=== PATIENT | female | born 1965 | race Caucasian/White ===

== ENCOUNTER → 2017-12-17 09:22 | Outpatient (REF) | payer OTHER, SELFPAY ==
[2017-12-17 13:24] LABS: COMMENT (LAB VIEW ONLY) 206.03 mg/dL; Microalb ug/mg Crea 2.7 ug/mg Cr
== END ==
LOC: NCHCN 09:22
PROVIDERS: PCP Family Medicine; Visit Provider Family Medicine
DX: E11.9 Type 2 diabetes mellitus without complications (principal)
CPT/HCPCS: 82043; 82570

== ENCOUNTER 2018-01-26 16:20 | Outpatient (CLI) | payer OTHER, SELFPAY ==
[2018-01-26 16:38] LABS: Abs Immature Grans 0.01 k/cumm (0.0-0.09); Absolute Basophil Count 0.05 k/cumm (0.0-0.2); Absolute Eosinophil Count 0.15 k/cumm (0.0-0.7); Absolute Lymphocyte Count 3.42 k/cumm (1.2-3.4); Absolute Monocyte Count 0.48 k/cumm (0.11-0.7); Absolute Neutrophil Count 3.47 k/cumm (1.2-6.7); Basophils % 0.7; HCT 37.1 % (36.0-46.0); HGB 12.2 g/dL (12.0-15.5); Immature Grans % 0.1; Lymphocytes % 45.1; Mean Corp. HGB Concentration 32.9 g/dL (32.0-36.0); Mean Corpuscular Hemoglobin 28.6 pg (27.0-33.0); Mean Corpuscular Volume 86.9 fL (80-95); Mean Platelet Volume 9.7 fL (8.0-11.0); Monocytes % 6.3; Neutrophils % 45.8; Platelet Count 298 x1000/uL (130-400); RBC 4.27 m/cumm (4.00-5.20); RBC Distribution Width 14.4 % (11.7-14.6); White Blood Cell Count 7.58 k/cumm (4.4-10.8)
[2018-01-26 17:02] LABS: ALT 35 U/L (12-78); AST 14 U/L (15-37); Albumin 3.6 g/dL (3.4-5.0); Alkaline Phosphatase 122 U/L (46-116); Anion Gap 7.1 mmol/L (3-11); BUN 17 mg/dL (7-18); Bilirubin, Total 0.2 mg/dL (0.2-1.0); CO2 28.9 mmol/L (21.0-32.0); CREATININE 0.85 mg/dL (0.55-1.02); Calcium 8.8 mg/dL (8.5-10.1); Chloride 102 mmol/L (98-107); Glucose 104 mg/dL (70-100); Potassium 3.7 mmol/L (3.5-5.1); Sodium 138 mmol/L (136-145); Total Protein 7.5 g/dL (6.4-8.2); Troponin I < 0.02 ng/mL (0.00-0.06)
== END 2018-01-26 16:40 ==
PROVIDERS: PCP Family Medicine; Visit Provider Family Medicine
DX: R07.9 Chest pain, unspecified (principal); R10.11 Right upper quadrant pain
CPT/HCPCS: 36415; 80053; 84484; 85025

== ENCOUNTER 2018-01-29 00:36 | Outpatient (CLI) | payer OTHER, SELFPAY ==
--- NOTE | 2018-01-29 07:22 | DI.US_ITS ---
SYMPTOM/DIAGNOSIS: RUQ ABD PAIN, R10.11 ABDOMEN ULTRASOUND: Routine examination was performed. The study is limited due to patient body habitus and overlying bowel. The aorta, IVC and pancreas were incompletely imaged. The liver is normal in size. There is diffuse increased echogenicity of the liver consistent with fatty infiltration. There is normal flow in the portal vein. There are several stones seen within the gallbladder. They appear mobile. No gallbladder wall thickening or pericholecystic fluid is seen. There is a negative sonographic Fong's sign. There do appear to be some stones in the gallbladder neck. The common duct is within normal limits at .5 cm. The spleen and kidneys are unremarkable. No free fluid is seen in the upper abdomen. IMPRESSION: 1. Cholelithiasis. No biliary ductal dilatation. 2. Hepatic steatosis.
== END 2018-01-29 00:56 ==
PROVIDERS: PCP Family Medicine; Visit Provider Family Medicine
DX: K80.20 Calculus of gallbladder without cholecystitis without obstruction (principal); K76.0 Fatty (change of) liver, not elsewhere classified
CPT/HCPCS: 76700

== ENCOUNTER 2018-04-17 00:16 | Outpatient (CLI) | payer OTHER, SELFPAY ==
--- NOTE | 2018-04-17 11:00 | DI.NM_ITS ---
SYMPTOMS/DIAGNOSIS: ABD PAIN RUQ, R10.11, GALLSTONES, K80.20, RECURRENT EPISODES OF RUQ C/W BILIARY COLIC HEPATOBILIARY SCAN: Hepatobiliary scan was performed with intravenous infusion of 4.7 millicuries of Technetium 99 labeled Mebrofenin. Following injection of radiopharmaceutical there was prompt homogeneous hepatic uptake and there is prompt uptake in the bile ducts, gallbladder and small intestine. CONCLUSION: Negative hepatobiliary scan. No evidence of acute cholecystitis.
== END 2018-04-17 00:36 ==
PROVIDERS: PCP Family Medicine; Visit Provider Family Medicine
DX: R10.11 Right upper quadrant pain (principal); K80.20 Calculus of gallbladder without cholecystitis without obstruction
CPT/HCPCS: 78227

== ENCOUNTER 2018-08-21 11:39 | Outpatient (REF) | payer OTHER, SELFPAY ==
[2018-08-21 19:13] LABS: Abs Immature Grans 0.06 k/cumm (0.0-0.09); HCT 40.9 % (36.0-46.0); HGB 13.2 g/dL (12.0-15.5); Mean Corp. HGB Concentration 32.3 g/dL (32.0-36.0); Mean Corpuscular Hemoglobin 28.6 pg (27.0-33.0); Mean Corpuscular Volume 88.7 fL (80-95); Mean Platelet Volume 10.2 fL (8.0-11.0); Platelet Count 336 x1000/uL (130-400); RBC 4.61 m/cumm (4.00-5.20); RBC Distribution Width 14.4 % (11.7-14.6); White Blood Cell Count 18.58 k/cumm (4.4-10.8)
[2018-08-21 19:29] LABS: NT-proBNP 105 pg/mL
[2018-08-21 19:37] LABS: Absolute Lymphocyte Count 5.57 k/cumm (1.2-3.4); Absolute Monocyte Count 1.67 k/cumm (0.11-0.7); Absolute Neutrophil Count 11.33 k/cumm (1.2-6.7); Atypical Lymphocytes % 1
[2018-08-21 19:39] LABS: Diff Comment Manual Differential; RBC Morphology Normal
== END 2018-08-21 11:59 ==
LOC: NCHCN 11:39
PROVIDERS: PCP Family Medicine; Visit Provider Family Medicine
DX: J20.9 Acute bronchitis, unspecified (principal); R06.02 Shortness of breath
CPT/HCPCS: 83880; 85025

== ENCOUNTER 2018-08-21 16:22 | Outpatient (CLI) | payer OTHER, SELFPAY ==
--- NOTE | 2018-08-21 11:40 | DI.RAD_ITS ---
SYMPTOMS/DIAGNOSIS: ACUTE BRONCHITIS WITH BRONCHOSPASM, J20.9, SHORTNESS OF BREATH, R06.02 PA AND LATERAL CHEST: The heart is normal in size. The lungs are clear. The mediastinal structures and pleura appear intact. CONCLUSION: Normal chest.
== END 2018-08-21 16:42 ==
PROVIDERS: PCP Family Medicine; Visit Provider Family Medicine
DX: J20.9 Acute bronchitis, unspecified (principal); R06.02 Shortness of breath
CPT/HCPCS: 71046

== ENCOUNTER 2018-08-26 00:20 | Outpatient (CLI) | payer OTHER, SELFPAY | END 2018-08-26 00:40 | PROVIDERS: PCP Family Medicine; Visit Provider Family Medicine | DX: R69 Illness, unspecified (principal) ==

== ENCOUNTER 2019-11-23 22:35 | Outpatient (REF) | payer OTHER, SELFPAY ==
[2019-11-23 18:53] LABS: Anion Gap 11.7 mmol/L (3-11); BUN 17 mg/dL (7-18); CO2 24.3 mmol/L (21.0-32.0); CREATININE 0.69 mg/dL (0.55-1.02); Calcium 9.4 mg/dL (8.5-10.1); Calculated LDL 103 mg/dL (<100); Chloride 102 mmol/L (98-107); Cholesterol 189 mg/dL (<200); Glucose 85 mg/dL (74-106); HDL Cholesterol 50 mg/dL (40-60); Sodium 138 mmol/L (136-145); Triglyceride 182 mg/dL (<150)
== END 2019-11-23 22:55 ==
LOC: NCHCN 22:35
PROVIDERS: PCP Family Medicine; Visit Provider Family Medicine
DX: E11.9 Type 2 diabetes mellitus without complications (principal); E78.5 Hyperlipidemia, unspecified
CPT/HCPCS: 80048; 80061

== ENCOUNTER 2019-12-15 02:06 | Outpatient (CLI) | payer OTHER, SELFPAY ==
--- NOTE | 2019-12-15 | DI.MAMMO_ITS ---
EXAM: MG MAMMO SCREENING MG MAMMO SCREENING was view CLINICAL HISTORY: SCREENING, PREVENTIVE CARE,Z00.00 TECHNIQUE: Mammograms were interpreted according to the usual protocol including computer analysis w [employer] CAD system, tomosynthesis and C-view imaging. COMPARISON: 2010 and 2014 FINDINGS: The breasts are composed of mainly fatty density , Breast Density category A. No suspicious masses or suspicious microcalcifications are seen. No skin thickening or abnormal axillary lymph nodes are seen. There has been no significant change from prior exams. IMPRESSION: BI-RADS Category 1, negative. Yearly screening mammography is recommended. Breast Density Category A, fatty density.
== END 2019-12-15 02:26 ==
PROVIDERS: PCP Family Medicine; Visit Provider Family Medicine
DX: Z12.31 Encounter for screening mammogram for malignant neoplasm of breast (principal); R92.2 Inconclusive mammogram
CPT/HCPCS: 77063; 77067

== ENCOUNTER 2020-01-02 10:40 | Emergency (ER) | payer OTHER, SELFPAY ==
[2020-01-02 10:42] VITALS: BP 133/84; PULSE 109; RESP 18; TEMP 36.6; O2SAT 97
[2020-01-02 10:44] VITALS: BP 153/96; PULSE 81; TEMP 36.6; O2SAT 97
--- NOTE | 2020-01-02 10:51 | ED.GENADUL_ITS ---
Discharge Plan Disposition Patient Disposition: HOME Condition: Improving Discharge Details Chief Complaint: Orthopedic Clinical Impression: Calcific tendinitis of left shoulder Primary Care Provider: Moise Lala ED Provider: Malvin Linda Home Meds and New Rx's Prescriptions: Continued acetaminophen [Tylenol] 325 MG tablet 600 mg PO TID RF: 0 bupropion HCl [Wellbutrin SR] 150 MG tablet extended release 12 hr 150 mg PO BID RF: 0 atorvastatin [Lipitor] 20 MG tablet 40 mg PO HS RF: 0 trazodone 50 MG tablet 50 mg PO HS RF: 0 omeprazole 10 MG capsule,delayed release(DR/EC) 20 mg PO BID RF: 0 cholecalciferol (vitamin D3) 5,000 UNIT capsule 5,000 unit PO DAILY RF: 0 vitamin V94-ebiro acid 1 EACH tablet 1 ea PO DAILY RF: 0 FLEXERIL 10 MG tablet 10 mg PO BID RF: 0 gabapentin 300 MG capsule 300 mg PO PRN RF: 0 tizanidine 2 MG tablet 2 mg PO PRN RF: 0 amlodipine 5 MG tablet 5 mg PO DAILY RF: 0 ferrous sulfate 325 MG tablet 325 mg PO BID RF: 0 nabumetone 500 MG tablet 500 mg PO BID RF: 0 albuterol sulfate [Proventil HFA] 90 mcg/actuation HFA aerosol inhaler 2 puff IH 6XD RF: 0 Trulicity 1.5 mg/0.5 mL pen injector 1.5 mg SC QWEEK RF: 0 nortriptyline 10 mg capsule 10 mg PO QHS RF: 0 ibuprofen 600 mg tablet 600 mg PO TID RF: 0 prochlorperazine maleate 10 mg tablet 10 mg PO BID PRNRF: 0 fluconazole [Diflucan] 150 mg tablet 150 mg PO ONCE RF: 0 ipratropium bromide 42 mcg (0.06 %) spray,non-aerosol 2 spray LORENA TID RF: 0 metformin 500 mg tablet 500 mg PO DAILY RF: 0 vitamin B complex [B Complex-Vitamin B12] Tablet 1 tab PO DAILY RF: 0 Discharge Instructions Instructions: Tendinitis (ED) Additional Instructions: Home to rest today. By ice to area to reduce discomfort. Please wear sling as needed for comfort 3 to 4 days time. Please follow-up with physical therapy. Tylenol and/or ibuprofen as needed for pain. Stand Alone Forms: Physical Therapy Referral Medical Decision Making 54-year-old female who caught herself from falling with outstretched overhead left arm 3 days ago. Since that time she has had dull, achy, anterior shoulder pain. She did not injure herself in any other way. No neck pain and no numbness or motor weakness. Most tender overlying bicipital insertion. X-ray reveals soft tissue calcification suspicious for calcific tendinitis. There is no other bony abnormalities appreciated. Patient consented for risks and benefits of a localized steroid injection with Kenalog. This was performed without difficulty. Will place her in a sling for comfort. I will refer her to physical therapy for follow-up. She understands plan of care and indications to seek a reevaluation. HPI General Mode of arrival: ambulatory . Date/Time Provider Initiated Documentation: 01/02/20 10:42 . Limitations to Documentation: no limitations . Information obtained by: patient . History of Present Illness 54 year old F presents to the emergency department with the chief complaint of Left shoulder pain 3 days, described as moderate, Quality is described as dull and constant, and is localized to the left and upper extremity. Patient reports no radiation. Patient started experiencing this hour(s) and it has been constant. No relieving factors improve symptom(s), No exacerbating factors reported . Patient notes denies fever/chills, headaches and shortness of breath. Patient did receive the following treatments prior to arrival, none Related Data Home Medications Medication Instructions Recorded Confirmed Flexeril 10 mg PO BID tab-cap 04/08/13 12/29/13 acetaminophen [Tylenol] 600 mg PO TID tab-cap 04/08/13 12/29/13 atorvastatin [Lipitor] 40 mg PO HS tab-cap 04/08/13 12/29/13 bupropion HCl [Wellbutrin SR] 150 mg PO BID tab-cap 04/08/13 12/29/13 cholecalciferol (vitamin D3) 5,000 unit PO DAILY 04/08/13 12/29/13 omeprazole 20 mg PO BID tab-cap 04/08/13 12/29/13 trazodone 50 mg PO HS 04/08/13 12/29/13 vitamin E72-hpdlb acid 1 ea PO DAILY 04/08/13 12/29/13 gabapentin 300 mg PO PRN 08/19/16 amlodipine 5 mg PO DAILY tab-cap 05/26/17 ferrous sulfate 325 mg PO BID 05/26/17 nabumetone 500 mg PO BID tab-cap 05/26/17 tizanidine 2 mg PO PRN 05/26/17 albuterol sulfate 90 mcg/actuation 2 puff IH 6XD 07/13/19 aerosol inhaler dulaglutide 1.5 mg/0.5 mL 1.5 mg SC QWEEK 07/13/19 subcutaneous pen injector fluconazole 150 mg tablet 150 mg PO ONCE 07/13/19 ibuprofen 600 mg tablet 600 mg PO TID 07/13/19 ipratropium bromide 42 mcg (0.06 2 spray LORENA TID 07/13/19 %) nasal spray metformin 500 mg tablet 500 mg PO DAILY 07/13/19 nortriptyline 10 mg capsule 10 mg PO QHS 07/13/19 prochlorperazine maleate 10 mg 10 mg PO BID PRN 07/13/19 tablet vitamin B complex 1 tab PO DAILY 07/13/19 Allergies Allergy/AdvReac Type Severity Reaction Status Date / Time latex Allergy Severe Skin Rash Unverified 01/02/20 10:50 Penicillins Allergy Severe Skin Rash Unverified 01/02/20 10:50 General Stated Complaint: Orthopedic RIGOBERTO: 3 Review of Systems Narrative: 6 systems reviewed and otherwise negative. No numbness or tingling, no weakness. [facility] Medical History Abnormal uterine bleeding Alopecia Anxiety associated with depression Chest pain (Inactive) Depression (Inactive) Fibromyalgia Gallstones (Acute) GERD (gastroesophageal reflux disease) History of juvenile rheumatoid arthritis (Inactive) HTN (hypertension) Hyperlipidemia LBBB (left bundle branch block) (Acute) Morbid obesity Obstructive sleep apnea Tobacco dependence Tobacco use (Inactive) Trochanteric bursitis, left hip (Acute) Type 2 diabetes mellitus (Acute) Surgical History (Updated 07/13/19 @ 15:07 by Radha Jamil RN) Dilation and curettage H/O: hysterectomy (Chronic) History of Surgical Procedure (Inactive) a. D/C x1. Family History Mother Rheumatoid arthritis Father Heart disease Neoplasm lung ca Social History Smoking/Tobacco Use Status: Current every day Tobacco Type: cigarettes Drug use: Never Substance use type: does not use Do you feel safe at home: Yes Do you feel safe in your relationship?: Yes Exam Narrative Exam Narrative: GEN: awake, alert, oriented 3. Pleasant, well groomed, interactive. HEAD: Normocephalic, atraumatic EYES: PERRL, EOMI NECK: Full ROM, no RODRICK, no menigismus CHEST/RESP: Nontender, clear to auscultation bilateral, no wheeze/rhonchi/rales CARDIOVASCULAR: RRR, no murmur, rub cee. 2+ Rad pulse bilateral EXT: Subjective pain with active range of motion left shoulder. Left shoulder anterior tenderness to palpation. Motor is intact, station intact throughout. Neuro: Grossly normal neurologic exam, conversant, interactive. Psych: Speech fluent, thoughts congruent, affect normal Course Vital Signs Vital signs: Vital Signs Temperature 36.6 C 01/02/20 10:42 Pulse 109 H 01/02/20 10:42 Respiratory Rate 18 01/02/20 10:42 Blood Pressure 133/84 01/02/20 10:42 Pulse Oximetry 97 01/02/20 10:42 Temperature 36.6 C 01/02/20 10:44 Temperature Source Temporal Artery Scan 01/02/20 10:44 Pulse 81 01/02/20 10:44 Respiratory Rate 18 01/02/20 10:42 Respiratory Effort Non-Labored 01/02/20 10:47 Blood Pressure 153/96 H 01/02/20 10:44 Blood Pressure Position Sitting 01/02/20 10:44 Pulse Oximetry 97 01/02/20 10:44 Oxygen Delivery Method Room Air 01/02/20 10:44 Oxygen Flow Rate 0 01/02/20 10:44 Pain Level 7 01/02/20 10:44 Procedures Other Description: After informed consent as to risks and benefits, left anterior bicipital tendon was injected with 2 cc of Marcaine and 1 cc of Kenalog without difficulty
--- NOTE | 2020-01-02 11:15 | DI.RAD_ITS ---
EXAM: XR SHOULDER LT COMPLETE 2+V CLINICAL HISTORY: anterior pain. TECHNIQUE: 2D digital imaging was performed. COMPARISON: No exams were available for comparison FINDINGS: There are degenerative changes of the AC joint and glenoid. There is some spurring at the tip of the acromion. No fracture or dislocation is seen. There are calcifications around the humeral head con sistent with calcific tendinosis. IMPRESSION: No acute abnormality. Degenerative changes and calcific tendinosis. DATA REPOSITORY: RADIATION DOSE DELIVERED:
--- NOTE | 2020-01-02 11:17 | DI.VRAD_ITS ---
PROCEDURE INFORMATION: Exam: XR Left Shoulder Exam date and time: 01/02/2020 11:08 AM Age: 54 years old Clinical indication: Pain; Shoulder; Left TECHNIQUE: Imaging protocol: XR Left shoulder. Views: 2 or more views. COMPARISON: No relevant prior studies available. FINDINGS: Bones/joints: Acromioclavicular degenerative spurring. All bones are intact and normally aligned. Soft tissues: Faint/amorphous type calcification along the lateral margins of the subacromial space suspicious for calcific tendinitis. No joint effusion or joint body. IMPRESSION: 1. Soft tissue calcification suspicious for calcific tendinitis. 2. Acromioclavicular osteoarthrosis. Dictated and Authenticated by: Guille Jimenez MD. Ordering:NAWAF Coombs MD
[2020-01-02] MEDS: Bupivacaine 0.5% Pres-Free 30 ML VIAL IJ (12:01)
[2020-01-02] MEDS: Triamcinolone 40 MG/ML VIAL IM (12:02)
[2020-01-02 12:07] VITALS: BP 152/82; PULSE 74; RESP 16; TEMP 36.6; O2SAT 98
== END 2020-01-02 12:11 | disposition home or self-care (01) ==
PROVIDERS: Emergency Provider Emergency Medicine; PCP Family Medicine
DX: M75.32 Calcific tendinitis of left shoulder (principal); X50.9XXA Other and unspecified overexertion or strenuous movements or postures, initial encounter; I10 Essential (primary) hypertension; E11.9 Type 2 diabetes mellitus without complications
CPT/HCPCS: 20610; 99283; 73030; 99281; L3650

== ENCOUNTER 2020-01-03 10:35 | Emergency (ER) | payer OTHER, SELFPAY ==
[2020-01-03 10:37] VITALS: BP 155/76; PULSE 82; RESP 16; TEMP 36.6; O2SAT 98
--- NOTE | 2020-01-03 11:16 | ED.GENADUL_ITS ---
Discharge Plan Disposition Patient Disposition: HOME Condition: Stable Discharge Details Chief Complaint: Orthopedic Clinical Impression: Left shoulder pain Primary Care Provider: Moise Lala ED Provider: Trupti Galarza Home Meds and New Rx's Prescriptions: Continued acetaminophen [Tylenol] 325 MG tablet 600 mg PO TID RF: 0 atorvastatin [Lipitor] 20 MG tablet 40 mg PO HS RF: 0 trazodone 50 MG tablet 50 mg PO HS RF: 0 omeprazole 10 MG capsule,delayed release(DR/EC) 20 mg PO BID RF: 0 cholecalciferol (vitamin D3) 5,000 UNIT capsule 5,000 unit PO DAILY RF: 0 vitamin X67-iuqey acid 1 EACH tablet 1 ea PO DAILY RF: 0 tizanidine 2 MG tablet 2 mg PO PRN RF: 0 amlodipine 5 MG tablet 5 mg PO DAILY RF: 0 ferrous sulfate 325 MG tablet 325 mg PO BID RF: 0 albuterol sulfate [Proventil HFA] 90 mcg/actuation HFA aerosol inhaler 2 puff IH 6XD RF: 0 Trulicity 1.5 mg/0.5 mL pen injector 1.5 mg SC QWEEK RF: 0 nortriptyline 10 mg capsule 10 mg PO QHS RF: 0 ibuprofen 600 mg tablet 600 mg PO TID RF: 0 prochlorperazine maleate 10 mg tablet 10 mg PO BID PRNRF: 0 metformin 500 mg tablet 500 mg PO DAILY RF: 0 vitamin B complex [B Complex-Vitamin B12] Tablet 1 tab PO DAILY RF: 0 Discharge Instructions Instructions: Shoulder Pain (ED) Additional Instructions: Follow up with primary care provider in 3-5 days. Return to ED sooner if any worsening or concerns. Increase oral fluids. Please take Tylenol or Ibuprofen with food every 4-6 hours as needed for pain and swelling. Take medications as directed for severe pain no driving. Stand Alone Forms: Work Release Referrals: Moise Lala [Primary Care Provider] - Discharge Data Discharge Date/Time-TO BE ENTERED AT DEPARTURE: 01/03/20 11:25 Medical Decision Making We will send patient home with 2 tablets of tramadol and a take-home bottle. Will give work note as requested. HPI General Mode of arrival: ambulatory . Date/Time Provider Initiated Documentation: 01/03/20 11:08 . Limitations to Documentation: no limitations . Information obtained by: patient . HPI Narrative: 54-year-old female presents to the ER for a work note request. Was seen here yesterday and had a steroid injection to her left shoulder. Patient reports increased pain. Does have a PCP appointment on Friday requests a work note until her appointment. Denies any other complaints. Related Data Home Medications Medication Instructions Recorded Confirmed acetaminophen [Tylenol] 600 mg PO TID tab-cap 04/08/13 01/03/20 atorvastatin [Lipitor] 40 mg PO HS tab-cap 04/08/13 01/03/20 cholecalciferol (vitamin D3) 5,000 unit PO DAILY 04/08/13 01/03/20 omeprazole 20 mg PO BID tab-cap 04/08/13 01/03/20 trazodone 50 mg PO HS 04/08/13 01/03/20 vitamin K41-mbjeb acid 1 ea PO DAILY 04/08/13 01/03/20 amlodipine 5 mg PO DAILY tab-cap 05/26/17 01/03/20 ferrous sulfate 325 mg PO BID 05/26/17 01/03/20 tizanidine 2 mg PO PRN 05/26/17 01/03/20 albuterol sulfate 90 mcg/actuation 2 puff IH 6XD 07/13/19 01/03/20 aerosol inhaler dulaglutide 1.5 mg/0.5 mL 1.5 mg SC QWEEK 07/13/19 01/03/20 subcutaneous pen injector ibuprofen 600 mg tablet 600 mg PO TID 07/13/19 01/03/20 metformin 500 mg tablet 500 mg PO DAILY 07/13/19 01/03/20 nortriptyline 10 mg capsule 10 mg PO QHS 07/13/19 01/03/20 prochlorperazine maleate 10 mg 10 mg PO BID PRN 07/13/19 01/03/20 tablet vitamin B complex 1 tab PO DAILY 07/13/19 01/03/20 Allergies Allergy/AdvReac Type Severity Reaction Status Date / Time latex Allergy Severe Skin Rash Unverified 01/03/20 10:44 Penicillins Allergy Severe Skin Rash Unverified 01/03/20 10:44 General Stated Complaint: Orthopedic RIGOBERTO: 4 Review of Systems All systems reviewed & are unremarkable except as noted in HPI and below Musculoskeletal Musculoskeletal: Reports arthralgias (Left shoulder) [facility] Medical History Abnormal uterine bleeding Alopecia Anxiety associated with depression Chest pain (Inactive) Depression (Inactive) Fibromyalgia Gallstones (Acute) GERD (gastroesophageal reflux disease) History of juvenile rheumatoid arthritis (Inactive) HTN (hypertension) Hyperlipidemia LBBB (left bundle branch block) (Acute) Morbid obesity Obstructive sleep apnea Tobacco dependence Tobacco use (Inactive) Trochanteric bursitis, left hip (Acute) Type 2 diabetes mellitus (Acute) Surgical History Dilation and curettage H/O: hysterectomy (Chronic) History of Surgical Procedure (Inactive) a. D/C x1. Family History Mother Rheumatoid arthritis Father Heart disease Neoplasm lung ca Social History Smoking/Tobacco Use Status: Current every day Tobacco Type: cigarettes Drug use: Never Substance use type: does not use Do you feel safe at home: Yes Do you feel safe in your relationship?: Yes Exam Narrative Exam Narrative: Constitutional: Alert and oriented x3. Appears stated age. Normal body habitus. Head: Normocephalic, no trauma. Musculoskeletal: Normal gait, reports left shoulder pain. There is a Band-Aid noted to the anterior aspect where there was a previous steroid injection. No significant swelling or erythema noted. Skin: No suspicious rashes or lesions. Capillary refill less than 2 sec. Neurologic: Cranial nerves II-XII intact. Alert and oriented x 3. Hematologic/Lymphatic: No ecchymosis, no lymphadenopathy. Course Vital Signs Vital signs: Vital Signs Temperature 36.6 C 01/03/20 10:37 Pulse 82 01/03/20 10:37 Respiratory Rate 16 01/03/20 10:37 Blood Pressure 155/76 H 01/03/20 10:37 Pulse Oximetry 98 01/03/20 10:37 Temperature 36.6 C 01/03/20 10:37 Temperature Source Skin 01/03/20 10:37 Pulse 82 01/03/20 10:37 Respiratory Rate 16 01/03/20 10:37 Respiratory Effort 01/03/20 10:42 Blood Pressure 155/76 H 01/03/20 10:37 Blood Pressure Position Sitting 01/03/20 10:37 Pulse Oximetry 98 01/03/20 10:37 Oxygen Delivery Method Room Air 01/03/20 10:37 Oxygen Flow Rate 0 01/03/20 10:37 Pain Level 8 01/03/20 10:42
== END 2020-01-03 11:25 | disposition home or self-care (01) ==
PROVIDERS: Emergency Provider Registered Nurse Emergency; PCP Family Medicine
DX: M25.512 Pain in left shoulder (principal); Z02.79 Encounter for issue of other medical certificate
CPT/HCPCS: 99283; 99282

== ENCOUNTER 2020-01-11 11:04 | Outpatient (CLI) | payer OTHER, SELFPAY ==
--- NOTE | 2020-01-11 10:45 | DI.RAD_ITS ---
EXAM: XR SHOULDER LT 1V CLINICAL HISTORY: f/u ER TECHNIQUE: COMPARISON: CR,XR XR SHOULDER LT COMPLETE 2+V from 01/02/2020 FINDINGS: Single view was obtained and shows the humeral head normally aligned with respect to the glenoid desiree a. IMPRESSION: RADIATION DOSE DELIVERED: Total DLP
== END 2020-01-11 11:24 ==
PROVIDERS: PCP Family Medicine; Referring Provider Family Medicine; Visit Provider Student in an Organized Health Care Education/Training Program
DX: M25.512 Pain in left shoulder (principal)
CPT/HCPCS: 73020

== ENCOUNTER 2020-01-21 04:12 | Outpatient (CLI) | payer OTHER, SELFPAY ==
--- NOTE | 2020-01-21 07:15 | DI.MRI_ITS ---
EXAM: MR UPPER JOINT LT WO CLINICAL HISTORY: Profound acute, traumatic weakness pain, SLAP LESION, S43.432A, S46.012A. TECHNIQUE: Multiplanar multisequence MRI was performed. COMPARISON: CR,XR XR SHOULDER LT COMPLETE 2+V from 01/02/2020 CR XR SHOULDER LT 1V from 01/11/2020 FINDINGS: BONES: There is no fracture or contusion pattern. JOINTS: Mild degenerative changes of the AC joint. The glenohumeral joint is normal. TENDONS: Supraspinatus: Tendinosis of the supraspinatus tendon. Infraspinatus: Tendinosis of the infraspinatus tendon. Subscapularis: Tendinosis of the subscapularis tendon. Teres Minor: Unremarkable. Biceps and Cromwell: Unremarkable. MUSCLES: Unremarkable. GLENOID LABRUM: Unremarkable on this noncontrast examination. MR arthrogram may be obtained for furth er evaluation. SOFT TISSUES: Unremarkable. LIGAMENTS: Unremarkable. OTHER: There is fluid seen in the subacromial subdeltoid bursa. IMPRESSION: 1. Tendinosis involving the rotator cuff tendons. 2. Subacromial subdeltoid bursitis. 3. Degenerative changes of the acromioclavicular joint. DATA REPOSITORY:
== END 2020-01-21 04:32 ==
PROVIDERS: PCP Family Medicine; Visit Provider Student in an Organized Health Care Education/Training Program
DX: M77.9 Enthesopathy, unspecified (principal); M75.52 Bursitis of left shoulder; M19.012 Primary osteoarthritis, left shoulder
CPT/HCPCS: 73221

== ENCOUNTER 2020-03-30 08:40 | Outpatient (CLI) | payer OTHER, SELFPAY ==
[2020-03-31 15:32] LABS: SARS-CoV-2 RNA Not Detected (NotDetected); SARS-CoV-2 RNA Source Nasal/Nares
== END 2020-03-30 09:00 ==
PROVIDERS: PCP Family Medicine; Visit Provider Surgery
DX: Z11.59 Encounter for screening for other viral diseases (principal); Z01.818 Encounter for other preprocedural examination
CPT/HCPCS: U0003

== ENCOUNTER 2020-04-03 10:06 | Day surgery (SDC) | payer OTHER, SELFPAY ==
--- NOTE | 2020-04-03 06:50 | COLE_ITS ---
Date of service: 04/03/20 Time of Service: 11:55 Colonoscopy Report Date of procedure: 04/03/20 Pre-op diagnosis general: Colon Cancer Screening Post-op diagnosis procedure note: other (polyps and mild diverticulosis) Procedure: Colonoscopy with polypectomy Surgeon: Sharona Duran Anesthesia proc note operative: other (General/ASA 2/Heavenly Wilson, JAMIE) Estimated blood loss (mL): 5 Pathology: other (Cecal polyps x2, sigmoid polyps x3, rectal polyp) Complications: None Disposition: same day Indications: The patient is here for Colonoscopy pre-op. She has no family history of colon cancer. She has not had any bowel habit changes. -Discussed colonoscopy bowel prep as well as the procedure. Discussed possible complications of the procedure to include bleeding, pain, perforation, missed small lesion/polyp, sore throat, aspiration and adverse reaction to the medications. Questions were answered to patient?s satisfaction. No guarantees were implied or given. Prep: Miralax/Dulcolax Procedure Start Time: 11:55 Procedure End Time: 12:24 Retraction Time: 21 minutes Findings: multiple small polyps mild diverticulosis Procedure Description: After informed consent was obtained the patient was taken to the procedure room and placed in a left decubitous position. Monitors were applied and a time out was done. The patients name, date of , procedure, allergies to medications and metal in their body was reviewed. The patient was then sedated. Once sedated and comfortable a rectal exam was done. External exam was normal. Internal exam revealed a normal sphincter tone and no palpable masses. The scope was then introduced and retro-flexed. No internal hemorrhoids were identified. The scope was then advanced to the cecum without difficulty. The ileocecal valve and appendiceal orifice were identified. The prep was good. The scope was then slowly retracted over 21 minutes back into the rectum. Polyps were removed with cold forceps in the cecum x2, sigmoid x3 and rectum. There was mild diverticulosis of the sigmoid colon. The scope was removed and the patient was woken up and taken back to Same day surgery in stable condition. The patient tolerated the procedure well and there were no immediate compl ications. Follow up: The patient should follow up in 3-5 years unless they develop changes in bowel habits or other new gastrointestinal complaints.
--- NOTE | 2020-04-03 06:51 | W.PM.DSUDISC ---
Discharge Plan Disposition Patient Disposition: HOME Condition: Good Discharge Details Reason For Visit: colonoscopy Attending Provider: Sharona Duran Primary Care Provider: Moise Lala Home Meds and New Rx's Prescriptions: Continued acetaminophen [Tylenol] 325 MG tablet 650 mg PO TID RF: 0 atorvastatin [Lipitor] 20 MG tablet 40 mg PO HS RF: 0 trazodone 50 MG tablet 50 mg PO HS RF: 0 omeprazole 10 MG capsule,delayed release(DR/EC) 20 mg PO BID RF: 0 cholecalciferol (vitamin D3) 5,000 UNIT capsule 5,000 unit PO DAILY RF: 0 vitamin U02-krgav acid 1 EACH tablet 1 ea PO DAILY RF: 0 tizanidine 2 MG tablet 2 mg PO PRN RF: 0 amlodipine 5 MG tablet 5 mg PO DAILY RF: 0 Trulicity 1.5 mg/0.5 mL pen injector 1.5 mg SC QWEEK RF: 0 nortriptyline 10 mg capsule 10 mg PO QHS RF: 0 ibuprofen 600 mg tablet 600 mg PO TID RF: 0 prochlorperazine maleate 10 mg tablet 10 mg PO BID PRNRF: 0 metformin 500 mg tablet 500 mg PO DAILY RF: 0 vitamin B complex [B Complex-Vitamin B12] Tablet 1 tab PO DAILY RF: 0 Discontinued polyethylene glycol 3350 17 gram/dose powder 238 g PO ONCE Qty: 238 RF: 0 bisacodyl [Dulcolax (bisacodyl)] 5 mg tablet,delayed release (DR/EC) 5 mg PO ONCE Qty: 4 RF: 0 Discharge Instructions Instructions: Diverticulosis (DC), Colorectal Polyps (DC) Additional Instructions: Findings: 5 small polyps mild diverticulosis Follow up: 3-5 years depending on the pathology results Please call if you develop: fevers >101.5 Nausea or Vomiting Abdominal pain that is not transient DAY SURGERY UNIT POST ENDOSCOPY INSTRUCTIONS 1. Because there will be medication in your system for the next 24 hours, you may feel a little sleepy. Your coordination will be affected. Therefore: a. Do not drive or operate dangerous equipment for 24 hours. b. Do not drink alcohol beverages for 24 hours (not even beer). c. Plan to go home and rest for the day. 2. Generally there are no restrictions on your activity after a day or so has gone by, but you may feel a bit fatigued for a few days. 3 After you arrive home you may have a light meal and return to a normal diet as you can tolerate it without feeling sick to your stomach. 4. After surgery, you may feel pain or discomfort. This should be only transient, but if it persists please contact your doctor. 5. If there are any questions regarding the findings of your procedure, please feel free to contact your doctor. 6. If you are unable to contact your doctor with a problem, contact the hospital at [phone]. 7. Continue all your regular medications unless directed otherwise. I understand the above instructions and have no questions. Signature of Patient or Responsible Adult Escort Date/Time Name of Responsible Adult Escort Signature of Nurse Date/Time Activity:: Activity as Tolerated Diet:: High fiber diet Discharge Orders Discharge Orders: Discharge Order (Routine); Ordered 04/03/20 Ordered By: Sharona Duran
[2020-04-03 10:15] VITALS: BP 143/83; PULSE 95; RESP 18; TEMP 36.4; O2SAT 99
[2020-04-03] MEDS: Lactated Ringers 1,000 ML 80 ML IV (10:51)
--- NOTE | 2020-04-03 12:00 | BOWEL_PTH ---
PATIENT: Nikia Denton LOC: [facility] U#:[id number] AGE/SX: 54/F ROOM: RE04/03/[address]: Sharona Duran MD : [id number] BED: DIS: 04/03/2020 SPEC #: [id number] RECD: 04/03/20 17:27 STATUS: IVETTE REQ #: [id number] JESS: 04/03/20 12:[address]: Sharona Duran DEPT: Surgical Specimen RECD BY: Estella Galarza ENTERED: 04/03/20 17:28 SP TYPE: Bowel OTHR DR: Moise Lala Tissues: 1 - BIOPSY BOWEL 2 - BIOPSY BOWEL 3 - BIOPSY BOWEL Procedures: GROSS AND MICRO LEVEL 4 Comments: [id number] ([id number] [facility] [place])
[2020-04-03 13:03] VITALS: BP 165/91; PULSE 79; RESP 16; TEMP 36.5; O2SAT 98
[2020-04-03 13:30] VITALS: BP 154/90; PULSE 71; RESP 18; TEMP 36.4; O2SAT 96
== END 2020-04-03 14:30 | disposition home or self-care (01) ==
LOC: SUR 10:07
PROVIDERS: PCP Family Medicine; Visit Provider Surgery
PROC: 0DJD8ZZ Inspection of Lower Intestinal Tract, Via Natural or Artificial Opening Endoscopic (ICD-10-PCS; CPT 45378; principal; 2020-04-03 10:30)
DX: Z12.11 Encounter for screening for malignant neoplasm of colon (principal); D12.0 Benign neoplasm of cecum; K63.5 Polyp of colon; K62.1 Rectal polyp; K57.30 Diverticulosis of large intestine without perforation or abscess without bleeding; E11.9 Type 2 diabetes mellitus without complications; Z79.84 Long term (current) use of oral hypoglycemic drugs; I10 Essential (primary) hypertension; K21.9 Gastro-esophageal reflux disease without esophagitis; G47.33 Obstructive sleep apnea (adult) (pediatric)
CPT/HCPCS: 45380; 88305; J2001; J2704

== ENCOUNTER 2020-04-05 15:04 | Emergency (ER) | payer OTHER, SELFPAY ==
[2020-04-05 15:14] VITALS: BP 141/80; PULSE 90; RESP 18; TEMP 37; O2SAT 98
--- NOTE | 2020-04-05 15:15 | DI.CT_ITS ---
EXAM: CT ABDOMEN PELVIS W CLINICAL HISTORY: Abdominal pain post procedure TECHNIQUE: Imaging Protocol: Axial computed tomography images with coronal and sagittal reformatted images were created and reviewed CONTRAST MATERIAL: Intravenous: Omnipaque 350 Contrast volume:100 mL Oral: No COMPARISON: No exams were available for comparison FINDINGS: ABDOMEN: Lung Bases: Mild dependent atelectasis. Liver: Diffuse decreased attenuation consistent with fatty infiltration. No measurable mass. Portal, Superior Mesenteric, and Splenic Veins: Unremarkable. Gallbladder and Biliary Tract: Cholelithiasis. No biliary ductal dilatation. Pancreas: There is a 1 mm density seen in the head of the pancreas in the region of the bile duct whi ch may represent a stone (series 5, image 315). No pancreatic inflammatory process. Spleen: Normal. Adrenals: No masses seen. Kidneys: Normal size, contour and axis. No radiodense stones or obstructive uropathy. No masses seen. Abdominal Aorta: Abdominal portion non-dilated. Moderate atherosclerosis. Bowel: No obstruction or bowel wall thickening. Appendix is unremarkable. Peritoneal Cavity: No ascites, collection or mesenteric inflammatory response. Lymph Nodes: Within normal limits. Bones: Mild degenerative changes are seen in the spine. Soft Tissues: Unremarkable. PELVIS: Bladder: Symmetric distention, no gross wall thickening. Reproductive Organs: Status post hysterectomy. Lymph Nodes: Within normal limits. Bones: Mild degenerative changes in the spine. IMPRESSION: 1. No acute abdominal or pelvic process. 2. Hepatic steatosis, cholelithiasis and atherosclerosis. 3. 1-2 mm density in the head of the pancreas which appears to be associated with the bile duct. Thi s may reflect choledocholithiasis. Please correlate clinically. Follow-up as clinically appropriate . RADIATION DOSE DELIVERED: 1,520.44mGy.cm Total DLP DATA REPOSITORY: All CT scans at this facility are submitted to the National Radiology Data Registry (NRDR) Dose Index Registry (DIR) with the [employer] ([employer]). RADIATION OPTIMIZATION: All CT scans at this facility use at least one of these dose optimization te chniques: automated exposure control; mA and/or kV adjustment per patient size (includes targeted exa ms where dose is matched to clinical indication); or iterative reconstruction.
--- NOTE | 2020-04-05 15:20 | W.ED.GENAD ---
Discharge Plan Disposition Patient Disposition: HOME Condition: Stable Discharge Details Clinical Impression: Abdominal pain Primary Care Provider: Moise Lala ED Provider: Julienne Tellez Home Meds and New Rx's Prescriptions: No Action acetaminophen [Tylenol] 325 MG tablet 650 mg PO TID RF: 0 atorvastatin [Lipitor] 20 MG tablet 40 mg PO HS RF: 0 trazodone 50 MG tablet 50 mg PO HS RF: 0 omeprazole 10 MG capsule,delayed release(DR/EC) 20 mg PO BID RF: 0 cholecalciferol (vitamin D3) 5,000 UNIT capsule 5,000 unit PO DAILY RF: 0 vitamin [id number] acid 1 EACH tablet 1 ea PO DAILY RF: 0 tizanidine 2 MG tablet 2 mg PO PRN RF: 0 amlodipine 5 MG tablet 5 mg PO DAILY RF: 0 Trulicity 1.5 mg/0.5 mL pen injector 1.5 mg SC QWEEK RF: 0 nortriptyline 10 mg capsule 10 mg PO QHS RF: 0 ibuprofen 600 mg tablet 600 mg PO TID RF: 0 prochlorperazine maleate 10 mg tablet 10 mg PO BID PRNRF: 0 metformin 500 mg tablet 500 mg PO DAILY RF: 0 vitamin B complex [B Complex-Vitamin B12] Tablet 1 tab PO DAILY RF: 0 Discharge Instructions Instructions: Abdominal Pain (ED) Additional Instructions: Continue previous postoperative instructions.. Walking may help with gas pain and expulsion Continue usual medications as previously directed Drink at least 6 to 8 glasses of water daily to stay well-hydrated Return immediately for new or worsening symptoms Referrals: Moise Lala [Primary Care Provider] - Discharge Data Discharge Date/Time-TO BE ENTERED AT DEPARTURE: 04/05/20 18:08 Medical Decision Making <Trupti Galarza - Last Filed: 04/06/20 08:13> 53-year-old female presents to the ER chief complaint of left lower quadrant abdominal pain which is increasing for colonoscopy on Friday. She denies any bloody stool, no vomiting no fever. She reports moving a little bit of gas and having a small amount of diarrhea. 5 polyps were removed and some diverticulosis was noted. Please see surgeon's note. Patient has a past medical history of hypertension, diabetes, GERD, tendinitis, left bundle branch block, tobacco dependence. 1541: Work-up ordered including CBC, CMP, lipase, urinalysis, CT abdomen pelvis with IV contrast only. Differential diagnosis includes bowel perforation, GI bleed, diverticulitis, gastroenteritis, post procedure pain, cholecystitis. Care to be handed off to oncoming provider Julienne Tellez NP pending lab and CT abdomen pelvis. <Julienne Tellez NP - Last Filed: 04/05/20 17:43> patient received from Grant Sepulveda APRN, patient is stable hemodynamically, abdominal exam benign. her labs and CT are reveiwed and unremarkable, findings discussed with patient who will be discharged with f/u with surgery as previously scheduled. return here sooner Medical Records Medical records reviewed: Yes I reviewed the patient's medical records. Medical records narrative: CT abdomen and pelvis: FINDINGS: Liver: Diffuse abnormal low attenuating liver indicating hepatic steatosis. Gallbladder and bile ducts: Multiple gallstones. Pancreas: Normal. Spleen: Normal. Adrenal glands: Normal. No mass. Kidneys and ureters: Normal. Stomach and bowel: Normal. Appendix: Normal appendix. Intraperitoneal space: No ascites, pneumoperitoneum or peritoneal lesion. Vasculature: Mild atherosclerosis of the abdominal aorta, pelvic arteries and mesenteric vessels. Lymph nodes: No mesenteric, retroperitoneal or inguinal adenopathy. Urinary bladder: See Reproductive finding. Reproductive: There has been prior hysterectomy. Normal ovaries. Normal bladder. Bones/joints: No fracture or suspicious osseous lesion. Soft tissues: No mass or hernia. IMPRESSION: 1. No acute disease in the abdomen or pelvis. No evident complication from colonoscopy. 2. Incidental findings not requiring imaging follow-up include fatty liver, cholelithiasis and atherosclerosis. Lab Data Lab results reviewed: Yes I reviewed the patient's lab results. Lab results narrative: Laboratory Tests Range/Units 04/05/20 04/05/20 04/05/20 15:43 15:43 15:45 WBC (4.4-10.8) 10^3/uL 8.27 RBC (3.93-5.22) 10^6/uL 4.19 Hgb (11.2-15.7) g/dL 12.0 Hct (36.0-46.0) % 36.4 MCV (80-95) fL 86.9 MCH (27.0-33.0) pg 28.6 MCHC (32.0-36.0) % 33.0 RDW (11.7-14.6) % 14.1 Plt Count (130-400) 10^3/uL 351 MPV (8.0-11.0) fL 9.6 Immature Gran % 0.4 Neutrophils % 47.8 Lymphocytes % 42.4 Monocytes % 7.6 Eosinophils % 1.2 Basophils % 0.6 Nucleated RBC % % 0 Absolute Neutrophils (1.2-6.7) 10^3/uL 3.95 Absolute Lymphocytes (1.2-3.4) 10^3/uL 3.51 H Absolute Monocytes (0.1-0.8) 10^3/uL 0.63 Absolute Eosinophils (0.0-0.7) 10^3/uL 0.10 Absolute Basophils (0.0-0.2) 10^3/uL 0.05 Sodium (136-145) mmol/L 137 Potassium (3.5-5.1) mmol/L 3.4 L Chloride (98-107) mmol/L 101 Carbon Dioxide (21.0-32.0) mmol/L 26.3 Anion Gap (3-11) mmol/L 9.7 BUN (7-18) mg/dL 16 Creatinine (0.55-1.02) mg/dL 0.83 Estimated GFR/1.73 m2 (mL/min/1.73m2) >= 60.00 Glucose (74-106) mg/dL 92 Calcium (8.5-10.1) mg/dL 8.9 Magnesium (1.8-2.4) mg/dL 1.9 Total Bilirubin (0.2-1.0) mg/dL 0.3 AST (15-37) U/L 19 ALT (14-59) U/L 41 Alkaline Phosphatase (46-116) U/L 120 H Total Protein (6.4-8.2) g/dL 7.5 Albumin (3.4-5.0) g/dL 3.8 Lipase (73-393) U/L 117 Urine Color (Yellow) Urine Clarity (Clear) Urine pH (5-8) Ur Specific [place] (1.005-1.025) Urine Protein (Negative) mg/dL Urine Ketones (Negative) mg/dL Urine Blood (Negative) Urine Nitrite (Negative) Urine Bilirubin (Negative) Urine Urobilinogen (Up TO 0.2) EU/dL Ur Leukocyte Esterase (Negative) Urine Glucose (Negative) mg/dL Range/Units 04/05/ 17:18 WBC (4.4-10.8) 10^3/uL RBC (3.93-5.22) 10^6/uL Hgb (11.2-15.7) g/dL Hct (36.0-46.0) % MCV (80-95) fL MCH (27.0-33.0) pg MCHC (32.0-36.0) % RDW (11.7-14.6) % Plt Count (130-400) 10^3/uL MPV (8.0-11.0) fL Immature Gran % Neutrophils % Lymphocytes % Monocytes % Eosinophils % Basophils % Nucleated RBC % % Absolute Neutrophils (1.2-6.7) 10^3/uL Absolute Lymphocytes (1.2-3.4) 10^3/uL Absolute Monocytes (0.1-0.8) 10^3/uL Absolute Eosinophils (0.0-0.7) 10^3/uL Absolute Basophils (0.0-0.2) 10^3/uL Sodium (136-145) mmol/L Potassium (3.5-5.1) mmol/L Chloride (98-107) mmol/L Carbon Dioxide (21.0-32.0) mmol/L Anion Gap (3-11) mmol/L BUN (7-18) mg/dL Creatinine (0.55-1.02) mg/dL Estimated GFR/1.73 m2 (mL/min/1.73m2) Glucose (74-106) mg/dL Calcium (8.5-10.1) mg/dL Magnesium (1.8-2.4) mg/dL Total Bilirubin (0.2-1.0) mg/dL AST (15-37) U/L ALT (14-59) U/L Alkaline Phosphatase (46-116) U/L Total Protein (6.4-8.2) g/dL Albumin (3.4-5.0) g/dL Lipase (73-393) U/L Urine Color (Yellow) Yellow Urine Clarity (Clear) Sl cloudy Urine pH (5-8) 6.5 Ur Specific [place] (1.005-1.025) 1.010 Urine Protein (Negative) mg/dL Negative Urine Ketones (Negative) mg/dL Negative Urine Blood (Negative) Negative Urine Nitrite (Negative) Negative Urine Bilirubin (Negative) Negative Urine Urobilinogen (Up TO 0.2) EU/dL 0.2 Ur Leukocyte Esterase (Negative) Negative Urine Glucose (Negative) mg/dL Negative HPI <Trupti Galarza - Last Filed: 04/06/20 08:13> General Mode of arrival: ambulatory. Date/Time Provider Initiated Documentation: 04/05/20 15:06. Limitations to Documentation: no limitations. Information obtained by: patient. HPI Narrative: 53-year-old female presents to the ER chief complaint of left lower quadrant abdominal pain which is increasing for colonoscopy on Friday. She denies any bloody stool, no vomiting no fever. She reports moving a little bit of gas and having a small amount of diarrhea. 5 polyps were removed and some diverticulosis was noted. Please see surgeon's note. Patient has a past medical history of hypertension, diabetes, GERD, tendinitis, left bundle branch block, tobacco dependence. Related Data Home Medications Medication Instructions Recorded Confirmed acetaminophen [Tylenol] 650 mg PO TID tab-cap 04/08/13 04/03/20 atorvastatin [Lipitor] 40 mg PO HS tab-cap 04/08/13 04/05/20 cholecalciferol (vitamin D3) 5,000 unit PO DAILY 04/08/13 04/05/20 omeprazole 20 mg PO BID tab-cap 04/08/13 04/05/20 trazodone 50 mg PO HS 04/08/13 04/05/20 vitamin E13-[id number] acid 1 ea PO DAILY 04/08/13 04/05/20 amlodipine 5 mg PO DAILY tab-cap 05/26/17 04/05/20 tizanidine 2 mg PO PRN 05/26/17 04/05/20 dulaglutide 1.5 mg/0.5 mL 1.5 mg SC QWEEK 07/13/19 04/05/20 subcutaneous pen injector ibuprofen 600 mg tablet 600 mg PO TID 07/13/19 04/05/20 metformin 500 mg tablet 500 mg PO DAILY 07/13/19 04/05/20 nortriptyline 10 mg capsule 10 mg PO QHS 07/13/19 04/05/20 prochlorperazine maleate 10 mg 10 mg PO BID PRN 07/13/19 04/05/20 tablet vitamin B complex 1 tab PO DAILY 07/13/19 04/05/20 Allergies Allergy/AdvReac Type Severity Reaction Status Date / Time latex Allergy Severe Skin Rash Unverified 04/05/20 15:21 Penicillins Allergy Severe Skin Rash Unverified 04/05/20 15:21 duloxetine [From Cymbalta] Allergy Intermediate dizziness Verified 04/05/20 15:21 General Stated Complaint: Abd Prob RIGOBERTO: 3 Review of Systems <Trupti Galarza - Last Filed: 04/06/20 08:13> Narrative: Constitutional: Negative for weight loss, alert and oriented, well groomed, normal body habitus, appears comfortable. HEENT: Denies trauma, headaches, blurry vision, nasal discharge, sore throat, trouble swallowing. Chest: Denies chest pain, palpitations, irregular rhythm, hypertension. Respiratory: Denies Shortness of breath, cough, hemoptysis. GI: Denies a nausea, vomiting, constipation. Positive abdominal pain status post colonoscopy. : Denies dysuria, hematuria, flank pain, rectal bleeding. Neuro: Denies dizziness, blurry vision, weakness, syncope, headache or facial numbness. Hematologic: Denies easy bruising, intolerance to heat or cold, hair loss. PFSH <Trupti Galarza - Last Filed: 04/06/20 08:13> Medical History Abnormal uterine bleeding Alopecia Anxiety associated with depression Chest pain Depression Fibromyalgia Gallstones GERD (gastroesophageal reflux disease) History of juvenile rheumatoid arthritis HTN (hypertension) Hyperlipidemia LBBB (left bundle branch block) Morbid obesity Obstructive sleep apnea SLAP lesion of left shoulder (~12/30/19) Tobacco dependence Tobacco use Trochanteric bursitis, left hip Type 2 diabetes mellitus Surgical History Dilation and curettage H/O: hysterectomy History of Surgical Procedure a. D/C x1. Family History Mother Rheumatoid arthritis Father Heart disease Neoplasm lung ca Social History Smoking/Tobacco Use Status: Current every day Tobacco Type: cigarettes Smoking risk assessment performed?: Yes Alcohol Intake: never Drug use: Never Substance use type: does not use Details: Edibles for pain associated with her fibromyalgia. Current gender identity: female Do you feel safe at home: Yes Do you feel safe in your relationship?: Yes Exam <Trupti Galarza - [facility] Filed: 04/06/20 08:13> Narrative Exam Narrative: Constitutional: Alert and oriented x3. Appears stated age. Normal body habitus. Head: Normocephalic, no trauma. Eyes: Pupils PERRLA, Red reflex noted, EOM's intact. Eyelids symmetrical without lesions, discharge, or swelling. ENT: Bilateral TM's WNL, External ear normal to inspection, no mastoid TTP, swelling, or erythema, Nasal turbinates WNL, no nasal discharge. Normal dentition, Posterior pharynx WNL, no exudate. Chest: RRR, Normal S1, S2, distal pulses intact. Resp: Lungs clear to auscultation bilaterally, no wheezes, rales, or rhonchi. Abdominal: Soft, nondistended, hypoactive bowel sounds, left lower quadrant tenderness to palpation. Musculoskeletal: Normal gait, 5/5 strength to all four extremities. Skin: No suspicious rashes or lesions. Capillary refill less than 2 sec. Neurologic: Cranial nerves II-XII intact. Alert and oriented x 3. DTR's intact. Hematologic/Lymphatic: No ecchymosis, no lymphadenopathy. Course <Trupti Galarza - [facility] Filed: 04/06/20 08:13> Vital Signs Vital signs: Vital Signs Temperature 37.0 C 04/05/20 15:14 Pulse 90 04/05/20 15:14 Respiratory Rate 18 04/05/20 15:14 Blood Pressure 141/80 H 04/05/20 15:14 Pulse Oximetry 98 04/05/20 15:14 Temperature 37.0 C 04/05/20 15:14 Pulse 90 04/05/20 15:14 Respiratory Rate 18 04/05/20 15:14 Respiratory Effort Non-Labored 04/05/20 15:19 Blood Pressure 141/80 H 04/05/20 15:14 Blood Pressure Position Sitting 04/05/20 15:14 Pulse Oximetry 98 04/05/20 15:14 Oxygen Delivery Method Room Air 04/05/20 15:14 Oxygen Flow Rate 0 04/05/20 15:14 Pain Level 5 04/05/20 15:14 Sign Out <Trupti Galarza - Last Filed: 04/06/20 08:13> Sign Out Data: Sign Out Comment: Pending labs and CT abd/pelvis Last updated by Trupti Galarza at 04/05/20 16:30
[2020-04-05 15:55] LABS: Abs Immature Grans 0.03 10^3/uL (0.0-0.06); Absolute Basophil Count 0.05 10^3/uL (0.0-0.2); Absolute Lymphocyte Count 3.51 10^3/uL (1.2-3.4); Absolute Monocyte Count 0.63 10^3/uL (0.1-0.8); Absolute Neutrophil Count 3.95 10^3/uL (1.2-6.7); Basophils % 0.6; Eosinophils % 1.2; HCT 36.4 % (36.0-46.0); Immature Grans % 0.4; Lymphocytes % 42.4; MCH 28.6 pg (27.0-33.0); MCV 86.9 fL (80-95); MPV 9.6 fL (8.0-11.0); Monocytes % 7.6; Neutrophils % 47.8; Nucleated RBC 0 %; Platelet Count 351 10^3/uL (130-400); RBC 4.19 10^6/uL (3.93-5.22); RDW 14.1 % (11.7-14.6); RDW-SD 45.2 fL; WBC 8.27 10^3/uL (4.4-10.8)
[2020-04-05 16:14] LABS: ALT 41 U/L (14-59); AST 19 U/L (15-37); Albumin 3.8 g/dL (3.4-5.0); Alkaline Phosphatase 120 U/L (46-116); Anion Gap 9.7 mmol/L (3-11); BUN 16 mg/dL (7-18); Bilirubin, Total 0.3 mg/dL (0.2-1.0); CO2 26.3 mmol/L (21.0-32.0); CREATININE 0.83 mg/dL (0.55-1.02); Calcium 8.9 mg/dL (8.5-10.1); Chloride 101 mmol/L (98-107); Glucose 92 mg/dL (74-106); Lipase 117 U/L (73-393); Potassium 3.4 mmol/L (3.5-5.1); Sodium 137 mmol/L (136-145); Total Protein 7.5 g/dL (6.4-8.2)
[2020-04-05] MEDS: Omnipaque 350 MG/ML 100 ML BTL IJ (16:47)
[2020-04-05] MEDS: Normal Saline - Diluent 50 ML VIAL IV (16:47)
[2020-04-05] MEDS: Normal Saline Flush 10 ML SYR IVP (16:47)
--- NOTE | 2020-04-05 17:03 | DI.VRAD_ITS ---
PROCEDURE INFORMATION: Exam: CT Abdomen And Pelvis With Contrast Exam date and time: 04/05/2020 4:45 PM Age: 54 years old Clinical indication: Abdominal pain; Prior surgery; Surgery type: Colonoscopy less than 2 days ago TECHNIQUE: Imaging protocol: Computed tomography of the abdomen and pelvis with intravenous contrast. COMPARISON: US PELVIS TRANSVAG 06/24/2017 4:57 PM FINDINGS: Liver: Diffuse abnormal low attenuating liver indicating hepatic steatosis. Gallbladder and bile ducts: Multiple gallstones. Pancreas: Normal. Spleen: Normal. Adrenal glands: Normal. No mass. Kidneys and ureters: Normal. Stomach and bowel: Normal. Appendix: Normal appendix. Intraperitoneal space: No ascites, pneumoperitoneum or peritoneal lesion. Vasculature: Mild atherosclerosis of the abdominal aorta, pelvic arteries and mesenteric vessels. Lymph nodes: No mesenteric, retroperitoneal or inguinal adenopathy. Urinary bladder: See Reproductive finding. Reproductive: There has been prior hysterectomy. Normal ovaries. Normal bladder. Bones/joints: No fracture or suspicious osseous lesion. Soft tissues: No mass or hernia. IMPRESSION: 1. No acute disease in the abdomen or pelvis. No evident complication from colonoscopy. 2. Incidental findings not requiring imaging follow-up include fatty liver, cholelithiasis and atherosclerosis. Dictated and Authenticated by: Guille Jimenez MD. Ordering:KATHY Lyles MD
[2020-04-05 17:18] LABS: Magnesium 1.9 mg/dL (1.8-2.4)
[2020-04-05 17:30] LABS: Bilirubin Negative (Negative); Blood Negative (Negative); Clarity Sl Cloudy (Clear); Glucose Negative (Negative); Ketones Negative (Negative); Leukocyte Esterase Negative (Negative); Nitrite Negative (Negative); Urobilinogen 0.2 EU/dL (Up TO 0.2); pH 6.5 (5-8)
== END 2020-04-05 18:08 | disposition home or self-care (01) ==
PROVIDERS: Registered Nurse Emergency; Emergency Provider Nurse Practitioner Acute Care; PCP Family Medicine
DX: R10.32 Left lower quadrant pain (principal); G89.18 Other acute postprocedural pain; Y84.8 Other medical procedures as the cause of abnormal reaction of the patient, or of later complication, without mention of misadventure at the time of the procedure; I10 Essential (primary) hypertension; E11.9 Type 2 diabetes mellitus without complications; Z79.84 Long term (current) use of oral hypoglycemic drugs
CPT/HCPCS: 36415; 80053; 83690; 99285; 74177; 81003; 83735; 85025; 99284; J3490

== ENCOUNTER 2020-10-18 11:57 | Outpatient (REF) | payer OTHER, SELFPAY ==
[2020-10-18 17:23] LABS: HCT 33.7 % (36.0-46.0); HGB 10.5 g/dL (11.2-15.7); MCH 27.6 pg (27.0-33.0); MCHC 31.2 % (32.0-36.0); MCV 88.5 fL (80-95); MPV 10.1 fL (8.0-11.0); Platelet Count 286 10^3/uL (130-400); RBC 3.81 10^6/uL (3.93-5.22); RDW 13.4 % (11.7-14.6); RDW-SD 43.4 fL; WBC 6.23 10^3/uL (4.4-10.8)
[2020-10-18 17:35] LABS: ALT 26 U/L (14-59); AST 12 U/L (15-37); Albumin 3.4 g/dL (3.4-5.0); Alkaline Phosphatase 113 U/L (46-116); Anion Gap 8.5 mmol/L (3-11); BUN 16 mg/dL (7-18); Bilirubin, Total 0.3 mg/dL (0.2-1.0); CO2 27.5 mmol/L (21.0-32.0); CREATININE 0.8 mg/dL (0.55-1.02); Calcium 8.8 mg/dL (8.5-10.1); Chloride 106 mmol/L (98-107); Glucose 97 mg/dL (74-106); Sodium 142 mmol/L (136-145); Total Protein 6.4 g/dL (6.4-8.2)
[2020-10-18 17:52] LABS: C-Reactive Protein < 0.05 mg/dL (0.0-0.3)
[2020-10-19 11:14] LABS: Lyme Ab w Rflx to Lyme Confirm Negative (Negative)
[2020-10-19 13:38] LABS: COVID-19 RT-PCR UVMMC Result Negative (Negative)
[2020-10-20 19:24] LABS: Anaplasma phagocytophilum Negative (Negative); B. miyamotoi PCR Negative (Negative); Babesia divergens/MO-1 Negative (Negative); Babesia duncani Negative (Negative); Babesia microti Negative (Negative); Ehrlichia chaffeensis Negative (Negative); Ehrlichia ewingii/canis Negative (Negative); Ehrlichia muris eauclairensis Negative (Negative)
== END 2020-10-18 11:58 | disposition home or self-care (01) ==
LOC: NCHCN 11:57
PROVIDERS: PCP Family Medicine; Visit Provider Family Medicine
DX: Z20.822 Contact with and (suspected) exposure to COVID-19 (principal); F50.9 Eating disorder, unspecified; R53.83 Other fatigue
CPT/HCPCS: 80053; 85027; 87798; U0003; 86140; 86618

== ENCOUNTER 2020-10-20 12:01 | Outpatient (CLI) | payer OTHER, SELFPAY ==
[2020-10-20 12:47] LABS: Bilirubin Negative (Negative); Blood Negative (Negative); Clarity Clear (Clear); Glucose Negative (Negative); Ketones Negative (Negative); Leukocyte Esterase Negative (Negative); Nitrite Negative (Negative); Specific Gravity >= 1.030 (1.005-1.025); Urobilinogen 0.2 EU/dL (Up TO 0.2)
[2020-10-23 10:51] LABS: Lyme Ab w Rflx to Lyme Confirm Negative (Negative)
[2020-10-23 17:50] LABS: Anaplasma phagocytophilum Negative (Negative); B. miyamotoi PCR Negative (Negative); Babesia divergens/MO-1 Negative (Negative); Babesia duncani Negative (Negative); Babesia microti Negative (Negative); Ehrlichia chaffeensis Negative (Negative); Ehrlichia ewingii/canis Negative (Negative); Ehrlichia muris eauclairensis Negative (Negative)
== END 2020-10-20 12:02 | disposition home or self-care (01) ==
PROVIDERS: PCP Family Medicine; Visit Provider Family Medicine
DX: R50.9 Fever, unspecified (principal); R53.83 Other fatigue; R82.998 Other abnormal findings in urine
CPT/HCPCS: 36415; 83520; 87798; 81003; 86618; 87207

== ENCOUNTER 2021-05-28 18:17 | Outpatient (REF) | payer OTHER, SELFPAY ==
[2021-05-29 16:16] LABS: COVID-19 RT-PCR UVMMC Result Positive (Negative)
== END 2021-05-28 18:18 | disposition home or self-care (01) ==
LOC: NCHCN 18:17
PROVIDERS: PCP Family Medicine; Visit Provider Family Medicine
DX: Z20.822 Contact with and (suspected) exposure to COVID-19 (principal); R52 Pain, unspecified
CPT/HCPCS: U0003

== ENCOUNTER 2021-07-04 17:09 | Outpatient (REF) | payer OTHER, SELFPAY | END 2021-07-04 17:10 | disposition home or self-care (01) | LOC: NCHCN 17:09 | PROVIDERS: PCP Family Medicine; Visit Provider Physician Assistant | DX: L02.91 Cutaneous abscess, unspecified (principal) | CPT/HCPCS: 87070; 87205 ==

== ENCOUNTER 2021-08-16 16:29 | Outpatient (REF) | payer OTHER, SELFPAY ==
[2021-08-16 20:14] LABS: Abs Immature Grans 0.02 10^3/uL (0.0-0.06); Absolute Basophil Count 0.07 10^3/uL (0.0-0.2); Absolute Eosinophil Count 0.13 10^3/uL (0.0-0.7); Absolute Lymphocyte Count 2.68 10^3/uL (1.2-3.4); Absolute Monocyte Count 0.53 10^3/uL (0.1-0.8); Absolute Neutrophil Count 3.86 10^3/uL (1.2-6.7); Eosinophils % 1.8; HCT 37.1 % (36.0-46.0); HGB 11.2 g/dL (11.2-15.7); Immature Grans % 0.3; Lymphocytes % 36.8; MCH 24.5 pg (27.0-33.0); MCHC 30.2 % (32.0-36.0); MCV 81.2 fL (80-95); MPV 10.5 fL (8.0-11.0); Monocytes % 7.3; Neutrophils % 52.8; Nucleated RBC 0 %; Platelet Count 379 10^3/uL (130-400); RBC 4.57 10^6/uL (3.93-5.22); RDW 15.4 % (11.7-14.6); RDW-SD 45.2 fL; WBC 7.29 10^3/uL (4.4-10.8)
[2021-08-16 20:27] LABS: ALT 49 U/L (14-59); AST 27 U/L (15-37); Albumin 4.1 g/dL (3.4-5.0); Alkaline Phosphatase 137 U/L (46-116); Anion Gap 9.6 mmol/L (3-11); BUN 20 mg/dL (7-18); Bilirubin, Total 0.3 mg/dL (0.2-1.0); CO2 26.4 mmol/L (21.0-32.0); CREATININE 0.6 mg/dL (0.55-1.02); Calcium 9.6 mg/dL (8.5-10.1); Chloride 104 mmol/L (98-107); Glucose 91 mg/dL (74-106); Lipase 90 U/L (73-393); Potassium 4.4 mmol/L (3.5-5.1); Sodium 140 mmol/L (136-145); Total Protein 7.6 g/dL (6.4-8.2)
== END 2021-08-16 16:30 | disposition home or self-care (01) ==
LOC: LBN 16:29
PROVIDERS: PCP Family Medicine; Visit Provider Physician Assistant Medical
DX: R10.11 Right upper quadrant pain (principal)
CPT/HCPCS: 80053; 83690; 85025

== ENCOUNTER 2021-08-27 02:11 | Outpatient (CLI) | payer OTHER, SELFPAY ==
[2021-08-27 09:37] LABS: Source Nasal/Nares
[2021-08-27 12:08] LABS: COVID-19 PCR Negative (Negative)
== END 2021-08-27 02:12 | disposition home or self-care (01) ==
LOC: LBO 02:12
PROVIDERS: PCP Family Medicine; Visit Provider Surgery
DX: Z20.822 Contact with and (suspected) exposure to COVID-19 (principal); Z01.818 Encounter for other preprocedural examination
CPT/HCPCS: 87635

== ENCOUNTER 2021-08-29 11:49 | Day surgery (SDC) | payer OTHER, SELFPAY ==
[2021-08-29] VITALS (7 sets, daily range): BP systolic 100–118; BP diastolic 51–73; PULSE 63–80; RESP 15–19; TEMP 36.2–36.7; O2SAT 95–99; BMI 35.2
--- NOTE | 2021-08-29 06:47 | W.PM.OP ---
Date of service: 08/29/21 Time of Service: 13:57 Operative Note Operative Note DATE OF PROCEDURE: 08/29/21 PRE-OP DIAGNOSIS: Cholecystitis POST-OP DIAGNOSIS: same PROCEDURE: Laparoscopic Cholecystectomy SURGEON: Sharona Duran MERCHANDISE STOCKER: Rita Myers Refer to Anesthesia Record ESTIMATED BLOOD LOSS: 25 PATHOLOGY: other (gallbladder) COMPLICATIONS: None Patient was transported to: PACU Patient's condition: stable Implants: None Indications: Mrs Denton is a pleasant 55-year-old female who comes in today because of constant right upper quadrant pain which worsens after eating.? Ultrasound done at urgent care showed gallstones without signs of cholecystitis.? She has been having symptoms for about 2 to 3 weeks.? She has lost about 16 pounds because she does not want to eat as it causes pain.? Discussed laparoscopic cholecystectomy possibly open.? We reviewed the risks and benefits. Risks, benefits, complications were reviewed with the patient in the office.? Complications include but are not limited to bleeding, infection, injury to stomach, small bowel and large bowel, injury to the pancreas, injury to the common bile duct necessitating drainage and referral to tertiary center for repair, bile leak, adverse reactions to the medications, complications of intubation including a sore throat or injury to the uvula, [place], stroke and even .? Questions were entertained and answered to her satisfaction and she wished to proceed.? No guarantees were given or implied. Proceed with laparoscopic cholecystectomy possible open Findings: Normal appearing gallbladder. Stones Procedure Description: After informed consent was obtained the patient was brought to the operating room, placed in a supine position and monitors were applied. SCDs were applied to her lower extremities and she was placed under general anesthesia and intubated without difficulty. Her abdomen was then prepped and draped in a sterile fashion using ChloraPrep. At this point a timeout was done and the patient's name, date of , procedure type, allergies to medications, metal in her body, antibiotic and DVT prophylaxis, and fire risk was assessed. At this point 0.25% Bupivocaine was injected just above the umbilicus into the dermis and subcutaneous tissue. A 10 mm incision was made with an 11 blade. The subcutaneous tissue was dissected with hemostat. The fascia was grasped with cockers and incised with the 11 blade. A 5 mm port was then placed under direct visualization into the abdomen. The abdomen was insuflated and then 3 more ports were placed. A 12 mm port was placed in the subxiphoid area and two 5 mm ports were placed in the right upper quadrant. The liver was inspected and looked normal. The patient's bed was then turned to the left and her head was brought up. The gallbladder was grasped at the body and pushed towards the right shoulder, this allowed me to visualize the neck of the gallbladder. The neck was grasped and pulled towards the right flank and down allowing me to visualize the lymph node. Using a [place] dissector with cautery the lymph node was gently dissected away from the tissues and the fatty tissue was also dissected away until I was able to see the liver bed behind the neck. The cystic duct was identified and it was normal in size. The duct was dissected 360 degrees using the [place] dissector in order for me to visualize its entrance into the gallbladder. Liver was noted behind it. There were no other structures right behind. Critical view was achieved. 3 clips were placed one proximal and 2 distal and the cystic duct was cut. The cystic artery was then identified and dissected 360 degrees. It was located just medial to the cystic duct. It was visualized going into the gallbladder. Once dissected 3 more clips were placed one proximal and 2 distal and the artery was cut. Using the hook dissector the gallbladder was then dissected away from the liver bed and placed into an Endo Catch bag and pulled through the 12 mm port site. The 12 mm port was placed back into the abdomen under direct visualization. The liver bed was inspected no bleeding was noted. The abdomen was then irrigated with a liter of normal saline until the effluent was clear. Once all the fluid was suctioned out, 30 cc of bupivocaine was injected up under the diaphragm. Next the 12 mm and the 2 right upper quadrant ports were removed under direct visualization and no bleeding was noted from the fascia. The abdomen was deflated completely and lastly the umbilical port was removed. The skin was cleaned and the incisions were closed with 4-0 Vicryl. The skin was dried and skin affix was applied over the closed incisions. Needle, instrument and sponge counts were correct at the end of the case. At this point the patient was woken up, extubated and taken back to recovery in stable condition. There were no immediate complications.
--- NOTE | 2021-08-29 06:49 | PDOC.DSDIS_ITS ---
Discharge Plan Disposition Patient Disposition: HOME Condition: Good Discharge Details Reason For Visit: Cholecystitis Attending Provider: Sharona Duran Primary Care Provider: Moise Lala Home Meds and New Rx's Prescriptions: New tramadol 50 mg tablet 50 mg PO Q6H PRNQty: 14 0RF Continued acetaminophen [Tylenol] 325 MG tablet 650 mg PO TID 0RF atorvastatin [Lipitor] 20 MG tablet 40 mg PO HS 0RF trazodone 50 MG tablet 50 mg PO HS 0RF omeprazole 10 MG capsule,delayed release(DR/EC) 20 mg PO BID 0RF cholecalciferol (vitamin D3) 5,000 UNIT capsule 5,000 unit PO DAILY 0RF vitamin L39-[id number] acid 1 EACH tablet 1 ea PO DAILY 0RF tizanidine 2 MG tablet 2 mg PO PRN 0RF amlodipine 5 MG tablet 5 mg PO DAILY 0RF Trulicity 1.5 mg/0.5 mL pen injector 1.5 mg SC QWEEK 0RF ibuprofen 600 mg tablet 600 mg PO TID 0RF prochlorperazine maleate 10 mg tablet 10 mg PO BID PRN0RF metformin 500 mg tablet 500 mg PO DAILY 0RF vitamin B complex [B Complex-Vitamin B12] Tablet 1 tab PO DAILY 0RF cyclosporine [Restasis] 0.05 % dropperette 1 drp ophthalmic (eye) Q12H 0RF Label Comments: Pt states she is still waiting for this one to be approved.HE sertraline 100 mg tablet 100 mg PO DAILY 0RF bepotastine besilate [Bepreve] 1.5 % drops 1 drp ophthalmic (eye) BID 0RF hydroxyzine HCl 25 mg tablet 25 mg PO TID PRN0RF losartan 25 mg tablet 25 mg PO DAILY 0RF Discharge Instructions Additional Instructions: Activity at Home after surgery: 1. Make sure you walk outside at least 4 times per day 2. You should be able to climb a flight of stairs 3. No driving while in pain or taking pain medications 4. No strenuous activity or heavy lifting for 2 weeks (laparoscopic surgery) Diet, Nutrition, & wound healin. Avoid alcohol until after you are recovered from your surgery 2. Make sure to eat plenty of lean protein (meat, fish, eggs, cottage cheese, beans) 3. Eat a variety of fruits and vegetables. Eat plenty of high fiber foods to avoid constipation. 4. Drink plenty of liquids to stay hydrated and avoid constipation Pain Medications: 1. Tylenol 650mg every 6 hours as needed and Ibuprofen 600 mg every 6 hours as needed. You may alternate between the 2 medications every 3 hours 2. If a narcotic has been prescribed take as directed only for breakthrough pain For Constipation: 1. Take Milk of Magnesia or MiraLax as needed for constipation Other: 1. You may shower daily. Do not scrub the incisions 2. Do not soak the incisions for 1 week 3. You may alternate ice and heat as needed for pain and swelling Wound Care: 1. Keep the incisions clean and dry Please call our office if you develop: 1. Fevers >101.5 2. Nausea or Vomiting 3. Worsening pain 4. Redness and thick discharge from the wounds If after hours please call the Hospital at and ask to speak to the on-call surgeon Referrals: Sharona Duran MD [ [facility] STAFF PHYSICIAN] - Activity:: as above Remove Dressings/Wound Care:: Do Not Remove Shower/Bathe:: 24 hours Diet:: low fat Discharge Orders Discharge Orders: Discharge Order (Routine); Ordered 08/29/21 Ordered By: Sharona Duran
--- NOTE | 2021-08-29 10:20 | W.ANESPRE ---
General Info Date of Service Date Performed: 08/29/21 Height: 5 ft 5 in Weight: 95.878 kg Body Mass Index (BMI): 35.2 Surgical Procedure: Operation Date: 08/29/21 13:40 Proposed Procedure Side Surgeon p Cholecystectomy Laparoscopic Sharona Duran MD Meds Allergies and Home Medications Allergies Allergy/AdvReac Type Severity Reaction Status Date / Time latex Allergy Severe Skin Rash Unverified 08/29/21 12:25 Penicillins Allergy Severe Skin Rash Unverified 08/29/21 12:25 duloxetine [From Cymbalta] Allergy Intermediate dizziness Verified 08/29/21 12:25 Home Medication Medication Instructions Recorded acetaminophen 325 mg tablet 650 mg PO TID tab-cap 04/08/13 (Tylenol) atorvastatin 20 mg tablet (Lipitor) 40 mg PO HS tab-cap 04/08/13 cholecalciferol (vitamin D3) 125 5,000 unit PO DAILY 04/08/13 mcg (5,000 unit) capsule omeprazole 10 mg capsule,delayed 20 mg PO BID tab-cap 04/08/13 release trazodone 50 mg tablet 50 mg PO HS 04/08/13 vitamin B12 500 mcg-folic acid 400 1 ea PO DAILY 04/08/13 mcg tablet amlodipine 5 mg tablet 5 mg PO DAILY tab-cap 05/26/17 tizanidine 2 mg tablet 2 mg PO PRN 05/26/17 dulaglutide 1.5 mg/0.5 mL 1.5 mg SC QWEEK 07/13/19 subcutaneous pen injector (Trulicity) ibuprofen 600 mg tablet 600 mg PO TID 07/13/19 metformin 500 mg tablet 500 mg PO DAILY 07/13/19 prochlorperazine maleate 10 mg 10 mg PO BID PRN 07/13/19 tablet vitamin B complex (B 1 tab PO DAILY 07/13/19 Complex-Vitamin B12) bepotastine besilate 1.5 % eye 1 drp OPHTHALMIC (EYE) BID 08/23/21 drops (Bepreve) cyclosporine 0.05 % eye drops in a 1 drp OPHTHALMIC (EYE) Q12H 08/23/21 dropperette (Restasis) hydroxyzine HCl 25 mg tablet 25 mg PO TID PRN 08/23/21 losartan 25 mg tablet 25 mg PO DAILY 08/23/21 sertraline 100 mg tablet 100 mg PO DAILY 08/23/21 tramadol 50 mg tablet 50 mg PO Q6H PRN #14 tab 08/29/21 Current Visit Medications: Current Medications Generic Name Dose Route Start Last Admin Trade Name Jacqui PRN Reason Stop Dose Admin Acetaminophen 1,000 mg 08/29/21 06:00 Acetaminophen 500 Mg Tab PO 08/29/21 23:59 PREOP ELIANE Celecoxib 200 mg 08/29/21 06:00 Celecoxib 200 Mg Cap PO 08/29/21 23:59 PREOP ELIANE Gabapentin 600 mg 08/29/21 06:00 Gabapentin 300 Mg Cap PO 08/29/21 23:59 PREOP ELIANE Ringer's Solution 1,000 mls @ 80 mls/hr 08/29/21 06:00 IV 09/15/21 23:59 INFUSION ELIANE Cefazolin Sodium/Dextrose 2 gm in 50 mls @ 100 mls/hr 08/29/21 06:00 Ancef Duplex IVPB 08/29/21 23:59 PREOP ELIANE Ondansetron HCl 4 mg/ Sodium 52 mls @ 200 mls/hr 08/29/21 06:51 Chloride IVPB Q6H PRN PRN IV Miscellaneous Supplies 1 each 08/29/21 06:00 Iv Access IV 09/15/21 23:59 DIRECTED ELIANE Oxycodone HCl 5 mg 08/29/21 06:51 Oxycodone 5 Mg Tab PO Q3H PRN PRN Pain Sodium Chloride 0 ml 08/29/21 06:00 Normal Saline Flush 10 Ml Syr IV 09/15/21 23:59 PRN PRN Sodium Chloride 0 ml 08/29/21 06:00 Normal Saline 10 Ml Vial IJ 09/15/21 23:59 DIRECTED PRN Sterile Water 0 ml 08/29/21 06:00 Water,Injection,Sterile 10 Ml Vial IJ 09/15/21 23:59 DIRECTED PRN PFSH Active Problems Active Problems: Problem Status Onset Code LBBB (left bundle branch block) I44.7 Abdominal pain R10.9 Gall stones K80.20 Diarrhea R19.7 History of colon polyps Z86.010 Cholecystitis with cholelithiasis K80.10 Medical History Medical History Abnormal uterine bleeding Alopecia Anxiety associated with depression Arthritis of left acromioclavicular joint Bursitis of left shoulder Chest pain Per pt. stated this was a couple of years ago and had it worked up-negative work up Conjunctivitis Corneal ulcer COVID-19 virus infection 05/2021-symptomatic Dental infection Depression Fibromyalgia Gallstones GERD (gastroesophageal reflux disease) Grief at loss of child History of juvenile rheumatoid arthritis HTN (hypertension) Hyperlipidemia Hyperplastic colon polyp Impingement syndrome of left shoulder Insomnia Menometrorrhagia (04/08/13) Morbid obesity Obstructive sleep apnea SLAP lesion of left shoulder (~12/30/19) Tendinitis of long head of biceps brachii of left shoulder Tobacco dependence Trochanteric bursitis, left hip Tubular adenoma of colon Type 2 diabetes mellitus Surgical History Surgical History Dilation and curettage H/O: hysterectomy History of Surgical Procedure a. D/C x1. Tobacco Smoking/Tobacco Use Status: Current every day Tobacco Type: cigarettes Smoking cigarettes per day: 9 Alcohol Alcohol Intake: never Substance Use Substance use: Occasionally Substance use type: other Details: Edibles for pain associated with her fibromyalgia. Vital Signs and Lab Results Lab Results Blood Type / Crossmatch: No Data to Display Complete Blood Count: White Blood Count 7.29 10^3/uL (4.4-10.8) 08/16/21 12:55 08/16/21 Red Blood Count 4.57 10^6/uL (3.93-5.22) 08/16/21 12:55 08/16/21 Hemoglobin 11.2 g/dL (11.2-15.7) 08/16/21 12:55 08/16/21 Hematocrit 37.1 % (36.0-46.0) 08/16/21 12:55 08/16/21 Platelet Count 379 10^3/uL (130-400) 08/16/21 12:55 08/16/21 Complete Metabolic Panel: Sodium Level 140 mmol/L (136-145) 08/16/21 12:55 08/16/21 Potassium Level 4.4 mmol/L (3.5-5.1) 08/16/21 12:55 08/16/21 Chloride Level 104 mmol/L (98-107) 08/16/21 12:55 08/16/21 Carbon Dioxide Level 26.4 mmol/L (21.0-32.0) 08/16/21 12:55 08/16/21 Blood Urea Nitrogen 20 mg/dL (7-18) H 08/16/21 12:55 08/16/21 Creatinine 0.6 mg/dL (0.55-1.02) 08/16/21 12:55 08/16/21 Estimated GFR/1.73 m2 >= 60.00 (mL/min/1.73m2) 08/16/21 12:55 08/16/21 Calcium Level 9.6 mg/dL (8.5-10.1) 08/16/21 12:55 08/16/21 Albumin 4.1 g/dL (3.4-5.0) 08/16/21 12:55 08/16/21 Glucose Level 91 mg/dL (74-106) 08/16/21 12:55 08/16/21 Liver Function Panel: Alanine Aminotransferase (ALT/SGPT) 49 U/L (14-59) 08/16/21 12:55 08/16/21 Aspartate Amino Transf (AST/SGOT) 27 U/L (15-37) 08/16/21 12:55 08/16/21 Coagulation Panel: No Data to Display Cardiac Panel: No Data to Display Arterial Blood Gas: No Data to Display Venous Blood Gas: No Data to Display Pancreas Panel: Lipase 90 U/L (73-393) 08/16/21 12:55 08/16/21 Thyroid Panel: No Data to Display Infectious Disease: Coronavirus (COVID-19)(PCR) Negative (Negative) 08/27/21 08:53 08/27/21 Coronavirus 2019 Source Nasal/Nares 08/27/21 08:53 08/27/21 Blood Cultures: No Data to Display Toxicology Panel: No Data to Display Panel: No Data to Display Imaging and Studies Imaging and Studies Study information below may be from another EMR and interpreted by another provider. Please see original notes in EMR for more complete details. Stress Test Summary: 2013: negative for ischemia, defect in the past likely related to LBBB. Anesthesia Assessment and Plan Anesthesia History Personal History: No History of Anesthesia Complications Family History: No Family History of Anesthesia Complications Exercise Tolerance Exercise Tolerance: Metabolic Equivalents>4 Pertinent Negatives Pertinent Negatives: No Major Cardiovascular Symptoms or Complaints and No Major Pulmonary Symptoms or Complaints Cardiac & Pulmonary Exam Cardiac Exam: Normal S1/S2 Heart Sounds Pulmonary Exam: Clear Bilateral Breath Sounds Implantable Cardiac Device Does patient have a Pacemaker or an ICD?: No Airway Exam Known Difficult Airway: No Mallampati Class: 2 Mouth Opening: Normal (> 3cm) Thyromental Distance: Greater than 3 cm Neck Range of Motion: Full ROM Neck Circumference: Normal Teeth Condition: Normal Dentition and Loose or Chipped (Bottom Right) ASA Classification ASA Score: ASA 2 Emergency Case?: No NPO Status NPO Status: NPO Clears >2 hours, Solids >8 hours Status Status: Not Per Patient Anesthesia Plan Resuscitation Status: Full Code Anesthesia Technique: General Anesthesia Airway Planned: Endotracheal Tube Monitors Used: Standard Monitors Preoperative Comments:: 55 yo female for lap leighton r/t cholecystitis/cholelithiasis. Sig PMHx: GERD (omeprazole), HTN (amlodipine/losartan), LBBB, DM2 (dulaglutide/metformin), BERTA, anxiety/fibromyalgia.
[2021-08-29] MEDS: Gabapentin 300 MG CAP 600 MG PO (12:38)
[2021-08-29] MEDS: Celecoxib 200 MG CAP PO (12:38)
[2021-08-29] MEDS: Acetaminophen 500 MG TAB 1000 MG PO (12:38)
[2021-08-29] MEDS: Lactated Ringers 1,000 ML 80 ML IV (12:50)
[2021-08-29] MEDS: ceFAZolin 2 GM/50 ML BAG IVPB (13:49)
--- NOTE | 2021-08-29 14:29 | GB_PTH ---
PATIENT: Nikia Denton LOC: [facility] U#:[id number] AGE/SX: 55/F ROOM: RE08/29/[address]: Sharona Duran MD : [id number] BED: DIS: 08/29/2021 SPEC #: [id number] RECD: 08/29/21 17:01 STATUS: IVETTE REEliu #: [id number] JESS: 08/29/21 14:[address]: Sharona Duran DEPT: Surgical Specimen RECD BY: Estella Galarza ENTERED: 08/29/21 17:01 SP TYPE: GB OTHR DR: Moise Lala Tissues: 1 - GALLBLADDER Procedures: GROSS AND MICRO LEVEL 3 Comments: [id number]
[2021-08-29] MEDS: Bupivacaine 0.25% Pres-Free 30 ML VIAL (14:34)
[2021-08-29] MEDS: Lidocaine 1% Multi-Dose 50 ML VIAL (14:35)
--- NOTE | 2021-08-29 15:26 | W.ANESPOSTOP ---
Postoperative Evaluation Date, Time and Location Date Performed: 08/29/21 Time Performed: 15:26 Patient Location: PACU Vital Signs Most Recent Imported Vital Signs: Most Recent Vital Signs Temp Pulse Resp BP Pulse Ox 36.3 C L 63 16 109/64 97 08/29/21 15:15 08/29/21 15:15 08/29/21 15:15 08/29/21 15:15 08/29/21 15:15 Pain Score Most Recent Pain Score: Most Recent Pain Score Pain Level 0 08/29/21 15:15 Assessment Mental Status: Awake (Alert & Oriented to Patient Baseline) Airway and Respiratory Function: Patent airway with normal (patient baseline) respiratory exam Cardiovascular Function: Hemodynamically Stable Hydration Status: Adequately Hydrated Nausea & Vomiting: No Nausea or Vomiting Pain: Pt. Denies Any Pain Peripheral Nerve Block: Patient did not receive a nerve block
== END 2021-08-29 17:00 | disposition home or self-care (01) ==
LOC: SUR 11:49
PROVIDERS: PCP Family Medicine; Visit Provider Surgery
PROC: 0FT44ZZ Resection of Gallbladder, Percutaneous Endoscopic Approach (ICD-10-PCS; CPT 47562; principal; 2021-08-29 13:30)
DX: K80.10 Calculus of gallbladder with chronic cholecystitis without obstruction (principal); I44.7 Left bundle-branch block, unspecified; F41.8 Other specified anxiety disorders; M79.7 Fibromyalgia; K21.9 Gastro-esophageal reflux disease without esophagitis; I10 Essential (primary) hypertension; G47.33 Obstructive sleep apnea (adult) (pediatric)
CPT/HCPCS: 47562; 88304; J0690; J1100; J1885; J2001; J2250; J2405

== ENCOUNTER 2021-09-11 13:23 | Outpatient (CLI) | payer OTHER, SELFPAY ==
[2021-09-11 11:21] LABS: Abs Immature Grans 0.04 10^3/uL (0.0-0.06); Absolute Basophil Count 0.09 10^3/uL (0.0-0.2); Absolute Eosinophil Count 0.23 10^3/uL (0.0-0.7); Absolute Lymphocyte Count 2.39 10^3/uL (1.2-3.4); Absolute Monocyte Count 0.83 10^3/uL (0.1-0.8); Absolute Neutrophil Count 5.67 10^3/uL (1.2-6.7); Eosinophils % 2.5; HCT 37.3 % (36.0-46.0); HGB 11.4 g/dL (11.2-15.7); Immature Grans % 0.4; Lymphocytes % 25.8; MCH 24.5 pg (27.0-33.0); MCHC 30.6 % (32.0-36.0); MCV 80.2 fL (80-95); MPV 8.8 fL (8.0-11.0); Neutrophils % 61.3; Platelet Count 438 10^3/uL (130-400); RBC 4.65 10^6/uL (3.93-5.22); RDW-SD 46.2 fL; WBC 9.25 10^3/uL (4.4-10.8)
[2021-09-11 11:34] LABS: Hemoglobin A1C 6.8 % (<5.7)
[2021-09-11 12:12] LABS: ALT 50 U/L (14-59); AST 29 U/L (15-37); Alkaline Phosphatase 141 U/L (46-116); Anion Gap 11.2 mmol/L (3-11); BUN 18 mg/dL (7-18); Bilirubin, Total 0.5 mg/dL (0.2-1.0); CO2 25.8 mmol/L (21.0-32.0); CREATININE 0.8 mg/dL (0.55-1.02); Calcium 9.8 mg/dL (8.5-10.1); Chloride 104 mmol/L (98-107); Glucose 104 mg/dL (74-106); Potassium 4.2 mmol/L (3.5-5.1); Sodium 141 mmol/L (136-145); Total Protein 7.9 g/dL (6.4-8.2)
== END 2021-09-11 13:24 | disposition home or self-care (01) ==
LOC: LBO 13:25
PROVIDERS: PCP Family Medicine; Visit Provider Surgery
DX: R19.7 Diarrhea, unspecified (principal); R73.9 Hyperglycemia, unspecified
CPT/HCPCS: 36415; 80053; 83036; 85025

== ENCOUNTER 2021-10-02 16:43 | Outpatient (REF) | payer OTHER, SELFPAY ==
[2021-10-02 17:53] LABS: Abs Immature Grans 0.04 10^3/uL (0.0-0.06); Absolute Basophil Count 0.08 10^3/uL (0.0-0.2); Absolute Eosinophil Count 0.16 10^3/uL (0.0-0.7); Absolute Monocyte Count 0.83 10^3/uL (0.1-0.8); Absolute Neutrophil Count 8.04 10^3/uL (1.2-6.7); Basophils % 0.7; Eosinophils % 1.4; HCT 34.5 % (36.0-46.0); HGB 10.3 g/dL (11.2-15.7); Immature Grans % 0.3; Lymphocytes % 21.5; MCHC 29.9 % (32.0-36.0); MCV 80 fL (80-95); MPV 10.2 fL (8.0-11.0); Monocytes % 7.1; Platelet Count 329 10^3/uL (130-400); RBC 4.29 10^6/uL (3.93-5.22); RDW 15.9 % (11.7-14.6); WBC 11.65 10^3/uL (4.4-10.8)
== END 2021-10-02 16:44 | disposition home or self-care (01) ==
LOC: NCHCN 16:43
PROVIDERS: PCP Family Medicine; Visit Provider Family Medicine
DX: R68.83 Chills (without fever) (principal); R19.7 Diarrhea, unspecified
CPT/HCPCS: 85025

== ENCOUNTER 2021-10-04 18:35 | Outpatient (REF) | payer OTHER, SELFPAY ==
[2021-10-04 15:26] LABS: C Diff PCR Negative (Negative)
== END 2021-10-04 18:36 | disposition home or self-care (01) ==
LOC: NCHCN 18:35
PROVIDERS: PCP Family Medicine; Visit Provider Family Medicine
DX: R19.7 Diarrhea, unspecified (principal)
CPT/HCPCS: 87493

== ENCOUNTER → 2021-10-18 01:26 | Outpatient (CLI) | payer OTHER, SELFPAY ==
--- NOTE | 2021-10-18 12:15 | DI.MRI_ITS ---
Exam(s) MR ABDOMEN WO/W EXAM: MR ABDOMEN WO/W CLINICAL HISTORY: ABD PAIN, R10.9, CHILLS, R68.83, DIARRHEA, R19.7, S/P LAP JERROD 08/29/21 TECHNIQUE: Multiplanar multisequence MRI was performed with both pre and post contrast infused seque nces. Contrast injected sequences were performed following IV injection of 20 cc of Dotarem. COMPARISON: CT scan 04/05/2020 was reviewed. FINDINGS: VISUALIZED LUNG BASES: No pleural effusions evident. No obvious consolidation visualized lung bases. There is no ascites evident. LIVER: There are no focal hepatic lesions nor dilatation of ducts. No evidence of intrahepatic absce ss nor subcapsular collection, given the recent history here. There is no abnormal collection in the gallbladder fossa. BILIARY: The gallbladder surgically absent. There is no abnormal collection in the gallbladder fossa . The CBD is not dilated. MRCP: Source images reveal small foci of signal dropout in the lower cystic duct remnant/CBD, both of which are not significantly dilated. These may represent small calculi. PANCREAS: There is no evidence of pancreatic mass nor dilatation of the pancreatic duct.Pancreatic uri dy is somewhat atrophic SPLEEN: Spleen is not enlarged and there are no intrasplenic lesions. ADRENALS: There are no significant adrenal masses. KIDNEYS: No solid renal masses. No hydronephrosis.No cysts evident. ABDOMINAL AORTA: Not enlarged and there is no significant para-aortic adenopathy. ANTERIOR ABDOMINAL WALL/GI: There is no evidence of significant anterior abdominal wall hernia in the field of view of this study.No abnormal subcutaneous collection. GI: There no evidence of bowel obstruction OSSEOUS: There are no lytic osseous lesions in the field of view of this study. IMPRESSION: 1. The gallbladder is surgically absent. There is no abnormal collection in the gallbladder fossa, h epatic abscess, subcapsular hepatic collection, nor obvious bile leak. However, there appear to be a few small hypointense signal foci in the nondilated CBD which are possibly retained calculi. 2. No abnormal mesenteric findings. No lymphadenopathy. 3. No abnormal subcutaneous collections no obvious consolidation in the lung bases nor pleural effusi ons. DATA REPOSITORY:
[2021-10-18] MEDS: Gadoterate meglumine 20 ML VIAL IVP (12:47)
== END ==
PROVIDERS: PCP Family Medicine; Visit Provider Family Medicine
DX: R10.9 Unspecified abdominal pain (principal); R19.7 Diarrhea, unspecified; R68.83 Chills (without fever); Z90.49 Acquired absence of other specified parts of digestive tract; R53.81 Other malaise
CPT/HCPCS: 74183

== ENCOUNTER 2021-10-30 15:03 | Outpatient (REF) | payer OTHER, SELFPAY ==
[2021-10-30 17:25] LABS: ALT 32 U/L (14-59); AST 19 U/L (15-37); Albumin 3.6 g/dL (3.4-5.0); Alkaline Phosphatase 116 U/L (46-116); Bilirubin, Direct 0.1 mg/dL (0.0-0.2); Bilirubin, Total 0.3 mg/dL (0.2-1.0); Total Protein 7.3 g/dL (6.4-8.2)
== END 2021-10-30 15:04 | disposition home or self-care (01) ==
LOC: NCHCN 15:03
PROVIDERS: PCP Family Medicine; Visit Provider Family Medicine
DX: R10.9 Unspecified abdominal pain (principal); K80.50 Calculus of bile duct without cholangitis or cholecystitis without obstruction
CPT/HCPCS: 80076

== ENCOUNTER 2021-11-12 11:57 | Emergency (ER) | payer OTHER, SELFPAY ==
[2021-11-12 11:59] VITALS: BP 119/69; PULSE 81; TEMP 36.4; O2SAT 99
--- NOTE | 2021-11-12 12:42 | ED.GENADUL_ITS ---
Discharge Plan Disposition Patient Disposition: HOME Condition: Improving Discharge Details Clinical Impression: Abdominal pain Primary Care Provider: Moise Lala ED Provider: Fantasma Corea Home Meds and New Rx's Prescriptions: New ondansetron HCl 4 mg tablet 4 mg PO Q8H PRN3 Days Qty: 9 0RF oxycodone-acetaminophen [Percocet] 5-325 mg tablet 1 tab PO Q8H PRNQty: 8 0RF Continued cholestyramine-aspartame [Cholestyramine Light] 4 gram powder in packet 1 packet PO TID Qty: 90 0RF Rx Instructions: administer w/meal; avoid other meds within 1hr before or 4-6hr after dose sucralfate [Carafate] 1 gram tablet 1 g PO TID Qty: 56 0RF Rx Instructions: 30 minutes before meals. Take Carafate first and then Cholestyramine 5 to 10 minutes later acetaminophen [Tylenol] 325 MG tablet 650 mg PO TID atorvastatin [Lipitor] 20 MG tablet 40 mg PO HS trazodone 50 MG tablet 50 mg PO HS omeprazole 10 MG capsule,delayed release(DR/EC) 20 mg PO BID cholecalciferol (vitamin D3) 5,000 UNIT capsule 5,000 unit PO DAILY vitamin [id number] acid 1 EACH tablet 1 ea PO DAILY tizanidine 2 MG tablet 2 mg PO PRN amlodipine 5 MG tablet 5 mg PO DAILY Trulicity 1.5 mg/0.5 mL pen injector 1.5 mg SC QWEEK ibuprofen 600 mg tablet 600 mg PO TID prochlorperazine maleate 10 mg tablet 10 mg PO BID PRN metformin 500 mg tablet 500 mg PO DAILY vitamin B complex [B Complex-Vitamin B12] Tablet 1 tab PO DAILY cyclosporine [Restasis] 0.05 % dropperette 1 drp ophthalmic (eye) Q12H Label Comments: Pt states she is still waiting for this one to be approved.HE sertraline 100 mg tablet 100 mg PO DAILY bepotastine besilate [Bepreve] 1.5 % drops 1 drp ophthalmic (eye) BID hydroxyzine HCl 25 mg tablet 25 mg PO TID PRN losartan 25 mg tablet 25 mg PO DAILY Discharge Instructions Instructions: Abdominal Pain (ED) Additional Instructions: Work-up here in the ER does not reveal any obvious emergent process. I spoke both with our surgical team here and at [facility]. Zofran and Percocet as directed, remember that Percocet may cause both drowsiness and constipation. I recommend a bland low-fat diet advancing as tolerated. Please watch for new or worsening symptoms and return to the ER for any concerns. I recommend contacting your primary care provider tomorrow to discuss your ER visit, ongoing symptoms, potential need for further outpatient work-up including GI referral. Medical Decision Making This is a 55-year-old female, past medical history that includes diabetes, GERD, lap leighton August 29, and subsequent MRCP roughly 3 weeks later here at our facility, then had an ERCP just last Friday at [facility], presenting to the ER for ongoing right upper quadrant pain, nausea, vomiting, diarrhea, pain that time is so severe it takes her breath away. She denies any chest pain, regular shortness of breath, cough, pain or swelling her legs. Clinically she appears well, nontoxic, afebrile, abdomen is tender in the right upper quadrant but c ertainly not acute or surgical in nature. Concern for pancreatitis status post ERCP, plan is to obtain IV access, give IV fluid, Zofran, morphine and obtain CBC, CMP, lipase and urinalysis. Patient reports significant improvement with IV medications. Laboratory values do not reveal any evidence of leukocytosis, her LFTs reveal a total bili of 0.2 AST 23 ALT 30, alk phosphatase 126, lipase 97. Urinalysis unremarkable. Case discussed with our surgical staff, Dr. Duran. We have already performed an MRCP, with her recent ERCP, recommends contacting [facility]. I then spoke with Dr. Diallo, surgery, at [facility] at approximately 1500. He is relieved that the laboratory values are unremarkable. Does not believe that admission or transfer is indicated. Does state that obtaining CT with contrast is reasonable given her recent procedure. Discussed the laboratory values and my discussion with the surgical teams with both patient and her mother. She is requesting another dose of pain medication and she is agreeable to CT imaging CT imaging is unremarkable for obvious emergent process. Discussed findings with the patient. Plan is to treat with short-term analgesia and Zofran, she will continue her bland diet and advance as tolerated, and she will contact her primary care provider tomorrow. We discussed that further evaluation to her PCP, potential outpatient endoscopy, colonoscopy, referral to GI, etc. may all be indicated for further evaluation. Standard discharge and return precautions were provided. Patient understands, is agreeable to this plan, and has no additional questions or concerns upon discharge. This documentation was generated using [employer] system, please disregard any oddities of phrase or misspellings. Medical Records Medical records reviewed: Yes I reviewed the patient's medical records. Imaging Data Radiologic Study: Attestation: I personally reviewed and interpreted this imaging study as follows: Imaging: CT Scan Radiologist's impression: Exam(s) CT ABDOMEN PELVIS W EXAM: CT ABDOMEN PELVIS W CLINICAL HISTORY: RUQ pain s/p ercp. TECHNIQUE: Imaging Protocol: Axial computed tomography images with coronal and sagittal reformatted images were created and reviewed CONTRAST MATERIAL: Intravenous: Omnipaque 100cc Oral: None COMPARISON: CT CT ABDOMEN PELVIS W from 04/05/2020 MR MR ABDOMEN WO/W from 10/18/2021 FINDINGS: VISUALIZED LUNG BASES: Mild increased markings both lung bases. No pleural effusions.. ABDOMEN: There is no ascites. LIVER: Liver is hypodense implying steatosis. There are no discrete focal hepatic lesions but there is some air evident within nondilated intrahepatic ducts in this patient had recent ERCP. GALLBLADDER/BILIARY: Gallbladder surgically absent. CBD is not dilated. Air is seen in the nondilated CBD. Also bead like air bubbles adjacent to this and ending at the level of surgical clip, most probably air with in the cystic duct. No abnormal fluid collection to suggest bile leak nor abscess. PANCREAS: No evidence of pancreatic mass nor dilatation of the pancreatic duct. SPLEEN: Spleen is not enlarged. No obvious intrasplenic lesions. Splenic and portal veins are patent. ADRENALS: There are no significant adrenal masses. KIDNEYS:No cysts evident. No solid renal masses. No calculi nor hydronephrosis.. ABDOMINAL AORTA: Abdominal aorta is not enlarged. LYMPH NODES:There is no retroperitoneal nor paraaortic adenopathy. ABDOMINAL WALL: No evidence of significant anterior abdominal wall nor inguinal hernia. GI: There is no evidence of bowel obstruction, free air, nor abscess. PELVIS: GI: No evidence of appendicitis.No evidence of sigmoid diverticulitis. LYMPH NODES: There is no intrapelvic nor inguinal adenopathy. REPRODUCTIVE: The uterus is surgically absent. There are no abnormal adnexal masses. URINARY BLADDER: No calculi nor obvious masses evident OSSEOUS: No significant osseous lesions. IMPRESSION: 1. Compared to the prior study of 04/05/2020 there has been interval cholecystectomy. No evidence of obvious pancreatitis in this patient had recent ERCP 2. There is air in the nondilated biliary tree, including the cystic duct. There is no abnormal fluid collection related biliary tree a waqas hepatis. 3. Hepatic steatosis noted 4. Uterus is surgically absent. No abnormal adnexal findings. No free fluid. Lab Data Lab results reviewed: Yes I reviewed the patient's lab results. Labs: Laboratory Tests Range/Units 11/12/21 11/12/21 11/12/21 12:45 12:45 13:50 WBC (4.4-10.8) 10^3/uL 8.02 RBC (3.93-5.22) 10^6/uL 4.39 Hgb (11.2-15.7) g/dL 10.4 L Hct (36.0-46.0) % 34.2 L MCV (80-95) fL 78 L MCH (27.0-33.0) pg 23.7 L MCHC (32.0-36.0) % 30.4 L RDW (11.7-14.6) % 16.7 H Plt Count (130-400) 10^3/uL 350 MPV (8.0-11.0) fL 9.6 Immature Gran % 0.4 Neutrophils % 59.7 Lymphocytes % 30.0 Monocytes % 7.1 Eosinophils % 1.9 Basophils % 0.9 Nucleated RBC % (0.0-0.3) % 0.0 Absolute Neutrophils (1.2-6.7) 10^3/uL 4.79 Absolute Lymphocytes (1.2-3.4) 10^3/uL 2.41 Absolute Monocytes (0.1-0.8) 10^3/uL 0.57 Absolute Eosinophils (0.0-0.7) 10^3/uL 0.15 Absolute Basophils (0.0-0.2) 10^3/uL 0.07 Sodium (136-145) mmol/L 139 Potassium (3.5-5.1) mmol/L 4.4 Chloride (98-107) mmol/L 101 Carbon Dioxide (21.0-32.0) mmol/L 26.6 Anion Gap (3-11) mmol/L 11.4 H BUN (7-18) mg/dL 16 Creatinine (0.55-1.02) mg/dL 0.7 Estimated GFR/1.73 m2 (mL/min/1.73m2) >= 60.00 Glucose (74-106) mg/dL 96 Calcium (8.5-10.1) mg/dL 9.5 Total Bilirubin (0.2-1.0) mg/dL 0.2 AST (15-37) U/L 23 ALT (14-59) U/L 30 Alkaline Phosphatase (46-116) U/L 126 H Total Protein (6.4-8.2) g/dL 7.8 Albumin (3.4-5.0) g/dL 3.5 Lipase (73-393) U/L 97 Urine Color (Yellow) Yellow Urine Clarity (Clear) Clear Urine pH (5-8) 7.0 Ur Specific [place] (1.005-1.025) 1.015 Urine Protein (Negative) mg/dL Negative Urine Ketones (Negative) mg/dL Negative Urine Blood (Negative) Negative Urine Nitrite (Negative) Negative Urine Bilirubin (Negative) Negative Urine Urobilinogen (Up TO 0.2) EU/dL 0.2 Ur Leukocyte Esterase (Negative) Negative Urine Glucose (Negative) mg/dL Negative HPI General Mode of arrival: ambulatory . Date/Time Provider Initiated Documentation: 11/12/21 12:08 . Limitations to Documentation: no limitations . Information obtained by: patient . History of Present Illness 55 year old F presents to the emergency department with the chief complaint of Abd pain, described as moderate, with intensity rated at 7. Quality is described as stabbing and aching, and is localized to the abdomen and right. Patient abdomen (epigastric). Patient started experiencing this month(s) (3-4) and it has been constant. No relieving factors improve symptom(s), No exacerbating factors reported . Patient notes fever/chills (99.4), loss of appetite, nausea/vomiting and other (Diarrhea). Patient did receive the following treatments prior to arrival, none Related Data Home Medications Medication Instructions Recorded Confirmed acetaminophen 325 mg tablet 650 mg PO TID 04/08/13 09/11/21 (Tylenol) atorvastatin 20 mg tablet (Lipitor) 40 mg PO HS 04/08/13 09/11/21 cholecalciferol (vitamin D3) 125 5,000 unit PO DAILY 04/08/13 09/11/21 mcg (5,000 unit) capsule omeprazole 10 mg capsule,delayed 20 mg PO BID 04/08/13 09/11/21 release trazodone 50 mg tablet 50 mg PO HS 04/08/13 09/11/21 vitamin B12 500 mcg-folic acid 400 1 ea PO DAILY 04/08/13 09/11/21 mcg tablet amlodipine 5 mg tablet 5 mg PO DAILY 05/26/17 09/11/21 tizanidine 2 mg tablet 2 mg PO PRN 05/26/17 09/11/21 dulaglutide 1.5 mg/0.5 mL 1.5 mg subcut QWEEK 07/13/19 09/11/21 subcutaneous pen injector (Trulicity) ibuprofen 600 mg tablet 600 mg PO TID 07/13/19 09/11/21 metformin 500 mg tablet 500 mg PO DAILY 07/13/19 09/11/21 prochlorperazine maleate 10 mg 10 mg PO BID PRN 07/13/19 09/11/21 tablet vitamin B complex (B 1 tab PO DAILY 07/13/19 09/11/21 Complex-Vitamin B12 tablet) bepotastine besilate 1.5 % eye 1 drp ophthalmic (eye) BID 08/23/21 09/11/21 drops (Bepreve) cyclosporine 0.05 % eye drops in a 1 drp ophthalmic (eye) Q12H 08/23/21 09/11/21 dropperette (Restasis) hydroxyzine HCl 25 mg tablet 25 mg PO TID PRN 08/23/21 09/11/21 losartan 25 mg tablet 25 mg PO DAILY 08/23/21 09/11/21 sertraline 100 mg tablet 100 mg PO DAILY 08/23/21 09/11/21 cholestyramine-aspartame 4 gram 1 packet PO TID #90 ea 09/11/21 09/11/21 oral powder for susp in a packet (Cholestyramine Light) sucralfate 1 gram tablet (Carafate) 1 g PO TID #56 tabs 09/11/21 09/11/21 ondansetron HCl 4 mg tablet 4 mg PO Q8H PRN 3 days #9 tabs 11/12/21 oxycodone-acetaminophen 5 mg-325 1 tab PO Q8H PRN #8 tabs 11/12/21 mg tablet (Percocet) Previous Rx's Medication Instructions Recorded cholestyramine-aspartame 4 gram 1 packet PO TID #90 ea 09/11/21 oral powder for susp in a packet (Cholestyramine Light) sucralfate 1 gram tablet (Carafate) 1 g PO TID #56 tabs 09/11/21 ondansetron HCl 4 mg tablet 4 mg PO Q8H PRN 3 days #9 tabs 11/12/21 oxycodone-acetaminophen 5 mg-325 1 tab PO Q8H PRN #8 tabs 11/12/21 mg tablet (Percocet) Allergies Allergy/AdvReac Type Severity Reaction Status Date / Time latex Allergy Severe Skin Rash Unverified 09/11/21 10:27 Penicillins Allergy Severe Skin Rash Unverified 09/11/21 10:27 duloxetine [From Cymbalta] Allergy Intermediate dizziness Verified 09/11/21 10:27 General Stated Complaint: Abd Prob RIGOBERTO: 3 Review of Systems Constitutional Constitutional: Reports fever(s) ENT Ears, Nose, Mouth, and Throat: Denies neck pain Cardiovascular Cardiovascular: Denies chest pain and Reports dyspnea (pain takes breath away) Respiratory Respiratory: Denies cough and Reports dyspnea (pain takes breath away) Gastrointestinal Gastrointestinal: Reports abdominal pain, Reports diarrhea, Reports nausea and Reports vomiting Genitourinary Genitourinary: Denies dysuria Musculoskeletal Musculoskeletal: Denies back pain and Denies neck pain Integumentary/Breasts Skin/Breast: Denies rash PFSH All Active Problems (Updated 11/12/21 @ 17:21 by OTILIA Salazar) Follow up (Acute) Hyperglycemia (Acute) LBBB (left bundle branch block) (Acute) Abdominal pain (Acute) Gall stones (Acute) Diarrhea (Acute) History of colon polyps (Acute) Cholecystitis with cholelithiasis (Acute) Medical History Abnormal uterine bleeding Alopecia Anxiety associated with depression Arthritis of left acromioclavicular joint Bursitis of left shoulder Chest pain Per pt. stated this was a couple of years ago and had it worked up-negative work up Conjunctivitis Corneal ulcer COVID-19 virus infection 05/2021-symptomatic Dental infection Depression Fibromyalgia Gallstones GERD (gastroesophageal reflux disease) Grief at loss of child History of juvenile rheumatoid arthritis HTN (hypertension) Hyperlipidemia Hyperplastic colon polyp Impingement syndrome of left shoulder Insomnia Menometrorrhagia (04/08/13) Morbid obesity Obstructive sleep apnea SLAP lesion of left shoulder (~12/30/19) Tendinitis of long head of biceps brachii of left shoulder Tobacco dependence Trochanteric bursitis, left hip Tubular adenoma of colon Type 2 diabetes mellitus Surgical History Dilation and curettage H/O: hysterectomy History of Surgical Procedure a. D/C x1. S/P laparoscopic cholecystectomy (~08/29/21) Family History Mother Rheumatoid arthritis Father Heart disease Neoplasm lung ca Social History Smoking/Tobacco Use Status: Current every day Tobacco Type: cigarettes Tobacco: How many years used: 41 Smoking risk assessment performed?: Yes Alcohol Intake: never Drug use: Occasionally Substance use type: marijuana and other Details: Edibles for pain associated with her fibromyalgia. Last used weeks ago. Current gender identity: female Do you feel safe at home: Yes Do you feel safe in your relationship?: Yes Exam Const General: cooperative, healthy appearing, comfortable and no acute distress Orientation: alert and awake HENMT Head: normal to inspection, normocephalic and atraumatic Face and sinus: normal facial exam Mouth: moist mucous membranes Eyes General: appearance normal, both eyes and all related structures Conjunctivae: conjunctivae normal Neck Neck: normal visual inspection, full ROM, trachea midline and supple Resp Effort & Inspection: normal respiratory effort and able to speak in complete sentences Auscultation: clear to auscultation bilaterally Cardio Rate: regular rate Rhythm: regular rhythm GI Inspection: normal to inspection Palpation: soft, not firm, no guarding, no pulsatile masses and tender in the RUQ; with no rebound tenderness Auscultation: normal bowel sounds Back/Spine/Pelvis Back: No back tenderness Skin General skin exam: no rashes or lesions noted Neuro General: patient alert, patient awake, moves all extremities and no focal motor deficits Cognition: normal cognition Speech: speech normal Gait: normal gait Sensory Exam: no sensory deficits noted Extrem General: normal to inspection, full ROM and capillary refill normal Psych Appearance: grossly normal Mental Status: mental status grossly normal Course Vital Signs Vital signs: Vital Signs Temperature 36.4 C L 11/12/21 11:59 Pulse 81 11/12/21 11:59 Blood Pressure 119/69 11/12/21 11:59 Pulse Oximetry 99 11/12/21 11:59 Temperature 36.4 C L 11/12/21 11:59 Temperature Source Temporal Artery Scan 11/12/21 11:59 Pulse 81 11/12/21 11:59 Respiratory Effort Non-Labored 11/12/21 12:39 Blood Pressure 119/69 11/12/21 11:59 Blood Pressure Position Sitting 11/12/21 11:59 Pulse Oximetry 99 11/12/21 11:59 Oxygen Delivery Method Room Air 11/12/21 11:59 Oxygen Flow Rate 0 11/12/21 11:59 Pain Level 6 11/12/21 11:59
[2021-11-12 13:06] LABS: Abs Immature Grans 0.03 10^3/uL (0.0-0.06); Absolute Basophil Count 0.07 10^3/uL (0.0-0.2); Absolute Eosinophil Count 0.15 10^3/uL (0.0-0.7); Absolute Lymphocyte Count 2.41 10^3/uL (1.2-3.4); Absolute Monocyte Count 0.57 10^3/uL (0.1-0.8); Absolute Neutrophil Count 4.79 10^3/uL (1.2-6.7); Basophils % 0.9; Eosinophils % 1.9; HCT 34.2 % (36.0-46.0); HGB 10.4 g/dL (11.2-15.7); Immature Grans % 0.4; MCH 23.7 pg (27.0-33.0); MCHC 30.4 % (32.0-36.0); MCV 78 fL (80-95); MPV 9.6 fL (8.0-11.0); Monocytes % 7.1; Neutrophils % 59.7; Platelet Count 350 10^3/uL (130-400); RBC 4.39 10^6/uL (3.93-5.22); RDW 16.7 % (11.7-14.6); RDW-SD 47.4 fL; WBC 8.02 10^3/uL (4.4-10.8)
[2021-11-12] MEDS: Normal Saline 1,000 ML 1000 ML IV (13:11)
[2021-11-12] MEDS: MORPHine 4 MG/ML SYR IVP ×2 (13:12→16:25)
[2021-11-12] MEDS: Ondansetron 4 MG/2 ML VIAL IVP (13:16)
[2021-11-12 13:39] LABS: ALT 30 U/L (14-59); AST 23 U/L (15-37); Albumin 3.5 g/dL (3.4-5.0); Alkaline Phosphatase 126 U/L (46-116); Anion Gap 11.4 mmol/L (3-11); BUN 16 mg/dL (7-18); Bilirubin, Total 0.2 mg/dL (0.2-1.0); CO2 26.6 mmol/L (21.0-32.0); CREATININE 0.7 mg/dL (0.55-1.02); Calcium 9.5 mg/dL (8.5-10.1); Chloride 101 mmol/L (98-107); Glucose 96 mg/dL (74-106); Lipase 97 U/L (73-393); Potassium 4.4 mmol/L (3.5-5.1); Sodium 139 mmol/L (136-145); Total Protein 7.8 g/dL (6.4-8.2)
[2021-11-12 14:14] LABS: Bilirubin Negative (Negative); Blood Negative (Negative); Clarity Clear (Clear); Glucose Negative (Negative); Ketones Negative (Negative); Leukocyte Esterase Negative (Negative); Nitrite Negative (Negative); Specific Gravity 1.015 (1.005-1.025); Urobilinogen 0.2 EU/dL (Up TO 0.2)
--- NOTE | 2021-11-12 15:00 | DI.CT_ITS ---
Exam(s) CT ABDOMEN PELVIS W EXAM: CT ABDOMEN PELVIS W CLINICAL HISTORY: RUQ pain s/p ercp. TECHNIQUE: Imaging Protocol: Axial computed tomography images with coronal and sagittal reformatted images were created and reviewed CONTRAST MATERIAL: Intravenous: Omnipaque 100cc Oral: None COMPARISON: CT CT ABDOMEN PELVIS W from 04/05/2020 MR MR ABDOMEN WO/W from 10/18/2021 FINDINGS: VISUALIZED LUNG BASES: Mild increased markings both lung bases. No pleural effusions.. ABDOMEN: There is no ascites. LIVER: Liver is hypodense implying steatosis. There are no discrete focal hepatic lesions but there is some air evident within nondilated intrahepatic ducts in this patient had recent ERCP. GALLBLADDER/BILIARY: Gallbladder surgically absent. CBD is not dilated. Air is seen in the nondilat ed CBD. Also bead like air bubbles adjacent to this and ending at the level of surgical clip, most p robably air with in the cystic duct. No abnormal fluid collection to suggest bile leak nor abscess. PANCREAS: No evidence of pancreatic mass nor dilatation of the pancreatic duct. SPLEEN: Spleen is not enlarged. No obvious intrasplenic lesions. Splenic and portal veins are paten t. ADRENALS: There are no significant adrenal masses. KIDNEYS:No cysts evident. No solid renal masses. No calculi nor hydronephrosis.. ABDOMINAL AORTA: Abdominal aorta is not enlarged. LYMPH NODES:There is no retroperitoneal nor paraaortic adenopathy. ABDOMINAL WALL: No evidence of significant anterior abdominal wall nor inguinal hernia. GI: There is no evidence of bowel obstruction, free air, nor abscess. PELVIS: GI: No evidence of appendicitis.No evidence of sigmoid diverticulitis. LYMPH NODES: There is no intrapelvic nor inguinal adenopathy. REPRODUCTIVE: The uterus is surgically absent. There are no abnormal adnexal masses. URINARY BLADDER: No calculi nor obvious masses evident OSSEOUS: No significant osseous lesions. IMPRESSION: 1. Compared to the prior study of 04/05/2020 there has been interval cholecystectomy. No evidence of obvious pancreatitis in this patient had recent ERCP 2. There is air in the nondilated biliary tree, including the cystic duct. There is no abnormal flui d collection related biliary tree a waqas hepatis. 3. Hepatic steatosis noted 4. Uterus is surgically absent. No abnormal adnexal findings. No free fluid. Report called by myself to ER provider RADIATION DOSE DELIVERED: 1,464.23mGy.cm Total DLP DATA REPOSITORY: All CT scans at this facility are submitted to the National Radiology Data Registry (NRDR) Dose Index Registry (DIR) with the [employer] ([employer]). RADIATION OPTIMIZATION: All CT scans at this facility use at least one of these dose optimization te chniques: automated exposure control; mA and/or kV adjustment per patient size (includes targeted exa ms where dose is matched to clinical indication); or iterative reconstruction.
[2021-11-12] MEDS: Omnipaque 350 MG/ML 100 ML BTL IJ (16:43)
[2021-11-12 17:39] VITALS: BP 112/64; PULSE 63; TEMP 36.3; O2SAT 96
== END 2021-11-12 17:48 | disposition home or self-care (01) ==
PROVIDERS: Emergency Provider Physician Assistant; PCP Family Medicine
DX: R10.11 Right upper quadrant pain (principal); R11.2 Nausea with vomiting, unspecified
CPT/HCPCS: 36415; 80053; 81025; 83690; 96361; 96374; 96375; 96376; 99285; 74177; 81003; 85025; 99284; J2270; J2405; J3490

== ENCOUNTER 2021-11-21 15:56 | Outpatient (REF) | payer OTHER, SELFPAY ==
[2021-11-21 19:52] LABS: Abs Immature Grans 0.04 10^3/uL (0.0-0.06); Absolute Eosinophil Count 0.17 10^3/uL (0.0-0.7); Absolute Monocyte Count 0.74 10^3/uL (0.1-0.8); Absolute Neutrophil Count 7.69 10^3/uL (1.2-6.7); Basophils % 0.9; Eosinophils % 1.5; HCT 34.9 % (36.0-46.0); HGB 10.5 g/dL (11.2-15.7); Immature Grans % 0.4; Lymphocytes % 22.4; MCH 23.2 pg (27.0-33.0); MCHC 30.1 % (32.0-36.0); MCV 77 fL (80-95); Monocytes % 6.6; Neutrophils % 68.2; Platelet Count 398 10^3/uL (130-400); RBC 4.53 10^6/uL (3.93-5.22); RDW 16.7 % (11.7-14.6); RDW-SD 46.5 fL; WBC 11.27 10^3/uL (4.4-10.8)
[2021-11-21 20:09] LABS: Absolute Lymphocyte Count 2.52 10^3/uL (1.2-3.4)
[2021-11-21 20:12] LABS: ALT 39 U/L (14-59); AST 24 U/L (15-37); Albumin 3.8 g/dL (3.4-5.0); Alkaline Phosphatase 125 U/L (46-116); Anion Gap 11.5 mmol/L (3-11); BUN 16 mg/dL (7-18); Bilirubin, Total 0.2 mg/dL (0.2-1.0); CO2 23.5 mmol/L (21.0-32.0); CREATININE 0.8 mg/dL (0.55-1.02); Calcium 9.4 mg/dL (8.5-10.1); Chloride 101 mmol/L (98-107); Glucose 93 mg/dL (74-106); Lipase 110 U/L (73-393); Potassium 4.1 mmol/L (3.5-5.1); Sodium 136 mmol/L (136-145); Total Protein 7.8 g/dL (6.4-8.2)
== END 2021-11-21 15:57 | disposition home or self-care (01) ==
LOC: NCHCN 15:56
PROVIDERS: PCP Family Medicine; Visit Provider Family Medicine
DX: R10.9 Unspecified abdominal pain (principal)
CPT/HCPCS: 80053; 83690; 85025

== ENCOUNTER → 2022-02-07 03:13 | Outpatient (CLI) | payer OTHER, SELFPAY ==
--- NOTE | 2022-02-07 12:15 | DI.MAMMO_ITS ---
Exam(s) MAMMO SCREENING EXAM: MAMMO SCREENING CLINICAL HISTORY: SCREENING, Z13.9 TECHNIQUE: Mammograms were interpreted according to the usual protocol including computer analysis w [employer] CAD system, tomosynthesis and C-view imaging. COMPARISON: 2014 and 2019 FINDINGS: The breasts are composed of mainly fatty density , Breast Density category A. No suspicious masses or suspicious microcalcifications are seen. No skin thickening or abnormal axillary lymph nodes are seen. There has been no significant change from prior exams. IMPRESSION: BI-RADS Category 1, Negative mammogram Yearly screening mammography is recommended. Breast Density - Category A, fatty density. A negative radiographic report should not delay biopsy if a dominant or clinically suspicious mass is present. Up to ten percent of cancers are not identified on mammography. A negative report may reinforce clinical impression. Adenosis and dense breasts may obscure an underlying neoplasm. False positive reports average 6 to 10%. Patient will receive a letter notifying them of these results.
== END ==
PROVIDERS: PCP Family Medicine; Visit Provider Family Medicine
DX: Z12.31 Encounter for screening mammogram for malignant neoplasm of breast (principal)
CPT/HCPCS: 77063; 77067

== ENCOUNTER 2022-03-11 17:44 | Outpatient (REF) | payer OTHER, SELFPAY ==
[2022-03-11 19:10] LABS: Abs Immature Grans 0.02 10^3/uL (0.0-0.06); Absolute Basophil Count 0.09 10^3/uL (0.0-0.2); Absolute Eosinophil Count 0.14 10^3/uL (0.0-0.7); Absolute Lymphocyte Count 2.89 10^3/uL (1.2-3.4); Absolute Monocyte Count 0.59 10^3/uL (0.1-0.8); Absolute Neutrophil Count 5.39 10^3/uL (1.2-6.7); Eosinophils % 1.5; HCT 34.2 % (36.0-46.0); HGB 10.3 g/dL (11.2-15.7); Immature Grans % 0.2; Lymphocytes % 31.7; MCH 22.5 pg (27.0-33.0); MCHC 30.1 % (32.0-36.0); MCV 75 fL (80-95); MPV 10.3 fL (8.0-11.0); Monocytes % 6.5; Neutrophils % 59.1; Platelet Count 336 10^3/uL (130-400); RBC 4.58 10^6/uL (3.93-5.22); RDW 17.1 % (11.7-14.6); RDW-SD 45.2 fL; WBC 9.12 10^3/uL (4.4-10.8)
[2022-03-11 19:40] LABS: Microcytosis 2+; Polychromasia Present
[2022-03-11 19:41] LABS: Diff Comment RBC Morph Reviewed
[2022-03-11 20:01] LABS: Iron 28 ug/dL (50-170); Total Iron Binding Capacity 537 ug/dL (250-450); Transferrin Sat 5 % (15-50)
[2022-03-11 20:38] LABS: ALT 42 U/L (14-59); AST 22 U/L (15-37); Albumin 3.8 g/dL (3.4-5.0); Alkaline Phosphatase 146 U/L (46-116); Anion Gap 11.7 mmol/L (3-11); BUN 18 mg/dL (7-18); Bilirubin, Total 0.3 mg/dL (0.2-1.0); CO2 25.3 mmol/L (21.0-32.0); CREATININE 0.8 mg/dL (0.55-1.02); Calcium 9.7 mg/dL (8.5-10.1); Chloride 103 mmol/L (98-107); Estimated GFR 86.96 (mL/min/1.73m2); Ferritin 10 ng/mL (8-252); Glucose 89 mg/dL (74-106); Sodium 140 mmol/L (136-145); Total Protein 7.4 g/dL (6.4-8.2); Vitamin B12 271 pg/mL (193-986)
== END 2022-03-11 17:45 | disposition home or self-care (01) ==
LOC: NCHCN 17:44
PROVIDERS: PCP Family Medicine; Visit Provider Family Medicine
DX: D64.9 Anemia, unspecified (principal); R10.9 Unspecified abdominal pain; R68.83 Chills (without fever); Z79.899 Other long term (current) drug therapy
CPT/HCPCS: 80053; 82607; 82728; 83540; 83550; 85025

== ENCOUNTER 2022-05-20 00:27 | Outpatient (CLI) | payer OTHER, SELFPAY ==
[2022-05-20] MEDS: Albuterol HFA 18 GM 200 PUFF INH IH (11:27)
[2022-05-20] MEDS: Inhaler, Assist Device 1 EACH MC (11:27)
--- NOTE | 2022-05-21 07:15 | W.PFT ---
Date of service: 05/20/22 Time of Service: 10:11 Pulmonary Function Test Result Requesting Provider Moise Lala Indications: Chronic Cough Interpretation Spirometry: There is no airflow limitation. There is no bronchodilator response. Lung Volumes: Normal lung volumes Diffusion Capacity: There is normal diffusion. Airway Pressure: Normal airways resistance Impression Normal pulmonary function testing Clinical Correlation therefore is recommended.
== END 2022-05-20 00:28 | disposition home or self-care (01) ==
LOC: RT 00:30
PROVIDERS: PCP Family Medicine; Visit Provider Family Medicine
DX: R05.8 Other specified cough (principal); Z86.16 Personal history of COVID-19; R06.09 Other forms of dyspnea; R07.89 Other chest pain; F17.210 Nicotine dependence, cigarettes, uncomplicated
CPT/HCPCS: 94060; 94726; 94729

== ENCOUNTER 2022-07-10 19:04 | Outpatient (REF) | payer OTHER, SELFPAY ==
--- NOTE | 2022-07-10 15:25 | SKI_PTH ---
PATIENT: Nikia Denton LOC: [facility] U#:[id number] AGE/SX: 56/F ROOM: RE07/10/[address]: Moise Lala : 1965 BED: DIS: 07/10/2022 SPEC #: [id number] RECD: 07/11/22 12:45 STATUS: IVETTE REEliu #: [id number] JESS: 07/10/22 15:[address]: Moise Lala DEPT: Surgical Specimen RECD BY: Estella Galarza Tissues: 1 - SKIN BIOPSY(SHAVE/PUNCH) Procedures: GROSS AND MICRO LEVEL 3 Comments: [id number]
== END 2022-07-10 19:05 | disposition home or self-care (01) ==
LOC: NCHCN 19:04
PROVIDERS: PCP Family Medicine; Visit Provider Family Medicine
DX: L72.8 Other follicular cysts of the skin and subcutaneous tissue (principal)
CPT/HCPCS: 88304; 88305

== ENCOUNTER 2022-07-19 13:45 | Emergency (ER) | payer OTHER, SELFPAY ==
[2022-07-19 13:48] VITALS: BP 126/84; PULSE 85; RESP 16; TEMP 37.1; O2SAT 98
[2022-07-19] MEDS: Acetaminophen 500 MG TAB 1000 MG PO (14:37)
--- NOTE | 2022-07-19 15:04 | ED.GENADUL_ITS ---
Discharge Plan Disposition Patient Disposition: Home Discharge Details Clinical Impression: Postoperative wound dehiscence Primary Care Provider: Moise Lala ED Provider: Thomas James Home Meds and New Rx's Prescriptions: No Action cholestyramine-aspartame [Cholestyramine Light] 4 gram powder in packet 1 packet PO TID Qty: 90 0RF Patient Comments: Pt no longer taking 07/19/2022 CT Rx Instructions: administer w/meal; avoid other meds within 1hr before or 4-6hr after dose sucralfate [Carafate] 1 gram tablet 1 g PO TID Qty: 56 0RF Rx Instructions: 30 minutes before meals. Take Carafate first and then Cholestyramine 5 to 10 minutes later acetaminophen [Tylenol] 325 MG tablet 650 mg PO TID atorvastatin [Lipitor] 20 MG tablet 40 mg PO HS trazodone 50 MG tablet 50 mg PO HS omeprazole 10 MG capsule,delayed release(DR/EC) 20 mg PO BID Patient Comments: Pt no longer takes 07/19/2022 CT cholecalciferol (vitamin D3) 5,000 UNIT capsule 5,000 unit PO DAILY vitamin [id number] acid 1 EACH tablet 1 ea PO DAILY tizanidine 2 MG tablet 2 mg PO PRN amlodipine 5 MG tablet 5 mg PO DAILY Trulicity 1.5 mg/0.5 mL pen injector 1.5 mg SC QWEEK ibuprofen 600 mg tablet 600 mg PO TID prochlorperazine maleate 10 mg tablet 10 mg PO BID PRN metformin 500 mg tablet 500 mg PO DAILY vitamin B complex [B Complex-Vitamin B12] Tablet 1 tab PO DAILY cyclosporine [Restasis] 0.05 % dropperette 1 drp ophthalmic (eye) Q12H Patient Comments: Pt no longer taking med 07/19/2022 CT sertraline 100 mg tablet 100 mg PO DAILY bepotastine besilate [Bepreve] 1.5 % drops 1 drp ophthalmic (eye) BID Patient Comments: Pt no longer using med 07/19/2022 CT hydroxyzine HCl 25 mg tablet 25 mg PO TID PRN losartan 25 mg tablet 25 mg PO DAILY colestipol 1 gram tablet 1 g PO QID Patient Comments: No longer taking 07/19/2022 CT pregabalin 100 mg capsule 100 mg PO BID pantoprazole 40 mg tablet,delayed release (DR/EC) 40 mg PO DAILY oxycodone-acetaminophen [Percocet] 5-325 mg tablet 1 tab PO Q8H PRNQty: 8 0RF Patient Comments: Pt no longer taking medication 07/19/2022 CT Discharge Instructions Instructions: Wound Dehiscence (ED) Additional Instructions: Please perform wet-to-dry dressing changes twice daily as directed by nursing staff development coordinator. We have placed you on a follow-up to follow-up with your primary care provider early next week. If you notice any signs of infection return immediately to the emergency department for reassessment. If your primary care provider is unable to see you early next week please go to local urgent care for wound recheck. Referrals: Moise Lala [Primary Care Provider] - 3 days Discharge Data Discharge Date/Time-TO BE ENTERED AT DEPARTURE: 07/19/22 15:26 Medical Decision Making Dehisced wound to left buttock. Approximately 4 cm x 1-1/2 cm x 5 mm deep. Contacted general surgeon whom recommended wet-to-dry dressing. Due to significant amount of pain patient given limited narcotic which we discussed risk versus benefit of use of this along with [id number] medication. At this time there are no signs of infection but patient states understanding to return for any new or worsening of condition. After discussion of diagnosis and plan of care patient has no further needs, questions, or concerns and states clear understanding to return to the emergency department for any worsening symptoms. This documentation was generated using [employer] dictation system, please disregard any oddities of phrase or misspellings. HPI General Mode of arrival: ambulatory . Date/Time Provider Initiated Documentation: 07/19/22 13:48 . Limitations to Documentation: no limitations . Information obtained by: patient and RN notes reviewed . History of Present Illness 56 year old F presents to the emergency department with the chief complaint of Wound reopening, described as moderate, with intensity rated at 6. Quality is described as aching and sharp, and is localized to the buttocks and left. Patient started experiencing this hour(s) (2) and it has been constant. No relieving factors improve symptom(s), Patient notes no other symptoms.. Patient did receive the following treatments prior to arrival, none Related Data Home Medications Medication Instructions Recorded Confirmed acetaminophen 325 mg tablet 650 mg PO TID 11/21/13 03/03/23 (Tylenol) atorvastatin 20 mg tablet (Lipitor) 40 mg PO HS 04/08/13 07/19/22 cholecalciferol (vitamin D3) 125 5,000 unit PO DAILY 04/08/13 07/19/22 mcg (5,000 unit) capsule omeprazole 10 mg capsule,delayed 20 mg PO BID 04/08/13 09/11/21 release trazodone 50 mg tablet 50 mg PO HS 04/08/13 07/19/22 vitamin B12 500 mcg-folic acid 400 1 ea PO DAILY 04/08/13 07/19/22 mcg tablet amlodipine 5 mg tablet 5 mg PO DAILY 05/26/17 07/19/22 tizanidine 2 mg tablet 2 mg PO PRN 05/26/17 07/19/22 dulaglutide 1.5 mg/0.5 mL 1.5 mg subcut QWEEK 07/13/19 07/19/22 subcutaneous pen injector (Trulicity) ibuprofen 600 mg tablet 600 mg PO TID 07/13/19 07/19/22 metformin 500 mg tablet 500 mg PO DAILY 07/13/19 07/19/22 prochlorperazine maleate 10 mg 10 mg PO BID PRN 07/13/19 07/19/22 tablet vitamin B complex (B 1 tab PO DAILY 07/13/19 09/11/21 Complex-Vitamin B12 tablet) bepotastine besilate 1.5 % eye 1 drp ophthalmic (eye) BID 08/23/21 09/11/21 drops (Bepreve) cyclosporine 0.05 % eye drops in a 1 drp ophthalmic (eye) Q12H 08/23/21 09/11/21 dropperette (Restasis) hydroxyzine HCl 25 mg tablet 25 mg PO TID PRN 08/23/21 07/19/22 losartan 25 mg tablet 25 mg PO DAILY 08/23/21 07/19/22 sertraline 100 mg tablet 100 mg PO DAILY 08/23/21 07/19/22 cholestyramine-aspartame 4 gram 1 packet PO TID #90 ea 09/11/21 09/11/21 oral powder for susp in a packet (Cholestyramine Light) sucralfate 1 gram tablet (Carafate) 1 g PO TID #56 tabs 09/11/21 07/19/22 oxycodone-acetaminophen 5 mg-325 1 tab PO Q8H PRN #8 tabs 11/12/21 mg tablet (Percocet) colestipol 1 gram tablet 1 g PO QID 05/23/22 pantoprazole 40 mg tablet,delayed 40 mg PO DAILY 05/23/22 07/19/22 release pregabalin 100 mg capsule 100 mg PO BID 05/23/22 07/19/22 Previous Rx's Medication Instructions Recorded cholestyramine-aspartame 4 gram 1 packet PO TID #90 ea 09/11/21 oral powder for susp in a packet (Cholestyramine Light) sucralfate 1 gram tablet (Carafate) 1 g PO TID #56 tabs 09/11/21 oxycodone-acetaminophen 5 mg-325 1 tab PO Q8H PRN #8 tabs 11/12/21 mg tablet (Percocet) Allergies Allergy/AdvReac Type Severity Reaction Status Date / Time latex Allergy Severe Skin Rash Unverified 07/19/22 13:52 Penicillins Allergy Severe Skin Rash Unverified 07/19/22 13:52 duloxetine [From Cymbalta] Allergy Intermediate dizziness Verified 07/19/22 13:52 General Stated Complaint: RashLesion RIGOBERTO: 4 Review of Systems Narrative: 6 systems reviewed and unremarkable except what is marked below. 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 stated this was a couple of years ago and had it worked up-negative work up Chills Conjunctivitis Corneal ulcer Corneal ulcer of right eye Cough COVID-19 virus infection 05/2021-symptomatic Dental infection Depression Fibromyalgia Gallstones GERD (gastroesophageal reflux disease) Grief at loss of child History of juvenile rheumatoid arthritis HTN (hypertension) Hx of gallstones Hyperlipidemia Hyperplastic colon polyp Impingement syndrome of left shoulder Insomnia Menometrorrhagia (04/08/13) Menopausal disorder Morbid obesity Obstructive sleep apnea Other specified disorders of tendon, left shoulder Skin nodule SLAP lesion of left shoulder (~12/30/19) Tendinitis of long head of biceps brachii of left shoulder Tobacco dependence Tremor Trochanteric bursitis Trochanteric bursitis, left hip Tubular adenoma of colon Type 2 diabetes mellitus Surgical History Dilation and curettage H/O: hysterectomy History of Surgical Procedure a. D/C x1. S/P laparoscopic cholecystectomy (~08/29/21) Family History Mother Rheumatoid arthritis Father Heart disease Neoplasm lung ca Social History Smoking/Tobacco Use Status: Current every day Tobacco Type: cigarettes Tobacco: How many years used: 41 Smoking risk assessment performed?: Yes Alcohol Intake: never Drug use: Occasionally Substance use type: marijuana and other Details: Edibles for pain associated with her fibromyalgia. Last used weeks ago. Current gender identity: female Do you feel safe at home: Yes Do you feel safe in your relationship?: Yes Exam Const General: cooperative, no acute distress and not ill appearing Orientation: alert, awake and oriented x3 Resp Effort & Inspection: normal respiratory effort, able to speak in complete sentences and no respiratory distress Skin General skin exam: no rashes or lesions noted Wounds: wounds noted laceration left lateral buttock open; without any surrounding erythema Neuro General: patient alert, patient awake, patient oriented x3, moves all extremities and no focal motor deficits Course Vital Signs Vital signs: Vital Signs Temperature 37.1 C 07/19/22 13:48 Pulse 85 07/19/22 13:48 Respiratory Rate 16 07/19/22 13:48 Blood Pressure 126/84 07/19/22 13:48 Pulse Oximetry 98 07/19/22 13:48 Temperature 37.1 C 07/19/22 13:48 Temperature Source Tympanic 07/19/22 13:48 Pulse 85 07/19/22 13:48 Respiratory Rate 16 07/19/22 13:48 Respiratory Effort Normal 07/19/22 13:51 Blood Pressure 126/84 07/19/22 13:48 Blood Pressure Position Sitting 07/19/22 13:48 Pulse Oximetry 98 07/19/22 13:48 Oxygen Delivery Method Room Air 07/19/22 13:48 Oxygen Flow Rate 0 07/19/22 13:48 Pain Level 7 07/19/22 13:48
[2022-07-19 15:25] VITALS: BP 131/75; PULSE 89; RESP 16; TEMP 36.4; O2SAT 100
== END 2022-07-19 15:26 | disposition home or self-care (01) ==
PROVIDERS: Emergency Provider Nurse Practitioner Family; PCP Family Medicine
DX: T81.31XA Disruption of external operation (surgical) wound, not elsewhere classified, initial encounter (principal)
CPT/HCPCS: 99283; 99284

== ENCOUNTER 2022-09-18 11:30 | Outpatient (REF) | payer OTHER, SELFPAY ==
[2022-09-18 16:21] LABS: HCT 37.8 % (36.0-46.0); HGB 11.9 g/dL (11.2-15.7); MCH 26.2 pg (27.0-33.0); MCHC 31.5 % (32.0-36.0); MCV 83 fL (80-95); MPV 10.6 fL (8.0-11.0); Platelet Count 268 10^3/uL (130-400); RBC 4.54 10^6/uL (3.93-5.22); RDW 16.4 % (11.7-14.6); RDW-SD 49.9 fL; WBC 4.93 10^3/uL (4.4-10.8)
[2022-09-18 16:42] LABS: Iron 30 ug/dL (50-170); Total Iron Binding Capacity 479 ug/dL (250-450); Transferrin Sat 6 % (15-50)
[2022-09-18 16:43] LABS: Hemoglobin A1C 7.5 % (<5.7)
[2022-09-18 17:03] LABS: ALT 57 U/L (14-59); AST 23 U/L (15-37); Albumin 3.7 g/dL (3.4-5.0); Alkaline Phosphatase 156 U/L (46-116); Anion Gap 8.2 mmol/L (3-11); BUN 10 mg/dL (7-18); Bilirubin, Total 0.2 mg/dL (0.2-1.0); CO2 28.8 mmol/L (21.0-32.0); CREATININE 0.9 mg/dL (0.55-1.02); Calcium 9.2 mg/dL (8.5-10.1); Chloride 103 mmol/L (98-107); Ferritin 14 ng/mL (8-252); Glucose 183 mg/dL (74-106); Potassium 4.6 mmol/L (3.5-5.1); Sodium 140 mmol/L (136-145); Total Protein 7.2 g/dL (6.4-8.2); Vitamin B12 1703 pg/mL (193-986)
[2022-09-23 13:21] LABS: IgA 233 mg/dL (85-499); Interpretation (See Note); Tissue Transglutaminase IgA <1.2 U/mL (<4.0)
== END 2022-09-18 11:31 | disposition home or self-care (01) ==
LOC: NCHCN 11:30
PROVIDERS: PCP Family Medicine; Visit Provider Family Medicine
DX: E11.9 Type 2 diabetes mellitus without complications (principal); K52.9 Noninfective gastroenteritis and colitis, unspecified; R74.8 Abnormal levels of other serum enzymes
CPT/HCPCS: 80053; 82784; 83516; 85027; 82607; 82728; 83036; 83540; 83550; 84443

== ENCOUNTER 2022-12-02 11:53 | Emergency (ER) | payer OTHER, SELFPAY ==
[2022-12-02] VITALS (26 sets, daily range): BP systolic 103–136; BP diastolic 68–88; PULSE 60–75; RESP 13–26; TEMP 36.3; O2SAT 94–99
--- NOTE | 2022-12-02 12:00 | RT.EKG_ITS ---
APPROVED REPORT Exam: Resting ECG Reason for Exam: fainnted Patient Location: E HR:69 bpm ECG Measurements Heart Rate 69 AXIS TX 196 P 52 QRSd 171 QRS 2 QT 468 T 126 QTc 502 Conclusion Sinus rhythm...normal P axis, V-rate 60- 99 Left bundle branch block...QRSd>120, broad/notched R ST elevation secondary to IVCD...Multiple VCG criteria Physician: no stemi, LBBB unchanged, negative for sgarbossa
[2022-12-02] MEDS: Normal Saline 1,000 ML 1000 ML IV (12:40)
[2022-12-02 12:49] LABS: Abs Immature Grans 0.02 10^3/uL (0.0-0.06); Absolute Basophil Count 0.07 10^3/uL (0.0-0.2); Absolute Eosinophil Count 0.11 10^3/uL (0.0-0.7); Absolute Lymphocyte Count 2.62 10^3/uL (1.2-3.4); Absolute Monocyte Count 0.53 10^3/uL (0.1-0.8); Absolute Neutrophil Count 3.21 10^3/uL (1.2-6.7); Basophils % 1.1; Eosinophils % 1.7; HCT 40.4 % (36.0-46.0); Immature Grans % 0.3; Lymphocytes % 39.9; MCH 27.5 pg (27.0-33.0); MCHC 32.2 % (32.0-36.0); MCV 86 fL (80-95); MPV 9.8 fL (8.0-11.0); Monocytes % 8.1; Neutrophils % 48.9; Platelet Count 265 10^3/uL (130-400); RBC 4.72 10^6/uL (3.93-5.22); RDW 15.9 % (11.7-14.6); RDW-SD 49.3 fL; WBC 6.56 10^3/uL (4.4-10.8)
[2022-12-02 13:03] LABS: INR 0.9 (0.9-1.1); PTT Activated 23.7 sec (21.5-31.9); Prothrombin Time 9.3 sec (9.3-11.0)
[2022-12-02 13:20] LABS: ALT 58 U/L (14-59); AST 25 U/L (15-37); Albumin 3.6 g/dL (3.4-5.0); Alkaline Phosphatase 159 U/L (46-116); Anion Gap 9.2 mmol/L (3-11); BUN 13 mg/dL (7-18); Bilirubin, Total 0.3 mg/dL (0.2-1.0); CO2 26.8 mmol/L (21.0-32.0); CREATININE 0.8 mg/dL (0.55-1.02); Calcium 9.1 mg/dL (8.5-10.1); Chloride 103 mmol/L (98-107); Estimated GFR 86.42 (mL/min/1.73m2); Glucose 147 mg/dL (74-106); NT-proBNP 164 pg/mL (<300); Potassium 3.7 mmol/L (3.5-5.1); Sodium 139 mmol/L (136-145); TSH (W/Ref FT4) 1.88 uIU/mL (0.36-3.74); Total Protein 7.4 g/dL (6.4-8.2); Troponin I < 50 ng/L (<or=60)
--- NOTE | 2022-12-02 13:30 | DI.RAD_ITS ---
Exam(s) XR KNEE LT 3V AP,LAT,ADRIANA EXAM: XR KNEE LT 3V AP,LAT,ADRIANA CLINICAL HISTORY: fall, left knee pain. TECHNIQUE: 2D digital imaging was performed. Three views. COMPARISON: No exams were available for comparison FINDINGS: BONES: No acute fracture is present. No bony destructive lesion is seen. JOINTS: The knee is normally aligned. No joint effusion is seen. SOFT TISSUE: Normal. IMPRESSION: Normal radiographs of the left knee. DATA REPOSITORY: RADIATION DOSE DELIVERED:
--- NOTE | 2022-12-02 13:30 | DI.CT_ITS ---
Exam(s) CT HEAD WO EXAM: CT HEAD WO CLINICAL HISTORY: syncope. TECHNIQUE: Imaging Protocol: Axial computed tomography images with coronal and sagittal reformatted images were created and reviewed COMPARISON: No exams were available for comparison FINDINGS: Ventricles and Extra axial spaces: Normal in size and morphology for the patient's age. Hemorrhage: None. Cerebral parenchyma: No evidence of acute infarct or mass. Midline shift: None. Brainstem/Cerebellum: Normal. Calvarium: Normal. Visualized Paranasal sinuses/Mastoids: Clear. Soft Tissues: Unremarkable. IMPRESSION: No acute intracranial process. RADIATION DOSE DELIVERED: 704.72mGy.cm Total DLP DATA REPOSITORY: All CT scans at this facility are submitted to the National Radiology Data Registry (NRDR) Dose Index Registry (DIR) with the [employer] ([employer]). RADIATION OPTIMIZATION: All CT scans at this facility use at least one of these dose optimization te chniques: automated exposure control; mA and/or kV adjustment per patient size (includes targeted exa ms where dose is matched to clinical indication); or iterative reconstruction.
[2022-12-02] MEDS: Acetaminophen 500 MG TAB (13:43)
--- NOTE | 2022-12-02 14:33 | W.ED.GENAD ---
Discharge Plan Disposition Patient Disposition: Home Discharge Details Clinical Impression: Abrasion of knee, left, Syncope, vasovagal Primary Care Provider: Moise Lala ED Provider: Cristi Hawkins Home Meds and New Rx's Prescriptions: No Action amitriptyline 25 mg tablet 25 mg PO QHS Qty: 30 5RF acetaminophen [Tylenol] 325 MG tablet 650 mg PO TID atorvastatin [Lipitor] 20 MG tablet 40 mg PO HS omeprazole 10 MG capsule,delayed release(DR/EC) 20 mg PO BID Patient Comments: Pt no longer takes 07/19/2022 CT cholecalciferol (vitamin D3) 5,000 UNIT capsule 5,000 unit PO DAILY vitamin X62-xthpy acid 1 EACH tablet 1 ea PO DAILY amlodipine 5 MG tablet 5 mg PO DAILY Trulicity 1.5 mg/0.5 mL pen injector 1.5 mg SC QWEEK ibuprofen 600 mg tablet 600 mg PO TID prochlorperazine maleate 10 mg tablet 10 mg PO BID PRN metformin 500 mg tablet 500 mg PO DAILY vitamin B complex [B Complex-Vitamin B12] Tablet 1 tab PO DAILY hydroxyzine HCl 25 mg tablet 25 mg PO TID PRN losartan 25 mg tablet 25 mg PO DAILY colestipol 1 gram tablet 1 g PO QID Patient Comments: No longer taking 07/19/2022 CT pregabalin 100 mg capsule 150 mg PO BID pantoprazole 40 mg tablet,delayed release (DR/EC) 40 mg PO DAILY Discharge Instructions Instructions: Syncope (ED), Knee Pain (ED) Additional Instructions: At this time the x-ray of your knee and of your head is negative for any signs of stroke, fracture or other significant abnormality. I do suspect you have contused the area fairly significantly. Please take Tylenol and Motrin as needed for pain. Please keep the area clean and bandage. If you notice any worsening of your symptoms, or any new symptoms such as vomiting, diarrhea, fever, chills, shortness of breath, chest pain, numbness, weakness, or fainting , please return immediately to the emergency department for reevaluation. Please follow up with your primary care provider as soon as possible for reassessment and reevaluation. As always, it was a pleasure participating in your medical care today. Referrals: Moise Lala [Primary Care Provider] - Discharge Data Discharge Date/Time-TO BE ENTERED AT DEPARTURE: 12/02/22 14:57 Medical Decision Making 57-year-old female with a past medical history of type 2 diabetes, left bundle branch block, long COVID syndrome, presents today for syncope. Patient states that she was outside in the hot weather, had not drunk much fluid today, and while walking started to get lightheaded, passed out. She hit her knees and landed on her knees. She did not hit her head. She denies any pain in her arms head neck chest abdomen pelvis, but does have pain in her left knee where she scraped it. She denies any syncope before. She denies any exertional chest pain or dyspnea. She denies any history of PE. No other complaints at this time. No other modifying factors. Exam demonstrates a well-appearing female, dry mucous membranes, vital signs stable, normal neurologic assessment. Left knee demonstrates abrasion, no laceration, and contusion. Tenderness over the patella and fibula. X-rays are ordered and demonstrates no evidence of fracture, CT scan of the head negative for acute process. EKG stable left bundle branch block, negative for Sgarbossa, laboratory work-up normal, electrolytes normal, thyroid functions proBNP normal. Troponin normal. Patient otherwise stable. After rehydration patient feels well and is requesting to go home. I feel this is very reasonable. Knee was bandaged. Recommend continued hydration at home. Symptoms at this time appear clinically inconsistent with life-threatening etiology, and more consistent with vasovagal syncope secondary to mild dehydration, and exertion in the sun. I have extensively reviewed the treatment plan and discharge instructions with the patient. I have addressed all patient concerns at this time. The patient was made aware of what symptoms to monitor for that would warrant a return to the emergency department. Discussed the plan with the patient, they demonstrate verbal understanding and agreement with our assessment and plan at this time. The documentation in this chart was dictated using [employer] dictation software. Please excuse any dictation errors. FINDINGS: BONES: No acute fracture is present. No bony destructive lesion is seen. JOINTS: The knee is normally aligned. No joint effusion is seen. SOFT TISSUE: Normal. IMPRESSION: Normal radiographs of the left knee. FINDINGS: Ventricles and Extra axial spaces: Normal in size and morphology for the patient's age. Hemorrhage: None. Cerebral parenchyma: No evidence of acute infarct or mass. Midline shift: None. Brainstem/Cerebellum: Normal. Calvarium: Normal. Visualized Paranasal sinuses/Mastoids: Clear. Soft Tissues: Unremarkable. IMPRESSION: No acute intracranial process. HPI General Date/Time Provider Initiated Documentation: 12/02/22 12:09. HPI Narrative: 57-year-old female with a past medical history of type 2 diabetes, left bundle branch block, long COVID syndrome, presents today for syncope. Patient states that she was outside in the hot weather, had not drunk much fluid today, and while walking started to get lightheaded, passed out. She hit her knees and landed on her knees. She did not hit her head. She denies any pain in her arms head neck chest abdomen pelvis, but does have pain in her left knee where she scraped it. She denies any syncope before. She denies any exertional chest pain or dyspnea. She denies any history of PE. No other complaints at this time. No other modifying factors. Related Data Home Medications Medication Instructions Recorded Confirmed acetaminophen 325 mg tablet 650 mg PO TID 04/08/13 12/02/22 (Tylenol) atorvastatin 20 mg tablet (Lipitor) 40 mg PO HS 04/08/13 12/02/22 cholecalciferol (vitamin D3) 125 5,000 unit PO DAILY 04/08/13 12/02/22 mcg (5,000 unit) capsule omeprazole 10 mg capsule,delayed 20 mg PO BID 04/08/13 12/02/22 release vitamin B12 500 mcg-folic acid 400 1 ea PO DAILY 04/08/13 12/02/22 mcg tablet amlodipine 5 mg tablet 5 mg PO DAILY 05/26/17 12/02/22 dulaglutide 1.5 mg/0.5 mL 1.5 mg subcut QWEEK 07/13/19 12/02/22 subcutaneous pen injector (Trulicity) ibuprofen 600 mg tablet 600 mg PO TID 07/13/19 12/02/22 metformin 500 mg tablet 500 mg PO DAILY 07/13/19 12/02/22 prochlorperazine maleate 10 mg 10 mg PO BID PRN 07/13/19 12/02/22 tablet vitamin B complex (B 1 tab PO DAILY 07/13/19 12/02/22 Complex-Vitamin B12 tablet) hydroxyzine HCl 25 mg tablet 25 mg PO TID PRN 08/23/21 12/02/22 losartan 25 mg tablet 25 mg PO DAILY 08/23/21 12/02/22 colestipol 1 gram tablet 1 g PO QID 05/23/22 12/02/22 pantoprazole 40 mg tablet,delayed 40 mg PO DAILY 05/23/22 12/02/22 release pregabalin 100 mg capsule 150 mg PO BID 05/23/22 12/02/22 amitriptyline 25 mg tablet 25 mg PO QHS #30 tabs 09/23/22 09/23/22 Previous Rx's Medication Instructions Recorded amitriptyline 25 mg tablet 25 mg PO QHS #30 tabs 09/23/22 Allergies Allergy/AdvReac Type Severity Reaction Status Date / Time latex Allergy Severe Skin Rash Unverified 12/02/22 13:34 Penicillins Allergy Severe Skin Rash Unverified 12/02/22 13:34 duloxetine [From Cymbalta] Allergy Intermediate dizziness Verified 12/02/22 13:34 General Stated Complaint: Dizzy/Sync RIGOBERTO: 3 Review of Systems All systems reviewed & are unremarkable except as noted in HPI and below PFSH All Active Problems Abrasion of knee, left (Acute) Syncope, vasovagal (Acute) Chronic headache (Acute) Insomnia (Acute) Follow up (Acute) Hyperglycemia (Acute) LBBB (left bundle branch block) (Acute) Abdominal pain (Acute) Gall stones (Acute) Diarrhea (Acute) History of colon polyps (Acute) Cholecystitis with cholelithiasis (Acute) Medical History Abnormal uterine bleeding Adjustment disorder with anxious mood Alopecia Anemia Anxiety associated with depression Arthritis of left acromioclavicular joint Bile acid malabsorption syndrome BMI 35.0-35.9,adult Bursitis of left shoulder Chest pain Per pt. stated this was a couple of years ago and had it worked up-negative work up Corneal ulcer of right eye COVID-19 virus infection 05/2021-symptomatic Depression Fibromyalgia Gallstones GERD (gastroesophageal reflux disease) Grief at loss of child History of juvenile rheumatoid arthritis HTN (hypertension) Hyperlipidemia Hyperplastic colon polyp Menopausal disorder Morbid obesity Obstructive sleep apnea SLAP lesion of left shoulder (~12/30/19) Tendinitis of long head of biceps brachii of left shoulder Tobacco dependence Tremor Trochanteric bursitis Trochanteric bursitis, left hip Tubular adenoma of colon Type 2 diabetes mellitus Surgical History Dilation and curettage H/O: hysterectomy History of Surgical Procedure a. D/C x1. S/P laparoscopic cholecystectomy (~08/29/21) Family History Mother Rheumatoid arthritis Father Heart disease Neoplasm lung ca Social History Smoking/Tobacco Use Status: Current every day Tobacco Type: cigarettes Tobacco: How many years used: 41 Smoking risk assessment performed?: Yes Alcohol Intake: never Drug use: Occasionally Substance use type: marijuana and other Details: Edibles for pain associated with her fibromyalgia. Last used weeks ago. 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 3.ENT: Atraumatic external nose and ears. Dry MM. Neck: Symmetric, trachea midline, No thyromegaly. 4.CVS: +S1/S2, No murmurs or gallops. Peripheral pulses 2+ and equal in all extremities. Brisk capillary refill in all extremities. 5.RESP: Unlabored respiratory effort. Clear to auscultation bilaterally. No wheezes rales or rhonchi 6.GI: Soft, Nontender/Nondistended, No hepatosplenomegaly. No guarding or rebound. 7.MSK: Left knee demonstrates an abrasion over the patella. Mild tenderness at the patella as well as the proximal fibula. Minimal tibial plateau tenderness. Good range of motion. Normal strength. Patient is able to walk without any significant limp. 8.Skin: Warm, Dry. No rashes or lesions. 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 Sensation grossly intact, no focal neurologic deficits. All 6 cardinal planes of vision are fully intact. No evidence of rotatory or vertical nystagmus. The patient demonstrated a normal [id number], good dexterity. There was no evidence of dysdiadochokinesia. Patient was able to ambulate without difficulty. There was no wide-based gait. Romberg testing was normal. [id number] testing was normal. Sensation was intact bilaterally as well as muscle strength bilaterally for all extremities. Patient was able to verbalize butter cup with no slurring, or miss pronunciation. 10.Psych: (AAO) x3. Appropriate mood and affect Course Vital Signs Vital signs: Vital Signs Temperature 36.3 C L 12/02/22 12:02 Pulse 70 12/02/22 12:02 Respiratory Rate 18 12/02/22 12:02 Blood Pressure 123/75 12/02/22 12:02 Pulse Oximetry 98 12/02/22 12:02 Temperature 36.3 C L 12/02/22 12:02 Temperature Source Oral 12/02/22 12:02 Pulse 61 12/02/22 13:31 Pulse 62 12/02/22 13:31 Respiratory Rate 15 12/02/22 13:31 Respiratory Effort Non-Labored 12/02/22 12:06 Blood Pressure 132/71 12/02/22 13:31 Blood Pressure Mean 84 12/02/22 13:31 Blood Pressure Position Sitting 12/02/22 12:02 Pulse Oximetry 98 12/02/22 13:31 Oxygen Delivery Method Room Air 12/02/22 12:02 Oxygen Flow Rate 0 12/02/22 12:02 Lab/Test Results Lab/Test Results: Laboratory Tests Range/Units 12/02/22 12/02/22 12/02/22 12:40 12:40 12:40 WBC (4.4-10.8) 10^3/uL 6.56 RBC (3.93-5.22) 10^6/uL 4.72 Hgb (11.2-15.7) g/dL 13.0 Hct (36.0-46.0) % 40.4 MCV (80-95) fL 86 MCH (27.0-33.0) pg 27.5 MCHC (32.0-36.0) % 32.2 RDW (11.7-14.6) % 15.9 H Plt Count (130-400) 10^3/uL 265 MPV (8.0-11.0) fL 9.8 Immature Gran % 0.3 Neutrophils % 48.9 Lymphocytes % 39.9 Monocytes % 8.1 Eosinophils % 1.7 Basophils % 1.1 Nucleated RBC % (0.0-0.3) % 0.0 Absolute Neutrophils (1.2-6.7) 10^3/uL 3.21 Absolute Lymphocytes (1.2-3.4) 10^3/uL 2.62 Absolute Monocytes (0.1-0.8) 10^3/uL 0.53 Absolute Eosinophils (0.0-0.7) 10^3/uL 0.11 Absolute Basophils (0.0-0.2) 10^3/uL 0.07 PT (9.3-11.0) sec 9.3 INR (0.9-1.1) 0.9 APTT (21.5-31.9) sec 23.7 Sodium (136-145) mmol/L 139 Potassium (3.5-5.1) mmol/L 3.7 Chloride (98-107) mmol/L 103 Carbon Dioxide (21.0-32.0) mmol/L 26.8 Anion Gap (3-11) mmol/L 9.2 BUN (7-18) mg/dL 13 Creatinine (0.55-1.02) mg/dL 0.8 Est GFR (CKD-EPI 2020) (mL/min/1.73m2) 86.42 Glucose (74-106) mg/dL 147 H Calcium (8.5-10.1) mg/dL 9.1 Total Bilirubin (0.2-1.0) mg/dL 0.3 AST (15-37) U/L 25 ALT (14-59) U/L 58 Alkaline Phosphatase (46-116) U/L 159 H Troponin I (<or=60) ng/L < 50 NT-Pro-B Natriuret Pep (<300) pg/mL 164 Total Protein (6.4-8.2) g/dL 7.4 Albumin (3.4-5.0) g/dL 3.6 TSH (0.36-3.74) uIU/mL 1.88
--- NOTE | 2022-12-02 14:52 | NUR.NOTE ---
Nursing Note: Called [facility] for tetanus status. The staff person I spoke with stated that TDAP 09/12/2015NG and 05-27-2017. Dr Hawkins notified.
== END 2022-12-02 14:57 | disposition home or self-care (01) ==
PROVIDERS: Emergency Provider Student in an Organized Health Care Education/Training Program; PCP Family Medicine
DX: R55 Syncope and collapse (principal); S80.212A Abrasion, left knee, initial encounter; R94.31 Abnormal electrocardiogram [ECG] [EKG]; E11.9 Type 2 diabetes mellitus without complications; I10 Essential (primary) hypertension; F17.210 Nicotine dependence, cigarettes, uncomplicated; Z79.84 Long term (current) use of oral hypoglycemic drugs; W18.39XA Other fall on same level, initial encounter; Y93.01 Activity, walking, marching and hiking; Y92.414 Local residential or business street as the place of occurrence of the external cause; Y99.9 Unspecified external cause status; Z23 Encounter for immunization
CPT/HCPCS: 73562; 80053; 93005; 99285; 70450; 83880; 84443; 84484; 85025; 85610; 85730; 93010; 99284

== ENCOUNTER 2022-12-19 17:52 | Outpatient (REF) | payer OTHER, SELFPAY ==
[2022-12-19 18:49] LABS: Magnesium 1.8 mg/dL (1.8-2.4)
== END 2022-12-19 17:53 | disposition home or self-care (01) ==
LOC: NCHCN 17:52
PROVIDERS: PCP Family Medicine; Visit Provider Family Medicine
DX: R06.09 Other forms of dyspnea (principal); I45.81 Long QT syndrome; I10 Essential (primary) hypertension
CPT/HCPCS: 83735

== ENCOUNTER → 2022-12-30 15:54 | Outpatient (CLI) | payer OTHER, SELFPAY ==
--- NOTE | 2022-12-30 | DI.RAD_ITS ---
Exam(s) XR CHEST 2V PA LATERAL EXAM: XR CHEST 2V PA LATERAL CLINICAL HISTORY: PRODUCTIVE COUGH,PURULENT SPUTUM-R05.8-DYSPNEA ON EXERTION, R06.09. TECHNIQUE: 2D digital imaging was performed. COMPARISON: No exams were available for comparison FINDINGS: 2 views: Heart size is normal. The mediastinum is not widened. Lungs are clear. No infiltrates nor pleural effusions. IMPRESSION: No acute pulmonary findings. DATA REPOSITORY: RADIATION DOSE DELIVERED:
== END ==
PROVIDERS: PCP Family Medicine; Visit Provider Nurse Practitioner Family
DX: R05.8 Other specified cough (principal); R06.09 Other forms of dyspnea
CPT/HCPCS: 71046

== ENCOUNTER → 2023-01-06 00:38 | Outpatient (CLI) | payer OTHER, SELFPAY ==
--- NOTE | 2023-01-06 08:45 | DI.NM_ITS ---
APPROVED REPORT Exam: Pharmacologic Patient Location: Out-Patient Room/Bed: Stress Nurse: Aisha Kelly RN Ordering Provider:EAMON COLON, Contact Number: BMI: 38.73 Baseline Rhythm: Sinus Rhythm, LBBB Indications: ALEJO, DM, Smoker, Progressive dyspnea Medical History Medical History: Chronic headache, LBBB, Abd pain, adjustment disorder with anxious mood, anxiety ass ociated with depression, COVID19, Fibromyalgia, GERD, HTN, HLD, BERTA, Tobacco dependence, DM2 Cardiac Medications: Vitamin B, Compazine, Prochlorperazine, pregabalin, pantoprazole, omeprazole, me tformin, losartan, hydroxyzine, dulaglutide, colestipol, Vitamin D3, Atorvastatin, Amlodipine, Amitri ptyline Allergies: Latex, Penicillins, Duloxetine Cardiac Risk Factors: Family Hx, HTN, HLD, DM, Smoker, Asthma, Obesity Previous Cardiac Procedures: Angiogram 15 years ago Pretest Chest Pain Characteristics: None Exercise History: Sedentary Physical Disabilities: None Lung Sounds: Clear to auscultation Heart Sounds: Regular Stress Test Details Test: Pharmacologic stress was paired with low level exercise. Nuclear Acquisition: Rest Tc-99m/Stress Tc-99m 1 day Rest Isotope: Tc-99m Sestamibi. Dose: 11.8 Date: 01/06/2023 Injection Time: 0845 Stress Isotope: Tc-99m Sestamibi. Dose: 36 Date: 01/06/2023 Injection Time: 1015 HR Resting HR Supine: 66 bpm Max Heart Rate (APMHR): 164.449107 bpm Resting HR Standin bpm Target HR (85% APMHR): 139.680415 bpm Max HR Achieved: 78 bpm % of APMHR: 47.56 Recovery HR: 84 bpm BP Resting BP Supine: 124/76 mmHg Resting BP Standin/68 mmHg Max BP: 128/60 mmHg Recovery BP: 124/72 mmHg ECG Resting ECG: Sinus Rhythm, LBBB Ectopy: none Stress ECG: Sinus Rhythm, LBBB ST Change: No significant ST segment changes noted Arrhythmia: None Recovery ECG: Sinus Rhythm, LBBB Recovery ST Change: No significant ST segment changes noted Recovery Arrhythmia: None Clinical Rate Pressure Product: 9984 Stress ECG Conclusion 1. Resting electrocardiogram showed a left bundle branch block 2. Patient underwent testing using pharmacologic stress with regadenoson 3. Peak heart rate achieved was 48% of predicted for age 4. The electrocardiographic portion of the test was nondiagnostic 5. See MPI report Stress Test Summary STAGE HR BP SpO2 Symptoms NOTES Supine 66 124/76 Standing 72 108/68 1 min post Lexiscan injection 108 128/60 SOB, Dizzy, PINTO 3 min post Lexiscan injection 94 126/58 Chest tightness 3/10 6 min post Lexiscan injection 84 124/72 PINTO remains, other symptopms resolved MPI Conclusion Myocardial perfusion appears normal. There is no ischemia or evidence of prior infarction Calculated EF is 41% but appears visually higher. Wall motion looks normal Radiologist Interpretation Radiologist Interpretation by: Betito Devine MD Interpretation Date/Time: 01/06/2023 18:06:24
[2023-01-06] MEDS: Regadenoson 0.4 MG/5 ML SYR IVP (09:52)
== END ==
PROVIDERS: PCP Family Medicine; Visit Provider Family Medicine
DX: I44.7 Left bundle-branch block, unspecified (principal)
CPT/HCPCS: 78452; 93017; J2785

== ENCOUNTER 2023-01-09 18:09 | Outpatient (REF) | payer OTHER, SELFPAY ==
[2023-01-09 19:20] LABS: NT-proBNP 114 pg/mL (<300)
== END 2023-01-09 18:10 | disposition home or self-care (01) ==
LOC: NCHCN 18:09
PROVIDERS: PCP Family Medicine; Visit Provider Family Medicine
DX: R06.09 Other forms of dyspnea (principal)
CPT/HCPCS: 83880

== ENCOUNTER → 2023-02-14 01:54 | Outpatient (CLI) | payer OTHER, SELFPAY ==
--- NOTE | 2023-02-14 07:30 | DI.US_ITS ---
APPROVED REPORT EXAM: Comprehensive 2D, Doppler, and color-flow Echocardiogram Patient Location: Out-Patient Senior Recruitment Consultant: Shireen Lambert RDCS (AE) Indications: Dyspnea on exertion, smoker, DM, Diminished EF Other Information Study Quality: Adequate. Technically limited study due to body habitus, smoker. Conclusion Normal left ventricular wall thickness and chamber size. Ejection fraction is 40 to 45%. Septal mot ion is consistent with an intraventricular conduction delay Normal right ventricular size and systolic function Both atria are normal in size There is no structural or hemodynamically significant valvular disease Right ventricular systolic pressure could not be estimated Wall motion Left Ventricle The left ventricle is normal size. Left ventricular systolic function is mildly decreased. Mild lydia ntric left ventricular hypertrophy. Septal motion suggesting IVCD There is no ventricular septal defe ct visualized. LVEF is 43%. Right Ventricle The right ventricle is normal size. The right ventricular systolic function is normal. Atria The left atrium size is normal. The right atrium size is normal. The interatrial septum is intact wit h no evidence for an atrial septal defect. Aortic Valve The aortic valve is normal in structure. There is no aortic valvular stenosis. No aortic regurgitatio n is present. Mitral Valve The mitral valve is normal in structure. No evidence of mitral valve stenosis. Trace to mild mitral r egurgitation. Tricuspid Valve The tricuspid valve is normal in structure. There is no tricuspid valve stenosis. Trace tricuspid re gurgitation. Unable to assess PA pressure. Pulmonic Valve The pulmonary valve is normal in structure. There is no pulmonic valvular stenosis. There is no pulmo hesham valvular regurgitation. Great Vessels The aortic root is normal in size. The ascending aorta is normal in size. Aortic arch is normal in ca liber. The IVC was not well visualized. Pericardium Prominent anterior epicardial fat pad is present. 2D Dimensions IVSD d PLAX 1.15 cm F: 0.6-1.0 Ao Root d 3.11 cm F: 2.7 - 3.3 LVPW d PLAX 1.12 cm F: 0.6 - 1.0 Ao Asc Diam d 2.95 cm F: 2.3 - 3.1 LVID d PLAX 4.77 cm F: 3.8 - 5.2 LVDs 3.67 cm F: 2.2 - 3.5 LV EF Teichholz 46.0 % FS 22.94 % LV EDV (Teich) 105.7 mL LV ESV (Teich) 57.1 mL M-Mode TAPSE 1.96 cm (M/F) >1.7 Auto EF LV EDV A4C 118.7 mL LV EDV A2C 119.2 mL LV EDV BP 118.1 mL LV ESV A4C 69.1 mL LV ESV A2C 67.9 mL LV ESV BP 67.0 mL LVEF(%) A4C 41.8 % LVEF(%) A2C 43.0 % LVEF(%) BP 43.2 % LV SV A4C 49.6 ml LV SV A2C 51.3 ml LV SV BP 51.1 ml LV CO A4C 3.8 L/min LV CO A2C 3.7 L/min LV CO BP 3.7 L/min HR A4C 75.63 BPM HR A2C 73.03 BPM LV EDV Index (BP) LA Volume LA Length A4C 5.3 cm LA Length A2C 4.9 cm LA Area A4C s 15.95 cm2 LA Area A2C s 14.63 cm2 LA Vol A4C A-L 40.96 mL LA Vol A2C A-L 36.84 mL LA Vol Biplane A-L 40.2 mL LA Vol/BSA A4C A-L LA Vol/BSA A2C A-L LA Vol/BSA BP A-L 19.3 mL/m2 LA Vol A4C MOD 38.2 mL LA Vol A2C MOD 34.3 mL LA Vol BP MOD 37.4 mL RA Volume RA Area A4C 10.7 cm2 RA ESV A4C (A-L) 21.3mL RA Vol/BSA A4C A-L RA Length A4C 4.6 cm RA ESV A4C (MOD) 21.3mL LV Diastology MV E' medial 0.057 (>0.07 m/s) MV E Vmax 0.81 (0.4-1.3 m/s) MV E/E' MED 14.10 (<14) MV A Vmax 1.00 (0.4-1.3 m/s) MV E' lateral 0.079 (>0.1 m/s) E/A Ratio 0.8 MV E/E' LAT 10.14 (<14) MV E' Average 0.068 m/s MV E/E'(average) 11.80 Aortic Valve AoV Vmax 1.45 m/s LVOT Vmax 1.03 m/s AoV Peak Grad 8.4 mmHg LVOT Peak Grad 4.3 mmHg AoV Area (Vmax) 2.27 cm2 LVOT VTI 0.208 m AoV VTI 0.290 m LVOT Mean Grad 2.5 mmHg AoV Mean Jose. 1.03 m/s LVOT SV 65.86 mL AoV Mean Grad 4.8 mmHg LVOT Diam s 2.00 cm AoV Area (VTI) 2.27 cm2 Velocity Ratio 0.71 Mitral Valve MV DT 219 (160-240 msec) Pulmonary Valve PV Vmax 1.34 (0.5-1.5 m/s) RVOT Vmax 0.82 m/s PV Peak Grad 7.2 mmHg RVOT Peak Gr. 2.7 mmHg PV Mean Jose 0.83 m/s RVOT VTI 0.159 m PV Mean Grad 3.2 mmHg RVOT Mean Gr. 1.5 mmHg Tricuspid Valve RA Pressure 3.00 mmHg TV S' 0.10 m/s
== END ==
PROVIDERS: PCP Family Medicine; Visit Provider Family Medicine
DX: R06.09 Other forms of dyspnea (principal); F17.210 Nicotine dependence, cigarettes, uncomplicated
CPT/HCPCS: 93306

== ENCOUNTER 2023-03-06 09:25 | Outpatient (CLI) | payer OTHER, SELFPAY ==
--- NOTE | 2023-03-06 09:15 | RT.EKG_ITS ---
APPROVED REPORT Exam: Resting ECG Reason for Exam: syncope Patient Location: O HR:84 bpm ECG Measurements Heart Rate 84 AXIS OR 158 P 41 QRSd 161 QRS -11 QT 407 T 146 QTc 482 Conclusion Sinus rhythm...normal P axis, V-rate 50- 99 Probable left atrial enlargement...P >50mS, <-0.10mV V1 Left bundle branch block...QRSd>120, broad/notched R
== END 2023-03-06 09:26 | disposition home or self-care (01) ==
LOC: DI.CARD 09:26
PROVIDERS: PCP Family Medicine; Visit Provider Internal Medicine Cardiovascular Disease
DX: I42.9 Cardiomyopathy, unspecified (principal); I44.7 Left bundle-branch block, unspecified; R55 Syncope and collapse
CPT/HCPCS: 93010

== ENCOUNTER 2023-04-20 13:06 | Emergency (ER) | payer OTHER, SELFPAY ==
[2023-04-20 13:08] VITALS: BP 125/76; PULSE 92; RESP 18; TEMP 36.4; O2SAT 98
[2023-04-20 13:31] VITALS: BP 125/76; PULSE 92; RESP 18; TEMP 35.6
--- OUTSIDE RECORDS SUMMARY | 2023-04-20 13:37 | XMS_ITS | Continuity of Care Document ---
Author Name Unknown Organization [facility] Address [address] [place] [address] Care Team Providers Care Formstone Fitter Name Role Phone EAMON COLON Primary Care Physician Encounter [facility]TTL_NM FIN NBR [id number] Date(s): 03/27/22 - 03/27/[address] [id number] Encounter Diagnosis Chronic diarrhea(Discharge Diagnosis) - 03/27/22 Lower abdominal pain(Discharge Diagnosis) - 03/27/22 Discharge Disposition: Home or Self Care Attending Physician: Twan Orellana MD Admitting Physician: Twan Orellana MD Referring Physician: Twan Orellana MD Allergies, Adverse Reactions, Alerts Substance Reaction Severity Status penicillin Throat swelling Severe Active Cymbalta Syncope Severe Active Latex Rash Severe Active Assessment and Plan Future Appointments Diagnostic Tests Pending * Pathology Request 03/27/22 Functional Status 03/27/22 ADLs Independent Other exposure to Infectious Disease Non e 03/18/22 Living Situation Home independently Medications amLODIPine 5 mg oral tablet 5 mg = 1 tab, Oral, Daily, # 90 tab, 0 Refill(s) Start Date: 03/18/22 Status: Ordered Lipitor 40 mg oral tablet 40 mg = 1 tab, Oral, Daily, # 30 tab, 0 Refill(s) Start Date: 03/18/22 Status: Ordered loperamide 2 mg oral tablet, chewable 2 mg 1 tab, Chewed, BID, PRN as needed for loose stool, # 20 tab, 0 Refill(s) Start Date: 03/18/22 Status: Ordered losartan 25 mg oral tablet 25 mg = 1 tab, Oral, Daily, # 30 tab, 0 Refill(s) Start Date: 03/18/22 Status: Ordered Lyrica 75 mg oral capsule 75 mg = 1 cap, Oral, BID, # 180 cap, 0 Refill(s) Start Date: 03/18/22 Status: Ordered metFORMIN 500 mg oral tablet 500 mg = 1 tab, Oral, Daily, with meals, # 30 tab, 0 Refill(s) Start Date: 03/18/22 Status: Ordered pantoprazole 40 mg oral delayed release tablet 40 mg = 1 tab, Oral, Daily, # 30 tab, 0 Refill(s) Start Date: 03/18/22 Status: Ordered SEROquel 25 mg oral tablet 25 mg = 1 tab, Oral, every evening, # 90 tab, 0 Refill(s) Start Date: 03/18/22 Status: Ordered traZODone 100 mg oral tablet 100 mg = 1 tab, Oral, every evening, # 60 tab, 0 Refill(s) Start Date: 03/18/22 Status: Ordered Trulicity Pen 0.75 mg/0.5 mL subcutaneous solution See Instructions, 0.5 mL Subcutaneous every week, 0 Refill(s) Start Date: 03/18/22 Status: Ordered Problem List Condition Confirmation Course Effective Dates Status H ealth Status Informant Arthritis 1 Confirmed Active 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 States she is seeing neuro soon to evaluate for possible long covid sx (tremor) Procedures Procedure Date Related Diagnosis Body Site Status Colonoscopy Biopsy 1 03/27/22 Comp leted EGD - Esophagogastroduodenoscopy 12/26/21 Completed Cholecystectomy 2 Complet ed Colonoscopy Completed Dilation and curettage Co mpleted ERCP 3 Completed Hysterectomy Completed 1auto-populated from documented surgical case Vital Signs Most recent to oldest [Reference Range]: 1 2 3 Temperature Temporal Artery [36-38 Deg C] 36.4 Deg C (03/27/22 8:30 AM) 36.4 Deg C (03/27/22 7:50 AM) 36.1 Deg C (03/27/22 6:45 AM) Temperature Temporal Artery (DegF) [97.3-100 Deg F] 97.52 Deg F (03/27/22 7:50 AM) Peripheral Pulse Rate [60-100 bpm] 78 bpm (03/27/22 8:15 AM) 75 bpm (03/27/22 8:00 AM) 76 bpm (03/27/22 7:50 AM) Respiratory Rate [12-24 br/min] 16 br/min (03/27/22 6:45 AM) Blood Pressure [90-140/60-90 mmHg] 116/77mmHg (03/27/22 8:15 AM) 116/73mmHg (03/27/22 8:00 AM) 123/79mmHg (03/27/22 7:50 AM) Mean Arterial Pressure, Cuff [65-140 mmHg] 90 mmHg (03/27/22 8:15 AM) 87 mmHg (03/27/22 8:00 AM) 94 mmHg (03/27/22 7:50 AM) Mean Arterial Pressure Cuff 89 mmHg (03/27/22 8:15 AM) 85 mmHg (03/27/22 8:00 AM) 93 mmHg (03/27/22 7:50 AM) Weight 99.790 kg (03/18/22 4:27 PM) Weight Dosing 99.790 kg (03/18/22 4:27 PM) Height 167.640 cm (03/18/22 4:27 PM) Height/Length Dosing 167.640 cm (03/18/22 4:27 PM) Social History Social History Type Response Tobacco Current everyday tob acco user Tobacco Use:. Sex Hospital Discharge Instructions Patient Education 03/27/2022 06:55:43 Colon Polyps Colon Polyps Colon polyps are tissue growths inside the colon, which is part of the large intestine. They are one of the types of polyps that can grow in the body. A polyp may be a round bump or a mushroom-shapedgrowth. You could have one polyp or more than one. Most colon polyps are noncancerous (benign). However, some colon polyps can become cancerous over time. Finding and removing the polyps early can help prevent this. What are the causes? The exact cause of colon polyps is not known. What increases the risk? The following factors may make you more likely to develop this condition: ??? Having a family history of colorectal cancer or colon polyps. ??? Being older than 45 years of age. ??? Being younger than 45 years of age and having a significant family history of colorectal canceror colon polyps or a genetic condition that puts you at higher risk of getting colon polyps. ??? Having inflammatory bowel disease, such as ulcerative colitis or Crohn's disease. ??? Having certain conditions passed from parent to child (hereditary conditions), such as: ??? Familial adenomatous polyposis (FAP). ??? Ludwig syndrome. ??? Turcot syndrome. ??? Peutz???Jeghers syndrome. ??? MUTYH-associated polyposis (MAP). ??? Being overweight. ??? Certain lifestyle factors. These include smoking cigarettes, drinking too much alcohol, not getting enough exercise, and eating a diet that is high in fat and red meat and low in fiber. ??? Having had childhood cancer that was treated with radiation of the abdomen. What are the signs or symptoms? Many times, there are no symptoms. If you have symptoms, they may include: ??? Blood coming from the rectum during a bowel movement. ??? Blood in the stool (feces). The blood may be bright red or very dark in color. ??? Pain in the abdomen. ??? A change in bowel habits, such as constipation or diarrhea. How is this diagnosed? This condition is diagnosed with a colonoscopy. This is a procedure in which a lighted, flexible scope is inserted into the opening between the buttocks (anus) and then passed into the colon to examine the area. Polyps are sometimes found when a colonoscopy is done as part of routine cancer screening tests. How is this treated? This condition is treated by removing any polyps that are found. Most polyps can be removed during a colonoscopy. Those polyps will then be tested for cancer. Additional treatment may be needed depending on the results of testing. Follow these instructions at home: Eating and drinking ??? Eat foods that are high in fiber, such as fruits, vegetables, and whole grains. ??? Eat foods that are high in calcium and vitamin D, such as milk, cheese, yogurt, eggs, liver, fish, and broccoli. ??? Limit foods that are high in fat, such as fried foods and desserts. ??? Limit the amount of red meat, precooked or cured meat, or other processed meat that you eat, such as hot dogs, sausages, dodson, or meat loaves. ??? Limit sugary drinks. Lifestyle ??? Maintain a healthy weight, or lose weight if recommended by your health care provider. ??? Exercise every day or as told by your health care provider. ??? Do not use any products that contain nicotine or tobacco, such as cigarettes, e-cigarettes, andchewing tobacco. If you need help quitting, ask your health care provider. ??? Do not drink alcohol if: ??? Your health care provider tells you not to drink. ??? You are , may be , or are planning to become . ??? If you drink alcohol: ??? Limit how much you use to: ??? 0???1 drink a day for women. ??? 0???2 drinks a day for men. ??? Know how much alcohol is in your drink. In the [place] one drink equals one 12 oz bottle of beer (355 mL), one 5 oz glass of wine (148 mL), or one 1?? oz glass of hard liquor (44 mL). General instructions ??? Take odmu-mkv-rabbmim and prescription medicines only as told by your health care provider. ??? Keep all follow-up visits. This is important. This includes having regularly scheduled colonoscopies. Talk to your health care provider about when you need a colonoscopy. Contact a health care provider if: ??? You have new or worsening bleeding during a bowel movement. ??? You have new or increased blood in your stool. ??? You have a change in bowel habits. ??? You lose weight for no known reason. Summary ??? Colon polyps are tissue growths inside the colon, which is part of the large intestine. They are one type of polyp that can grow in the body. ??? Most colon polyps are noncancerous (benign), but some can become cancerous over time. ??? This condition is diagnosed with a colonoscopy. ??? This condition is treated by removing any polyps that are found. Most polyps can be removed during a colonoscopy. This information is not intended to replace advice given to you by your health care provider. Make sure you discuss any questions you have with your health care provider. Document Revised: 08/23/2020 Document Reviewed: 08/23/2020 [employer] Patient Education ?? 2021 [employer]. 03/27/2022 06:55:39 Colonoscopy, Adult, Care After Colonoscopy, Adult, Care After This sheet gives you information about how to care for yourself after your procedure. Your health care provider may also give you more specific instructions. If you have problems or questions, contact your health care provider. What can I expect after the procedure? After the procedure, it is common to have: ??? A small amount of blood in your stool for 24 hours after the procedure. ??? Some gas. ??? Mild cramping or bloating of your abdomen. Follow these instructions at home: Eating and drinking ??? Drink enough fluid to keep your urine pale yellow. ??? Follow instructions from your health care provider about eating or drinking restrictions. ??? Resume your normal diet as instructed by your health care provider. Avoid heavy or fried foods that are hard to digest. Activity ??? Rest as told by your health care provider. ??? Avoid sitting for a long time without moving. Get up to take short walks every 1???2 hours. This is important to improve blood flow and breathing. Ask for help if you feel weak or unsteady. ??? Return to your normal activities as told by your health care provider. Ask your health care provider what activities are safe for you. Managing cramping and bloating ??? Try walking around when you have cramps or feel bloated. ??? Apply heat to your abdomen as told by your health care provider. Use the heat source that your health care provider recommends, such as a moist heat pack or a heating pad. ??? Place a towel between your skin and the heat source. ??? Leave the heat on for 20???30 minutes. ??? Remove the heat if your skin turns bright red. This is especially important if you are unable to feel pain, heat, or cold. You may have a greater risk of getting burned. General instructions ??? If you were given a sedative during the procedure, it can affect you for several hours. Do not drive or operate machinery until your health care provider says that it is safe. ??? For the first 24 hours after the procedure: ??? Do not sign important documents. ??? Do not drink alcohol. ??? Do your regular daily activities at a slower pace than normal. ??? Eat soft foods that are easy to digest. ??? Take cvun-jbv-sreaexl and prescription medicines only as told by your health care provider. ??? Keep all follow-up visits as told by your health care provider. This is important. Contact a health care provider if: ??? You have blood in your stool 2???3 days after the procedure. Get help right away if you have: ??? More than a small spotting of blood in your stool. ??? Large blood clots in your stool. ??? Swelling of your abdomen. ??? Nausea or vomiting. ??? A fever. ??? Increasing pain in your abdomen that is not relieved with medicine. Summary ??? After the procedure, it is common to have a small amount of blood in your stool. You may also have mild cramping and bloating of your abdomen. ??? If you were given a sedative during the procedure, it can affect you for several hours. Do not drive or operate machinery until your health care provider says that it is safe. ??? Get help right away if you have a lot of blood in your stool, nausea or vomiting, a fever, or increased pain in your abdomen. This information is not intended to replace advice given to you by your health care provider. Make sure you discuss any questions you have with your health care provider. Document Revised: 04/28/2020 Document Reviewed: 2019 [employer] Patient Education ?? 2021 [employer]. Follow Up Care 03/08/2022 12:56:28 With:Return to this practice Address:Unknown When:1 month Discharge instructions * Josiane Almazan: PERFORM Event Display: Discharge Instructions Authored Date: [id number] POLY ARVIZU :1965 Age:56 years Sex:Female Visit Date:03/27/2022 Primary Care Physician: EAMON COLON Hospital Discharge Instructions We would like to thank you for allowing us to assist you with your healthcare needs. The following includes patient education materials and information regarding your injury/illness. After you leave the hospital, you may get your health information including your test results, physician notes and discharge information by accessing your Patient Portal. Your Next Steps Discharge Orders Discharge Patient Instructions, Call with any additional questions or concerns Discharge Patient Instructions, Call or come to emergency department for dizziness Discharge Patient Instructions, Call or come to emergency department chest pain, or shortness of breath Discharge Patient Instructions, Call or come to emergency department for fever greater than 100 ??F Discharge Patient Instructions, You should not be responsible for the care of others Discharge Patient Instructions, Do not sign any contracts, make any major decisions, or drive or operate machinery for 24 hours Discharge Patient Instructions, A light first meal may feel better in your stomach Discharge Patient Instructions, It is important that a responsible adult drive you home today Discharge Patient Instructions, Call or come to emergency department if vomiting blood or having black bowel movements, rectal bleeding or passing blood clots Discharge Patient Instructions, Passing gas rectally and belching is normal Discharge Patient Instructions, Cramping and abdominal bloating should subside in 1 hour or so Discharge Patient Instructions, Call or come to emergency department if having unusual pain or severe abdominal pain Discharge Patient Instructions, You may experience some gas cramps and abdominal bloating Discharge Patient Instructions, Avoid alcohol, tranquilizers, sleeping pills, or cold medicines for24 hours Discharge Patient Instructions, You may resume your normal diet and activity in 24 hours Scheduled Future Appointments Friday 9:30 AM EST ?? Follow Up Appointments Follow Up with??Return to this practice When:??Within 1 month Medications What How Much When Instructions Next Dose Unchanged amLODIPine (amLODIPine 5 mg oral tablet) 1 tab Oral (given by mouth) Every day Unchanged atorvastatin (Lipitor 40 mg oral tablet) 1 tab Oral (given by mouth) Every day Unchanged dulaglutide (Trulicity Pen 0.75 mg/ 0.5 mL subcutaneous solution) See instructions 0.5 mL Subcutaneous every week ?? Unchanged loperamide (loperamide 2 mg oral tablet, chewable) 1 tab Chewed 2 times a day as needed for as needed for loose stool Unchanged losartan (losartan 25 mg oral tablet) 1 tab Oral (given by mouth) Every day Unchanged metFORMIN (metFORMIN 500 mg oral tablet) 1 tab Oral (given by mouth) Every day with meals ?? Unchanged pantoprazole (pantoprazole 40 mg oral delayed release tablet) 1 tab Oral (given by mouth) Every day Unchanged pregabalin (Lyrica 75 mg oral capsule) 1 Capsules Oral (given by mouth) 2 times a day Unchanged QUEtiapine (SEROquel 25 mg oral tablet) 1 tab Oral (given by mouth) Every evening Unchanged traZODone (traZODone 100 mg oral tablet) 1 tab Oral (given by mouth) Every evening Your Summary Your Care Team Admitting Physician - Twan Orellana MD Attending Physician - Twan Orellana MD Primary Care Physician - EAMON COLON Referring Physician - Twan Orellana MD Your Diagnosis Chronic diarrhea Lower abdominal pain Problems Ongoing - Any problem that you are currently receiving treatment for. 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 16 Blood Pressure?? 123/79?? Allergies Cymbalta??(Syncope) Latex??(Rash) penicillin??(Throat swelling) Education Materials Colon Polyps Colon polyps are tissue growths inside the colon, which is part of the large intestine. They are one of the types of polyps that can grow in the body. A polyp may be a round bump or a mushroom-shapedgrowth. You could have one polyp or more than one. Most colon polyps are noncancerous (benign). However, some colon polyps can become cancerous over time. Finding and removing the polyps early can help prevent this. What are the causes? The exact cause of colon polyps is not known. What increases the risk? The following factors may make you more likely to develop this condition: ? Having a family history of colorectal cancer or colon polyps. ? Being older than 45 years of age. ? Being younger than 45 years of age and having a significant family history of colorectal cancer or colon polyps or a genetic condition that puts you at higher risk of getting colon polyps. ? Having inflammatory bowel disease, such as ulcerative colitis or Crohn's disease. ? Having certain conditions passed from parent to child (hereditary conditions), such as: ? Familial adenomatous polyposis (FAP). ? Ludwig syndrome. ? Turcot syndrome. ? Peutz???Jeghers syndrome. ? MUTYH-associated polyposis (MAP). ? Being overweight. ? Certain lifestyle factors. These include smoking cigarettes, drinking too much alcohol, not gettingenough exercise, and eating a diet that is high in fat and red meat and low in fiber. ? Having had childhood cancer that was treated with radiation of the abdomen. What are the signs or symptoms? Many times, there are no symptoms. If you have symptoms, they may include: ? Blood coming from the rectum during a bowel movement. ? Blood in the stool (feces). The blood may be bright red or very dark in color. ? Pain in the abdomen. ? A change in bowel habits, such as constipation or diarrhea. How is this diagnosed? This condition is diagnosed with a colonoscopy. This is a procedure in which a lighted, flexible scope is inserted into the opening between the buttocks (anus) and then passed into the colon to examine the area. Polyps are sometimes found when a colonoscopy is done as part of routine cancer screening tests. How is this treated? This condition is treated by removing any polyps that are found. Most polyps can be removed during a colonoscopy. Those polyps will then be tested for cancer. Additional treatment may be needed depending on the results of testing. Follow these instructions at home: Eating and drinking ? Eat foods that are high in fiber, such as fruits, vegetables, and whole grains. ? Eat foods that are high in calcium and vitamin D, such as milk, cheese, yogurt, eggs, liver, fish, and broccoli. ? Limit foods that are high in fat, such as fried foods and desserts. ? Limit the amount of red meat, precooked or cured meat, or other processed meat that you eat, such as hot dogs, sausages, dodson, or meat loaves. ? Limit sugary drinks. Lifestyle ? Maintain a healthy weight, or lose weight if recommended by your health care provider. ? Exercise every day or as told by your health care provider. ? Do not use any products that contain nicotine or tobacco, such as cigarettes, e- cigarettes, and chewing tobacco. If you need help quitting, ask your health care provider. ? Do not drink alcohol if: ? Your health care provider tells you not to drink. ? You are , may be , or are planning to become . ? If you drink alcohol: ? Limit how much you use to: ? 0???1 drink a day for women. ? 0???2 drinks a day for men. ? Know how much alcohol is in your drink. In the [place] one drink equals one 12 oz bottle of beer (355mL), one 5 oz glass of wine (148 mL), or one 1?? oz glass of hard liquor (44 mL). General instructions ? Take aywz-eqg-vnhkvcc and prescription medicines only as told by your health care provider. ? Keep all follow-up visits. This is important. This includes having regularly scheduled colonoscopies. Talk to your health care provider about when you need a colonoscopy. Contact a health care provider if: ? You have new or worsening bleeding during a bowel movement. ? You have new or increased blood in your stool. ? You have a change in bowel habits. ? You lose weight for no known reason. Summary ? Colon polyps are tissue growths inside the colon, which is part of the large intestine. They are one type of polyp that can grow in the body. ? Most colon polyps are noncancerous (benign), but some can become cancerous over time. ? This condition is diagnosed with a colonoscopy. ? This condition is treated by removing any polyps that are found. Most polyps can be removed during a colonoscopy. This information is not intended to replace advice given to you by your health care provider. Make sure you discuss any questions you have with your health care provider. Document Revised: 08/23/2020 Document Reviewed: 08/23/2020 [employer] Patient Education ?? 2021 [employer] Colonoscopy, Adult, Care After This sheet gives you information about how to care for yourself after your procedure. Your health care provider may also give you more specific instructions. If you have problems or questions, contact your health care provider. What can I expect after the procedure? After the procedure, it is common to have: ? A small amount of blood in your stool for 24 hours after the procedure. ? Some gas. ? Mild cramping or bloating of your abdomen. Follow these instructions at home: Eating and drinking ? Drink enough fluid to keep your urine pale yellow. ? Follow instructions from your health care provider about eating or drinking restrictions. ? Resume your normal diet as instructed by your health care provider. Avoid heavy or fried foods thatare hard to digest. Activity ? Rest as told by your health care provider. ? Avoid sitting for a long time without moving. Get up to take short walks every 1???2 hours. This isimportant to improve blood flow and breathing. Ask for help if you feel weak or unsteady. ? Return to your normal activities as told by your health care provider. Ask your health care provider what activities are safe for you. Managing cramping and bloating ? Try walking around when you have cramps or feel bloated. ? Apply heat to your abdomen as told by your health care provider. Use the heat source that your health care provider recommends, such as a moist heat pack or a heating pad. ? Place a towel between your skin and the heat source. ? Leave the heat on for 20???30 minutes. ? Remove the heat if your skin turns bright red. This is especially important if you are unable to feel pain, heat, or cold. You may have a greater risk of getting burned. General instructions ? If you were given a sedative during the procedure, it can affect you for several hours. Do not drive or operate machinery until your health care provider says that it is safe. ? For the first 24 hours after the procedure: ? Do not sign important documents. ? Do not drink alcohol. ? Do your regular daily activities at a slower pace than normal. ? Eat soft foods that are easy to digest. ? Take [id number] and prescription medicines only as told by your health care provider. ? Keep all follow-up visits as told by your health care provider. This is important. Contact a health care provider if: ? You have blood in your stool 2???3 days after the procedure. Get help right away if you have: ? More than a small spotting of blood in your stool. ? Large blood clots in your stool. ? Swelling of your abdomen. ? Nausea or vomiting. ? A fever. ? Increasing pain in your abdomen that is not relieved with medicine. Summary ? After the procedure, it is common to have a small amount of blood in your stool. You may also have mild cramping and bloating of your abdomen. ? If you were given a sedative during the procedure, it can affect you for several hours. Do not drive or operate machinery until your health care provider says that it is safe. ? Get help right away if you have a lot of blood in your stool, nausea or vomiting, a fever, or increased pain in your abdomen. This information is not intended to replace advice given to you by your health care provider. Make sure you discuss any questions you have with your health care provider. Document Revised: 04/28/2020 Document Reviewed: 2019 [employer] Patient Education ?? 2021 [employer]. Patient Name:POLY ARVIZU I have received this information and my questions have been answered. Patient/Field Operator Name: Patient/Field Operator Signature: Relationship to Patient: Witness Name/Signature: Date: Electronically Signed on: 03/27/2022 08:10 ESTSigned by:DP * Event Display: Discharge Instructions History and physical note * Event Display: History and Physical Update * Twan Orellana MD: PERFORM Event Display: History and Physical Authored Date: [id number] POLY ARVIZU :1965 Age:56 years Sex:Female Visit Date:03/27/2022 Primary Care Physician: EAMON COLON History of Present Illness ?? Patient is a 56-year-old female here today at the request of Dr. Amaya for abdominal pain with a history of gallstones and a stone in her common bile duct. He is here today as an established patientfor follow-up of EGD. Patient had a cholecystectomy on 08/29/2021 and on 11/07/2021 she had severe right upper quadrant pain and a MRCP, followed by ERCP that retrieved a stone in the common bile duct. On 11/12/2021 CT scan was normal at that time patient was continued to complain of right upper quadrant pain. Patient reports having right upper quadrant pain starting in July did not seek medical care until August. She is continued with right upper quadrant and epigastric pain since the above procedures. She has been on omeprazole 40 mg daily for approximately 10 years for GERD. She states this has provided relief. Denies any pyrosis or dyspepsia. Does have nausea and vomiting used to be 5-6 times per week now is 3-4 times per week. The one thing that helps her with right upper quadrant pain is Percocet. This is helping her with diarrhea since cholecystectomy. She is on Questran powder 4 g daily and she was having 3-6 bowel movements daily. Continues to feel bloated. Continues with some nausea that has improved. Rarely vomits.Weight is stable. She is actually gained 2 pounds. However her weight is still down approximately 28 pounds since July. Appetite is diminished. He uses Zofran once daily. Eats a bland diet.?? Stool test for C. difficile was negative. She is taking Questran powder 4 g daily. 12/27/2021 EGD was normal with biopsies showing no celiac disease, or H. pylori infection. There wasreactive chemical gastropathy. Denies NSAID use. Patient was scheduled for colonoscopy on 02/14/2022??which was canceled??since the patient reported??inadequate preparation following standard colonoscopy purge.?? She now returns after extended preparation. Review of Systems Negative Physical Exam Vitals & Measurements T:??36.1?C ??(Temporal Artery)?? HR:??90??(Peripheral)?? RR:??16?? BP:??131/76?? SpO2:??100%?? O2 Therapy:??Room air?? Obese white female no acute distress Lungs: Clear to auscultation bilaterally Heart: Regular rhythm S1-S2 Abdomen: Soft nontender Assessment/Plan 1.??Chronic diarrhea??K52.9 Colonoscopy to rule out colitis. ??She is otherwise at average risk for colorectal cancer. 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 COVID-19 Diabetes mellitus Diarrhea GERD - Gastro-esophageal reflux disease HLD - Hyperlipidemia BERTA - Obstructive sleep apnea Trochanteric bursitis Historical No qualifying data Procedure/Surgical History ???EGD - Esophagogastroduodenoscopy (12/27/2021)???Cholecystectomy???Colonoscopy???Dilation and cure ttage???ERCP???Hysterectomy Medications Inpatient No active inpatient medications Home amLODIPine 5 mg oral tablet, 5 mg= 1 tab, Oral, Daily Lipitor 40 mg oral tablet, 40 mg= 1 tab, Oral, Daily loperamide 2 mg oral tablet, chewable, 2 mg= 1 tab, Chewed, BID, PRN losartan 25 mg oral tablet, 25 mg= 1 tab, Oral, Daily Lyrica 75 mg oral capsule, 75 mg= 1 cap, Oral, BID metFORMIN 500 mg oral tablet, 500 mg= 1 tab, Oral, Daily pantoprazole 40 mg oral delayed release tablet, 40 mg= 1 tab, Oral, Daily SEROquel 25 mg oral tablet, 25 mg= 1 tab, Oral, every evening traZODone 100 mg oral tablet, 100 mg= 1 tab, Oral, every evening Trulicity Pen 0.75 mg/0.5 mL subcutaneous solution, See Instructions Allergies Cymbalta??(Syncope) Latex??(Rash) penicillin??(Throat swelling) Social History Electronic Cigarette/Vaping Electronic Cigarette Use: Never. Substance Use Current, 1-2 times per month- Comments: oral CBD or THC Tobacco Current everyday tobacco user Tobacco Use:. Electronically Signed on 03/27/22 07:02 AM Twan Orellana MD Patient Care team information Care Team Personnel Name: EAMON COLON Position: No Access Member Role: Primary Care Physician Address: Address: [address] [place] [id number]- Care Team Related Persons Name: RAMÓN ARVIZU Address: Home [address] [place] [address] [place] [id number] [facility]
--- OUTSIDE RECORDS SUMMARY | 2023-04-20 13:37 | XMS_ITS | Continuity of Care Document ---
Author Name Unknown Organization [facility] Address [address] [place] [address] Care Team Providers Care Film Flat Inspector Name Role Phone EAMON LALA Primary Care Physician Encounter [facility] NBR [id number] Date(s): 04/10/22 - 04/10/22 [facility] [address] [place], [place] [address] Encounter Diagnosis Diarrhea(Discharge Diagnosis) - 04/10/22 S/P cholecystectomy(Discharge Diagnosis) - 04/10/22 Discharge Disposition: Home or Self Care Attending Physician: Dagmar Villatoro APRN Allergies, Adverse Reactions, Alerts Substance Reaction Severity Status penicillin Throat swelling Severe Active Cymbalta Syncope Severe Active Latex Rash Severe Active Assessment and Plan Future Appointments Functional Status 04/10/22 Other exposure to Infectious Disease Non e Medications amLODIPine 5 mg oral tablet 5 mg = 1 tab, Oral, Daily, # 90 tab, 0 Refill(s) Start Date: 03/18/22 Status: Ordered colestipol 1 g oral tablet 2 g = 2 tab, Oral, BID, with a full glass of water, # 120 tab, 3 Refill(s), Pharmacy: [facility] ([facility] 167.64, cm, 03/18/22 16:54:00 EDT, Height/Length Dosing, 99.79, kg, 03/18/2216:54:00 EDT, Weight Dosing Start Date: 04/10/22 Stop Date: 08/08/22 Status: Ordered Imodium 2 mg oral capsule 0 Refill(s) Start Date: 04/10/22 Status: Ordered Iron 100 Plus oral tablet 0 Refill(s) Start Date: 04/10/22 Status: Ordered Lipitor 40 mg oral tablet [...] 0 Refill(s) Start Date: 03/18/22 Status: Ordered Vitamin B12 50 mcg oral tablet 50 mcg = 1 tab, Oral, Daily, # 90 tab, 0 Refill(s) Start Date: 04/10/22 Status: Ordered Problem List Condition Confirmation Course Effective Dates Status H ealth Status Informant Arthritis 1 Confirmed Active 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 2 Confirmed Active Cobalamin deficiency Confirmed Active COVID-19 3 Confirmed Active Diabetes mellitus Confirmed Active Diarrhea Confirmed Active Diarrhea Confirmed Active Disorder of immune function Confirmed Active Gastroesophageal reflux disease Confirmed Active GERD - Gastro-esophageal reflux disease Confirmed Active History of cholecystectomy Confirmed Active S/P cholecystectomy Confirmed Active HLD - Hyperlipidemia Confirmed Active Keloid scar Confirmed Active Morbid obesity Confirmed Active Multiple joint pain Confirmed Active Muscle pain Confirmed Active Obstructive sleep apnea syndrome Confirmed Active BERTA - Obstructive sleep apnea Confirmed Active Paresthesia Confirmed Active Peripheral neuralgia Confirmed Active Trochanteric bursitis Confirmed Active Vitamin D deficiency Confirmed Active 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 [...] Most recent to oldest [Reference Range]: 1 Temperature Temporal Artery [36-38 Deg C ] 35.7 Deg C *LOW* (04/10/22 9:37 AM) Respiratory Rate [12-24 br/min] 20 br/mi n (04/10/22 9:37 AM) Blood Pressure [90-140/60-90 mmHg] 128/8 0mmHg (04/10/22 9:37 AM) Weight 100.9 kg (04/10/22 9:37 AM) Weight Measured (lbs) 222.446 lb (04/10/22 9:37 AM) [place] Body Weight Calculated 59.3 kg (04/10/22 9:37 AM) Height 167.64 cm (04/10/22 9:37 AM) Height/Length Measured (inches) 66 inch (04/10/22 9:37 AM) BSA Measured 2.17 m2 (04/10/22 9:37 AM) Body Mass Index 35.9 kg/m2 (04/10/22 9:37 AM) Social History Social History Type Response Tobacco Current everyday tob acco user Tobacco Use:. Sex Physician Outpatient Note * Dagmar Villatoro APRN: PERFORM Event Display: Office Clinic Note Physician Authored Date: [id number] POLY ARVIZU :1965 Age:56 years Sex:Female Visit Date:04/10/2022 Primary Care Physician: EAMON LALA Chief Complaint 2 week Colonoscopy follow up History of Present Illness Patient is a 56-year-old female here today at the request of Dr. Lala for abdominal pain with a history of gallstones and a stone in her common bile duct. He is here today as an established patient for follow-up of EGD. ?? Patient had a cholecystectomy on 08/29/2021 and on 11/07/2021 she had severe right upper quadrant pain and a MRCP, followed by ERCP that retrieved a stone in the common bile duct. On 11/12/2021 CT scan was normal at that time patient was continued to complain of right upper quadrant pain. ?? Patient reports having right upper quadrant pain [...] week now is 3-4 times per week. ?? The one thing that helps her with [...] uses Zofran once daily. Eats a bland diet.? A trial off metformin has not been helpful. ?? Stool test for C. difficile was negative. She is taking Questran powder 4 g daily. ?? Denies NSAID use. ?? Had lap leighton in 08/2021. ?? 08/2012 celiac panel was negative. ?? 12/27/2021 EGD was normal with biopsies showing no celiac disease, or H. pylori infection. There wasreactive chemical gastropathy. ?? Colonoscopy done 03/27/2022 showed rectal polyp that was hyperplastic.?? There was mild sigmoid diverticulosis. ??Random colon biopsies were negative. ?? Denies NSAID use. Review of Systems Pertinent positives and negatives are discussed in HPI. Physical Exam Vitals & Measurements T:??35.7?C ??(Temporal Artery)?? RR:??20?? BP:??128/80?? SpO2:??97%?? HT:??167.64??cm?? WT:??100.9??kg?? BMI:??35.9?? BSA:??2.17?? General: Well-nourished well-developed??Female??in no acute distress. HEENT: Head is normocephalic, trachea midline, and no cervical lymphadenopathy. Respiratory: Respirations are even and unlabored. ??Lungs are clear to auscultation. Cardiovascular: Regular rate and rhythm with S1 and S2. Abdomen: Positive bowel sounds x4 quadrants, no masses, no guarding, no tenderness. ??No hepatosplenomegaly. ??Abdomen is soft. Skin: Warm, dry, and pink. Neurological: Alert and oriented x3, speech is clear and gait is steady. Psychological: Pleasant, calm and cooperative. Assessment/Plan 1.??Diarrhea??R19.7 Reviewed findings of colonoscopy with the patient showing 1 hyperplastic polyp in the rectum. ??There was mild sigmoid diverticulosis. ??Recommend a high-fiber diet.?? She has had a trial off metformin without changes in diarrhea.?? Celiac panel has??been negative.?? Patient had cholecystectomy in August 2021 with symptoms worsen. 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 ??Will give trial of colestipol 2 g twice daily.?? She can decrease dose if she develops constipation. ??We can increase the dose??to as ??much as 5 grams twice daily.?? She is also??been diagnosed with??lung??the symptoms may be??functional in nature try other therapies if needed. 2.??S/P cholecystectomy??Z90.49 As above. Orders: colestipol 1 g oral tablet, 2 g = 2 tab, Oral, BID, with a full glass of water, # 120 tab, 3 Refill(s), Pharmacy: [facility] ([facility] 167.64, cm, 03/18/22 16:54:00 EDT, Height/LengthDosing, 99.79, kg, 03/18/22 16:54:00 EDT, Weight Dosing Follow-up Appointment Request [id number], *Est. 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 Cobalamin deficiency COVID-19 Diabetes mellitus Diarrhea Diarrhea Disorder of immune function Gastroesophageal reflux disease GERD - Gastro-esophageal reflux disease History of cholecystectomy HLD - Hyperlipidemia Keloid scar Morbid obesity Multiple joint pain Muscle pain Obstructive sleep apnea syndrome BERTA - Obstructive sleep apnea Paresthesia Peripheral neuralgia S/P cholecystectomy Trochanteric bursitis Vitamin D deficiency Historical No qualifying data Procedure/Surgical History ???Colonoscopy Biopsy (03/27/2022)???EGD - Esophagogastroduodenoscopy (12/27/2021)???Cholecystectomy???Colonoscopy???Dilation and curettage???ERCP???Hysterectomy Medications amLODIPine 5 mg oral tablet, 5 mg= 1 tab, Oral, Daily colestipol 1 g oral tablet, 2 g= 2 tab, Oral, BID, 3 refills Imodium 2 mg oral capsule Iron 100 Plus oral tablet Lipitor 40 mg oral tablet, 40 mg= [...] 0.75 mg/0.5 mL subcutaneous solution, See Instructions Vitamin B12 50 mcg oral tablet, 50 mcg= 1 tab, Oral, Daily Allergies Cymbalta??(Syncope) Latex??(Rash) penicillin??(Throat swelling) Social History Alcohol Current, 1-2 times per month Electronic Cigarette/Vaping Electronic Cigarette Use: Never. Substance Use Current, 1-2 times per month- Comments: oral CBD or THC Tobacco Current everyday tobacco user Tobacco Use:. Family History Arthritis: Mother. Cancer: Father. Family Member(s): ?? FATHER, at age: Unknown. Cause of : Electronically Signed on 04/10/22 10:01 AM Dagmar JacomeBLANCA carlson Electronically Signed on 04/10/22 01:13 PM Twan Orellana MD Patient Care team information Personnel Name: EAMON LALA Address: Address: [address] [place] [phone]
--- NOTE | 2023-04-20 14:21 | W.ED.GENAD ---
Discharge Plan Disposition Patient Disposition: Home Condition: Good Discharge Details Clinical Impression: Ear pain, left Primary Care Provider: Moise Lala ED Provider: Clifton Stewart Home Meds and New Rx's Prescriptions: New amoxicillin-pot clavulanate 875-125 mg tablet 1 tab PO BID 7 Days Qty: 14 0RF cephalexin 500 mg capsule 500 mg PO BID 7 Days Qty: 14 0RF Continued acetaminophen [Tylenol] 325 MG tablet 650 mg PO TID atorvastatin [Lipitor] 20 MG tablet 40 mg PO HS vitamin [id number] acid 1 EACH tablet 1 ea PO DAILY amlodipine 5 MG tablet 5 mg PO DAILY ibuprofen 600 mg tablet 600 mg PO TID metformin 500 mg tablet 500 mg PO DAILY vitamin B complex [B Complex-Vitamin B12] Tablet 1 tab PO DAILY hydroxyzine HCl 25 mg tablet 25 mg PO TID PRN losartan 25 mg tablet 25 mg PO DAILY pregabalin 100 mg capsule 150 mg PO BID pantoprazole 40 mg tablet,delayed release (DR/EC) 40 mg PO DAILY Jardiance 10 mg tablet 10 mg PO DAILY glipizide 5 mg tablet 5 mg PO DAILY trazodone 100 mg tablet 100 mg PO DAILY sertraline 100 mg tablet 200 mg PO DAILY clotrimazole 2 % cream 1 appful vaginal QHS ondansetron 4 mg tablet,disintegrating 4 mg PO Q8H PRN budesonide-formoterol [Symbicort] 160-4.5 mcg/actuation HFA aerosol inhaler 2 puff inhalation BID Levemir FlexPen 100 unit/mL (3 mL) insulin pen 20 unit SUBCUT DAILY Discharge Instructions Additional Instructions: start antibiotics as prescribed monitor symptoms if you develop fevers or worsening symptoms return to ED follow up with your PCP after you finish your antibiotics Medical Decision Making Emergent evaluation of left mastoid swelling. Initial differential includes mastoiditis, lymphadenopathy, viral illness given her symptoms, examination and risk factors, will get blood work including inflammatory markers and CT imaging of the area to rule out mastoiditis. Labs reviewed and are unremarkable. No elevation in inflammatory markers or white blood cell count. The patient had a CT scan with contrast to evaluate the mastoid and there is no abnormality there. Given the tenderness and swelling, this could just be inflamed lymph node, I will treat with Keflex given her allergy to penicillin. At the time of discharge, there was a critically ill patient in the emergency department that was requiring all of my attention. I provided the discharge paperwork to the nurse, and the patient declined to wait to talk to me as I was not immediately available at the time. Medical Records Medical records reviewed: Yes I reviewed the patient's medical records. Lab Data Lab results reviewed: Yes I reviewed the patient's lab results. HPI General Date/Time Provider Initiated Documentation: 04/20/23 13:56. Limitations to Documentation: no limitations. Information obtained by: patient. HPI Narrative: 57-year-old female with past medical history of diabetes presents for evaluation of left ear problem. She reports that she started having severe pain behind the left ear on Friday. She has a sensation of fullness in her left ear. She denies any drainage from the ear. Denies any fever. She reports that her ear is sticking out and that the the pain behind her left ear has progressively worsened. She denies any trauma. No relieving factors. No recent illness. Related Data Home Medications Medication Instructions Recorded Confirmed acetaminophen 325 mg tablet 650 mg PO TID 04/08/13 04/20/23 (Tylenol) atorvastatin 20 mg tablet (Lipitor) 40 mg PO HS 04/08/13 04/20/23 vitamin B12 500 mcg-folic acid 400 1 ea PO DAILY 04/08/13 04/20/23 mcg tablet amlodipine 5 mg tablet 5 mg PO DAILY 05/26/17 04/20/23 ibuprofen 600 mg tablet 600 mg PO TID 07/13/19 04/20/23 metformin 500 mg tablet 500 mg PO DAILY 07/13/19 04/20/23 vitamin B complex (B 1 tab PO DAILY 07/13/19 04/20/23 Complex-Vitamin B12 tablet) hydroxyzine HCl 25 mg tablet 25 mg PO TID PRN 08/23/21 04/20/23 losartan 25 mg tablet 25 mg PO DAILY 08/23/21 04/20/23 pantoprazole 40 mg tablet,delayed 40 mg PO DAILY 05/23/22 04/20/23 release pregabalin 100 mg capsule 150 mg PO BID 05/23/22 04/20/23 budesonide-formoterol HFA 160 2 puff inhalation BID 02/21/23 04/20/23 mcg-4.5 mcg/actuation aerosol inhaler (Symbicort) clotrimazole 2 % vaginal cream 1 appful vaginal QHS 02/21/23 04/20/23 empagliflozin 10 mg tablet 10 mg PO DAILY 02/21/23 04/20/23 (Jardiance) glipizide 5 mg tablet 5 mg PO DAILY 02/21/23 04/20/23 ondansetron 4 mg disintegrating 4 mg PO Q8H PRN 02/21/23 04/20/23 tablet sertraline 100 mg tablet 200 mg PO DAILY 02/21/23 04/20/23 trazodone 100 mg tablet 100 mg PO DAILY 02/21/23 04/20/23 amoxicillin 875 mg-potassium 1 tab PO BID 7 days #14 tabs 04/20/23 clavulanate 125 mg tablet cephalexin 500 mg capsule 500 mg PO BID 7 days #14 caps 04/20/23 insulin detemir U-100 100 unit/mL 20 unit subcut DAILY 04/20/23 04/20/23 (3 mL) subcutaneous pen (Levemir FlexPen) Previous Rx's Medication Instructions Recorded amoxicillin 875 mg-potassium 1 tab PO BID 7 days #14 tabs 04/20/23 clavulanate 125 mg tablet cephalexin 500 mg capsule 500 mg PO BID 7 days #14 caps 04/20/23 Allergies Allergy/AdvReac Type Severity Reaction Status Date / Time latex Allergy Severe Skin Rash Verified 04/20/23 13:12 duloxetine [From Cymbalta] Allergy Intermediate dizziness Verified 04/20/23 13:12 Penicillins AdvReac Severe Skin Rash Unverified 04/20/23 17:34 General Stated Complaint: EarProblem RIGOBERTO: 4 PFSH All Active Problems (Updated 04/20/23 @ 17:00 by Clifton Stewart MD) Ear pain, left (Acute) Chronic headache (Acute) Insomnia (Acute) Follow up (Acute) Hyperglycemia (Acute) Abdominal pain (Acute) Gall stones (Acute) Diarrhea (Acute) History of colon polyps (Acute) Cholecystitis with cholelithiasis (Acute) Medical History LBBB (left bundle branch block) Cardiomyopathy BMI 35.0-35.9,adult Adjustment disorder with anxious mood Menopausal disorder Trochanteric bursitis Corneal ulcer of right eye Bile acid malabsorption syndrome Anemia Tremor Grief at loss of child COVID-19 virus infection 05/2021-symptomatic Hyperplastic colon polyp Tubular adenoma of colon Tendinitis of long head of biceps brachii of left shoulder Arthritis of left acromioclavicular joint Bursitis of left shoulder SLAP lesion of left shoulder (~12/30/19) Type 2 diabetes mellitus Gallstones Trochanteric bursitis, left hip HTN (hypertension) Alopecia GERD (gastroesophageal reflux disease) Abnormal uterine bleeding Hyperlipidemia Fibromyalgia Morbid obesity Obstructive sleep apnea Anxiety associated with depression Tobacco dependence History of juvenile rheumatoid arthritis Depression Chest pain Per pt. stated this was a couple of years ago and had it worked up-negative work up Surgical History S/P laparoscopic cholecystectomy (~08/29/21) H/O: hysterectomy Dilation and curettage History of Surgical Procedure a. D/C x1. Family History Mother Rheumatoid arthritis Father Heart disease Neoplasm lung ca Social History Smoking/Tobacco Use Status: Current every day Tobacco Type: cigarettes Tobacco: How many years used: 41 Smoking risk assessment performed?: Yes Alcohol Intake: never Drug use: Occasionally Substance use type: marijuana and other Details: Edibles for pain associated with her fibromyalgia. Last used weeks ago. 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 [employer] Current gender identity: female Do you feel safe at home: Yes Do you feel safe in your relationship?: Yes Exam Narrative Exam Narrative: Review of Systems: All systems reviewed & are unremarkable except as noted in HPI and below: CONSTITUTIONAL: Alert and oriented Well-developed, no acute distress HEENT: NCAT EYES: PERRL, no conjunctival injection EARS: Left canal without erythema, edema or debris, clear effusion behind the TM, nontender speculum exam, obvious protrusion of the pinna with significant tenderness and swelling and erythema of the mastoid area THROAT oropharynx with mild erythema, no edema, no exudates CVS: RRR, No murmurs or gallops. RESP: Unlabored respiratory effort GI: Nondistended MSK: Extremities with full range of motion, no deformity or TTP SKIN: Warm, Dry. No rashes or lesions. NEURO: No focal neurologic deficits. Course Vital Signs Vital signs: Vital Signs Temperature 36.4 C L 04/20/23 13:08 Pulse 92 H 04/20/23 13:08 Respiratory Rate 18 04/20/23 13:08 Blood Pressure 125/76 04/20/23 13:08 Pulse Oximetry 98 04/20/23 13:08 Temperature 35.6 C L 04/20/23 13:31 Temperature Source Temporal Artery Scan 04/20/23 13:31 Pulse 92 H 04/20/23 13:31 Respiratory Rate 18 04/20/23 13:31 Respiratory Effort Normal 04/20/23 13:29 Blood Pressure 125/76 04/20/23 13:31 Blood Pressure Position Sitting 04/20/23 13:31 Pulse Oximetry 98 04/20/23 13:08 Oxygen Delivery Method Room Air 04/20/23 13:08 Oxygen Flow Rate 0 04/20/23 13:08 Pain Level 5 04/20/23 13:31 Lab/Test Results Lab/Test Results: Laboratory Tests Range/Units 04/20/23 04/20/23 13:58 13:59 WBC Cancelled RBC Cancelled Hgb Cancelled Hct Cancelled MCV Cancelled MCH Cancelled MCHC Cancelled RDW Cancelled Plt Count Cancelled MPV Cancelled Immature Gran % Cancelled Neutrophils % Cancelled Band Neutrophils % Cancelled Lymphocytes % Cancelled Atypical Lymphs % Cancelled Monocytes % Cancelled Eosinophils % Cancelled Basophils % Cancelled Metamyelocytes % Cancelled Myelocytes % Cancelled Promyelocytes % Cancelled Other Cells % Cancelled Nucleated RBC % Cancelled Absolute Neutrophils Cancelled Absolute Lymphocytes Cancelled Absolute Monocytes Cancelled Absolute Eosinophils Cancelled Absolute Basophils Cancelled RBC Morphology Cancelled Polychromasia Cancelled Hypochromasia Cancelled Poikilocytosis Cancelled Basophilic Stippling Cancelled Anisocytosis Cancelled Microcytosis Cancelled Macrocytosis Cancelled Spherocytes Cancelled Tear Drop Cells Cancelled Ovalocytes Cancelled Stomatocytes Cancelled Benite[place] Bodies Cancelled [place] Cells/Echinocytes Cancelled Acanthocytes (Spur) Cancelled Schistocytes Cancelled Sodium Cancelled Potassium Cancelled Chloride Cancelled Carbon Dioxide Cancelled Anion Gap Cancelled BUN Cancelled Creatinine Cancelled Est GFR (CKD-EPI 2020) Cancelled Glucose Cancelled Calcium Cancelled Magnesium Cancelled Total Bilirubin Cancelled AST Cancelled ALT Cancelled Alkaline Phosphatase Cancelled Total Protein Cancelled Albumin Cancelled Lipase Cancelled
[2023-04-20 14:55] LABS: Abs Immature Grans 0.02 10^3/uL (0.0-0.06); Absolute Basophil Count 0.06 10^3/uL (0.0-0.2); Absolute Eosinophil Count 0.11 10^3/uL (0.0-0.7); Absolute Lymphocyte Count 2.78 10^3/uL (1.2-3.4); Absolute Monocyte Count 0.59 10^3/uL (0.1-0.8); Absolute Neutrophil Count 4.73 10^3/uL (1.2-6.7); Basophils % 0.7; Eosinophils % 1.3; HCT 40.8 % (36.0-46.0); HGB 13.1 g/dL (11.2-15.7); Immature Grans % 0.2; Lymphocytes % 33.5; MCH 26.8 pg (27.0-33.0); MCHC 32.1 % (32.0-36.0); MCV 83 fL (80-95); MPV 9.3 fL (8.0-11.0); Monocytes % 7.1; Neutrophils % 57.2; Platelet Count 266 10^3/uL (130-400); RBC 4.89 10^6/uL (3.93-5.22); RDW-SD 45.3 fL; WBC 8.29 10^3/uL (4.4-10.8)
[2023-04-20 14:57] LABS: ESR 24 mm/hr (0-30)
[2023-04-20] MEDS: Normal Saline - Diluent 50 ML VIAL IJ (15:08)
[2023-04-20] MEDS: Normal Saline Flush 10 ML SYR IVP (15:09)
[2023-04-20] MEDS: Omnipaque 350 MG/ML 100 ML BTL IJ (15:09)
[2023-04-20 15:10] LABS: ALT 33 U/L (14-59); AST 17 U/L (15-37); Albumin 3.8 g/dL (3.4-5.0); Alkaline Phosphatase 160 U/L (46-116); Anion Gap 10.6 mmol/L (3-11); BUN 20 mg/dL (7-18); Bilirubin, Total 0.3 mg/dL (0.2-1.0); C-Reactive Protein 0.07 mg/dL (0.0-0.3); CO2 25.4 mmol/L (21.0-32.0); CREATININE 0.8 mg/dL (0.55-1.02); Calcium 9.4 mg/dL (8.5-10.1); Chloride 101 mmol/L (98-107); Estimated GFR 86.42 (mL/min/1.73m2); Glucose 121 mg/dL (74-106); Potassium 3.8 mmol/L (3.5-5.1); Sodium 137 mmol/L (136-145); Total Protein 7.8 g/dL (6.4-8.2)
--- NOTE | 2023-04-20 15:16 | DI.CT_ITS ---
Exam(s) CT TEMPORAL BONE W EXAM: CT TEMPORAL BONE W CLINICAL HISTORY: left mastoid pain. TECHNIQUE: Imaging Protocol: Axial computed tomography images with coronal and sagittal reformatted images were created and reviewed. CONTRAST MATERIAL: Intravenous: Omnipaque 350 Contrast volume:structured data in ml Contrast route:I V - Oral: yes / no COMPARISON: CT CT HEAD WO from 12/02/2022 FINDINGS: Right Temporal Bone: The cochlea, vestibule, vestibular and cochlear aqueduct are normal. The facial nerve canal is well m aintained. The semicircular canals are unremarkable. There is no evidence of dehiscence. The internal auditory canal is within normal limits. The scutum and tegmen are within normal limits. There is no evidence of otosclerosis.CT CT HEAD WO from 12/02/2022 The external auditory canal and mastoid air cells are normal. The carotid canal and jugular foramen a re within normal limits. The temporomandibular joint is unremarkable. Left Temporal Bone: The cochlea, vestibule, vestibular and cochlear aqueduct are normal. The facial nerve canal is well m aintained. The semicircular canals are unremarkable. There is no evidence of dehiscence. The interna l auditory canal is within normal limits. The scutum and tegmen are within normal limits. There is no evidence of otosclerosis. The external auditory canal and mastoid air cells are normal. The carotid canal and jugular foramen a re within normal limits. The temporomandibular joint is unremarkable. IMPRESSION: No significant findings on this CT scan of the temporal bones. RADIATION DOSE DELIVERED: Total DLP DATA REPOSITORY: All CT scans at this facility are submitted to the National Radiology Data Registry (NRDR) Dose Index Registry (DIR) with the [employer] (ACR). RADIATION OPTIMIZATION: All CT scans at this facility use at least one of these dose optimization te chniques: automated exposure control; mA and/or kV adjustment per patient size (includes targeted exa ms where dose is matched to clinical indication); or iterative reconstruction.
--- NOTE | 2023-04-20 15:59 | DI.VRAD_ITS ---
PROCEDURE INFORMATION: Exam: CT Temporal Bones With Contrast. Exam date and time: 04/20/2023 3:02 PM Age: 57 years old Clinical indication: Pain; Other: Mastoid- left TECHNIQUE: Imaging protocol: Computed tomography of the temporal bones with contrast. Radiation optimization: All CT scans at this facility use at least one of these dose optimization techniques: automated exposure control; mA and/or kV adjustment per patient size (includes targeted exams where dose is matched to clinical indication); or iterative reconstruction. Contrast material: OMNI 350; Contrast volume: 100 ml; Contrast route: INTRAVENOUS (IV); COMPARISON: CT HEAD WO 12/02/2022 2:19 PM FINDINGS: Right inner ear: Normal. Right ossicles and middle ear: Normal. The middle ear ossicles are intact. No bony erosion. Right external auditory canal: Normal. Right facial nerve canal: Normal. Right jugular foramen: No jugular dehiscence. Right carotid canal: No aberrant carotid canal. Right mastoid air cells: Normal. No mastoid effusions. Left inner ear: Normal. Left ossicles and middle ear: Normal. The middle ear ossicles are intact. No bony erosion. Left external auditory canal: Normal. Left facial nerve canal: Normal. Left jugular foramen: No jugular dehiscence. Left carotid canal: No aberrant carotid canal. Left mastoid air cells: Normal. No mastoid effusions. Soft tissues: Unremarkable. IMPRESSION: No acute findings. Dictated and Authenticated by: Twan Lu MD. Ordering:GLENDY Hidalgo MD
[2023-04-20 16:23] VITALS: BP 113/65; PULSE 72; RESP 18; O2SAT 96
--- NOTE | 2023-04-21 11:31 | NUR.NOTE ---
[facility] called asking about 2 prescriptions for this pt. Augmentin and Keflex, also they have her as having a PCN allergy; provider made aware of this. Per OTILIA Gardiner he said Keflex and this was relayed. Nursing Note:
== END 2023-04-20 17:38 | disposition home or self-care (01) ==
PROVIDERS: Emergency Provider Emergency Medicine; PCP Family Medicine
DX: H92.02 Otalgia, left ear (principal)
CPT/HCPCS: 80053; 83690; 85652; 99283; 70481; 83735; 85025; 86140; 99284; J3490

== ENCOUNTER 2023-09-10 13:48 | Outpatient (REF) | payer OTHER, SELFPAY | END 2023-09-10 13:49 | disposition home or self-care (01) | LOC: NCHCN 13:48 | PROVIDERS: PCP Family Medicine; Visit Provider Student in an Organized Health Care Education/Training Program | DX: R30.0 Dysuria (principal) | CPT/HCPCS: 87086 ==

== ENCOUNTER 2024-05-26 13:15 | Outpatient (REF) | payer OTHER, SELFPAY ==
--- OUTSIDE RECORDS SUMMARY | 2024-05-26 13:17 | XMS_ITS | Encounter Summary ---
Author Organization 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 Name Role Phone Unavailable Primary Care Provider Unavailabl e Encounter Details Date Type Department Care Team (Late st Contact Info) Description 05/08/2006 Before PRISM Converted Visit (Maple) [facility] - Maple conversion [address] [place] [address] Irina Jones PA-C [address], [place] [id number] Social History Tobacco Use Types Packs/Day Years Used Date Smoking Tobacco: Never Assessed Comments Unknown Sex and Gender Information Value Date Recorded Sex Assigned at Not on file Legal Sex Female 18:35 EST Gender Identity Not on file Sexual Orientation Not on file documented as of this encounter Consult Notes * Neel, Conv Product Applications Engineer - 05/25/2009 1506 EST DIVISION OF RHEUMATOLOGY CONSULTATION - HISTORY OF PRESENT ILLNESS: Nikia Steele is a 40- year- old white female sent for consultation by Dr. Daniel Gutierrez for suspected lupus. This patient's past medical history is significant for JRA, with which she was diagnosed at 17 years of age. At that time, she was having pain in her hips, hands, feet and anterior chest wall. She was followed at [facility] for 5 years. Her symptoms subsided at age 22. During those 5 years, she was treated with a combination of Indocin, physical therapy, dietand exercise. Over the past 6 months, the patient has had pain in the same areas, including the hips, hands, feet and anterior chest wall. Her pain is worse in the morning and she does report about an hour of stiffness. She has noticed swelling off and onin the PIPs and DIPs. She also reports thatshe has hip pain, which is constant. It seems to be aggravated by activity, but it can also bother her at night. The left hip is worse than the right. She has some achiness in the knees, but it is not as significant as that in the hips. She denies any problems with the ankles. Her feet are tender in the morning, particularly over the MTPs. She has noticed swelling in the feet, but it is off and on and it also includes the ankles. She denies any low back pain or problems with her shoulders and elbows. The patient states that in the timeframe between now and the age of 22, she has had achiness off and on, which she has treated with over- the- counter products such as Advil. During this current flare, the patient has tried Advil with no relief. She was also placed on a course of Indocin for 10 days, which did help somewhat. The patient believes the dosage was 25 mg 3 times a day. The patient reports that she has had a significant amount of fatigue over the last 6- 8 months. Shereports that she is tired throughout the day; however, she is having difficulty falling asleep at night. She often falls asleep at 2 a.m. and is up again at 6:30 a.m. Prior to bedtime, she often surfs the Internet and watches television. She naps 2- 3 hours during the day. She has time to exercise,but has not been doing so. REVIEW OF SYSTEMS: The patient reports an 11- to 12-year history of alopecia, although it seems to have been worse in the last 6- 8 months. She also has a history of hirsutism. She has been feeling hot and cold, but denies any fever. Her weight has been stable. She denies any recent vision changes, pain or sicca. She does not have a history of iritis or uveitis. During childhood, she had recurrent canker sores but not recently. She reports a 6- month history of nasal congestion, postnasal drip and cough. She denies any history of allergies, sneezing or itchy, watery eyes. She had a bout of otitis externa in February 2006. She denies any chest pain, shortness of breath or dyspnea. She has a distant history of pneumonia and asthma. Over the past 6- 8 months, she has had an increase in her number of daily bowel movements. She has approximately 3 daily, which are sometimes associated with abdominal pain. She denies any bleeding. She denies any persistent nausea, vomiting or dysphagia. She has a history of pyelonephritis but no renal disease. Her periods are regular every 28 days, but she does have dysmenorrhea. This patient has never been , but the exact nature of her infertility is unclear. She denies any low back pain. She has noticed some redness inthe face over the lastseveral months and also reports a rash off and on in the arms and legs. She denies any itching. She denies any history of Raynaud's or photosensitivity. She rarely has headaches. There is no past history of seizure. She has a history of anxiety and depression and is currently in family therapy. PAST MEDICAL HISTORY: 1. Juvenile rheumatoid arthritis (JRA). 2. Hypercholesterolemia. 3. Gastroesophageal reflux disease (GERD). 4. Pneumonia and asthma in childhood. 5. Anxiety and depression. 6. Right wrist fracture. MEDICATIONS: 1. Protonix 40 mg daily. 2. Paxil 30 mg daily. 3. Lipitor 10 mg daily x4 years. ALLERGIES: No known drug allergies. FAMILY HISTORY: The patient reports that her maternal grandfather had rheumatoid arthritis. She also had a paternal aunt with rheumatoid arthritis. SOCIAL HISTORY: The patient is and is here today with her . They have 4 adopted children. She smokes approximately 20 cigarettes per day and has been smoking for 26 years.She does not drink alcohol. She enjoys downhill skiing, crafts and reading. PHYSICAL EXAMINATION: Weight 241, height 66- 3/4 inches, blood pressure 118/74, pulse 80, respirations 16. Eyes: Conjunctivae and sclerae are clear. Pupils are equal, round, andreactive to light. HEENT: Pharynx clear. Neck: No thyromegaly or thyroid nodules palpated. No cervical adenopathy. Respiratory: Lungs are clear to auscultation. Cardiac: The heart has a regular rate and rhythm without murmur. GI: The abdomen is overweightbut is soft and nontender. Bowel sounds are within normal limits. Skin: There is dry skin in the upper arm but no acute rash. There also appears to be very mild erythema and some scattered papules across the cheeks. The hair is quite thin especially in the frontal area of the scalp. Neurologic: Deep tendon reflexes are 2+ throughout. Strength is 5/5 in all large muscle groups. Peripheral vascular: 2+ radial and dorsalis pedis pulses bilaterally. Musculoskeletal: There is tenderness but no soft tissue swelling over the SC joints bilaterally. Examination of the shoulders is unremarkable. There is no inflammation at the elbows, wrists or hands. There is some tenderness over the third and fourth left DIPs as well as the flexor tendon of the right ring finger. Range of motion at the hips is within normal limits, although the patient has groin pain bilaterally with rotation. She also has left trochanteric tenderness with range of motion. There is no evidence of inflammation in the lower extremities, although there is some mild tenderness over the right fourth MTP and the left second toe is exquisitely tender to light touch. Garry test reveals expansion from 15- 23 cm and chest wall expansion is 1 cm. Laboratory on March 21, 2006: FRANCES 1:80 with a speckled pattern, ESR 13, rheumatoid factor negative. ASSESSMENT: This patient's past medical history is significant for JRA. Her symptoms seem to have subsided in her early 20s. I do not see evidence of an inflammatory arthritis on examination today. Given this patient's history of hip pain, I cannot help but wonder if this patient actually had a spon dyloarthropathy in her adolescence. I am going to order further lab work as well as x- rays of the hips and SI joints to further investigate this potential diagnosis. This patient's FRANCES is only slightly positive, and I do not believe she has systemic lupus erythematosus. PLAN: 1. Obtain x- rays of the hips and pelvis. 2. This patient has received benefit from Indocin in the past. I think her most recent dosage was probably too low. I gave her a prescription for Indocin 50 mg 1 tablet t.i.d. with food as needed. 3. Check CBC with differential, CMP, UA, TSH, SSA and SSB antibodies, CK and HLA- B27. 4. This patient is quite concerned about her alopecia. I am not sure if this represents, along withher hirsutism, some sort of endocrine problem. I did suggest an endocrinology consultation and she will discuss this with Dr. Gutierrez if interested. Followup with rheumatology as needed. Would recommend Dr. Gutierrez monitor CBC, creatinine and LFTs periodically while patient taking chronic Indocin. I was directly supervised by Dr. Mayela Khoury who was in the office suite and immediately available the entire time the service was provided. ADDENDUM: CK 68, CMP and CBCD WNL, TSH 1.66, SSA and SSB antibodies negative, HLA B27 negative. UA negative for protein and blood. X-rays of hips, pelvis - normal Diagnosis remains JRA by history. Edited and Signed by Mayela Khoury MD 05/17/2006 10:50 Reviewed by OTILIA Landrum 05/15/2006 10:16 Jose Roberto Rodrigues PABonita S Libman, MD Dictated by: OTILIA Landrum Mayela Khoury MD - OTILIA Landrum A - O1 Job ID: [id number] Document ID: [id number] cc: Daniel Gutierrez MD documented in this encounter Plan of Treatment Not on file documented as of this encounter Visit Diagnoses Not on filedocumented in this encounter
--- OUTSIDE RECORDS SUMMARY | 2024-05-26 13:17 | XMS_ITS | Encounter Summary ---
Author Organization [facility] Address [address] [place] [address] Care Team Providers Care Child And Adolescent Psychiatrist Name Role Phone Unknown, Provider Primary Care Provider Moise Poole MD Primary Care Provider [phone] Encounter Details Date Type Department Care Team (Late st Contact Info) Description 10/18/2020 Lab Requisition [facility] Pathology & Laboratory Medicine - [facility] [address] [place] [address] Outr Resulting Lab, Provider Social History Tobacco Use Types Packs/Day Years Used Date Smoking Tobacco: Never Assessed Interpersonal Safety Answer Date Record ed Physically Hurt Never 12/19/2019 Verbally Threaten Not on file 12/19/2019 Comments Unknown Sex and Gender Information Value Date Recorded Sex Assigned at Not on file Legal Sex Female 18:35 EST Gender Identity Not on file Sexual Orientation Not on file documented as of this encounter Plan of Treatment Not on file documented as of this encounter Procedures Procedure Name Priority Date/Time Associated Diagnosis Comments ZZCOVID-19 TEST [facility] PCR Today 10/18/2020 11:30 EDT COVID-19 TESTING Routine 10/18/2020 11:3 0 EDT documented in this encounter Results * COVID-19 TEST [facility] PCR (10/18/2020 11:30 EDT) Swab ENTIRE NASOPHARYNX / Unknown 10/18/2020 11:30 EDT 10/18/2020 20:38 EDT us Provider Outr Resulting Lab MICROBIOLOGY - GENER AL ORDERABLES Final Result [facility] [address] [place] [address] * COVID-19 TESTING (10/18/2020 11:30 EDT) COVID-19 rt-PCR Result Negative Negative 10/19/2020 13:32 EDT [facility] Comment: This test has not been FDA cleared or approved. This test has been authorized by FDA under an EUA for use by authorized laboratories. This test has been authorized only for detection of nucleic acid from 2019-nCoV, not for any other viruses or pathogens. This test is only authorized for the duration of the declaration that circumstances exist justifying the authorization of emergency use of in vitro diagnostic tests for detection and/or diagnosis of 2019-nCoV under section 564(b)(1) of Act, 21 U.S.C ?? 360bbb-3(b) (1), unless the authorization is terminated or revoked sooner. Negative results do not preclude 2019-nCoV infection and should not be used as the sole basis for treatment or other patient management decisions. Negative results must be combined with clinical observations, patient history, and epidemiological information. This test was developed and its performance characteristics determined by [facility]. It has not been cleared or approved by the US Food and Drug Administration. FDA does not require this test to go through premarket FDA review. This test is used for clinical purposes. It should not be regarded as investigational or for research. This laboratory is certified under the Clinical Laboratory Improvement Amendments (CLIA) as qualified to perform high complexity clinical laboratory testing. This test is based on the [facility] COVID-19 Emergency Use Authorization (EUA) assay, with minor modification as defined by the FDA Performed on the [employer] 7 Pro RT-PCR System. Performing Lab [facility] 10/19/2020 13:32 EDT [facility] Swab 10/18/2020 11:3 0 EDT 10/18/2020 20:38 EDT us Provider Outr Resulting Lab MICROBIOLOGY - GENER AL ORDERABLES Final Result [facility] [address] [place] [address] documented in this encounter Visit Diagnoses Not on filedocumented in this encounter Additional Health Concerns Infection Onset Date Last Indicated Resolved Time COVID-19 05/28/2021 05/28/2021 06/17/2021 22:1 5 EST documented as of this encounter Care Teams Child And Adolescent Psychiatrist Relationship Specialty Start Date End Date Unknown, Provider, PCP - General 04/03/20 07/16/21 Moise Lala MD [facility] [place] [address] PCP - General 07/17/21 documented as of this encounter
--- OUTSIDE RECORDS SUMMARY | 2024-05-26 13:17 | XMS_ITS | Encounter Summary ---
Author Organization [facility] Address [address] [place] [address] Care Team Providers Care Obiee Report Developer Name Role Phone Unknown, Provider Primary Care Provider Unava ilable Encounter Details Date Type Department Care Team (Late st Contact Info) Description 03/11/2012 Results Only [facility]- [facility] [phone] Buster Eduardo, BAG GRADER [address] [place] [address] Social History Tobacco Use Types Packs/Day Years [...] Procedure Name Priority Date/Time Associated Diagnosis Comments PAP TEST- RESULT ONLY Routine 03/11/2012 0:00 EDT documented in this encounter Results * PAP TEST- RESULT ONLY (03/11/2012 0:00 EDT) Pathology Report: CYTOPATHOLOGY REPORT Reports generated via electronic interface contain original data; however they are lacking the format of the original report. Caution should be taken when reading/interpreti ng unformatted reports. Name: ? POLY DENTON ? Accession #: ? [id number] : ? 1965 (Age: 46) ??F ?Collect Date: ? 03/11/2012 Location: ? [facility] ? Receive Date: ? 03/13/2012 Provider: ?BUSTER EDUARDO CASING TESTER Copy to: ? Specimen/Source: ?Pap Test, Cervix/Endocervix, ThinPrep Imaging System with manual evaluation Last Menstrual Period: ? 02/28/2012 Other: ? Additional clinical information: D&C 2009 ? SPECIMEN ADEQUACY ? Satisfactory for Evaluation - transformation zone component present GENERAL CATEGORIZATION ? Negative for Intraepithelial Lesion or Malignancy ? Document reviewed and electronically signed by: ? THOMAS Lamar(ASCP) ? Report Date: ??03/18/2012 15:03 End of Report [facility] 03/11/2012 03/13/2012 us Buster Eduardo BAG GRADER PATHOLOGY ORDERABLES Final Re sult [facility] [address] [place] [address] documented in this encounter Visit Diagnoses Not on filedocumented in this encounter Care Teams Obiee Report Developer Relationship Specialty Start Date End Date Unknown, Provider, PCP - General 03/13/12 05/05/13 documented as of this encounter
--- OUTSIDE RECORDS SUMMARY | 2024-05-26 13:17 | XMS_ITS | Encounter Summary ---
Author Organization [facility] Address [address] [place] [address] Care Team Providers Care Director Of Event Management Name Role Phone Unavailable Primary Care Provider Unavailabl e Encounter Details Date Type Department Care Team (Late st Contact Info) Description 01/17/2005 Results Only [facility] [address] [place] [address] Laly Ramirez PA-C [address] [place] [address] [place] [address] Social History Tobacco Use Types Packs/Day Years [...] Procedure Name Priority Date/Time Associated Diagnosis Comments SURGICAL PATHOLOGY Routine 01/17/2005 0:00 EDT documented in this encounter Results * SURGICAL PATHOLOGY (01/17/2005 0:00 EDT) Pathology Report: SURGICAL PATHOLOGY REPORT Reports generated via electronic interface contain original data; however they are lacking the format of the original report. Caution should be taken when reading/interpreti ng unformatted reports. Name: ? IVETTEPOLY ? Accession #: ? [id number] ? : ? 1965 (Age: 39) ??F ? Collect Date: ? 01/17/2005 ? [place] ? [facility] [place] Receive Date: ? 01/18/2005 ? Provider: LALY BINGHAM Copy to: ZAMZAM LEONE MD ? Final Pathologic Diagnosis: ? Skin of mons pubis, shave biopsy: - Seborrheic keratosis, pigmented. Microscopic Description: ? The stratum corneum is thickened by compact and basketweave orthokeratosis with formation of horn pseudocysts. ??The epidermis is acanthotic with formation of broad and anastomosing trabeculae. ??The trabeculae are composed of basaloid keratinocytes with round uniform nuclei. ??The keratinocytes have a variable amount of melanin pigment. ??(Dr. Bacon)/[facility] Document reviewed and electronically signed by: LUKE BACON MD Report ??Date: 01/22/2005 16:09 By the signature above, the attending physician certifies that he/she has personally conducted a gross and/or microscopic examination of the described specimens and rendered or confirmed the above diagnosis. Specimen(s) Received: ? 1.75 x 1.0 cm raised dark brown lesion within pubic hair/mons pubis Clinical History: ? Coarse surface texture, shaved with scalpel; dark brown raised lesion catching on clothing. ??Mashed removed in past likely seborrheic keratosis; clinical diagnosis code: ??238.2 Gross Description: ? Received in formalin labelled Ivette and lesion/pubis is a 1.5 x 0.8 x 0.3 cm brown-mckeon granular/lobulated papule. ??The specimen is trisected and entirely submitted as (A1). ??Received in the same specimen container is a separate irregular 0.4 x 0.2 x 0.2 cm fragment of vieira skin. ??This fragment is submitted entirely as (A2). ??(Dr. Nuno-LE)/[facility] End of Report [facility] 01/17/2005 01/18/2005 14: 44 EDT us Laly Ramirez PA-C PATHOLOGY ORDERABLES Fin al Result [facility] [address] [place] [address] documented in this encounter Visit Diagnoses Not on filedocumented in this encounter
--- OUTSIDE RECORDS SUMMARY | 2024-05-26 13:17 | XMS_ITS | Encounter Summary ---
Author Organization [facility] Address [address] [place] [address] Care Team Providers Care Drug Enforcement Agent Name Role Phone Moise Lala MD Primary Care Provider [phone] Encounter Details Date Type Department Care Team (Late st Contact Info) Description 03/28/2022 Lab Requisition [facility] Lab - Main [address] [address] Twan Orellana MD [address] [place] [phone] Noninfective gastroenteritis and colitis, unspecified; Lower abdominal pain, unspecified Social History Tobacco Use Types Packs/Day Years [...] Priority Date/Time Associated Diagnosis Comments SURGICAL PATHOLOGY Today 03/27/2022 7: 37 EST Noninfective gastroenteritis and colitis, unspecified Lower abdominal pain, unspecified documented in this encounter Results * SURGICAL PATHOLOGY (03/27/2022 7:37 EST) Note to Patient The following pathology results have been interpreted by your pathologist and may be available to you before your health provider has had the opportunity to review them. Please allow time for your provider to receive these results and explore management options, if applicable. 03/29/2022 9:49 [facility] Final Diagnosis A. COLON, RANDOM BIOPSIES: - Colonic mucosa with no diagnostic abnormality. B. RECTUM, BIOPSY: - Hyperplastic polyp. 03/29/2022 9:49 [facility] Attestation By the signature below, the attending physician certifies that they have 1) personally conducted a gross and/or microscopic examination of the described specimen(s), and/or personally interpreted the results of laboratory testing of the described specimen(s), and 2) personally rendered or confirmed the above diagnosis. 03/29/2022 9:49 [facility] at 0949 Clinical History h/o chronic diarrhea, diverticulosis 03/29/2022 9:49 [facility] Gross Description A. Received in formalin labeled ? Nikia Denton? and ? random colon BX s? are 3 mucosal tissue fragments ranging in size from less than 0.1 cm up to 0.2 x 0.2 x 0.2 cm. Entirely submitted in A1. B. Received in formalin labeled ? Nikia Denton? and ? rectal polyp? is a single mucosal tissue fragment measuring 0.6 x 0.2 x 0.1 cm. Entirely submitted in B1. MARKEL MORGAN 03/28/2022 8:58 03/29/2022 9:49 [facility] Performing Lab [facility] 03/2022 9:49 [facility] Scanned Images 03/29/2022 9:49 [facility] Tissue ENTIRE RECTUM / Unknown 03/27/2022 7:37 EST 03/28/2022 7:35 EST Tissue specimen (specimen) ENTIRE RECTUM / Unknown 03/27/2022 7:37 EST 03/28/2022 7:36 EST us Twan Orellana MD PATHOLOGY ORDERABLES Final Result [facility] [address] [place] [address] documented in this encounter Visit Diagnoses Diagnosis Noninfective gastroenteritis and colitis, unspecified Lower abdominal pain, unspecified documented in this encounter Care Teams Drug Enforcement Agent Relationship Specialty Start Date End Date Moise Lala MD [address] [place] [address] PCP - General 07/17/21 documented as of this encounter
--- OUTSIDE RECORDS SUMMARY | 2024-05-26 13:17 | XMS_ITS | Encounter Summary ---
Author Organization [facility] Address [address] [place] [address] Care Team Providers Care Facilities Maintenance Assistant Name Role Phone Buster Campos APRN Primary Care Provider [phone] Encounter Details Date Type Department Care Team (Latest Contact Info) Description 06/11/2017 10:37 EST - 06/11/2017 23:59 EST Hospital Encounter [address] [address] Unknown, Provider, MD Discharge Disposition: Home or Self Care Social History Tobacco Use Types Packs/Day Years Used Date Smoking Tobacco: Never Assessed Comments Unknown Sex and Gender Information Value Date Recorded Sex Assigned at Not on file Legal Sex Female 18:35 EST Gender Identity Not on file Sexual Orientation Not on file documented as of this encounter Discharge Disposition Disposition Code Departure Means Destination Home or Self Senior Care documented in this encounter Plan of Treatment Not on file documented as of this encounter Visit Diagnoses Not on filedocumented in this encounter Care Teams Facilities Maintenance Assistant Relationship Specialty Start Date End Date Buster Campos APRN [address] [place] [phone] PCP - General 05/06/13 07/25/19 documented as of this encounter
--- OUTSIDE RECORDS SUMMARY | 2024-05-26 13:17 | XMS_ITS | Encounter Summary ---
Author Organization [facility] Address [address] [place] [address] Care Team Providers Care Compressor Mechanic Bus Name Role Phone Moise Lala MD Primary Care Provider [phone] Encounter Details Date Type Department Care Team (Late st Contact Info) Description 12/28/2021 Lab Requisition [facility] - Main [address] [address] Twan Orellana MD [address] [place] [phone] Nausea with vomiting, unspecified; Right upper quadrant pain; Epigastric pain Social History Tobacco Use Types Packs/Day Years [...] Date/Time Associated Diagnosis Comments SURGICAL PATHOLOGY Today 12/27/2021 12 :55 EDT Nausea with vomiting, unspecified Right upper quadrant pain Epigastric pain documented in this encounter Results * SURGICAL PATHOLOGY (12/27/2021 12:55 EDT) Note to Patient The following pathology results have been interpreted by your pathologist and may be available to you before your health provider has had the opportunity to review them. Please allow time for your provider to receive these results and explore management options, if applicable. 12/31/2021 11:36 [facility] Final Diagnosis A. DUODENUM, BIOPSY: - No diagnostic abnormality. - No features of sprue present. B. DUODENAL BULB, BIOPSY: - No diagnostic abnormality. - No features of sprue present. C. GASTRIC ANTRUM, BIOPSY: - Reactive gastropathy. - Negative for intestinal metaplasia and dysplasia. D. GASTRIC BODY, BIOPSY: - No diagnostic abnormality. 12/31/2021 11:36 [facility] Attestation By the signature below, the attending physician certifies that they have 1) personally conducted a gross and/or microscopic examination of the described specimen(s), and/or personally interpreted the results of laboratory testing of the described specimen(s), and 2) personally rendered or confirmed the above diagnosis. 12/31/2021 11:36 [facility] at 1136 Clinical History RUQ pain, epigastric pain, N/V GERD, diarrhea, 12/31/2021 11:36 [facility] Gross Description A. The specimen is received in formalin labeled with ? Nikia Denton? and ? A? and ? duodenum Bx? are 4 mucosal fragments that range in size from 0.1 x 0.1 x 0.2 cm up to 0.1 x 0.1 x 0.6 cm. The specimen is entirely submitted in 1 cassette. B. The specimen is received in formalin labeled with ? Nikia Denton? and ? B? and ? duodenal bulb Bx? are 2 mucosal fragments that measure 0.1 x 0.2 x 0.2 cm and 0.1 x 0.2 x 0.4 cm. The specimen is entirely submitted in 1 cassette. C. The specimen is received in formalin labeled with ? Nikia Denton? and ? C? and ? antrum Bx? are 2 mucosal fragments that measure 0.1 x 0.2 x 0.3 cm and 0.1 x 0.2 x 0.3 cm. The specimen is entirely submitted in 1 cassette. D. The specimen is received in formalin labeled with ? Nikia Denton? and ? D? and ? gastric body Bx? is a mucosal fragment that measures 0.2 x 0.2 x 0.4 cm. The specimen is entirely submitted 1 cassette. Marley Meeks 12/28/2021 14:42 12/31/2021 11:[address] [facility] Performing Lab [facility] 12/31/2021 11:[address] [facility] Scanned Images 12/31/2021 11:[address] [facility] Tissue DUODENAL STRUCTURE / Unknown 12/27/2021 12:55 EDT 12/28/2021 12:03 EDT Tissue specimen (specimen) DUODENAL AMPULLA STRUCTURE / Unknown 12/27/2021 12:55 EDT 12/28/2021 12:03 EDT Tissue specimen (specimen) PYLORIC ANTRUM STRUCTURE / Unknown 12/27/2021 12:55 EDT 12/28/2021 12:03 EDT Tissue specimen (specimen) GASTRIC CORPUS STRUCTURE / Unknown 12/27/2021 12:55 EDT 12/28/2021 12:03 EDT us Twan Orellana MD PATHOLOGY ORDERABLES Final Result [facility] [address] [place] [address] documented in this encounter Visit Diagnoses Diagnosis Nausea with vomiting, unspecified Right upper quadrant pain Abdominal pain, right upper quadrant Epigastric pain Abdominal pain, epigastric documented in this encounter Care Teams Compressor Mechanic Bus Relationship Specialty Start Date End Date Moise Lala MD [address] [place] [address] PCP - General 07/17/21 documented as of this encounter
--- OUTSIDE RECORDS SUMMARY | 2024-05-26 13:17 | XMS_ITS | Encounter Summary ---
Author Organization [facility] Address [address] [place] [address] Care Team Providers Care Tankerman Name Role Phone Unknown, Provider Primary Care Provider Unava ilable Encounter Details Date Type Department Care Team (Late st Contact Info) Description 05/04/2013 Results Only [facility] Services - [facility] [address] [place] [address] Smita Sheth MD [address] [place] [address] [place] [address] Social History Tobacco Use Types Packs/Day Years [...] Date/Time Associated Diagnosis Comments SURGICAL PATHOLOGY Routine 05/04/2013 21 :36 EST documented in this encounter Results * SURGICAL PATHOLOGY (05/04/2013 21:36 EST) Pathology Report: SURGICAL PATHOLOGY REPORT Reports generated via electronic interface contain original data; however they are lacking the format of the original report. Caution should be taken when reading/interpreting unformatted reports. Name: ? POLY DENTON ? Accession #: ? [id number] ? : ? 1965 (Age: 47) ??F ? Collect Date: ? 05/04/2013 ? Location: ? [facility] ? Receive Date: ? 05/04/2013 ? Provider: SMITA SHETH MD Copy to: OLAF JOHNSON MD ? Final Pathologic Diagnosis: ENDOMETRIUM, BIOPSY: - ??Proliferative endometrium with syncytial metaplasia and stromal breakdown. See comment. - ??Scant fragments of benign endocervical tissue. Comment: Manager Of Revenue sections of this case were reviewed at the intradepartmental consultation conference. Dr. Carney 05/06/2013 10:14 AM Document reviewed and electronically signed by: NANCY CARNEY MD Report ??Date: 05/07/2013 11:25 By the signature above, the attending physician certifies that he/she has personally conducted a gross and/or microscopic examination of the described specimens and rendered or confirmed the above diagnosis. Specimen(s) Received: Endometrial biopsy Clinical History: Perimenopausal menometrorrhagia; LMP: 04/26/13 Gross Description: ? Received in formalin labelled with proper patient identification (initials P, K) and endometrial biopsy is an aggregate of blood-tinged mucus and red-brown tissue (2 cc). Submitted in toto in block 1. Sujey Rivers 05/05/2013 08:33 AM End of Report [facility] 05/04/2013 21:3 6 EST 05/04/2013 21:36 EST us Smita Sheth MD PATHOLOGY ORDERABLES Final Resu lt [facility] [address] [place] [address] documented in this encounter Visit Diagnoses Not on filedocumented in this encounter Care Teams Tankerman Relationship Specialty Start Date End Date Unknown, Provider, PCP - General 03/13/12 05/05/13 documented as of this encounter
--- OUTSIDE RECORDS SUMMARY | 2024-05-26 13:17 | XMS_ITS | Encounter Summary ---
Author Organization [facility] Address [address] [place] [address] Care Team Providers Care Terrazzo Worker Name Role Phone Unavailable Primary Care Provider Unavailabl e Encounter Details Date Type Department Care Team (Late st Contact Info) Description 05/08/2006 Before PRISM Converted Visit (Maple) [facility] - Maple conversion [address], [place] [address] Mayela Khouyr MD [address] [facility], [facility] [address] [place] [address] Social History Tobacco Use Types Packs/Day Years Used Date Smoking Tobacco: Never Assessed Comments Unknown Sex and Gender Information Value Date Recorded Sex Assigned at Not on file Legal Sex Female 18:35 EST Gender Identity Not on file Sexual Orientation Not on file documented as of this encounter Progress Notes * Mayela Khoury MD - 05/22/2009 8374 EST DIVISION OF RHEUMATOLOGY - 05/08/2006 Daniel Gutierrez MD [address] Gutierrez: I had the great pleasure of seeing Ms. Nikia Steele in consultation for you today. I saw her with my physicians general office assistant, Irina Jones, and I confirmed the history and physical examination at the bedside. I agree with Ms. Patton and recommendations as outlined in her note. 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 Her physical exam today showed no obvious inflammation, although she had painful range of motion ofboth hips. Range of motion of the spine was intact, although chest expansion, I felt, was somewhat reduced. As you know, she has a low-titer positive FRANCES and a history of alopecia and redness over the cheeksand there was the question of the possibility of lupus. However, she looks like she has rosacea Sunny do not see any other rashes and she lacks a history of photosensitivity, so while it is a possibility, I think that lupus or other connective tissue disease is lower in mydifferential. I think it is more likely that this is either a recurrence of JRA or especially that perhapsrather than JRA, she actually has a spondyloarthropathy. Other possibilities include a myopathy or liver toxicity from the Lipitor, hypothyroidism, or some other metabolic reason for her pain. Obviously degen erative arthritis in the hips could also present with hip pain. We are going to run some additional laboratories, as well as get x-rays of the hips and SI joints and see what we find. In the meantime, I have decided to retry indomethacin which she had been on in the past with good effect as a child, although on 25 mg three times a day more recently, did not have as good effect. We will try a higher dose and see if that is helpful. Thank you very much for this consultation. We will let the patient know the results of her tests once we get them back. If you have any further questions or concerns, please let me know. Sincerely, Signed by Mayela Khoury MD 05/14/2006 10:15 Bautista De Jesus MD Mayela Khoury MD - Mayela Khoury MD P - mr Job ID: [id number] Document ID: [id number] cc: MD Irina Fernandez PA documented in this encounter Plan of Treatment Not on file documented as of this encounter Visit Diagnoses Not on filedocumented in this encounter
--- OUTSIDE RECORDS SUMMARY | 2024-05-26 13:17 | XMS_ITS | Clinical Summary ---
Author Organization [facility] Address [address] [place] [address] Care Team Providers Care Milk Deliverer Name Role Phone Moise Lala MD Primary Care Provider [phone] Social History Tobacco Use Types Packs/Day Years Used Date Smoking Tobacco: Never Assessed Interpersonal Safety Answer Date Record ed Physically Hurt Never 12/19/2019 Verbally Threaten Not on file 12/19/2019 Comments Unknown Sex and Gender Information Value Date Recorded Sex Assigned at Not on file Legal Sex Female 18:35 EST Gender Identity Not on file Sexual Orientation Not on file Plan of Treatment Health Maintenance Due Date Last Done Comments Hepatitis C Screen 1965 Social Determinants Of Health (SDOH) 1965 Lipid Profile Screening (Cholesterol) 1969 Depression Screening 1978 HIV Screening 1982 Advance Directive 1984 Preventive Care Visit 1984 Hepatitis B Vaccine (1 of 3 - 19+ 3-dose series) 1985 Pertussis (Adult) Immunization 1985 Tetanus (Adult) Immunization 1985 HPV/Cotest (Cervical Cancer Screening) 1996 Breast Cancer Screening 2006 Cologuard (Colon Cancer Screening) 11/30/2011 Colonoscopy (Colon Cancer Screening) 11/30/2011 Colorectal Cancer Screening 11/30/2011 FIT Test (Colon Cancer Screening) 11/30/2011 Sigmoidoscopy (Colon Cancer Screening) 11/30/2011 Shingles Immunization (1 of 2) 2016 Cervical Cancer Screening 07/24/2019 Pap Smear (Cervical Cancer Screening) 07/24/201911/2016, 03/11/2012 COVID-19 Vaccine ( season) 2024 Influenza Immunization (Adult) (#1) 2024 RETIRED Cervical Cancer Screening Discontinued 017, 03/11/2012 Procedures Procedure Name Priority Date/Time Associated Diagnosis Comments PAP TEST- RESULT ONLY Routine 07/23/2016 0:00 EST from Last 3 Months or Most Recently Relevant to Health Maintenance Results * PAP TEST- RESULT ONLY (07/23/2016 0:00 EST) Pathology Report: CYTOPATHOLOGY REPORT Reports generated via electronic interface contain original data; however they are lacking the format of the original report. Caution should be taken when reading/interpreti ng unformatted reports. Name: ? POLY DENTON ? Accession #: ? [id number] ? : ? 1965 (Age: 50) ??F ?Collect Date: ? 07/23/2016 ? Location: ? [facility] ? Receive Date: ? 07/24/2016 ? Provider: ALEC MERA [facility] Copy to: ? Final Report SPECIMEN ADEQUACY ? Satisfactory for Evaluation - transformation zone component absent GENERAL CATEGORIZATION ? Negative for Intraepithelial Lesion or Malignancy ?? Hormonal/Contracep tive status: None Specimen/Source: ??Pap Test, Cervix, ThinPrep Imaging System with manual evaluation Document reviewed and electronically signed by: ? THOMAS Lamar(ASCP) ? Report ??Date: 07/26/2016 13:39 HPV with Pap Test ? Date Ordered: ? 07/26/2016 ? Status: ?? Signed Out ?Date Complete: ? 07/29/2016 ? By: ??System Interface ? Date Reported: ? 07/29/2016 ? Interpretation RESULT: Negative for HPV. No E6 or E7 mRNA is detected from HPV types 16,18,31,33,35, 39,45,51,52,56,58, 59,66, and 68 by repairer pump mediated amplification. Comments Document reviewed and electronically signed by: ? System Interface ? Report date: 07/29/2016 By the signature above, the attending physician certifies that he/she has personally conducted a gross and/or microscopic examination of the described specimens and rendered or confirmed the above diagnosis. End of Report [facility] 07/23/2016 07/24/2016 Alec Mera [facility] PATHOLOGY ORDERABLES Final Res ult Performing Organization Address City/State/[facility] Co de Phone Number [facility] [address] [place] [address] from Last 3 Months or Most Recently Relevant to Health [place] [address] [place] [address] [place] [address] UMR Care Teams Milk Deliverer Relationship Specialty Start Date End Date Moise Lala MD [facility] [place] [place] [address] PCP - General 07/17/21
--- OUTSIDE RECORDS SUMMARY | 2024-05-26 13:17 | XMS_ITS | Encounter Summary ---
Author Organization [facility] Address [address] [place] [address] Care Team Providers Care Direct Selling Counselor Name Role Phone Unknown, Provider Primary Care Provider Moise Poole MD Primary Care Provider [phone] Encounter Details Date Type Department Care Team (Late st Contact Info) Description 10/18/2020 Lab Requisition [facility] Pathology & Laboratory Medicine - [facility] [address] [place] [address] Outr Resulting Lab, Provider Social History Tobacco [...] Procedure Name Priority Date/Time Associated Diagnosis Comments LYME AB Routine 10/18/2020 11:32 EDT documented in this encounter Results * LYME AB (10/18/2020 11:32 EDT) Lyme Ab Negative Negative 10/19/2020 11:09 EDT [facility] Comment:New 3rd generation a ssay in use 10/27/2019 Blood VENOUS BLOOD / Unknown 10/18/2020 11:32 EDT 10/18/2020 20:52 EDT us Provider Outr Resulting Lab IMMUNOLOGY AND SEROL OGY ORDERABLES Final Result [facility] [address] [place] [address] documented in this encounter Visit Diagnoses Not on filedocumented in this encounter Additional Health Concerns Infection Onset Date Last Indicated Resolved Time COVID-19 05/28/2021 05/28/2021 06/17/2021 22:1 5 EST documented as of this encounter Care Teams Direct Selling Counselor Relationship Specialty Start Date End Date Unknown, Provider, PCP - General 04/03/20 07/16/21 Moise Lala MD [address] [place] [address] PCP - General 07/17/21 documented as of this encounter
--- OUTSIDE RECORDS SUMMARY | 2024-05-26 13:17 | XMS_ITS | Encounter Summary ---
Author Organization [facility] Address [address] [place] [address] Care Team Providers Care Project Manager Industrial Name Role Phone Moise Lala MD Primary Care Provider [phone] Encounter Details Date Type Department Care Team (Late st Contact Info) Description 08/30/2021 Lab Requisition [facility] Pathology & Laboratory Medicine - [facility] [address] [place] [address] Jen Duran MD [address] [place] [address] [place] [address] Encounter for other general examination Social History Tobacco Use Types Packs/Day Years [...] Date/Time Associated Diagnosis Comments SURGICAL PATHOLOGY Today 08/29/2021 14 :29 EDT Encounter for other general examination documented in this encounter Results * SURGICAL PATHOLOGY (08/29/2021 14:29 EDT) Note to Patient The following pathology results have been interpreted by your pathologist and may be available to you before your health provider has had the opportunity to review them. Please allow time for your provider to receive these results and explore management options, if applicable. 09/03/2021 18:08 EDT [facility] Final Diagnosis A. GALLBLADDER, CHOLECYSTECTOMY: - Chronic cholecystitis. - Cholelithiasis. 09/03/2021 18:08 EDT [facility] Attestation There was significant resident/fellow involvement in the diagnostic evaluation of this case. By the signature below, the attending physician certifies that they have personally conducted a gross and/or microscopic examination of the described specimens and rendered or confirmed the above diagnosis. 09/03/2021 18:08 T [facility] at 1808 Clinical History Cholecystitis 09/03/2021 18:08 EDT [facility] Gross Description A. Received in formalin labelled with proper patient identification (initials P, K) and gallbladder is an intact gallbladder with an attached segment of cystic duct (8.2 x 3.5 x 2.0 cm). A cystic duct lymph node is not present. The serosa is smooth and pink-yellow. The mucosa is velvety, vieira-green and the wall is 0.2 cm in thickness. The cystic duct lumen is patent and measures 0.3 cm in diameter. The cystic duct margin is inked blue. Multiple smooth to jagged yellow-green calculi are present (3.5 x 3.1 x 1.0 cm in aggregate). Two sales representative wire rope sections and the en face cystic duct margin are submitted in A1. OTILIA HILL([facility]) 08/30/2021 10:35 09/03/2021 18:08 T [facility] Resident/Kee w: Gely Mcleod MD PhD 09/03/2021 18:08 T [facility] Performing Lab [facility] 09/03/2021 18:08 T [facility] Scanned Images 09/03/2021 18:08 T [facility] Tissue ENTIRE GALLBLADDER / Unknown 08/29/2021 14:29 EDT 08/30/2021 8:50 EDT us Jen Duran MD PATHOLOGY ORDERABLES Fin al Result [facility] [address] [place] [id number] documented in this encounter Visit Diagnoses Diagnosis Encounter for other general examination documented in this encounter Care Teams Project Manager Industrial Relationship Specialty Start Date End Date Moise Lala MD [address] [place] [address] PCP - General 07/17/21 documented as of this encounter
--- OUTSIDE RECORDS SUMMARY | 2024-05-26 13:17 | XMS_ITS | Encounter Summary ---
Author Organization [facility] Address [address] [place] [address] Care Team Providers Care Adjunct Physical Education Instructor Name Role Phone Unavailable Primary Care Provider Unavailabl e Encounter Details Date Type Department Care Team (Late st Contact Info) Description 05/08/2006 8:[address] [facility] [address] [place] [address] Irina Jones PA-C [address] [place], [place] [address] Social History Tobacco Use Types Packs/Day Years [...] Procedure Name Priority Date/Time Associated Diagnosis Comments URINALYSIS WITH MICROSCOPIC IF POSITIVE Routine 05/08/2006 10:54 EST UA REFLEX Routine 05/08/2006 10:54 EST SS-B (LA) ANTIBODY, IGG Routine 05/08/2006 10:53 EST ZZHN SSA ANTIBODIES BY JAME Routine 05/08/2006 10:53 EST HLA B27 SCREEN, DNA Routine 05/08/2006 1 0:53 EST COMPLETE BLOOD COUNT AND DIFFERENTIAL Routine 05/08/2006 10:53 EST TSH Routine 05/08/2006 10:53 EST CK Routine 05/08/2006 10:53 EST COMPREHENSIVE METABOLIC PANEL (CMP) Routine 05/08/2006 10:53 EST HIPS PEDRO W/AP PEL 2+ VIEWS 05/08/2006 10:22 EST documented in this encounter Results * UA REFLEX (05/08/2006 10:54 EST) UA Billing Microscopic not indicated. [facility] 05/08/2006 10:5 4 EST 05/08/2006 10:55 EST Irina BINGHAM-C URINALYSIS ORDERABLES Final Resu lt Performing Organization Address City/[facility] Co de Phone Number [facility] [address] [place] [address] * (ABNORMAL) URINALYSIS (05/08/2006 10:54 EST) Color, UA Yellow [facility] Clarity, UA Hazy [facility] Glucose, UA Norm NORM [facility] Bilirubin, UA Neg NEG [facility]LET[facility] Ketones, UA Neg NEG [facility] Specific Sharon, Urine >1.030(H) 1.005 - 1.02 [facility] Blood, UA Neg NEG [facility] pH, UA 5.5 5.0 - 9.0 [facility] Protein, UA Neg NEG [facility] Urobilinogen, UA Norm NORM mg/dL [facility] Nitrite, UA Neg NEG [facility] Leuk Esterase Neg NEG [facility] Refractometer SG,Urine 1.026(H) 1.005 - 1.02 [facility] 05/08/2006 10:5 4 EST 05/08/2006 10:55 EST Irina Jones PA-C URINALYSIS ORDERABLES Final Resu lt Performing Organization Address City/State/[facility] Co de Phone Number [facility] [address] [place] [address] * TSH (05/08/2006 10:53 EST) Pathologist [facility] TSH 1.66 0.35 - 5.00 uIU/mL [facility] 05/08/2006 10:5 3 EST 05/08/2006 10:54 EST Irina Jones PA-C CHEMISTRY & BLOOD GAS ORDERABLES Final Result Performing Organization Address [facility] de Phone Number [facility] [address] [place] [address] * SS-B/LA ANTIBODY, IGG, SERUM (05/08/2006 10:53 EST) [facility] Autoantibodies to SS B/La 2.1Unit: U(Note) -- EXPECTED VALUES -- ? (Ref Range) <25.0 ? Test Performed by: ? [facility] Pathology ? [address] , [place] [address] ? House Wirer Helper: He Kyle III, M.D. ? [facility] 05/08/2006 10:5 3 EST 05/08/2006 10:54 EST us Irina Jones PA-C IMMUNOLOGY AND SEROLOGY ORDERABL ES Final Result [facility] [address] [place] [address] * SS-A/RO ANTIBODY, IGG, SERUM (05/08/2006 10:53 EST) Autoantibodies to SS A/Ro 1.5Unit: U(Note) -- EXPECTED VALUES -- ? (Ref Range) <25.0 ? Test Performed by: ? [facility] Pathology ? [address] [place] [address] ? House Wirer Helper: He Kyle III, M.D. ? [facility] 05/08/2006 10:5 3 EST 05/08/2006 10:54 EST us Irina Jones PA-C IMMUNOLOGY AND SEROLOGY ORDERABL ES Final Result [facility] [address] [place] [address] * (ABNORMAL) COMPREHENSIVE METABOLIC PANEL (05/08/2006 10:53 EST) Potassium 4.2 3.5 - 5.0 mEq/L [facility] Sodium 141 136 - 145 mEq/L [facility] Chloride 105 96 - 110 mEq/L [facility] CO2 22(L) 24 - 32 mEq/L [facility] Total Alkaline Phosphatase 98 38 - 126 U/L [facility] Bilirubin, Total <0.5 0.2 - 1.3 mg/dl [facility] AST 25 15 - 46 U/L [facility] ALT 48 9 - 52 U/L [facility] Albumin 4.2 3.4 - 4.9 g/dl [facility] Total Protein 7.3 6.5 - 8.3 g/dl [facility] Creatinine 0.79 0.7 - 1.5 mg/dl [facility] GFR, Calculated >60 ml/min/1.7 3m2 [facility] BUN 16 10 - 26 mg/dl [facility] Calcium 9.6 8.5 - 10.5 mg/dl [facility] Calculated Calcium 9.8 8.5 - 10.5 mg/dl [facility] Glucose, Serum 91 70 - 100 mg/dl [facility] Fasting? No [facility] Albumin/Globulin Ratio 1.4 [facility] 05/08/2006 10:5 3 EST 05/08/2006 10:54 EST Irina Jones PA-C CHEMISTRY & BLOOD GAS ORDERABLES Final Result Performing Organization Address [facility] de Phone Number [facility] [address] [place] [address] * CK (05/08/2006 10:53 EST) CK 68 30 - 135 U/L [facility] 05/08/2006 10:5 3 EST 05/08/2006 10:54 EST Irina BINGHAM-C CHEMISTRY & BLOOD GAS ORDERABLES Final Result Performing Organization Address City/[facility]/ZIP Co de Phone Number [facility] [address] [place] [address] * (ABNORMAL) HEMAGRAM AND DIFFERENTIAL (05/08/2006 10:53 EST) Pathologist [facility] WBC 10.17 4.0 - 12.4 K/cmm [facility] RBC 4.41 3.86 - 5.04 M/cmm [facility] Hemoglobin 13.5 11.6 - 15.2 gm/dl [facility] HCT 39.4 34.9 - 44.4 % [facility] MCV 89 81 - 98 fl [facility] MCH 30.6 26.7 - 33.3 pg [facility] MCHC 34.2 32.1 - 35.9 gm/dl [facility] PLT 383(H) 141 - 320 K/cmm [facility] RDW-CV 13.7 11.7 - 14.6 % [facility] % Neutrophils 62.1 45.5 - 79.7 % [facility] % Lymphocytes 28.2 15.0 - 46.8 % [facility] % Monocytes 6.7 1.8 - 12.0 % [facility] % Eosinophils 1.7 0.6 - 6.9 % [facility] % Basophils 1.3 0.2 - 1.4 % [facility] ABS Neutrophils 6.33 2.20 - 8.85 K/cmm [facility] ABS Lymphs 2.87 1.09 - 3.30 K/cmm [facility] ABS Monocytes 0.68 0.1 - 0.8 K/cmm [facility] ABS Eosinophils 0.17 0.03 - 0.61 K/cmm [facility] ABS Basophils 0.13(H) 0.01 - 0.11 K/cmm [facility] Type of Diff: Automated [facility] 05/08/2006 10:5 3 EST 05/08/2006 10:54 EST Irina Jones PA-C PACKAGES & DNA PROBE ORDERABLES Final Result [facility] [address] [place] [address] * HLA B27 (05/08/2006 10:53 EST) Pathologist [facility] HLA B27 HLA B27 not identified [facility] 05/08/2006 10:5 3 EST 05/08/2006 10:54 EST Irina Jones PA-C TISSUE TYPING ORDERABLES Final R esult [facility] [address] [place] [address] * HIPS PEDRO W/AP PEL 2+ VIEWS (05/08/2006 10:22 EST) Anatomical Region Laterality Modality Other 05/08/2006 10:2 2 EST Narrative 11/26/2008 2:34 EDT HIP PAIN PROBLEM STATEMENT: ??Hip pain. EXAMINATION: ??BILATERAL HIPS WITH AP PELVIS, FIVE VIEWS: 05/08/2006 IMPRESSION: ??Negative. DESCRIPTION: ??An AP view of the pelvis and AP and frog-leg lateral views of each hip. ??Normal. [id number] D: ??05/09/2006 15:17 T: ??05/13/2006 07:41 Procedure Note Yosvany Trevino MD - 11/26/2008 HIP PAIN PROBLEM STATEMENT: Hip pain. EXAMINATION: BILATERAL HIPS WITH AP PELVIS, FIVE VIEWS: 05/08/2006 IMPRESSION: Negative. DESCRIPTION: An AP view of the pelvis and AP and frog-leg lateral views of each hip. Normal. [id number]/josé [id number] Irina Jones PA-C IMG DIAGNOSTIC IMAGING ORDERABLE S Final Result documented in this encounter Visit Diagnoses Not on filedocumented in this encounter Additional Health Concerns Infection Onset Date Last Indicated Resolved Time COVID-19 05/28/2021 05/28/2021 06/17/2021 22:1 5 EST documented as of this encounter
--- OUTSIDE RECORDS SUMMARY | 2024-05-26 13:17 | XMS_ITS | Encounter Summary ---
Author Organization [facility] Address [address] [place] [address] Care Team Providers Care House Registry Rn Name Role Phone Buster Campos APRN Primary Care Provider [phone] Encounter Details Date Type Department Care Team (Late st Contact Info) Description 07/23/2016 Results Only [facility] Adult Primary Care - [address] [address] Alec Mera FNP [address] [place], [place] [id number] Social History Tobacco Use Types Packs/Day Years [...] TEST- RESULT ONLY Routine 07/23/2016 0:00 EST documented in this encounter Results * PAP TEST- RESULT ONLY (07/23/2016 0:00 EST) Pathology Report: CYTOPATHOLOGY REPORT Reports generated via electronic interface contain original data; however they are lacking the format of the original report. Caution should be taken when reading/interpreti ng unformatted reports. Name: ? POLY DENTON ? Accession #: ? [id number] ? : ? 1965 (Age: 50) ??F ?Collect Date: ? 07/23/2016 ? Location: ? [facility] ? Receive Date: ? 07/24/2016 ? Provider: ALEC MERA CYBER SECURITY MANAGER Copy to: ? Final Report SPECIMEN ADEQUACY ? Satisfactory for Evaluation - transformation zone component absent GENERAL CATEGORIZATION ? Negative for Intraepithelial Lesion or Malignancy ?? Hormonal/Contracep tive status: None Specimen/Source: ??Pap Test, Cervix, ThinPrep Imaging System with manual evaluation Document reviewed and electronically signed by: ? Monae Holloway, CT(ASCP) ? Report ??Date: 07/26/2016 13:39 HPV with Pap Test ? Date Ordered: ? 07/26/2016 ? Status: ?? Signed Out ?Date Complete: ? 07/29/2016 ? By: ??System Interface ? Date Reported: ? 07/29/2016 ? Interpretation RESULT: Negative for HPV. No E6 or E7 mRNA is detected from HPV types 16,18,31,33,35, 39,45,51,52,56,58, 59,66, and 68 by tire adjuster mediated amplification. Comments Document reviewed and electronically signed by: ? System Interface ? Report date: 07/29/2016 By the signature above, the attending physician certifies that he/she has personally conducted a gross and/or microscopic examination of the described specimens and rendered or confirmed the above diagnosis. End of Report [facility] 07/23/2016 07/24/2016 us Alec Ede CYBER SECURITY MANAGER PATHOLOGY ORDERABLES Final Res ult [facility] [address] [place] [address] documented in this encounter Visit Diagnoses Not on filedocumented in this encounter Care Teams House Registry Rn Relationship Specialty Start Date End Date Buster Campos APRN [address] [place] [id number] PCP - General 05/06/13 07/25/19 documented as of this encounter
--- OUTSIDE RECORDS SUMMARY | 2024-05-26 13:17 | XMS_ITS | Encounter Summary ---
Author Organization [facility] Address [address] [place] [address] Care Team Providers Care Farmworker Bulbs Name Role Phone Unknown, Provider MD Primary Care Provider Unava ilable Encounter Details Date Type Department Care Team (Late st Contact Info) Description 04/03/2020 Results Only [facility] - Main [address] [id number] Unknown, Provider, Social History Tobacco Use Types Packs/Day Years [...] Date/Time Associated Diagnosis Comments SURGICAL PATHOLOGY Routine 04/03/2020 documented in this encounter Results * SURGICAL PATHOLOGY (04/03/2020) 04/03/2020 04/04/2020 13: 42 EST Narrative [facility] - 04/05/2020 13:55 EST ----- ------- Name: POLY DENTON ? : [birth year] ?Age/Sex: 54/F ?Unit#: [id number] ? Loc: LAB.POP ? Status: REG REF ?? Reg Date: 04/03/20 ? Pt.Phone Number: ? ----- ------- Specimen: [id number] ? STATUS: SOUT ?Spec Date:04/03/20 ? Physician Copies: ?NONE,NONE ? Tissues: A ?? Endoscopy specimen (RECTAL POLYP) ?ELMA TIRADO ? B ?? Endoscopy specimen (CECUM POLYP X 2) ? EAMON COLON ? C ?? Endoscopy specimen (SIGMOID POLYP X 3) ? CPT: 12846 ?? Units: ??3 ?FINAL DIAGNOSIS ? A. RECTUM, POLYP, BIOPSY: ? - Hyperplastic polyp. ? B. COLON, CECUM, POLYPS X2, BIOPSY: ? - Tubular adenomas. ? C. COLON, SIGMOID, POLYPS X3, BIOPSY; ? - Hyperplastic polyps. ----- ------- ?COMMENT ? [id number] ? GROSS DESCRIPTION ? Received in formalin in three containers, each labeled with proper patient ? identification (initials P,K). ? A. ??Labeled rectal polyp are two fragments of vieira tissue measuring 0.3 cm and ? 0.4 cm in greatest dimension. ??The specimens are submitted in A. ? B. ??Labeled cecum polyp x 2 are five fragments of vieira tissue measuring 0.2 cm ? and 0.3 cm in greatest dimension. ??The specimens are submitted in B. ? C. ??Labeled sigmoid polyp x 3 are four fragments of vieira tissue; each ? measuring 0.2 x 0.2 x 0.2 cm. The specimens are submitted in C. ??/KD Signed ____(signature on file)____ Carolina Vaughn 04/05/20 ? By the signature above, the attending physician certifies that he/she has personally conducted a gross and/or microscopic examination of the described specimens and rendered or confirmed the above diagnosis. Test Performed by [facility], [address] [place] [address] Production Foreman: Ginger Pierre MD PHD ----- ------- us Provider Unknown PATHOLOGY ORDERABLES Final R esult [facility] [address] [place] [address] documented in this encounter Visit Diagnoses Not on filedocumented in this encounter Care Teams Farmworker Bulbs Relationship Specialty Start Date End Date Unknown, Provider, PCP - General 04/03/20 07/16/21 documented as of this encounter
--- OUTSIDE RECORDS SUMMARY | 2024-05-26 13:17 | XMS_ITS | Referral Summary ---
Author Organization [facility] Address [address] [place] [address] Care Team Providers Care Clerical And Administrative Workers Name Role Phone Moise Lala MD Primary Care Provider [phone] Social History Tobacco Use Types Packs/Day Years Used Date Smoking Tobacco: Never Assessed Interpersonal Safety Answer Date Record ed Physically Hurt Never 12/19/2019 Verbally Threaten Not on file 12/19/2019 Comments Unknown Sex and Gender Information Value Date Recorded Sex Assigned at Not on file Legal Sex Female 18:35 EST Gender Identity Not on file Sexual Orientation Not on file Plan of Treatment Not on file Procedures Procedure Name Priority Date/Time Associated Diagnosis [...] ? POLY DENTON ? Accession #: ? [id number] ? : ? 1965 (Age: 50) ??F ?Collect Date: ? 07/23/2016 ? Location: ? [facility] ? Receive Date: ? 07/24/2016 ? Provider: ALEC SEPULVEDA Copy to: ? Final Report SPECIMEN ADEQUACY [...] types 16,18,31,33,35, 39,45,51,52,56,58, 59,66, and 68 by tape maker mediated amplification. Comments Document reviewed and electronically signed by: ? System Interface ? Report date: 07/29/2016 By the signature above, the attending physician certifies that he/she has personally conducted a gross and/or microscopic examination of the described specimens and rendered or confirmed the above diagnosis. End of Report [facility] 07/23/2016 07/24/2016 us Alec SEPULVEDA PATHOLOGY ORDERABLES Final Res ult [facility] [address] [place] [address] from Last 3 Months or Most Recently Relevant to Health Maintenance Insurance [employer] [place] [place] [id number] Care Teams Clerical And Administrative Workers Relationship Specialty Start Date End Date Moise Lala MD [address] [place] [address] PCP - General 07/17/21
--- OUTSIDE RECORDS SUMMARY | 2024-05-26 13:17 | XMS_ITS | Encounter Summary ---
Author Organization [facility] Address [address] [place] [address] Care Team Providers Care Supervisor Reinforced Steel Placing Name Role Phone Unknown, Provider Primary Care Provider Moise Poole MD Primary Care Provider [phone] Encounter Details Date Type Department Care Team (Late st Contact Info) Description 10/20/2020 Lab Requisition [facility] Pathology & Laboratory Medicine - [facility] [address] [place] [address] Outr Resulting Lab, Provider Social History Tobacco [...] Date/Time Associated Diagnosis Comments LYME AB Routine 10/20/2020 12:39 EDT documented in this encounter Results * LYME AB (10/20/2020 12:39 EDT) Lyme Ab Negative Negative 10/23/2020 10:47 EDT [facility] Comment:New 3rd generation a ssay in use 10/27/2019 Blood VENOUS BLOOD / Unknown 10/20/2020 12:39 EDT 10/20/2020 20:46 EDT us Provider Outr Resulting Lab IMMUNOLOGY AND SEROL OGY ORDERABLES Final Result [facility] [address] [place] [address] documented in this encounter Visit Diagnoses Not on filedocumented in this encounter Additional Health Concerns Infection Onset Date Last Indicated Resolved Time COVID-19 05/28/2021 05/28/2021 06/17/2021 22:1 5 EST documented as of this encounter Care Teams Supervisor Reinforced Steel Placing Relationship Specialty Start Date End Date Unknown, Provider, PCP - General 04/03/20 07/16/21 Moise Lala MD [address] [place] [facility] [place] [address] PCP - General 07/17/21 documented as of this encounter
--- OUTSIDE RECORDS SUMMARY | 2024-05-26 13:17 | XMS_ITS | Encounter Summary ---
Author Organization [facility] Address [address] [place] [address] Care Team Providers Care Labor Contract Analyst Name Role Phone Unknown, Provider Primary Care Provider Unava ilable Encounter Details Date Type Department Care Team (Latest Contact Info) Description 05/04/2013 14:27 EST - 05/04/2013 23:59 EST Hospital Encounter [address] [address] Unknown, Provider, Discharge Disposition: Home or Self Care Social [...] Code Departure Means Destination Home or Self Half-Way documented in this encounter Plan of Treatment Not on file documented as of this encounter Visit Diagnoses Not on filedocumented in this encounter Care Teams Labor Contract Analyst Relationship Specialty Start Date End Date Unknown, Provider, PCP - General 03/13/12 05/05/13 documented as of this encounter
--- OUTSIDE RECORDS SUMMARY | 2024-05-26 13:17 | XMS_ITS | Encounter Summary ---
Author Organization [facility] Address [address] [place] [address] Care Team Providers Care Case Briefer Name Role Phone Unavailable Primary Care Provider Unavailabl e Encounter Details Date Type Department Care Team (Late st Contact Info) Description 09/24/2004 Results Only [facility] [place] [facility] [address] [place] [address] Eamon Fernandez, DMD [address] [place] [address] Social History Tobacco Use Types Packs/Day Years [...] Date/Time Associated Diagnosis Comments SURGICAL PATHOLOGY Routine 09/24/2004 0:00 EDT documented in this encounter Results * SURGICAL PATHOLOGY (09/24/2004 0:00 EDT) Pathology Report: SURGICAL PATHOLOGY REPORT Reports generated via electronic interface contain original data; however they are lacking the format of the original report. Caution should be taken when reading/interpreti ng unformatted reports. Name: ? YESSENIAPOLY ? Accession #: ? [id number] ? : ? 1965 (Age: 38) ??F ? Collect Date: ? 09/24/2004 ? Location: ? [facility] ? Receive Date: ? 09/25/2004 ? Provider: EAMON FERNANDEZ DMD Copy to: ZAMZAM MEYERS DMD, EAMON Schneider ? Final Pathologic Diagnosis: ? Mucosa of lip, right lower, excision: - Mucocele. Document reviewed and electronically signed by: Gordo Robbins MD Report ??Date: 09/27/2004 08:52 By the signature above, the attending physician certifies that he/she has personally conducted a gross and/or microscopic examination of the described specimens and rendered or confirmed the above diagnosis. Specimen(s) Received: ? Mass R lower lip Clinical History: ? Large, excised size approximately 2.5 cm translucent; virtually pathognomonic for large mucocele; duration approximately 6 months, steadily enlarging; R/O other; clinical diagnosis code: 527.6 Gross Description: ? Received in formalin labelled [place] and right lower lip/vestibule is an unoriented skin ellipse measuring 1.2 x 0.9 cm and is excised to a depth of 1.0 cm. ??There is a cyst directly beneath the mucosal surface which measures 1.2 cm in diameter. ??The specimen is black inked, serially sectioned and entirely submitted as follows: BLOCK SHEPARD A1 ?Distal tip, reverse en face A2 ?Central sections (Dr. Browne-SHI)/mpl End of Report [facility] 09/24/2004 09/25/2004 13: 03 EDT us Eamon Fernandez DMD PATHOLOGY ORDERABLES Final Resu lt [facility] [address] [place] [address] documented in this encounter Visit Diagnoses Not on filedocumented in this encounter
--- OUTSIDE RECORDS SUMMARY | 2024-05-26 13:17 | XMS_ITS | Encounter Summary ---
Author Organization [facility] Address [address] [place] [address] Care Team Providers Care C.O.D. Biller Name Role Phone Buster Campos APRN Primary Care Provider [phone] Encounter Details Date Type Department Care Team (Late st Contact Info) Description 06/11/2017 Results Only [facility] [phone] Eamon Lala MD [address] [place], [place] [id number] Social History Tobacco Use Types Packs/Day Years [...] Date/Time Associated Diagnosis Comments SURGICAL PATHOLOGY Routine 06/11/2017 16 :24 EST documented in this encounter Results * SURGICAL PATHOLOGY (06/11/2017 16:24 EST) Pathology Report: SURGICAL PATHOLOGY REPORT Reports generated via electronic interface contain original data; however they are lacking the format of the original report. Caution should be taken when reading/interpret ing unformatted reports. Name: ? POLY DENTON ? Accession #: ? [id number] ? : ? 1965 (Age: 51) ??F ? Collect Date: ? 06/11/2017 ? Location: ? [facility] ? Receive Date: ? 06/12/2017 ? Provider: EAMON LALA MD Copy to: ? Final Pathologic Diagnosis: ENDOMETRIUM, BIOPSY: - ?Rare minute superficial strip of lower uterine segment. See comment. - ? Fragments of benign endocervix and reactive squamous metaplasia. Comment: Deeper levels were examined. The lack of sufficient endometrial tissue precludes endometrial dating and evaluation for hyperplasia and neoplasia. Document reviewed and electronically signed by: JOHN IZAGUIRRE MD Report ??Date: 06/17/2017 13:22 By the signature above, the attending physician certifies that he/she has personally conducted a gross and/or microscopic examination of the described specimens and rendered or confirmed the above diagnosis. Specimen(s) Received: Endometrial biopsy Clinical History: Abnormal uterine bleed associated with estrogen cream Gross Description: ? Received in formalin labelled with proper patient identification (initials P, K) and not otherwise specified is an aggregate of hemorrhage (1.5 x 1.4 x 0.3 cm). The specimen is submitted entirely in 1. OTILIA Patel (ASCP) 06/12/2017 4:50 PM End of Report [facility] 06/11/2017 16:2 4 EST 06/12/2017 16:24 EST us Eamon Lala MD PATHOLOGY ORDERABLES Final Resul t [facility] [address] [place] [address] documented in this encounter Visit Diagnoses Not on filedocumented in this encounter Care Teams C.O.D. Biller Relationship Specialty Start Date End Date Buster Campos APRN [address] [place] [id number] PCP - General 05/06/13 07/25/19 documented as of this encounter
--- OUTSIDE RECORDS SUMMARY | 2024-05-26 13:17 | XMS_ITS | Encounter Summary ---
Author Organization [facility] Address [address] [place] [address] Care Team Providers Care Sterilizer Machine Operator Name Role Phone Unknown, Provider Primary Care Provider Moise Poole MD Primary Care Provider [phone] Encounter Details Date Type Department Care Team (Late st Contact Info) Description 05/28/2021 Lab Requisition [facility] Pathology & Laboratory Medicine - [address] [address] Outr Resulting Lab, Provider Social History Tobacco [...] Priority Date/Time Associated Diagnosis Comments ZZCOVID-19 TEST [facility] PCR Today 05/28/2021 13:40 EST COVID-19 TESTING Routine 05/28/2021 13:4 0 EST documented in this encounter Results * COVID-19 TEST [facility] PCR (05/28/2021 13:40 EST) Swab 05/28/2021 13:4 0 EST 05/28/2021 21:47 EST us Provider Outr Resulting Lab MICROBIOLOGY - GENER AL ORDERABLES Final Result [facility] [address] [place] [address] * (ABNORMAL) COVID-19 TESTING (05/28/2021 13:40 EST) COVID-19 rt-PCR Result Positive(AA ) Negative 05/29/2021 13:23 EST [facility] Comment: This test has [...] the authorization is terminated or revoked sooner. Performed on the [employer] Fusion instrument Performing Lab [facility] 05/29/2021 13:23 EST [facility] Swab 05/28/2021 13:4 0 EST 05/28/2021 21:47 EST us Provider Outr Resulting Lab MICROBIOLOGY - GENER AL ORDERABLES Final Result [facility] [address] [place] [address] documented in this encounter Visit Diagnoses Not on filedocumented in this encounter Additional Health Concerns Infection Onset Date Last Indicated Resolved Time COVID-19 05/28/2021 05/28/2021 06/17/2021 22:1 5 EST documented as of this encounter Care Teams Sterilizer Machine Operator Relationship Specialty Start Date End Date Unknown, Provider, PCP - General 04/03/20 07/16/21 [place] [address] PCP - General 07/17/21 documented as of this encounter
--- OUTSIDE RECORDS SUMMARY | 2024-05-26 13:17 | XMS_ITS | Encounter Summary ---
Author Organization [facility] Address [address] [place] [address] Care Team Providers Care Chemical Dependency Counselor Name Role Phone Moise Lala MD Primary Care Provider [phone] Encounter Details Date Type Department Care Team (Late st Contact Info) Description 07/11/2022 Lab Requisition [facility] Pathology & Laboratory Medicine - [facility] [address] [place] [address] Moise Lala MD [address] [place] [address] [place] [address] Encounter for other general examination Social [...] Date/Time Associated Diagnosis Comments SURGICAL PATHOLOGY Today 07/10/2022 15 :25 EST Encounter for other general examination documented in this encounter Results * SURGICAL PATHOLOGY (07/10/2022 15:25 EST) Note to Patient The following pathology results have been interpreted by your pathologist and may be available to you before your health provider has had the opportunity to review them. Please allow time for your provider to receive these results and explore management options, if applicable. 07/15/2022 15:31 EST [facility] Final Diagnosis A. SKIN OF BUTTOCK, LEFT, EXCISION: - Follicular cyst, infundibular type. 07/15/2022 15:31 [facility] Attestation By the signature below, the attending physician certifies that they have 1) personally conducted a gross and/or microscopic examination of the described specimen(s), and/or personally interpreted the results of laboratory testing of the described specimen(s), and 2) personally rendered or confirmed the above diagnosis. 07/15/2022 15:31 [facility] at 1531 Microscopic Description There is a dermal cyst that is lined by stratified squamous epithelium that matures through a granular layer. The cyst is filled with laminated orthokeratin. 07/15/2022 15:31 [facility] Clinical History Slightly purple growing dermal nodule, no head, cyst not obviously sebaceous; punctured after removal 07/15/2022 15:31 [facility] Gross Description A. Received in formalin labelled with proper patient identification (initials P, K) and ? L buttocks? is an unoriented elliptical excision of vieira-white skin (2.9 x 1.7 cm, excised to a depth of 0.9 cm). The central skin surface is vieira-mckeon and slightly scaly with an area of 1.8 x 1.2 cm. The margin is inked blue. The specimen is sectioned revealing a well-circumscribe d cystic structure (1.8 x 1.4 x 0.8 cm) filled with vieira-mckeon soft friable material. The cyst has a smooth inner lining and a wall thickness less than 0.1 cm. Two sales development representative sections are submitted in A1. OTILIA SAUER(ASCP) 07/12/2022 8:43 07/15/2022 15:31 [facility] Performing Lab [facility] 07/15/2022 15:31 [facility] Scanned Images 07/15/2022 15:31 [facility] Tissue TISSUE SPECIMEN FROM SKIN / Unknown 07/10/2022 15:25 EST 07/11/2022 17:04 EST Moise Lala MD PATHOLOGY ORDERABLES Final Resul t [facility] [address] [place] [address] documented in this encounter Visit Diagnoses Diagnosis Encounter for other general examination documented in this encounter Care Teams Chemical Dependency Counselor Relationship Specialty Start Date End Date Moise Lala MD [address] [place] [address] PCP - General 07/17/21 documented as of this encounter
--- OUTSIDE RECORDS SUMMARY | 2024-05-26 13:17 | XMS_ITS | Encounter Summary ---
Author Organization [facility] Address [address] [place] [address] Care Team Providers Care Mixing Plant Dumper Name Role Phone Moise Lala MD Primary Care Provider [phone] Encounter Details Date Type Department Care Team (Late st Contact Info) Description 09/19/2022 Lab Requisition [facility] Pathology & Laboratory Medicine - [facility] [address] [place], [place] [id number] Outr Resulting Lab, Provider Social History Tobacco [...] Procedure Name Priority Date/Time Associated Diagnosis Comments CELIAC DISEASE PANEL Routine 09/18/2022 9:45 EDT documented in this encounter Results * CELIAC DISEASE PANEL (09/18/2022 9:45 EDT) Tissue Transglutaminase Antibody IGA <1.2 <4.0 U/mL 09/23/2022 13:16 EDT [facility] Comment: A negative result may be due to IgA deficiency and does not rule out celiac disease. ? Negative: ??<4.0 U/mL ? Weak Positive: ??4.0 - 10.0 U/mL ? Positive: ??>10.0 U/mL Results were obtained with the [employer] QUANTA Lite R h-tTG IgA JAME assay on the Pond5 DSX. IgA 233 85 - 499 mg/dL 09/23/2022 13:16 EDT [facility] Celiac Disease Interpretation Negative Serology. Celiac disease unlikely. Approximately 10% of patients with celiac disease are seronegative. Patients who are already adhering to a gluten-free diet may also be seronegative. If celiac disease is highly clinically suspected, referral to gastroenterology for additional evaluation is recommended. 09/23/2022 13:16 EDT [facility] Blood VENOUS BLOOD / Unknown 09/18/2022 9:45 EDT 09/19/2022 17:24 EDT us Provider Outr Resulting Lab IMMUNOLOGY AND SEROL OGY ORDERABLES Final Result Performing Organization Address City/State/[facility] Co de Phone Number [facility] [address] [place] [address] documented in this encounter Visit Diagnoses Not on filedocumented in this encounter Care Teams Mixing Plant Dumper Relationship Specialty Start Date End Date Moise Lala MD [facility] [place] [address] PCP - General 07/17/21 documented as of this encounter
--- OUTSIDE RECORDS SUMMARY | 2024-05-26 13:18 | XMS_ITS | Encounter Summary ---
Author Organization [facility] [place] [address] Care Team Providers Care Supervisor Mail Carriers Name Role Phone Twan Pruitt Primary Care Provider + Reason for Referral * Diagnostic Test (Routine) - Closed Specialty Diagnoses / Procedures Referred By Contac t Referred To Contact Radiology Diagnoses HFrEF (heart failure with reduced ejection fraction) Family history of premature CAD Procedures MRI Cardiac Morphology Function and Stress wwo Contrast Shane Romano MD [facility] [place] [address] [place] [address] Referral ID Status Reason Start Date Expiration Date V isits Requested Visits Authorized [id number] Closed Specialty Service Requested 04/16/2023 10/14/2024 1 1 Reason for Visit * Diagnostic Test (Routine) - Closed Specialty Diagnoses / Procedures Referred By Contac t Referred To Contact Radiology Diagnoses HFrEF (heart failure with reduced ejection fraction) Family history of premature CAD Procedures MRI Cardiac Morphology Function and Stress wwo Contrast Shane Romano MD [facility] [place] [address] [place] [address] Referral ID Status Reason Start Date Expiration Date V isits Requested Visits Authorized [id number] Closed Specialty Service Requested 04/16/2023 10/14/2024 1 1 Encounter Details Date Type Department Care Team (Late st Contact Info) Description 02/16/2024 8:41 AM EDT - 02/16/2024 11:59 PM EDT Hospital [facility] [place] [address] Giselle Nelson MD LBBB (left bundle branch block); HFrEF (heart failure with reduced ejection fraction); Family history of premature CAD Discharge Disposition: Home Social History Tobacco Use Types Packs/Day Years Used Date Smoking Tobacco: Every Day Cigarettes Smokeless Tobacco: Never Alcohol Use Standard Drinks/Week Comments No 0 (1 standard drink = 0.6 oz pur e alcohol) Sex and Gender Information Value Date Recorded Sex Assigned at Not on file Gender Identity Not on file Sexual Orientation Not on file documented as of this encounter Medications at Time of Discharge Medication Sig Dispensed Refills Start Date End Date pantoprazole EC (Protonix) [address] tablet Take 1 tablet by mouth daily. 180 tablet 3 08/21/2023 insulin detemir U-100 (Levemir) 100 unit/mL Solution Inject subcutaneously nightly. Jardiance 10 mg tablet Take 10 mg by mouth daily. 03/11/2023 pregabalin (Lyrica) 150 mg capsule Take 150 mg by mouth 2 times daily. 03/10/2023 losartan (Cozaar) 25 mg Tablet 08/21/2021 sertraline (ZOLOFT) 100 mg Tablet 09/13/2021 acetaminophen (TYLENOL) 325 mg Tablet Take 2 tablets by mouth every 6 hours as needed for Pain. 30 tablet 08/20/2017 ibuprofen (ADVIL;MOTRIN) 600 mg Tablet Take 1 tablet by mouth every 6 hours as needed for Pain. 50 tablet 08/20/2017 triamcinolone (KENALOG) 0.1 % Cream apply to ECZEMA ON HANDS twice a day 0 05/23/2017 amLODIPine (NORVASC) 5 mg Tablet take 1 tablet by mouth once daily 0 06/18/2017 atorvastatin (LIPITOR) 40 mg Tablet Take 40 mg by mouth daily. 0 06/30/2017 metFORMIN (GLUCOPHAGE-XR) 500 mg Tablet Sustained Release 24 hr take 1 tablet by mouth daily 0 06/26/2017 cyanocobalamin 500 mcg Tablet Take 1,000 mcg by mouth daily. cholecalciferol, Vitamin D3, 2,000 unit Tablet Take by mouth daily. traZODone (Desyrel) 50 mg tabletIndications:I nsomnia Take 2 tablets by mouth nightly. 04/08/2023 03/02/2024 Biotin 5 mg Capsule Take by mouth daily. 03/02/2024 documented as of this encounter Plan of Treatment Not on file documented as of this encounter Procedures Procedure Name Priority Date/Time Associated Diagnosis Comments MRI CARDIAC MORPHOLOGY FUNCTION AND STRESS WWO CONTRAST Routine 02/16/2024 11:32 AM EDT HFrEF (heart failure with reduced ejection fraction) Family history of premature CAD EKG 12-LEAD Routine 02/16/2024 9:58 AM EDT LBBB (left bundle branch block) documented in this encounter Results * MRI Cardiac Morphology Function and Stress wwo Contrast (02/16/2024 11:32 AM EDT) [employer] WORKSTATION ID [id number] DH RAD Anatomical Region Laterality Modality Chest, Cardiac Magnetic Resonan ce Impressions 02/16/2024 11:59 AM EDT 1. ??No evidence of myocardial ischemia on this stress perfusion cardiac MRI 2. ??Mildly reduced left ventricular systolic function quantitated at 50% with abnormal septal motion consistent with left bundle branch block 3. ??Normal right ventricular size and function Thank you for letting us participate in the care of this patient. ??If you are a health care provider and have any questions regarding this report, please contact the number below. ??For patients who have questions please contact the health rn transitional care that requested your imaging first. ? Narrative 02/16/2024 11:59 AM EDT EXAMINATION: MRI CARDIAC MORPHOLOGY FUNCTION AND STRESS WWO CONTRAST CLINICAL HISTORY: cardiomyopathy, premature CAD, negative nuke prev COMPARISON: None TECHNIQUE: Cardiac MRI with and without IV contrast IV CONTRAST: 43 mL Dotarem Quantification: ?? LEFT VENTRICLE: End-diastolic volume 174 mL End-systolic volume 85 mL Stroke volume: 90 mL Ejection fraction 52% End-diastolic volume index 79 mL/sq m 3 chamber septal thickness 1.1 cm 3 chamber inferolateral wall thickness 0.7 cm 3 chamber end-diastolic dimension 4.8 cm RIGHT VENTRICLE: End-diastolic volume 126 mL End-systolic volume 64 mL Stroke volume 62 mL Ejection fraction 50% End-diastolic volume index 57 mL/sq m Chambers: At rest, the left ventricle is normal in size with mildly reduced function. Quantitated left ventricular ejection fraction is 52%. There is abnormal septal motion consistent with left bundle branch block. Discrete upper septal thickening is present. The right ventricle is normal in size and function. Quantitated right ventricular ejection fraction is 50%. There are no right ventricular regional wall motion abnormalities present. The left atrium is normal in size. The right atrium is normal in size. Lipomatous hypertrophy of the interatrial septum is present. The interventricular septum is intact. The aortic root is normal in size. There is a trivial pericardial effusion. A cardiac fat pad is present. Valves: Mitral valve: Normal in structure and function with trace regurgitation and no stenosis present. Aortic valve: Trileaflet. Normal in structure and function with no regurgitation. There is no aortic valve stenosis present. Tricuspid valve: Normal in structure and function with trace tricuspid regurgitation and no stenosis present. Pulmonic valve: Grossly normal in structure and function. Stress perfusion: Stress perfusion was performed in 3 short axis planes. There were no resting perfusion defects to suggest previous infarct or resting myocardial ischemia. Rest perfusion: Rest perfusion was performed in 3 short axis planes. There were no resting perfusion defects to suggest previous infarct or resting myocardial ischemia. TI Fugitive Detective: TI Fugitive Detective demonstrates normal nulling patterns. Delayed enhancement: Delayed enhancement was performed in both long and short axis planes. There was no delayed enhancement to suggest previous infarct, myocarditis, or infiltrative disease of the left or right ventricles. Extracardiac: Extracardiac imaging performed for the purposes of cardiac planning only. The aorta is normal in course and caliber. There are no signficant pleural effusions present. Procedure Note Jp Schofield MD - 02/16/2024 EXAMINATION: MRI CARDIAC MORPHOLOGY FUNCTION AND STRESS WWO CONTRAST CLINICAL HISTORY: cardiomyopathy, premature CAD, negative nuke prev COMPARISON: None TECHNIQUE: Cardiac MRI with and without IV contrast IV CONTRAST: 43 mL Dotarem Quantification: LEFT VENTRICLE: End-diastolic volume 174 mL End-systolic volume 85 mL Stroke volume: 90 mL Ejection fraction 52% End-diastolic volume index 79 mL/sq m 3 chamber septal thickness 1.1 cm 3 chamber inferolateral wall thickness 0.7 cm 3 chamber end-diastolic dimension 4.8 cm RIGHT VENTRICLE: End-diastolic volume 126 mL End-systolic volume 64 mL Stroke volume 62 mL Ejection fraction 50% End-diastolic volume index 57 mL/sq m Chambers: At rest, the left ventricle is normal in size with mildly reducedfunction. Quantitated left ventricular ejection fraction is 52%. There is abnormalseptal motion consistent with left bundle branch block. Discrete upper septal thickening is present. The right ventricle is normal in size andfunction. Quantitated right ventricular ejection fraction is 50%. There are noright ventricular regional wall motion abnormalities present. The left atriumis normal in size. The right atrium is normal in size. Lipomatous hypertrophyof the interatrial septum is present. The interventricular septum is intact.The aortic root is normal in size. There is a trivial pericardial effusion.A cardiac fat pad is present. Valves: Mitral valve: Normal in structure and function with trace regurgitationand no stenosis present. Aortic valve: Trileaflet. Normal in structure and function with no regurgitation. There is no aortic valve stenosis present. Tricuspid valve: Normal in structure and function with trace tricuspid regurgitation and no stenosis present. Pulmonic valve: Grossly normal in structure and function. Stress perfusion: Stress perfusion was performed in 3 short axis planes. There were noresting perfusion defects to suggest previous infarct or resting myocardialischemia. Rest perfusion: Rest perfusion was performed in 3 short axis planes. There were noresting perfusion defects to suggest previous infarct or resting myocardialischemia. TI Fugitive Detective: TI Fugitive Detective demonstrates normal nulling patterns. Delayed enhancement: Delayed enhancement was performed in both long and short axis planes.There was no delayed enhancement to suggest previous infarct, myocarditis, orinfiltrative disease of the left or right ventricles. Extracardiac: Extracardiac imaging performed for the purposes of cardiac planning only.The aorta is normal in course and caliber. There are no signficant pleuraleffusions present. IMPRESSION 1. No evidence of myocardial ischemia on this stress perfusion cardiacMRI 2. Mildly reduced left ventricular systolic function quantitated at 50%with abnormal septal motion consistent with left bundle branch block 3. Normal right ventricular size and function Thank you for letting us participate in the care of this patient. If youare a health care provider and have any questions regarding this report,please contact the number below. For patients who have questions please contactthe health rn transitional care that requested your imaging first. Giselle Nelson MD IMG MRI ORDERABLE S * EKG 12 Lead (02/16/2024 9:58 AM EDT) Ventricular rate 77 BPM MUSE SYSTEM Atrial Rate 77 BPM MUSE SYSTEM P-R Interval 174 ms MUSE SYSTEM QRS Duration 158 ms MUSE SYSTEM Q-T Interval 432 ms MUSE SYSTEM QTC Calculated (Bezet) 488 ms MUSE SYSTEM Calculated P Mouthcard 55 degrees MUSE SYSTEM Calculated R Mouthcard 16 degrees MUSE SYSTEM Calculated T Mouthcard 141 degrees MUSE SYSTEM INTERPRETATION Normal sinus rhythm Left bundle branch block Abnormal ECG When compared with ECG of 08-AUG-2017 17:38, No significant change was found Confirmed by MD Cohen Jose ([id number]) on 02/17/2024 5:58:06 AM MUSE SYSTEM 02/16/2024 9:58 AM EDT 02/17/2024 5:58 AM EDT pJ Schofield MD ECG ORDERABLES MUSE SYSTEM documented in this encounter Visit Diagnoses Diagnosis LBBB (left bundle branch block) Other left bundle branch block HFrEF (heart failure with reduced ejection fraction) Family history of premature CAD Family history of ischemic heart disease documented in this encounter Administered Medications Inactive Administered Medications - up to 3 most recent administrations Medication Order MAR Action Action Date Dose Rate Site gadoterate meglumine (Dotarem) (0.5 mMol/mL) injection solution 0-100 mL 0-100 mL, Intravenous, ONCE PRN, 1 dose, Starting on Fri02/16/24 at 0945, Until Fri02/16/24 at 1132, Per Protocol, Radiology Contrast, Routine Given 02/16/2024 11:32 AM EDT 43 mLs documented in this encounter Care Teams Supervisor Mail Carriers Relationship Specialty Start Date End Date Twan Pruitt PA [facility] [place] [address] PCP - General Internal Medicine 02/16/24 documented as of this encounter
--- OUTSIDE RECORDS SUMMARY | 2024-05-26 13:18 | XMS_ITS | Encounter Summary ---
Author Organization [facility] [place] [address] Care Team Providers Care National Dedicated Truck Driver Name Role Phone Moise Lala MD Primary Care Provider [phone] Reason for Visit * Auth/Cert (Routine) Specialty Diagnoses / Procedures Referred By Contac t Referred To Contact Diagnoses Increased secretion of gastrin elevated gastrin, net spot with diffuse uptake (rads does not think cancer), bx stomach (?atrophic gastritis) Procedures PRO UPPER GI ENDOSCOPY, DIAGNOSTIC PRO UPPER GI ENDOSCOPY, BIOPSY PRO UP GI ENDOSCOPY, REMV TUMOR, SNARE PRO ANES, UGI ENDOSCOPY NOS EGD, UPPER GI ENDOSCOPY (WRVU 2.09) Thomas Hawthorne MD [address] [place] [address] [facility] Referral ID Status Reason Start Date Expiration Date Visits Re quested Visits Authorized [id number] 1 1 Encounter Details Date Type Department Care Team (Late st Contact Info) Description 06/23/2023 9:30 AM EST - 06/23/2023 10:00 AM EST [place] [address] Thomas Hawthorne MD [address] [place] [address] EGD WITH BIOPSY (WRVU 2.39) Social History Tobacco Use Types Packs/Day Years Used Date Smoking Tobacco: Every Day Cigarettes Smokeless Tobacco: Never Alcohol Use Standard Drinks/Week Comments No 0 (1 standard drink = 0.6 oz pur e alcohol) Sex and Gender Information Value Date Recorded Sex Assigned at Not on file Gender Identity Not on file Sexual Orientation Not on file documented as of this encounter Last Filed Vital Signs Vital Sign Reading Time Taken Comments Blood Pressure 130/81 06/23/2023 8:52 AM EST Pulse 75 06/23/2023 8:52 AM EST Temperature 36.7 ??C (98 ??F) 06/23/2023 8:52 AM EST Respiratory Rate 19 06/23/2023 8:52 AM EST Oxygen Saturation 96% 06/23/2023 8:52 AM EST Inhaled Oxygen Concentration - - Weight 103.9 kg (229 lb) 06/23/2023 8:52 AM EST Height 167.6 cm (5' 6) 06/23/2023 8:52 AM EST Body Mass Index 36.96 06/23/2023 8:52 AM EST documented in this encounter Discharge Instructions * Discharge Instructions* Sonia Duran RN - 06/23/2023 10:02 AM EST Upper GI Endoscopy: What to Expect at Home Your Recovery You will be able to go home after your doctor or nurse checks to make sure you are not having any problems. You may have to stay overnight if you had treatment during the test. You may have a sore throat fora day or two after the test. This care sheet gives you a general idea about what to expect after the test. How can you care for yourself at home? Activity Rest when you feel tired. You can do your normal activities when it feels okay to do so. Diet Follow your doctor's directions for eating. Unless your doctor has told you not to, drink plenty of fluids. This helps to replace the fluids that were lost during the prep. Do not drink alcohol. Medicines Your doctor will tell you if and when you can restart your medicines. He or she will also give you instructions about taking any new medicines. If you take blood thinners, such as warfarin (Coumadin), clopidogrel (Plavix), or aspirin, be sure to talk to your doctor. He or she will tell you if and when to start taking those medicines again. Make sure that you understand exactly what your doctor wants you to do. If polyps were removed or a biopsy was done during the test, your doctor may tell you not to take aspirin or other anti-inflammatory medicines for a few days. These include ibuprofen (Advil, Motrin) and naproxen (Aleve). If you have a sore throat the day after the procedure, use an njzz-vbw-zcqraso spray to numb your throat. Sucking on throat lozenges and gargling with warm salt water may also help relieve your symptoms. Other instructions For your safety, do not drive or operate machinery until the medicine wears off and you can think clearly. Your doctor may tell you not to drive or operate machinery until the day after your test. Do not sign legal documents or make major decisions until the medicine wears off and you can think clearly. The anesthesia can make it hard for you to fully understand what you are agreeing to. Additional Information for Sedation Patients For patients who received sedation: You may have received medications before and/or during your procedure which effects your judgement and reaction time. Do not drive, operate machinery, drink alcoholic beverages or make important decisions for 24 hours. Be careful on stairs as you may be unsteady on your feet. You may eat a regular diet as tolerated. Do not smoke if you are alone. IV site: Slight redness or tenderness is normal, you can use a warm compress if you would like. If tenderness and/or redness increase or if foul drainage occurs, please contact your Doctor. Please call [phone] before 8pm Mon-Fri with problems, questions or concerns. If you call after 8pm or on weekends, call the Hospital at [phone] and ask to speak to the Plunger Machine Operator principal research economist and the welding machine operator will contact that person for you. When should you call for help? Call [phone] anytime you think you may need emergency care. For example, call if: You passed out (lost consciousness). You pass maroon or bloody stools. You have trouble breathing. Call your doctor now or seek immediate medical care if: You have pain that does not get better after you take pain medicine. You are sick to your stomach or cannot drink fluids. You have new or worse belly pain. You have blood in your stools. You have a fever. You cannot pass stools or gas. Watch closely for changes in your health, and be sure to contact your doctor if you have any problems. Where can you learn more? [facility] View your After Visit Summary and more online at [email or web address] If you would like to provide feedback about your hospital experience, please call the Office of Patient and Family Relations at . If you have received this After Visit Summary in error, please immediately return it in person to the department, or notify the [facility] Privacy Office by calling toll free at between the hours of 8AM and 5PM to arrange for our retrieval of the documents at no cost to you. Content Version: 12.2 ?? 3744-7210 [employer]. Care instructions adapted under license by [facility]. If you have questions about a medical condition or this instruction, always ask your healthcare professional. [employer] disclaims any warranty or liability for your use of this information. documented in this encounter Medications at Time of Discharge Medication Sig Dispensed Refills Start Date End Date insulin detemir U-100 (Levemir) 100 unit/mL Solution [...] 2,000 unit Tablet Take by mouth daily. pantoprazole EC (Protonix) [address] tablet Take 40 mg by mouth daily. 03/18/2022 08/21/2023 traZODone (Desyrel) 50 mg tabletIndications:In somnia Take 2 tablets by mouth nightly. 04/08/2023 03/02/2024 tiZANidine (ZANAFLEX) 2 mg Tablet 08/07/2017 08/21/2023 Biotin 5 mg Capsule Take by mouth daily. 03/02/2024 documented as of this encounter H&P Notes * Thomas Hawthorne MD - 06/23/2023 9:25 AM EST Gastroenterology and Hepatology Pre-Procedure History and Physical Exam Procedure: EGD Indication: chronic diarrhea, elevated gastrin/chromogranin, diffuse gastric uptake on NetSpot Patient Active Problem List Diagnosis Code Hypertension I10 Fibromyalgia M79.7 Smokes 1/2 pack a day or less F17.210 Gastroesophageal reflux K21.9 Chronic anxiety with deprressed mood F41.9 BERTA on CPAP G47.33 Eczema L30.9 Hyperlipidemia E78.5 Alopecia L65.9 Glucose intolerance (impaired glucose tolerance) R73.02 Morbid obesity with BMI of 40.0-44.9, adult E66.01, Z68.41 LBBB (left bundle branch block) I44.7 Urinary frequency R35.0 EXAM: HEENT: Airway examined, oropharynx clear Mallampati Score: per anesthesia LUNGS: Clear to auscultation HEART: Regular rate and rhythm, normal S1, S2 ABDOMEN: Normal bowel sounds, soft, non tender, non distended A/P: Proceed with the planned endoscopic procedure. ASA 3 - Patient with moderate systemic disease with functional limitations Sedation Plan: anesthesia Risks and benefits of the procedure explained to the patient. Consent form signed and included in the patient's chart. Thomas Hawthorne MD Advanced Endoscopy Fellow Gastroenterology & Hepatology documented in this encounter Plan of Treatment Not on file documented as of this encounter Procedures Procedure Name Priority Date/Time Associated Diagnosis Comments SURGICAL PATHOLOGY REPORT Routine 06/23/2023 9:57 AM EST SPECIMEN TO PATHOLOGY Routine 06/23/2023 9:57 AM EST SPECIMEN TO PATHOLOGY Routine 06/23/2023 9:57 AM EST SPECIMEN TO PATHOLOGY Routine 06/23/2023 9:57 AM EST SPECIMEN TO PATHOLOGY Routine 06/23/2023 9:57 AM EST SPECIMEN TO PATHOLOGY Routine 06/23/2023 9:57 AM EST Upper Gi Endoscopy, Biopsy ([id number]) 06/23/2023 9:40 AM EST Elevated gastrin level UPPER GI ENDOSCOPY Routine 06/23/2023 9: 21 AM EST POCT GLUCOSE Routine 06/23/2023 8:57 AM EST documented in this encounter Results * Surgical Pathology Report (06/23/2023 9:57 AM EST) Final Diagnosis [id number] ? Location: ; 07; A The signing pathologist has (i) examined the relevant preparation(s) for the specimen(s) and (ii) rendered or confirmed the diagnosis(es). . ?Surgical Pathology DIAGNOSIS A - Antrum lesser curve, biopsy (Multiple): - Gastric antral type mucosa with surface erosions, mild chronic and acute inflammation, reactive epithelial change and ?focal intestinal metaplasia . - Negative for h. pylori microorganisms. - Negative for dysplasia or malignancy. B - Antrum greater curve, biopsy (Multiple): - Gastric antral type mucosa with surface erosions, mild chronic and acute inflammation, and reactive epithelial change. - Negative for h. pylori microorganisms. - Negative for dysplasia or malignancy. C - Incisura, biopsy (Multiple): - Gastric mucosa with moderate chronic inactive gastritis and reactive epithelial change. - Negative for h. pylori microorganisms. - Negative for dysplasia or malignancy. D - Body lesser curvature, biopsy (Multiple): - Gastric fundic gland type mucosa with mild nonspecific chronic inactive gastritis and parietal cell hyperplasia/alterati on compatible with PPI effects. - No h. pylori like microorganisms seen. E - Body greater curvature, biopsy (Multiple): - Gastric fundic gland type mucosa with mild nonspecific chronic inactive gastritis and parietal cell hyperplasia/alterati on compatible with PPI effects. - No h. pylori like microorganisms seen. Electronically signed by: ?Sarah BLUE, Zhou Verified: ??07/01/2023 9:20 ?? Pathologist Performed at: ??-[facility], [place] [address] Band Top Maker: Maxine Willis MD, FCAP, ??CLIA Certificate: [id number] ADDITIONAL STUDIES Immunohistochemistry Studies: Formalin-fixed, paraffin-embedded tissue sections are studied using the polymer technique with appropriate positive and negative controls. ?These IHC studies provide the pathologist with adjunctive diagnostic information. Antibody specificity has been verified by testing antibodies on a series of in-house tissues with known immunohistochemical performance characteristics. The clinical interpretation of any antibody positive staining or its absence is evaluated within the context of clinical presentation, morphology, histopathological criteria and other diagnostic tests. Block ? Antibody ?Result (Positive/Negative) A1,B1,C1 ? h. pylori ? negative SPECIMEN(S) SUBMITTED A - antrum lesser curve, biopsy (Multiple) B - antrum greater curve, biopsy (Multiple) C - incisura, biopsy (Multiple) . SPECIMEN(S) SUBMITTED D - body lesser curvature, biopsy (Multiple) E - body greater curvature, biopsy (Multiple) CLINICAL INFORMATION Elevated gastrin level, evaluate for gastritis SPECIMEN PROCESSING A - Labeled/Fixative: Antrum lesser curve, formalin. Quantity/Size: Four, 0.2-0.6 cm. Tissue Description: Soft, vieira-pink tissues. Sections/Processing: Submitted in toto ??in 1 cassette labeled A1. B - Labeled/Fixative: Antrum greater curve, formalin. Quantity/Size: Six, 0.2-0.6 cm. Tissue Description: Soft, vieira-pink tissues. Sections/Processing: Submitted in toto ??in 1 cassette labeled B1. C - Labeled/Fixative: Incisura, formalin. Quantity/Size: Four, 0.1-0.9 cm. Tissue Description: Soft, vieira-pink tissues. Sections/Processing: Submitted in toto ??in 1 cassette labeled C1. D - Labeled/Fixative: Body lesser curvature, formalin. Quantity/Size: Three, 0.2-0.5 cm. Tissue Description: Soft, vieira-pink tissues. Sections/Processing: Submitted in toto ??in 1 cassette labeled D1. E - Labeled/Fixative: Body greater curvature, formalin. Quantity/Size: Four, 0.3-0.8 cm. Tissue Description: Soft, vieira-pink tissues. Sections/Processing: Submitted in toto ??in 1 cassette labeled E1. ??ajw 07/01/2023 9:20 AM EST [facility] GI Biopsy 06/23/2023 9:57 AM EST 06/23/2023 9:57 AM EST GI Biopsy 06/23/2023 9:57 AM EST 06/23/2023 9:57 AM EST GI Biopsy 06/23/2023 9:57 AM EST 06/23/2023 9:57 AM EST GI Biopsy 06/23/2023 9:57 AM EST 06/23/2023 9:57 AM EST GI Biopsy 06/23/2023 9:57 AM EST 06/23/2023 9:57 AM EST Thomas Hawthorne MD PATHOLOGY/CYTOLOGY ORDERABLES [facility] [place] [address] [facility] [place] [address] * Specimen to Pathology (06/23/2023 9:57 AM EST) AP Specimen 06/23/2023 9:57 AM EST 06/23/2023 9:57 AM EST Narrative [facility] - 06/23/2023 9:57 AM EST Specimen requisition ordered. ??Separate Pathology report to follow Thomas Hawthorne MD PATHOLOGY/CYTOLOGY ORDERABLES Performing Organization Address City/[facility] [place] [address] * Specimen to Pathology (06/23/2023 9:57 AM EST) AP Specimen 06/23/2023 9:57 AM EST 06/23/2023 9:57 AM EST Narrative [facility] - 06/23/2023 9:57 AM EST Specimen requisition ordered. ??Separate Pathology report to follow Thomas Hawthorne MD PATHOLOGY/CYTOLOGY ORDERABLES Performing Organization Address [facility] [place] [address] * Specimen to Pathology (06/23/2023 9:57 AM EST) AP Specimen 06/23/2023 9:57 AM EST 06/23/2023 9:57 AM EST Narrative [facility] - 06/23/2023 9:57 AM EST Specimen requisition ordered. ??Separate Pathology report to follow Thomas Hawthorne MD PATHOLOGY/CYTOLOGY ORDERABLES Performing Organization Address [facility] [place] [address] * Specimen to Pathology (06/23/2023 9:57 AM EST) AP Specimen 06/23/2023 9:57 AM EST 06/23/2023 9:57 AM EST Narrative [facility] - 06/23/2023 9:57 AM EST Specimen requisition ordered. ??Separate Pathology report to follow Thomas Hawthorne MD PATHOLOGY/CYTOLOGY ORDERABLES Performing Organization Address City/[facility] Co de Phone Number [facility] [place] [address] * Specimen to Pathology (06/23/2023 9:57 AM EST) AP Specimen 06/23/2023 9:57 AM EST 06/23/2023 9:57 AM EST Narrative [facility] - 06/23/2023 9:57 AM EST Specimen requisition ordered. ??Separate Pathology report to follow Thomas Hawthorne MD PATHOLOGY/CYTOLOGY ORDERABLES Performing Organization Address City/State/[facility] Co de Phone Number [facility] [place] [address] * UPPER GI ENDOSCOPY (06/23/2023 9:21 AM EST) UPPER GI ENDOSCOPY [facility] Endoscopy Procedure Date: 06/23/2023 9:21 AM ? Patient Name: Nikia Denton ? N: [id number] ? Date of : 1965 ? Age: 57 ? Order #: [id number] ? Instrument Name: [id number] ? Procedure: ? Upper GI endoscopy Indications: ? Chronic diarrhea, elevated ? gastrin/chromogranin levels, ? diffuse gastric uptake on NetSpot Providers: ? Thomas Hawthorne, Alcon Rodriguez, ? RN, Janelle Brewer, [employer] T[employer] Range Feeder Referring MD: ?Ana Maria Mcgarry Medicines: ? Monitored Anesthesia Care Complications: ? No immediate complications. Procedure: ? Pre-Anesthesia Assessment: ? - Prior to the procedure, a History ? and Physical was performed, and ? patient medications, allergies and ? sensitivities were reviewed. The ? patient's tolerance of previous ? anesthesia was reviewed. ? - The risks and benefits of the ? procedure and the sedation options ? and risks were discussed with the ? patient. All questions were ? answered and informed consent was ? obtained. ? - Patient identification and ? proposed procedure were verified ? prior to the procedure by the ? physician, the nurse, the ? supervisor sleeping bag department and the sterilization technician. The ? procedure was verified in the ? pre-procedure area in the endoscopy ? suite. ? - Pre-procedure physical ? examination revealed no ? contraindications to sedation. ? - ASA Grade Assessment: III - A ? patient with severe systemic ? disease. ? - After reviewing the risks and ? benefits, the patient was deemed in ? satisfactory condition to undergo ? the procedure. ? - Monitored anesthesia care under ? the supervision of a RF TEST TECHNICIAN was ? determined to be medically ? necessary for this procedure based ? on severe comorbidity (greater than ? ASA Grade II) and patient's history ? of problems with anesthesia. ? The procedure, indications, ? benefits, risks and alternatives ? were explained to the patient. ? Specifically discussed were ? potential complications including, ? but not limited to, bleeding, ? perforation, infection, missing a ? cancer, and adverse medication ? reactions. The Endoscope was ? introduced through the mouth, and ? advanced to the third part of ? duodenum The upper GI endoscopy was ? accomplished without difficulty. ? The patient tolerated the procedure ? well. ? Findings: ? The Z-line was regular and was found 36 cm from the ? incisors. ? Mild inflammation characterized by erosions, ? erythema, granularity and linear erosions was found ? throughout the stomach, most pronounced in the ? antrum. Biopsies were taken from the antrum (lesser ? curve and greater curve), incisura, and body (lesser ? curve and greater curve) with a cold forceps for ? histology. ? The examined duodenum was normal. ? Moderate Sedation: ? Not applicable - See Anesthesia documentation Impression: ?- Gastritis. Biopsied. ? - Otherwise normal exam. Recommendation: ?- Patient has a contact number ? available for emergencies. The ? signs and symptoms of potential ? delayed complications were ? discussed with the patient. Return ? to normal activities tomorrow. ? Written discharge instructions were ? provided to the patient. ? - Await pathology results. ? Attending Participation: ? I personally performed the entire procedure. ? Thomas Hawthorne, 06/23/2023 10:03:07 AM Number of Addenda: 0 Note Initiated On: 06/23/2023 9:21 AM PROVATION 06/23/2023 9:21 AM EST Moise Lala MD GENERAL SURGICAL ORD ERABLES PROVATION * POCT Glucose (06/23/2023 8:57 AM EST) Glucose, POC 116 65 - 199 mg/dL [facility] Comment: Supplemental ranges: <140 mg/dL before meals <180 mg/dL all other times of the day Blood 06/23/2023 8:57 AM EST 06/23/2023 8:57 AM EST Thomas Hawthorne MD POINT OF CARE TEST ORDERABLES Performing Organization Address City/[facility]/ZIP Co de Phone Number [facility] [address] documented in this encounter Visit Diagnoses Diagnosis Elevated gastrin level Abnormality of secretion of gastrin documented in this encounter Administered Medications Inactive Administered Medications - up to 3 most recent administrations Medication Order MAR Action Action Date Dose Rate Site lactated ringers infusion 100 mL/hr, Intravenous, CONTINUOUS, Starting on Fri06/23/23 at 0915, Until Fri06/23/23 at 1021, Endoscopy (Day of Procedure) Restarted 06/23/2023 9:42 AM EST New Bag 06/23/2023 8:59 AM EST 100 mL/hr 100 mL/hr documented in this encounter Active and Recently Administered Medications Times are shown in EST. Continuous Medication Order 06/21/2023 06/22/2023 06/23/2023 lactated ringers infusion (CANCELED) 100 mL/hr, Intravenous, CONTINUOUS, Starting on Fri06/23/23 at 0915, Until Fri06/23/23 at 1021, Endoscopy (Day of Procedure) 0859 (New Bag - Prov ider: Chen Reynoso RN)0941 (Paused - Provider: Alexis Pemberton CRNA - Comment: Switch to gravity)0942 (Restarted - Provider: Alexis Pemberton CRNA) documented in this encounter Care Teams National Dedicated Truck Driver Relationship Specialty Start Date End Date Moise Lala MD PCP - General Family Medicine 06/26/17 02/15/24 documented as of this encounter
--- OUTSIDE RECORDS SUMMARY | 2024-05-26 13:18 | XMS_ITS | Encounter Summary ---
[facility] Organization [facility] [address] Care Team Providers Care Circuit Board Assembler Name Role Phone Moise Lala MD Primary Care Provider Reason for Referral * Diagnostic Test (Routine) - Closed Specialty Diagnoses / Procedures Referred By Contac t Referred To Contact Radiology Diagnoses Diarrhea, unspecified type Elevated gastrin level Procedures NM PET CT Neuroendocrine (DETECTNET) Ana Maria Zacarias MD [facility] [place] [address] [place] [address] Referral ID Status Reason Start Date Expiration Date V isits Requested Visits Authorized [id number] Closed Specialty Service Requested 04/11/2023 10/09/2024 1 1 Encounter Details Date Type Department Care Team (Late st Contact Info) Description 04/11/2023 Telephone [place] [address] Ana Maria Zacarias MD [facility] [place] [address] Social History Tobacco Use Types Packs/Day Years Used Date Smoking Tobacco: Every Day Cigarettes Smokeless Tobacco: Never Alcohol Use Standard Drinks/Week Comments No 0 (1 standard drink = 0.6 oz pur e alcohol) Sex and Gender Information Value Date Recorded Sex Assigned at Not on file Gender Identity Not on file Sexual Orientation Not on file documented as of this encounter Miscellaneous Notes * Telephone Encounter - Ana Maria Zacarias MD - 04/11/2023 11:15 AM EST Reviewed test results. Discussed elevated chromogranin A and gastrin. Discussed that this could be due to her PPI, but recommend a detectnet scan to assess for gastrinoma given her chronic unexplained diarrhea. documented in this encounter Plan of Treatment Not on file documented as of this encounter Results * NM PET CT Neuroendocrine (DETECTNET) (05/09/2023 2:00 PM EST) Anatomical Region Laterality Modality Positron Emissio n Tomography (PET) Impressions 05/16/2023 3:11 PM EST 1. ??Diffuse activity throughout the wall of the stomach which may be physiologic or represent a gastritis. Please correlate with clinical exam. 2. ??No specific evidence for somatostatin receptor expressing tumor or metastasis. I have personally reviewed the image(s) and the resident's interpretation and agree with the findings, Florentin Kitchen MD at 05/16/2023 3:11 PM Thank you for letting us participate in the care of this patient. ??If you are a health care provider and have any questions regarding this report, please contact the number below. ??For patients who have questions please contact the health special needs caregiver that requested your imaging first. ? Narrative 05/16/2023 3:11 PM EST EXAMINATION: NM PET CT NEUROENDOCRINE (DETECTNET) CLINICAL HISTORY: elevated tumor markers, diarrhea pt with chronic diarrhea, elevated gastrin and chromogranin A TECHNIQUE: Following IV injection of copper Cu 64 dotatate (Detectnet) and a standard uptake period of approximately 60 minutes, a non-contrast CT scan followed by a PET scan were acquired from the base of the skull to mid thighs. The non-contrast CT was used for anatomic localization and photon attenuation correction of the PET scan. Copper Cu 64 dotatate dose: 4.1 mCi COMPARISON: None FINDINGS: HEAD/NECK: Normal activity in all soft tissue regions of the neck and visualized lower head. No adenopathy. CHEST: Normal activity in all soft tissue regions. No adenopathy. No suspicious pulmonary nodules. Coronary artery and aortic atherosclerotic calcification. ABDOMEN/PELVIS: Diffuse activity throughout the wall of the stomach which may be physiologic or represent a gastritis.. No adenopathy. Normal activity in all other regions. Incidental note of expected small amount of intrahepatic biliary ductal air status post sphincterotomy. SKELETON/EXTREMITIES: Normal activity in all regions of the axial and visualized appendicular skeleton. Procedure Note Florentin Kitchen MD - 05/16/2023 EXAMINATION: NM PET CT NEUROENDOCRINE (DETECTNET) CLINICAL HISTORY: elevated tumor markers, diarrhea pt with chronic diarrhea, elevated gastrin and chromogranin A TECHNIQUE: Following IV injection of copper Cu 64 dotatate (Detectnet) and astandard uptake period of approximately 60 minutes, a non-contrast CT scan followedby a PET scan were acquired from the base of the skull to mid thighs. The non-contrast CT was used for anatomic localization and photonattenuation correction of the PET scan. Copper Cu 64 dotatate dose: 4.1 mCi COMPARISON: None FINDINGS: HEAD/NECK: Normal activity in all soft tissue regions of the neck and visualizedlower head. No adenopathy. CHEST: Normal activity in all soft tissue regions. No adenopathy. No suspicious pulmonary nodules. Coronary artery and aortic atheroscleroticcalcification. ABDOMEN/PELVIS: Diffuse activity throughout the wall of the stomach which may bephysiologic or represent a gastritis.. No adenopathy. Normal activity in all other regions. Incidental note of expected small amount of intrahepatic biliary ductalair status post sphincterotomy. SKELETON/EXTREMITIES: Normal activity in all regions of the axial and visualized appendicular skeleton. IMPRESSION 1. Diffuse activity throughout the wall of the stomach which may bephysiologic or represent a gastritis. Please correlate with clinical exam. 2. No specific evidence for somatostatin receptor expressing tumor or metastasis. I have personally reviewed the image(s) and the resident's interpretationand agree with the findings, Florentin Kitchen MD at 05/16/2023 3:11 PM Thank you for letting us participate in the care of this patient. If youare a health care provider and have any questions regarding this report,please contact the number below. For patients who have questions please contactthe health special needs caregiver that requested your imaging first. Ana Maria Zacarias MD IMG PET ORDERABLES documented in this encounter Visit Diagnoses Diagnosis Diarrhea, unspecified type Elevated gastrin level Abnormality of secretion of gastrin Diarrhea, unspecified type Elevated gastrin level Abnormality of secretion of gastrin documented in this encounter Care Teams Circuit Board Assembler Relationship Specialty Start Date End Date Moise Lala MD PCP - General Family Medicine 06/26/17 02/15/24 documented as of this encounter
--- OUTSIDE RECORDS SUMMARY | 2024-05-26 13:18 | XMS_ITS | Encounter Summary ---
[place] [address] Care Team Providers Care Hunting Sales Leader Name Role Phone Moise Lala MD Primary Care Provider [phone] Encounter Details Date Type Department Care Team (Late st Contact Info) Description 06/09/2023 Telephone [place] [id number] Shantell Franco Social History Tobacco Use Types Packs/Day Years [...] encounter Miscellaneous Notes * Telephone Encounter - Shantell Franco - 06/09/2023 12:25 PM EST Nikia Denton [id number] Diagnosis/Indication: elevated gastrin, net spot with diffuse uptake (rads does not think cancer), bx stomach (?atrophic gastritis) Please review patient chart to confirm if previous Endoscopy procedure was performed within system. If yes, take note of Anesthesia type used. If previous procedure found, and with MAC/propofol Anesthesia support was used, schedule this procedure with Anesthesia and skip the Anesthesia portion of questions. If not performed within system, not performed at all, or performed with IVCS, ask Anesthesia questions. SCHEDULING QUESTIONS (ask all patient these questions) Have you ever had a/an Upper Endoscopy before? No If yes, did you have any problems with the procedure (such as waking up during the procedure, pain or difficulties afterwards, etc.)? No What type of sedation was used: None Do you take any blood thinners or have you been diagnosed with a bleeding disorder that increases your risk of bleeding with procedures? No Do you have a Pacemaker or Defibrillator device? If yes, send pool message to Cardiology with patient information and date or procedure. No Are you a diabetic? If yes, call PCP/managing provider to discuss use of prep and any questions or concerns related to. Yes: Controlled by diet or medication? Both Do you take any iron supplements or vitamins that contain iron? No Do you have a preference regarding the gender of your provider? No ANESTHESIA QUESTIONS (YES to any question, please book with Anesthesia support) Have you ever been diagnosed with Pulmonary Hypertension and/or Congential Heart Disease? No Have you been diagnosed with A-Fib (atrial fibrillation) that is NOT being well controled with medications? No Have you ever had an allergic or adverse reaction to Fentanyl or Versed? No Have you had a problem with sedation or anesthesia? (Waking up during procedure, extreme confusion after, etc.) No Do you have a diagnosis of Obstructive Sleep Apnea that requires the use of a c- pap machine? Yes CPAP Do you use an oxygen tank at home? No Do you use a rescue inhaler more than twice per day? (COPD, severe asthma) No Do you experience breathing problems when you lay flat for a period of time? No Do you take prescription narcotic pain medications, including suboxone or methodone? No SCHEDULING CONFIRMATIONS: Please note any and all parts of your conversation with the patient here. We offer all new patients an opportunity to have an appointment with one of our associate care providers to learn more about your upcoming procedure, ask questions and get answers. These appointmentsare offered via telehealth. Would you be interested in scheduling this appointment? (Only ask if NEW referral patient; skip this question if GI provider ordered the procedure.) No Is there any other information or concerns you would like to us to share with your care team in relation to your upcoming scheduled procedure? Yes [facility] [place] [place] Cardiology for Cardiomyopathy, LBBB; IB sent to Cardiology for Cardiac Clearance; SEE PHARMACY AIDE NOTE IN ORDER FOR DH CARDIAC CLEARANCE You must have a responsible alliance party who will drive you to your procedure, stay on campus for the entire duration of your procedure, and drive you home from your procedure. Who will likely be your road oiling truck driver for the procedure? Please Verify the height and weight, and adjust if height and/or weight have changed* Estimated body mass index is 36.96 kg/m?? as calculated from the following: Height as of 04/16/23: 167.6 cm (5' 6). Weight as of 04/16/23: 103.9 kg (229 lb). Age:57 y.o. documented in this encounter Plan of Treatment Not on file documented as of this encounter Visit Diagnoses Not on filedocumented in this encounter Care Teams Hunting Sales Leader Relationship Specialty Start Date End Date Moise Lala MD PCP - General Family Medicine 06/26/17 02/15/24 documented as of this encounter
--- OUTSIDE RECORDS SUMMARY | 2024-05-26 13:18 | XMS_ITS | Encounter Summary ---
Author Organization [facility] [place] [address] Care Team Providers Care Circus Train Supervisor Name Role Phone Moise Lala MD Primary Care Provider [phone] Reason for Visit * Auth/Cert (Routine) Specialty [...] 2.09) Thomas Hawthorne MD [address] [place] [address] [facility] Referral ID Status Reason Start Date Expiration Date Visits Re quested Visits Authorized [id number] 1 1 Encounter Details Date Type Department Care Team (Latest Contact Info) Description 06/23/2023 8:31 AM EST - 06/23/2023 10:36 AM EST Hospital Encounter [place] [address] Thomas Hawthorne MD [address] [place] [address] Discharge Disposition: Home Social History Tobacco Use [...] Sign Reading Time Taken Comments Blood Pressure 104/68 06/23/2023 10:20 AM EST Pulse 75 06/23/2023 8:52 AM EST Temperature 36.7 ??C (98 ??F) 06/23/2023 8:52 AM EST Respiratory Rate 9 06/23/2023 10:20 AM EST Oxygen Saturation 98% 06/23/2023 10:20 AM EST Inhaled Oxygen Concentration - - Weight 103.9 kg (229 lb) 06/23/2023 8:52 AM EST Height 167.6 cm (5' 6) 06/23/2023 8:52 AM EST Body Mass Index 36.96 06/23/2023 8:52 AM EST documented in this encounter Discharge Instructions * Discharge Instructions* Sonia Duran, RN - 06/23/2023 10:02 AM EST Upper [...] the day after the procedure, use an [id number]-[id number] spray to numb your throat. Sucking on [...] occurs, please contact your Doctor. Please call [phone] before 8pm Mon-Fri with problems, questions or concerns. If you call after 8pm or on weekends, call the Hospital at [phone] and ask to speak to the Fire Captain Marine exhibitions and collections manager and the quill cleaning machine operator will contact that person for you. When should you call for help? Call [phone] anytime you think you may need emergency [...] any problems. Where can you learn more? [facility] View your After Visit Summary and more online at [email or web address] If you would like to provide feedback about your hospital experience, please call the Office of Patient and Family Relations at . If you have received this After Visit Summary in error, please immediately return it in person to the department, or notify the [facility] Privacy Office by calling toll free at between the hours of 8AM and 5PM to arrange for our retrieval of the documents at no cost to you. Content Version: 12.2 ?? 5270-3055 [employer]. Care instructions adapted under license by [facility]. If you have questions about a medical condition or this instruction, always ask your healthcare professional. [employer] disclaims any warranty or liability for your [...] 9:57 AM EST Upper Gi Endoscopy, Biopsy ([id number]) 06/23/2023 9:40 AM EST Elevated gastrin level UPPER GI ENDOSCOPY Routine 06/23/2023 9: 21 AM EST POCT GLUCOSE Routine 06/23/2023 8:57 AM EST documented in this encounter Results * Surgical Pathology Report (06/23/2023 9:57 AM EST) Final Diagnosis [id number] ? Location: 4T; 07; A The signing pathologist has (i) [...] ??-[facility] [place], [place] [address] Nurse Charge Rn: Maxine Willis MD, FCAP, ??CLIA Certificate: [id number] ADDITIONAL STUDIES Immunohistochemistry Studies: Formalin-fixed, paraffin-embedded tissue [...] labeled E1. ??ajw 07/01/2023 9:20 AM EST [facility] GI Biopsy 06/23/2023 9:57 AM EST 06/23/2023 9:57 AM EST GI Biopsy 06/23/2023 9:57 AM EST 06/23/2023 9:57 AM EST GI Biopsy 06/23/2023 9:57 AM EST 06/23/2023 9:57 AM EST GI Biopsy 06/23/2023 9:57 AM EST 06/23/2023 9:57 AM EST GI Biopsy 06/23/2023 9:57 AM EST 06/23/2023 9:57 AM EST Thomas Hawthorne MD PATHOLOGY/CYTOLOGY ORDERABLES [facility] [place] [address] [facility] [place] [address] * Specimen to Pathology (06/23/2023 9:57 AM EST) AP Specimen 06/23/2023 9:57 AM EST 06/23/2023 9:57 AM EST Narrative [facility] - 06/23/2023 9:57 AM EST Specimen requisition ordered. ??Separate Pathology report to follow Thomas Hawthorne MD PATHOLOGY/CYTOLOGY ORDERABLES Performing Organization Address [facility] [place] [address] * Specimen to Pathology (06/23/2023 9:57 AM EST) AP Specimen 06/23/2023 9:57 AM EST 06/23/2023 9:57 AM EST Narrative [facility] - 06/23/2023 9:57 AM EST Specimen requisition ordered. ??Separate Pathology report to follow Thomas Hawthorne MD PATHOLOGY/CYTOLOGY ORDERABLES Performing Organization Address [facility] [place] [address] * Specimen to Pathology (06/23/2023 9:57 AM EST) AP Specimen 06/23/2023 9:57 AM EST 06/23/2023 9:57 AM EST Narrative [facility] - 06/23/2023 9:57 AM EST Specimen requisition ordered. ??Separate Pathology report to follow Thomas Hawthorne MD PATHOLOGY/CYTOLOGY ORDERABLES Performing Organization Address [facility] [place] [address] * Specimen to Pathology (06/23/2023 9:57 AM EST) AP Specimen 06/23/2023 9:57 AM EST 06/23/2023 9:57 AM EST Narrative [facility] - 06/23/2023 9:57 AM EST Specimen requisition ordered. ??Separate Pathology report to follow Thomas Hawthorne MD PATHOLOGY/CYTOLOGY ORDERABLES Performing Organization Address [facility] [place] [address] * Specimen to Pathology (06/23/2023 9:57 AM EST) AP Specimen 06/23/2023 9:57 AM EST 06/23/2023 9:57 AM EST Narrative [facility] - 06/23/2023 9:57 AM EST Specimen requisition ordered. ??Separate Pathology report to follow Thomas Hawthorne MD PATHOLOGY/[place] [address] * UPPER GI ENDOSCOPY (06/23/2023 9:21 AM EST) UPPER GI ENDOSCOPY [facility] Endoscopy Procedure Date: 06/23/2023 9:21 AM ? Patient Name: Nikia Denton ? N: [id number] ? Date of : 1965 ? Age: 57 ? Order #: [id number] ? Instrument Name: [id number] ? Procedure: ? Upper GI endoscopy Indications: ? Chronic diarrhea, elevated ? gastrin/chromogranin levels, ? diffuse gastric uptake on NetSpot Providers: ? Thomas Hawthorne, Alcon Rodriguez, ? RN, Janelle Brewer, Web Graphic Designer Referring MD: ?Moise Lala, Ana Maria Zacarias Medicines: ? Monitored Anesthesia Care Complications: ? [...] the ? physician, the nurse, the ? trekking guide and the wafer fabrication technician. The ? procedure was verified in [...] care under ? the supervision of a OPHTHALMIC MEDICAL TECHNICIAN was ? determined to be medically [...] Glucose, POC 116 65 - 199 mg/dL [facility] Comment: Supplemental ranges: <140 mg/dL before meals <180 mg/dL all other times of the day Blood 06/23/2023 8:57 AM EST 06/23/2023 8:57 AM EST Thomas Hawthorne MD POINT OF CARE TEST ORDERABLES Performing Organization Address City/[facility] Co de Phone Number [facility] [place] [address] documented in this encounter Visit Diagnoses Not on filedocumented in this encounter Administered Medications Inactive Administered [...] CRNA) documented in this encounter Care Teams Circus Train Supervisor Relationship Specialty Start Date End Date Raser, Moise, MD PCP - General Family Medicine 06/26/17 02/15/24 documented as of this encounter
--- OUTSIDE RECORDS SUMMARY | 2024-05-26 13:18 | XMS_ITS | Encounter Summary ---
[place] [address] Care Team Providers Care Footwear Sales Associate Name Role Phone Moise Lala MD Primary Care Provider [phone] Encounter Details Date Type Department Care Team (Latest Contact Info) Description 05/09/2023 Travel Social History Tobacco Use Types Packs/Day Years [...] on filedocumented in this encounter Care Teams Footwear Sales Associate Relationship Specialty Start Date End Date Moise Lala MD PCP - General Family Medicine 06/26/17 02/15/24 documented as of this encounter
--- OUTSIDE RECORDS SUMMARY | 2024-05-26 13:18 | XMS_ITS | Encounter Summary ---
Author Organization [facility] [address] Care Team Providers Care Information Technology Advisor Name Role Phone Moise Lala MD Primary Care Provider [phone] Encounter Details Date Type Department Care Team (Late st Contact Info) Description 07/25/2023 Episode Changes [place] [address] Stan Hassan MD [facility] [place] [address] Social History Tobacco Use Types Packs/Day Years [...] on filedocumented in this encounter Care Teams Information Technology Advisor Relationship Specialty Start Date End Date Moise Lala MD PCP - General Family Medicine 06/26/17 02/15/24 documented as of this encounter
--- OUTSIDE RECORDS SUMMARY | 2024-05-26 13:18 | XMS_ITS | Encounter Summary ---
Author Organization [facility] [place] [address] Care Team Providers Care Amusement Machine Mechanic Name Role Phone Moise Lala MD Primary Care Provider [phone] Reason for Visit * Auth/Cert (Routine) Specialty [...] 2.09) Thomas Hawthorne MD [address] [place] [address] [facility] Referral ID Status Reason Start Date Expiration Date Visits Re quested Visits Authorized [id number] 1 1 Encounter Details Date Type Department Care Team (Late st Contact Info) Description 06/23/2023 9:42 AM EST Anesthesia [place] [address] Kaya Cha MD [facility] [place] [address] Anesthesia Record Procedure Summary Procedure Name Responsible Anesthesiologist Anesthesia Start Time Anesthesia Stop Time EGD WITH BIOPSY (WRVU 2.39) (Trunk) Kaya Cha MD 06/23/23 0942 06/23/23 1000 Events Date Time Event Comment 06/23/2023 0942 AN Verify 0942 Start 0942 An Start Data 0942 An Induction 0942 Anesthesia Ready 1000 an stop data 1000 Recovery or ICU Handoff Marlen ent care was transferred to the destination unit staff after review of the patient's medical history, current anesthetic/surgical status and plan, according to the Provider Handoff Checklist. 1000 Stop 1228 Meds Name Total IV Lidocaine 50 mg Propofol 100 mg Propofol INF 173.48 mg lactated ringers infusion 0 mL * Agents Name O2 Air N2O O2 Auxiliary Flowmeter 1 * Blood No blood administrations on file. Lines, Drains, and Airways Type Details Placement Removal (RETIRED) Peripheral IV Line - Single Lumen 11/07/21; 0750; metacarpal vein (top of hand), right; [id number] catheter system; 22 gauge; intradermal injection; LDA not present upon assessment; 06/23/23; 1025 11/07/21 0750 by Rebeca Whiting RN 06/23/23 1025 by Sonia Duran, RN ETT Mask Ventilation: Ea sy (1); ETT Type: Cuffed, Oral; ETT Size: 7 mm; Thorpe Blade: 2; Notes: Asleep, Pre-O2, Stylette; Attempts: 1; Laryngoscopy Grade: 1; ETT Placement Verified By: Auscultation, Capnometry, Visual; Secured at Teeth: 21 cm; Inserted by: susan evangelista crna; Removal Date: 06/23/23; Removal Time: 102411/07/21 0856 by Arnoldo Angel CRNA 06/23/23 1025 by Sonia Duran RN PIV 06/23/23; 0859; [id number] catheter system; 22 gauge; metacarpal vein (top of hand), right; TERRENCE RN; 0; 06/23/23; 1021 06/23/23 0859 by Chen Reynoso RN 06/23/23 1021 by Sonia Duran RN documented in this encounter Social History Tobacco Use Types Packs/Day Years Used Date Smoking Tobacco: Every Day Cigarettes Smokeless Tobacco: Never Alcohol Use Standard Drinks/Week Comments No 0 (1 standard drink = 0.6 oz pur e alcohol) Sex and Gender Information Value Date Recorded Sex Assigned at Not on file Gender Identity Not on file Sexual Orientation Not on file documented as of this encounter OR Notes * Anesthesia Postprocedure Evaluation - Kaya Cha MD - 06/23/2023 12:28 PM EST Department of Anesthesiology Post-procedure Note Patient: Nikia Denton Procedure Summary Date: 06/23/23 Room / Location: [facility] ENDO 3 / [facility]COPY Anesthesia Start: 941 Anesthesia Stop: 999 Procedure: EGD WITH BIOPSY (WRVU 2.39) (Trunk) Diagnosis: Elevated gastrin level (elevated gastrin, net spot with diffuse uptake (rads does not think cancer), bx stomach (?atrophicgastritis)) Surgeons: Thomas Hawthorne MD Responsible Provider: Kaya Cha MD Anesthesia Type: MAC ASA Status: 3 All Anesthesia Providers: Anesthesiologist: Kaya Cha MD LEATHER PIECE INSPECTOR: Alexis Pemberton CRNA Vitals Value Taken Time BP 104/68 06/23/23 1020 Temp Pulse Resp 9 06/23/23 1020 SpO2 98 % 06/23/23 1022 Pain Level 0 06/23/23 1020 Vitals shown include unfiled device data. Patient Location: PACU/[facility] Level of Consciousness: Conscious but Sleepy Pain Management: Satisfactory Analgesia PONV: None Cardiovascular Status: At Baseline and Hemodynamically Stable Respiratory Status: Stable Respiratory Status and Supplemental O2 (NC or FM) Postoperative Fluid Status: Intravascular EUvolemia Possible Anesthetic Complications: NONE apparent at time of evaluation Final Primary Anesthesia Type: MAC (The anesthetic type performed was the same as planned.) Comments: * Anesthesia Preprocedure Evaluation - Kaya Cha MD - 06/20/2023 3:38 PM EST Pre-Anesthesia Evaluation for: Nikia uribe 57 y.o. female. Procedure(s): EGD, UPPER GI ENDOSCOPY (WRVU 2.09) Patient Active Problem List Diagnosis Date Noted ??? Urinary frequency 09/01/2017 ??? LBBB (left bundle branch block) 08/13/2017 ??? Hypertension 07/11/2017 ??? Fibromyalgia 07/11/2017 ??? Smokes 1/2 pack a day or less 07/11/2017 ??? Gastroesophageal reflux 07/11/2017 ??? Chronic anxiety with deprressed mood 07/11/2017 ??? BERTA on CPAP 07/11/2017 ??? Eczema 07/11/2017 ??? Hyperlipidemia 07/11/2017 ??? Alopecia 07/11/2017 ??? Glucose intolerance (impaired glucose tolerance) 07/11/2017 ??? Morbid obesity with BMI of 40.0-44.9, adult 07/11/2017 Past Medical History: Diagnosis Date ??? Chronic anxiety with deprressed mood 07/11/2017 ??? Eczema 07/11/2017 ??? Fibromyalgia 07/11/2017 ??? Gastroesophageal reflux 07/11/2017 ??? Glucose intolerance (impaired glucose tolerance) 07/11/2017 ??? Hyperlipidemia 07/11/2017 ??? Hypertension 07/11/2017 ??? LBBB (left bundle branch block) 08/13/2017 ??? Morbid obesity with BMI of 40.0-44.9, adult 07/11/2017 ??? BERTA on CPAP 07/11/2017 ??? Smokes 1/2 pack a day or less 07/11/2017 Past Surgical History: Procedure Laterality Date ??? DILATION AND CURETTAGE OF UTERUS 2010 management of SAB ??? PRO CYSTOURETHROSCOPY N/A 08/19/2017 CYSTO, CYSTOURETHROSCOPY, DIAGNOSTIC (WRVU 2.23) performed by Kody Toth MD at [facility] MAIN OR ??? PRO ENDOSCOPIC US EXAM, ESOPH N/A 11/07/2021 UPPER EUS- ENDOSCOPIC ULTRASOUND performed by Guillermo Omer MD at [facility] END[facility]COPY ??? PRO ERCP, SPHINCTEROTOMY N/A 11/07/2021 ERCP W/SPHINCTEROTOMY/PAPILLOTOMY performed by Guillermo Omer MD at [facility] ENDOSCOPY ??? PRO ERCP, W/REMOVAL STONE, PEDRO/PANCR DUCTS 11/07/2021 ERCP W/REMOVAL CALCULI/DEBRIS FROM BILARY/PANCREATIC DUCT(S) performed by Guillermo Omer MD at [facility] END[facility]COPY ? ? PRO LAPAROSCOPY W TOT HYSTERECTUTERUS <=250 GRAM W TUBE/OVARY N/A 08/19/2017 LAPAROSCOPY, TOTAL HYST, UTERUS<250GMS, REM TUBE &/OR OVARY (WRVU 15) performed by Kody Toth MD at [facility] MAIN OR Social History Tobacco Use ??? Smoking status: Every Day Packs/day: .25 Types: Cigarettes ??? Smokeless tobacco: Never Substance Use Topics ??? Alcohol use: No Social History Substance and Sexual Activity Drug Use Yes ??? Frequency: 1.0 times per week ??? Types: Marijuana, Benzodiazapines Comment: occasional Allergies Allergen Reactions ??? Latex Rash ??? Other [Unclassified Drug] Rash Strawberries ??? Pcn [Penicillins] Causes multiple infections Medications: MAR and/or home medications have been reviewed. Physical Exam: Preprocedure Vitals Current as of 06/20/23 1538 No BP, pulse, respiration, SpO2, or temperature recorded. Height: Weight: BMI: IBW: Airway Assessment: Mallampati: II TM distance: >3 FB Neck ROM: full Cardiovascular Assessment: system normal Pulmonary Assessment: unlabored breathing Dental Assessment: Misc Assessment: Last Filed Perioperative Cognitive Screening None Anesthesia Plan: ASA 3 MAC, with a(n) intravenous induction 57 y.o. female s/f EGD PMHx: LBBB, HLD (statin), HTN (losartan, amlodipine, spironolactone), BERTA (CPAP), DM (jardiance, metformin, insulin), mood (sertraline), Fibromyalgia (pregabalin), GERD (pantoprazole), BMI 36, Smokes1/2 PPD Allergies: -- Latex -- Rash -- Other [Unclassified Drug] -- Rash -- Strawberries -- Pcn [Penicillins] -- Causes multiple infections ROS negative for GERD, CP, SOB, dizziness. Notes and labs reviewed. Patient personally seen and examined. We discussed benefits, indications, and risks of anesthesia (including but not limited to sore throat, dental injury, nerve injury, possible/prolonged intubation, cardiac, pulmonary, or neurologic event). Risk and benefits of sedation discussed with patient. All efforts will be made to keep patient comfortable and in an unaware sedated state; however, due to the nature of sedation it is possible to hear people talking during the procedure and to be aware of surroundings. Patient instructed to informour team of any needs or discomforts while with us today. Plan MAC, standard ASA monitors, adequate PIV access. Kaya Cha MD Region - Other Informed Consent: Anesthetic plan and risks discussed with patient. Plan discussed with LEATHER PIECE INSPECTOR and attending. Anesthesia Screening documented in this encounter Plan of Treatment [...] 8:59 AM EST 100 mL/hr 100 mL/hr lidocaine (pf) (Xylocaine) (20 mg/mL) 2% injection syringe Intravenous, PRN, Starting on Fri06/23/23 at 0945, Until Fri06/23/23 at 1000, Anesthesia Intra-op, Routine Given 06/23/2023 9:45 AM EST 50 mg propofoL (Diprivan) (10 mg/mL) infusion Intravenous, CONTINUOUS PRN, Starting on Fri06/23/23 at 0945, Until Fri06/23/23 at 1000, Anesthesia Intra-op, Routine New Bag 06/23/2023 9:45 AM EST 150 mcg/kg/min 69.39 mL/hr propofoL (Diprivan) 10 mg/mL bolus injection (Anesthesia) Intravenous, PRN, Starting on Fri06/23/23 at 0945, Until Fri06/23/23 at 1000, Anesthesia Intra-op Given 06/23/2023 9:45 AM EST 100 mg documented in this encounter Care Teams Amusement Machine Mechanic Relationship Specialty Start Date End Date Moise Lala MD PCP - General Family Medicine 06/26/17 02/15/24 documented as of this encounter
--- OUTSIDE RECORDS SUMMARY | 2024-05-26 13:18 | XMS_ITS | Encounter Summary ---
[place] [address] Care Team Providers Care Cream Maker Name Role Phone Twan Pruitt Primary Care Provider + Encounter Details Date Type Department Care Team (Latest Contact Info) Description 03/02/2024 9:00 AM EDT Laboratory Appointment Lab [address] [place] [address] HFrEF (heart failure with reduced ejection fraction) Social History Tobacco Use Types Packs/Day Years [...] Procedure Name Priority Date/Time Associated Diagnosis Comments TSH CASCADE Add-On 03/02/2024 9:06 AM EDT HFrEF (heart failure with reduced ejection fraction) PRO-BRAIN NATRIURETIC PEPTIDE Routine 03/02/2024 9:06 AM EDT HFrEF (heart failure with reduced ejection fraction) MAGNESIUM Routine 03/02/2024 9:06 AM EDT HFrEF (heart failure with reduced ejection fraction) HEPATIC FUNCTION PANEL Routine 03/02/2024 9:06 AM EDT HFrEF (heart failure with reduced ejection fraction) BASIC METABOLIC PANEL Routine 03/02/2024 9:06 AM EDT HFrEF (heart failure with reduced ejection fraction) documented in this encounter Results * TSH [place] (03/02/2024 9:06 AM EDT) Thyroid Stimulating Hormone 1.29 0.27 - 4.20 mcIU/mL 03/02/2024 11:14 AM EDT [facility] Comment: Reference Interval (mcIU/mL): ?? Females: ? First Trimester: 0.23-3.88 ? Second Trimester: 0.22-3.90 ? Third Trimester: 0.44-4.66 Blood VENOUS BLOOD SPECIMEN / Unknown Venipuncture / Unknown 03/02/2024 9:06 AM EDT 03/02/2024 9:06 AM EDT Malvin Russo TWISTER DOFFER CHEMISTRY ORDERABLE S [facility] [place] [address] * pro-Brain Natriuretic Peptide (03/02/2024 9:06 AM EDT) NT-proBNP 102 <=124 pg/mL 03/02/2024 11:14 AM EDT [facility] Blood VENOUS BLOOD SPECIMEN / Unknown Venipuncture / Unknown 03/02/2024 9:06 AM EDT 03/02/2024 9:06 AM EDT Malvin Russo TWISTER DOFFER CHEMISTRY ORDERABLE S [facility] [place] [address] * Magnesium (03/02/2024 9:06 AM EDT) Magnesium 0.85 0.69 - 1.07 mMol/L 03/02/2024 11:14 AM EDT [facility] Blood VENOUS BLOOD SPECIMEN / Unknown Venipuncture / Unknown 03/02/2024 9:06 AM EDT 03/02/2024 9:06 AM EDT Malvin Russo TWISTER DOFFER CHEMISTRY ORDERABLE S Performing Organization Address City/[facility]/ZIP Co de Phone Number [facility] [place] [address] * (ABNORMAL) Hepatic Function Panel (03/02/2024 9:06 AM EDT) Albumin 4.4 3.2 - 5.2 g/dL 03/02/2024 11:14 AM EDT [facility] Aspartate Aminotransferase 19 <=30 unit/L 03/02/2024 11:14 AM EDT [facility] Alanine Aminotransferase 30 0 - 30 unit/L 03/02/2024 11:14 AM EDT [facility] Alkaline Phosphatase 135(H) 35 - 105 unit/L 03/02/2024 11:14 AM EDT [facility] Bilirubin, Total 0.2 <=1.3 mg/dL 03/02/2024 11:14 AM EDT [facility] Bilirubin, Direct <0.2 0.0 - 0.3 mg/dL 03/02/2024 11:14 AM EDT [facility] Protein, Total 7.5 6.1 - 8.0 g/dL 03/02/2024 11:14 AM EDT [facility] Blood VENOUS BLOOD SPECIMEN / Unknown Venipuncture / Unknown 03/02/2024 9:06 AM EDT 03/02/2024 9:06 AM EDT Malvin Russo TWISTER DOFFER CHEMISTRY ORDERABLE S [facility] [place] [address] * (ABNORMAL) Basic Metabolic Panel Non-fasting (03/02/2024 9:06 AM ED) Glucose 207(H) 65 - 199 mg/dL 03/02/2024 11:34 AM [facility] Comment:Glucose Concentratio n >=200 mg/dL plus symptoms is consistent with Diabetes Mellitus. Blood Urea Nitrogen 19(H) 8 - 18 mg/dL 03/02/2024 11:34 AM [facility] Creatinine 0.64(L) 0.70 - 1.20 mg/dL 03/02/2024 11:34 AM [facility] Sodium 138 135 - 145 mMol/L 03/02/2024 11:34 AM [facility] Potassium 4.4 3.5 - 5.0 mMol/L 03/02/2024 11:34 AM [facility] Chloride 100 98 - 107 mMol/L 03/02/2024 11:34 AM [facility] Carbon Dioxide 25 22 - 31 mMol/L 03/02/2024 11:34 AM [facility] Anion Gap 13 5 - 15 mMol/L 03/02/2024 11:34 AM [facility] Calcium 9.5 8.5 - 10.5 mg/dL 03/02/2024 11:34 AM [facility] Est Glomerular Filtration Rate - Female 103 mL/min/1. 73 m?? 03/02/2024 11:34 AM [facility] Comment: This patient's estimated GFR was calculated using the 2020 CKD-EPI equation. The estimated GFR can vary from the measured GFR by up to 30% in the absence of rapidly changing kidney function. Assessment of the estimated GFR is not appropriate when creatinine concentrations are rapidly changing. For clinical situations in which a more precise estimate of GFR is necessary, consider alternative methods of GFR estimation such as a 24-hour urine creatinine clearance. Assignment of CKD stage 1 - 5 for patients with an eGFR near the transition point between stages may be based on clinical assessment of muscle mass and symptoms in addition to eGFR. Link: eGFR Calculator [employer] Fasting Status No 03/02/2024 11:34 AM EDT [facility] Blood VENOUS BLOOD SPECIMEN / Unknown Venipuncture / Unknown 03/02/2024 9:06 AM EDT 03/02/2024 9:06 AM EDT Malvin Russo TWISTER DOFFER CHEMISTRY ORDERABLE S Performing Organization Address City/State/[facility] Co de Phone Number [facility] [place] [address] documented in this encounter Visit Diagnoses Diagnosis HFrEF (heart failure with reduced ejection fraction) documented in this encounter Care Teams Cream Maker Relationship Specialty Start Date End Date Twan Pruitt PA [place] [address] PCP - General Internal Medicine 02/16/24 documented as of this encounter
--- OUTSIDE RECORDS SUMMARY | 2024-05-26 13:18 | XMS_ITS | Clinical Summary ---
Author Organization [facility] Address [facility] [place] [address] Care Team Providers Care Quality Improvement Coordinator (Rn) Name Role Phone Twan Pruitt Primary Care Provider + Allergies Active Allergy Reactions Criticality Noted Date Comments Latex Rash 07/01/2017 Unclassified Drug Rash 04/02/2011 Strawberries Penicillins 04/02/2011 Causes multiple infections Medications Medication Sig Dispensed Refills Start Date End Date Status amLODIPine (NORVASC) 5 mg Tablet take 1 tablet by mouth once daily 0 06/18/2017 Active atorvastatin (LIPITOR) 40 mg Tablet Take 40 mg by mouth daily. 0 06/30/2017 Active metFORMIN (GLUCOPHAGE-XR) 500 mg Tablet Sustained Release 24 hr take 1 tablet by mouth daily 0 06/26/2017 Active cyanocobalamin 500 mcg Tablet Take 1,000 mcg by mouth daily. Active cholecalciferol, Vitamin D3, 2,000 unit Tablet Take by mouth daily. Act yolande triamcinolone (KENALOG) 0.1 % Cream apply to ECZEMA ON HANDS twice a day 0 05/23/2017 Active acetaminophen (TYLENOL) 325 mg Tablet Take 2 tablets by mouth every 6 hours as needed for Pain. 30 tablet 08/20/2017 Active ibuprofen (ADVIL;MOTRIN) 600 mg Tablet Take 1 tablet by mouth every 6 hours as needed for Pain. 50 tablet 08/20/2017 Active losartan (Cozaar) 25 mg Tablet 08/21/2021 Active sertraline (ZOLOFT) 100 mg Tablet 09/13/2021 Active Jardiance 10 mg tablet Take 10 mg by mouth daily. 03/11/2023 Active pregabalin (Lyrica) 150 mg capsule Take 150 mg by mouth 2 times daily. 03/10/2023 Active insulin detemir U-100 (Levemir) 100 unit/mL Solution Inject subcutaneously nightly. Active pantoprazole EC (Protonix) [address] tablet Take 1 tablet by mouth daily. 180 tablet 3 08/21/2023 Active Active Problems Problem Noted Date Diagnosed Date Urinary frequency 09/01/2017 LBBB (left bundle branch block) 08/13/2017 Hypertension 07/11/2017 Fibromyalgia 07/11/2017 Smokes 1/2 pack a day or less 07/11/2017 Gastroesophageal reflux 07/11/2017 Chronic anxiety with deprressed mood 07/11/2017 BERTA on CPAP 07/11/2017 Eczema 07/11/2017 Hyperlipidemia 07/11/2017 Alopecia 07/11/2017 Glucose intolerance (impaired glucose tolerance) 07/11/2017 Morbid obesity with BMI of 40.0-44.9, adult 06/20 Resolved Problems Problem Noted Date Diagnosed Date Resolved Date Dependence on nicotine from cigarettes 07/11/2017 07/11/2017 Abnormal uterine bleeding 07/11/2017 Encounters Date Type Department Care Team Description 03/02/2024 1:09 PM EDT - 03/02/2024 1:14 PM EDT [place] [address] Discharge Disposition: Home 03/02/2024 10:00 AM EDT Office Visit Cardiology at [address] [address] Malvin Russo APRN HFrEF (heart failure with reduced ejection fraction) 03/02/2024 9:00 AM EDT Laboratory Appointment Lab [address] [place] [address] HFrEF (heart failure with reduced ejection fraction) 03/02/2024 Travel 02/28/2024 Travel from Last 3 Months Social History Tobacco Use Types Packs/Day Years Used Date Smoking Tobacco: Every Day Cigarettes Smokeless Tobacco: Never Tobacco Cessation:Ready to Q uit: Yes Alcohol Use Standard Drinks/Week Comments No 0 (1 standard drink = 0.6 oz pur e alcohol) Sex and Gender Information Value Date Recorded Sex Assigned at Not on file Gender Identity Not on file Sexual Orientation Not on file Last Filed Vital Signs Vital Sign Reading Time Taken Comments Blood Pressure 117/67 03/02/2024 10:44 AM EDT Pulse 69 03/02/2024 10:44 AM EDT Temperature 36.1 ??C (97 ??F) 03/02/2024 10:44 AM EDT Respiratory Rate 18 03/02/2024 10:44 AM EDT Oxygen Saturation 97% 03/02/2024 10:44 AM EDT Inhaled Oxygen Concentration - - Weight 104.3 kg (230 lb) 03/02/2024 10:44 AM EDT Height 167.6 cm (5' 6) 03/02/2024 10:44 AM EDT Body Mass Index 37.12 03/02/2024 10:44 AM EDT Plan of Treatment Health Maintenance Due Date Last Done Comments CT Colonography 1966 Colonoscopy 1966 Colorectal Cancer Screening 1966 FIT DNA 1966 FIT 1966 Sigmoidoscopy (10 year) with FIT yearly 1966 Sigmoidoscopy 1966 Pneumococcal Vaccine: At-Ris k 5-64yrs (1 of 2 - PCV) 1985 Tetanus/Diphtheria/Pertussis Vaccines (1 - Tdap) 1985 HPV test 1996 PAP Smear 1996 Breast Cancer Share Decision Needed 2006 Breast Cancer screening 2006 Zoster vaccine (1 of 2) 2016 Advance Directive 2021 Covid-19 Vaccine (1 - 2023-2 5 season) 2024 Influenza (Flu) vaccine (1 o f 1 - Influenza standard series) 01/18/2024 Diabetes Screening (HgbA1C o r Glucose) 03/02/2027 03/02/2024, 03/02/2024, 04/16/2023, Additional history exists HIV screen Completed 04/08/2023 Hepatitis C Screening Completed 04/08/2023 Procedures Procedure Name Priority Date/Time Associated Diagnosis Comments XR CHEST PA AND LATERAL STAT 03/02/2024 11:09 AM EDT GOLD TUBE HOLD STAT 03/02/2024 11:02 AM EDT TROPONIN-T, HIGH SENSITIVITY INITIAL PERFORMABLE STAT 03/02/2024 11:02 AM EDT BLUE TUBE HOLD STAT 03/02/2024 11:02 AM EDT BASIC METABOLIC PANEL STAT 03/02/2024 11:02 AM EDT CBC (WITH DIFF) STAT 03/02/2024 11:02 AM EDT EKG 12-LEAD STAT 03/02/2024 10:46 AM EDT EKG 12-LEAD Routine 03/02/2024 10:07 AM EDT TSH [place]ASC[place] Add-On 03/02/2024 9:06 AM EDT [...] HFrEF (heart failure with reduced ejection fraction) HIV SCREEN, 4TH GENERATION ([facility]/CGP/APD/NLH) Routine 04/08/2023 10:57 AM EST Elevated liver enzymes HEPATITIS C ANTIBODY Routine 04/08/2023 10:57 AM EST Elevated liver enzymes from Last 3 Months or Most Recently Relevant to Health Maintenance Results * XR Chest PA & Lateral (Generic) (03/02/2024 11:09 AM EDT) [employer] Signature WORKSTATION ID [id number] RAD Anatomical Region Laterality Modality Chest N/A Digital Radiogra phy Impressions 03/02/2024 11:29 AM EDT No acute findings Thank you for letting us participate in the care of this patient. ??If you are a health care provider and have any questions regarding this report, please contact the number below. ??For patients who have questions please contact the health hospice care consultant that requested your imaging first. ? Narrative 03/02/2024 11:29 AM EDT EXAMINATION: XR CHEST PA AND LATERAL (GENERIC) CLINICAL HISTORY: new crushing chest pain TECHNIQUE: PA and Lateral COMPARISONS: 08/08/2017 FINDINGS: The heart and mediastinum are normal. There is no pulmonary edema, pneumonia, pleural effusion or pneumothorax. Procedure Note Lisa Palmer MD - 03/02/2024 EXAMINATION: XR CHEST PA AND LATERAL (GENERIC) CLINICAL HISTORY: new crushing chest pain TECHNIQUE: PA and Lateral COMPARISONS: 08/08/2017 FINDINGS: The heart and mediastinum are normal. There is no pulmonary edema,pneumonia, pleural effusion or pneumothorax. IMPRESSION No acute findings Thank you for letting us participate in the care of this patient. If youare a health care provider and have any questions regarding this report,please contact the number below. For patients who have questions please contactthe health hospice care consultant that requested your imaging first. Vivi Kidd MD IM DX ORDERABLES * Troponin-T, High Sensitivity (03/02/2024 11:02 AM EDT) Troponin-T, High Sensitivity Initial <6 <=14 ng/L 03/02/2024 12:07 PM EDT [facility] Comment: This patient's troponin T concentration was determined using the Darcy 5th Generation troponin T assay. The 99th percentile for Troponin T for this test is 14 ng/L for females, and 22 ng/L for males. According to the fourth universal definition of myocardial infarction, the term acute myocardial infarction should be used when there is acute myocardial injury with clinical evidence of acute myocardial ischemia and with detection of a rise and/or fall of cardiac troponin values with at least one value above the 99th percentile and at least one of the following: - Symptoms of myocardial ischemia; - New ischemic ECG changes; - Development of pathological Q waves; - Imaging evidence of new loss of viable myocardium or new regional wall motion ?? abnormality in a pattern consistent with an ischemic etiology; - Identification of a coronary thrombus by angiography or autopsy (not for type 2 or 3 ?? MIs) Serial measurement of troponin and the change in troponin concentration over time (delta) is crucial for the diagnosis of acute myocardial infarction. Guidance on the interpretation of the new 5th Generation Troponin T values and the delta troponin value can be found in the [facility] Test Catalog Troponin - [email or web address]/[email or web address]/files/[email or web address] Reference: Fourth [place] Definition of Myocardial Infarction. Journal of the [place] [employer] 2018;72:2137-0953 Blood VENOUS BLOOD SPECIMEN / Unknown Venipuncture / Unknown 03/02/2024 11:02 AM EDT 03/02/2024 11:07 AM EDT Vivi Kidd MD CHEMISTRY ORDERABLES [facility] [place] [address] * Gold Tube HOLD (03/02/2024 11:02 AM EDT) Gold Hold Hold for Add-on 03/02/2024 1:02 PM EDT [facility] Blood VENOUS BLOOD SPECIMEN / Unknown Venipuncture / Unknown 03/02/2024 11:02 AM EDT 03/02/2024 11:10 AM EDT Vivi Kidd MD CHEMISTRY ORDERABLES [facility] [place] [address] * Blue Tube HOLD (03/02/2024 11:02 AM EDT) Blue Hold Hold for Add-on 03/02/2024 1:02 PM EDT [facility] Blood VENOUS BLOOD SPECIMEN / Unknown Venipuncture / Unknown 03/02/2024 11:02 AM EDT 03/02/2024 11:07 AM EDT Vivi Kidd MD HEMATOLOGY ORDERABLE S [facility] [place] [address] * (ABNORMAL) CBC (with Diff) (03/02/2024 11:02 AM EDT) Pathologist [facility] White Blood Cell 6.72 4.00 - 9.50 x10(3)/mc L 03/02/2024 11:18 AM EDT [facility] Red Blood Cell 4.60 4.00 - 5.21 x10(6)/mc L 03/02/2024 11:18 AM EDT [facility] Hemoglobin 10.6(L) 11.7 - 15.5 g/dL 03/02/2024 11:18 AM EDT [facility] Hematocrit 35.1(L) 35.7 - 45.8 % 03/02/2024 11:18 AM EDT [facility] Mean Cell Volume 76.3(L) 82.6 - 94.4 fL 03/02/2024 11:18 AM [facility] Mean Cell Hemoglobin 23.0(L) 27.1 - 32.0 pg 03/02/2024 11:18 AM [facility] Mean Cell Hemoglobin Concentration 30.2(L) 31.7 - 35.0 g/dL 03/02/2024 11:18 AM [facility] Platelet 268 145 - 357 x10(3)/mc L 03/02/2024 11:18 AM [facility] Mean Platelet Volume 10.1 7.6 - 12.9 fL 03/02/2024 11:18 AM [facility] RDW Standard Deviation 47.3(H) 37.0 - 46.0 fL 03/02/2024 11:18 AM [facility] RDW coefficient of variation 17.3(H) 11.5 - 14.1 % 03/02/2024 11:18 AM [facility] NRBC% auto 0.0 % 03/02/2024 11:18 AM [facility] NRBC Absolute <0.01 <0.01 x10(3)/mc L 03/02/2024 11:18 AM [facility] Neutrophil % 60.7 % 03/02/2024 11:18 AM [facility] Neutrophil Absolute (ANC) - Automated 4.08 1.70 - 6.10 x10(3)/mc L 03/02/2024 11:18 AM [facility] Lymph % 29.8 % 03/02/2024 11:18 AM [facility] Lymph Absolute 2.00 0.90 - 3.20 x10(3)/mc L 03/02/2024 11:18 AM [facility] Monocyte % 7.0 % 03/02/2024 11:18 AM [facility] Monocyte Absolute 0.47 0.30 - 0.90 x10(3)/mc L 03/02/2024 11:18 AM EDT [facility] Eos % 1.3 % 03/02/2024 11:18 AM EDT [facility] Eos Absolute 0.09 0.00 - 0.40 x10(3)/mc L 03/02/2024 11:18 AM EDT [facility] Basophil % 0.9 % 03/02/2024 11:18 AM EDT [facility] Baso Absolute 0.06 0.00 - 0.10 x10(3)/mc L 03/02/2024 11:18 AM EDT [facility] Immature Gran % 0.3 % 11:18 AM EDT [facility] Immature Gran Absolute <0.04 0.00 - 0.04 x10(3)/mc L 03/02/2024 11:18 AM EDT [facility] Blood VENOUS BLOOD SPECIMEN / Unknown Venipuncture / Unknown 03/02/2024 11:02 AM EDT 03/02/2024 11:07 AM EDT Vivi Kidd MD HEMATOLOGY ORDERABLE S [facility] [place] [address] * (ABNORMAL) Basic Metabolic Panel (03/02/2024 11:02 AM EDT) Only the most recent of2 resultswithin the time period is included. Glucose 271(H) 65 - 199 mg/dL 03/02/2024 1:08 PM EDT [facility] Comment:Glucose Concentratio n >=200 mg/dL plus symptoms is consistent with Diabetes Mellitus. Blood Urea Nitrogen 18 8 - 18 mg/dL 03/02/2024 1:08 PM EDT [facility] Creatinine 0.61(L) 0.70 - 1.20 mg/dL 03/02/2024 1:08 PM EDT [facility] Sodium 136 135 - 145 mMol/L 03/02/2024 1:08 PM EDT [facility] Comment:This result was prev iously suppressed from the chart. Potassium 4.3 3.5 - 5.0 mMol/L 03/02/2024 1:08 PM EDT [facility] Comment:This result was prev iously suppressed from the chart. Chloride 101 98 - 107 mMol/L 03/02/2024 1:08 PM EDT [facility] Comment:This result was prev iously suppressed from the chart. Carbon Dioxide 21(L) 22 - 31 mMol/L 03/02/2024 1:08 PM EDT [facility] Anion Gap 14 5 - 15 mMol/L 03/02/2024 1:08 PM EDT [facility] Comment:This result was prev iously suppressed from the chart. Calcium 9.5 8.5 - 10.5 mg/dL 03/02/2024 1:08 PM EDT [facility] Est Glomerular Filtration Rate - Female 104 mL/min/1. 73 m?? 03/02/2024 1:08 PM EDT [facility] Comment: This patient's estimated GFR was [...] eGFR. Link: eGFR Calculator [employer] Blood VENOUS BLOOD SPECIMEN / Unknown Venipuncture / Unknown 03/02/2024 11:02 AM EDT 03/02/2024 11:07 AM EDT Vivi Kidd MD CHEMISTRY ORDERABLES [facility] [place] [address] * EKG 12 Lead (03/02/2024 10:46 AM EDT) Only the most recent of2 resultswithin the time period is included. Ventricular rate 68 BPM MUSE SYSTEM Atrial Rate 68 BPM MUSE SYSTEM P-R Interval 170 ms MUSE SYSTEM QRS Duration 164 ms MUSE SYSTEM Q-T Interval 478 ms MUSE SYSTEM QTC Calculated (Bezet) 508 ms MUSE SYSTEM Calculated P [place] 33 degrees MUSE SYSTEM Calculated R [place] 11 degrees MUSE SYSTEM Calculated T [place] 129 degrees MUSE SYSTEM INTERPRETATION Normal sinus rhythm Left bundle branch block Abnormal ECG When compared with ECG of 02-MAR-2024 10:07, (unconfirmed) No significant change was found Confirmed by MD Jeff, Clay ([id number]) on 03/02/2024 3:55:19 PM MUSE SYSTEM 03/02/2024 10:4 6 AM EDT 03/02/2024 3:55 PM EDT Vivi Kidd MD ECG ORDERABLES MUSE SYSTEM * TSH [place] (03/02/2024 9:06 AM EDT) Pathologist [facility] Thyroid Stimulating Hormone 1.29 0.27 - 4.20 mcIU/mL 03/02/2024 11:14 AM EDT [facility] Comment: Reference Interval (mcIU/mL): ?? Females: ? First Trimester: 0.23-3.88 ? Second Trimester: 0.22-3.90 ? Third Trimester: 0.44-4.66 Blood VENOUS BLOOD SPECIMEN / Unknown Venipuncture / Unknown 03/02/2024 9:06 AM EDT 03/02/2024 9:06 AM EDT Malvin Russo APRN CHEMISTRY ORDERABLE S [facility] [place] [address] * pro-Brain Natriuretic Peptide (03/02/2024 9:06 AM EDT) NT-proBNP 102 <=124 pg/mL 03/02/2024 11:14 AM EDT [facility] Blood VENOUS BLOOD SPECIMEN / Unknown Venipuncture / Unknown 03/02/2024 9:06 AM EDT 03/02/2024 9:06 AM EDT Malvin Russo COIL INSPECTOR CHEMISTRY ORDERABLE S [facility] [place] [address] * Magnesium (03/02/2024 9:06 AM EDT) Magnesium 0.85 0.69 - 1.07 mMol/L 03/02/2024 11:14 AM EDT [facility] Blood VENOUS BLOOD SPECIMEN / Unknown Venipuncture / Unknown 03/02/2024 9:06 AM EDT 03/02/2024 9:06 AM EDT Malvin Sterlinge COIL INSPECTOR CHEMISTRY ORDERABLE S [facility] [place] [address] * (ABNORMAL) Hepatic Function Panel (03/02/2024 9:06 AM EDT) Albumin 4.4 3.2 - 5.2 g/dL 03/02/2024 11:14 AM EDT [facility] Aspartate Aminotransferase 19 <=30 unit/L 03/02/2024 11:14 AM EDT [facility] Alanine Aminotransferase 30 0 - 30 unit/L 03/02/2024 11:14 AM EDT [facility] Alkaline Phosphatase 135(H) 35 - 105 unit/L 03/02/2024 11:14 AM EDT [facility] Bilirubin, Total 0.2 <=1.3 mg/dL 03/02/2024 11:14 AM EDT [facility] Bilirubin, Direct <0.2 0.0 - 0.3 mg/dL 03/02/2024 11:14 AM EDT [facility] Protein, Total 7.5 6.1 - 8.0 g/dL 03/02/2024 11:14 AM EDT [facility] Blood VENOUS BLOOD SPECIMEN / Unknown Venipuncture / Unknown 03/02/2024 9:06 AM EDT 03/02/2024 9:06 AM EDT Malvin Russo APRN CHEMISTRY ORDERABLE S [facility] [place] [address] * Hepatitis C Antibody (04/08/2023 10:57 AM EST) Hepatitis C Antibody Negative Negative [facility] Blood 04/08/2023 10:5 7 AM EST 04/08/2023 11:02 AM EST Narrative Resulting Agency Comment Spec In Lab Ana Maria Zacarias MD CHEMISTRY ORDERABLES Performing Organization Address [facility] Co de Phone Number [facility] [place] [address] * HIV Screen, 4th Generation ([facility]/CGP/APD/NLH) (04/08/2023 10:57 AM EST) Pathologist [facility] HIV Ab/Ag Screen Negative Negative [facility] Comment: This 4th Generation HIV test screens for the presence of the HIV-1 p24 antigen as well as antibodies reactive against HIV-1 and HIV-2. A negative screen does not rule out an acute HIV infection. If acute HIV infection is suspected, testing should be repeated in 2 - 3 weeks or HIV nucleic acid testing performed. HIV Comment Low Risk of HIV Infection [facility] Blood 04/08/2023 10:5 7 AM EST 04/08/2023 11:02 AM EST Narrative Resulting Agency Comment Spec In Lab Ana Maria Zacarias MD CHEMISTRY ORDERABLES Performing Organization Address City/[facility]/ZIP Co de Phone Number [facility] [place] [address] from Last 3 Months or Most Recently Relevant to Health Maintenance Advance Directives * Full Code (Latest Code Status on File) Date Activated Date Inactivated Comments 08/19/2017 10:31 AM 08/20/2017 12:40 PM Question Answer Comments Does patient have capacity to make decision: Yes * Full Code Date Activated Date Inactivated Comments 08/19/2017 6:55 AM 08/19/2017 10:31 AM Question Answer Comments Does patient have capacity to make decision: Yes Care Teams Quality Improvement Coordinator (Rn) Relationship Specialty Start Date End Date Twan Pruitt [place] [facility] [place] [address] PCP - General Internal Medicine 02/16/24
--- OUTSIDE RECORDS SUMMARY | 2024-05-26 13:18 | XMS_ITS | Encounter Summary ---
Author Organization [facility] [place] [address] Care Team Providers Care Statue Maker Name Role Phone Moise Lala MD Primary Care Provider [phone] Encounter Details Date Type Department Care Team (Late st Contact Info) Description 05/30/2023 Orders [place] [address] [facility] [place] [address] Elevated gastrin level Social History Tobacco Use Types Packs/Day Years [...] as of this encounter Plan of Treatment Scheduled Orders Name Type Priority Associated Diagnoses Orde r Schedule ENDOSCOPY CASE REQUEST: EGD, UPPER GI ENDOSCOPY (WRVU 2.09) Procedures Routine Elevated gastrin level Ordered: 05/30/2023 documented as of this encounter Visit Diagnoses Diagnosis Elevated gastrin level Abnormality of secretion of gastrin documented in this encounter Care Teams Statue Maker Relationship Specialty Start Date End Date Moise Lala MD PCP - General Family Medicine 06/26/17 02/15/24 documented as of this encounter
--- OUTSIDE RECORDS SUMMARY | 2024-05-26 13:18 | XMS_ITS | Encounter Summary ---
Author Organization [facility] Address [facility] [place] [address] Care Team Providers Care Rolling Mill Plugger Name Role Phone Moise Lala MD Primary Care Provider [phone] Reason for Referral * Consultation (Routine) - Denied Specialty Diagnoses / Procedures Referred By Contac t Referred To Contact Infectious Diseases Diagnoses HFrEF (heart failure with reduced ejection fraction) Family history of premature CAD Post-COVID chronic dyspnea Shane Romano MD [facility] [address] [facility] Dis [address] [place] [address] Referral ID Status Reason Start Date Expiration Date V isits Requested Visits Authorized [id number] Denied Consult, Test & Treat 04/16/2023 04/15/2024 1 0 * Diagnostic Test (Routine) - Closed Specialty Diagnoses / Procedures Referred By Gael ritter Referred To Contact Radiology Diagnoses HFrEF (heart failure with reduced ejection fraction) Family history of premature CAD Procedures MRI Cardiac Morphology Function and Stress wwo Contrast Shane Romano MD [facility] [place] [address] [facility] [place] [address] Referral ID Status Reason Start Date Expiration Date V isits Requested Visits Authorized [id number] Closed Specialty Service Requested 04/16/2023 10/14/2024 1 1 Reason for Visit * Consultation (Routine) - Closed Specialty Diagnoses / Procedures Referred By Contac t Referred To Contact Cardiology Diagnoses Cardiomyopathy, unspecified type LBBB (left bundle branch block) [facility] CM, LBBB dating back to at least 2007. Recent symptoms have been progressive & quite limiting. PCP asks if Card MRI as the next step, recc further eval w/ to determine if she feeld Card MRI is the appropriate next step. Ana Maria Hendricks MD [address] [place] [id number] Giselle Nelson MD [facility] [place] [address] Referral ID Status Reason Start Date Expiration Date V isits Requested Visits Authorized [id number] Closed Consult, Test & Treat PCP Updated and/or Approved 03/13/2023 03/12/2024 6 6 Encounter Details Date Type Department Care Team ([facility] st Contact Info) Description 04/16/2023 10:20 AM EST Office Visit Cardiology at [address] [address] Giselle Nelson MD Post-COVID chronic dyspnea (Primary Dx); HFrEF (heart failure with reduced ejection fraction); Family history of premature CAD Social History Tobacco Use Types Packs/Day Years [...] Sign Reading Time Taken Comments Blood Pressure 118/79 04/16/2023 10:09 AM EST Pulse 89 04/16/2023 10:09 AM EST Temperature - - Respiratory Rate - - Oxygen Saturation 98% 04/16/2023 10:09 AM EST Inhaled Oxygen Concentration - - Weight 103.9 kg (229 lb) 04/16/2023 10:09 AM EST Height 167.6 cm (5' 6) 04/16/2023 10:09 AM EST Body Mass Index 36.96 04/16/2023 10:09 AM EST documented in this encounter Progress Notes * Giselle Nelson - 04/16/2023 10:20 AM EST LVEF 40-45%. Normal RV. LBBB. Longstanding history of CM back to 2007. Prior cor angio negative. Referred from Ana Maria Andrade, cardiology * Shane Romano MD - 04/16/2023 10:20 AM EST Images from the original note were not included. [facility] [place] Section of Advanced Heart Failure Cardiology [facility] [place] [address] OUTPATIENT VISIT DATE: 04/16/23 OUTPATIENT VISIT TYPE: New Visit PRIMARY CARE PHYSICIAN: Moise Lala MD REFERRING PHYSICIAN: No primary care provider on file. HPI Nikia Denton is a 57 y.o. F who is referred by Ana Maria Hendricks MD for evaluation of cardiomyopathy. 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 She was last seen by Dr. Hendricks in 02/2023 at [facility]. She reports a history of LBBB, reportedly back [id number], when she was in [place]. She reports that she had an echo and a cardiac catheterization done, which were both normal. She did not have any heart failure symptoms then. Since 2021, since she had COVID, she has had significant dyspnea, fatigue, as well as brain fog andtrouble remembering things. She also reports that she feels like she cannot completely lay flat. She had a possible presyncopal episode last year during these events, and was referred to cardiology. Then had an echo done 01/2023 with LVEF 40-45%, septal motion with IVCD, but normal LV size. RV functi on was normal without valvular lesions. She also had a nuclear stress which showed normal perfusion, no ischemia or infarct, EF 41%. She is currently taking Jardiance 10 mg (for her diabetes), losartan 25 mg, amlodipine 5 mg daily. She reports that someone had tried prescribing her oral diuretics before, but she ended up not taking them. Currently light smoker, about 4 to 5 cigarettes a day. No significant alcohol use. No other illicits. Does have a significant family history, including dad with OH at age 48. She also has cousins on her dad side who have at the age of 30s of cardiac arrest/cardiac related event. OUTPATIENT MEDICATIONS: Current Outpatient Medications Medication Sig Note Dispense Refill Jardiance 10 mg tablet Take 10 mg by mouth daily. pantoprazole EC (Protonix) [address] tablet Take 40 mg by mouth daily. pregabalin (Lyrica) 150 mg capsule Take 150 mg by mouth 2 times daily. traZODone (Desyrel) 50 mg tablet Take 2 tablets by mouth nightly. rifAXIMin (Xifaxan) 550 mg tablet Take 1 tablet by mouth 3 times daily for 14 days. 42 tablet 0 losartan (Cozaar) 25 mg Tablet sertraline (ZOLOFT) 100 mg Tablet zolpidem (Ambien) 5 mg Tablet acetaminophen (TYLENOL) 325 mg Tablet Take 2 tablets by mouth every 6 hours as needed for Pain. 30 tablet PRN ibuprofen (ADVIL;MOTRIN) 600 mg Tablet Take 1 tablet by mouth every 6 hours as needed for Pain. 50 tablet 0 tiZANidine (ZANAFLEX) 2 mg Tablet 08/08/2017: Received from: External Pharmacy triamcinolone (KENALOG) 0.1 % Cream apply to ECZEMA ON HANDS twice a day 08/08/2017: Received from: External Pharmacy 0 amLODIPine (NORVASC) 5 mg Tablet take 1 tablet by mouth once daily 07/01/2017: Received from: External Pharmacy 0 atorvastatin (LIPITOR) 40 mg Tablet Take 40 mg by mouth daily. 07/01/2017: Received from: External Pharmacy 0 metFORMIN (GLUCOPHAGE-XR) 500 mg Tablet Sustained Release 24 hr take 1 tablet by mouth daily 07/01/2017: Received from: External Pharmacy 0 cyanocobalamin 500 mcg Tablet Take 1,000 mcg by mouth daily. cholecalciferol, Vitamin D3, 2,000 unit Tablet Take by mouth daily. Biotin 5 mg Capsule Take by mouth daily. spironolactone (Aldactone) 25 mg tablet Take 1 tablet by mouth daily. 90 tablet 3 ALLERGIES: Allergies Allergen Reactions Latex Rash Other [Unclassified Drug] Rash Strawberries Pcn [Penicillins] Causes multiple infections PAST MEDICAL HISTORY: Patient Active Problem List Diagnosis Urinary frequency LBBB (left bundle branch block) Hypertension Fibromyalgia Smokes 1/2 pack a day or less Gastroesophageal reflux Chronic anxiety with deprressed mood BERTA on CPAP Eczema Hyperlipidemia Alopecia Glucose intolerance (impaired glucose tolerance) Morbid obesity with BMI of 40.0-44.9, adult PAST SURGICAL HISTORY: Past Surgical History: Procedure Laterality Date DILATION AND CURETTAGE OF UTERUS 2009 management of SAB PRO CYSTOURETHROSCOPY N/A 08/19/2017 CYSTO, CYSTOURETHROSCOPY, DIAGNOSTIC (WRVU 2.23) performed by Kody Toth MD at [facility] MAIN OR PRO ENDOSCOPIC US EXAM, ESOPH N/A 11/07/2021 UPPER EUS- ENDOSCOPIC ULTRASOUND performed by Guillermo Omer MD at [facility] ENDOSCOPY PRO ERCP, SPHINCTEROTOMY N/A 11/07/2021 ERCP W/SPHINCTEROTOMY/PAPILLOTOMY performed by Guillermo Omer MD at [facility] ENDOSCOPY PRO ERCP, W/REMOVAL STONE, PEDRO/PANCR DUCTS 11/07/2021 ERCP W/REMOVAL CALCULI/DEBRIS FROM BILARY/PANCREATIC DUCT(S) performed by Guillermo Omer MD at [facility] ENDOSCOPY PRO LAPAROSCOPY W TOT HYSTERECTUTERUS <=250 GRAM W TUBE/OVARY N/A 08/19/2017 LAPAROSCOPY, TOTAL HYST, UTERUS<250GMS, REM TUBE &/OR OVARY (WRVU 15) performed by Kody Toth MD at [facility] MAIN OR FAMILY HISTORY: Does have a significant family history, including dad with OH at age 48. 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 Potential Cardiomyopathy Risk Factors: CAD or risk factors for CAD Significant HTN Valvular disease Congential heart disease Diabetes x Recent viral illness History of pericarditis or myocarditis Exposures (HIV, Lyme, TB, hepatitis, toxins, high risk meds, foreign travel) ETOH / substance abuse Chemotherapy or XRT Thyroid disease Family history of cardiomyopathy or SCD X cardiac arrest/ in 30s, Known tachyrhythmia or high burden of PVC's Recent stress (i.e. takotsubo's) LBBB or chronic RV pacing X since 2007 Amyloid (waxy skin, easy bruising, thick tongue, renal dsyf, neuropathy) Sarcoid hx or family history or suggestion Sleep disordered breathing Autoimmune disorder / collagen vascular disease REVIEW OF SYSTEMS: See HPI above for pertinent positives and negatives. All other ROS negative by system (including general, HEENT, pulmonary, gastrointestinal, genitourinary, musculoskeletal, endocrine, hematologic, extremity, skin, neurology, and psychiatric) with exceptions below. PHYSICAL EXAMINATION: VITALS: BP 118/79 (BP Location (NBP): Left arm, Patient Position: Sitting, BP Cuff Sizes: Adult (25-34 cm)) Pulse 89 Ht 167.6 cm (5' 6) Wt 103.9 kg (229 lb) LMP 02/28/2017 (Approximate) SpO2 98% BMI 36.96 kg/m?? GENERAL: Pleasant and in no acute distress HEENT: PERRL, anicteric sclerae, no injection. Throat clear. NECK: Supple with full ROM. No LAD. Trachea midline. Normal thyroid no masses noted. JVP visualizedand is not elevated. CARDIAC: No abnormal precordial movements. RRR with normal S1 and S2. No murmurs, rub, or gallops noted. VASCULAR: Normal carotid upstroke, no bruits. Normal radial pulse b/l. Normal DP and PT pulses b/l. PULMONARY: symmetrical expansion. Clear lungs bilaterally. ABDOMEN: Positive bowel sounds. Soft, NT, ND. No rebound or guarding. No masses or hepatosplenomegaly. EXTREMITY: Warm and well perfused. No clubing, cyanosis. No edema. No erythema. SKIN: No concerning lesions noted on areas of skin visualized during exam. LYMPHATICS: No cervical or supraclavicular lymphadenopathy noted. NEUROLOGICAL: Alert and oriented to person, place, date. Normal strength. Normal sensation. PSYCH: Mood appropriate. LABS: Recent Labs 11/29/23 0919 NA 139 K 4.0 CL 101 CO2 23 BUN 16 CREATININE 0.67* Recent Labs 04/16/23918 AST 19 ALT 27 ALKPHOS 152* BILITOT 0.3 Recent Labs 04/16/23918 CALCIUM 9.4 No results for input(s): WBC, HGB, HCT, PLATELET in the last 168 hours. No results for input(s): INR in the last 168 hours. No results for input(s): CK, TROPONINT in the last 168 hours. Recent Labs 04/16/23918 TSH 1.66 Recent Labs 04/16/23918 HA1C 7.7* Lab Results Component Value Date CHLPL 180 04/16/2023 HDL 50 04/16/2023 CHOLHDL 3.6 04/16/2023 TRIG 165 04/16/2023 LDLCHOL 97 04/16/2023 ProBNP Date Value Ref Range Status 04/16/2023 58 <=124 pg/mL Final CARDIOLOGY RELEVANT STUDIES: EKG 02/2023 (outside) Sinus rhythm , HR 84, QRS 161, LBBB 2007 (reported) LBBB Echo 01/2023 LVEF 40-45%, septal motion w/ IVCD. Normal LV size RV normal size and function No valvular lesions. MPI 2022 No ischemia or scar. LVEF 41% LHC 2007 (reported) No obs dz I thoroughly reviewed the patient's current clinical status, the pertinent laboratory and recent cardiovascular or imaging studies, and the active management plan. IMPRESSION: Nikia Denton is a 57 y.o. female with history as above, seen in the heart failure clinic today with the following impression and plan: 1. Mildly reduced systolic function, cardiomyopathy. Differential includes LBBB- induced, less likely COVID/viral, less likely ischemic given recent normal nuclear stress test, other nonischemic/idiopathic. 2. Concern for long COVID 3. Diabetes PLAN: -Start Aldactone 25 mg daily. Continue Jardiance 10 mg daily. - No other goal-directed medical therapy given mildly reduced EF - Order cardiac MRI given concerning family history. Do stress MRI if possible to evaluate again for ischemic cardiomyopathy. - Refer to COVID clinic COUNSELING: The signs and symptoms to be aware of for more urgent evaluation were discussed and all questions addressed. The patient was counseled to continue cardiovascular care management and self management principles and to notify providers of any change in clinical status. Additionally, we discussed the fo llowing non-pharmacological measures during this visit: Smoking and alcohol abstinence/cessation, if applicable Dietary and medication compliance Monitoring daily weights and blood pressures Exercise regimen When to call our office FOLLOW UP: F/u in 3-4 months after cMRI Shane Romano MD [facility] Blanket Inspector, PGY-6 Pager #[phone] Can Epic message me 7AM-4PM on weekdays for non-urgent matters Giselle Nelson MD Advanced Heart Failure and Cardiac Transplant documented in this encounter Plan of Treatment Scheduled Referrals Name Type Priority Associated Diagnoses Orde r Schedule Amb Referral to Post-Acute COVID Syndrome (PACS) Outpatient Referral Routine HFrEF (heart failure with reduced ejection fraction) Family history of premature CAD Post-COVID chronic dyspnea Ordered: 04/16/2023 documented as of this encounter Results * MRI Cardiac Morphology Function and Stress wwo Contrast (02/16/2024 11:32 AM EDT) WORKSTATION ID [id number] [facility] Anatomical Region Laterality Modality Chest, Cardiac Magnetic [...] who have questions please contact the health child care group leader that requested your imaging first. ? Electronically signed by: Jp Schofield MD, [facility] ([phone]), at 02/16/2024 11:59 AM Narrative 02/16/2024 11:59 AM EDT EXAMINATION: MRI [...] previous infarct or resting myocardial ischemia. TI Utility Lineman: TI Utility Lineman demonstrates normal nulling patterns. Delayed enhancement: Delayed [...] suggest previous infarct or resting myocardialischemia. TI Utility Lineman: TI Utility Lineman demonstrates normal nulling patterns. Delayed enhancement: Delayed [...] patients who have questions please contactthe health child care group leader that requested your imaging first. Electronically signed by: Jp Schofield MD, [facility]([phone]), at 02/16/2024 11:59 AM Giselle Nelson MD IMG MRI ORDERABLE S * (ABNORMAL) Protein Electrophoresis, urine, random (04/16/2023 9:30 AM EST) Protein, Urine 14(H) 0 - 12 mg/dL [facility] U Albumin 38 % total [facility] Globulin, Urine 62 % total [facility] M1 Band, Urine None Detected [facility] UPEP Comments See Note [facility] Comment: There is no evidence of clonal free light chains in this patient's urine sample. Urine 04/16/2023 9:30 AM EST 04/16/2023 9:39 AM EST Narrative Resulting Agency Comment Spec In Lab Giselle Nelson MD URINE ORDERABLES [place] [place] [address] * Rheumatoid factor, quant (04/16/2023 9:19 AM EST) Rheumatoid Factor <10 <=14 IU/mL [facility] Blood 04/16/2023 9:19 AM EST 04/16/2023 9:29 AM EST Narrative Resulting Agency Comment Spec In Lab Giselle Nelson MD CHEMISTRY ORDERAB LES [facility] [place] [address] * FRANCES Antibody Screen (04/16/2023 9:19 AM EST) FRANCES Ab Screen Negative Negative [facility] Comment: This antinuclear antibody (FRANCES) screen is a qualitative test performed using a fluoroenzyme immunoassay on the Shapewaysdia 250 analyzer. This screen is designed to detect antibodies to U1RNP, SS-A/Ro, SS-B/La, centromere B, Scl-70, Johnna-1, and Sm(Devine) proteins in serum samples. Antibodies to other nuclear antibodies will not be detected with this assay. This FRANCES screen is also performed in concert with a quantitative for IgG antibodies to dsDNA. Please note that as of 03/12/2022 that this testing is performed by the Special Chemistry Laboratory at [facility]. This change in testing location is associated with a change is testing method and reference intervals. Please review the results of this test in association with the posted reference intervals. dsDNA Ab 1.0 <=15.0 IU/mL [facility] Comment: <10 negative 10-15 equivocal >15 positive This dsDNA antibody result was generated using a fluoroenzyme immunoassay on the Phadia 250 analyzer. This quantitative test is designed to detect IgG antibodies directed against double stranded DNA in human serum. The presence of antibodies that recognize dsDNA is a highly specific marker for systemic lupus erythematosus. Please note that as of 03/12/2022 that this testing is performed by the Special Chemistry Laboratory at [facility]. This change in testing location is associated with a change is testing method and reference intervals. Please review the results of this test in association with the posted reference intervals. Blood 04/16/2023 9:19 AM EST 04/16/2023 10:44 AM EST Narrative Resulting Agency Comment Spec In Lab Giselle Nelson MD LAB SEND OUT ORDE MIGUEL Performing Organization Address [facility] Co de Phone Number [place] [address] * TSH [place] (04/16/2023 9:19 AM EST) Thyroid Stimulating Hormone 1.66 0.27 - 4.20 mcIU/mL [facility] Comment: Reference Interval (mcIU/mL): Females: ??First Trimester: 0.23-3.88 ??Second Trimester: 0.22-3.90 ??Third Trimester: 0.44-4.66 Blood 04/16/2023 9:19 AM EST 04/16/2023 9:29 AM EST Narrative Resulting Agency Comment Spec In Lab Giselle Nelson MD CHEMISTRY ORDERAB LES Performing Organization Address [facility] Co de Phone Number [place] [address] * Free Light Chains, Serum (04/16/2023 9:19 AM EST) Pathologist [facility] [place] Free Light Chain 2.28 0.72 - 2.75 mg/dL [facility] Lambda Free Light Chain 1.72 0.57 - 2.15 mg/dL [facility] [place]/Lambda FLC Ratio 1.3256 0.4000 - 2.5800 [facility] Blood 04/16/2023 9:19 AM EST 04/16/2023 9:29 AM EST Narrative Resulting Agency Comment Spec In Lab Giselle Nelson MD CHEMISTRY ORDERAB LES Performing Organization Address City/[facility] Co de Phone Number [facility] [place] [address] * Protein Electrophoresis, serum (04/16/2023 9:19 AM EST) Total Prot Electrophoresis 6.8 6.1 - 8.0 g/dL [facility] Albumin Electrophoresis 4.02 3.20 - 5.20 g/dL [facility] Alpha 1 Globulin 0.24 0.10 - 0.30 g/dL [facility] Alpha 2 Globulin 0.88 0.40 - 0.90 g/dL [facility] Beta Globulin 0.90 0.50 - 1.00 g/dL [facility] Gamma Globulin 0.77 0.50 - 1.30 g/dL [facility] M1 Band None Detected None Detected [facility] Blood 04/16/2023 9:19 AM EST 04/16/2023 9:29 AM EST Narrative Resulting Agency Comment Spec In Lab Giselle Nelson MD CHEMISTRY ORDERAB LES Performing Organization Address City/[facility] Co de Phone Number [facility] [place] [address] * (ABNORMAL) Ferritin (04/16/2023 9:19 AM EST) Ferritin 13(L) 30 - 400 ng/mL [facility] Comment: Pediatric reference ranges not verified at [facility], interpret with caution. Reference ranges for females greater than 50 years of age approach values for men, i.e., 30-400 ng/mL. Blood 04/16/2023 9:19 AM EST 04/16/2023 9:29 AM EST Narrative Resulting Agency Comment Spec In Lab Giselle Nelson MD CHEMISTRY ORDERAB LES Performing Organization Address [facility] Co de Phone Number [facility] [place] [address] * (ABNORMAL) Iron and TIBC (04/16/2023 9:19 AM EST) Iron 53 30 - 150 mcg/dL [facility] TIBC 442 250 - 450 mcg/dL [facility] Iron Saturation 12(L) 20 - 50 % [facility] Blood 04/16/2023 9:19 AM EST 04/16/2023 9:29 AM EST Narrative Resulting Agency Comment Spec In Lab Giselle Nelson MD CHEMISTRY ORDERAB LES Performing Organization Address City/[facility] Co de Phone Number [facility] [place] [address] * (ABNORMAL) Hemoglobin A1c (04/16/2023 9:19 AM EST) Hemoglobin A1c 7.7(H) 4.3 - 5.6 % [facility] Comment: Reference Range: 4.3 - 5.6% 5.7 - 6.4% - Increased Risk of Developing Diabetes Mellitus >= 6.5% - Consistent with diagnosis of Diabetes Mellitus In the absence of hyperglycemia (i.e. plasma glucose > 200 mg/dL) or classic symptoms of hyperglycemia a repeat measurement of HbA1c should be performed on a separate sample to confirm the diagnosis. Diagnosis and Classification of Diabetes Mellitus, Diabetes Care 2013; 36: Suppl. 1, S68-10 Estimated Average Glucose 173 mg/dL [facility] Comment: Note: The eAG calculation has not been proven valid for women, individuals below 18 years old or above 70 years old, or individuals with hemoglobinopathies. Estimated average glucose (eAG) is calculated from the equation described in: [employer]lo LEWIS, Tish J, Waqas R, et al. ??Translating the A1C assay into estimated average glucose values. ??Diabetes Care 2008:31(8):8959-1333. Additional resources are available on the ADA website (diabetes.org). Blood 04/16/2023 9:19 AM EST 04/16/2023 9:29 AM EST Narrative Resulting Agency Comment Spec In Lab Giselle Nelson MD CHEMISTRY ORDERAB LES [place] [place] [address] * Lipid Panel (Reflex Direct LDL) (04/16/2023 9:19 AM EST) Cholesterol, Total 180 mg/dL [facility] Comment: Lower Risk: <200 mg/dL Average Risk: 200-239 mg/dL Higher Risk: >tt=067 mg/dL Triglyceride 165 mg/dL [facility] Comment: Average Risk/Lower Risk: <150 mg/dL Borderline High Risk: 150-199 mg/dL High Risk: 200-499 mg/dL Very High Risk: >gm=928 mg/dL HDL Cholesterol 50 mg/dL [facility] Comment: Males: ?? Higher Risk: <40 mg/dL Females: ?? Higher Risk: <50 mg/dL LDL Cholesterol 97 mg/dL [facility] Comment: Lowest Risk: <100 mg/dL Lower Risk: 100-129 mg/dL Borderline High Risk: 130-159 mg/dL High Risk: 160-189 mg/dL Very High Risk: >fp=178 mg/dL Cholesterol/HDL Ratio 3.6 ratio [facility] Lipid Interpretation See Note [facility] Comment: Lipid management should be guided by a patient? s ASCVD risk, goals and preferences. ACC/AHA Guidelines recommend high intensity statin if clinical ASCVD or LDL greater than or equal to 190 mg/dL. http://Atavist.com/ZPZ-VLM-Wjnfdgmin Adults aged 40-75 with LDL 70-189 mg/dL should have their 10 year ASCVD risk estimated with the ACC/AHA ASCVD risk building estimator http://tools.acc.org/VIYGK-Tgue-Ngxvwshbj/ Statin should be discussed if risk greater than or equal to 7.5% in non-diabetics. With diabetes, moderate intensity statin is recommended if risk less than 7.5%, high intensity if risk greater than or equal to 7.5%. Annual lipid monitoring on statins is not necessary. Evaluate secondary causes of Triglycerides greater than 500 mg/dL or LDL greater than 190 mg/dL: See table 6 of ACC/AHA Guideline. Lifestyle modification is a critical component of ASCVD risk reduction. Blood 04/16/2023 9:19 AM EST 04/16/2023 9:29 AM EST Narrative Resulting Agency Comment Spec In Lab Giselle Nelson MD CHEMISTRY ORDERAB LES [facility] [place] [address] [place] [address] * pro-Brain Natriuretic Peptide (04/16/2023 9:19 AM EST) NT-proBNP 58 <=124 pg/mL [facility] Blood 04/16/2023 9:19 AM EST 04/16/2023 9:29 AM EST Narrative Resulting Agency Comment Spec In Lab Giselle Nelson MD CHEMISTRY ORDERAB LES [facility] [address] [place] [address] * (ABNORMAL) Comprehensive metabolic panel (non-fasting) (04/16/2023 9:19 AM EST) Glucose 148 65 - 199 mg/dL [facility] Comment:Diabetes: >=200 mg/d L plus symptoms Blood Urea Nitrogen 16 8 - 18 mg/dL [facility] Creatinine 0.67(L) 0.70 - 1.20 mg/dL [facility] Sodium 139 135 - 145 mmol/L [facility] Potassium 4.0 3.5 - 5.0 mmol/L [facility] Comment: Please note: ??Patients with WBC >100,000 may have falsely elevated Potassium levels. ??For accurate Potassium quantification in these patients send serum separator tube (gold top) for subsequent determinations. ??Contact the Clinical Chemistry Laboratory if there are any questions. Chloride 101 98 - 107 mmol/L [facility] Carbon Dioxide 23 22 - 31 mmol/L [facility] Anion Gap 15 5 - 15 mmol/L [facility] Calcium 9.4 8.5 - 10.5 mg/dL [facility] Protein, Total 7.0 6.1 - 8.0 g/dL [facility] Albumin 4.4 3.2 - 5.2 g/dL [facility] Aspartate Aminotransferase 19 0 - 30 unit/L [facility] Alanine Aminotransferase 27 0 - 30 unit/L [facility] Alkaline Phosphatase 152(H) 35 - 105 unit/L [facility] Bilirubin, Total 0.3 0.2 - 1.3 mg/dL [facility] Est Glomerular Filtration Rate 103 >=60 mL/min/1. 73 m?? [facility] Comment: This patient's estimated GFR was [...] urine creatinine clearance. Assignment of CKD stage 1-5 for patients with an eGFR near the transition point between stages may be based on clinical assessment of muscle mass and symptoms in addition to eGFR. Blood 04/16/2023 9:19 AM EST 04/16/2023 9:29 AM EST Narrative Resulting Agency Comment Spec In Lab Giselle Nelson MD CHEMISTRY ORDERAB LES Performing Organization Address City/State/[facility] Co de Phone Number [facility] [place] [address] documented in this encounter Visit Diagnoses Diagnosis Post-COVID chronic dyspnea- Primary HFrEF (heart failure with reduced ejection fraction) Family history of premature CAD Family history of ischemic heart disease LBBB (left bundle branch block) Other left bundle branch block HFrEF (heart failure with reduced ejection fraction) Family history of premature CAD Family history of ischemic heart disease documented in this encounter Care Teams Rolling Mill Plugger Relationship Specialty Start Date End Date Moise Lala MD PCP - General Family Medicine 06/26/17 02/15/24 documented as of this encounter
--- OUTSIDE RECORDS SUMMARY | 2024-05-26 13:18 | XMS_ITS | Encounter Summary ---
Author Organization Formerly [facility] [place] [address] Care Team Providers Care New Grad Rn Name Role Phone Moise Lala MD Primary Care Provider [phone] Encounter Details Date Type Department Care Team (Latest Contact Info) Description 08/21/2023 3:30 PM EDT TH Visit (TeleHealth) [place] [id number] Ana Maria Zacarias MD [facility] [place] [address] Diarrhea, unspecified type; Metabolic dysfunction-associat ed steatotic liver disease (MASLD) Social History Tobacco Use Types Packs/Day Years [...] as of this encounter Progress Notes * Ana Maria Zacarias MD - 08/21/2023 3:30 PM EDT GASTROENTEROLOGY TELEMEDICINE PROGRAM - ESTABLISHED PATIENT VISIT Chief Complaint: Nikia Denton is a 57 y[address] patient of Dr. Lala here for follow-up of [facility]. Detailed history: #[facility] Liver Fibrosis Score (Fib 4) was 0.84 at 08/21/2023 3:30 PM Risk of Fibrosis Low Intermediate High NAFLD Less than 1.3 1.3-2.67 Greater than 2.67 Hepatitis C Less than 1.45 1.45-3.25 Greater than 3.25 #IBS-D - HPI 04/08/2023 Diarrhea since her cholecystectomy and ERCP 2 years intermittently. She reports diarrhea occurs a few times per weeks, 5-7 BM, [place] type 7, without blood, bright yellow. She reports having [place]type 6, with 2 BM per day. She reports having constipation prior to cholecystectomy. She reports episodes of fecal incontinence and urgency. She reports having a colonoscopy in 03/2020 with one low risk TA. Colonoscopy in 03/2022 with normal non-targeted colon biopsies. EGD in 12/2021 with normal gastric and duodenal biopsies. She reports be given a power which did not help, she reports trying daily for 1 month. She has been using loperamide 2mg PRN. She has not tried loperamide scheduled. She has been trying to avoid fatty foods and increasing fiber. She reports using ibuprofen daily, has tried stopping for a month without improvement in her GI symptoms. She tried holding metformin for 6 weeks without improvement. She has been on Jardiance for a few months. She was started on sertraline 1year ago. Celiac serology in 09/2022. - rifaximin 550 mg TID for two weeks tried 03/2023 with no change in symptoms - diary free diet for 4 weeks with no change in symptoms Latest Reference Range & Units 04/08/23 10:57 Chromogranin A <93 ng/mL 575 (H) Latest Reference Range & Units 04/08/23 10:57 Gastrin pg/mL 215 (H) NET SPOT 04/2023: 1. Diffuse activity throughout the wall of the stomach which may be physiologic or represent a gastritis. Please correlate with clinical exam. 2. No specific evidence for somatostatin receptor expressing tumor or metastasis #Gastric focal intestinal metaplasia - Biopsies 07/01/2023 A - Antrum lesser curve, biopsy (Multiple): - Gastric antral type mucosa with surface erosions, mild chronic and acute inflammation, reactive epithelial change and focal intestinal metaplasia . - Negative for h. [...] nonspecific chronic inactive gastritis and parietal cell hyperplasia/alteration compatible with PPI effects. - No h. pylori like microorganisms seen. E - Body greater curvature, biopsy (Multiple): - Gastric fundic gland type mucosa with mild nonspecific chronic inactive gastritis and parietal cell hyperplasia/alteration compatible with PPI effects. - No h. pylori like microorganisms seen. Interval history: Continues to have bouts diarrhea 3-4 days out of the week. She did not improve with dairy free diet or rifaximin. Review of systems: 14-point review of systems reviewed and negative except as above. Medications: Outpatient Medications Prior to Visit Medication Sig Dispense Refill insulin detemir U-100 (Levemir) 100 unit/mL Solution Inject subcutaneously nightly. Jardiance 10 mg tablet Take 10 mg by mouth daily. pantoprazole EC (Protonix) [address] tablet Take 40 mg by mouth daily. pregabalin (Lyrica) 150 mg capsule Take 150 mg by mouth 2 times daily. traZODone (Desyrel) 50 mg tablet Take 2 tablets by mouth nightly. losartan (Cozaar) 25 mg Tablet sertraline (ZOLOFT) 100 mg Tablet acetaminophen (TYLENOL) 325 mg Tablet Take 2 tablets by mouth every 6 hours as needed for Pain. 30 tablet PRN ibuprofen (ADVIL;MOTRIN) 600 mg Tablet Take 1 tablet by mouth every 6 hours as needed for Pain. 50 tablet 0 tiZANidine (ZANAFLEX) 2 mg Tablet triamcinolone (KENALOG) 0.1 % Cream apply to ECZEMA ON HANDS twice a day 0 amLODIPine (NORVASC) 5 mg Tablet take 1 tablet by mouth once daily 0 atorvastatin (LIPITOR) 40 mg Tablet Take 40 mg by mouth daily. 0 metFORMIN (GLUCOPHAGE-XR) 500 mg Tablet Sustained Release 24 hr take 1 tablet by mouth daily 0 cyanocobalamin 500 mcg Tablet Take 1,000 mcg by mouth daily. cholecalciferol, Vitamin D3, 2,000 unit Tablet Take by mouth daily. Biotin 5 mg Capsule Take by mouth daily. No facility-administered medications prior to visit. Allergies: is allergic to latex, other [unclassified drug], and pcn [penicillins]. Physical exam: No Physical Examination performed during this telemedicine visit Laboratory studies, imaging, and procedures (my review of prior records): Admission on 06/23/2023, Discharged on 06/23/2023 Component Date Value Ref Range Status POC Glucose 06/23/2023 116 65 - 199 mg/dL Final UPPER GI ENDOSCOPY 06/23/2023 Final Value:[facility] Endoscopy Procedure Date: 06/23/2023 9:21 AM Patient Name: Nikia Denton Date of : 1965 Age: 57 Order #: [id number] Instrument Name: [id number] Procedure: Upper GI endoscopy Indications: Chronic diarrhea, elevated gastrin/chromogranin levels, diffuse gastric uptake on NetSpot Providers: Alcon Cabral RN, Janelle Brewer, Sales Agent [employer] Referring MD: Ana Maria Mcgarry Medicines: Monitored Anesthesia Care Complications: No immediate complications. Procedure: Pre-Anesthesia Assessment: - Prior to the procedure, a History and Physical was performed, and patient medications, allergies and sensitivities were reviewed. The patient's tolerance of previous anesthesia was reviewed. - The risks and benefits of the procedure and the sedation options and risks were discussed with the patient. All questions were answered and informed consent was obtained. - Patient identification and proposed procedure were verified p rior to the procedure by the physician, the nurse, the apprentice pattern maker and the certified bench jeweler technician. The procedure was verified in the pre-procedure area in the endoscopy suite. - Pre-procedure physical examination revealed no contraindications to sedation. - ASA Grade Assessment: III - A patient with severe systemic disease. - After reviewing the risks and benefits, the patient was deemed in satisfactory condition to undergo the procedure. - Monitored anesthesia care under the supervision of a MAINTENANCE MECHANIC ENGINE was determined to be medically necessa ry for this procedure based on severe comorbidity (greater than ASA Grade II) and patient's history of problems with anesthesia. The procedure, indications, benefits, risks and alternatives were explained to the patient. Specifically discussed were potential complications including, but not limited to, bleeding, perforation, infection, missing a cancer, and adverse medication reactions. The Endoscope was introduced through the mouth, and advanced to the third part of duodenum The upper GI endoscopy was accomplished without difficulty. The patient tolerated the procedure well. Findings: The Z-line was regular and was found 36 cm from the incisors. Mild inflammation characterized by erosions, erythema, granularity and linear erosions was found throughout the stomach, most pronounced in the antrum. Biopsies were taken from the antrum (lesser curve and greater curve), incisura, and body (lesser curve and greater curve) with a cold forceps for histology. The examined duodenum was normal. Moderate Sedation: Not applicable - See Anesthesia documentation Impression: - Gastritis. Biopsied. - Otherwise normal exam. Recommendation: - Patient has a contact number available for emergencies. The signs and symptoms of potential delayed complications were discussed with the patient. Return to normal activities tomorrow. Written discharge instructions were provided to the patient. - Await pathology results. Attending Participation: I personally performed the entire procedure. Thomas Hawthorne, 06/23/2023 10:03:07 AM Number of Addenda: 0 Note Initiated On: 06/23/2023 9:21 AM Surgical Pathology Report 06/23/2023 Final Value:[id number] Location: 4T; EA07; A The signing pathologist has (i) examined the relevant preparation(s) for the specimen(s) and (ii) rendered or confirmed the diagnosis(es). . Surgical Pathology DIAGNOSIS A - Antrum lesser curve, biopsy (Multiple): - Gastric antral type mucosa with surface erosions, mild chronic and acute inflammation, reactive epithelial change and focal intestinal metaplasia . - Negative for h. [...] epithelial change. - Negative for h. pylori microorganis ms. - Negative for dysplasia or malignancy. D - Body lesser curvature, biopsy (Multiple): - Gastric fundic gland type mucosa with mild nonspecific chronic inactive gastritis and parietal cell hyperplasia/alteration compatible with PPI effects. - No h. pylori like microorganisms seen. E - Body greater curvature, biopsy (Multiple): - Gastric fundic gland type mucosa with mild nonspecific chronic inactive gastritis and parietal cell hyperplasia/alteration compatible with PPI effects. - No h. pylori like microorganisms seen. Electronically signed by: Zhou Smith MD Verified: 07/01/2023 9:20 Pathologist Performed at: -[facility] Dept. of Pathology, [place] [address] Auditor Internal: Maxine Willis MD, FCAP, [place] Certificate: [id number] ADDITIONAL STUDIES Immunohistochemistry Studies: Formalin-fixed, paraffin-embedded tissue sections are studied using the polymer technique with appropriate positive and negative controls. T hese IHC studies provide the pathologist with adjunctive diagnostic information. Antibody specificity has been verified by testing antibodies on a series of in-house tissues with known immunohistochemical performance characteristics. The clinical interpretation of any antibody positive staining or its absence is evaluated within the context of clinical presentation, morphology, histopathological criteria and other diagnostic tests. Block Antibody Result (Positive/Negative) A1,B1,C1 h. pylori negative SPECIMEN(S) SUBMITTED A - antrum lesser curve, biopsy (Multiple) B - antrum greater curve, biopsy (Multiple) C - incisura, biopsy (Multiple) . SPECIMEN(S) SUBMITTED D - body lesser curvature, biopsy (Multiple) E - body greater curvature, biopsy (Multiple) CLINICAL INFORMATION Elevated gastrin level, evaluate for gastritis SPECIMEN PROCESSING A - Labeled/Fixative: Antrum lesser curve, formalin. Giuseppe ntity/Size: Four, 0.2-0.6 cm. Tissue Description: Soft, vieira-pink tissues. Sections/Processing: Submitted in toto in 1 cassette labeled A1. B - Labeled/Fixative: Antrum greater curve, formalin. Quantity/Size: Six, 0.2-0.6 cm. Tissue Description: Soft, vieira-pink tissues. Sections/Processing: Submitted in toto in 1 cassette labeled B1. C - Labeled/Fixative: Incisura, formalin. Quantity/Size: Four, 0.1-0.9 cm. Tissue Description: Soft, vieira-pink tissues. Sections/Processing: Submitted in toto in 1 cassette labeled C1. D - Labeled/Fixative: Body lesser curvature, formalin. Quantity/Size: Three, 0.2-0.5 cm. Tissue Description: Soft, vieira-pink tissues. Sections/Processing: Submitted in toto in 1 cassette labeled D1. E - Labeled/Fixative: Body greater curvature, formalin. Quantity/Size: Four, 0.3-0.8 cm. Tissue Description: Soft, vieira-pink tissues. Sections/Processing: Submitted in toto in 1 cassette labeled E1. ajw Assessment/Plan: Ms. Denton is a 57 y.o. patient with MASLD and IBS-D. We reviewed her workup. As for her liver, testing for viral hepatitis was negative and her most recent liver enzymes show normal AST and ALT. She has a visit scheduled in weight wellness in October for work on her metabolic risk factors. Referral back to liver clinic would be warranted if her fib 4 score is greater than 1.3 or if her AST and ALT are persistently greater then 60. For her GI symptoms we reviewed her workup. Discussed that her elevated chromogranin and gastrin are likely due to PPI effect given the negative Netspot. The diffuse uptake in the stomach appears to be physiologic or related to mild gastritis which was noted on her biopsies. Fortunately her mapping biopsies were negative for any dysplasia or malignancy. As she did have presence of erosion on 40 mg of pantoprazole recommend increasing the pantoprazole to 40 mg twice daily for the next 6 weeks. For her frequent diarrhea I recommended starting scheduled Imodium with 2 mg 3 times daily. Discussed that the dose may be titrated to effect with a max of 8 tablets (60mg) in a 24-hour period if her symptoms do not respond over the next few months I have asked that she reach out to me and we can schedule follow-up visit. I spent 20 minutes face to face with the patient. 20 minutes were spent on counseling and discussion as of the above during this telemedicine visit. The patient was located in [place] at the time of their visit. Approximate time in review of records and documentation 10 minutes. Approximate total time devoted to this single encounter on the day of the encounter: 30 minutes Ana Maria Zacarias MD [facility] [place] [phone] documented in this encounter Plan of Treatment Not on file documented as of this encounter Visit Diagnoses Diagnosis Diarrhea, unspecified type Metabolic dysfunction-associated steatotic liver disease (MASLD) documented in this encounter Care Teams New Grad Rn Relationship Specialty Start Date End Date Moise Lala MD PCP - General Family Medicine 06/26/17 02/15/24 documented as of this encounter
--- OUTSIDE RECORDS SUMMARY | 2024-05-26 13:18 | XMS_ITS | Encounter Summary ---
[place] [address] Care Team Providers Care Vault Attendant Name Role Phone Twan Pruitt Primary Care Provider + Encounter Details Date Type Department Care Team (Late st Contact Info) Description 03/02/2024 10:00 AM EDT Office Visit Cardiology at [address] [id number] Malvin Russo, BLANCA HFrEF (heart failure with reduced ejection fraction) [...] Sign Reading Time Taken Comments Blood Pressure 134/80 03/02/2024 9:45 AM EDT Pulse 86 03/02/2024 9:45 AM EDT Temperature - - Respiratory Rate - - Oxygen Saturation 98% 03/02/2024 9:45 AM EDT Inhaled Oxygen Concentration - - Weight 107 kg (236 lb) 03/02/2024 9:45 AM EDT Height 167.6 cm (5' 6) 03/02/2024 9:45 AM EDT Body Mass Index 38.09 03/02/2024 9:45 AM EDT documented in this encounter Progress Notes * Malvin Russo, PICKER - 03/02/2024 10:00 AM EDT Images from the original note were not included. [facility] Section of Advanced Heart Failure Cardiology [facility] [place] [address] [address] OUTPATIENT VISIT DATE: 03/01/24 OUTPATIENT VISIT TYPE: Follow up PRIMARY CARE PHYSICIAN: OTILIA Daigle REFERRING PHYSICIAN: No primary care provider on file. HPI Nikia Denton is a 58 y.o. F who is referred by Ana Maria Hendricks MD for evaluation of cardiomyopathy. 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 She was last seen by Dr. Hendricks in 02/2023 at [facility]. She reports a history of LBBB, reportedly back [id number], when she was in [place]. She reports that she had an echo [...] a significant family history, including dad with DE at age 48. She also has cousins on her dad side who have at the age of 30s of cardiac arrest/cardiac related event. Today: A presents today with complaint of ongoing chest heaviness which she states has been worse over thelast 2 to 3 days. She states that heaviness has been in center of her chest does not radiate anywhere but it causes her to feel like she cannot take a deep breath. she endorses some mild shortness ofbreath with the discomfort and rates the discomfort a 4 out of 10. She also states that in the last 2 to 3 weeks she had a syncopal event where she had loss of consciousness. She did not seek medical attention after that event. She has had multiple periods of presyncope since then which she reports that she has noted some palpitations and lightheadedness with those events. She states that it feels like her head gets very heavy with his events happening and that s he has hard time lying her head up. She does state that she has not felt very hungry over the course of the last year and has had some slow weight gain today's weight is 236 pounds. OUTPATIENT MEDICATIONS: Current Outpatient Medications Medication Sig Note Dispense Refill pantoprazole EC (Protonix) [address] tablet Take 1 tablet by mouth daily. 180 tablet 3 insulin detemir U-100 (Levemir) 100 unit/mL Solution Inject subcutaneously nightly. Jardiance 10 mg tablet Take 10 mg by mouth daily. pregabalin (Lyrica) 150 [...] as needed for Pain. 50 tablet 0 triamcinolone (KENALOG) 0.1 % Cream apply to [...] 5 mg Capsule Take by mouth daily. ALLERGIES: Allergies Allergen Reactions Latex Rash Other [...] CYSTO, CYSTOURETHROSCOPY, DIAGNOSTIC (WRVU 2.23) performed by Kdoy Toth MD at [facility] MAIN OR PRO ENDOSCOPIC US EXAM, ESOPH N/A 11/07/2021 UPPER EUS- ENDOSCOPIC ULTRASOUND performed by Guillermo Omer MD at [facility] ENDOSCOPY PRO ERCP, SPHINCTEROTOMY N/A 11/07/2021 ERCP W/SPHINCTEROTOMY/PAPILLOTOMY performed by Guillermo Omer MD at [facility] ENDOSCOPY PRO ERCP, W/REMOVAL STONE, PEDRO/PANCR DUCTS 11/07/2021 ERCP W/REMOVAL CALCULI/DEBRIS FROM BILARY/PANCREATIC DUCT(S) performed by Guillermo Omer MD at [facility] ENDOSCOPY PRO LAPAROSCOPY W TOT HYSTERECTUTERUS <=250 GRAM W TUBE/OVARY N/A 08/19/2017 LAPAROSCOPY, TOTAL HYST, UTERUS<250GMS, REM TUBE &/OR OVARY (WRVU 15) performed by Kody Toth MD at [facility] MAIN OR PRO UPPER GI ENDOSCOPY, BIOPSY N/A 06/23/2023 EGD WITH BIOPSY (WRVU 2.39) performed by Thomas Hawthorne MD at [facility] ENDOSCOPY FAMILY HISTORY: Does have a significant family history, including dad with DE at age 48. 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 PHYSICAL EXAMINATION: VITALS: LMP 02/28/2017 (Approximate) General: No apparent distress, well-dressed and resting comfortably in chair. HEENT: Normocephalic, pupils PERRL, EOMI JVD: Visualized but not elevated. Chest: Lung sounds are clear and equal bilaterally Heart: RRR, S1/S2, no murmurs/rubs/gallops Abdomen: Soft nontender/nondistended Extremities: Warm to the touch, pulses are present, no pedal edema Skin: Warm pink and dry Neuro: No focal deficits appreciated, cranial nerves II through XII grossly intact CARDIOLOGY RELEVANT STUDIES: EKG 02/2023 (outside) Sinus rhythm , HR 84, QRS 161, LBBB 2007 (reported) LBBB Echo 01/2023 LVEF 40-45%, septal motion w/ IVCD. Normal LV size RV normal size and function No valvular lesions. MPI 2022 No ischemia or scar. LVEF 41% LHC 2007 (reported) No obs dz MRI 02/16/2024: IMPRESSION 1. No evidence of myocardial ischemia on this stress perfusion cardiac MRI 2. Mildly reduced left ventricular systolic function quantitated at 50% with abnormal septal motion consistent with left bundle branch block 3. Normal right ventricular size and function I thoroughly reviewed the patient's current clinical status, the pertinent laboratory and recent cardiovascular or imaging studies, and the active management plan. IMPRESSION: Nikia Denton is a 58 y.o. female with history as above, seen in the heart failure clinic today for follow up after cMR. Nikia presents with some very concerning symptoms today of chest heaviness. She reports that theheaviness has been ongoing for the last 2 to 3 days and has been pretty consistent. She reports that she has some associated shortness of breath but no other associated symptoms. She states that the pain/heaviness does not radiate anywhere. She reports that the discomfort is a 4 out of 10. She alsostates that she has had a syncopal episode and had multiple near syncopal events over the last few weeks with associated palpitations. Twelve-lead EKG shows normal sinus rhythm with left lateral branch block. This has been her typical EKG. She did recently have a cardiac MRI which had shown no ischemic changes with the stress test portion she is continues to have mildly reduced left ventricular systolic function with an EF of 50% and abnormal septal motion consistent with a left bundle branch block. Due to her presenting symptoms and recent history of syncopal event with multiple near syncopal events with palpitations and now 2 to 3 days worth of chest heaviness I do feel she needs further workup to the underlying etiology causing her symptoms. For this reason we will be setting her to the emergency department for further evaluation for cardiac monitoring, cardiac enzyme, and should consideralso doing inflammatory markers. Do have concern for possible worsening output due to heart failurewith preserved EF versus myocarditis. Do feel that with her recent cardiac MRI and negative stress portion of the MRI that an ischemic cause is less likely but should be ruled out. I have discussed with the patient that she should be evaluated in the emergency department for further evaluation with potential for admission she is reluctant but is in agreement to go for further evaluation. Luis Alberto salazar was called and report was given to the emergency department. Labs were collected prior to today's visit to the clinic but have not yet resulted. Heart failure will continue to follow. PLAN: Luis Alberto salazar transferred to the emergency department Cardiac enzymes Inflammatory markers to evaluate for myocarditis Heart failure will continue to follow Malvin Russo APRN Advanced Heart Failure and Cardiac Transplant documented in this encounter Plan of Treatment Scheduled Orders Name Type Priority Associated Diagnoses Orde r Schedule EKG 12 Lead ECG Routine HFrEF (heart failure with reduced ejection fraction) Expected: 03/02/2024, Expires: 09/01/2024 documented as of this encounter Procedures Procedure Name Priority Date/Time Associated Diagnosis Comments EKG 12-LEAD Routine 03/02/2024 10:07 AM EDT documented in this encounter Results * EKG 12 Lead (03/02/2024 10:07 AM EDT) Ventricular rate 77 BPM MUSE SYSTEM Atrial Rate 77 BPM MUSE SYSTEM P-R Interval 164 ms MUSE SYSTEM QRS Duration 160 ms MUSE SYSTEM Q-T Interval 448 ms MUSE SYSTEM QTC Calculated (Bezet) 506 ms MUSE SYSTEM Calculated P [place] 70 degrees MUSE SYSTEM Calculated R [place] 35 degrees MUSE SYSTEM Calculated T [place] 102 degrees MUSE SYSTEM INTERPRETATION Normal sinus rhythm Left bundle branch block Abnormal ECG When compared with ECG of 16-FEB-2024 09:58, No significant change was found Confirmed by MD Jeff, Clay ([id number]) on 03/02/2024 3:55:15 PM MUSE SYSTEM 03/02/2024 10:0 7 AM EDT 03/02/2024 3:55 PM EDT Unknown ECG ORDERABLES MUSE SYSTEM * TSH [place] (03/02/2024 9:06 AM EDT) Thyroid Stimulating Hormone 1.29 0.27 - 4.20 mcIU/mL 03/02/2024 11:14 AM EDT [facility] Comment: Reference Interval (mcIU/mL): ?? Females: ? First Trimester: 0.23-3.88 ? Second Trimester: 0.22-3.90 ? Third Trimester: 0.44-4.66 Blood VENOUS BLOOD SPECIMEN / Unknown Venipuncture / Unknown 03/02/2024 9:06 AM EDT 03/02/2024 9:06 AM EDT Malvin Solis Liqukrysta PICKER CHEMISTRY ORDERABLE S [facility] [place] [address] * pro-Brain Natriuretic Peptide (03/02/2024 9:06 AM EDT) NT-proBNP 102 <=124 pg/mL 03/02/2024 11:14 AM EDT [facility] Blood VENOUS BLOOD SPECIMEN / Unknown Venipuncture / Unknown 03/02/2024 9:06 AM EDT 03/02/2024 9:06 AM EDT Malvin Russo PICKER CHEMISTRY ORDERABLE S Performing Organization Address City/[facility]/ZIP Co de Phone Number [facility] [place] [address] * Magnesium (03/02/2024 9:06 AM EDT) Magnesium 0.85 0.69 - 1.07 mMol/L 03/02/2024 11:14 AM EDT [facility] Blood VENOUS BLOOD SPECIMEN / Unknown Venipuncture / Unknown 03/02/2024 9:06 AM EDT 03/02/2024 9:06 AM EDT Malvin Solis Liqukrysta PICKER CHEMISTRY ORDERABLE S Performing Organization Address City/[facility]/ZIP Co de Phone Number [facility] [place] [address] * (ABNORMAL) Hepatic Function Panel (03/02/2024 9:06 AM EDT) Albumin 4.4 3.2 - 5.2 g/dL 03/02/2024 11:14 AM EDT [facility] Aspartate Aminotransferase 19 <=30 unit/L 03/02/2024 11:14 AM EDT [facility] Alanine Aminotransferase 30 0 - 30 unit/L 03/02/2024 11:14 AM EDT [facility] Alkaline Phosphatase 135(H) 35 - 105 unit/L 03/02/2024 11:14 AM EDT [facility] Bilirubin, Total 0.2 <=1.3 mg/dL 03/02/2024 11:14 AM EDT [facility] Bilirubin, Direct <0.2 0.0 - 0.3 mg/dL 03/02/2024 11:14 AM EDT [facility] Protein, Total 7.5 6.1 - 8.0 g/dL 03/02/2024 11:14 AM T [facility] Blood VENOUS BLOOD SPECIMEN / Unknown Venipuncture / Unknown 03/02/2024 9:06 AM EDT 03/02/2024 9:06 AM EDT Malvin Russo PICKER CHEMISTRY ORDERABLE S [facility] [place] [address] * (ABNORMAL) Basic Metabolic Panel Non-fasting (03/02/2024 9:06 AM EDT) Glucose 207(H) 65 - 199 mg/dL 03/02/2024 11:34 AM EDT [facility] Comment:Glucose Concentratio n >=200 mg/dL plus symptoms is consistent with Diabetes Mellitus. Blood Urea Nitrogen 19(H) 8 - 18 mg/dL 03/02/2024 11:34 AM EDT [facility] Creatinine 0.64(L) 0.70 - 1.20 mg/dL 03/02/2024 11:34 AM EDT [facility] Sodium 138 135 - 145 mMol/L 03/02/2024 11:34 AM [facility] Potassium 4.4 3.5 - 5.0 mMol/L 03/02/2024 11:34 AM [facility] Chloride 100 98 - 107 mMol/L 03/02/2024 11:34 AM [facility] Carbon Dioxide 25 22 - 31 mMol/L 03/02/2024 11:34 AM [facility] Anion Gap 13 5 - 15 mMol/L 03/02/2024 11:34 AM [facility] Calcium 9.5 8.5 - 10.5 mg/dL 03/02/2024 11:34 AM [facility] Est Glomerular Filtration Rate - Female 103 mL/min/1. 73 m?? 03/02/2024 11:34 AM [facility] Comment: This patient's estimated GFR was [...] Foundation Fasting Status No 03/02/2024 11:34 AM T [facility] Blood VENOUS BLOOD SPECIMEN / Unknown Venipuncture / Unknown 03/02/2024 9:06 AM EDT 03/02/2024 9:06 AM EDT Malvin Russo PICKER CHEMISTRY ORDERABLE S [facility] [place] [address] documented in this encounter Visit Diagnoses Diagnosis HFrEF (heart failure with reduced ejection fraction) documented in this encounter Care Teams Vault Attendant Relationship Specialty Start Date End Date Twan Pruitt PA [facility] [place] [address] PCP - General Internal Medicine 02/16/24 documented as of this encounter
--- OUTSIDE RECORDS SUMMARY | 2024-05-26 13:18 | XMS_ITS | Encounter Summary ---
Author Organization [place] [address] Care Team Providers Care Line Runner Name Role Phone Moise Lala MD Primary Care Provider [phone] Reason for Referral * Diagnostic Test (Routine) - Closed Specialty Diagnoses / Procedures Referred By Contac t Referred To Contact Radiology Diagnoses Diarrhea, unspecified type Elevated gastrin level Procedures NM PET CT Neuroendocrine (DETECTNET) Ana Maria Zacarias MD [facility] [place] [place] [address] [place] [address] Referral ID Status Reason Start Date Expiration Date V isits Requested Visits Authorized [id number] Closed Specialty Service Requested 04/11/2023 10/09/2024 1 1 Reason for Visit * Diagnostic Test (Routine) - Closed Specialty Diagnoses / Procedures Referred By Contac t Referred To Contact Radiology Diagnoses Diarrhea, unspecified type Elevated gastrin level Procedures NM PET CT Neuroendocrine (DETECTNET) Ana Maria Zacarias MD [facility] [place] [place] [address] [place] [address] Referral ID Status Reason Start Date Expiration Date V isits Requested Visits Authorized [id number] Closed Specialty Service Requested 04/11/2023 10/09/2024 1 1 Encounter Details Date Type Department Care Team (Latest Contact Info) Description 05/09/2023 11:24 AM EST Hospital Encounter [place] [address] Ana Maria Zacarias MD [facility] [place] [place] [address] Diarrhea, unspecified type; Elevated gastrin level Discharge Disposition: Home Social History Tobacco Use [...] Sig Dispensed Refills Start Date End Date Jardiance 10 mg tablet Take 10 mg [...] 2,000 unit Tablet Take by mouth daily. spironolactone (Aldactone) 25 mg tablet Take 1 tablet by mouth daily. 90 tablet 3 04/16/2023 06/23/2023 pantoprazole EC (Protonix) [address] tablet Take 40 mg by mouth daily. 03/18/2022 08/21/2023 traZODone (Desyrel) 50 mg tabletIndications:Insom cristina Take 2 tablets by mouth nightly. 04/08/2023 03/02/2024 zolpidem (Ambien) 5 mg Tablet 10/05/2021 06/23/2023 tiZANidine (ZANAFLEX) 2 mg Tablet 08/07/2017 08/21/2023 Biotin 5 mg Capsule Take by mouth daily. 03/02/2024 documented as of this encounter Plan of Treatment Not on file documented as of this encounter Procedures Procedure Name Priority Date/Time Associated Diagnosis Comments PET CT NEUROENDOCRINE (DETECTNET) Routine 05/09/2023 2:00 PM EST Diarrhea, unspecified type Elevated gastrin level documented in this encounter Results * NM PET CT [...] who have questions please contact the health caretaker that requested your imaging first. ? Electronically signed by: Florentin Kitchen MD, [facility] ([phone]), at 05/16/2023 3:11 PM Narrative 05/16/2023 3:11 PM EST EXAMINATION: NM [...] patients who have questions please contactthe health caretaker that requested your imaging first. Electronically signed by: Florentin Kitchen MD, [facility]([phone]), at 05/16/2023 3:11 PM Ana Maria Zacarias MD IMG PET ORDERABLES documented in this encounter Visit Diagnoses Diagnosis Diarrhea, unspecified type Elevated gastrin level Abnormality of secretion of gastrin documented in this encounter Care Teams Line Runner Relationship Specialty Start Date End Date Moise Lala MD PCP - General Family Medicine 06/26/17 02/15/24 documented as of this encounter
--- OUTSIDE RECORDS SUMMARY | 2024-05-26 13:18 | XMS_ITS | Encounter Summary ---
[place] [address] Care Team Providers Care Thinner Sprayer Name Role Phone Moise Lala MD Primary Care Provider [phone] Encounter Details Date Type Department Care Team (Latest Contact Info) Description 04/16/2023 Travel Social History Tobacco Use Types Packs/Day [...] on filedocumented in this encounter Care Teams Thinner Sprayer Relationship Specialty Start Date End Date Moise Lala MD PCP - General Family Medicine 06/26/17 02/15/24 documented as of this encounter
--- OUTSIDE RECORDS SUMMARY | 2024-05-26 13:18 | XMS_ITS | Encounter Summary ---
[place] [address] Care Team Providers Care Youth Career Specialist Name Role Phone Moise Lala MD Primary Care Provider [phone] Encounter Details Date Type Department Care Team (Latest Contact Info) Description 02/15/2024 Travel Social History Tobacco Use Types Packs/Day [...] on filedocumented in this encounter Care Teams Youth Career Specialist Relationship Specialty Start Date End Date Moise Lala MD PCP - General Family Medicine 06/26/17 02/15/24 documented as of this encounter
--- OUTSIDE RECORDS SUMMARY | 2024-05-26 13:18 | XMS_ITS | Encounter Summary ---
Author [facility] [place] [address] Care Team Providers Care Administrative Judge Name Role Phone Twan Pruitt Primary Care Provider + Encounter Details Date Type Department Care Team (Latest Contact Info) Description 02/28/2024 Travel Social History Tobacco Use Types Packs/Day [...] on filedocumented in this encounter Care Teams Administrative Judge Relationship Specialty Start Date End Date [place] [address] PCP - General Internal Medicine 02/16/24 documented as of this encounter
--- OUTSIDE RECORDS SUMMARY | 2024-05-26 13:18 | XMS_ITS | Encounter Summary ---
[place] [address] Care Team Providers Care Occupational Health Physician Name Role Phone Moise Lala MD Primary Care Provider [phone] Encounter Details Date Type Department Care Team (Latest Contact Info) Description 04/16/2023 9:20 AM EST Laboratory Appointment Lab [address] [place] [address] HFrEF (heart failure with reduced [...] Procedure Name Priority Date/Time Associated Diagnosis Comments PROTEIN ELECTROPHORESIS, URINE, RANDOM Routine 04/16/2023 9:30 AM EST HFrEF (heart failure with reduced ejection fraction) IMMUNOGLOBULIN FREE LIGHT CHAINS, SERUM Routine 04/16/2023 9:19 AM EST HFrEF (heart failure with reduced ejection fraction) TSH CASCADE Routine 04/16/2023 9:19 AM EST HFrEF (heart failure with reduced ejection fraction) IRON AND TIBC Routine 04/16/2023 9:19 AM EST HFrEF (heart failure with reduced ejection fraction) RHEUMATOID FACTOR, QUANT Routine 04/16/2023 9:19 AM EST HFrEF (heart failure with reduced ejection fraction) HC DNA AB DS ([place]) Routine 04/16/2023 9:19 AM EST HFrEF (heart failure with reduced ejection fraction) HC SERUM PROT. ELECTROPHORESIS Routine 04/16/2023 9:19 AM EST HFrEF (heart failure with reduced ejection fraction) PRO-BRAIN NATRIURETIC PEPTIDE Routine 04/16/2023 9:19 AM EST HFrEF (heart failure with reduced ejection fraction) HEMOGLOBIN A1C Routine 04/16/2023 9:19 AM EST HFrEF (heart failure with reduced ejection fraction) FERRITIN Routine 04/16/2023 9:19 AM EST HFrEF (heart failure with reduced ejection fraction) LIPID PANEL (REFLEX DIRECT LDL) Routine 04/16/2023 9:19 AM EST HFrEF (heart failure with reduced ejection fraction) COMPREHENSIVE METABOLIC PANEL Routine 04/16/2023 9:19 AM EST HFrEF (heart failure with reduced ejection fraction) documented in this encounter Results * (ABNORMAL) Protein Electrophoresis, urine, random (04/16/2023 9:30 AM EST) Protein, Urine 14(H) 0 - 12 mg/dL [facility] U Albumin 38 % total [facility] Globulin, Urine 62 % total [facility] M1 Band, Urine None Detected [facility] UPEP Comments See Note [facility] Comment: There is no evidence of clonal free light chains in this patient's urine sample. Urine 04/16/2023 9:30 AM EST 04/16/2023 9:39 AM EST Narrative Resulting Agency Comment Spec In Lab Giselle Nelson MD URINE ORDERABLES [facility] [address] * (ABNORMAL) Comprehensive metabolic panel (non-fasting) (04/16/2023 9:19 AM EST) Glucose 148 65 - 199 mg/dL [facility] Comment:Diabetes: >=200 mg/d L plus symptoms Blood Urea Nitrogen 16 8 - 18 mg/dL [facility] Creatinine 0.67(L) 0.70 - 1.20 mg/dL [facility] Sodium 139 135 - 145 mmol/L [facility] Potassium 4.0 3.5 - 5.0 mmol/L [facility] Comment: Please note: ??Patients with WBC >100,000 may have falsely elevated Potassium levels. ??For accurate Potassium quantification in these patients send serum separator tube (gold top) for subsequent determinations. ??Contact the Clinical Chemistry Laboratory if there are any questions. Chloride 101 98 - 107 mmol/L [facility] Carbon Dioxide 23 22 - 31 mmol/L [facility] Anion Gap 15 5 - 15 mmol/L [facility] Calcium 9.4 8.5 - 10.5 mg/dL [facility] Protein, Total 7.0 6.1 - 8.0 g/dL [facility] Albumin 4.4 3.2 - 5.2 g/dL [facility] Aspartate Aminotransferase 19 0 - 30 unit/L [facility] Alanine Aminotransferase 27 0 - 30 unit/L [facility] Alkaline Phosphatase 152(H) 35 - 105 unit/L [facility] Bilirubin, Total 0.3 0.2 - 1.3 mg/dL [facility] Est Glomerular Filtration Rate 103 >=60 mL/min/1. 73 m?? [facility] Comment: This patient's estimated GFR was [...] MD CHEMISTRY ORDERAB LES Performing Organization Address City/[facility] Co de Phone Number [facility] [place] [address] * pro-Brain Natriuretic Peptide (04/16/2023 9:19 AM EST) NT-proBNP 58 <=124 pg/mL [facility] Blood 04/16/2023 9:19 AM EST 04/16/2023 9:29 AM EST Narrative Resulting Agency Comment Spec In Lab Giselle Nelson MD CHEMISTRY ORDERAB LES Performing Organization Address [facility] Co de Phone Number [facility] [place] [address] * Lipid Panel (Reflex Direct LDL) (04/16/2023 9:19 AM EST) Cholesterol, Total 180 mg/dL M [facility] Comment: Lower Risk: <200 mg/dL Average Risk: 200-239 mg/dL Higher Risk: >de=208 mg/dL Triglyceride 165 mg/dL [facility] Comment: Average Risk/Lower Risk: <150 mg/dL Borderline High Risk: 150-199 mg/dL High Risk: 200-499 mg/dL Very High Risk: >[place]=631 mg/dL HDL Cholesterol 50 mg/dL [facility] Comment: Males: ?? Higher Risk: <40 mg/dL Females: ?? Higher Risk: <50 mg/dL LDL Cholesterol 97 mg/dL [facility] Comment: Lowest Risk: <100 mg/dL Lower Risk: 100-129 mg/dL Borderline High Risk: 130-159 mg/dL High Risk: 160-189 mg/dL Very High Risk: >lv=267 mg/dL Cholesterol/HDL Ratio 3.6 ratio [facility] Lipid Interpretation See Note [facility] Comment: Lipid management should be guided by a patient? s ASCVD risk, goals and preferences. ACC/AHA Guidelines recommend high intensity statin if clinical ASCVD or LDL greater than or equal to 190 mg/dL. http://[employer].com/PFD-VJD-Fcbxrkboi Adults aged 40-75 with LDL 70-189 mg/dL should have their 10 year ASCVD risk estimated with the ACC/AHA ASCVD risk camera operator http://tools.acc.org/FFKMT-Kome-Guhgwutit/ Statin should be discussed if risk greater [...] MD CHEMISTRY ORDERAB LES Performing Organization Address City/State/[facility] Co de Phone Number [facility] [address] * (ABNORMAL) Hemoglobin A1c (04/16/2023 9:19 AM EST) Hemoglobin A1c 7.7(H) 4.3 - 5.6 % [facility] Comment: Reference Range: 4.3 - 5.6% [...] Mellitus, Diabetes Care 2013; 36: Suppl. 1, U20-16 Estimated Average Glucose 173 mg/dL [facility] Comment: Note: The eAG calculation has not been proven valid for women, individuals below 18 years old or above 70 years old, or individuals with hemoglobinopathies. Estimated average glucose (eAG) is calculated from the equation described in: [employer] LEWIS, Tish J, Waqas R, et al. ??Translating the A1C assay into estimated average glucose values. ??Diabetes Care 2008:31(8):0824-2147. Additional resources are available on the ADA website (diabetes.org). Blood 04/16/2023 9:19 AM EST 04/16/2023 9:29 AM EST Narrative Resulting Agency Comment Spec In Lab Giselle Nelson MD CHEMISTRY ORDERAB LES Performing Organization Address City/[facility] Co de Phone Number [facility] [address] * (ABNORMAL) Iron and TIBC (04/16/2023 9:19 AM EST) Iron 53 30 - 150 mcg/dL [facility] TIBC 442 250 - 450 mcg/dL [facility] Iron Saturation 12(L) 20 - 50 % [facility] Blood 04/16/2023 9:19 AM EST 04/16/2023 9:29 AM EST Narrative Resulting Agency Comment Spec In Lab Giselle Nelson MD CHEMISTRY ORDERAB LES Performing Organization Address [facility] Co de Phone Number [facility] [address] * (ABNORMAL) Ferritin (04/16/2023 9:19 AM EST) Ferritin 13(L) 30 - 400 ng/mL [facility] Comment: Pediatric reference ranges not verified at [facility], interpret with caution. Reference ranges for females greater than 50 years of age approach values for men, i.e., 30-400 ng/mL. Blood 04/16/2023 9:19 AM EST 04/16/2023 9:29 AM EST Narrative Resulting Agency Comment Spec In Lab Giselle Nelson MD CHEMISTRY ORDERAB LES Performing Organization Address [facility] Co de Phone Number [facility] [place] [address] * Protein Electrophoresis, serum (04/16/2023 9:19 AM EST) Total Prot Electrophoresis 6.8 6.1 - 8.0 g/dL [facility] Albumin Electrophoresis 4.02 3.20 - 5.20 g/dL [facility] Alpha 1 Globulin 0.24 0.10 - 0.30 g/dL [facility] Alpha 2 Globulin 0.88 0.40 - 0.90 g/dL [facility] Beta Globulin 0.90 0.50 - 1.00 g/dL [facility] Gamma Globulin 0.77 0.50 - 1.30 g/dL [facility] M1 Band None Detected None Detected [facility] Blood 04/16/2023 9:19 AM EST 04/16/2023 9:29 AM EST Narrative Resulting Agency Comment Spec In Lab Giselle Nelson MD CHEMISTRY ORDERAB LES Performing Organization Address City/[facility] Co de Phone Number [facility] [address] * Free Light Chains, Serum (04/16/2023 9:19 AM EST) Carlyss Free Light Chain 2.28 0.72 - 2.75 mg/dL [facility] Lambda Free Light Chain 1.72 0.57 - 2.15 mg/dL [facility] Carlyss/Lambda FLC Ratio 1.3256 0.4000 - 2.5800 [facility] Blood 04/16/2023 9:19 AM EST 04/16/2023 9:29 AM EST Narrative Resulting Agency Comment Spec In Lab Giselle Nelson MD CHEMISTRY ORDERAB LES Performing Organization Address City/[facility] Co de Phone Number [facility] [address] * TSH [place] (04/16/2023 9:19 AM EST) Thyroid Stimulating Hormone 1.66 0.27 - 4.20 mcIU/mL [facility] Comment: Reference Interval (mcIU/mL): Females: ??First Trimester: 0.23-3.88 ??Second Trimester: 0.22-3.90 ??Third Trimester: 0.44-4.66 Blood 04/16/2023 9:19 AM EST 04/16/2023 9:29 AM EST Narrative Resulting Agency Comment Spec In Lab Giselle Nelson MD CHEMISTRY ORDERAB LES [facility] [address] * FRANCES Antibody Screen (04/16/2023 9:19 AM EST) FRANCES Ab Screen Negative Negative [facility] Comment: This antinuclear antibody (FRANCES) screen is a qualitative test performed using a fluoroenzyme immunoassay on the Nanoleafdia 250 analyzer. This screen is designed to [...] performed by the Special Chemistry Laboratory at [facility]. This change in testing location is associated with a change is testing method and reference intervals. Please review the results of this test in association with the posted reference intervals. dsDNA Ab 1.0 <=15.0 IU/mL [facility] Comment: <10 negative [...] performed by the Special Chemistry Laboratory at [facility]. This change in testing location is associated with a change is testing method and reference intervals. Please review the results of this test in association with the posted reference intervals. Blood 04/16/2023 9:19 AM EST 04/16/2023 10:44 AM EST Narrative Resulting Agency Comment Spec In Lab Giselle Nelson MD LAB SEND OUT ORDE RABLES Performing Organization Address City/[facility] Co de Phone Number [facility] [address] * Rheumatoid factor, quant (04/16/2023 9:19 AM EST) Rheumatoid Factor <10 <=14 IU/mL [facility] Blood 04/16/2023 9:19 AM EST 04/16/2023 9:29 AM EST Narrative Resulting Agency Comment Spec In Lab Giselle Nelson MD CHEMISTRY ORDERAB LES Performing Organization Address [facility] Co de Phone Number [facility] [address] documented in this encounter Visit Diagnoses Diagnosis HFrEF (heart failure with reduced ejection fraction) documented in this encounter Care Teams Occupational Health Physician Relationship Specialty Start Date End Date Moise Lala MD PCP - General Family Medicine 06/26/17 02/15/24 documented as of this encounter
--- OUTSIDE RECORDS SUMMARY | 2024-05-26 13:18 | XMS_ITS | Encounter Summary ---
[place] [address] Care Team Providers Care Educational Interpreter Name Role Phone Moise Lala MD Primary Care Provider [phone] Encounter Details Date Type Department Care Team (Late st Contact Info) Description 06/18/2023 Telephone [place] [id number] Kami Senior Social History Tobacco Use Types Packs/Day Years [...] encounter Miscellaneous Notes * Telephone Encounter - Kami Senior - 06/18/2023 11:31 AM EST Nikia Denton [id number] Diagnosis/Indication: elevated gastrin, net spot with diffuse [...] you ever had a/an Upper Endoscopy before? Yes: Date 11/07/21 If yes, did you have any problems with the procedure (such as waking up during the procedure, pain or difficulties afterwards, etc.)? No What type of sedation was used: General Anesthesia Do you take any blood thinners or [...] to. Yes: Controlled by diet or medication? Medication Do you take any iron supplements or vitamins that contain iron? No Do you have a preference regarding the gender of your provider? Yes Dr. Zacarias ANESTHESIA QUESTIONS (YES to any question, please [...] use of a c- pap machine? Yes cpap Do you use an oxygen tank at [...] NEW referral patient; skip this question if [facility] provider ordered the procedure.) No Is there any other information or concerns you would like to us to share with your care team in relation to your upcoming scheduled procedure? No You must have a responsible democrat who will drive you to your procedure, stay on campus for the entire duration of your procedure, and drive you home from your procedure. Who will likely be your delivery driver assistant for the procedure? *Please Verify the height and weight, and adjust [...] on filedocumented in this encounter Care Teams Educational Interpreter Relationship Specialty Start Date End Date Moise Lala MD PCP - General Family Medicine 06/26/17 02/15/24 documented as of this encounter
--- OUTSIDE RECORDS SUMMARY | 2024-05-26 13:18 | XMS_ITS | Encounter Summary ---
Author Organization [facility] [place] [address] Care Team Providers Care Hr Manager Name Role Phone Twan Pruitt Primary Care Provider + Encounter Details Date Type Department Care Team (Latest Contact Info) Description 03/02/2024 Travel Social History Tobacco Use Types Packs/Day [...] on filedocumented in this encounter Care Teams Hr Manager Relationship Specialty Start Date End Date [place] [address] PCP - General Internal Medicine 02/16/24 documented as of this encounter
--- OUTSIDE RECORDS SUMMARY | 2024-05-26 13:18 | XMS_ITS | Encounter Summary ---
[place] [address] Care Team Providers Care Motion Picture Scene Builder Name Role Phone Twan Pruitt Primary Care Provider + Reason for Visit * Reason Comments Chest Pain Encounter Details Date Type Department Care Team (Late st Contact Info) Description 03/02/2024 1:09 PM EDT - 03/02/2024 1:14 PM EDT [place] [id number] Discharge Disposition: Home Social History Tobacco Use [...] Mass Index 37.12 03/02/2024 10:44 AM EDT documented in this encounter Medications at Time [...] 2,000 unit Tablet Take by mouth daily. documented as of this encounter ED Notes * Yasmeen Nieves LPN - 03/02/2024 1:14 PM EDT Pt left AMA. * Vivi Kidd MD - 03/02/2024 1:14 PM EDT Review of the chart indicates that this patient was triaged after being sent to the ED as a code white from cardiology clinic. Reviewing the cardiology note indicates that she was experiencing 2 to 3days of chest pressure and had also reported a syncopal event. After triage, patient had an EKG and laboratory studies performed. EKG showed normal sinus rhythm with a rate of 68 and no evidence of acute ischemia. A left bundle branch block was present. When compared to prior EKG there was no significant change. I have reviewed her chest x-ray which shows no acute cardiopulmonary disease. Initial troponin was less than 6 which is reassuring against acute coronary syndrome. Patient's chart indicates that after waiting several hours in the waiting room, she was invited to be placed in room 20 to be evaluated by a provider. However, at that time, patient chose to leave AMA. I did not see this patient personally or staff her care with any of the residents. I have reviewed all of her studies including EKGs, chest x-ray, and labs to ensure that there were no acute finding s requiring the patient to be called back to the ED. Of the testing that was able to be performed based on the patient's triage complaints, all of the studies were reassuring. However, as I was not able to take a history or perform a physical exam, I can make no further comment about the adequacy of the workup performed prior to the patient leaving AMA. From review of the chart, it appears that the patient chose to leave AMA before being assigned to any provider. Labs Reviewed CBC (WITH DIFF) - Abnormal; Notable for the following components: Result Value Hemoglobin 10.6 (*) Hematocrit 35.1 (*) Mean Cell Volume 76.3 (*) Mean Cell Hemoglobin 23.0 (*) Mean Cell Hemoglobin Concentration 30.2 (*) RDW Standard Deviation 47.3 (*) RDW coefficient of variation 17.3 (*) All other components within normal limits BASIC METABOLIC PANEL - Abnormal; Notable for the following components: Glucose 271 (*) Creatinine 0.61 (*) Carbon Dioxide 21 (*) All other components within normal limits TROPONIN-T, HIGH SENSITIVITY INITIAL PERFORMABLE - Normal BLUE TUBE HOLD GOLD TUBE HOLD TROPONIN - SERIES Narrative: The following orders were created for panel order Troponin - Series. Procedure Abnormality Status --------- ------ Troponin-T, High Sensiti...[[id number]] Normal Final result Troponin-T, High Sensiti...[[id number]] Please view results for these tests on the individual orders. TROPONIN-T, HIGH SENSITIVITY 1 HOUR PERFORMABLE XR Chest PA & Lateral (Generic) Final Result No acute findings Thank you for letting us participate in the care of this patient. If you are a health care provider and have any questions regarding this report, please contact the number below. For patients who have questions please contact the health care asst that requested your imaging first. Vivi Kidd MD 03/07/24 0234 * Starr Sampson RN - 03/02/2024 1:13 PM EDT Pt called back to go to room but reported that she wants to leave AMA. IV removed by PATIENT INFORMATION COORDINATOR and AMA paperwork signed. * Starr Taylor RN - 03/02/2024 10:33 AM EDT TELE ED: cardiology clinic reports 2-3 days of chest pain, and presyncopal symptoms. EKG done in clinic, stress test and cardiac MRI done recently. Arriving via wheelchair. documented in this encounter Miscellaneous Notes * ED Triage - Ellie Ramon RN - 03/02/2024 10:42 AM EDT Code white from cards clinic. Syncope episode 2 weeks ago. Was complaining of crushing chest pain, now saying 4/10 discomfort. NSR w LBBB on EKG with life safety. documented in this encounter Plan of Treatment Pending Results Name Type Priority Associated Diagnoses Date /Time Troponin - Series Lab STAT 024 11:02 AM EDT Scheduled Orders Name Type Priority Associated Diagnoses Orde r Schedule Troponin - Series Lab STAT One Emil e for 1 Occurrences starting 03/02/2024 until 03/02/2024 Troponin-T, High Sensitivity 1 Hour Lab STAT Once for 1 Oc currences starting 03/02/2024 until 03/02/2024 documented as of this encounter Procedures Procedure Name Priority Date/Time Associated Diagnosis Comments XR CHEST PA AND LATERAL STAT 03/02/2024 11:09 AM EDT TROPONIN-T, HIGH SENSITIVITY INITIAL PERFORMABLE STAT 03/02/2024 11:02 AM EDT GOLD TUBE HOLD STAT 03/02/2024 11:02 AM EDT BLUE TUBE HOLD STAT 03/02/2024 11:02 AM EDT CBC (WITH DIFF) STAT 03/02/2024 11:02 AM EDT BASIC METABOLIC PANEL STAT 03/02/2024 11:02 AM EDT EKG 12-LEAD STAT 03/02/2024 10:46 AM EDT documented in this encounter Results * XR Chest PA & Lateral (Generic) (03/02/2024 11:09 AM EDT) Pathologist [employer] WORKSTATION ID [id number] DH RAD Anatomical Region Laterality Modality Chest N/A Digital Radiogra phy Impressions 03/02/2024 11:29 AM EDT No acute findings Thank you for letting us participate in the care of this patient. ??If you are a health care provider and have any questions regarding this report, please contact the number below. ??For patients who have questions please contact the health care asst that requested your imaging first. ? Electronically signed by: Lisa Palmer MD, [facility] ([phone]), at 03/02/2024 11:29 AM Narrative 03/02/2024 11:29 AM EDT EXAMINATION: XR [...] patients who have questions please contactthe health care asst that requested your imaging first. Vivi Kidd MD IMG DX ORDERABLES * Gold Tube HOLD (03/02/2024 11:02 AM EDT) Pathologist [facility] Gold Hold Hold for Add-on 03/02/2024 1:02 PM EDT [facility] Blood VENOUS BLOOD SPECIMEN / Unknown Venipuncture / Unknown 03/02/2024 11:02 AM EDT 03/02/2024 11:10 AM EDT Vivi Kidd MD CHEMISTRY ORDERABLES [facility] [place] [address] * Troponin-T, High Sensitivity (03/02/2024 11:02 AM EDT) Troponin-T, High Sensitivity Initial <6 <=14 ng/L 03/02/2024 12:07 PM EDT [facility] Comment: This patient's troponin T [...] troponin value can be found in the [facility] Test Catalog Troponin - [email or web address]/catalogs/565/files/[email or web address] Reference: Fourth [place] Definition of Myocardial Infarction. Journal of the [place] College of Cardiology 2018;72:1544-8787 Blood VENOUS BLOOD SPECIMEN / Unknown Venipuncture / Unknown 03/02/2024 11:02 AM EDT 03/02/2024 11:07 AM EDT Vivi Kidd MD CHEMISTRY ORDERABLES [facility] [place] [address] * Blue Tube HOLD (03/02/2024 11:02 AM EDT) Blue Hold Hold for Add-on 03/02/2024 1:02 PM EDT [facility] Blood VENOUS BLOOD SPECIMEN / Unknown Venipuncture / Unknown 03/02/2024 11:02 AM EDT 03/02/2024 11:07 AM EDT Vivi Kidd MD HEMATOLOGY ORDERABLE S [facility] [place] [address] * (ABNORMAL) Basic Metabolic Panel (03/02/2024 11:02 AM EDT) Pathologist [facility] Glucose 271(H) 65 - 199 mg/dL 03/02/2024 1:08 PM EDT [facility] Comment:Glucose Concentratio n >=200 mg/dL plus symptoms is consistent with Diabetes Mellitus. Blood Urea Nitrogen 18 8 - 18 mg/dL 03/02/2024 1:08 PM EDT [facility] Creatinine 0.61(L) 0.70 - 1.20 mg/dL 03/02/2024 1:08 PM EDT [facility] Sodium 136 135 - 145 mMol/L 03/02/2024 1:08 PM EDT [facility] Comment:This result was prev iously suppressed from the chart. Potassium 4.3 3.5 - 5.0 mMol/L 03/02/2024 1:08 PM EDT [facility] Comment:This result was prev iously suppressed from the chart. Chloride 101 98 - 107 mMol/L 03/02/2024 1:08 PM EDT [facility] Comment:This result was prev iously suppressed from the chart. Carbon Dioxide 21(L) 22 - 31 mMol/L 03/02/2024 1:08 PM EDT [facility] Anion Gap 14 5 - 15 mMol/L 03/02/2024 1:08 PM EDT [facility] Comment:This result was prev iously suppressed from the chart. Calcium 9.5 8.5 - 10.5 mg/dL 03/02/2024 1:08 PM EDT [facility] Est Glomerular Filtration Rate - Female 104 mL/min/1. 73 m?? 03/02/2024 1:08 PM EDT [facility] Comment: This patient's estimated GFR [...] AM EDT Vivi Kidd MD CHEMISTRY ORDERABLES [facility] [place] [address] * (ABNORMAL) CBC (with Diff) (03/02/2024 11:02 AM EDT) White Blood Cell 6.72 4.00 - 9.50 x10(3)/mc L 03/02/2024 11:18 AM EDT [facility] Red Blood Cell 4.60 4.00 - 5.21 x10(6)/mc L 03/02/2024 11:18 AM EDT [facility] Hemoglobin 10.6(L) 11.7 - 15.5 g/dL 03/02/2024 11:18 AM EDT [facility] Hematocrit 35.1(L) 35.7 - 45.8 % 03/02/2024 11:18 AM EDT [facility] Mean Cell Volume 76.3(L) 82.6 - 94.4 fL 03/02/2024 11:18 AM [facility] Mean Cell Hemoglobin 23.0(L) 27.1 - 32.0 pg 03/02/2024 11:18 AM [facility] Mean Cell Hemoglobin Concentration 30.2(L) 31.7 - 35.0 g/dL 03/02/2024 11:18 AM [facility] Platelet 268 145 - 357 x10(3)/mc L 03/02/2024 11:18 AM [facility] Mean Platelet Volume 10.1 7.6 - 12.9 fL 03/02/2024 11:18 AM [facility] RDW Standard Deviation 47.3(H) 37.0 - 46.0 fL 03/02/2024 11:18 AM [facility] RDW coefficient of variation 17.3(H) 11.5 - 14.1 % 03/02/2024 11:18 AM [facility] NRBC% auto 0.0 % 03/02/2024 11:18 AM [facility] NRBC Absolute <0.01 <0.01 x10(3)/mc L 03/02/2024 11:18 AM [facility] Neutrophil % 60.7 % 03/02/2024 11:18 AM [facility] Neutrophil Absolute (ANC) - Automated 4.08 1.70 - 6.10 x10(3)/mc L 03/02/2024 11:18 AM [facility] Lymph % 29.8 % 03/02/2024 11:18 AM [facility] Lymph Absolute 2.00 0.90 - 3.20 x10(3)/mc L 03/02/2024 11:18 AM [facility] Monocyte % 7.0 % 03/02/2024 11:18 AM [facility] Monocyte Absolute 0.47 0.30 - 0.90 x10(3)/mc L 03/02/2024 11:18 AM EDT [facility] Eos % 1.3 % 03/02/2024 11:18 AM EDT [facility] Eos Absolute 0.09 0.00 - 0.40 x10(3)/mc L 03/02/2024 11:18 AM EDT [facility] Basophil % 0.9 % 03/02/2024 11:18 AM EDT [facility] Baso Absolute 0.06 0.00 - 0.10 x10(3)/mc L 03/02/2024 11:18 AM EDT [facility] Immature Gran % 0.3 % 11:18 AM EDT [facility] Immature Gran Absolute <0.04 0.00 - 0.04 x10(3)/mc L 03/02/2024 11:18 AM EDT [facility] Blood VENOUS BLOOD SPECIMEN / Unknown Venipuncture / Unknown 03/02/2024 11:02 AM EDT 03/02/2024 11:07 AM EDT Vivi Kidd MD HEMATOLOGY ORDERABLE S Performing Organization Address City/State/[facility] Co de Phone Number [facility] [place] [address] * EKG 12 Lead (03/02/2024 10:46 AM EDT) Ventricular rate 68 BPM MUSE SYSTEM Atrial Rate 68 BPM MUSE SYSTEM P-R Interval 170 ms MUSE SYSTEM QRS Duration 164 ms MUSE SYSTEM Q-T Interval 478 ms MUSE SYSTEM QTC Calculated (Bezet) 508 ms MUSE SYSTEM Calculated P [place] 33 degrees MUSE SYSTEM Calculated R [place] 11 degrees MUSE SYSTEM Calculated T [place] 129 degrees MUSE SYSTEM INTERPRETATION Normal sinus rhythm Left bundle branch block Abnormal ECG When compared with ECG of 02-MAR-2024 10:07, (unconfirmed) No significant change was found Confirmed by MD Jeff, Clay ([id number]) on 03/02/2024 3:55:19 PM MUSE SYSTEM 03/02/2024 10:4 6 AM EDT 03/02/2024 3:55 PM EDT Vivi Kidd MD ECG ORDERABLES [email or web address] documented in this encounter Visit Diagnoses Not on filedocumented in this encounter Active and Recently Administered Medications Times are shown in EDT. Scheduled Medication Order 02/29/2024 03/01/2024 03/02/2024 aspirin chewable tablet 324 mg 324 mg, Oral, ONCE, 1 dose, On Fri03/02/24 at 1050, Unless allergic or given Prior To Admission (LINEN CHECKER). If partial dose administered LINEN CHECKER administer remaining MG for a total dose of 325 mg/day., STAT 1050 (Due) documented in this encounter Care Teams Motion Picture Scene Builder Relationship Specialty Start Date End Date Twan Pruitt PA [address] [place] [address] PCP - General Internal Medicine 02/16/24 documented as of this encounter
--- OUTSIDE RECORDS SUMMARY | 2024-05-26 13:18 | XMS_ITS | Encounter Summary ---
[place] [address] Care Team Providers Care Horticulturalist Name Role Phone Moise Lala MD Primary Care Provider [phone] Encounter Details Date Type Department Care Team (Latest Contact Info) Description 04/12/2023 Travel Social History Tobacco Use Types Packs/Day [...] on filedocumented in this encounter Care Teams Horticulturalist Relationship Specialty Start Date End Date Moise Lala MD PCP - General Family Medicine 06/26/17 02/15/24 documented as of this encounter
--- OUTSIDE RECORDS SUMMARY | 2024-05-26 13:18 | XMS_ITS | Encounter Summary ---
Author Organization [facility] [place] [address] Care Team Providers Care Webfocus Developer Name Role Phone Moise Lala MD Primary Care Provider [phone] Reason for Visit * Diagnostic Test (Routine) - Closed Specialty Diagnoses / Procedures Referred By Contac t Referred To Contact Radiology Diagnoses Diarrhea, unspecified type Elevated gastrin level Procedures NM PET CT Neuroendocrine (DETECTNET) Ana Maria Zacarias MD [facility] [place] [address] [place] [address] Referral ID Status Reason Start Date Expiration Date V isits Requested Visits Authorized [id number] Closed Specialty Service Requested 04/11/2023 10/09/2024 1 1 Encounter Details Date Type Department Care Team (Latest Contact Info) Description 05/09/2023 11:25 AM EST - 05/09/2023 11:59 PM [facility] Hospital [place] [address] Ana Maria Zacarias MD [facility] [place] [address] Discharge Disposition: Home Social History Tobacco Use [...] who have questions please contact the health day care attendant that requested your imaging first. ? Electronically signed by: Florentin Kitchen MD, [facility] ([phone]), at 05/16/2023 3:11 PM Narrative 05/16/2023 3:11 [...] and visualized appendicular skeleton. Procedure Note Florentin Kitcehn MD - 05/16/2023 EXAMINATION: NM PET CT [...] patients who have questions please contactthe health day care attendant that requested your imaging first. Electronically signed by: Florentin Kitchen MD, [facility]([phone]), at 05/16/2023 3:11 PM Ana Maria Zacarias MD IMG PET ORDERABLES documented in this encounter Visit Diagnoses Not on filedocumented in this encounter Administered Medications Inactive Administered Medications - up to 3 most recent administrations Medication Order MAR Action Action Date Dose Rate Site copper CU-64 dotatate (Detectnet) injection 3-7 mCi 3-7 mCi, Intravenous, ONCE PRN, 1 dose, Starting on Fri05/09/23 at 1224, Until Fri05/09/23 at 1215, Per Protocol, Radiology Contrast, Routine Given 05/09/2023 12:15 PM EST 4.1 mCi documented in this encounter Care Teams Webfocus Developer Relationship Specialty Start Date End Date Moise Lala MD PCP - General Family Medicine 06/26/17 02/15/24 documented as of this encounter
--- OUTSIDE RECORDS SUMMARY | 2024-05-26 13:19 | XMS_ITS | Encounter Summary ---
[place] [address] Care Team Providers Care Signs Cleaner Name Role Phone Moise Lala MD Primary Care Provider [phone] Encounter Details Date Type Department Care Team (Latest Contact Info) Description 04/08/2023 11:40 AM EST Laboratory Appointment Lab [address] [place] [address] Diarrhea, unspecified type; Elevated liver enzymes Social History Tobacco Use Types Packs/Day Years [...] Procedure Name Priority Date/Time Associated Diagnosis Comments HEMOGRAM Routine 04/08/2023 10:57 AM EST Elevated liver enzymes DIFFERENTIAL, AUTOMATED Routine 04/08/2023 10:57 AM EST Elevated liver enzymes CHROMOGRANIN A Routine 04/08/2023 10:57 AM EST Diarrhea, unspecified type HEPATITIS C ANTIBODY Routine 04/08/2023 10:57 AM EST Elevated liver enzymes HEPATITIS A ANTIBODY, TOTAL Routine 04/08/2023 10:57 AM EST Elevated liver enzymes HEPATITIS B CORE ANTIBODY, TOTAL Routine 04/08/2023 10:57 AM EST Elevated liver enzymes HIV SCREEN, 4TH GENERATION ([facility]/CGP/APD/NLH) Routine 04/08/2023 10:57 AM EST Elevated liver enzymes HEPATITIS B SURFACE ANTIBODY Routine 04/08/2023 10:57 AM EST Elevated liver enzymes HEPATITIS B SURFACE ANTIGEN Routine 04/08/2023 10:57 AM EST Elevated liver enzymes PROTHROMBIN TIME Routine 04/08/2023 10:5 7 AM EST Elevated liver enzymes CBC (WITH DIFF) Routine 04/08/2023 10:57 AM EST Elevated liver enzymes TSH Routine 04/08/2023 10:57 AM EST Diarrhea, unspecified type GASTRIN Routine 04/08/2023 10:57 AM EST Diarrhea, unspecified type COMPREHENSIVE METABOLIC PANEL Routine 04/08/2023 10:57 AM EST Elevated liver enzymes documented in this encounter Results * Differential, Automated (04/08/2023 10:57 AM EST) Neutrophil % 58.6 % [facility] Neutrophil Absolute 4.01 1.70 - 6.10 x10(3)/[facility] LAB[facility] Lymph % 30.8 % [facility] Lymphocytes Abs 2.1 0.9 - 3.2 x10(3)/[facility] LABORATORY Monocyte % 7.4 % [facility] Monocyte Abs 0.5 0.3 - 0.9 x10(3)/[facility] LABORATORY Eos % 2.0 % [facility] Eosinophils Abs 0.1 0.0 - 0.4 x10(3)/[facility] LABORATORY Basophil % 0.9 % [facility] Baso Absolute 0.1 0.0 - 0.1 x10(3)/mcL [facility] Immature Gran % 0.30 % [facility] Comment: Immature granulocytes(IG's)percentage and absolute count will include metamyelocytes, myelocytes, and promyelocytes. Blood smears from CBCs yielding IG's will be scanned manually for concordance. If this scan disagrees with the automated IG or if promyelocytes are noted, a manual differential will be performed. Immature Gran Absolute 0.02 0.00 - 0.04 x10(3)/[facility] LABORATORY Blood 04/08/2023 10:5 7 AM EST 04/08/2023 11:02 AM EST Narrative Resulting Agency Comment Spec In Lab Ana Maria Zacarias MD HEMATOLOGY ORDERABLE S Performing Organization Address City/State/[facility] Co de Phone Number [facility] [place] [address] * (ABNORMAL) Hemogram (04/08/2023 10:57 AM EST) White Blood Cell 6.8 4.0 - 9.5 x10(3)/mc L [facility] Red Blood Cell 4.66 4.00 - 5.21 x10(6)/mc L [facility] Hemoglobin 12.8 11.7 - 15.5 g/dL [facility] Hematocrit 39.1 35.7 - 45.8 % [facility] Mean Cell Volume 83.9 82.6 - 94.4 fL [facility] Mean Cell Hemoglobin 27.5 27.1 - 32.0 pg [facility] Mean Cell Hemoglobin Concentration 32.7 31.7 - 35.0 g/dL [facility] Platelet 243 145 - 357 x10(3)/mc L [facility] RDW Standard Deviation 46.7(H) 37.0 - 46.0 fL [facility] RDW coefficient of variation 15.3(H) 11.5 - 14.1 % [facility] Mean Platelet Volume 10.0 7.6 - 12.9 fL [facility] NRBC% auto 0.0 % [facility] NRBC Absolute 0.000 0.000 - 0.000 x10(3)/mc L [facility] Blood 04/08/2023 10:5 7 AM EST 04/08/2023 11:02 AM EST Narrative Resulting Agency Comment Spec In Lab Ana Maria Zacarias MD HEMATOLOGY ORDERABLE S [facility] [address] [place] [address] * (ABNORMAL) Comprehensive metabolic panel (non-fasting) (04/08/2023 10:57 AM EST) Glucose 126 65 - 199 mg/dL [facility] Comment:Diabetes: >=200 mg/d L plus symptoms Blood Urea Nitrogen 17 8 - 18 mg/dL [facility] Creatinine 0.68(L) 0.70 - 1.20 mg/dL [facility] Sodium 138 135 - 145 mmol/L [facility] Potassium 3.8 3.5 - 5.0 mmol/L [facility] Comment: Please note: ??Patients with WBC >100,000 may have falsely elevated Potassium levels. ??For accurate Potassium quantification in these patients send serum separator tube (gold top) for subsequent determinations. ??Contact the Clinical Chemistry Laboratory if there are any questions. Chloride 103 98 - 107 mmol/L [facility] Carbon Dioxide 23 22 - 31 mmol/L [facility] Anion Gap 12 5 - 15 mmol/L [facility] Calcium 9.0 8.5 - 10.5 mg/dL [facility] Protein, Total 6.8 6.1 - 8.0 g/dL [facility] Albumin 4.1 3.2 - 5.2 g/dL [facility] Aspartate Aminotransferase 20 0 - 30 unit/L [facility] Alanine Aminotransferase 24 0 - 30 unit/L [facility] Alkaline Phosphatase 137(H) 35 - 105 unit/L [facility] Bilirubin, Total 0.2 0.2 - 1.3 mg/dL [facility] Est Glomerular Filtration Rate 102 >=60 mL/min/1. 73 m?? [facility] Comment: This patient's estimated GFR was [...] and symptoms in addition to eGFR. Blood 04/08/2023 10:5 7 AM EST 04/08/2023 11:02 AM EST Narrative Resulting Agency Comment Spec In Lab Ana Maria Zacarias MD CHEMISTRY ORDERABLES Performing Organization Address [facility] Co de Phone Number [facility] [place] [address] * Prothrombin Time (04/08/2023 10:57 AM EST) Prothrombin Time 11.0 9.4 - 12.5 sec [facility] International Normalization Ratio 1.0 [facility] Comment: An INR <2.0 indicates adequate procoagulant activity for hemostasis in most patients without underlying bleeding disorders, though the INR may not adequately reflect hemostatic capacity in patients with liver disease and synthetic impairment. The recommended target INR range for therapeutic anticoagulation is 2.0 ? 3.0 for most applications, though lower and higher ranges may be appropriate depending on clinical circumstances. Blood 04/08/2023 10:5 7 AM EST 04/08/2023 11:02 AM EST Narrative Resulting Agency Comment Spec In Lab Ana Maria Zacarias MD HEMATOLOGY ORDERABLE S Performing Organization Address [facility] Co de Phone Number [facility] [place] [address] * Hepatitis A Antibody, Total (04/08/2023 10:57 AM EST) Hepatitis A ANTIBODY, TOTAL Negative Negative [facility] Blood 04/08/2023 10:5 7 AM EST 04/08/2023 11:02 AM EST Narrative Resulting Agency Comment Spec In Lab Ana Maria Zacarias MD CHEMISTRY ORDERABLES Performing Organization Address [facility] Co de Phone Number [facility] [place] [address] * Hepatitis B Surface Antibody (04/08/2023 10:57 AM EST) Hepatitis B Surface Antibody, Quantitative 43.0 IU/L [facility] Comment: HepB Surface Ab Quant: Unvaccinated: < 8.5 IU/L Vaccinated: >= 11.5 IU/L Hepatitis B Surface Antibody Positive [facility] Comment: Patient is considered to be immune to HBV infection. Expected Results: Vaccinated: Positive Unvaccinated: Negative Blood 04/08/2023 10:5 7 AM EST 04/08/2023 11:02 AM EST Narrative Resulting Agency Comment Spec In Lab Ana Maria Zacarias MD CHEMISTRY ORDERABLES Performing Organization Address City/[facility] Co de Phone Number [facility] [place] [address] * Hepatitis B Surface Antigen (04/08/2023 10:57 AM EST) Hepatitis B Surface Antigen Negative Negative [facility] Blood 04/08/2023 10:5 7 AM EST 04/08/2023 11:02 AM EST Narrative Resulting Agency Comment Spec In Lab Ana Maria Zacarias MD CHEMISTRY ORDERABLES Performing Organization Address [facility] Co de Phone Number [facility] [place] [address] * Hepatitis B Core Antibody, Total (04/08/2023 10:57 AM EST) Hepatitis B Core Antibody Negative Negative [facility] Blood 04/08/2023 10:5 7 AM EST 04/08/2023 11:02 AM EST Narrative Resulting Agency Comment Spec In Lab Ana Maria Zacarias MD CHEMISTRY ORDERABLES Performing Organization Address [facility] Co de Phone Number [facility] [place] [address] * Hepatitis C Antibody (04/08/2023 10:57 AM EST) Hepatitis C Antibody Negative Negative [facility] Blood 04/08/2023 10:5 7 AM EST 04/08/2023 11:02 AM EST Narrative Resulting Agency Comment Spec In Lab Ana Maria Zacarias MD CHEMISTRY ORDERABLES Performing Organization Address City/[facility]/ZIP Co de Phone Number [facility] [place] [address] * HIV Screen, 4th Generation ([facility]/CGP/APD/NLH) (04/08/2023 10:57 AM EST) Pathologist [facility] HIV Ab/Ag Screen Negative Negative [facility] Comment: This 4th Generation HIV test [...] HIV Comment Low Risk of HIV Infection [facility] Blood 04/08/2023 10:5 7 AM EST 04/08/2023 11:02 AM EST Narrative Resulting Agency Comment Spec In Lab Ana Maria Zacarias MD CHEMISTRY ORDERABLES Performing Organization Address City/[facility] Co de Phone Number [facility] [place] [address] * (ABNORMAL) Chromogranin A (04/08/2023 10:57 AM EST) Pathologist [facility] Chromogranin A (SEPTEMBER) 575(H) <93 ng/mL [facility] Comment: Impaired renal or hepatic function or treatment with proton pump inhibitors may result in artifactual elevations of Chromogranin A. ADDITIONAL INFORMATION This test was developed and its performance characteristics determined by [facility] in a manner consistent with CLIA requirements. This test has not been cleared or approved by the U.S. Food and Drug Administration. In some immunoassays, the presence of unusually high concentrations of analyte may result in a high-dose hook effect. This may result in a lower or even normal measured analyte concentration. If the reported result is inconsistent with the clinical presentation, the laboratory should be alerted for troubleshooting. For diagnostic purposes, these immunoassay results should always be assessed in conjunction with the patients medical history, clinical examination and other findings. The testing method is a homogeneous time-resolved immunofluorescent assay manufactured by [employer] and performed on the [employer] Kryptor Compact Plus. Values obtained with different assay methods or kits may be different and cannot be used interchangeably. Test results cannot be interpreted as absolute evidence for the presence or absence of malignant disease. Test Performed by: [facility] [employer] - [place] [address] [employer]: Alexis Potter M.D. Ph.D.; CLIA# [id number] Blood 04/08/2023 10:5 7 AM EST 04/08/2023 1:21 PM EST Narrative Resulting Agency Comment Spec In Lab Ana Maria Zacarias MD LAB SEND OUT ORDERAB LES Performing Organization Address [facility] de Phone Number [facility] [place] [address] * (ABNORMAL) Gastrin (04/08/2023 10:57 AM EST) Gastrin (SEPTEMBER) 215(H) pg/mL [facility] Comment: REFERENCE VALUE <100 Reference ranges valid for >= 8 hour fast. Test Performed by: [facility] [employer] - [address] [address] [employer]: Alexis Potter M.D. Ph.D.; CLIA# [id number] Blood 04/08/2023 10:5 7 AM EST 04/08/2023 1:21 PM EST Narrative Resulting Agency Comment Spec In Lab Ana Maria Zacarias MD LAB SEND OUT ORDERAB LES Performing Organization Address [facility]/State/ZIP Co de Phone Number [facility] [place] [address] * TSH (04/08/2023 10:57 AM EST) Thyroid Stimulating Hormone 1.49 0.27 - 4.20 mcIU/mL [facility] Comment: Reference Interval (mcIU/mL): Females: ??First Trimester: 0.23-3.88 ??Second Trimester: 0.22-3.90 ??Third Trimester: 0.44-4.66 Blood 04/08/2023 10:5 7 AM EST 04/08/2023 11:02 AM EST Narrative Resulting Agency Comment Spec In Lab Ana Maria Zacarias MD CHEMISTRY ORDERABLES [facility] [place] [address] documented in this encounter Visit Diagnoses Diagnosis Diarrhea, unspecified type Elevated liver enzymes Nonspecific elevation of levels of transaminase or lactic acid dehydrogenase (LDH) documented in this encounter Care Teams Signs Cleaner Relationship Specialty Start Date End Date Moise Lala MD PCP - General Family Medicine 06/26/17 02/15/24 documented as of this encounter
--- OUTSIDE RECORDS SUMMARY | 2024-05-26 13:19 | XMS_ITS | Encounter Summary ---
Author Organization [facility] [place] [address] Care Team Providers Care Dictating Machine Transcriber Name Role Phone Moise Lala MD Primary Care Provider [phone] Encounter Details Date Type Department Care Team (Late st Contact Info) Description 11/12/2021 Orders [place] [address] Thomas Hawthorne MD [facility] [place] [address] Social History Tobacco Use Types Packs/Day Years [...] on filedocumented in this encounter Care Teams Dictating Machine Transcriber Relationship Specialty Start Date End Date Moise Lala MD PCP - General Family Medicine 06/26/17 02/15/24 documented as of this encounter
--- OUTSIDE RECORDS SUMMARY | 2024-05-26 13:19 | XMS_ITS | Encounter Summary ---
[place] [address] Care Team Providers Care Kiss Mixer Name Role Phone Moise Lala MD Primary Care Provider [phone] Reason for Visit * Auth/Cert Specialty Diagnoses / Procedures Referred By Gael t Referred To Contact Diagnoses Morbid (severe) obesity due to excess calories Nicotine dependence, unspecified, uncomplicated Abnormal uterine bleeding (AUB) perimenopausal AUB Procedures PRO LAPAROSCOPY W TOT HYSTERECT UTERUS 250 GRAM OR LESS LAPAROSCOPY, HYSTERECTOMY, UTERUS<250GMS (WRVU 13.36) Referral ID Status Reason Start Date Expiration Date Visits Re quested Visits Authorized [id number] 1 1 Encounter Details Date Type Department Care Team (Late st Contact Info) Description 08/19/2017 7:29 AM EDT Anesthesia Event [place] [address] Cathleen Knott MD Cotoi, Daniel, MD Anesthesia Record Procedure Summary Procedure Name Responsible Anesthesiologist Anesthesia Start Time Anesthesia Stop Time LAPAROSCOPY, TOTAL HYST, UTERUS<250GMS, REM TUBE &/OR OVARY (WRVU 15) (Pelvis) Cathleen Knott MD 08/19/17 0729 08/19/17 1034 Events Date Time Event Comment 08/19/2017 0700 0729 AN Verify 0729 Start 0729 An Start Data 0736 An Induction 0738 An Intubation 0743 Anesthesia Ready 0807 Quick Note Positioned in s teep trendelenberg 0910 Break/Relief In Cathleen A Charli rhodes MD 0945 Break/Relief Out 1027 Extubation/LMA Out 1028 an stop data 1033 Recovery or ICU Handoff Marlen ent care was transferred to the destination unit staff after review of the patient's medical history, current anesthetic/surgical status and plan, according to the Provider Handoff Checklist. 1034 Stop Meds Name Total Midazolam 2 mg fentaNYL 100 mcg IV Lidocaine 100 mg Propofol 200 mg Rocuronium 80 mg Ondansetron 4 mg Dexamethasone 8 mg ceFAZolin (ANCEF) 2g in dextrose 5% 100 mL 2 g Lidocaine 4% LTA 4 mL Propofol INF 765.81 mg Labetalol 10 mg Ketorolac 15 mg lactated Ringers infusion 1,000 mL 900 m L * Agents Name O2 Air N2O Sevoflurane (et) * Blood No blood administrations on file. Lines, Drains, and Airways Type Details Placement Removal (RETIRED) Peripheral IV Line - Single Lumen 08/19/17; 0643; [id number] catheter system; 20 gauge; Kalee Mason RN; distraction, intradermal injection, tolerated well, appears comfortable, age-appropriate response; Location1: (select this item first), metacarpal vein (top of hand), left; 08/20/17; 0859 08/19/17 0643 by Kalee Mason RN 08/20/17 0859 by Shantell Jimenez ETT Mask Ventilation: Adjunct (2); ETT Type: Cuffed, Oral; Thorpe Blade: 2; Notes: Asleep, Pre-O2, Stylette; Attempts: 1; Laryngoscopy Grade: 1; ETT Placement Verified By: Auscultation, Capnometry, Visual; Secured at Teeth: 21 cm; Inserted by: JAMIE Qureshi; Removal Date: 08/19/17; Removal Time: 1027 08/19/17 0738 by Shobha Qureshi CRNA 08/19/17 1027 by Zhao Ayala CRNA Urethral Catheter 08/19/17; 0801; Physician order, Abdominal surgery; Physician order; indwelling double lumen catheter; 100% silicone; 14; inserted at this facility; 1; 5; 10; none; drainage bag to dependent drainage; 08/19/17; 1654 08/19/17 0801 by Chadwick Perez RN 08/19/17 1654 by Nadia Schofield RN Incision 08/19/17; 0801; abdo men; laparoscopic punctures (specify); three trocar sites; 01/14/22 (LDA cleanup utility RA#[id number]); 1715 (LDA cleanup utility RA#[id number]) 08/19/17 0801 by Chadwick Perez RN 01/14/22 1715 by Saba Herring documented in this encounter Social History Tobacco [...] OR Notes * Anesthesia Postprocedure Evaluation - Cathleen Knott MD - 08/19/2017 11:09 AM EDT [facility] [place] Post-procedure Note Patient: Nikia Denton Procedure Summary Date Anesthesia Start Anesthesia Stop Room / Location 08/19/17 0729 1034 [facility] OR 24 / [facility] MAIN OR Procedure Diagnosis Surgeon Responsible Provider LAPAROSCOPY, TOTAL HYST, UTERUS<250GMS, REM TUBE &/OR OVARY (WRVU 15) (N/A Pelvis); CYSTO, CYSTOURETHROSCOPY, DIAGNOSTIC (WRVU 2.23) (N/A Bladder) Morbid obesity; Tobacco use disorder; Essential hypertension; BERTA (obstructive sleep apnea); Abnormal uterine bleeding (perimenopausal AUB) Kody Toth MD Foreman, Lily A, MD All Anesthesia Providers: Anesthesiologist: Cathleen Knott MD DENITRATOR OPERATOR: Zhao Ayala CRNA; Shobha Qureshi CRNA Most Recent Vitals: 08/19/17 1100 BP: 134/79 Pulse: 67 Resp: 8 Temp: SpO2: 99% Pain 0 (08/19/17 1029) Patient Location: PACU/[facility] Level of Consciousness: Awake and Alert Pain Management: Pain Being Addressed PONV: None Cardiovascular Status: At Baseline Respiratory Status: At Baseline Postoperative Fluid Status: Intravascular EUvolemia Possible Anesthetic Complications: NONE apparent at time of evaluation Final Primary Anesthesia Type: General (The anesthetic type performed was the same as planned.) Comments: * Anesthesia Preprocedure Evaluation - Cathleen Kntot MD - 08/08/2017 5:15 PM EDT Pre-Anesthesia Evaluation for: Nikia Denton a 51 y.o. female. Procedure(s): LAPAROSCOPY, HYSTERECTOMY, UTERUS<250GMS (WRVU 13.36) Patient Active Problem List Diagnosis ??? Hypertension ??? Fibromyalgia ??? Tobacco use disorder ??? Gastroesophageal reflux ??? Chronic anxiety with deprressed mood ??? Obstructive sleep apnea ??? Eczema ??? Hyperlipidemia ??? Alopecia ??? Glucose intolerance (impaired glucose tolerance) ??? Morbid obesity ??? Abnormal uterine bleeding No past medical history on file. No past surgical history on file. Social History Substance Use Topics ??? Smoking status: Current Every Day Smoker Packs/day: 0.50 Types: Cigarettes ??? Smokeless tobacco: Never Used ??? Alcohol use Not on file History Drug Use Not on file Allergies Allergen Reactions ??? Latex Rash ??? Other [Unclassified Drug] Rash Strawberries ??? Pcn [Penicillins] Causes multiple infections Medications: MAR and/or home medications have been reviewed. Physical Exam: There were no vitals filed for this visit. There is no height or weight on file to calculate BMI. Airway Assessment: Mallampati: II TM distance: >3 FB Neck ROM: full Cardiovascular Assessment: Rhythm: regular Pulmonary Assessment: breath sounds clear to auscultation Dental Assessment: - normal exam Misc Assessment: IV access: Peripheral line Anesthesia Plan: ASA 2 general, with a(n) intravenous induction 51 yo F scheduled for laparoscopic hysterectomy in August due to abnormal uterine bleeding. Smoker, obese, sleep apnea compliant with CPAP ([id number]). 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 Consent signed in PAT. Questions sought and answered. Region - Other Informed Consent: Anesthetic plan and risks discussed with patient. Use of blood products discussed with patient who. Plan discussed with DENITRATOR OPERATOR. PAT Staff Note documented in this encounter Plan of Treatment Not on file documented as of this encounter Visit Diagnoses Not on filedocumented in this encounter Administered Medications Inactive Administered Medications - up to 3 most recent administrations Medication Order MAR Action Action Date Dose Rate Site ceFAZolin (ANCEF) 2g in dextrose 5% 100 mL 2 g, Intravenous, ONCE, 1 dose, On Fri08/19/17 at 0645, Administer over 30 Minutes, Redose every 3 hours if CrCl is greater than 20. Redose every 8 hours if CrCl is less than 20., Day of Surgery (Day of Procedure), Indication for (Active or Suspected): Prophylaxis Given 08/19/2017 7:49 AM EDT 2 g dexamethasone (DECADRON) injection PRN, Starting on Fri08/19/17 at 0749, Until Fri08/19/17 at 1034, Anesthesia Intra-op, Routine Given 08/19/2017 7:49 AM EDT 8 mg fentaNYL 50 mcg/mL multi-dose injection PRN, Starting on Fri08/19/17 at 0733, Until Fri08/19/17 at 1034, Pain, Anesthesia Intra-op, Routine Given 08/19/2017 9:25 AM EDT 50 mcg Given 08/19/2017 7:33 AM EDT 50 mcg ketorolac (TORADOL) injection PRN, Starting on Fri08/19/17 at 1006, Until Fri08/19/17 at 1034, Pain, Anesthesia Intra-op, Routine Given 08/19/2017 10:06 AM EDT 15 mg labetalol (NORMODYNE,TRANDATE) multi-dose injection PRN, Starting on Fri08/19/17 at 0812, Until Fri08/19/17 at 1034, High Blood Pressure, Anesthesia Intra-op, Routine Given 08/19/2017 8:12 AM EDT 10 mg lactated Ringers infusion 1,000 mL 1,000 mL, at 100 mL/hr, Intravenous, CONTINUOUS, Starting on Fri08/19/17 at 0645, Until Fri08/19/17 at 1100, Day of Surgery (Day of Procedure) New Bag 08/19/2017 7:29 AM EDT New Bag 08/19/2017 6:45 AM EDT 1,000 mLs 100 mL/hr lidocaine (PF) (XYLOCAINE) 100 mg/5 mL (2 %) injection PRN, Starting on Fri08/19/17 at 0736, Until Fri08/19/17 at 1034, Anesthesia Intra-op, Routine Given 08/19/2017 7:36 AM EDT 100 mg lidocaine (XYLOCAINE) 4 % external solution PRN, Starting on Fri08/19/17 at 0738, Until Fri08/19/17 at 1034, Anesthesia Intra-op Given 08/19/2017 7:38 AM EDT 4 mLs midazolam (PF) (VERSED) 1 mg/mL multi-dose injection PRN, Starting on Fri08/19/17 at 0729, Until Fri08/19/17 at 1034, Sleep, Anesthesia Intra-op, Routine Given 08/19/2017 7:29 AM EDT 2 mg ondansetron (ZOFRAN) injection PRN, Starting on Fri08/19/17 at 1010, Until Fri08/19/17 at 1034, Nausea, Anesthesia Intra-op, Routine Given 08/19/2017 10:10 AM EDT 4 mg propofol (DIPRIVAN) 10 mg/mL bolus injection (Anesthesia) PRN, Starting on Fri08/19/17 at 0736, Until Fri08/19/17 at 1034, Anesthesia Intra-op Given 08/19/2017 7:36 AM EDT 200 mg propofol (DIPRIVAN) infusion CONTINUOUS PRN, Starting on Fri08/19/17 at 0751, Until Fri08/19/17 at 1034, Anesthesia Intra-op, Routine New Bag 08/19/2017 7:51 AM EDT 50 mcg/kg/min 34.3 mL/hr rocuronium (ZEMURON) multi-dose injection PRN, Starting on Fri08/19/17 at 0736, Until Fri08/19/17 at 1034, Anesthesia Intra-op, Routine Given 08/19/2017 9:44 AM EDT 10 mg Given 08/19/2017 9:12 AM EDT 10 mg Given 08/19/2017 7:36 AM EDT 60 mg documented in this encounter Care Teams Kiss Mixer Relationship Specialty Start Date End Date Moise Lala MD PCP - General Family Medicine 06/26/17 02/15/24 documented as of this encounter
--- OUTSIDE RECORDS SUMMARY | 2024-05-26 13:19 | XMS_ITS | Encounter Summary ---
[place] [address] Care Team Providers Care Informal Waiter/Waitress Name Role Phone Moise Lala MD Primary Care Provider [phone] Reason for Visit * Reason Comments Follow-up 08/19/17-hyst-5 week f ollow up Encounter Details Date Type Department Care Team (Late st Contact Info) Description 09/22/2017 10:45 AM EDT Office Visit Obstetrics [place] [id number] Kody Toth MD Postop check Social History Tobacco Use Types Packs/Day Years [...] Sign Reading Time Taken Comments Blood Pressure 116/75 09/22/2017 11:24 AM EDT Pulse 84 09/22/2017 11:24 AM EDT Temperature 36.6 ??C (97.9 ??F) 09/22/2017 11:24 AM E DT Respiratory Rate - - Oxygen Saturation 98% 09/22/2017 11:24 AM EDT Inhaled Oxygen Concentration - - Weight 113.9 kg (251 lb) 09/22/2017 11:24 AM EDT Height - - Body Mass Index 40.51 08/19/2017 6:17 AM EDT documented in this encounter Progress Notes * Kody Toth MD - 09/22/2017 10:45 AM EDT S: Nikai presents for a 5 week postop visit after TLH on 08/19/17. Her biggest concern is occasional episodes of hives over the past 1-2 weeks that have broken out on her lower extremities, trunk,buttock and face with no inciting factors that she can think of. She reports no vaginal bleeding or discharge. She has some pressure-like discomfort after being on her feet for a long time but no pain per se. Bowel and bladder function are normal. O: BP 116/75 (BP Location (NBP): Right arm, Patient Position: Sitting, BP Cuff Sizes: Large Adult (32-43 cm)) Pulse 84 Temp 36.6 ??C (97.9 ??F) (Oral) Wt 113.9 kg (251 lb) LMP 02/28/2017 (Approximate) SpO2 98% BMI 40.51 kg/m2 She is well appearing Abdomen is soft, nondistended, nontender. LLQ port site with resolving erythema following suture granuloma. RLQ and umbilical sites well approximated, non-erythematous : NEFG. Vaginal vault is well supported with scant pinkish discharge at visually intact nonerythematous cuff. BME confirms cuff integrity, mildly appropriately tender. Surgical Pathology DIAGNOSIS Uterus, cervix and bilateral fallopian tubes, hysterectomy and bilateral ??salpingectomy: - Benign cervix. - Secretory endometrium. - Adenomyosis. - Leiomyomas. - Benign fallopian tubes with paratubal cysts. A/P: 5 weeks s/p TLH/BS doing quite well. Etiology of hives unclear- recommended prn use of nonsedating antihistamine, follow up with PCP if persistent. Discussed current recommendations for biennialsurveillance pelvic exam, no future need for vaginal screening cytology. Follow-up prn. documented in this encounter Plan of Treatment Not on file documented as of this encounter Visit Diagnoses Diagnosis Postop check Follow-up examination, following unspecified surgery documented in this encounter Care Teams Informal Waiter/Waitress Relationship Specialty Start Date End Date Moise Lala MD PCP - General Family Medicine 06/26/17 02/15/24 documented as of this encounter
--- OUTSIDE RECORDS SUMMARY | 2024-05-26 13:19 | XMS_ITS | Encounter Summary ---
[place] [address] Care Team Providers Care Occ Med Physician Name Role Phone Moise Lala MD Primary Care Provider [phone] Reason for Referral * Surgical (Urgent) - Closed Specialty Diagnoses / Procedures Referred By Contac t Referred To Contact Gastroenterology Diagnoses Calculus of common duct Calculus of common duct Procedures EUS and possible ERCP (pending EUS findings) within 2 weeks for possible retained gallstones suggested on outside MRI imaging in setting of abdo pain; post CCY. Moise Lala MD [address] [place] [address] [place] [address] [facility] [address] [place] [address] Referral ID Status Reason Start Date Expiration Date V isits Requested Visits Authorized [id number] Closed Consult, Test & Treat PCP Updated and/or Approved 10/23/2021 10/23/2022 6 6 Encounter Details Date Type Department Care Team (Late st Contact Info) Description 10/23/2021 Transcribe Orders eDH Incoming Referrals [phone] Moise Lala MD [address] [place] [address] [place] [address] Calculus of common duct Social History Tobacco Use Types Packs/Day Years [...] of this encounter Plan of Treatment Scheduled Referrals Name Type Priority Associated Diagnoses Order Schedule Referral to Gastroenterology Outpatient Referral Routine Calculus of common duct Ordered: 10/23/2021 documented as of this encounter Visit Diagnoses Diagnosis Calculus of common duct Calculus of bile duct without mention of cholecystitis or obstruction documented in this encounter Care Teams Occ Med Physician Relationship Specialty Start Date End Date Moise Lala MD PCP - General Family Medicine 06/26/17 02/15/24 documented as of this encounter
--- OUTSIDE RECORDS SUMMARY | 2024-05-26 13:19 | XMS_ITS | Encounter Summary ---
[place] [address] Care Team Providers Care Heat Set Operator Name Role Phone Moise Lala MD Primary Care Provider [phone] Reason for Referral * Consultation (Routine) - Closed Specialty Diagnoses / Procedures Referred By Contac t Referred To Contact Weight and Wellness Diagnoses Class 2 severe obesity due to excess calories with serious comorbidity and body mass index (BMI) of 37.0 to 37.9 in adult Ana Maria Zacarias MD [facility] [place] [address] [facility] [place] [address] Referral ID Status Reason Start Date Expiration Date V isits Requested Visits Authorized [id number] Closed Consult, Test & Treat 04/08/2023 04/07/2024 1 1 * Consultation (Routine) - Closed Specialty Diagnoses / Procedures Referred By Contluda t Referred To Contact Gastroenterology Diagnoses Diarrhea, unspecified type Ana Maria Zacarias MD [facility] [place] [address] Franchesca Flores, PhD [facility] [place] [address] Referral ID Status Reason Start Date Expiration Date V isits Requested Visits Authorized [id number] Closed Consult, Test & Treat 04/08/2023 04/07/2024 1 1 Reason for Visit * Consultation (Routine) - Closed Specialty Diagnoses / Procedures Referred By Gael ritter Referred To Contact Gastroenterology Diagnoses Enlarged liver Fatty liver RUQ pain Diarrhea, unspecified type fatty liver/ ruq pain/diarrhea Yasmeen Lala, SKIRT PANEL ASSEMBLER [address] [place] [address] [facility] [address] [place] [address] Referral ID Status Reason Start Date Expiration Date V isits Requested Visits Authorized [id number] Closed Consult, Test & Treat PCP Updated and/or Approved 01/15/2023 01/15/2024 12 12 Encounter Details Date Type Department Care Team (Late st Contact Info) Description 04/08/2023 9:30 AM EST Office Visit Gastroenterology at [place] [phone] Ana Maria Zacarias MD [facility] [place] [address] Insomnia; Elevated liver enzymes; Diarrhea, unspecified type; Class 2 severe obesity due to excess calories with serious comorbidity and body mass index (BMI) of 37.0 to 37.9 in adult Social History Tobacco Use Types Packs/Day Years [...] Sign Reading Time Taken Comments Blood Pressure 126/72 04/08/2023 9:17 AM EST Pulse 86 04/08/2023 9:17 AM EST Temperature - - Respiratory Rate - - Oxygen Saturation - - Inhaled Oxygen Concentration - - Weight 104.3 kg (229 lb 14.4 oz) 04/08/2023 9:17 AM EST Height 167.6 cm (5' 6) 04/08/2023 9:17 AM EST Body Mass Index 37.11 04/08/2023 9:17 AM EST documented in this encounter Progress Notes * Ana Maria Zacarias MD - 04/08/2023 9:30 AM EST Images from the original note were not included. HEPATOLOGY CONSULTATION Nikia Denton 1965 APPROVER: Ana Maria Zacarias MD ([id number]) PCP: Moise Lala MD Requesting Provider: Yasmeen Lala, SKIRT PANEL ASSEMBLER [address] [place] [address] REASON FOR CONSULTATION MASLD HISTORY OF PRESENT ILLNESS Nikia Denton is a 57 y.o. year old history of diabetes, hypertension, and hyperlipidemia. She reports having diarrhea since her cholecystectomy and ERCP 2 years intermittently. She reports diarrhea occurs a few times per weeks, 5-7 BM, Kirkland type 7, without blood, bright yellow. She reports having Kirkland type 6, with 2 BM per day. She reports having constipation prior to cholecystectomy. She reports episodes of fecal incontinence and urgency. She reports having a colonoscopy in 03/2020 with one low risk TA. Colonoscopy in 03/2022 with normal non-targeted colon biopsies. EGD in 12/2021 with normal gastric and duodenal biopsies. She reports be given a power which did not help, shereports trying daily for 1 month. She has been using loperamide 2mg PRN. She has not tried loperamide scheduled. She has been trying to avoid fatty foods and increasing fiber. She reports using ibuprofen daily, has tried stopping for a month without improvement in her GI symptoms. She tried holdingmetformin for 6 weeks without improvement. She has been on Jardiance for a few months. She was started on sertraline 1 year ago. Celiac serology in 09/2022. She reports RUQ pain which she reports is similar to gallbladder pain. She reports feeling a pressure that radiates to the shoulder and back. She reports it will hurt to take a deep breath. She reports the pain occurs for hours and happens 3x per week. No aggravating or relieving factors. She reports weight with increase and decrease by 20 lbs in a week. She also has bloating when the pain occurs. . She no alcohol use. She has MASH risk factors (obesity, DM, HTN, and HLD). No jaundice, GI bleeding, or ascites. She reports having fuzzy brain since COVID two years. She reports not being able to breath right and has a reduced EF since her COVID diagnosis. She also noted more depression. She has professional tattoos, last one 10 years ago. No other risk factors for viral hepatitis. U/S 11/2022: hepatic steatosis Lab 11/2022: Plt 265 FIB-4 0.69 ROS: As per HPI, otherwise negative PAST MEDICAL/SURGICAL HISTORY Patient Active Problem List Diagnosis Code Hypertension I10 Fibromyalgia M79.7 Smokes 1/2 pack a day or less F17.210 Gastroesophageal reflux K21.9 Chronic anxiety with deprressed mood F41.9 BERTA on CPAP G47.33 Eczema L30.9 Hyperlipidemia E78.5 Alopecia L65.9 Glucose intolerance (impaired glucose tolerance) R73.02 Morbid obesity with BMI of 40.0-44.9, adult E66.01, Z68.41 LBBB (left bundle branch block) I44.7 Urinary frequency R35.0 MEDICATIONS Outpatient Medications Marked as Taking for the 04/08/23 encounter (Office Visit) with Ana Maria Zacarias MD Medication Sig Dispense Refill Jardiance 10 mg tablet Take 10 mg by mouth daily. pantoprazole EC (Protonix) [address] tablet Take 40 mg by mouth daily. pregabalin (Lyrica) 150 mg capsule Take 150 mg by mouth 2 times daily. losartan (Cozaar) 25 mg Tablet sertraline (ZOLOFT) 100 mg Tablet zolpidem (Ambien) 5 mg Tablet [DISCONTINUED] cholestyramine light 4 gram Powder in Packet [DISCONTINUED] Trulicity 1.5 mg/0.5 mL Pen Injector acetaminophen (TYLENOL) 325 mg Tablet Take 2 tablets by mouth every 6 hours as needed for Pain. 30 tablet PRN ibuprofen (ADVIL;MOTRIN) 600 mg Tablet Take 1 tablet by mouth every 6 hours as needed for Pain. 50 tablet 0 [DISCONTINUED] nicotine (NICODERM CQ) 21 mg/24 [address] 1 patch onto the skin daily. 28patch 3 tiZANidine (ZANAFLEX) 2 mg Tablet triamcinolone (KENALOG) 0.1 % Cream apply to ECZEMA ON HANDS twice a day 0 [DISCONTINUED] buPROPion (WELLBUTRIN XL) 150 mg Tablet Extended Release 24 hr 0 amLODIPine (NORVASC) 5 mg Tablet take [...] 5 mg Capsule Take by mouth daily. [DISCONTINUED] omeprazole (PRILOSEC) 40 mg Capsule, Delayed Release(E.C.) Take 40 mg by mouth 2 times daily. 1 traZODone (DESYREL) 50 mg tablet Take by mouth. 1-2 tablets at HS (Patient taking differently: [id number] mg by mouth nightly.) 90 tablet 0 ALLERGIES Allergies Allergen Reactions Latex Rash Other [Unclassified Drug] Rash Strawberries Pcn [Penicillins] Causes multiple infections SOCIAL HISTORY Social History Socioeconomic History Marital status: Spouse name: Not on file Number of children: Not on file Years of education: Not on file Highest education level: Not on file Occupational History Not on file Tobacco Use Smoking status: Every Day Packs/day: .25 Types: Cigarettes Smokeless tobacco: Never Substance and Sexual Activity Alcohol use: No Drug use: Yes Frequency: 1.0 times per week Types: Marijuana, Benzodiazapines Comment: occasional Sexual activity: Not on file Other Topics Concern Not on file Social History Narrative Not on file Social Determinants of Health Financial Resource Strain: Not on file Food Insecurity: Not on file Transportation Needs: Not on file Physical Activity: Not on file Intimate Partner Violence: Not on file Housing Stability: Not on file FAMILY HISTORY There is no family history of inflammatory bowel disease, celiac disease, or colorectal cancer. There is no history of liver disease. Vitals: 04/08/23 0917 BP: 126/72 BP Location (NBP): Right arm Patient Position: Sitting BP Cuff Sizes: Adult (25-34 cm) Pulse: 86 Weight: 104.3 kg (229 lb 14.4 oz) Height: 167.6 cm (5' 6) PHYSICAL EXAM General: Appears stated age, NAD Eyes: Normal sclera, normal conjunctiva ENT: Moist mucus membranes, normal posterior pharynx Lymph: No lymphadenopathy of the head or neck Heart: Heart sounds I and II were audible, no added sounds, no murmurs Lungs: Clear to ausculation bilaterally Abdomen: Soft, non-tender, no organomegaly, normal active bowel sounds Extremities: No peripheral edema Skin: No jaundice, no spider nevi, no palmar erythema Neuro: No asterixis, grossly intact Mental: Appropriate affect, oriented in person, place, and time RESULTS No visits with results within 3 Month(s) from this visit. Latest known visit with results is: Admission on 11/07/2021, Discharged on 11/07/2021 Component Date Value Ref Range Status UPPER ENDOSCOPIC ULTRASOUND 11/07/2021 Final Value:[facility] Endoscopy Procedure Date: 11/07/2021 8:19 AM Patient Name: Nikia Denton Date of : 1965 Age: 55 Order #: [id number] Instrument Name: [id number] Procedure: Upper EUS Indications: Choledocholithiasis on MRCP, Suspected choledocholithiasis Providers: Guillermo Omer MD, Clau Livingston RN, Buster Staton Referring MD: Moise Lala Medicines: Propofol per Anesthesia Complications: No immediate complications. Procedure: Pre-Anesthesia Assessment: - Prior to the procedure, a History and Physical was performed, and patient medications, allergies and sensitivities were reviewed. The patient's tolerance of previous anesthesia was reviewed. - The risks and benefits of the procedure and the sedation options and risks were discussed with the patient. All questions were answered and informed consent was obtained. - ASA Grade Assessment: II - A patient with mild systemic disease. - Using IV propofol under the supervision of an anesthesiologist was determined to be medically necessary for this procedure based on complex procedure (ERCP, EUS). The procedure, indications, benefits, risks and alternatives were explained to the patient. Specifically discussed were potential complications including, but not limited to, bleeding, perforation, infection, missing a cancer, and adverse medication reactions.The ULTRASOUND SCOPE was introduced through the mouth, and advanced to the second part of duodenum. The patient tolerated the procedure well. Findings: ENDOSCOPIC FINDING: : The examined esophagus was endoscopically normal. The entire examined stomach was endoscopically normal. The examined duodenum was endoscopically normal. ENDOSONOGRAPHIC FINDING: : The esophagus, stomach and duodenum were visualized endosonographically and were unremarkable. One stone was visualized endosonographically in the distal common bile duct. The stone measured 5 mm in greatest dimension. It was hyperechoic and characterized by shadowing. There was mild dilation of CHD (10 mm) with normal tapering of mid-distal CBD. The gallbladder is surgically absent. There was no sign of significant endosonographic abnormality in the entire pancreas. The visualized portions of the liver were diffusely echogenic (limited exam). There were no masses or ductal dilation. No lymphadenopathy seen. Moderate Sedation: Not applicable - See Anesthesia documentation Impression: - Choledocholithiasis. - Fatty liver. Recommendation: - Perform an ERCP today. Attending Participation: I personally performed the entire procedure. Guillermo mOer MD 11/07/2021 10:07:21 AM This report has been signed electronically. Number of Addenda: 0 Note Initiated On: 11/07/2021 8:19 AM ERCP 11/07/2021 Final Value:[facility] Endoscopy Procedure Date: 11/07/2021 8:06 AM Patient Name: Nikia Denton Date of : 1965 Age: 55 Order #: [id number] Instrument Name: [id number] Procedure: ERCP Indications: Abnormal MRCP, Abnormal endoscopic ultrasound of the biliary system, Evaluation and possible treatment of bile duct stone(s) Providers: Guillermo Omer MD, Clau Livingston RN, Buster Staton Referring MD: Moise Lala Medicines: General Anesthesia, Indomethacin 100 mg PA Complications: No immediate complications. Procedure: Pre-Anesthesia Assessment: - Prior to the procedure, a History and Physical was performed, and patient medications, allergies and sensitivities were reviewed. The patient's tolerance of previous anesthesia was reviewed. - The risks and benefits of the procedure and the sedation options and risks were discussed with the patient. All questions were answered and informed consent was obtained. - ASA Grade Assessment: II - A patient with mild systemic disease. - General anesthesia under the supervision of an anesthesiologist was determined to be medically necessary for this procedure based on complex procedure (ERCP, EUS). The procedure, indications, benefits, risks and alternatives were explained to the patient. Specifically discussed were potential complications including, but not limited to, bleeding, perforation, infection, pancreatitis, missing a cancer, and adverse medication reactions.The Duodenoscope was introduced through the mouth, and advanced to the duodenum where it was used t o inject contrast into and used to inject contrast into the bile duct and ventral pancreatic duct. The patient tolerated the procedure well. Findings: A corporate sales representative film of the abdomen was obtained. Surgical clips, consistent with a previous cholecystectomy, were seen in the area of the right upper quadrant of the abdomen. The esophagus was successfully intubated under direct vision. The scope was advanced to a normal major papilla in the descending duodenum without detailed examination of the pharynx, larynx and associated structures, and upper GI tract. The upper GI tract was grossly normal. The ampulla was small and located behind a fold and was initially difficult to find. The bile duct was deeply cannulated with the shor t-nosed traction sphincterotome and guidewire. Contrast was injected. I personally interpreted the bile duct images. There was brisk flow of contrast through the ducts. Image quality was excellent. Contrast extended to the hepatic ducts. Opacification of the entire biliary tree except for the gallbladder was successful. The maximum diameter of the ducts was 6 mm. The lower third of the main bile duct contained one stone, which was 5 mm in diameter. A 0.025 in Visiglide II wire was passed into the biliary tree. An 8 mm biliary sphincterotomy was made with a monofilament CleverCut [id number] sphincterotome using ERBE electrocautery. The sphincterotomy oozed blood. The biliary tree was swept with an 11.5 mm balloon starting at the bifurcation. One stone was removed. No stones remained. The PD was briefly accessed with the guide wire during initial cannulation attempts but no contrast was injected. Moderate Sedation: Not applicable - See Anesthesia documentation Impression: - Choledocholithiasis was found. Complete removal was accomplished by biliary sphincterotomy and balloon extraction. Recommendation: - Observe patient's clinical course. Attending Participation: I personally performed the entire procedure. Guillermo Omer MD 11/07/2021 10:11:12 AM This report has been signed electronically. Number of Addenda: 0 Note Initiated On: 11/07/2021 8:06 AM ASSESSMENT/PLAN #Elevated liver enzymes, likely MASH Reviewed [facility] risk factors. Referred to weight and wellness. Treatment is weight loss (goal 10% total body weight). Will updated CBC and CMP today. Given ALT of 54 with rule out viral hepatitis. #IBS-D Reviewed prior work up with negative colonoscopy and celiac serologies. Will try rifaximin 550 mg TID. Recommend a dairy free diet. Will obtain TSH, gastrin level, and chromogranin. Placed referral to GI behavioral health. Follow up visit in 3 months. Ana Maria Zacarias MD Hepatology and Gastroenterology [facility] [place] V: [phone] Copy: Moise Lala MD [address] [place] [address] / [facility] [id number] Time spent reviewing records prior to this encounter: 5 minutes Time spent during encounter with patient including counselin minutes Time spent documenting encounter after office visit: 5 minutes Approximate total time devoted to this single encounter on the day of the encounter: 60 minutes documented in this encounter Plan of Treatment Scheduled Referrals Name Type Priority Associated Diagnoses Orde r Schedule Amb Referral to GI Behavioral Health Outpatient Referral Routine Diarrhea, unspecified type Ordered: 04/08/2023 Referral to [facility] Outpatient Referral Routine Class 2 severe obesity due to excess calories with serious comorbidity and body mass index (BMI) of 37.0 to 37.9 in adult Ordered: 04/08/2023 documented as of this encounter Results * TSH (04/08/2023 10:57 AM EST) Thyroid Stimulating Hormone 1.49 0.27 - 4.20 mcIU/mL [facility] Comment: Reference Interval (mcIU/mL): Females: ??First Trimester: 0.23-3.88 ??Second Trimester: 0.22-3.90 ??Third Trimester: 0.44-4.66 Blood 04/08/2023 10:5 7 AM EST 04/08/2023 11:02 AM EST Narrative Resulting Agency Comment Spec In Lab Ana Maria Zacarias MD CHEMISTRY ORDERABLES [facility] [place] [address] * (ABNORMAL) Gastrin (04/08/2023 10:57 AM EST) Gastrin (SEPTEMBER) 215(H) pg/mL [facility] Comment: REFERENCE VALUE <100 Reference ranges valid for >= 8 hour fast. Test Performed by: [facility] [address] [place] [address] Assignment Agent: Alexis Potter M.D. Ph.D.; CLIA# [id number] Blood 04/08/2023 10:5 7 AM EST 04/08/2023 1:21 PM EST Narrative Resulting Agency Comment Spec In Lab Ana Maria Zacarias MD LAB SEND OUT ORDERAB LES [facility] [place] [address] * (ABNORMAL) Chromogranin A (04/08/2023 10:57 AM EST) Chromogranin A (SEPTEMBER) 575(H) <93 ng/mL [facility] Comment: Impaired renal or hepatic function or treatment with proton pump inhibitors may result in artifactual elevations of Chromogranin A. ADDITIONAL INFORMATION This test was developed and its performance characteristics determined by [facility] in a manner consistent with CLIA requirements. [...] a homogeneous time-resolved immunofluorescent assay manufactured by [employer] and performed on the [employer] Kryptor Compact Plus. Values obtained with different assay methods or kits may be different and cannot be used interchangeably. Test results cannot be interpreted as absolute evidence for the presence or absence of malignant disease. Test Performed by: [facility] [address] [place] [address] Assignment Agent: Alexis Potter M.D. Ph.D.; CLIA# [id number] Blood 04/08/2023 10:5 7 AM EST 04/08/2023 1:21 PM EST Narrative Resulting Agency Comment Spec In Lab Ana Maria Zacarias MD LAB SEND OUT ORDERAB LES Performing Organization Address City/[facility]/ZIP Co de Phone Number [facility] [place] [address] * HIV Screen, 4th Generation ([facility]/CGP/APD/NLH) (04/08/2023 10:57 AM EST) HIV Ab/Ag Screen Negative Negative [facility] Comment: This 4th Generation HIV [...] HIV Comment Low Risk of HIV Infection [facility] Blood 04/08/2023 10:5 7 AM EST 04/08/2023 11:02 AM EST Narrative Resulting Agency Comment Spec In Lab Ana Maria Zacarias MD CHEMISTRY ORDERABLES Performing Organization Address [facility] Co de Phone Number [facility] [place] [address] * Hepatitis C Antibody (04/08/2023 10:57 AM EST) Hepatitis C Antibody Negative Negative [facility] Blood 04/08/2023 10:5 7 AM EST 04/08/2023 11:02 AM EST Narrative Resulting Agency Comment Spec In Lab Ana Maria Zacarias MD CHEMISTRY ORDERABLES Performing Organization Address [facility] Co de Phone Number [facility] [place] [address] * Hepatitis B Core Antibody, Total (04/08/2023 10:57 AM EST) Hepatitis B Core Antibody Negative Negative [facility] Blood 04/08/2023 10:5 7 AM EST 04/08/2023 11:02 AM EST Narrative Resulting Agency Comment Spec In Lab Ana Maria Zacarias MD CHEMISTRY ORDERABLES Performing Organization Address City/[facility] Co de Phone Number [facility] [place] [address] * Hepatitis B Surface Antigen (04/08/2023 10:57 AM EST) Hepatitis B Surface Antigen Negative Negative [facility] Blood 04/08/2023 10:5 7 AM EST 04/08/2023 11:02 AM EST Narrative Resulting Agency Comment Spec In Lab Ana Maria Zacarias MD CHEMISTRY ORDERABLES Performing Organization Address [facility] Co de Phone Number [facility] [place] [address] * Hepatitis B Surface Antibody (04/08/2023 10:57 AM EST) Hepatitis B Surface Antibody, Quantitative 43.0 IU/L [facility] Comment: HepB Surface Ab Quant: Unvaccinated: < 8.5 IU/L Vaccinated: >= 11.5 IU/L Hepatitis B Surface Antibody Positive [facility] Comment: Patient is considered to be immune to HBV infection. Expected Results: Vaccinated: Positive Unvaccinated: Negative Blood 04/08/2023 10:5 7 AM EST 04/08/2023 11:02 AM EST Narrative Resulting Agency Comment Spec In Lab Ana Maria Zacarias MD CHEMISTRY ORDERABLES Performing Organization Address City/[facility] Co de Phone Number [facility] [place] [address] * Hepatitis A Antibody, Total (04/08/2023 10:57 AM EST) Hepatitis A ANTIBODY, TOTAL Negative Negative [facility] Blood 04/08/2023 10:5 7 AM EST 04/08/2023 11:02 AM EST Narrative Resulting Agency Comment Spec In Lab Ana Maria Zacarias MD CHEMISTRY ORDERABLES Performing Organization Address [facility] Co de Phone Number [facility] [place] [address] * Prothrombin Time (04/08/2023 10:57 AM EST) Prothrombin Time 11.0 9.4 - 12.5 sec [facility] International Normalization Ratio 1.0 [facility] Comment: An INR <2.0 indicates adequate [...] MD HEMATOLOGY ORDERABLE S Performing Organization Address [facility] Co de Phone Number [facility] [place] [address] * (ABNORMAL) Comprehensive metabolic panel (non-fasting) (04/08/2023 10:57 AM EST) Glucose 126 65 - 199 mg/dL [facility] Comment:Diabetes: >=200 mg/d L plus symptoms Blood Urea Nitrogen 17 8 - 18 mg/dL [facility] Creatinine 0.68(L) 0.70 - 1.20 mg/dL [facility] Sodium 138 135 - 145 mmol/L [facility] Potassium 3.8 3.5 - 5.0 mmol/L [facility] Comment: Please note: ??Patients with WBC >100,000 may have falsely elevated Potassium levels. ??For accurate Potassium quantification in these patients send serum separator tube (gold top) for subsequent determinations. ??Contact the Clinical Chemistry Laboratory if there are any questions. Chloride 103 98 - 107 mmol/L [facility] Carbon Dioxide 23 22 - 31 mmol/L [facility] Anion Gap 12 5 - 15 mmol/L [facility] Calcium 9.0 8.5 - 10.5 mg/dL [facility] Protein, Total 6.8 6.1 - 8.0 g/dL [facility] Albumin 4.1 3.2 - 5.2 g/dL [facility] Aspartate Aminotransferase 20 0 - 30 unit/L [facility] Alanine Aminotransferase 24 0 - 30 unit/L [facility] Alkaline Phosphatase 137(H) 35 - 105 unit/L [facility] Bilirubin, Total 0.2 0.2 - 1.3 mg/dL [facility] Est Glomerular Filtration Rate 102 >=60 mL/min/1. 73 m?? [facility] Comment: This patient's estimated GFR [...] Lab Ana Maria Zacarias MD CHEMISTRY ORDERABLES [facility] [place] [address] documented in this encounter Visit Diagnoses Diagnosis Insomnia Insomnia, unspecified Elevated liver enzymes Nonspecific elevation of levels of transaminase or lactic acid dehydrogenase (LDH) Diarrhea, unspecified type Class 2 severe obesity due to excess calories with serious comorbidity and body mass index (BMI) of 37.0 to 37.9 in adult documented in this encounter Care Teams Heat Set Operator Relationship Specialty Start Date End Date Moise Lala MD PCP - General Family Medicine 06/26/17 02/15/24 documented as of this encounter
--- OUTSIDE RECORDS SUMMARY | 2024-05-26 13:19 | XMS_ITS | Encounter Summary ---
[place] [address] Care Team Providers Care Pole Sander Operator Name Role Phone Moise Lala MD Primary Care Provider [phone] Encounter Details Date Type Department Care Team (Late st Contact Info) Description 10/24/2021 Telephone [place] [id number] Marya Tatum Social History Tobacco Use Types Packs/Day Years [...] encounter Miscellaneous Notes * Telephone Encounter - Marya Tatum - 10/24/2021 4:15 PM EDT Nikia Denton [id number] Diagnosis/Indication: EUS and possible ERCP (pending EUS findings) within 2 weeks for possible retained gallstones suggested on outside MRI imaging in setting of abdo pain; post CCY. 1. Have you ever had a/an EUS & ERCP before? No If yes, did you have any problems with the procedure? No What type of sedation was used: None 2. Do you take any blood thinners or have you been diagnosed with a bleeding disorder that increases your risk of bleeding with procedures? No 3. Do you have a Pacemaker or Defibrillator device? No 4. Are you a diabetic? Yes: Controlled by diet or medication? Both 5. Do you have any Allergies to Eggs, Latex or Medications? Yes: EDH 6. Do you take any Oral Iron Supplements (Including multi-vitamins)? No 7. Do you have a history of three or more abdominal surgeries? No 8. Have you had a problem with sedation or anesthesia? No 9. Do you use a c-pap machine or oxygen tank? C-Pap 10. Do you take prescription narcotic pain medications, including suboxone or methodone? No 11. Do you have a preference regarding the gender of your provider? No Preference 12. Is there any other information you would like to us to note for the provider and nursing team who will perform your case? No 13. Say to patient: You must have a responsible libertarian who will drive you to your procedure, stay [place] for the entire duration of your procedure, and drive you home from your procedure? *Please Verify the height and weight, and adjust if height and/or weight have changed* Estimated body mass index is 40.51 kg/m?? as calculated from the following: Height as of 08/19/17: 167.6 cm (5' 6). Weight as of 09/22/17: 113.9 kg (251 lb). *Delete if not needed* Height: 5'6 Weight: 210 BMI: 33.9 Age:55 y.o. documented in this encounter Plan of Treatment Not on file documented as of this encounter Visit Diagnoses Not on filedocumented in this encounter Care Teams Pole Sander Operator Relationship Specialty Start Date End Date Moise Lala MD PCP - General Family Medicine 06/26/17 02/15/24 documented as of this encounter
--- OUTSIDE RECORDS SUMMARY | 2024-05-26 13:19 | XMS_ITS | Encounter Summary ---
[facility] Organization [facility] [place] [address] Care Team Providers Care Dance Hall Hostess Name Role Phone Moise Lala MD Primary Care Provider [phone] Reason for Visit * Reason Onset Date Comments Disability Paperwork 09/24/2017 Encounter Details Date Type Department Care Team (Late st Contact Info) Description 09/24/2017 Telephone Obstetrics [place] [address] Naty Lovelace, RN Disability Paperwork Social History Tobacco Use Types Packs/Day Years [...] encounter Miscellaneous Notes * Telephone Encounter - Naty Lovelace, RN - 09/24/2017 11:08 AM EDT Addendum: Patient returns call stating needs paperwork to reflect return to work half time (which was given to me by Dr. 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 Toth, to be faxed to insurance company. Also requests letter for work reflecting the same to be faxed to [phone] * Telephone Encounter - Naty Lovelace RN - 09/24/2017 10:28 AM EDT TELEPHONE NOTE Caller: Naty Lovelace RN Reason for call: Short term disability paperwork now completed Assessment: Patient has left message requesting, to be dated as return to work on 09/09/17, but also requesting return to work note? Had follow up appointment with Dr. Toth 09/22/17 Plan/Instructions: Message left yesterday and today to please direct as to where to send completed paperwork, and whether if needs separate return to work letter. documented in this encounter Plan of Treatment Not on file documented as of this encounter Visit Diagnoses Not on filedocumented in this encounter Care Teams Dance Hall Hostess Relationship Specialty Start Date End Date Moise Lala MD PCP - General Family Medicine 06/26/17 02/15/24 documented as of this encounter
--- OUTSIDE RECORDS SUMMARY | 2024-05-26 13:19 | XMS_ITS | Encounter Summary ---
Author Organization [facility] [place] [address] Care Team Providers Care Music Rehabilitation Therapist Name Role Phone Moise Lala MD Primary Care Provider [phone] Reason for Visit * Auth/Cert Specialty Diagnoses / Procedures Referred By Gael ritter Referred To Contact Diagnoses Abdominal pain EUS and possible ERCP (pending EUS findings) within 2 weeks for possible retained gallstones suggested on outside MRI imaging in setting of abdo pain; post CCY. Procedures PRO ENDOSCOPIC US EXAM, ESOPH PRO ERCP,DIAGNOSTIC PRO UPPER GI ENDOSCOPY, BIOPSY PRO UP GI ENDOSCOPY, REMV TUMOR, SNARE PRO UPPER GI ENDOSCOPY, DIAGNOSTIC PRO ANESTH, UGI ENDOSCOPY ERCP PRO ANESTH, COMBINED UPPER OR LOWER ENDOSCOPY UPPER EUS- ENDOSCOPIC ULTRASOUND ERCP Guillermo Omer MD [facility] [place] [address] [facility] Referral ID Status Reason Start Date Expiration Date Visits Re quested Visits Authorized [id number] 1 1 Encounter Details Date Type Department Care Team (Latest Contact Info) Description 11/07/2021 7:33 AM EDT - 11/07/2021 12:08 PM EDT Hospital Encounter [place] [address] Guillermo Omer MD [facility] [place] [address] Discharge Disposition: Home Social History [...] Sign Reading Time Taken Comments Blood Pressure 140/86 11/07/2021 11:10 AM EDT Pulse 87 11/07/2021 7:40 AM EDT Temperature 36 ??C (96.8 ??F) 11/07/2021 7:40 AM EDT Respiratory Rate 16 11/07/2021 11:00 AM EDT Oxygen Saturation 97% 11/07/2021 11:10 AM EDT Inhaled Oxygen Concentration - - Weight 95.3 kg (210 lb) 11/07/2021 7:40 AM EDT Height 170.2 cm (5' 7) 11/07/2021 7:40 AM EDT Body Mass Index 32.89 11/07/2021 7:40 AM EDT documented in this encounter Discharge Instructions * Discharge Instructions* Vivi Maldonado RN - 11/07/2021 10:08 AM EDT Endoscopic Retrograde Cholangiopancreatogram (ERCP): What to Expect at Home Your Recovery After you have an endoscopic retrograde cholangiopancreatogram (ERCP), you will be able to go home after your doctor or a nurse checks to make sure you are not having any problems. If you stay in thehospital overnight, you may go home the next day. You may have a sore throat for a day or two after the procedure. This care sheet gives you a general idea about how long it will take for you to recover. But each person recovers at a different pace. Follow the steps below to get better as quickly as possible. How can you care for yourself at home? Activity Rest when you feel tired. You can do your normal activities when it feels okay to do so. Diet Follow your doctor's directions for eating. Unless your doctor has told you not to, drink plenty of fluids. Do not drink alcohol. Medicines Your doctor [...] your doctor wants you to do. If a sphincterotomy was done during the test, your doctor may tell you not to take aspirin or otheranti-inflammatory medicines for a few days. These include ibuprofen (Advil, Motrin) and naproxen (Aleve). If you have a sore throat the day after the procedure, use an zcpk-dot-ebyyofk spray to numb your throat. Sucking on [...] occurs, please contact your Doctor. Please call [phone] before 8pm Mon-Fri with problems, questions or concerns. If you call after 8pm or on weekends, call the Hospital at [phone] and ask to speak to the Fountain Operator weight control engineer and the insole toe snipping machine operator will contact that person for you. When should you call for help? Call [phone] anytime you think you may need emergency [...] contact your doctor if you have any problems, like Where can you learn more? [facility] View your After Visit Summary and more online at [email or web address] If you would like to provide feedback about your hospital experience, please call the Office of Patient and Family Relations at . If you have received this After Visit Summary in error, please immediately return it in person to the department, or notify the [facility] Privacy Office by calling toll free at between the hours of 8AM and 5PM to arrange for our retrieval of the documents at no cost to you. Content Version: 12.2 ?? [id number] [employer]. Care instructions adapted under license by [facility]. If you have questions about a medical condition or this instruction, always ask your healthcare professional. [employer] disclaims any warranty or liability for your use of this information. * Patient Instructions* Guillermo Omer MD - 11/07/2021 10:12 AM EDT Please see Recommendations in the Provation procedure report which is documented in the procedural note in E-DH. documented in this encounter Medications at Time of Discharge Medication Sig Dispensed Refills Start Date End Date losartan (Cozaar) 25 mg Tablet 08/21/2021 sertraline [...] 2,000 unit Tablet Take by mouth daily. cholestyramine light 4 gram Powder in Packet 09/11/20212022 Trulicity 1.5 mg/0.5 mL Pen Injector 08/10/2021 04/08/2023 zolpidem (Ambien) 5 mg Tablet 10/05/2021 06/23/2023 nicotine (NICODERM CQ) 21 mg/[address] 1 patch onto the skin daily. 28 patch 3 08/20/2017 04/08/2023 buPROPion (WELLBUTRIN XL) 150 mg Tablet Extended Release 24 hr 0 06/30/201704/08 tiZANidine (ZANAFLEX) 2 mg Tablet 08/07/2017 08/21/2023 omeprazole (PRILOSEC) 40 mg Capsule, Delayed Release(E.C.) Take 40 mg by mouth 2 times daily. 1 06/23/2017 04/08/2023 Biotin 5 mg Capsule Take by mouth daily. 03/02/2024 traZODone (DESYREL) 50 mg tabletIndications:Insom cristina Take by mouth. 1-2 tablets at HS 90 tablet 0 04/02/2011 04/08/2023 documented as of this encounter H&P Notes * Guillermo Omer MD - 11/07/2021 8:18 AM EDT Gastroenterology and Hepatology Pre-Procedure History and Physical Exam Procedure: ERCP: EUS: Indication: S/p cholecystectomy 08/29/21 with recurrent pain and abnormal MRCP (possible retained stones), normal LFTs. Patient Active Problem List Diagnosis Code ??? Hypertension I10 ??? Fibromyalgia M79.7 ??? Smokes 1/2 pack a day or less F17.210 ??? Gastroesophageal reflux K21.9 ??? Chronic anxiety with deprressed mood F41.9 ??? BERTA on CPAP G47.33, Z99.89 ??? Eczema L30.9 ??? Hyperlipidemia E78.5 ??? Alopecia L65.9 ??? Glucose intolerance (impaired glucose tolerance) R73.02 ??? Morbid obesity with BMI of 40.0-44.9, adult E66.01, Z68.41 ??? LBBB (left bundle branch block) I44.7 ??? Urinary frequency R35.0 EXAM: HEENT: Airway examined, oropharynx clear Mallampati Score: Per anesthesia LUNGS: Clear to auscultation HEART: Regular rate and rhythm, normal S1, S2 ABDOMEN: Normal bowel sounds, soft, non tender, non distended, A/P Proceed with the planned endoscopic procedure. ASA 2 - Patient with mild systemic disease with no functional limitations Sedation Plan: anesthesia Risks and benefits of the procedure explained to the patient. Consent signed. documented in this encounter Miscellaneous Notes * Op Note - Guillermo Omer MD - 11/07/2021 8:45 AM EDT [facility] Operative Note Patient Name: Nikia Denton : [id number] MR#: [id number] Case Date: 11/07/2021 Surgeon: Surgeon(s) and Role: * Guillermo Omer MD - Primary Preoperative diagnosis: EUS and possible ERCP (pending EUS findings) within 2 weeks for possible retained gallstones suggested on outside MRI imaging in setting of abdo pain; post CCY. Postoperative diagnosis: * No post-op diagnosis entered * Procedure(s) (LRB): UPPER EUS- ENDOSCOPIC ULTRASOUND (N/A) ERCP W/SPHINCTEROTOMY/PAPILLOTOMY (N/A) ERCP W/REMOVAL CALCULI/DEBRIS FROM BILARY/PANCREATIC DUCT(S) Anesthesia: General Full procedure note is documented under the Procedure section of eDH. documented in this encounter Plan of Treatment Not on file documented as of this encounter Procedures Procedure Name Priority Date/Time Associated Diagnosis Comments XR ERCP Routine 11/07/2021 9:46 AM EDT Ercp, W/Removal Stone, Soto/Pancr Ducts ([id number]) 11/07/2021 8:27 AM EDT EUS and possible ERCP (pending EUS findings) within 2 weeks for possible retained gallstones suggested on outside MRI imaging in setting of abdo pain; post CCY. Ercp, Sphincterotomy ([id number]) 11/07/2021 8:27 AM EDT EUS and possible ERCP (pending EUS findings) within 2 weeks for possible retained gallstones suggested on outside MRI imaging in setting of abdo pain; post CCY. Endoscopic Us Exam, Esoph ([id number]) 11/07/2021 8:27 AM EDT EUS and possible ERCP (pending EUS findings) within 2 weeks for possible retained gallstones suggested on outside MRI imaging in setting of abdo pain; post CCY. UPPER EUS-ENDOSCOPIC ULTRASOUND Routine 11/07/2021 8:19 AM EDT ERCP Routine 11/07/2021 8:06 AM EDT documented in this encounter Results * XR ERCP (11/07/2021 9:46 AM EDT) Narrative [facility] - 11/07/2021 9:47 AM EDT See PACS for result report. Guillermo Omer MD [facility] [place] FILM LIBRARY ORD ERABLES [place], [place] * UPPER EUS-ENDOSCOPIC ULTRASOUND (11/07/2021 8:19 AM EDT) [facility] UPPER ENDOSCOPIC ULTRASOUND [facility] Procedure Date: 11/07/2021 8:19 AM ? Patient Name: Nikia Denton ? Date of : 1965 ? Age: 55 ? Order #: [id number] ? Instrument Name: [id number] ? Procedure: ? Upper EUS Indications: ? Choledocholithiasis on MRCP, ? Suspected choledocholithiasis Providers: ? Guillermo Omer MD, Clau Sagastume ? TREVA Livingston, Goins Memar Referring MD: ?Moise Lala Medicines: ? Propofol per Anesthesia Complications: ? No immediate complications. Procedure: ? [...] informed consent was ? obtained. ? - ASA Grade Assessment: II - A ? patient with mild systemic disease. ? - Using IV propofol under the ? supervision of an anesthesiologist ? was determined to be medically ? necessary for this procedure based ? on complex procedure (ERCP, EUS). ? The procedure, indications, ? benefits, risks and alternatives ? were explained to the patient. ? Specifically discussed were ? potential complications including, ? but not limited to, bleeding, ? perforation, infection, missing a ? cancer, and adverse medication ? reactions.The ULTRASOUND SCOPE was ? introduced through the mouth, and ? advanced to the second part of ? duodenum. The patient tolerated the ? procedure well. ? Findings: ? ENDOSCOPIC FINDING: : ? The examined esophagus was endoscopically normal. ? The entire examined stomach was endoscopically normal. ? The examined duodenum was endoscopically normal. ? ENDOSONOGRAPHIC FINDING: : ? The esophagus, stomach and duodenum were visualized ? endosonographically and were unremarkable. ? One stone was visualized endosonographically in the ? distal common bile duct. The stone measured 5 mm in ? greatest dimension. It was hyperechoic and ? characterized by shadowing. There was mild dilation ? of CHD (10 mm) with normal tapering of mid-distal CBD. ? The gallbladder is surgically absent. ? There was no sign of significant endosonographic ? abnormality in the entire pancreas. ? The visualized portions of the liver were diffusely ? echogenic (limited exam). There were no masses or ? ductal dilation. ? No lymphadenopathy seen. ? Moderate Sedation: ? Not applicable - See Anesthesia documentation Impression: ?- Choledocholithiasis. ? - Fatty liver. Recommendation: ?- Perform an ERCP today. ? Attending Participation: ? I personally performed the entire procedure. ? Guillermo Omer MD 11/07/2021 10:07:21 AM This report has been signed electronically. Number of Addenda: 0 Note Initiated On: 11/07/2021 8:19 AM [facility] 11/07/2021 8:19 AM EDT Moise Lala MD GENERAL SURGICAL ORD ERABLES [facility] * ERCP (11/07/2021 8:06 AM EDT) ERCP [facility] End[facility] Procedure Date: 11/07/2021 8:06 AM ? Patient Name: Nikia Denton ? N: [id number] ? Date of : 1965 ? Age: 55 ? Order #: [id number] ? Instrument Name: [id number] ? Procedure: ? ERCP Indications: ? Abnormal MRCP, Abnormal endoscopic ? ultrasound of the biliary system, ? Evaluation and possible treatment ? of bile duct stone(s) Providers: ? Guillermo Omer MD, Clau Sagastume ? Yara, TREVA, Buster Pastrana MD: ?Moise Lala Medicines: ? General Anesthesia, Indomethacin ? 100 mg FL Complications: ? No immediate complications. Procedure: ? [...] informed consent was ? obtained. ? - ASA Grade Assessment: II - A ? patient with mild systemic disease. ? - General anesthesia under the ? supervision of an anesthesiologist ? was determined to be medically ? necessary for this procedure based ? on complex procedure (ERCP, EUS). ? The procedure, indications, ? benefits, risks and alternatives ? were explained to the patient. ? Specifically discussed were ? potential complications including, ? but not limited to, bleeding, ? perforation, infection, ? pancreatitis, missing a cancer, and ? adverse medication reactions.The ? Duodenoscope was introduced through ? the mouth, and advanced to the ? duodenum where it was used to ? inject contrast into and used to ? inject contrast into the bile duct ? and ventral pancreatic duct. The ? patient tolerated the procedure ? well. ? Findings: ? A interior design professional film of the abdomen was obtained. Surgical ? clips, consistent with a previous cholecystectomy, ? were seen in the area of the right upper quadrant of ? the abdomen. The esophagus was successfully intubated ? under direct vision. The scope was advanced to a ? normal major papilla in the descending duodenum ? without detailed examination of the pharynx, larynx ? and associated structures, and upper GI tract. The ? upper GI tract was grossly normal. The ampulla was ? small and located behind a fold and was initially ? difficult to find. The bile duct was deeply ? cannulated with the short-nosed traction ? sphincterotome and guidewire. Contrast was injected. ? I personally interpreted the bile duct images. There ? was brisk flow of contrast through the ducts. Image ? quality was excellent. Contrast extended to the ? hepatic ducts. Opacification of the entire biliary ? tree except for the gallbladder was successful. The ? maximum diameter of the ducts was 6 mm. The lower ? third of the main bile duct contained one stone, ? which was 5 mm in diameter. A 0.025 in Visiglide II ? wire was passed into the biliary tree. An 8 mm ? biliary sphincterotomy was made with a monofilament ? CleverCut cqmb-kea-yvpz sphincterotome using ERBE ? electrocautery. The sphincterotomy oozed blood. The ? biliary tree was swept with an 11.5 mm balloon ? starting at the bifurcation. One stone was removed. ? No stones remained. The PD was briefly accessed with ? the guide wire during initial cannulation attempts ? but no contrast was injected. ? Moderate Sedation: ? Not applicable - See Anesthesia documentation Impression: ?- Choledocholithiasis was found. ? Complete removal was accomplished ? by biliary sphincterotomy and ? balloon extraction. Recommendation: ?- Observe patient's clinical course. ? Attending Participation: ? I personally performed the entire procedure. ? Guillermo Omer MD 11/07/2021 10:11:12 AM This report has been signed electronically. Number of Addenda: 0 Note Initiated On: 11/07/2021 8:06 AM [facility] 11/07/2021 8:06 AM EDT Moise Lala MD GENERAL SURGICAL ORD ERABLES [facility] documented in this encounter Visit Diagnoses Not on filedocumented in this encounter Administered Medications Inactive Administered Medications - up to 3 most recent administrations Medication Order MAR Action Action Date Dose Rate Site lactated ringers infusion 100 mL/hr, Intravenous, CONTINUOUS, Starting on Fri11/07/21 at 0800, Until Fri11/07/21 at 1409, Endoscopy (Day of Procedure) Restarted 11/07/2021 8:33 AM EDT New Bag 11/07/2021 7:50 AM EDT 100 mL/hr 100 mL/hr documented in this encounter Active and Recently Administered Medications Times are shown in EDT. Continuous Medication Order 11/05/2021 11/06/2021 11/07/2021 lactated ringers infusion 100 mL/hr, Intravenous, CONTINUOUS, Starting on Fri11/07/21 at 0800, Until Fri11/07/21 at 1409, Endoscopy (Day of Procedure) 0750 (New Bag - Prov ider: Rebeca Whiting RN)0832 (Paused - Provider: Arnoldo Angel CRNA - Comment: Switch to gravity)0833 (Restarted - Provider: Arnoldo Angel CRNA)0941 (Anesthesia Volume Adjustment - Provider: Arnoldo Angel CRNA) PRN Medication Order 11/05/2021 11/06/2021 11/07/2021 indomethacin (Indocin) suppository (CANCELED) ONCE PRN, Starting on Fri11/07/21 at 0936, Until Fri11/07/21 at 1409, Intra-Operative (Intra-Procedure), Routine 0936 (Given - Provid er: Clau Livingston RN) documented in this encounter Care Teams Music Rehabilitation Therapist Relationship Specialty Start Date End Date Moise aLla MD PCP - General Family Medicine 06/26/17 02/15/24 documented as of this encounter
--- OUTSIDE RECORDS SUMMARY | 2024-05-26 13:19 | XMS_ITS | Encounter Summary ---
Author Organization [facility] [place] [address] Care Team Providers Care Graphic Design Intern Name Role Phone Moise Lala MD Primary Care Provider [phone] Reason for Visit * Auth/Cert Specialty Diagnoses [...] EUS- ENDOSCOPIC ULTRASOUND ERCP Guillermo Omer MD [facility] [place] [address] [facility] Referral ID Status Reason Start Date Expiration Date Visits Re quested Visits Authorized [id number] 1 1 Encounter Details Date Type Department Care Team (Late st Contact Info) Description 11/07/2021 8:30 AM EDT - 11/07/2021 10:00 AM EDT Surgery [place] [address] Guillermo Oemr MD [facility] [address] UPPER EUS- ENDOSCOPIC ULTRASOUND (WRVU 3.47) Social History Tobacco Use Types Packs/Day Years [...] Sign Reading Time Taken Comments Blood Pressure 74/60 11/07/2021 10:00 AM EDT Pulse 87 11/07/2021 7:40 AM EDT Temperature 36 ??C (96.8 ??F) 11/07/2021 7:40 AM EDT Respiratory Rate 16 11/07/2021 7:40 AM EDT Oxygen Saturation 100% 11/07/2021 10:00 AM EDT Inhaled Oxygen Concentration - - [...] the day after the procedure, use an sthf-dfe-wemozap spray to numb your throat. Sucking on [...] occurs, please contact your Doctor. Please call [phone] before 8pm Mon-Fri with problems, questions or concerns. If you call after 8pm or on weekends, call the Hospital at [phone] and ask to speak to the Auto Parts Handler semiconductor packages leak tester and the roll over press operator will contact that person for you. When should you call for help? Call [phone] anytime you think you may need emergency [...] problems, like Where can you learn more? [facility] View your After Visit Summary and more online at [email or web address] If you would like to provide feedback about your hospital experience, please call the Office of Patient and Family Relations at . If you have received this After Visit Summary in error, please immediately return it in person to the department, or notify the [facility] Privacy Office by calling toll free at between the hours of 8AM and 5PM to arrange for our retrieval of the documents at no cost to you. Content Version: 12.2 ?? [id number] [employer]. Care instructions adapted under license by [facility]. If you have questions about a medical condition or this instruction, always ask your healthcare professional. [employer] disclaims any warranty or liability for your [...] Omer MD - 11/07/2021 8:45 AM EDT [facility] [place] Patient Name: Nikia Denton : [id number] MR#: [id number] Case Date: 11/07/2021 Surgeon: Surgeon(s) and Role: [...] AM EDT Ercp, W/Removal Stone, Soto/Pancr Ducts ([id number]) 11/07/2021 8:27 AM EDT EUS and possible ERCP (pending EUS findings) within 2 weeks for possible retained gallstones suggested on outside MRI imaging in setting of abdo pain; post CCY. Ercp, Sphincterotomy ([id number]) 11/07/2021 8:27 AM EDT EUS and possible ERCP (pending EUS findings) within 2 weeks for possible retained gallstones suggested on outside MRI imaging in setting of abdo pain; post CCY. Endoscopic Us Exam, Esoph ([id number]) 11/07/2021 8:27 AM EDT EUS and possible ERCP (pending EUS findings) within 2 weeks for possible retained gallstones suggested on outside MRI imaging in setting of abdo pain; post CCY. UPPER EUS-ENDOSCOPIC ULTRASOUND Routine 11/07/2021 8:19 AM EDT ERCP Routine 11/07/2021 8:06 AM EDT documented in this encounter Results * XR ERCP (11/07/2021 9:46 AM EDT) Narrative PRASANNA - 11/07/2021 9:47 AM EDT See PACS for result report. Guillermo Omer MD IM FILM LIBRARY ORD ERABLES [place], [place] * UPPER EUS-ENDOSCOPIC ULTRASOUND (11/07/2021 8:19 AM EDT) UPPER ENDOSCOPIC ULTRASOUND [facility] Procedure Date: 11/07/2021 8:19 AM ? Patient Name: Nikia Denton ? Date of : 1965 ? Age: 55 ? Order #: [id number] ? Instrument Name: [id number] ? Procedure: ? Upper EUS Indications: ? Choledocholithiasis on MRCP, ? Suspected choledocholithiasis Providers: ? Guillermo Omer MD, Clau Sagastume ? TREVA Livingston, Buster Staton Referring MD: ?Moise Lala Medicines: ? Propofol [...] * ERCP (11/07/2021 8:06 AM EDT) ERCP [facility] Procedure Date: 11/07/2021 8:06 AM ? Patient Name: Nikia Denton ? N: [id number] ? Date of : 1965 ? Age: 55 ? Order #: [id number] ? Instrument Name: [id number] ? Procedure: ? ERCP Indications: ? Abnormal MRCP, Abnormal endoscopic ? ultrasound of the biliary system, ? Evaluation and possible treatment ? of bile duct stone(s) Providers: ? Guillermo Omer MD, Clau Hewitt. ? TREVA Livingston, Buster Pastrana MD: ?Moise Lala Medicines: ? General Anesthesia, Indomethacin ? 100 mg IN Complications: ? No immediate complications. Procedure: ? [...] procedure ? well. ? Findings: ? A it systems analyst film of the abdomen was obtained. Surgical [...] was made with a monofilament ? Clever[employer] ctfl-qmn-yhez sphincterotome using ERBE ? electrocautery. The sphincterotomy [...] MAR Action Action Date Dose Rate Site indomethacin (Indocin) suppository ONCE PRN, Starting on Fri11/07/21 at 0936, Until Fri11/07/21 at 1409, Intra-Operative (Intra-Procedure), Routine Given 11/07/2021 9:36 AM EDT 100 mg lactated ringers infusion 100 mL/hr, Intravenous, CONTINUOUS, [...] RN) documented in this encounter Care Teams Graphic Design Intern Relationship Specialty Start Date End Date Moise Lala MD PCP - General Family Medicine 06/26/17 02/15/24 documented as of this encounter
--- OUTSIDE RECORDS SUMMARY | 2024-05-26 13:19 | XMS_ITS | Encounter Summary ---
Author Organization [facility] Address [facility] [place] [address] Care Team Providers Care Rod Piler Name Role Phone Moise Lala MD Primary Care Provider [phone] Reason for Referral * Consultation (Routine) - [...] appropriate next step. Ana Maria Hendricks MD [address] [place] [address] Giselle Nelson MD [facility] [address] [place] [address] Referral ID Status Reason Start Date Expiration Date V isits Requested Visits Authorized [id number] Closed Consult, Test & Treat PCP Updated and/or Approved 03/13/2023 03/12/2024 6 6 Encounter Details Date Type Department Care Team (Latest Contact Info) Description 03/13/2023 Transcribe Orders eDH Incoming Referrals [phone] Ana Maria Hendricks MD Cardiomyopathy, unspecified type; LBBB (left bundle branch block) Social History Tobacco Use Types Packs/Day Years [...] Type Priority Associated Diagnoses Orde r Schedule Referral to Cardiology Outpatient Referral Routine Cardiomyopathy, unspecified type LBBB (left bundle branch block) Ordered: 03/13/2023 documented as of this encounter Visit Diagnoses Diagnosis Cardiomyopathy, unspecified type LBBB (left bundle branch block) Other left bundle branch block documented in this encounter Care Teams Rod Piler Relationship Specialty Start Date End Date Moise Lala MD PCP - General Family Medicine 06/26/17 02/15/24 documented as of this encounter
--- OUTSIDE RECORDS SUMMARY | 2024-05-26 13:19 | XMS_ITS | Encounter Summary ---
[place] [address] Care Team Providers Care Genetics Nurse Name Role Phone Moise Lala MD Primary Care Provider [phone] Encounter Details Date Type Department Care Team (Late st Contact Info) Description 11/12/2021 Telephone [place] [address] Thomas Hawthorne MD [facility] DR GASTROENTER[place] [address] Social History Tobacco Use Types Packs/Day Years [...] encounter Miscellaneous Notes * Telephone Encounter - Thomas Hawthorne - 11/12/2021 2:46 PM EDT Images from the original note were not included. DIVISION OF GASTROENTEROLOGY & HEPATOLOGY [facility] CALL Name: Nikia Denton Date: 11/12/2021 Time: 2:46 PM [facility] Referring Provider: OTILIA Montemayor calls re: Ms. Denton, a 55-year-old obese woman s/p recent lap leighton who was found to have residual choledocholithiasis on MRCP for which she just had a EUS/ERCP for stone removal on 11/07. She presents with persistent symptoms, specifically RUQ pain, N/V, and non-bloody diarrhea.There, she remains afebrile, HDS. Labs notable for normal LFTs, lipase. I explained it's not clear what's causing Ms. Denton's discomfort but considerations include post-ERCP pancreatitis, bile leak, hepatic abscess. Lab pattern thus far not suggestive of any of these. I recommended performing a contrast-enhanced CT for further evaluation. Re: her diarrhea, this may just be post-cholecystectomy diarrhea, and recommended considering a trial of Colestid/Questran. This is not an official consult, as my recommendations are limited by my inability to interview andexamine the patient as well as personally review the medical record, imaging, and laboratory findings. Thomas Hawthorne MD PGY-5, Gastroenterology documented in this encounter Plan of Treatment Not on file documented as of this encounter Visit Diagnoses Not on filedocumented in this encounter Care Teams Genetics Nurse Relationship Specialty Start Date End Date Moise Lala MD PCP - General Family Medicine 06/26/17 02/15/24 documented as of this encounter
--- OUTSIDE RECORDS SUMMARY | 2024-05-26 13:19 | XMS_ITS | Encounter Summary ---
[place] [address] Care Team Providers Care Traveling Phlebotomist Name Role Phone Moise Lala MD Primary Care Provider [phone] Encounter Details Date Type Department Care Team (Late st Contact Info) Description 08/22/2017 Telephone Obstetrics [place] [phone] Kody Toth MD Social History Tobacco Use Types Packs/Day Years [...] encounter Miscellaneous Notes * Telephone Encounter - Kody Toth MD - 08/22/2017 11:55 AM EDT Patient contacted with results of surgical pathology: Surgical Pathology DIAGNOSIS Uterus, cervix and bilateral fallopian tubes, hysterectomy and bilateral ??salpingectomy: - Benign cervix. - Secretory endometrium. - Adenomyosis. - Leiomyomas. - Benign fallopian tubes with paratubal cysts. Electronically signed by: ??Shruthi Long MD Verified: ??08/22/2017 ?Pathologist Performed at: ??[facility] [place] [facility] [place] [place], [place] She states she is feeling well, has had a bowel movement, taking mainly tylenol and ibuprofen. No fever or chills, no signs of infection at incision sites. She will follow-up as scheduled for her postop visit, sooner prn. Kody Toth MD documented in this encounter Plan of Treatment Not on file documented as of this encounter Visit Diagnoses Not on filedocumented in this encounter Care Teams Traveling Phlebotomist Relationship Specialty Start Date End Date Moise Lala MD PCP - General Family Medicine 06/26/17 02/15/24 documented as of this encounter
--- OUTSIDE RECORDS SUMMARY | 2024-05-26 13:19 | XMS_ITS | Encounter Summary ---
Author Organization [facility] [place] [address] Care Team Providers Care Bonsai Tender Name Role Phone Moise Lala MD Primary Care Provider [phone] Encounter Details Date Type Department Care Team (Late st Contact Info) Description 09/01/2017 Telephone Obstetrics [place] [address] Melody Lindo MD [facility] DR OBSTETRICS [place] [address] Social History Tobacco Use Types Packs/Day Years [...] encounter Miscellaneous Notes * Telephone Encounter - Melody Lindo - 09/01/2017 2:24 PM EDT After discussion with primary surgeon, Dr. Toth, called patient this afternoon to offer 3 day course of Pyridium (100mg TID) to help with bladder symptoms. She is in agreement with this plan. Rx sent to preferred pharmacy. Melody Lindo MD 04/16/18 documented in this encounter Plan of Treatment Not on file documented as of this encounter Visit Diagnoses Not on filedocumented in this encounter Care Teams Bonsai Tender Relationship Specialty Start Date End Date Moise Lala MD PCP - General Family Medicine 06/26/17 02/15/24 documented as of this encounter
--- OUTSIDE RECORDS SUMMARY | 2024-05-26 13:19 | XMS_ITS | Encounter Summary ---
[place] [address] Care Team Providers Care Control Cabinet Assembler Name Role Phone Moise Lala MD Primary Care Provider [phone] Reason for Visit * Auth/Cert Specialty Diagnoses / Procedures Referred By Contluda t Referred To Contact Diagnoses Morbid (severe) obesity due to excess calories Nicotine dependence, unspecified, uncomplicated Abnormal uterine bleeding (AUB) perimenopausal AUB Procedures PRO LAPAROSCOPY W TOT HYSTERECT UTERUS 250 GRAM OR LESS LAPAROSCOPY, HYSTERECTOMY, UTERUS<250GMS (WRVU 13.36) Referral ID Status Reason Start Date Expiration Date Visits Re quested Visits Authorized [id number] 1 1 Encounter Details Date Type Department Care Team (Latest Contact Info) Description 08/19/2017 5:50 AM EDT - 08/20/2017 10:30 AM EDT Hospital Encounter [place] [address] Kody Toth MD Morbid obesity; Tobacco use disorder; Essential hypertension; BERTA (obstructive sleep apnea); Abnormal uterine bleeding Discharge Disposition: Home Social History Tobacco Use [...] Sign Reading Time Taken Comments Blood Pressure 133/77 08/20/2017 7:42 AM EDT Pulse 75 08/20/2017 7:42 AM EDT Temperature 36.9 ??C (98.4 ??F) 08/20/2017 7:42 AM ED T Respiratory Rate 18 08/20/2017 7:42 AM EDT Oxygen Saturation 97% 08/20/2017 7:42 AM EDT Inhaled Oxygen Concentration - - Weight 114.3 kg (252 lb) 08/19/2017 6:17 AM EDT Height 167.6 cm (5' 6) 08/19/2017 6:17 AM EDT Body Mass Index 40.67 08/19/2017 6:17 AM EDT documented in this encounter Discharge Summaries * Melody Lindo - 08/20/2017 8:59 AM EDT Images from the original note were not included. Discharge Summary Patient Name: Nikia Denton Patient Age: 51 y.o. Language: Montenegrin Race: White Ethnicity: Not nor Admit date: 08/19/2017 Discharge date and time: 08/20/17 8:59 AM Attending Physician: Kody Toth MD Discharge Physician: Kody Toth MD Follow-up Recommendations for Providers: -- 4-6 weeks for postoperative visit -- Final surgical pathology Inpatient Provider Contact Information: [facility] Department, Discharge Diagnoses (Hospital Problems) and Secondary Diagnoses (Chronic Problems): Active Hospital Problems Diagnosis ??? Abnormal uterine bleeding ??? Smokes 1/2 pack a day or less ??? BERTA on CPAP ??? Morbid obesity with BMI of 40.0-44.9, adult ??? Hypertension ??? Glucose intolerance (impaired glucose tolerance) ??? Chronic anxiety with deprressed mood Resolved Hospital Problems Diagnosis Date Resolved No resolved problems to display. Active Non-Hospital Problems Diagnosis ??? LBBB (left bundle branch block) ??? Fibromyalgia ??? Gastroesophageal reflux ??? Eczema ??? Hyperlipidemia ??? Alopecia Operations/Major Procedures: 08/19/2017: Total laparoscopic hysterectomy, bilateral salpingectomy and diagnostic cystoscopy History of Presentation: Nikia Ayala is a 2 para 0020 kindly referred for further evaluation of perimenopausal abnormal vaginal bleeding. The patient reports an essentially lifelong history of irregular menses since menarche at age 13. She reportedly underwent an infertility evaluation when she was younger to include hysterosalpingogram. She spontaneously conceived at age 41 and again at age 43, both pregnancies unfortunately resulting in miscarriage at 8 and 12 weeks estimated gestational age respectively. She underwent a D&C for her second miscarriage. She is the mother of 4 adopted siblings. ?? Lucy reports irregular and prolonged episodes of bleeding including flooding up until approximately December 2016. She then began to experience vaginal dryness and vasomotor symptoms. She briefly started to use estrogen cream but then began having bleeding and spotting. She recently underwent an endometrial biopsy under the care of her primary care physician which reportedly showed metaplastic changes. This report is unavailable to me at this time. In addition, she reports symptoms of pelvic cramping and fullness and irritative bladder symptoms for which she has had a negative urinalysis. ?? Review of systems: She denies constitutional symptoms including weight loss, fever, chills, loss ofappetite. She reports no change in her bowel habit. She denies vaginal discharge. Hospital Course: Nikia Denton was admitted through [facility] and underwent the above procedures without complication. EBL was 50mL. Findings were notable for: 1. Normal appearing uterus, fallopian tubes and ovaries 2. Normal appearing bladder, patent bilateral ureteral orifices Postoperatively the patient was taken to PACU and on POD #0 was transferred to the floor. Post operative course was uncomplicated. She was able to tolerate a regular diet and ambulate without difficulty. Benavidez catheter was removed on POD#1 and pt was able to void without issue. Her pain was well-controlled on oral medications by the time of discharge. She was discharged home on POD #1 in stable condition with follow-up in place. We discussed discharge instructions and plan of care, all questions answered. Due to her post-operative pain the patient was given a prescription for oxycodone to take only for breakthrough pain not responsive to acetaminophen and ibuprofen. She was counseled regarding the dangers of these medications including sedation which would impair her ability to drive safely. The potential for addiction with continued use of narcotic was discussed and the need to stop use as soon as possible. It was recommended that she promptly destroy unused medication or take them back to dropbox locations. The opioid risk assessment was done, opioid informed consent reviewed and signed by patient, PDMP query completed. Discharge instructions discussing the risk of opioids are included in her discharge instructions which are printed and given to the patient at discharge. Vital signs at Discharge: BP: 133/77, Heart Rate: 75, Temp: 36.9 ??C (98.4 ??F), Resp: 18, BMI (Calculated): 40.67 Height: 167.6 cm (5' 6) (08/19/17616) Weight: 114.3 kg (252 lb) (08/19/17616) Functional and Cognitive status: Fully functional and cognitively intact Important Studies and Lab Data: Labs: Last 3 wbc, hgb, hct plt Recent Labs 08/08/17 1759 WBC 10.2* HGB 12.3 HCT 37.4 PLATELET 337 Last 3 Lytes Recent Labs 08/08/17 1759 NA 137 K 4.0 CL 98 CO2 27 BUN 16 CREATININE 0.82 Last 3 LFTs Recent Labs 08/08/17 1759 AST 8 ALT 19 ALKPHOS 104 BILITOT 0.2 Studies: None Pending Studies and Lab Data: Final surgical pathology Discharge Conditions/Prognosis: Stable Discharge to: Home Updated Allergies/ADRs: Allergies Allergen Reactions ??? Latex Rash ??? Other [Unclassified Drug] Rash Strawberries ??? Pcn [Penicillins] Causes multiple infections Immunizations Given this Hospitalization: There is no immunization history on file for this patient. Discharge Medications: Your Medications New Medications Dose Details docusate sodium 100 mg Cap Commonly known as: COLACE Take 1 capsule by mouth 2 times daily for 10 days. 100 mg Quantity: 20 capsule Refills: 0 ibuprofen 600 mg Tab Commonly known as: ADVIL;MOTRIN Take 1 tablet by mouth every 6 hours as needed for Pain. 600 mg Quantity: 50 tablet Refills: 0 nicotine 21 mg/24 hr Pt24 Commonly known as: NICODERM CQ Place 1 patch onto the skin daily. 1 patch Quantity: 28 patch Refills: 3 oxyCODONE 5 mg Tab Commonly known as: ROXICODONE Take 1 tablet by mouth every 4 hours as needed for Pain (Severe pain (7-10)). 5 mg Quantity: 5 tablet Refills: 0 polyethylene glycol 17 gram Pwpk Commonly known as: MIRALAX Take 17 g by mouth daily as needed. 17 g Quantity: 14 each Refills: 0 Continued medications with new dosing Dose Details acetaminophen 325 mg Tab Commonly known as: TYLENOL Take 2 tablets by mouth every 6 hours as needed for Pain. What changed: - medication strength - how much to take - reasons to take this 650 mg Quantity: 30 tablet Refills: PRN Continued medications, unchanged Dose Details amLODIPine 5 mg Tab Commonly known as: NORVASC take 1 tablet by mouth once daily Refills: 0 atorvastatin 40 mg Tab Commonly known as: LIPITOR Take 40 mg by mouth daily. 40 mg Refills: 0 Biotin 5 mg Cap Take by mouth daily. Refills: 0 buPROPion 150 mg Tablet Extended Release 24 hr Commonly known as: WELLBUTRIN XL Refills: 0 cholecalciferol (Vitamin D3) 2,000 unit Tab Take by mouth daily. Refills: 0 cyanocobalamin 500 mcg Tab Take 500 mcg by mouth daily. 500 mcg Refills: 0 metFORMIN 500 mg Tablet sr Commonly known as: GLUCOPHAGE-XR take 1 tablet by mouth daily Refills: 0 omeprazole 40 mg Cpdr Commonly known as: PriLOSEC Take 40 mg by mouth 2 times daily. 40 mg Refills: 1 tiZANidine 2 mg Tab Commonly known as: ZANAFLEX Refills: 0 traZODone 50 mg Tab Commonly known as: DESYREL Take by mouth. 1-2 tablets at HS Quantity: 90 tablet Refills: 0 triamcinolone 0.1 % Crea Commonly known as: KENALOG apply to ECZEMA ON HANDS twice a day Refills: 0 STOPPED Medications NAPROXEN ORAL Smoking Status at Discharge: History Smoking Status ??? Current Every Day Smoker ??? Packs/day: 0.50 ??? Types: Cigarettes Smokeless Tobacco ??? Never Used Instructions Given to Patient at Discharge: Patient Instructions PATIENT DISCHARGE INSTRUCTIONS [facility] Department: Follow Up Appointment: --Postoperative visit in 4-6 weeks; you will be called with the date and time. If you have not heard in several days, please call the above number. Call your doctor if you develop: --A fever over 101 degrees --Severe pain --Heavy vaginal bleeding --Increasing pain, redness, or discharge at your incision --It is normal to have light spotting from the vagina for up to 6 weeks following hysterectomy Activity level: No heavy lifting, pushing or pulling for 6 weeks, nothing greater than 10lbs. No sexual intercourse, no tampons, nothing in the vagina for 8 weeks. Diet: You may resume your regular diet. Be sure you drink plenty of fluids. Please use desmond-colace (or colace) 1-2 tablets twice daily for the entire time that you are taking pain medication to keep your bowel movements soft and regular. If you are constipated or have not had a bowel movement in 3 days, please use milk of magnesia (or miralax) as directed over the counter. Driving: Do not drive until you are off of all narcotic medications and you are not feeling pain; usually about 2 weeks. Shower/Bath: Showering is fine. Short baths are OK but you should avoid having any abdominal incision submerged for more than 10-15 minutes for the next 2 weeks. Wound Care: Your incisions are closed with dissolvable stitches and surgical glue. The glue will dissolve on its own over time - do not pick at or rub the glue. The stitches do not need to be removed- they will dissolve on their own. Pain medications include ibuprofen (Advil/Motrin), acetaminophen (Tylenol), and oxycodone ??? Please use ibuprofen 600 mg every 6 hours with food around the clock for the next several days and then after that use it only as needed. ??? You may take Tylenol (acetaminophen) over the counter as prescribed, 650mg every 6 hours as needed, for the first two days, you may want to schedule this, every 6 hours. Do not exceed 3000mg of Tylenol in any 24 hour period. You can take ibuprofen and Tylenol at the same time as the two medications work differently. ??? Please use the oxycodone every 4-6 hours as needed for pain that breaks through the ibuprofenand acetaminophen. Please take your medication exactly as prescribed. Read all instructions that come with your medication. ?? Using narcotic pain medication (such as oxycodone, hydromorphone (Dilaudid), morphine, fentanyl,or tramadol) may cause addiction. While addiction is more common in people with a personal or family history of addiction, it can occur in anyone. ?? Taking more than the prescribed amount of medication or using with alcohol or other drugs can cause you to stop breathing resulting in coma, brain damage, or . ?? Opioids (oxycodone, hydromorphone/Dilaudid, morphine, fentanyl, tramadol) can slow reaction time, cause drowsiness, or cloud judgement. It is unsafe for you to drive or operate heavy machinery while taking this medication. ?? Opioids (oxycodone, hydromorphone/Dilaudid, morphine, fentanyl, tramadol) are at risk of being diverted by anyone with access to your home. Opioids should be stored in a safe and secure place, such as a locked cabinet or safe. ?? Unused opioids (oxycodone, hydromorphone/Dilaudid, morphine, fentanyl, tramadol) should be disposed of according to the label or patient information. If there are no specific instructions, medications may be returned to a take- back location or mixed with a small amount of water and an undesirable waste substance such as coffee grounds or cat litter. General Instructions None Discharge References/Attachments None Provider Contact Information: Moise Lala MD [phone] documented in this encounter Discharge Instructions * Patient Instructions* Melody Lindo - 08/19/2017 10:53 AM EDT Images from the original note were not included. PATIENT DISCHARGE INSTRUCTIONS [facility] Department: Follow Up Appointment: --Postoperative visit in 4-6 weeks; you will be called with the date and time. If you have not heard in several days, please call the above number. Call your doctor if you develop: --A fever over 101 degrees --Severe pain --Heavy vaginal bleeding --Increasing pain, redness, or discharge at your incision --It is normal to have light spotting from the vagina for up to 6 weeks following hysterectomy Activity level: No heavy lifting, pushing or pulling for 6 weeks, nothing greater than 10lbs. No sexual intercourse, no tampons, nothing in the vagina for 8 weeks. Diet: You may resume your regular diet. Be sure you drink plenty of fluids. Please use desmond-colace (or colace) 1-2 tablets twice daily for the entire time that you are taking pain medication to keep your bowel movements soft and regular. If you are constipated or have not had a bowel movement in 3 days, please use milk of magnesia (or miralax) as directed over the counter. Driving: Do not drive until you are off of all narcotic medications and you are not feeling pain; usually about 2 weeks. Shower/Bath: Showering is fine. Short baths are OK but you should avoid having any abdominal incision submerged for more than 10-15 minutes for the next 2 weeks. Wound Care: Your incisions are closed with dissolvable stitches and surgical glue. The glue will dissolve on its own over time - do not pick at or rub the glue. The stitches do not need to be removed- they will dissolve on their own. Pain medications include ibuprofen (Advil/Motrin), acetaminophen (Tylenol), and oxycodone ??? Please use ibuprofen 600 mg every 6 hours with food around the clock for the next several days and then after that use it only as needed. ??? You may take Tylenol (acetaminophen) over the counter as prescribed, 650mg every 6 hours as needed, for the first two days, you may want to schedule this, every 6 hours. Do not exceed 3000mg of Tylenol in any 24 hour period. You can take ibuprofen and Tylenol at the same time as the two medications work differently. ??? Please use the oxycodone every 4-6 hours as needed for pain that breaks through the ibuprofenand acetaminophen. Please take your medication exactly as prescribed. Read all instructions that come with your medication. ?? Using narcotic pain medication (such as oxycodone, hydromorphone (Dilaudid), morphine, fentanyl,or tramadol) may cause addiction. While addiction is more common in people with a personal or family history of addiction, it can occur in anyone. ?? Taking more than the prescribed amount of medication or using with alcohol or other drugs can cause you to stop breathing resulting in coma, brain damage, or . ?? Opioids (oxycodone, hydromorphone/Dilaudid, morphine, fentanyl, tramadol) can slow reaction time, cause drowsiness, or cloud judgement. It is unsafe for you to drive or operate heavy machinery while taking this medication. ?? Opioids (oxycodone, hydromorphone/Dilaudid, morphine, fentanyl, tramadol) are at risk of being diverted by anyone with access to your home. Opioids should be stored in a safe and secure place, such as a locked cabinet or safe. ?? Unused opioids (oxycodone, hydromorphone/Dilaudid, morphine, fentanyl, tramadol) should be disposed of according to the label or patient information. If there are no specific instructions, medications may be returned to a take- back location or mixed with a small amount of water and an undesirable waste substance such as coffee grounds or cat litter. documented in this encounter Medications at Time of Discharge Medication Sig Dispensed Refills Start Date End Date acetaminophen (TYLENOL) 325 mg Tablet Take 2 [...] 2,000 unit Tablet Take by mouth daily. docusate sodium (COLACE) 100 mg Capsule Take 1 capsule by mouth 2 times daily for 10 days. 20 capsule 08/20/2017 08/30/2017 nicotine (NICODERM CQ) 21 mg/[address] 1 patch onto the skin daily. 28 patch 3 08/20/2017 04/08/2023 oxyCODONE (ROXICODONE) 5 mg Tablet Take 1 tablet by mouth every 4 hours as needed for Pain (Severe pain (7-10)). 5 tablet 08/20/2017 09/01/2017 polyethylene glycol (MIRALAX) 17 gram Powder in Packet Take 17 g by mouth daily as needed. 14 each 08/20/2017 09/22/2017 buPROPion (WELLBUTRIN XL) 150 mg Tablet Extended [...] 04/02/2011 04/08/2023 documented as of this encounter Progress Notes * Carmen Miguel RN - 08/20/2017 10:27 AM EDT The patient has met discharge criteria per policy. Discharge instruction reviewed and patient discharged to responsible adult. Patient???s pain level has been assessed and patient states that his/her level is tolerable at thistime. The After Visit Summary (AVS) and accompanying hand-outs have been reviewed with the patient; the patient verbalizes understanding at this time. Opportunity for clarification provided. All new medications have been reviewed with the patient and the appropriate hand-outs have been given to the patient. Reportable sign and symptoms have been reviewed with patient.\ Patient is leaving the floor via wheelchair, accompanied by her family. * Melody Lindo - 08/20/2017 6:18 AM EDT Images from the original note were not included. Gynecology Daily Progress Note ID: Nikia Denton is an 51 y.o. woman with PMHx of HTN, HLD, fibromyalgia, current smoker, GERD,anxiety/depression, BERTA on CPAP, Eczema, alopecia, obesity, glucose intolerance, and LBBB, who is post operative day #1 s/p total laparoscopic hysterectomy, bilateral salpingectomy and diagnostic cystoscopy for perimenopausal abnormal uterine bleeding. Interval Events: - Benavidez catheter removed this morning at 0600 hrs, patient has not yet voided Subjective: Nikia Denton reports feeling lower abdominal cramping and gas pain. Pain is well controlled with Toradol, Tylenol, and occasional oxycodone. She ate a turkey sandwich for dinner and has been drinking water without nausea or vomiting. Benavidez removed at 0600 hrs; the patient has not yet voided. Is ambulating without lightheadedness or dizziness. ROS: in addition to above, denies chest pain, shortness of breath, fever, chills, and leg pain. Allother systems reviewed and are otherwise negative. Physical Exam: Last value Range last 24 hrs Temperature Temp: 36.9 ??C (98.4 ??F) Temp: [36.3 ??C (97.3 ??F)-37.2 ??C (99 ??F)] Heart Rate Heart Rate: 83 Heart Rate: [57-92] Blood Pressure BP: 103/59 BP: (103-148)/(57-83) Respiratory Rate Resp: 16 Resp: [7-21] SpO2 SpO2: 96 % SpO2: [95 %-100 %] Art BP BP (Arterial Line): -- UOP: 75-300mL/ hour (recorded over 8 hours). Physical Exam Gen: NAD, resting comfortably in bed. Cardio: RRR, no MRG Pulm: CTAB, no wheezes or crackles. Abd: normoactive bowel sounds, soft, obese, non-distended, non-tender to palpation. Incision: 3 laparoscopic port incisions closed with subcuticular sutures and dermabond all C/D/I Ext: warm, well-perfused, no edema bilaterally, SCDs in place and running. : Minimal vaginal bleeding noted on desmond-pad. Laboratory (Last 24 Hours): No AM labs. Assessment and Plan: Nikia Denton is an 51 y.o. woman s/p above procedure. Patient is doing very well. Her benavidez catheter was removed and patient is due to void at 10:00 hrs. Will encourage PO hydration and maintain IVF until that time. Of note, the cynthiat has short term disability paperwork which we will bring to our clinic team to complete. Discharge home pending voiding trial. Please see s teva-based assessment below. Neuro/Pain Control: History of fibromyalgia. Adequate pain control -- Toradol --> ibuprofen, Tylenol, oxycodone, and IV Dilaudid prn. Cardiac/Heme: History of HTN, HLD and LBBB. Vital signs wnl. Currently normotensive and hemodynamically stable -- hold home amlodipine and atorvastatin Pulmonary: Current smoker until 2 days prior. History of BERTA on CPAP. Adequate o2 sats on RA while awake and CPAP overnight. -- encourage incentive spirometry. -- 21 mg nicotine patch ordered -- CPAP prn and when asleep; patient has home machine Gastrointestinal: History of GERD. Denies nausea, vomiting. Tolerating sips of clear. -- advance diet as tolerated, CHO diet ordered. -- zofran prn nausea. -- colace and Miralax prn constipation. -- Protonix daily Genitourinary: Adequate UOP, benavidez removed at 06:00 hrs. -- strict I/Os. -- Follow-up on voiding trial, due to void at 10:00 hrs Fluid/ Electrolytes: Tolerating PO intake. -- LR at 100cc/hour. -- discontinue intravenous fluid when taking adequate PO. ID: Received 2g Ancef preoperatively. Afebrile. -- no current concerns Endocrine: History of glucose intolerance. S/p Dexamethasone 8 mg preoperatively. Blood sugars havebeen within normal limits and has not required SSI. -- holding home metformin -- SSI started Psychiatry: History of anxiety/depression. -- continue home Wellbutrin and Trazodone prn Gynecology: s/p above procedure for perimenopausal abnormal uterine bleeding. -- Postoperative follow-up in 4-6 weeks. Prophylaxis: -- incentive spirometry. -- encourage ambulation. -- SCDs. Disposition: -- Ready for discharge pending voiding trial Code Status: Full Code Patient discussed with attending physician, Dr. Toth. Melody Lindo MD PGY-1 08/20/17 PRACTICE DIRECTOR Service Pager: [phone] Associated attestation - Kody Toth MD - 08/20/2017 8:09 AM EDT I saw the patient, discussed her care with the resident team on daily rounds, and agree with the assessment and plan as documented. Kody Toth MD 08/20/2017 8:09 AM * Krista Whaley RCP - 08/20/2017 5:13 AM EDT Patient was compliant with home CPAP usage. * Melisa Wilkerson MD - 08/19/2017 2:04 PM EDT Gynecology Post operative Progress Note ID: Nikia Denton is an 51 y.o. woman with PMHx of HTN, HLD, fibromyalgia, current smoker, GERD,anxiety/depression, BERTA on CPAP, Eczema, alopecia, obesity, glucose intolerance, and LBBB, who is post operative day #0 s/p total laparoscopic hysterectomy, bilateral salpingectomy an diagnostic cystoscopy for perimenopausal abnormal uterine bleeding. Intraoperative Events: -EBL 50mL -Findings: 1. Normal appearing uterus, fallopian tubes and ovaries 2. Normal appearing bladder, patent bilateral ureteral orifices Subjective: Nikia Denton reports she has 8/10 crampy pelvic pain, for which she just took some po pain medication which has yet to kick in. She has tolerated sips of ike kaitlin without difficulty. Has not ambulated. Benavidez remains in place. Has a throat tickle in addition to some rectal pressure and gas discomfort. ROS: in addition to above, denies chest pain, shortness of breath, fever, chills, lightheadedness, dizziness, and leg pain. All systems reviewed and are otherwise negative. Physical Exam: Last value Range last 24 hrs Temperature Temp: 36.3 ??C (97.3 ??F) Temp: [36.3 ??C (97.3 ??F)-36.6 ??C (97.9 ??F)] Heart Rate Heart Rate: 57 Heart Rate: [57-79] Blood Pressure BP: 128/65 BP: (128-136)/(65-83) Respiratory Rate Resp: 21 Resp: [16-21] SpO2 SpO2: 99 % SpO2: [98 %-99 %] Art BP BP (Arterial Line): -- I/O this shift: In: 900 [I.V.:900] Out: 100 [Urine:50; Blood:50] UOP: 50-60mL/ hour (recorded over 4 hours). Physical Exam Gen: NAD, sleeping and easily arousable. CPAP mask on head. Cardio: RRR, no MRG Pulm: CTAB, no wheezes or crackles. Abd: normoactive bowel sounds, soft, obese, non-distended, mildly tender to palpation. Incision: 3 laparoscopic port incisions closed with subcuticular sutures and dermabond all C/D/I Ext: warm, well-perfused, no edema bilaterally, SCDs in place and running. : Benavidez catheter in place draining clear yellow yellow urine. \ Laboratory (Last 24 Hours): No AM labs. Assessment and Plan: Nikia Denton is an 51 y.o. woman s/p above procedure. Patient is doing very well in the immediate postoperative period. Please see systems-based assessment below. Neuro/Pain Control: History of fibromyalgia. Adequate pain control -- Toradol --> ibuprofen, Tylenol, oxycodone, and IV Dilaudid prn. -- Home Trazodone and Wellbutrin Cardiac/Heme: History of HTN, HLD and LBBB. Vital signs wnl. Currently normotensive and hemodynamically stable -- hold home amlodipine and atorvastatin Pulmonary: Current smoker until 2 days prior. History of BERTA on CPAP. Adequate o2 sats on room air -- wean to maintain saturation >92%. -- encourage incentive spirometry. -- 21 mg nicotine patch ordered -- CPAP prn and when asleep; patient has home machine Gastrointestinal: History of GERD. Denies nausea, vomiting. Tolerating sips of clear. -- advance diet as tolerated, CHO diet ordered. -- zofran prn nausea. -- colace and Miralax prn constipation. -- Protonix daily Genitourinary: Adequate UOP, draining clear yellow urine. -- strict I/Os. -- discontinue benavidez catheter when ambulatory. Fluid/ Electrolytes: Tolerating PO intake. -- LR at 100cc/hour. -- discontinue intravenous fluid when taking adequate PO. ID: Received 2g Ancef preoperatively. Afebrile. -- no current concerns Endocrine: History of glucose intolerance. S/p Dexamethasone 8 mg. -- holding home metformin -- SSI started Psychiatry: History of anxiety/depression. -- continue home Wellbutrin and Trazodone prn Gynecology: s/p above procedure for perimenopausal abnormal uterine bleeding. -- Postoperative follow-up in 4-6 weeks. Prophylaxis: -- incentive spirometry. -- encourage ambulation. -- SCDs. Disposition: Continues to require inpatient hospitalization for routine post-op care Code Status: Full Code Will DWA Melody Werner MD PGY-4 08/19/17 PRACTICE DIRECTOR Service Pager: [phone] * Kristy Deal RN - 08/19/2017 11:22 AM EDT Lunch coverage at this time. Pt c/o nausea and having apnea. CPAP currently being checked by [facility] will place on patient when nausea subsides. Additional zofran 4 mg IV given for nausea. Dr. Juana Knott rounded and requested that an additional 15 mg of IV toradol be given also as unable to tolerate narcotics at this time with apnea. Gabapentin also ordered for when nausea subsides. * Noreen Sawant RN - 08/19/2017 10:40 AM EDT Pt arrived to PACU, attached to monitors, alarms on, settings appropriate for pt. No nausea or painnoted. Report given to break coverage RN. Per report pt experienced continuous nausea- anesthesia at bedside to access, hesitant to give narcotics d/t BERTA, additional 15mg of Toradol ordered per Dr. Knott. 1215 respiratory at bedside to setup pt CPAP. Pt meets recovery criteria at 1300. Report called to TREVA Cadena. documented in this encounter H&P Notes * Melody Lindo - 08/19/2017 6:38 AM EDT Human Services Care Specialist Inpatient Admission Interval Note I have reviewed the pre-procedure H&P completed by Drs. Dawson and Navneet on 08/08/17 (x) Condition unchanged since H&P originally performed. See interval note below. Interval Note: S: Nikia Denton feels well today. No complaints / concerns. Denies any changes to her past medical or past surgical history. No new medications or allergies. She states that Penicillin does not work for her, it causes her to have other infections, such as yeast or bladder infections. Presentstoday with , [facility], and mother, Thais. Of note, she has history of BERTA and has home CPAP with her. Also smokes approximately 1/2 PPD but has not had a cigarette since Friday evening. O: BP 136/83 Pulse 79 Temp 36.6 ??C (97.9 ??F) (Temporal) Resp 16 Ht 167.6 cm (5' 6) Wt 114.3 kg (252 lb) SpO2 98% BMI 40.67 kg/m2 Gen: Sitting in bed, appears comfortable CV: Normal rate, regular rhythm, normal S1 and S2, no murmurs / rubs / gallops Resp: Clear to auscultation bilaterally, no wheezes / crackles Abd: Soft, nontender, nondistended Ext: Warm, well perfused, non-tender *remainder of exam deferred to the OR A/P: 51 y.o. female presents for planned total laparoscopic hysterectomy and bilateral salpingectomy for abnormal uterine bleeding and menorrhagia. No interval changes in history or physical exam. -- POCT urine : ordered, results pending -- Surgical consent reviewed with patient and placed in the chart; previously signed 08/08/2017. -- Antibiotics: 2g cefazolin preoperatively -- VTE prophylaxis: SCDs -- Proceed to OR for planned procedure. Melody Lindo MD, PGY1 08/19/2017 Associated attestation - Kody Toth MD - 08/19/2017 7:26 AM EDT I saw the patient preoperatively, reviewed her history and physical exam, discussed the plan of care with Drs. Lindo and Karen and agree with the assessment and plan as documented above. Kody Toth MD 08/19/2017 7:26 AM documented in this encounter Miscellaneous Notes * Plan of Care - Calista Bhandari RN - 08/20/2017 1:02 AM EDT Problem: Patient Care Overview Goal: Plan of Care Review Outcome: Ongoing (Interventions Implemented as Appropriate) 08/20/17 0104 Coping/Psychosocial Plan Of Care Reviewed With patient Plan of Care Review Progress progress toward functional goals as expected S/P: Laparoscopic hysterectomy / BSO. Lap sites x3 Outcome Summary: VSS. Lap sites x3 with Dermabond. CDI. Neda PO. Ambulating frequently. Unable to void after benavidez catheter D/Cd during day shift 08/19/2017 - MD notified benavidez cath reinserted and patient much more comfortable. UOP lg amt clear yellow in catheter bag; will D/C in AM. Scant sanguinous drainage desmond pad/vaginal. Plan: ongoing monitoring/assessments. I/O. Heating pad for abd. Pain tx. D/C benavidez in AM - pt requests 0600 due to initial difficulty voiding and the associated discomfort. INDIVIDUALIZED FALL PREVENTION: Assistance: Assisted with bed mobility to find comfortable position, will assist when OOB as needed. Supervision: Stand-by assist with initial ambulation and supervised activity as needed. Surveillance: Continuous pulse ox, call coy within reach, purposeful rounding * Plan of Care - Nadia Schofield RN - 08/19/2017 5:55 PM EDT Problem: Patient Care Overview Goal: Plan of Care Review Outcome: Ongoing (Interventions Implemented as Appropriate) 08/19/17 1748 Coping/Psychosocial Plan Of Care Reviewed With patient Plan of Care Review Progress improving OUTCOME EVALUATION NOTE: OUTCOME SUMMARY: Pt arrived from PACU post-operatively. Pt A+O x4. VSS. C/o cramping/gas like pain. PRN oxycodone administered (see MAR) with reportedly positive effect. Scheduled Toradol administered. Minimal spotting on desmond pad. Ambulating after urinary catheter removed. Reported pain had improved after walk. Spouse and mother visiting towards end of shift. Will continue ongoing assessment. PLAN MOVING FORWARD: Pain management Ensure safe mobilization/transfers Voiding trail Discharge planning INDIVIDUALIZED FALL PREVENTION INTERVENTIONS: Patient-specific fall risk factors per assessment: [current deficits]: Pain, analgesia, lines, unfamiliar environment, recent surgery Assistance [level of assistance required for transfers and ambulation]: SBA Supervision [direct monitoring required during toileting and ADLs]: Eyes on Surveillance [continuous indirect monitoring]: Pulse oximetry, purposeful rounding Patient-specific fall prevention interventions for sensory deficits provided, if applicable: [X] No CPG GOAL OUTCOME EVALUATION: Goal: Individualization & Mutuality Outcome: Ongoing (Interventions Implemented as Appropriate) 08/19/17 1748 Mutuality/Individual Preferences What Anxieties, Fears or Concerns Do You Have About Your Health or Care? Pain management What Questions Do You Have About Your Health or Care? None What Information Would Help Us Give You More Personalized Care? None Goal: Fall Prevention-Safe Patient Handling Outcome: Ongoing (Interventions Implemented as Appropriate) 08/19/17 1321 08/19/17 1500 Hair Fall Risk History of Falling -- 0 Secondary Diagnosis -- 15 Ambulatory Aids -- 0 Intravenous Therapy/Heparin/Saline Lock -- 20 Gait/Transferring -- 0 Mental Status -- 0 Score -- 35 OTHER Hair Fall Risk -- Med Restraint Interventions Safety Promotion/Fall Prevention -- activity supervised;fall prevention program maintained;nonskid shoes/slippers when out of bed;safety round/check completed Positioning Body Position -- independent Activity Activity Type activity adjusted per tolerance -- Goal: Infection Control Outcome: Ongoing (Interventions Implemented as Appropriate) 08/19/17 1321 08/19/17 1341 08/19/17 1500 Safety Interventions Isolation Precautions -- -- standard precautions maintained Infection Prevention environmental surveillance performed;rest/sleep promoted;single patient room provided -- -- Coping Strategies Supportive Measures -- active listening utilized;goal setting facilitated;positive reinforcement provided;problem solving facilitated;self- care encouraged;verbalization of feelings encouraged -- Goal: Discharge Needs Assessment Outcome: Ongoing (Interventions Implemented as Appropriate) 08/19/17 1748 Discharge Needs Assessment Concerns To Be Addressed no discharge needs identified Readmission Within The Last 30 Days no previous admission in last 30 days Provider Choice List(s) Given no Equipment Needed After Discharge none Discharge Disposition home or self-care Activity/Self Care Review of Systems Equipment Currently Used at Home none Living Environment Transportation Available car;family or friend will provide Goal: Interdisciplinary Rounds/Family Conf Outcome: Ongoing (Interventions Implemented as Appropriate) 08/19/17 3398 Interdisciplinary Rounds/Family Conf Participants family;nursing;physician * Op Note - Melisa Wilkerson MD - 08/19/2017 11:26 AM EDT Operative Note ?? Patient Name: Nikia Denton : [id number] MR#: [id number] ?? Case Date: 08/19/2017 ?? Surgeon: Surgeon(s) and Role: * Kody Toth MD - Primary * Melisa Wilkerson MD - PGY-4 * Melody Lindo MD - PGY-1 ?? Preoperative diagnosis: perimenopausal AUB ?? Postoperative diagnosis: perimenopausal AUB ?? Procedure(s): 1. Total laparoscopic hysterectomy, bilateral salpingectomy 2. Diagnostic cystoscopy ?? Anesthesia: General ?? Findings: 1. Normal appearing uterus, fallopian tubes and ovaries 2. Normal appearing bladder, patent bilateral ureteral orifices ?? Complications: None ? Intake: 900 mL crystalloid ?? Output: Estimated Blood Loss: 50 mL Urine Output: 50 mL of cloudy urine ?? Drains: Benavidez catheter ?? Specimens removed during surgery: ?? Order Name Source Comment Collection Info Order Time SPECIMEN TO PATHOLOGY ? perimenopausal AUB Uterus, cervix and bilateral fallopian tubes No Excision 08/19/2017 8:59 AM Time removed from patient: 8:58 AM ? Disposition: awakened from anesthesia, extubated and taken to the recovery room in a stable condition, having suffered no apparent untoward event. ?? Condition: doing well without problems ?? Antibiotics: Ancef 2 gm IV x 1 DVT PPX: SCDs Complications: None History of Present Illness / Surgical Indications: Nikia Denton is a 51 y.o. with AUB and benign EMB in setting of irregular menstrual cycles. She was offered medical management with progestins or surgical management by hysterectomy, and she desired the latter. Her PMH is notable for obesity, BERTA, prediabetes in metformin. A consent hadbeen signed in the office previously. Procedure: The patient was brought to the operating room with IV fluids running. General anesthesia was administered without incident. She was positioned in the dorsal lithotomy position in yellow [facility] stirrups.She was prepped and draped in the usual sterile fashion including a vaginal prep and a beanvidez catheter was placed. A time-out was performed with all team members in agreement to proceed. ? A speculum was placed, single tooth tenaculum placed on the anterior cervical lip and the uterus was sounded to 8 cm. A V-care uterine manipulator was placed in the usual fashion with the intrauterine balloon inflated. Tenaculums were removed. Gloves were changed. ? .25% bupivicaine was infiltrated into the infraumbilical skin fold and a 5 mm horizontal skin incision was made. A 5 mm Optiview trochar was used to enter the abdomen under direct visualization. Pneumoperitoneum to 15 mmHg was achieved. Two 12 mm lower quadrant ports were placed in right and left lower quadrants under direct visualization. Intraabdominal findings as above. ?? Steep trendelenburg was obtained. Bilateral ureters were seen far apart. With the Harmonic device, bilaterally the fimbriated end of fallopian tube was elevated, salpingectomy was performed to the level of the uterine cornua and the tubes were removed out of the abdomen for permanent pathology. Bilaterally, the uteroovarian ligaments and the round ligaments were divided in the mid-portion and serially desiccated and cut to the uterus. With the uterus and adnexa retracted to the opposite side, bilaterally the broad ligaments were sequentially clamped and cut. The vesicouterine peritoneum was opened and the bladder was dissected off the lower uterine segment and upper vagina. The same was repeated on the right side without difficulty. Then the uterine vessels were identified along the uterus, and were dessicated and cut. Harmonic was used to perform a colpotomy starting on the anterior aspect of the cervix and this incision was carried in a circumferential manner. The specimen attached to the V-care manipulator was delivered out of the vagina intact. The cuff was closed in 2 segments with Endostitch with V-lock suture in 2 segments with placement of one laprotie. Good hemostasis of the pedicles were noted. Bilateral ovaries appeared intact. Bilateral ureters seen vermiculating. All instruments removed and 12 mmports closed with Cristofer-Marilyn using 0-Vicryl x 2. All skin closed with 4-0 Monocryl and dressedwith Dermabond. Benavidez removed, and diagnostic cystoscopy performed with bilateral ureteral jets seen. Benavidez catheter was replaced. ?? The sponge, sharps and instrument counts were correct times two. All specimens were sent for permanent pathology. EBL was 50 ml. There were no complications. ? Dr. Toth present for entire surgery, MELISA WILKERSON MD PGY-4 Associated attestation - Kody Toth MD - 08/22/2017 11:47 AM EDT Attestation: Case Date: 08/19/2017 I was present and I participated during the entire procedure (does not need to include opening and closing). Kody Toth MD 08/22/2017 * Brief Op Note - Kody Toth MD - 08/19/2017 10:11 AM EDT Brief Operative Note Patient Name: Nikia Denton : [id number] MR#: [id number] Case Date: 08/19/2017 Surgeon: Surgeon(s) and Role: * Kody Toth MD - Primary * Melisa Wilkerson MD * Melody Lindo MD Preoperative diagnosis: perimenopausal AUB Postoperative diagnosis: perimenopausal AUB Procedure(s): 1. Total laparoscopic hysterectomy, bilateral salpingectomy 2. Diagnostic cystoscopy Anesthesia: General Findings: 1. Normal appearing uterus, fallopian tubes and ovaries 2. Normal appearing bladder, patent bilateral ureteral orifices Complications: None Intake: 900 mL crystalloid Output: Estimated Blood Loss: 50 mL Urine Output:: 50 mL Other Output: (no other output recorded) Drains: Benavidez catheter Specimens removed during surgery: Order Name Source Comment Collection Info Order Time SPECIMEN TO PATHOLOGY perimenopausal AUB Uterus, cervix and bilateral fallopian tubes No Excision 08/19/2017 8:59 AM Time removed from patient: 8:58 AM Disposition: awakened from anesthesia, extubated and taken to the recovery room in a stable condition, having suffered no apparent untoward event. Condition: doing well without problems Attestation: Case Date: 08/19/2017 I was present and I participated during the entire procedure (does not need to include opening and closing). (Please see the Surgical Encounter Summary for any Implant and Specimen details pertinent to this patient.) documented in this encounter Plan of Treatment Not on file documented as of this encounter Procedures Procedure Name Priority Date/Time Associated Diagnosis Comments POCT GLUCOSE Routine 08/20/2017 7:18 AM EDT POCT GLUCOSE Routine 08/20/2017 3:48 AM EDT POCT GLUCOSE Routine 08/19/2017 11:52 PM EDT POCT GLUCOSE Routine 08/19/2017 8:10 PM EDT POCT GLUCOSE Routine 08/19/2017 3:40 PM EDT CYSTO,CYSTOURETHROSC OPY, DIAGNOSTIC Routine 08/19/2017 10:12 AM EDT Morbid obesity Tobacco use disorder Essential hypertension BERTA (obstructive sleep apnea) Abnormal uterine bleeding SURGICAL PATHOLOGY REPORT Routine 08/19/2017 8:59 AM EDT SPECIMEN TO PATHOLOGY Routine 08/19/2017 8:59 AM EDT LAPAROSCOPY, TOTAL HYST, UTERUS<250GMS, REM TUBE &/OR OVARY Routine 08/19/2017 8:25 AM EDT Morbid obesity Tobacco use disorder Essential hypertension BERTA (obstructive sleep apnea) Abnormal uterine bleeding CYSTO, CYSTOURETHROSCOPY, DIAGNOSTIC (WRVU 1.53) 08/19/2017 7:29 AM EDT Morbid obesity Tobacco use disorder Essential hypertension BERTA (obstructive sleep apnea) Abnormal uterine bleeding LAPAROSCOPY, TOTAL HYST, UTERUS<250GMS, REM TUBE &/OR OVARY (WRVU 15) 08/19/2017 7:29 AM EDT Morbid obesity Tobacco use disorder Essential hypertension BERTA (obstructive sleep apnea) Abnormal uterine bleeding POCT URINE Routine 08/19/2017 7:21 AM EDT POCT GLUCOSE Routine 08/19/2017 6:26 AM EDT WASHERY ENGINEER SCAN 08/19/2017 12:00 AM EDT documented in this encounter Results * POCT Glucose (08/20/2017 7:18 AM EDT) Glucose, POC 113 65 - 199 mg/dL [facility] Comment: Supplemental ranges: <140 mg/dL before meals <180 mg/dL all other times of the day Blood specimen (specimen) 08/20/2017 7:18 AM EDT 08/20/2017 7:18 AM EDT Kody Toth MD POINT OF CARE TEST Melonie QUIÑONES [facility] [place] [address] * POCT Glucose (08/20/2017 3:48 AM EDT) Glucose, POC 116 65 - 199 mg/dL [facility] Comment: Supplemental ranges: <140 mg/dL before meals <180 mg/dL all other times of the day Blood specimen (specimen) 08/20/2017 3:48 AM EDT 08/20/2017 3:48 AM EDT Kody Toth MD POINT OF CARE TEST O NURIA [facility] [place] [address] * POCT Glucose (08/19/2017 11:52 PM EDT) Glucose, POC 117 65 - 199 mg/dL [facility] Comment: Supplemental ranges: <140 mg/dL before meals <180 mg/dL all other times of the day Blood specimen (specimen) 08/19/2017 11:52 PM EDT 08/19/2017 11:52 PM EDT Kody Toth MD POINT OF CARE TEST O NURIA Performing Organization Address [facility] Co de Phone Number [facility] [place] [address] * POCT Glucose (08/19/2017 8:10 PM EDT) Glucose, POC 147 65 - 199 mg/dL [facility] Comment: Supplemental ranges: <140 mg/dL before meals <180 mg/dL all other times of the day Blood specimen (specimen) 08/19/2017 8:10 PM EDT 08/19/2017 8:10 PM EDT Kody Toth MD POINT OF CARE TEST O NURIA Performing Organization Address [facility] Co de Phone Number [facility] [place] [address] * POCT Glucose (08/19/2017 3:40 PM EDT) Glucose, POC 139 65 - 199 mg/dL [facility] Comment: Supplemental ranges: <140 mg/dL before meals <180 mg/dL all other times of the day Blood specimen (specimen) 08/19/2017 3:40 PM EDT 08/19/2017 3:40 PM EDT Kody Toth MD POINT OF CARE TEST O RDERAJESSENIA Performing Organization Address [facility] Co de Phone Number [facility] [place] [address] * Surgical Pathology Report (08/19/2017 8:59 AM EDT) Final Diagnosis [id number] ? Location: [facility]; 16; A The signing pathologist has (i) examined the relevant preparation(s) for the specimen(s) and (ii) rendered or confirmed the diagnosis(es). . ?Surgical Pathology DIAGNOSIS Uterus, cervix and bilateral fallopian tubes, hysterectomy and bilateral salpingectomy: - Benign cervix. - Secretory endometrium. - Adenomyosis. - Leiomyomas. - Benign fallopian tubes with paratubal cysts. Electronically signed by: ??Ethan BLUE, Shruthi Orozco Verified: ??08/22/2017 ?Pathologist Performed at: ??-[facility] Dept. of Pathology, [place], [place] CLINICAL INFORMATION Specimen Submitted: A - Uterus, cervix and bilateral fallopian tubes Clinical History: Perimenopausal AUB SPECIMEN PROCESSING A - Labeled/Fixative: uterus, cervix, and bilateral fallopian tubes, fresh. Qty/Size/Weight: multiple, 8.7 x 6.2 x 4.3 cm, 115 g. (overall). Specimen Description: ??intact uterus with two separate fallopian tubes. UTERUS AND CERVIX Serosa: vieira, smooth and glistening. Endometrium: averages 0.1 cm, is slightly hemorrhagic and is without thickening, masses or polyps. Myometrium: averages 2.5 cm in thickness and contains 5 light-vieira, firm, well- circumscribed nodules, up to 1.8 cm. Cervix: the ectocervix is smooth and glistening and has an unremarkable endocervical junction without masses or ulcerations. OVARIES AND FALLOPIAN TUBES One tube: 5.5 X 0.7 cm and covered by a smooth, glistening serosa and multiple paratubal cysts up to 0.7 cm in greatest dimension. Other tube: 7.0 x 0.8 cm and covered by a smooth, glistening serosa and multiple paratubal cysts up to 0.9 cm in greatest dimension. SECTIONS/PROCESSI NG: (1) one fallopian tube; (2) other fallopian tube; (3) posterior cervix; (4) anterior cervix; (5) posterior endomyometrium and myometrial nodule; (6) anterior endomyometrium; (7-8) myometrial nodules. (R8) nsm 08/22/2017 10:10 AM EDT [facility] Uterine Corpus 08/19/2017 8: 59 AM EDT 08/19/2017 8:59 AM EDT Kody Toth MD PATHOLOGY/CYTOLOGY O RDALVERTO Performing Organization Address City/[facility] Co de Phone Number [facility] [place] [place] [address] * Specimen to Pathology (08/19/2017 8:59 AM EDT) AP Specimen 08/19/2017 8:59 AM EDT 08/19/2017 8:59 AM EDT Narrative [facility] - 08/19/2017 8:59 AM EDT Specimen requisition ordered. ??Separate Pathology report to follow Kody Toth MD PATHOLOGY/CYTOLOGY O NURIA Performing Organization Address [facility] Co de Phone Number [facility] [place] [place] [address] * POCT urine (08/19/2017 7:21 AM EDT) POC Urine HCG Negative Negative - Negative POC Control Internal Controls Acceptable Urine specimen (specimen) 08/19/2017 7:21 AM EDT Kody Toth MD POINT OF CARE TEST O RDERAJESSENIA * POCT Glucose (08/19/2017 6:26 AM EDT) Glucose, POC 136 65 - 199 mg/dL [facility] Comment: Supplemental ranges: <140 mg/dL before meals <180 mg/dL all other times of the day Blood specimen (specimen) 08/19/2017 6:26 AM EDT 08/19/2017 6:26 AM EDT Kody Toth MD POINT OF CARE TEST O NURIA Performing Organization Address [facility] Co de Phone Number [facility] [place] [place] [address] * SCAN DOC: WASHERY ENGINEER (08/19/2017 12:00 AM EDT) Anatomical Region Laterality Modality Other Narrative 08/19/2017 12:00 AM EDT Ordered by an unspecified provider. Scanning Provider MEDIA MGR SCAN EXT O RDR/RSLT documented in this encounter Visit Diagnoses Diagnosis Abnormal uterine bleeding- Primary Unspecified disorder of menstruation and other abnormal bleeding from female genital tract Morbid obesity Tobacco use disorder Hypertension Unspecified essential hypertension BERTA (obstructive sleep apnea) Obstructive sleep apnea (adult) (pediatric) Smokes 1/2 pack a day or less Tobacco use disorder BERTA on CPAP Obstructive sleep apnea (adult) (pediatric) Morbid obesity with BMI of 40.0-44.9, adult Morbid obesity Glucose intolerance (impaired glucose tolerance) Impaired glucose tolerance test Chronic anxiety with deprressed mood Anxiety state, unspecified documented in this encounter Administered Medications Inactive Administered Medications - up to 3 most recent administrations Medication Order MAR Action Action Date Dose Rate Site acetaminophen (TYLENOL) tablet 1,000 mg 1,000 mg, Oral, ONCE, 1 dose, On Fri08/19/17 at 0645, Day of Surgery (Day of Procedure), Routine Given 08/19/2017 6:45 AM EDT 1,000 mg acetaminophen (TYLENOL) tablet 650 mg 650 mg, Oral, EVERY 6 HOURS PRN, Starting on Fri08/19/17 at 1037, Until Fri08/20/17 at 1235, Pain, - If ordered with other PRN pain medications give Ibuprofen first, then acetaminophen, then additional agents according to the pain scale. - Not to exceed 4g in 24 hours, Routine Given 08/20/2017 10:05 AM EDT 650 mg Given 08/20/2017 4:06 AM EDT 650 mg Given 08/19/2017 9:47 PM EDT 650 mg buPROPion (WELLBUTRIN XL) XL tablet 150 mg 150 mg, Oral, DAILY, First dose on Fri08/20/17 at 0900, Until Discontinued, DO NOT CRUSH OR OPEN, Routine Given 08/20/2017 8:26 AM EDT 150 mg dextrose 50% IV syringe 25-50 mL 25-50 mL (12.5-25 g), Intravenous, EVERY 1 HOUR PRN, Starting on Fri08/19/17 at 1400, Until Fri08/20/17 at 1235, Low blood sugar, For BG 50-70: 120 mL Juice or Regular (not diet) soda OR 12.5 gram (25 mL) Dextrose 50% IV OR, if no IV access, 1 mg Glucagon IM. Recheck BG in 30 minutes. May repeat juice, dextrose or glucagon once per episode For BG less than 50: 240 mL Juice or Regular (not diet) soda OR 25 grams (50 mL) Dextrose 50% IV OR, if no IV access, 1 mg Glucagon IM. Recheck BG in 30 minutes. May repeat juice, dextrose, or glucagon once per episode. To avoid extravasation, push Dextrose 50% SLOWLY (3 mL over 1 minute) in a patent, running IV, preferably a central line. For persistent hypoglycemia, consider longer-acting treatment for the duration of the active insulin., Routine docusate sodium (COLACE) capsule 100 mg 100 mg, Oral, 2 TIMES DAILY, First dose on Fri08/19/17 at 1345, Until Discontinued, Routine Given 08/20/2017 8:26 AM EDT 100 mg Given 08/19/2017 9:46 PM EDT 100 mg Given 08/19/2017 1:42 PM EDT 100 mg gabapentin (NEURONTIN) capsule 600 mg 600 mg, Oral, ONCE, 1 dose, On Fri08/19/17 at 1130, PACU Recovery, STAT Given 08/19/2017 12:54 PM EDT 600 mg glucagon (human recombinant) injection SolR 1 mg 1 mg, Intramuscular, EVERY 1 HOUR PRN, Starting on Fri08/19/17 at 1400, Until Fri08/20/17 at 1235, Low blood sugar, For BG 50-70: 120 mL Juice or Regular (not diet) soda OR 12.5 gram (25 mL) Dextrose 50% IV OR, if no IV access, 1 mg Glucagon IM. Recheck BG in 30 minutes. May repeat juice, dextrose or glucagon once per episode For BG less than 50: 240 mL Juice or Regular (not diet) soda OR 25 grams (50 mL) Dextrose 50% IV OR, if no IV access, 1 mg Glucagon IM. Recheck BG in 30 minutes. May repeat juice, dextrose, or glucagon once per episode. To avoid extravasation, push Dextrose 50% SLOWLY (3 mL over 1 minute) in a patent, running IV, preferably a central line. For persistent hypoglycemia, consider longer-acting treatment for the duration of the active insulin., Routine HYDROmorphone (DILAUDID) injection 0.2-0.4 mg 0.2-0.4 mg, Intravenous, EVERY 5 MIN PRN, Starting on Fri08/19/17 at 1010, Until Fri08/19/17 at 1314, Pain, Give 0.2 mg every 5 minutes PRN for mild to moderate pain (1-5) Give 0.4 mg every 5 minutes PRN for moderate to severe pain (6-10). Hold for respiratory rate less than 10 per minute. Maximum dose 4 mg over one hour. If multiple pain medications are ordered, start with hydromorphone or morphine and use fentanyl for breakthrough pain., PACU Recovery, Routine Given 08/19/2017 12:01 PM EDT 0.2 mg insulin lispro (HumaLOG) VIAL injection 1-4 Units 1-4 Units, Subcutaneous, EVERY 4 HOURS SCHEDULED, First dose on Fri08/19/17 at 1600, Until Discontinued, CORRECTION BOLUS Sensitive to insulin lean patient or total daily dose of all insulin needed to achieve glycemic control less than 30 units BG 140 - 160 Give 1 unit BG 161 - 200 Give 2 units BG 201 - 240 Give 3 units BG greater than 240, give 4 units and recheck BG in 2 hours. If less than 240 after two hours, give no insulin and resume prior schedule. If BG remains greater than 240, repeat 4 units (no more than three times) & call for new basal insulin orders. DO NOT hold if NPO, unless specifically told to do so., Routine ketorolac (TORADOL) injection 15 mg 15 mg, Intravenous, EVERY 6 HOURS, 5 doses, First dose on Fri08/19/17 at 1100, Last dose on Fri08/20/17 at 1000, Routine Given 08/20/2017 4:04 AM EDT 15 mg Given 08/19/2017 9:46 PM EDT 15 mg Given 08/19/2017 3:40 PM EDT 15 mg lactated Ringers infusion 1,000 mL 1,000 mL, at 100 mL/hr, Intravenous, CONTINUOUS, Starting on Fri08/19/17 at 0645, Until Fri08/19/17 at 1100, Day of Surgery (Day of Procedure) New Bag 08/19/2017 7:29 AM EDT New Bag 08/19/2017 6:45 AM EDT 1,000 mLs 100 mL/hr lactated Ringers infusion 1,000 mL 1,000 mL, at 100 mL/hr, Intravenous, CONTINUOUS, Starting on Fri08/19/17 at 1100, Until Fri08/20/17 at 1235 New Bag 08/20/2017 4:14 AM EDT 1,000 mLs 100 mL /hr New Bag 08/19/2017 7:44 PM EDT 1,000 mLs 100 mL/hr New Bag 08/19/2017 10:50 AM EDT 1,000 mLs 100 mL/hr nicotine (NICODERM CQ) 21 mg/24 hr patch 21 mg 21 mg, Transdermal, DAILY, First dose on Fri08/19/17 at 1200, Until Discontinued, STAT Patch Applied 08/20/2017 8:26 AM EDT 21 mg 10- Arm Upper (Right ) Patch Applied 08/19/2017 11:45 AM EDT 21 mg 09- Arm Upper (Left) nicotine (NICODERM CQ) 21 mg/24 hr patch Patch Removal Transdermal, DAILY, First dose on Fri08/20/17 at 0900, Until Discontinued, Remove nicotine 21 mg/24 hr patch nicotine (NICODERM CQ) 21 mg/24 hr patch Patch Verification Transdermal, 2 TIMES DAILY, First dose on Fri08/19/17 at 2100, Until Discontinued, Verify nicotine 21 mg/24 hr patch ondansetron (ZOFRAN) injection 4 mg 4 mg, Intravenous, EVERY 30 MIN PRN, Starting on Fri08/19/17 at 1010, Until Fri08/19/17 at 1314, Nausea, May repeat 4 mg once in 30 minutes. If multiple antiemetics ordered, use ondansetron first and if ineffective use prochlorperazine second and if ineffective use promethazine, PACU Recovery Given 08/19/2017 11:09 AM EDT 4 mg oxyCODONE (ROXICODONE) immediate release tablet 5-10 mg 5-10 mg, Oral, EVERY 4 HOURS PRN, Starting on Fri08/19/17 at 1037, Until Fri08/20/17 at 1235, Pain, Severe pain (7-10), - Initial dose 5 mg. - If pain control not adequate in 60 minutes, give additional 5 mg., Routine Given 08/20/2017 10:05 AM EDT 5 mg Given 08/19/2017 11:57 PM EDT 10 mg Given 08/19/2017 1:41 PM EDT 10 mg pantoprazole (PROTONIX) tablet 20 mg 20 mg, Oral, DAILY, First dose on Fri08/20/17 at 0900, Until Discontinued, DO NOT CRUSH OR OPEN Given 08/20/2017 8:26 AM EDT 20 mg sodium chloride 0.9 % flush 5 mL 5 mL, Intravenous, 2 TIMES DAILY, First dose on Fri08/19/17 at 1345, Until Discontinued, Routine Given 08/20/2017 8:27 AM EDT 5 mLs Given 08/19/2017 9:45 PM EDT 5 mLs Given 08/19/2017 1:41 PM EDT 5 mLs traZODone (DESYREL) tablet 50 mg 50 mg, Oral, NIGHTLY PRN, Starting on Fri08/19/17 at 1320, Until Fri08/20/17 at 1235, Sleep, Routine Given 08/19/2017 9:50 PM EDT 50 mg documented in this encounter Active and Recently Administered Medications Times are shown in EDT. Scheduled Medication Order 08/18/2017 08/19/2017 08/20/2017 acetaminophen (TYLENOL) tablet 1,000 mg (COMPLETED) 1,000 mg, Oral, ONCE, 1 dose, On Fri08/19/17 at 0645, Day of Surgery (Day of Procedure), Routine 06 (Given - Provider: Kalee Mason RN) buPROPion (WELLBUTRIN XL) XL tablet 150 mg 150 mg, Oral, DAILY, First dose on Fri08/20/17 at 0900, Until Discontinued, DO NOT CRUSH OR OPEN, Routine 08 (Given - Provid er: Carmen Miguel RN) ceFAZolin (ANCEF) 2g in dextrose 5% 100 mL (COMPLETED) 2 g, Intravenous, ONCE, 1 dose, On Fri08/19/17 at 0645, Administer over 30 Minutes, Redose every 3 hours if CrCl is greater than 20. Redose every 8 hours if CrCl is less than 20., Day of Surgery (Day of Procedure), Indication for (Active or Suspected): Prophylaxis 0749 (Given - Provider: Shobha Qureshi CRNA) docusate sodium (COLACE) capsule 100 mg 100 mg, Oral, 2 TIMES DAILY, First dose on Fri08/19/17 at 1345, Until Discontinued, Routine 1342 (Given - Provider: Nadia Schofield RN)2146 (Given - Provider: Calista Bhandari RN) 0826 (Given - Provider: Carmen Miguel RN) gabapentin (NEURONTIN) capsule 600 mg (COMPLETED) 600 mg, Oral, ONCE, 1 dose, On Fri08/19/17 at 1130, PACU Recovery, STAT 1254 (Given - Provider: Noreen Sawant RN - Comment: Pt nauseous during original due time) ibuprofen (ADVIL;MOTRIN) tablet 600 mg(Linked Group 1) 600 mg, Oral, EVERY 6 HOURS, First dose on Fri08/20/17 at 1600, Until Discontinued, - Begin after ketorolac discontinued. , Routine insulin lispro (HumaLOG) VIAL injection 1-4 Units(Linked Group 2) 1-4 Units, Subcutaneous, EVERY 4 HOURS SCHEDULED, First dose on Fri08/19/17 at 1600, Until Discontinued, CORRECTION BOLUS Sensitive to insulin lean patient or total daily dose of all insulin needed to achieve glycemic control less than 30 units BG 140 - 160 Give 1 unit BG 161 - 200 Give 2 units BG 201 - 240 Give 3 units BG greater than 240, give 4 units and recheck BG in 2 hours. If less than 240 after two hours, give no insulin and resume prior schedule. If BG remains greater than 240, repeat 4 units (no more than three times) & call for new basal insulin orders. DO NOT hold if NPO, unless specifically told to do so., Routine 1600 (Not Given - Provider: Nadia Schofield RN - Reason: Order parameters not met)2000 (Not Given - Provider: Calista Bhandari RN - Reason: Patient/family refused - Comment: pt prefers to wait until midnight POCT) 0000 (Not Given - Provider: Calista Bhandari RN - Reason: Order parameters not met)0400 (Not Given - Provider: Calista Bhandari RN - Reason: Order parameters not met)0800 (Not Given - Provider: Carmen Miguel RN - Reason: Order parameters not met) ketorolac (TORADOL) injection 15 mg(Linked Group 1) 15 mg, Intravenous, EVERY 6 HOURS, 5 doses, First dose on Fri08/19/17 at 1100, Last dose on Fri08/20/17 at 1000, Routine 1100 (Not Given - Provider: Kristy Deal RN - Reason: See comment - Comment: given intra-op)1110 (Given - Provider: Kristy Deal RN - Comment: per /Linda Adamson Knott request an additional dose was given.)1540 (Given - Provider: Nadia Schofield RN)2146 (Given - Provider: Calista Bhandari RN) 0404 (Given - Provider: Calista Bhandari RN)1000 (Not Given - Provider: Carmen Miguel RN - Reason: Loss of access) nicotine (NICODERM CQ) 21 mg/24 hr patch 21 mg(Linked Group 3) 21 mg, Transdermal, DAILY, First dose on Fri08/19/17 at 1200, Until Discontinued, STAT 1145 (Patch Applied - Provider: Noreen Sawant RN) 08 (Patch Applied - Provider: Carmen Miguel RN) nicotine (NICODERM CQ) 21 mg/24 hr patch Patch Removal(Linked Group 3) Transdermal, DAILY, First dose on Fri08/20/17 at 0900, Until Discontinued, Remove nicotine 21 mg/24 hr patch 08 (Patch Removed - Provider: Carmen Miguel RN) nicotine (NICODERM CQ) 21 mg/24 hr patch Patch Verification(Linked Group 3) Transdermal, 2 TIMES DAILY, First dose on Fri08/19/17 at 2100, Until Discontinued, Verify nicotine 21 mg/24 hr patch 2099 (Patch (dose and location) verified - Provider: Calista Bhandari RN) 08 (Patch (dose and location) verified - Provider: Carmen Miguel RN) pantoprazole (PROTONIX) tablet 20 mg 20 mg, Oral, DAILY, First dose on Fri08/20/17 at 0900, Until Discontinued, DO NOT CRUSH OR OPEN 0826 (Given - Provid er: Carmen Miguel, TREVA) sodium chloride 0.9 % flush 5 mL 5 mL, Intravenous, 2 TIMES DAILY, First dose on Fri08/19/17 at 1345, Until Discontinued, Routine 1341 (Given - Provider: Nadia Schofield, RN)2145 (Given - Provider: Calista Bhandari, TREVA) 0827 (Given - Provider: Carmen Miguel, TREVA) Continuous Medication Order 08/18/2017 08/19/2017 08/20/2017 lactated Ringers infusion 1,000 mL (CANCELED) 1,000 mL, at 100 mL/hr, Intravenous, CONTINUOUS, Starting on Fri08/19/17 at 0645, Until Fri08/19/17 at 1100, Day of Surgery (Day of Procedure) 0645 (New Bag - Provider: Kalee Mason RN)0729 (New Bag - Provider: Shobha Qureshi CRNA)1006 (Stopped - Provider: Zhao Ayala CRNA) lactated Ringers infusion 1,000 mL 1,000 mL, at 100 mL/hr, Intravenous, CONTINUOUS, Starting on Fri08/19/17 at 1100, Until Fri08/20/17 at 1235 1050 (New Bag - Provider: Noreen Sawant RN)1943 (Stopped - Provider: Calista Bhandari RN)194 (New Bag - Provider: Calista Bhandari RN) 041 (Stopped - Provider: Calista Bhandari RN)0414 (New Bag - Provider: Calista Bhandari RN) PRN Medication Order 08/18/2017 08/19/2017 08/20/2017 acetaminophen (TYLENOL) tablet 650 mg 650 mg, Oral, EVERY 6 HOURS PRN, Starting on Fri08/19/17 at 1037, Until Fri08/20/17 at 1235, Pain, - If ordered with other PRN pain medications give Ibuprofen first, then acetaminophen, then additional agents according to the pain scale. - Not to exceed 4g in 24 hours, Routine 2147 (Given - Provider: Calista Bhandari, TREVA) 0406 (Given - Provider: Calista Bhandari, TREVA)1005 (Given - Provider: Carmen Miguel, TREVA) BUpivacaine (PF) (MARCAINE) 0.25 % (2.5 mg/mL) injection (CANCELED) ONCE PRN, Starting on Fri08/19/17 at 0825, Until Fri08/20/17 at 1235, Intra-Operative (Intra-Procedure), Routine 0825 (Given - Provider: Kody Toth MD) dextrose 50% IV syringe 25-50 mL(Linked Group 4) 25-50 mL (12.5-25 g), Intravenous, EVERY 1 HOUR PRN, Starting on Fri08/19/17 at 1400, Until Fri08/20/17 at 1235, Low blood sugar, For BG 50-70: 120 mL Juice or Regular (not diet) soda OR 12.5 gram (25 mL) Dextrose 50% IV OR, if no IV access, 1 mg Glucagon IM. Recheck BG in 30 minutes. May repeat juice, dextrose or glucagon once per episode For BG less than 50: 240 mL Juice or Regular (not diet) soda OR 25 grams (50 mL) Dextrose 50% IV OR, if no IV access, 1 mg Glucagon IM. Recheck BG in 30 minutes. May repeat juice, dextrose, or glucagon once per episode. To avoid extravasation, push Dextrose 50% SLOWLY (3 mL over 1 minute) in a patent, running IV, preferably a central line. For persistent hypoglycemia, consider longer-acting treatment for the duration of the active insulin., Routine glucagon (human recombinant) injection SolR 1 mg(Linked Group 4) 1 mg, Intramuscular, EVERY 1 HOUR PRN, Starting on Fri08/19/17 at 1400, Until Fri08/20/17 at 1235, Low blood sugar, For BG 50-70: 120 mL Juice or Regular (not diet) soda OR 12.5 gram (25 mL) Dextrose 50% IV OR, if no IV access, 1 mg Glucagon IM. Recheck BG in 30 minutes. May repeat juice, dextrose or glucagon once per episode For BG less than 50: 240 mL Juice or Regular (not diet) soda OR 25 grams (50 mL) Dextrose 50% IV OR, if no IV access, 1 mg Glucagon IM. Recheck BG in 30 minutes. May repeat juice, dextrose, or glucagon once per episode. To avoid extravasation, push Dextrose 50% SLOWLY (3 mL over 1 minute) in a patent, running IV, preferably a central line. For persistent hypoglycemia, consider longer-acting treatment for the duration of the active insulin., Routine HYDROmorphone (DILAUDID) injection 0.2 mg 0.2 mg, Intravenous, EVERY 1 HOUR PRN, 2 doses, Starting on Fri08/19/17 at 1319, Until Fri08/20/17 at 1235, Pain, PRN for Severe Pain (7-10) or if unable to take P.O. medication, PRN for Severe Pain (7-10) or if unable to take P.O. medication, Routine HYDROmorphone (DILAUDID) injection 0.2-0.4 mg (CANCELED) 0.2-0.4 mg, Intravenous, EVERY 5 MIN PRN, Starting on Fri08/19/17 at 1010, Until Fri08/19/17 at 1314, Pain, Give 0.2 mg every 5 minutes PRN for mild to moderate pain (1-5) Give 0.4 mg every 5 minutes PRN for moderate to severe pain (6-10). Hold for respiratory rate less than 10 per minute. Maximum dose 4 mg over one hour. If multiple pain medications are ordered, start with hydromorphone or morphine and use fentanyl for breakthrough pain., PACU Recovery, Routine 1201 (Given - Provider: Noreen Sawant RN) lidocaine (XYLOCAINE) 10 mg/mL (1 %) injection 3 mg 3 mg (0.3 mL), Subcutaneous, ONCE PRN, 1 dose, Starting on Fri08/19/17 at 1319, Until Fri08/20/17 at 1235, for discomfort with PIV insertion, Routine ondansetron (ZOFRAN) injection 4 mg (CANCELED) 4 mg, Intravenous, EVERY 30 MIN PRN, Starting on Fri08/19/17 at 1010, Until Tu08/19/17 at 1314, Nausea, May repeat 4 mg once in 30 minutes. If multiple antiemetics ordered, use ondansetron first and if ineffective use prochlorperazine second and if ineffective use promethazine, PACU Recovery 1109 (Given - Provider: Kristy Deal RN) ondansetron (ZOFRAN) injection 4 mg 4 mg, Intravenous, EVERY 8 HOURS PRN, Starting on Fri08/19/17 at 1320, Until Fri08/20/17 at 1235, Nausea, Routine oxyCODONE (ROXICODONE) immediate release tablet 5-10 mg 5-10 mg, Oral, EVERY 4 HOURS PRN, Starting on Fri08/19/17 at 1037, Until Fri08/20/17 at 1235, Pain, Severe pain (7-10), - Initial dose 5 mg. - If pain control not adequate in 60 minutes, give additional 5 mg., Routine 1341 (Given - Provider: Nadia Schofield, RN)2357 (Given - Provider: Calista Bhandari, TREVA) 1005 (Given - Provider: Carmen Miguel RN) polyethylene glycol (MIRALAX) packet 17 g 17 g, Oral, DAILY PRN, Starting on Fri08/19/17 at 1319, Until Fri08/20/17 at 1235, Constipation, Administer if no bowel movement within 48 hours to achieve: (1) One bowel movement at least every 48 hours, AND (2) without straining. If multiple PRN bowel medications ordered, start with polyethylene glycol, then lactulose, then oral bisacodyl, then bisacodyl suppository, then magnesium citrate, then tap water enema. Multiple medications may be given concomitantly for constipation., Routine sodium chloride 0.9 % flush 5-20 mL 5-20 mL, Intravenous, EVERY 1 MIN PRN, Starting on Fri08/19/17 at 1100, Until Fri08/20/17 at 1235, flush, Flush pertains to all indwelling lines. Flush per protocol found in the job aid using the link provided on this medication record., Routine traZODone (DESYREL) tablet 50 mg 50 mg, Oral, NIGHTLY PRN, Starting on Fri08/19/17 at 1320, Until Fri08/20/17 at 1235, Sleep, Routine 2150 (Given - Provider: Calista Bhandari, RN) Linked Groups Order Group 1: ketorolac (TORADOL) injection 15 mgJump to med 15 mg, Intravenous, EVERY 6 HOURS, 5 doses, First dose on Fri08/19/17 at 1100, Last dose on Fri08/20/17 at 1000, Routine Followed by ibuprofen (ADVIL;MOTRIN) tablet 600 mgJump to med 600 mg, Oral, EVERY 6 HOURS, First dose on Fri08/20/17 at 1600, Until Discontinued, - Begin after ketorolac discontinued. , Routine Group 2: POCT Fingerstick Glucose (CANCELED) Routine, EVERY 4 HOURS, First occurrence on Fri08/19/17 at 1600, Until Specified, Consider choosing EVERY 4 HOURS as frequency for: - Type 1 Diabetes - At least 24 hours after coming off an insulin drip - At least 24 hours after admission for DKA - Hypoglycemia unawareness - Patients who are otherwise unstable Select the same frequency for the correction bolus insulin order And insulin lispro (HumaLOG) VIAL injection 1-4 UnitsJump to med 1-4 Units, Subcutaneous, EVERY 4 HOURS SCHEDULED, First dose on Fri08/19/17 at 1600, Until Discontinued, CORRECTION BOLUS Sensitive to insulin lean patient or total daily dose of all insulin needed to achieve glycemic control less than 30 units BG 140 - 160 Give 1 unit BG 161 - 200 Give 2 units BG 201 - 240 Give 3 units BG greater than 240, give 4 units and recheck BG in 2 hours. If less than 240 after two hours, give no insulin and resume prior schedule. If BG remains greater than 240, repeat 4 units (no more than three times) & call for new basal insulin orders. DO NOT hold if NPO, unless specifically told to do so., Routine Group 3: nicotine (NICODERM CQ) 21 mg/24 hr patch 21 mgJump to med 21 mg, Transdermal, DAILY, First dose on Fri08/19/17 at 1200, Until Discontinued, STAT And nicotine (NICODERM CQ) 21 mg/24 hr patch Patch VerificationJump to med Transdermal, 2 TIMES DAILY, First dose on Fri08/19/17 at 2100, Until Discontinued, Verify nicotine 21 mg/24 hr patch And nicotine (NICODERM CQ) 21 mg/24 hr patch Patch RemovalJump to med Transdermal, DAILY, First dose on Fri08/20/17 at 0900, Until Discontinued, Remove nicotine 21 mg/24 hr patch Group 4: dextrose 50% IV syringe 25-50 mLJump to med 25-50 mL (12.5-25 g), Intravenous, EVERY 1 HOUR PRN, Starting on Fri08/19/17 at 1400, Until Fri08/20/17 at 1235, Low blood sugar, For BG 50-70: 120 mL Juice or Regular (not diet) soda OR 12.5 gram (25 mL) Dextrose 50% IV OR, if no IV access, 1 mg Glucagon IM. Recheck BG in 30 minutes. May repeat juice, dextrose or glucagon once per episode For BG less than 50: 240 mL Juice or Regular (not diet) soda OR 25 grams (50 mL) Dextrose 50% IV OR, if no IV access, 1 mg Glucagon IM. Recheck BG in 30 minutes. May repeat juice, dextrose, or glucagon once per episode. To avoid extravasation, push Dextrose 50% SLOWLY (3 mL over 1 minute) in a patent, running IV, preferably a central line. For persistent hypoglycemia, consider longer-acting treatment for the duration of the active insulin., Routine Or glucagon (human recombinant) injection SolR 1 mgJump to med 1 mg, Intramuscular, EVERY 1 HOUR PRN, Starting on Fri08/19/17 at 1400, Until Fri08/20/17 at 1235, Low blood sugar, For BG 50-70: 120 mL Juice or Regular (not diet) soda OR 12.5 gram (25 mL) Dextrose 50% IV OR, if no IV access, 1 mg Glucagon IM. Recheck BG in 30 minutes. May repeat juice, dextrose or glucagon once per episode For BG less than 50: 240 mL Juice or Regular (not diet) soda OR 25 grams (50 mL) Dextrose 50% IV OR, if no IV access, 1 mg Glucagon IM. Recheck BG in 30 minutes. May repeat juice, dextrose, or glucagon once per episode. To avoid extravasation, push Dextrose 50% SLOWLY (3 mL over 1 minute) in a patent, running IV, preferably a central line. For persistent hypoglycemia, consider longer-acting treatment for the duration of the active insulin., Routine documented in this encounter Care Teams Control Cabinet Assembler Relationship Specialty Start Date End Date Moise Lala MD PCP - General Family Medicine 06/26/17 02/15/24 documented as of this encounter
--- OUTSIDE RECORDS SUMMARY | 2024-05-26 13:19 | XMS_ITS | Encounter Summary ---
Author Organization [facility] [place] [address] Care Team Providers Care Roll Scale Worker Name Role Phone Moise Lala MD Primary Care Provider [phone] Encounter Details Date Type Department Care Team (Late st Contact Info) Description 10/18/2021 Ancillary Procedure [facility] [place] [id number] Moise Lala MD [address] [place] [address] [address] [place], [place] [id number] Social History Tobacco Use Types Packs/Day Years [...] Procedure Name Priority Date/Time Associated Diagnosis Comments FILM LIBRARY STORAGE ONLY MR ABDOMEN Routine 10/18/2021 12:00 AM EDT documented in this encounter Results * Film Library- Storage Only MR Abdomen (10/18/2021 12:00 AM EDT) Narrative [facility] - 10/23/2021 10:03 AM EDT This exam is auto-finalizing. It's purpose is for storage only. Moise Lala MD [facility] FILM LIBRARY ORD ERABLES Performing Organization Address City/State/[facility] Co de Phone Number [place], [place] documented in this encounter Visit Diagnoses Not on filedocumented in this encounter Care Teams Roll Scale Worker Relationship Specialty Start Date End Date Moise Lala MD PCP - General Family Medicine 06/26/17 02/15/24 documented as of this encounter
--- OUTSIDE RECORDS SUMMARY | 2024-05-26 13:19 | XMS_ITS | Encounter Summary ---
[place] [address] Care Team Providers Care Oil Field Equipment Mechanic Name Role Phone Moise Lala MD Primary Care Provider [phone] Encounter Details Date Type Department Care Team (Latest Contact Info) Description 04/08/2023 Travel Social History Tobacco Use Types Packs/Day [...] on filedocumented in this encounter Care Teams Oil Field Equipment Mechanic Relationship Specialty Start Date End Date Moise Lala MD PCP - General Family Medicine 06/26/17 02/15/24 documented as of this encounter
--- OUTSIDE RECORDS SUMMARY | 2024-05-26 13:19 | XMS_ITS | Encounter Summary ---
[place] [address] Care Team Providers Care Chief Business Development Officer Name Role Phone Moise aLla MD Primary Care Provider [phone] Encounter Details Date Type Department Care Team (Late st Contact Info) Description 11/07/2021 Notes [place] [address] Alek Salmeron Jr. Social History Tobacco Use Types Packs/Day Years [...] as of this encounter Progress Notes * Alek Salmeron Jr. - 11/07/2021 8:33 AM EDT Stent vs. Indomethacin for Preventing Post-ERCP Pancreatitis: The SVI Trial PI: Emil Thomas MD MS Sanz # [id number] Objective of visit: Alek Lea Jr , research coordinator, and Dr. Omer met with Nikia Denton in [facility] to provide information regarding protocol [id number], answer questions or concerns about study plan, and evaluate his/her interest in study participation. Information Provided: Protocol was reviewed with Nikia Denton including, a description of the proposed care, treatment, services, medications, interventions, procedures, and follow-up including duration of subject's participation in study. Purpose of the study was also reviewed with the patient. Potential discomforts and risks were reviewed. The patient was informed regarding the uncertainties, both in terms of benefits as well as risks that are part of participation in clinical trials. Discussed confidentiality of patient's health information as specified in the protocol. Patient was advised that he/she may discontinue treatment at any time and that refusing to participate or discontinuing treatment will not compromise the patient's access to treatment options or care. Financial considerations in the context of clinical trials reviewed. The patient was given written information regarding the protocol during his/her visit on 11/07/21 and was offered adequate time to review the information. The patient was given adequate time to ask questions and review concerns, all of which were answered to the patient's satisfaction by Dr. Omer The PI/Sub I was available to answer any medical related questions if applicable. Assessment/Outcome: Nikia Denton verbalized understanding of the protocol and consents for treatment by using the teach-back method and being able to relay the purpose of the study and known possible risks/side effects of the procedure and treatment. Nikia Denton signed and dated consent version 7 on 11/07/21.A copy of the signed consent form was given to him/her for his/her records. Original, signed informed consent document will be scanned into the patient's electronic medical record and stored in the subject's study binder. Written informed consent was obtained prior to any study related procedures being done. Plan: 1. Nikia Denton agreed to participate in the above mentioned clinical trial. 2. Informed consent form signed 3. Pain questionnaire administered as per SVI protocol 4. Patient will continue to be screened on study [id number] to determine if patient meets criteria during the procedure * Alek Salmeron Jr. - 11/07/2021 8:33 AM EDT During ERCP for Nikia Denton , the patient met no inclusion criteria. The patient was consequently not enrolled in the SVI trial. Patient will be informed that she is no longer in the study following the procedure and will continue to be treated with standard of care. documented in this encounter Plan of Treatment Not on file documented as of this encounter Visit Diagnoses Not on filedocumented in this encounter Care Teams Chief Business Development Officer Relationship Specialty Start Date End Date Moise Lala MD PCP - General Family Medicine 06/26/17 02/15/24 documented as of this encounter
--- OUTSIDE RECORDS SUMMARY | 2024-05-26 13:19 | XMS_ITS | Encounter Summary ---
Author Organization [facility] [place] [address] Care Team Providers Care Manager Of Digital Name Role Phone Moise Lala MD Primary Care Provider [phone] Reason for Visit * Reason Comments Post Op Encounter Details Date Type Department Care Team (Late st Contact Info) Description 09/01/2017 9:30 AM EDT Office Visit Obstetrics [place] [address] Melody Lindo MD [facility] [place] [address] Urinary frequency; Abnormal uterine bleeding Social History Tobacco Use Types Packs/Day Years [...] Sign Reading Time Taken Comments Blood Pressure 132/77 09/01/2017 9:23 AM EDT Pulse 76 09/01/2017 9:23 AM EDT Temperature 36.8 ??C (98.2 ??F) 09/01/2017 9:23 AM ED T Respiratory Rate - - Oxygen Saturation 99% 09/01/2017 9:23 AM EDT Inhaled Oxygen Concentration - - Weight - - Height - - Body Mass Index - - documented in this encounter Progress Notes * Melody Lindo - 09/01/2017 9:30 AM EDT Gynecology Acute Office Visit Patient Name: Poly Denton Date of : 1965 Primary Care Provider: Moise Lala MD Date of Visit: 10:47 AM Patient Active Problem List Diagnosis Code ??? [...] BMI of 40.0-44.9, adult E66.01, Z68.41 ??? Abnormal uterine bleeding N93.9 ??? LBBB (left bundle branch block) I44.7 Reason for Visit: POLY DENTON is a 51 y.o. with PMH notable for HTN, HLD, fibromyalgia, smoker, GERD, anxiety/depression, BERTA, eczema, alopecia, obesity, glucose intolerance and LBBB, who presents with the primary complaint of bladder discomfort following TLH and BS on 08/19/17 (POD#13) for postmenopausal bleeding. Subjective: Starting 1 week ago, Poly states she has felt extreme pain with bladder distension and increased urinary frequency. She feels an urge to void every 30 minutes but only voids a small amount of urine. The volume is more than drips but is much less than she would expect for the discomfort she is feeling. After voiding, she feels lower pelvic cramping for about 10 minutes. Is also getting up 2x/night (over 8 hours) to void. As a result, she is not sleeping well and is very tired. She continues to take ibuprofen and tylenol every 6 hours. Denies dysuria or hematuria. No vaginal bleeding. Passing regular bowel movements, 1x/day. Denies intercourse or anything in the vagina since surgery. Lastly, endorses abdominal muscle soreness that worsens when sitting up straight or putting any pressure on her abdomen. She was only expecting to be out of work for 3 weeks but now feels that she needs to extend that time to 4 weeks. ROS: in addition to above, denies fevers/chills, dizziness, headache, vision change, chest pain, palpitations, cough, wheeze, shortness of breath, nausea/vomiting, diarrhea/constipation, change in vaginal discharge, muscle/joint aches, easy bruising, rashes, depression/anxiety Past obstetrical, gynecologic, medical, surgical, family and social history reviewed and up to date Prior to Admission medications Medication Sig Start Date End Date Taking? Authorizing Provider acetaminophen (TYLENOL) 325 mg Tablet Take 2 tablets by mouth every 6 hours as needed for Pain. 08/20/17 Yes Melody Lindo MD ibuprofen (ADVIL;MOTRIN) 600 mg Tablet Take 1 tablet by mouth every 6 hours as needed for Pain. 08/20/17 Yes Melody Lindo MD buPROPion (WELLBUTRIN XL) 150 mg Tablet Extended Release 24 hr 06/30/17 Yes PROVIDER, HISTORICAL tiZANidine (ZANAFLEX) 2 mg Tablet 08/07/17 Yes PROVIDER, HISTORICAL triamcinolone (KENALOG) 0.1 % Cream apply to ECZEMA ON HANDS twice a day 05/23/17 Yes PROVIDER, HISTORICAL amLODIPine (NORVASC) 5 mg Tablet take 1 tablet by mouth once daily 06/18/17 Yes PROVIDER, HISTORICAL atorvastatin (LIPITOR) 40 mg Tablet Take 40 mg by mouth daily. 06/30/17 Yes PROVIDER, HISTORICAL metFORMIN (GLUCOPHAGE-XR) 500 mg Tablet Sustained Release 24 hr take 1 tablet by mouth daily 06/26/17Yes PROVIDER, HISTORICAL omeprazole (PRILOSEC) 40 mg Capsule, Delayed Release(E.C.) Take 40 mg by mouth 2 times daily. 06/23/17 Yes PROVIDER, HISTORICAL cyanocobalamin 500 mcg Tablet Take 500 mcg by mouth daily. Yes PROVIDER, HISTORICAL cholecalciferol, Vitamin D3, 2,000 unit Tablet Take by mouth daily. Yes PROVIDER, HISTORICAL Biotin 5 mg Capsule Take by mouth daily. Yes PROVIDER, HISTORICAL traZODone (DESYREL) 50 mg tablet Take by mouth. 1-2 tablets at HS 11/15/11 Yes Alexis Kamara MD nicotine (NICODERM CQ) 21 mg/24 [address] 1 patch onto the skin daily. Patient not taking: Reported on 09/01/2017 08/20/17 Melody Lindo MD polyethylene glycol (MIRALAX) 17 gram Powder in Packet Take 17 g by mouth daily as needed. Patient not taking: Reported on 09/01/2017 08/20/17 Melody Lindo MD oxyCODONE (ROXICODONE) 5 mg Tablet Take 1 tablet by mouth every 4 hours as needed for Pain (Severe pain (7-10)). 08/20/17 09/01/17 Melody Lindo MD Allergies Allergen Reactions ??? Latex Rash ??? Other [Unclassified Drug] Rash Strawberries ??? Pcn [Penicillins] Causes multiple infections Objective: Most Recent Vitals: 09/01/17 0923 BP: 132/77 Pulse: 76 Temp: 36.8 ??C (98.2 ??F) SpO2: 99% Physical Examination: General appearance - alert, well appearing, uncomfortable when walking to exam table Chest - clear to auscultation, no wheezes, rales or rhonchi, symmetric air entry Heart - normal rate, regular rhythm, normal S1, S2, no murmurs, rubs, clicks or gallops Back - no CVA tenderness Abdomen - normoactive bowel sounds, soft, obese, tender to palpation in LLQ, nondistended, no masses or organomegaly Incisions: 3 laparoscopic port incisions (1 umbilical, 1 RLQ, 1 LLQ) that are well healed with no area of erythema or dehiscence Pelvic - normal external genitalia, physiologic discharge in vaginal vault that appeared clear in color, no blood noted, vaginal cuff appeared to be intact without any area of dehiscence and no granulation tissue noted, on bimanual exam, cuff again appeared to feel in tact, adnexa non-tender with no masses noted Extremities - calves non-tender, no LE edema Labs: Urinalysis: notable for trace protein and ketones Post-void residual bladder scan: 32 cc Assessment/Plan: POLY DENTON is a 51 y.o. with PMH as above, who presents with the primary complaint of bladder discomfort following TLH and BS on 08/19/17 (POD#13) for postmenopausal bleeding. Upon evaluation, physical exam unremarkable with LLQ tenderness thought to be due to port site. Vaginal cuff appears to be intact with no concern for dehiscence. Urinalysis not concerning for infection and post-void residual minimal. Operative note and pathology reviewed at this time. Bladder symptoms most likely due to post-operative inflammation and healing, which is appropriate for 2 weeks post-op from hysterectomy. Discussed post-operative recovery course with patient at this time. Encouraged her to continue using tylenol & ibuprofen as needed to be eaten with meals and gentle walking as tolerated. Provided the patient with work-note to extend leave to 4 weeks. Encouraged her to call with other concerning symptoms, otherwise she will follow up on 09/22 for postoperative visit with Dr. Toth. Patient was seen and discussed with attending physician, Dr. Gauthier. Melody Lindo MD PGY1 09/01/2017 * Rain Gauthier MD - 09/01/2017 9:30 AM EDT I have seen the patient and reviewed the Dr. Lindo's above history and I agree with the details aswritten. The assessment and plan were formulated in discussion with me and I agree with them as documented. I was present for the exam and performed a bimanual confirming Dr. Lindo's findings. Physiologic discharge, no vaginal bleeding. Advised to call with F/C, N/V, constipation/diarrhea, worsening symptoms or other questions/concers. Otherwise, return for regularly scheduled postop appt. Rain Gauthier MD documented in this encounter Plan of Treatment Not on file documented as of this encounter Procedures Procedure Name Priority Date/Time Associated Diagnosis Comments URINALYSIS MICROSCOPIC EXAM Routine 09/01/2017 10:15 AM EDT URINALYSIS WITH REFLEX CULTURE Routine 09/01/2017 10:15 AM EDT Urinary frequency BLADDER SCANNER Routine 09/01/2017 Urinary frequency documented in this encounter Results * (ABNORMAL) Urinalysis Microscopic Exam (09/01/2017 10:15 AM EDT) RBC, Urine 6(H) 0 - 4 /HPF [facility] WBC, Urine 2 0 - 5 /HPF [facility] Squamous Epithelial Cells Raw Data, Urine 9(H) <=4 /HPF [facility] Transitional Epithelial Cells, Urine <1 <=1 /HPF [facility] Renal Epithelial Cells, Urine <1(H) <=0 /HPF [facility] Hyaline Casts, Urine 3(H) 0 - 2 /LPF [facility] Urine specimen obtained by clean catch procedure (specimen) 09/01/2017 10:15 AM EDT 09/01/2017 10:44 AM EDT Narrative Resulting Agency Comment Spec In Lab Melody Lindo MD URINE ORDERABLES [facility] [place] [address] * (ABNORMAL) Urinalysis with reflex Culture (09/01/2017 10:15 AM EDT) Glucose, Urine Dipstick Negative Negative mg/dL [facility] Protein, Urine Dipstick 30(A) Negative mg/dL [facility] Bilirubin, Urine Dipstick Negative Negative mg/dL [facility] Comment: Clinical correlation required for positive Urine Bilirubin results as false positive may occur with some drugs and drug related products. If a false positive is suspected a serum total bilirubin should be considered if clinically indicated. Urobilinogen, Urine Dipstick Normal Normal mg/dL [facility] pH, Urn (dipstick) 5.0 5.0 - 8.0 [facility] Blood, Urine Dipstick Negative Negative mg/dL [facility] Ketone, Urine Dipstick 5(A) Negative mg/dL [facility] Nitrite, Urine Dipstick Negative Negative [facility] Leukocytes, Urine Dipstick Negative Negative [facility] Appearance, Urine Dipstick Hazy(A) Clear [facility] Specific [place] Urine Automated >1.035(H) 1.002 - 1.030 [facility] Color, Urine Dipstick Yellow Yellow [facility] Reflex to Culture No [facility] Urine specimen obtained by clean catch procedure (specimen) 09/01/2017 10:15 AM EDT 09/01/2017 10:44 AM EDT Narrative Resulting Agency Comment Spec In Lab Rain Gauthier MD URINE ORDERABLES [facility] [place] [address] * Bladder Scanner (09/01/2017) Bladder Scan (mL) 32 mL Rain Gauthier MD URO PROC W/O RFL ORD ERABLES documented in this encounter Visit Diagnoses Diagnosis Urinary frequency Abnormal uterine bleeding Unspecified disorder of menstruation and other abnormal bleeding from female genital tract documented in this encounter Care Teams Manager Of Digital Relationship Specialty Start Date End Date Moise Lala MD PCP - General Family Medicine 06/26/17 02/15/24 documented as of this encounter
--- OUTSIDE RECORDS SUMMARY | 2024-05-26 13:19 | XMS_ITS | Encounter Summary ---
[place] [address] Care Team Providers Care Incendiary Powder Mixer Name Role Phone Moise Lala MD Primary Care Provider [phone] Reason for Visit * Auth/Cert Specialty Diagnoses / Procedures Referred By Gael t Referred To Contact Diagnoses Morbid (severe) obesity due to excess calories Nicotine dependence, unspecified, uncomplicated Abnormal uterine bleeding (AUB) perimenopausal AUB Procedures PRO LAPAROSCOPY W TOT HYSTERECT UTERUS 250 GRAM OR LESS LAPAROSCOPY, HYSTERECTOMY, UTERUS<250GMS (WRVU 13.36) Referral ID Status Reason Start Date Expiration Date Visits Re quested Visits Authorized [id number] 1 1 Encounter Details Date Type Department Care Team (Late st Contact Info) Description 08/19/2017 7:30 AM EDT - 08/19/2017 10:45 AM EDT Surgery [place] [id number] Kody Toth MD LAPAROSCOPY, TOTAL HYST, UTERUS<250GMS, REM TUBE &/OR OVARY (WRVU 15) Social History Tobacco Use Types Packs/Day Years [...] Sign Reading Time Taken Comments Blood Pressure 132/74 08/19/2017 10:45 AM EDT Pulse 67 08/19/2017 10:45 AM EDT Temperature 36.3 ??C (97.3 ??F) 08/19/2017 10:29 AM E DT Respiratory Rate 15 08/19/2017 10:45 AM EDT Oxygen Saturation 99% 08/19/2017 10:45 AM EDT Inhaled Oxygen Concentration - - [...] Nikia Denton Patient Age: 51 y.o. Language: Citizen Of [place] Race: White Ethnicity: Not nor Admit date: 08/19/2017 Discharge date and time: 08/20/17 8:59 AM Attending Physician: Kody Toth MD Discharge Physician: Kody Toth MD Follow-up Recommendations for Providers: -- 4-6 weeks for postoperative visit -- Final surgical pathology Inpatient Provider Contact Information: [facility] LOBBY ATTENDANT Department, Discharge Diagnoses (Hospital Problems) and Secondary [...] at Discharge: Patient Instructions PATIENT DISCHARGE INSTRUCTIONS [facility] LOBBY ATTENDANT Department: Follow Up Appointment: --Postoperative visit in [...] None Provider Contact Information: Moise Lala MD [phone] documented in this encounter Discharge Instructions * Patient Instructions* Melody Lindo - 08/19/2017 10:53 AM EDT Images from the original note were not included. PATIENT DISCHARGE INSTRUCTIONS [facility] LOBBY ATTENDANT Department: Follow Up Appointment: --Postoperative visit in [...] home pending voiding trial. Please see s [facility]-based assessment below. Neuro/Pain Control: History of fibromyalgia. [...] Dr. Toth. Melody Lindo MD PGY-1 08/20/17 REGULATOR INSPECTOR Service Pager: [phone] Associated attestation - Kody Toth MD - [...] Will DWA Melody Werner MD PGY-4 08/19/17 REGULATOR INSPECTOR Service Pager: [phone] * Kristy Deal RN - 08/19/2017 11:22 AM EDT Lunch coverage at this time. Pt c/o nausea and having apnea. CPAP currently being checked by [facility] will place on patient when nausea subsides. [...] documented in this encounter H&P Notes * Valant, Melody J - 08/19/2017 6:38 AM EDT Hydrostatic Tubing Tester Inpatient Admission Interval Note I have reviewed [...] Outcome: Ongoing (Interventions Implemented as Appropriate) 08/19/17 174 Mutuality/Individual Preferences What Anxieties, Fears or Concerns [...] Outcome: Ongoing (Interventions Implemented as Appropriate) 08/19/17 4648 Interdisciplinary Rounds/Family Conf Participants family;nursing;physician * Op Note - Melisa Wilkerson MD - 08/19/2017 11:26 AM EDT Operative Note ?? Patient Name: Nikia Denton : [id number] MR#: [id number] ?? Case Date: 08/19/2017 ?? Surgeon: Surgeon(s) [...] in the dorsal lithotomy position in [facility] stirrups.She was prepped and draped in the usual sterile fashion including a vaginal prep and a benavidez catheter was placed. A time-out was performed [...] ml. There were no complications. ? Dr. oTth present for entire surgery, MELISA WILKERSON MD [...] Operative Note Patient Name: Nikia Denton : [id number] MR#: [id number] Case Date: 08/19/2017 Surgeon: Surgeon(s) and Role: [...] POCT GLUCOSE Routine 08/19/2017 6:26 AM EDT AIRCRA[employer]ANT ASSEMBLER SCAN 08/19/2017 12:00 AM EDT documented in this encounter Results * POCT Glucose (08/20/2017 7:18 AM EDT) Glucose, POC 113 65 - 199 mg/dL [facility] Comment: Supplemental ranges: <140 mg/dL before meals <180 mg/dL all other times of the day Blood specimen (specimen) 08/20/2017 7:18 AM EDT 08/20/2017 7:18 AM EDT Kody Toth MD POINT OF CARE TEST Melonie QUIÑONES [facility] [place] [address] * POCT Glucose (08/20/2017 3:48 AM EDT) Glucose, POC 116 65 - 199 mg/dL [facility] Comment: Supplemental ranges: <140 mg/dL before meals <180 mg/dL all other times of the day Blood specimen (specimen) 08/20/2017 3:48 AM EDT 08/20/2017 3:48 AM EDT Kody Toth MD POINT OF CARE TEST O NURIA [facility] [place] [address] * POCT Glucose (08/19/2017 11:52 PM EDT) Glucose, POC 117 65 - 199 mg/dL [facility] Comment: Supplemental ranges: <140 mg/dL before meals <180 mg/dL all other times of the day Blood specimen (specimen) 08/19/2017 11:52 PM EDT 08/19/2017 11:52 PM EDT Kody Toth MD POINT OF CARE TEST O NURIA Performing Organization Address [facility] Co de Phone Number [facility] [place] [address] * POCT Glucose (08/19/2017 8:10 PM EDT) Glucose, POC 147 65 - 199 mg/dL [facility] Comment: Supplemental ranges: <140 mg/dL before meals <180 mg/dL all other times of the day Blood specimen (specimen) 08/19/2017 8:10 PM EDT 08/19/2017 8:10 PM EDT Kody Toth MD POINT OF CARE TEST O TYRONEERAJESSENIA Performing Organization Address [facility] Co de Phone Number [facility] [place] [address] * POCT Glucose (08/19/2017 3:40 PM EDT) Glucose, POC 139 65 - 199 mg/dL [facility] Comment: Supplemental ranges: <140 mg/dL before meals <180 mg/dL all other times of the day Blood specimen (specimen) 08/19/2017 3:40 PM EDT 08/19/2017 3:40 PM EDT Kody Toth MD POINT OF CARE TEST O RDERAJESSENIA Performing Organization Address [facility] Co de Phone Number [facility] [place] [address] * Surgical Pathology Report (08/19/2017 8:59 AM EDT) Final Diagnosis [id number] ? Location: [facility]; 16; A The signing pathologist has (i) [...] Shruthi Orozco Verified: ??08/22/2017 ?Pathologist Performed at: ??-[facility] Dept. of Pathology, [place], [place] CLINICAL INFORMATION Specimen Submitted: A - [...] nodules. (R8) nsm 08/22/2017 10:10 AM EDT [facility] Uterine Corpus 08/19/2017 8: 59 AM EDT 08/19/2017 8:59 AM EDT Kody Toth MD PATHOLOGY/CYTOLOGY O NURIA Performing Organization Address City/[facility] Co de Phone Number [facility] [place] [address] * Specimen to Pathology (08/19/2017 8:59 AM EDT) AP Specimen 08/19/2017 8:59 AM EDT 08/19/2017 8:59 AM EDT Narrative [facility] - 08/19/2017 8:59 AM EDT Specimen requisition ordered. ??Separate Pathology report to follow Kody Toth MD PATHOLOGY/CYTOLOGY O NURIA Performing Organization Address [facility] Co de Phone Number [facility] [place] [address] * POCT urine (08/19/2017 7:21 AM EDT) POC Urine HCG Negative Negative - Negative POC Control Internal Controls Acceptable Urine specimen (specimen) 08/19/2017 7:21 AM EDT Kody Toth MD POINT OF CARE TEST O RDERAJESSENIA * POCT Glucose (08/19/2017 6:26 AM EDT) Glucose, POC 136 65 - 199 mg/dL [facility] Comment: Supplemental ranges: <140 mg/dL before meals <180 mg/dL all other times of the day Blood specimen (specimen) 08/19/2017 6:26 AM EDT 08/19/2017 6:26 AM EDT Kody Toth MD POINT OF CARE TEST O NURIA Performing Organization Address [facility] [place] [address] * SCAN DOC: AIRCRAFT POWER PLANT ASSEMBLER (08/19/2017 12:00 AM EDT) Anatomical Region Laterality Modality Other Narrative 08/19/2017 12:00 AM EDT Ordered by an unspecified provider. Scanning Provider MEDIA MGR SCAN EXT O RDR/RSLT documented in this encounter Visit Diagnoses Diagnosis Abnormal uterine bleeding- Primary Unspecified disorder of menstruation and other abnormal bleeding from female genital tract Morbid obesity Tobacco use disorder Essential hypertension Unspecified essential hypertension BERTA (obstructive sleep apnea) Obstructive sleep apnea (adult) (pediatric) Morbid obesity Tobacco use disorder Essential hypertension Unspecified essential hypertension BERTA (obstructive sleep apnea) Obstructive sleep apnea (adult) (pediatric) Abnormal uterine bleeding Unspecified disorder of menstruation and other abnormal bleeding from female genital tract documented in this encounter Administered Medications Inactive [...] Given 08/19/2017 9:47 PM EDT 650 mg BUpivacaine (PF) (MARCAINE) 0.25 % (2.5 mg/mL) injection ONCE PRN, Starting on Fri08/19/17 at 0825, Until Fri08/20/17 at 1235, Intra-Operative (Intra-Procedure), Routine Given 08/19/2017 8:25 AM EDT 13 mLs 19- Surgical Site buPROPion (WELLBUTRIN XL) XL tablet 150 mg [...] Day of Surgery (Day of Procedure), Routine 0645 (Given - Provider: Kalee Mason RN) buPROPion (WELLBUTRIN XL) XL tablet 150 mg 150 mg, Oral, DAILY, First dose on Fri08/20/17 at 0900, Until Discontinued, DO NOT CRUSH OR OPEN, Routine 0826 (Given - Provid er: Carmen Miguel RN) [...] Discontinued, Routine 1342 (Given - Provider: Nadia Schofield, TREVA)2146 (Given - Provider: Calista Bhandari RN) 0826 (Given - Provider: Carmen Miguel, TREVA) gabapentin (NEURONTIN) capsule 600 mg (COMPLETED) 600 [...] Routine 1600 (Not Given - Provider: Nadia Schofield, TREVA - Reason: Order parameters not met)2000 (Not [...] (Patch Applied - Provider: Noreen Sawant RN) 0826 (Patch Applied - Provider: Carmen Miguel, TREVA) nicotine (NICODERM CQ) 21 mg/24 hr patch Patch Removal(Linked Group 3) Transdermal, DAILY, First dose on Fri08/20/17 at 0900, Until Discontinued, Remove nicotine 21 mg/24 hr patch 0827 (Patch Removed - Provider: Carmen Miguel, TREVA) nicotine (NICODERM CQ) 21 mg/24 hr patch Patch Verification(Linked Group 3) Transdermal, 2 TIMES DAILY, First dose on Fri08/19/17 at 2100, Until Discontinued, Verify nicotine 21 mg/24 hr patch 2100 (Patch (dose and location) verified - Provider: Calista Bhandari RN) 08 (Patch (dose and location) verified - Provider: Carmen Miguel, TREVA) pantoprazole (PROTONIX) tablet 20 mg 20 mg, Oral, DAILY, First dose on Fri08/20/17 at 0900, Until Discontinued, DO NOT CRUSH OR OPEN 0826 (Given - Provid er: Carmen Miguel, TREVA) sodium chloride 0.9 % flush 5 mL 5 mL, Intravenous, 2 TIMES DAILY, First dose on Fri08/19/17 at 1345, Until Discontinued, Routine 1341 (Given - Provider: Nadia Schofield, RN)214 (Given - Provider: Calista Bhandari, TREVA) 08 (Given - Provider: Carmen Miguel, TREVA) Continuous [...] 1050 (New Bag - Provider: Noreen Sawant RN)194 (Stopped - Provider: Calista Bhandari RN)194 (New Bag - Provider: Calista Bhandari RN) 041 (Stopped - Provider: Calista Bhandari RN)041 (New Bag - Provider: Calista Bhandari RN) [...] to exceed 4g in 24 hours, Routine 214 (Given - Provider: Calista Bhandari, RN) 0406 (Given - Provider: Calista Bhandari, RN)1005 (Given - Provider: Carmen Miguel RN) BUpivacaine (PF) (MARCAINE) 0.25 % (2.5 mg/mL) [...] Recovery, Routine 1201 (Given - Provider: Noreen Sawant, TREVA) lidocaine (XYLOCAINE) 10 mg/mL (1 %) injection [...] PACU Recovery 1109 (Given - Provider: Kristy Deal, TREVA) ondansetron (ZOFRAN) injection 4 mg 4 mg, [...] mg., Routine 1341 (Given - Provider: Nadia Schofield RN)2357 (Given - Provider: Calista Bhandari, TREVA) [...] Sleep, Routine 2150 (Given - Provider: Calista Bhandari RN) Linked Groups Order Group 1: ketorolac [...] Routine documented in this encounter Care Teams Incendiary Powder Mixer Relationship Specialty Start Date End Date Moise Lala MD PCP - General Family Medicine 06/26/17 02/15/24 documented as of this encounter
--- OUTSIDE RECORDS SUMMARY | 2024-05-26 13:19 | XMS_ITS | Encounter Summary ---
[place] [address] Care Team Providers Care Field Service Representative Name Role Phone Moise Lala MD Primary Care Provider Encounter Details Date Type Department Care Team (Latest Contact Info) Description 08/08/2017 5:55 PM EDT Laboratory Appointment Lab [address] [place] [address] Preop testing Social History Tobacco Use Types Packs/Day Years Used Date Smoking Tobacco: Every Day Cigarettes Smokeless Tobacco: Never Sex and Gender Information Value Date Recorded Sex Assigned at Not on file Gender Identity Not on file Sexual Orientation Not on file documented as of this encounter Plan of Treatment Not on file documented as of this encounter Procedures Procedure Name Priority Date/Time Associated Diagnosis Comments ABORH RECHECK STATUS Routine 08/08/2017 5:59 PM EDT HEMOGRAM Routine 08/08/2017 5:59 PM EDT Preop testing DIFFERENTIAL, AUTOMATED Routine 08/08/2017 5:59 PM EDT Preop testing ABO/RH TYPING Routine 08/08/2017 5:59 PM EDT Preop testing CBC (WITH DIFF) Routine 08/08/2017 5:59 PM EDT Preop testing ANTIBODY SCREEN Routine 08/08/2017 5:59 PM EDT Preop testing TYPE AND SCREEN ([facility]/ELANA) Routine 08/08/2017 5:59 PM EDT Preop testing COMPREHENSIVE METABOLIC PANEL Routine 08/08/2017 5:59 PM EDT Preop testing documented in this encounter Results * ABORH Recheck Status (08/08/2017 5:59 PM EDT) ABORH Recheck Order Order Placed [facility] ABORH Type Recheck Complete [facility] Blood specimen (specimen) 08/08/2017 5:59 PM EDT 08/08/2017 6:04 PM EDT Narrative Resulting Agency Comment Spec In Lab Kody Toth MD BLOOD BANK LAB ORDER TIANA Performing Organization Address City/[facility]/ZIP Co de Phone Number [facility] [place] [place] [address] * Antibody screen (08/08/2017 5:59 PM EDT) Ab Screen Interp Negative [facility] Expires at [id number] on: 08/22/2017 [facility] Blood specimen (specimen) 08/08/2017 5:59 PM EDT 08/08/2017 6:04 PM EDT Narrative Resulting Agency Comment Spec In Lab Kody Toth MD BLOOD BANK LAB ORDER TIANA [facility] [place] [place] [address] * ABO/Rh Typing (08/08/2017 5:59 PM EDT) ABORH Type A Neg [facility] Blood specimen (specimen) 08/08/2017 5:59 PM EDT 08/08/2017 6:04 PM EDT Narrative Resulting Agency Comment Spec In Lab Kody Toth MD BLOOD BANK LAB ORDER TIANA Performing Organization Address City/[facility]/ZIP Co de Phone Number [facility] [place] [address] * (ABNORMAL) Differential, Automated (08/08/2017 5:59 PM EDT) Neutrophil % 53.8 % [facility] Neutrophil Absolute 5.47 1.70 - 6.10 x10(3)/ L [facility] Lymph % 36.1 % [facility] Lymphocytes Abs 3.7(H) 0.9 - 3.2 x10(3)/[facility] Monocyte % 7.9 % [facility] Monocyte Abs 0.8 0.3 - 0.9 x10(3)/[facility] Eos % 1.1 % [facility] Eosinophils Abs 0.1 0.0 - 0.4 x10(3)/[facility] Basophil % 0.7 % [facility] Baso Absolute 0.1 0.0 - 0.1 x10(3)/[facility] Immature Gran % 0.40 % [facility] Comment: Immature granulocytes(IG's)percentage and absolute count will include metamyelocytes, myelocytes, and promyelocytes. Blood smears from CBCs yielding IG's will be scanned manually for concordance. If this scan disagrees with the automated IG or if promyelocytes are noted, a manual differential will be performed. Immature Gran Absolute 0.04 0.00 - 0.04 x10(3)/ L [facility] Blood specimen (specimen) 08/08/2017 5:59 PM EDT 08/08/2017 6:03 PM EDT Narrative Resulting Agency Comment Spec In Lab Kody Toth MD HEMATOLOGY ORDERABLE S Performing Organization Address City/[facility]/ZIP Co de Phone Number [facility] [place] [address] * (ABNORMAL) Hemogram (08/08/2017 5:59 PM EDT) White Blood Cell 10.2(H) 4.0 - 9.5 x10(3)/mc L [facility] Red Blood Cell 4.29 4.00 - 5.21 x10(6)/mc L [facility] Hemoglobin 12.3 11.7 - 15.5 gm/dL [facility] Hematocrit 37.4 35.7 - 45.8 % [facility] Mean Cell Volume 87.2 82.6 - 94.4 fL [facility] Mean Cell Hemoglobin 28.7 27.1 - 32.0 pg [facility] Mean Cell Hemoglobin Concentration 32.9 31.7 - 35.0 gm/dL [facility] Platelet 337 145 - 357 x10(3)/[facility] RDW Standard Deviation 44.1 37.0 - 46.0 [facility] RDW coefficient of variation 14.0 11.5 - 14.1 % [facility] Mean Platelet Volume 9.7 7.6 - 12.9 fL [facility] NRBC% auto 0.0 % [facility] NRBC Absolute 0.000 0.000 - 0.000 x10(3)/[facility] Blood specimen (specimen) 08/08/2017 5:59 PM EDT 08/08/2017 6:03 PM EDT Narrative Resulting Agency Comment Spec In Lab Kody Toht MD HEMATOLOGY ORDERABLE S [facility] [place] [place] [address] * Comprehensive metabolic panel (non-fasting) (08/08/2017 5:59 PM EDT) Glucose 101 65 - 199 mg/dL [facility] Comment:Diabetes: >=200 mg/d L plus symptoms Blood Urea Nitrogen 16 8 - 18 mg/dL [facility] Creatinine 0.82 0.70 - 1.20 mg/dL [facility] Sodium 137 135 - 145 mmol/L [facility] Potassium 4.0 3.5 - 5.0 mmol/L [facility] Comment: Please note: ??Patients with WBC >100,000 may have falsely elevated Potassium levels. ??For accurate Potassium quantification in these patients send serum separator tube (gold top) for subsequent determinations. ??Contact the Clinical Chemistry Laboratory if there are any questions. Chloride 98 98 - 107 mmol/L [facility] Carbon Dioxide 27 22 - 31 mmol/L [facility] Anion Gap 12 5 - 15 mmol/L [facility] Calcium 9.3 8.5 - 10.5 mg/dL [facility] Protein, Total 7.3 6.1 - 8.0 gm/dL [facility] Albumin 4.3 3.2 - 5.2 gm/dL [facility] Aspartate Aminotransferase 8 0 - 30 unit/L [facility] Alanine Aminotransferase 19 0 - 30 unit/L [facility] Alkaline Phosphatase 104 40 - 104 unit/L [facility] Bilirubin, Total 0.2 0.2 - 1.3 mg/dL [facility] Est Glomerular Filtration Rate >60 >=60 [facility] Comment: The reported eGFR should be multiplied by 1.2 for patients. The MDRD is not an appropriate measure of renal function for patients with body mass extremes or in patients with acute kidney failure. [email or web address] Blood specimen (specimen) 08/08/2017 5:59 PM EDT 08/08/2017 6:03 PM EDT Narrative Resulting Agency Comment Spec In Lab Kody Toth MD CHEMISTRY ORDERABLES [facility] [place] [address] documented in this encounter Visit Diagnoses Diagnosis Preop testing Preoperative examination, unspecified documented in this encounter Care Teams Field Service Representative Relationship Specialty Start Date End Date Moise Lala MD PCP - General Family Medicine 06/26/17 02/15/24 documented as of this encounter
--- OUTSIDE RECORDS SUMMARY | 2024-05-26 13:19 | XMS_ITS | Encounter Summary ---
Author Organization [facility] [place] [address] Care Team Providers Care Head Sawyer Automatic Name Role Phone Moise Lala MD Primary Care Provider [phone] Reason for Visit * Auth/Cert Specialty Diagnoses [...] EUS- ENDOSCOPIC ULTRASOUND ERCP Guillermo Omer MD [facility] [place] [address] [facility] Referral ID Status Reason Start Date Expiration Date Visits Re quested Visits Authorized [id number] 1 1 Encounter Details Date Type Department Care Team (Late st Contact Info) Description 11/07/2021 8:28 AM EDT Anesthesia [place] [phone] Alona Holliday MD [facility] ANEST[place]ES[place]OLOG[place] [address] Anesthesia Record Procedure Summary Procedure Name Responsible Anesthesiologist Anesthesia Start Time Anesthesia Stop Time UPPER EUS- ENDOSCOPIC ULTRASOUND (WRVU 3.47) (Trunk) Alona Holliday MD 11/07/21 0828 11/07/21 0955 Events Date Time Event Comment 11/07/2021 0759 0828 AN Verify 0828 Start 0828 An Start Data 0833 An Induction 0833 Anesthesia Ready 0854 an candy now 0854 An Induction Convert to gene [facility] with ett for ERCP 0856 An Intubation 0955 an stop data 0955 Recovery or ICU Handoff Marlen ent care was transferred to the destination unit staff after review of the patient's medical history, current anesthetic/surgical status and plan, according to the Provider Handoff Checklist. 0955 Stop Meds Name Total Propofol 290 mg Propofol INF 1,315.14 mg Succinylcholine 100 mg Glucagon 0.5 mg lactated ringers infusion 1,000 mL * Agents Name O2 Auxiliary Flowmeter 1 * Blood No blood administrations on file. Lines, Drains, and Airways Type Details Placement Removal Incision 08/19/17; 0801; abdo men; laparoscopic punctures (specify); three trocar sites; 01/14/22 (LDA cleanup utility RA#[id number]); 1715 (LDA cleanup utility RA#[id number]) 08/19/17 0801 by Chadwick Perez RN 01/14/22 1715 by Saba Herring (RETIRED) Peripheral IV Line - Single Lumen 11/07/21; 0750; metacarpal vein (top of hand), right; qlyd-zxv-agyihu catheter system; 22 gauge; intradermal injection; LDA not present upon assessment; 06/23/23; 1025 11/07/21 0750 by Rebeca Whiting RN 06/23/23 1025 by Sonia Duran, RN ETT Mask Ventilation: Kirill baker (1); ETT Type: Cuffed, Oral; ETT Size: 7 mm; Thorpe Blade: 2; Notes: Asleep, Pre-O2, Stylette; Attempts: 1; Laryngoscopy Grade: 1; ETT Placement Verified By: Auscultation, Capnometry, Visual; Secured at Teeth: 21 cm; Inserted by: susan evangelista crna; Removal Date: 06/23/23; Removal Time: 1025 11/07/21 0856 by Arnoldo Angel CRNA 06/23/23 1025 by Sonia Duran RN documented in this [...] OR Notes * Anesthesia Postprocedure Evaluation - Alona Holliday MD - 11/07/2021 10:40 AM EDT Department of Anesthesiology Post-procedure Note Patient: Nikia Denotn Procedure Summary Date: 11/07/21 Room / Location: [facility] ENDO 2 / [facility] ENDOSCOPY Anesthesia Start: 827 Anesthesia Stop: 954 Procedures: UPPER EUS- ENDOSCOPIC ULTRASOUND (N/A Trunk) ERCP W/SPHINCTEROTOMY/PAPILLOTOMY (N/A Trunk) ERCP W/REMOVAL CALCULI/DEBRIS FROM BILARY/PANCREATIC DUCT(S) Diagnosis: (EUS and possible ERCP (pending EUS findings) within 2 weeks for) (possible retained gallstones suggested on outside MRI imaging in) (setting of abdo pain; post CCY.) Surgeons: Guillermo Omer MD Responsible Provider: Alona Holliday MD Anesthesia Type: general ASA Status: 3 All Anesthesia Providers: Anesthesiologist: Alona Holliday MD CABLE TOOL OPERATOR: Arnoldo Angel CRNA Vitals Value Taken Time BP 136/92 11/07/21 1030 Temp Pulse Resp 18 11/07/21 1020 SpO2 98 % 11/07/21 1040 Pain Level 0 11/07/21 1005 Vitals shown include unvalidated device data. Patient Location: PACU/[facility] Level of Consciousness: Awake and Alert Pain Management: Satisfactory Analgesia PONV: None Cardiovascular Status: At Baseline and Hemodynamically Stable Respiratory Status: At Baseline and Room Air Postoperative Fluid Status: Intravascular EUvolemia Possible Anesthetic Complications: NONE apparent at time of evaluation Final Primary Anesthesia Type: General (The anesthetic type performed was the same as planned.) Comments: ALONA HOLLIDAY MD * Anesthesia Preprocedure Evaluation - Alona Holliday MD - 11/06/2021 8:55 PM EDT Images from the original note were not included. Pre-Anesthesia Evaluation for: Nikia Denton a 55 y.o. female. Procedure(s): UPPER EUS- ENDOSCOPIC ULTRASOUND ERCP Patient Active Problem List Diagnosis Date Noted [...] 2.23) performed by Kody Toth MD at [facility] MAIN OR ? ? PRO LAPAROSCOPY W TOT HYSTERECTUTERUS <=250 GRAM W TUBE/OVARY N/A 08/19/2017 LAPAROSCOPY, TOTAL HYST, UTERUS<250GMS, REM TUBE &/OR OVARY (WRVU 15) performed by Kody Toth MD at [facility] MAIN OR Social History Tobacco Use ??? Smoking status: Current Every Day Smoker Packs/day: 0.50 Types: Cigarettes ??? Smokeless tobacco: Never Used Substance Use Topics ??? Alcohol use: No Social History Substance and Sexual Activity Drug Use No Allergies Allergen Reactions ??? Latex Rash ??? Other [Unclassified Drug] Rash Strawberries ??? Pcn [Penicillins] Causes multiple infections Medications: MAR and/or home medications have been reviewed. Physical Exam: Preprocedure Vitals Current as of 11/06/212054 No BP, pulse, respiration, SpO2, or temperature recorded. Height: Weight: BMI: IBW: Airway Assessment: Mallampati: II TM distance: >3 FB Neck ROM: full Cardiovascular Assessment: Rhythm: regular system normal Pulmonary Assessment: breath sounds clear to auscultation (+) decreased breath sounds Dental Assessment: - normal exam Misc Assessment: IV access: Peripheral line Last Filed Perioperative Cognitive Screening None Anesthesia Plan: ASA 3 general, with a(n) intravenous induction 55yoF, 95 kg (BMI 33), for ERCP for presumed common bile duct stone 2 months after cholecystectomt. PMH includes HTN (ARB, CCB), LBBB, BERTA on CPAP, fibromyalgia, GERD (PPI), depression/insomnia, juvenile RA Plan: GETA The patient verbalized understanding of the anesthesia plan including risks and alternatives and agreed to proceed. All questions were answered. Erik Holliday MD. Region - Other Informed Consent: Anesthetic plan and risks discussed with patient. Plan discussed with CABLE TOOL OPERATOR and attending. Anesthesia Screening documented in this encounter Plan of Treatment Not on file documented as of this encounter Visit Diagnoses Not on filedocumented in this encounter Administered Medications Inactive Administered Medications - up to 3 most recent administrations Medication Order MAR Action Action Date Dose Rate Site glucagon (Glucagen) (1 mg/mL) injection solution Intramuscular, PRN, Starting on Fri11/07/21 at 0928, Until Fri11/07/21 at 0955, Anesthesia Intra-op, Routine Given 11/07/2021 9:28 AM EDT 0.5 mg lactated ringers infusion 100 mL/hr, Intravenous, CONTINUOUS, Starting on Fri11/07/21 at 0800, Until Fri11/07/21 at 1409, Endoscopy (Day of Procedure) Restarted 11/07/2021 8:33 AM EDT New Bag 11/07/2021 7:50 AM EDT 100 mL/hr 100 mL/hr propofoL (Diprivan) (10 mg/mL) infusion Intravenous, CONTINUOUS PRN, Starting on Fri11/07/21 at 0833, Until Fri11/07/21 at 0955, Anesthesia Intra-op, Routine Rate/Dose Change 11/07/2021 9:05 AM EDT 250 mcg/kg/min 142.95 mL/hr New Bag 11/07/2021 8:33 AM EDT 150 mcg/kg/min 85.77 mL/ hr propofoL (Diprivan) 10 mg/mL bolus injection (Anesthesia) Intravenous, PRN, Starting on Fri11/07/21 at 0833, Until Fri11/07/21 at 0955, Anesthesia Intra-op Given 11/07/2021 9:05 AM EDT 50 mg Given 11/07/2021 8:55 AM EDT 40 mg Given 11/07/2021 8:54 AM EDT 100 mg succinylcholine (Anectine;Quelicin) (20 mg/mL) injection Intravenous, PRN, Starting on Fri11/07/21 at 0854, Until Fri11/07/21 at 0955, Anesthesia Intra-op, Routine Given 11/07/2021 8:54 AM EDT 100 mg documented in this encounter Care Teams Head Sawyer Automatic Relationship Specialty Start Date End Date Moise Lala MD PCP - General Family Medicine 06/26/17 02/15/24 documented as of this encounter
--- OUTSIDE RECORDS SUMMARY | 2024-05-26 13:19 | XMS_ITS | Encounter Summary ---
[place] [address] Care Team Providers Care Concrete Mixer Name Role Phone Moise Lala MD Primary Care Provider [phone] Reason for Referral * Consultation (Routine) - Closed Specialty Diagnoses / Procedures Referred By Contac t Referred To Contact Gastroenterology Diagnoses Enlarged liver Fatty liver RUQ pain Diarrhea, unspecified type fatty liver/ ruq pain/diarrhea Yasmeen Lala APRN [address] [place] [address] [facility] [address] [place] [id number] Referral ID Status Reason Start Date Expiration Date V isits Requested Visits Authorized [id number] Closed Consult, Test & Treat PCP Updated and/or Approved 01/15/2023 01/15/2024 12 12 Encounter Details Date Type Department Care Team (Latest Contact Info) Description 01/15/2023 Transcribe Orders eDH Incoming Referrals [phone] Yasmeen Lala APRN [address] [place] [address] Enlarged liver; Fatty liver; RUQ pain; Diarrhea, unspecified type Social History Tobacco Use Types Packs/Day Years [...] Schedule Referral to Gastroenterology Outpatient Referral Routine Enlarged liver Fatty liver RUQ pain Diarrhea, unspecified type Ordered: 01/15/2023 documented as of this encounter Visit Diagnoses Diagnosis Enlarged liver Hepatomegaly Fatty liver Other chronic nonalcoholic liver disease RUQ pain Abdominal pain, right upper quadrant Diarrhea, unspecified type documented in this encounter Care Teams Concrete Mixer Relationship Specialty Start Date End Date Moise Lala MD PCP - General Family Medicine 06/26/17 02/15/24 documented as of this encounter
--- OUTSIDE RECORDS SUMMARY | 2024-05-26 13:19 | XMS_ITS | Encounter Summary ---
[place] [address] Care Team Providers Care Registered Appraiser Name Role Phone Moise Lala MD Primary Care Provider [phone] Encounter Details Date Type Department Care Team (Late st Contact Info) Description 08/08/2017 3:45 PM EDT [place] [phone] Social History Tobacco Use Types Packs/Day Years [...] on filedocumented in this encounter Care Teams Registered Appraiser Relationship Specialty Start Date End Date Moise Lala MD PCP - General Family Medicine 06/26/17 02/15/24 documented as of this encounter
--- OUTSIDE RECORDS SUMMARY | 2024-05-26 13:19 | XMS_ITS | Encounter Summary ---
Author Organization [facility] [place] [address] Care Team Providers Care Crossbar Switch Adjuster Name Role Phone Moise Lala MD Primary Care Provider [phone] Reason for Visit * Auth/Cert Specialty Diagnoses [...] EUS- ENDOSCOPIC ULTRASOUND ERCP Guillermo Omer MD [facility] [place] [address] [facility] Referral ID Status Reason Start Date Expiration Date Visits Re quested Visits Authorized [id number] 1 1 Encounter Details Date Type Department Care Team (Late st Contact Info) Description 11/07/2021 7:55 AM EDT Ancillary [place] [phone] Social History Tobacco Use Types Packs/Day Years [...] XR ERCP Routine 11/07/2021 9:46 AM EDT documented in this encounter Results * XR ERCP (11/07/2021 9:46 AM EDT) Narrative [facility] - 11/07/2021 9:47 AM EDT See PACS for result report. Guillermo Omer MD IMG FILM LIBRARY ORD ERABLES Performing Organization Address City/State/[facility] Co de Phone Number [place], [place] documented in this encounter Visit Diagnoses Not on filedocumented in this encounter Care Teams Crossbar Switch Adjuster Relationship Specialty Start Date End Date Moise Lala MD PCP - General Family Medicine 06/26/17 02/15/24 documented as of this encounter
--- OUTSIDE RECORDS SUMMARY | 2024-05-26 13:19 | XMS_ITS | Encounter Summary ---
Author Organization [facility] [place] [address] Care Team Providers Care Sales Account Manager Name Role Phone Moise Lala MD Primary Care Provider [phone] Encounter Details Date Type Department Care Team (Latest Contact Info) Description 03/30/2020 4:56 PM EST - 03/30/2020 11:59 PM EST Hospital [place] [phone] Discharge Disposition: Home Social History Tobacco Use [...] 2,000 unit Tablet Take by mouth daily. nicotine (NICODERM CQ) 21 mg/24 hr Patch [...] 04/02/2011 04/08/2023 documented as of this encounter Plan of Treatment Not on file documented as of this encounter Procedures Procedure Name Priority Date/Time Associated Diagnosis Comments COVID-19 PCR Routine 03/30/2020 10:57 AM EST documented in this encounter Results * COVID-19 PCR (03/30/2020 10:57 AM EST) SARS-CoV-2 RNA Not Detected Not Detected [facility] Comment: This result should be interpreted in combination with the clinical observations, patient history and epidemiological information in making a final diagnosis. For testing of asymptomatic individuals, assay performance characteristics and clinical utility have not been evaluated. Testing for SARS-CoV-2 (Severe acute respiratory syndrome coronavirus 2, formerly known as 2019 novel coronavirus or 2019-nCoV) to aid in the diagnosis of COVID-19 is performed using the [employer] RealTime SARS-CoV-2 Assay as authorized by the FDA Emergency Use Authorization (EUA). This EUA assay is intended for In-vitro Diagnostic (IVD) use with respiratory specimens such as nasopharyngeal swabs collected from individuals during the acute phase of infection. This assay is performed based on the instructions for use provided by [employer] and additional guidance provided by CDC and FDA. Testing is performed in the [facility] Laboratory within the Department of Pathology and Laboratory Medicine at [facility], certified under the Clinical Laboratory Improvement Amendments of 1988 (CLIA), 42 U.S.C. 263a, to perform high complexity tests. Assay performance has been verified according to clinical laboratory regulatory requirements for use with specimens collected from individuals suspected of COVID-19. Test results are provided above. A result of ? Not Detected? indicates that the viral RNA target is not present above the limit of detection, but does not preclude SARS-CoV-2 infection. False negative results may occur if a specimen is improperly collected, transported or handled; if amplification inhibitors are present; or if inadequate numbers of viral particles are present in the specimen. When a diagnostic test is negative, the possibility of a false negative result should be considered in the context of a patient? s recent exposures and the presence of clinical signs and symptoms consistent with COVID-19. A result of ? Detected? indicates that RNA from SARS-CoV-2 was detected and the patient is infected. As required or requested by public health authorities, positive specimens may be sent for additional testing. Positive and negative predictive values for this test are highly dependent on disease prevalence. A result of ? Invalid? indicates that neither the viral RNA targets nor the internal control target was detected. An invalid result suggests the presence of inhibitors. Recollection and re-testing is recommended in the case of an invalid result. CDC COVID-19 criteria for testing on human specimens and clinical management guidance information are available at the CDC Coronavirus Disease 2019 (COVID-19) webpage under ? Information for Healthcare Professionals? (https://www.cdc.gov/coronavirus/2019-ncov/hcp/index.html) Additional information about this and other EUA tests can be found in provider and patient fact sheets at the following FDA website: https://www.fda.gov/medical-devices/udjljmqsszr-isdcssj-5035-opbph-37-bnarodhoz- use-a bclatwghmgwmb-vpldbsx-oskfysf/hmahh-unevwanhrnw-ltmb SARS-CoV-2 RNA Source [facility] Specimen from nose (specimen) Other / Unknown 03/30/2020 10:57 AM EST 03/31/2020 12:48 AM EST Narrative Resulting Agency Comment Spec In Lab Shruthi Mars DO MOLECULAR ORDERABLES Performing Organization Address City/State/[facility] Co de Phone Number [facility] [place] [address] documented in this encounter Visit Diagnoses Not on filedocumented in this encounter Care Teams Sales Account Manager Relationship Specialty Start Date End Date Moise Lala MD PCP - General Family Medicine 06/26/17 02/15/24 documented as of this encounter
--- OUTSIDE RECORDS SUMMARY | 2024-05-26 13:19 | XMS_ITS | Encounter Summary ---
Author Organization [facility] Address [facility] [place] [address] Care Team Providers Care Rhia Name Role Phone Moise Lala MD Primary Care Provider [phone] Encounter Details Date Type Department Care Team (Latest Contact Info) Description 08/08/2017 6:08 PM EDT - 08/08/2017 11:59 PM EDT Hospital Encounter XRay at [address] [place] [phone] Kody Toth MD Preop testing Discharge Disposition: Home Social History Tobacco Use [...] mg Capsule Take by mouth daily. 03/02/2024 NAPROXEN ORAL Take 200 mg by mouth 2 times daily as needed. 08/20/2017 acetaminophen (TYLENOL) 500 mg tablet Take 1,000 mg by mouth every 6 hours as needed. 08/20/2017 traZODone (DESYREL) 50 mg tabletIndications:Insom cristina Take by mouth. 1-2 tablets at HS 90 tablet 0 04/02/2011 04/08/2023 documented as of this encounter Plan of Treatment Not on file documented as of this encounter Procedures Procedure Name Priority Date/Time Associated Diagnosis Comments XR CHEST PA AND LATERAL Routine 08/08/2017 6:12 PM EDT Preop testing documented in this encounter Results * XR Chest PA & Lateral (Generic) (08/08/2017 6:12 PM EDT) Anatomical Region Laterality Modality Chest N/A Digital Radiogra phy Impressions 08/08/2017 6:33 PM EDT No significant abnormality. Narrative 08/08/2017 6:33 PM EDT EXAMINATION: XR CHEST PA AND LATERAL (GENERIC) CLINICAL HISTORY: Pre-op , smoker, obesity, BERTA TECHNIQUE: Standing PA and lateral chest COMPARISON: None FINDINGS: The lungs are clear. The cardiomediastinal silhouette and jose d appear normal. No pleural effusion or significant bone abnormality is seen. Procedure Note Alexis William MD - 08/08/2017 EXAMINATION: XR CHEST PA AND LATERAL (GENERIC) CLINICAL HISTORY: Pre-op , smoker, obesity, BERTA TECHNIQUE: Standing PA and lateral chest COMPARISON: None FINDINGS: The lungs are clear. The cardiomediastinal silhouette and jose d appearnormal. No pleural effusion or significant bone abnormality is seen. IMPRESSION No significant abnormality. Kody Toth MD IMG DX ORDERABLES documented in this encounter Visit Diagnoses Diagnosis Preop testing Preoperative examination, unspecified documented in this encounter Care Teams Rhia Relationship Specialty Start Date End Date Moise Lala MD PCP - General Family Medicine 06/26/17 02/15/24 documented as of this encounter
--- OUTSIDE RECORDS SUMMARY | 2024-05-26 13:20 | XMS_ITS | Encounter Summary ---
[place] [address] Care Team Providers Care Certified Medical Coder Name Role Phone Moise Lala MD Primary Care Provider [phone] Reason for Visit * Reason Onset Date Comments Vaginal Bleeding 08/01/2017 Encounter Details Date Type Department Care Team (Late st Contact Info) Description 08/01/2017 Telephone Obstetrics [place] [address] Naty Lovelace RN Vaginal Bleeding Social History Tobacco Use Types Packs/Day Years Used Date Smoking Tobacco: Every Day Cigarettes Smokeless Tobacco: Never Sex and Gender Information Value Date Recorded Sex Assigned at Not on file Gender Identity Not on file Sexual Orientation Not on file documented as of this encounter Miscellaneous Notes * Telephone Encounter - Naty Lovelace RN - 08/01/2017 1:01 PM EDT TELEPHONE NOTE Caller: Naty Lovelace RN Reason for call: Patient had written to report heavy vaginal bleeding, stating wanting Dr. Toth to be aware of that. Assessment: States the bleeding is a lot less today. Did not seem to be aware of message from requesting patient to consult with PCP for pre-op lab and glucose stability in preparation for hysterectomy. Plan/Instructions: Verbalizing understanding and acceptance to follow up right away for bleeding > or equal to a pad an hour for 4 hours, dizziness or light headedness, shortness of breath, severepain. States will set up as instructed with PCP. I work right in his office. documented in this encounter Plan of Treatment Not on file documented as of this encounter Visit Diagnoses Not on filedocumented in this encounter Care Teams Certified Medical Coder Relationship Specialty Start Date End Date Moise Lala MD PCP - General Family Medicine 06/26/17 02/15/24 documented as of this encounter
--- OUTSIDE RECORDS SUMMARY | 2024-05-26 13:20 | XMS_ITS | Encounter Summary ---
[place] [address] Care Team Providers Care Funeral Arrangement Director Name Role Phone Moise Lala MD Primary Care Provider [phone] Encounter Details Date Type Department Care Team (Late st Contact Info) Description 07/11/2017 Telephone Obstetrics [place] [phone] Kody Toth MD Social History Tobacco Use Types Packs/Day Years Used Date Smoking Tobacco: Every Day Cigarettes Smokeless Tobacco: Never Sex and Gender Information Value Date Recorded Sex Assigned at Not on file Gender Identity Not on file Sexual Orientation Not on file documented as of this encounter Miscellaneous Notes * Telephone Encounter - Kody Toth MD - 07/11/2017 6:03 PM EST ?? Surgical Pathology DIAGNOSIS Endometrial biopsy: ?1. Fragments of benign disordered proliferative endometrium ? intermixed with blood clot. ?2. No evidence of hyperplasia or endometritis. CR-0 Electronically signed by: ??Gomez BLUE, John Arias Verified: ??07/07/2017 ?Pathologist Performed at: ??-[facility] Dept. of Pathology, [place], [place] Patient contacted with endometrial biopsy results and discussion of next steps. I've recommended medical management with cyclic versus continuous progestins as a next step, eitherorla, parenteral, or via LNG-IUD. Lucy would like to discuss this further with her family and will call the office next week with her decision. documented in this encounter Plan of Treatment Not on file documented as of this encounter Visit Diagnoses Not on filedocumented in this encounter Care Teams Funeral Arrangement Director Relationship Specialty Start Date End Date Moise Lala MD PCP - General Family Medicine 06/26/17 02/15/24 documented as of this encounter
--- OUTSIDE RECORDS SUMMARY | 2024-05-26 13:20 | XMS_ITS | Encounter Summary ---
[place] [address] Care Team Providers Care Gis Coordinator Name Role Phone Moise Lala MD Primary Care Provider [phone] Encounter Details Date Type Department Care Team (Late st Contact Info) Description 08/08/2017 5:05 PM EDT Laboratory [place] [phone] Social History Tobacco Use Types Packs/Day Years [...] on filedocumented in this encounter Care Teams Gis Coordinator Relationship Specialty Start Date End Date Moise Lala MD PCP - General Family Medicine 06/26/17 02/15/24 documented as of this encounter
--- OUTSIDE RECORDS SUMMARY | 2024-05-26 13:20 | XMS_ITS | Encounter Summary ---
Author Organization [facility] [place] [address] Care Team Providers Care Auto Parts Manager Name Role Phone Moise Lala MD Primary Care Provider [phone] Encounter Details Date Type Department Care Team (Late st Contact Info) Description 07/21/2017 Orders Only Obstetrics [place] [id number] Kody Toth MD Abnormal uterine bleeding; Morbid obesity; Obstructive sleep apnea; Tobacco use disorder; Hypertension Social History Tobacco Use Types Packs/Day Years Used Date Smoking Tobacco: Every Day Cigarettes Smokeless Tobacco: Never Sex and Gender Information Value Date Recorded Sex Assigned at Not on file Gender Identity Not on file Sexual Orientation Not on file documented as of this encounter Progress Notes * Kody Toth MD - 07/21/2017 7:47 AM EST Images from the original note were not included. Merly Hull Timothy J, MD ? Cc: Susie Cox ? Caller: Patient (1 week ago, ??2:05 PM) ? Patient called and would like to proceed with scheduling a hysterectomy. Please call the patient back at [phone] (cell#) with any questions or to schedule the appointment. August: When you call the patient to schedule this, please let her know about her insurance coverage, etc or who to contact to confirm coverage for this procedure. Thanks, Merly documented in this encounter Plan of Treatment Not on file documented as of this encounter Visit Diagnoses Diagnosis Abnormal uterine bleeding Unspecified disorder of menstruation and other abnormal bleeding from female genital tract Morbid obesity Obstructive sleep apnea Obstructive sleep apnea (adult) (pediatric) Tobacco use disorder Hypertension Unspecified essential hypertension documented in this encounter Care Teams Auto Parts Manager Relationship Specialty Start Date End Date Moise Lala MD PCP - General Family Medicine 06/26/17 02/15/24 documented as of this encounter
--- OUTSIDE RECORDS SUMMARY | 2024-05-26 13:20 | XMS_ITS | Encounter Summary ---
[place] [address] Care Team Providers Care Communications Strategist Name Role Phone Moise Lala MD Primary Care Provider [phone] Reason for Visit * Reason Comments Vaginal Bleeding Encounter Details Date Type Department Care Team (Latest Contact Info) Description 07/01/2017 4:00 PM EST Office Visit Obstetrics [place] [address] Kody Toth MD Abnormal perimenopausal bleeding Social History Tobacco Use Types Packs/Day Years Used Date Smoking Tobacco: Every Day Cigarettes Smokeless Tobacco: Never Sex and Gender Information Value Date Recorded Sex Assigned at Not on file Gender Identity Not on file Sexual Orientation Not on file documented as of this encounter Last Filed Vital Signs Vital Sign Reading Time Taken Comments Blood Pressure 142/81 07/01/2017 3:51 PM EST Pulse 104 07/01/2017 3:51 PM EST Temperature 36.6 ??C (97.8 ??F) 07/01/2017 3:51 PM ES T Respiratory Rate - - Oxygen Saturation 100% 07/01/2017 3:51 PM EST Inhaled Oxygen Concentration - - Weight 112.9 kg (249 lb) 07/01/2017 3:51 PM EST Height 167.6 cm (5' 6) 07/01/2017 3:51 PM EST Body Mass Index 40.19 07/01/2017 3:51 PM EST documented in this encounter Patient Instructions * Patient Instructions* Kody Toth MD - 07/01/2017 4:00 PM EST As we discussed, your bleeding symptoms are likely from an imbalance of estrogen and progesterone that is common during the menopause transition. Because this imbalance (ongoing estrogen production without counterbalancing progesterone) can cause precancerous changes or even cance within the uterus, it is important that we definitively rule this out. Biopsy results will be back in about a week. I will also request a copy of the pathology report from Dr. Lala's office for comparison. Next steps will depend on those results, but might include treatment with progesterone through the end of the menopause transition, a procedure called hysteroscopy/D&C, or hysterectomy. documented in this encounter Progress Notes * Kody Toth MD - 07/01/2017 4:00 PM EST Images from the original note were not included. Referral from Moise Lala MD, [place] is a 51-year-old [facility] Reason for referral and chief complaint: Postmenopausal bleeding HPI: Lucy 2 [address] Moise Lala for further evaluation of perimenopausal abnormal vaginal bleeding. She is accompanied by her mother, Thais. The patient reports an essentially lifelong history of irregular menses since menarche at age 13. She reportedly underwent an infertility evaluation when she was younger to include hysterosalpingogram. She spontaneously conceived at age 41 and again at age 43, both pregnancies unfortunately resulting in miscarriage at 8 and 12 weeks estimated gestational age respectively. She underwent a D&C f or her second miscarriage. She is the mother of 4 adopted siblings. Lucy reports irregular and prolonged episodes of [...] which she has had a negative urinalysis. Review of systems: She denies constitutional symptoms including weight loss, fever, chills, loss ofappetite. She reports no change in her bowel habit. She denies vaginal discharge. 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 She is a less than one half packper day smoker who is not currently interested in quitting. She is a nondrinker. She and her , [employer], have been for 11 years. ARTIST BLACKSMITH history: As per the HPI. Family history is unremarkable, specifically negative for colon, uterine, breast, ovarian cancers. Physical examination: BP 142/81 Pulse (!) 104 Temp 36.6 ??C (97.8 ??F) (Oral) Ht 167.6 cm (5' 6) Wt 112.9 kg (249 lb) LMP 02/28/2017 (Approximate) SpO2 100% BMI 40.19 kg/m2 She is well appearing, pleasant, cooperative in no distress. Neck is supple without thyromegaly. Lungs are clear to auscultation bilaterally. Heart is regular without murmur gallop. Abdomen is soft, nondistended, nontender with normal bowel sounds no appreciable masses. : External genitalia unremarkable. Vaginal vault and cervix are well supported, nulliparous, no lesions or discharge. Following a brief verbal description of the procedure, verbal consent was obtained from the patient. She stated her name, date of , and procedure to be performed in a time out procedure prior to beginning. A speculum was placed in the vagina without difficulty visualizing the cervix. A single-tooth tenaculum was placed on the anterior lip of the cervix. A pipelle was placed through the cervix without difficulty. The uterus sounded to 8cm. A biopsy was obtained in 360 degree fashion. Tissue was placedinto formalin for pathologic specimen and labeled with her name and date of . The patient tolerated the procedure well with minimal bleeding. Bimanual examination reveals a retroverted mobile normal size uterus with no adnexal masses. Pelvic ultrasound from [facility] dated June 25, 2017: The uterus isretroverted. It measures 9.2 cm long by 4.1 cm AP by 6 cm transverse. The endometrial stripe measures 1 cm. It is somewhat heterogenous in echogenicity. No abnormal blood flow or discrete mass is seen. There is a 1.3 cm hypoechoic mass in the anterior body of the uterus, suspicious for a fibroid. It does not distort the contour of the uterus. Both ovaries are visualized. They are normal in size and appearance. No free pelvic fluid or hydronephrosis is identified. Incidental note is made of increased echogenicity of the liver, suspicious for fatty infiltration. Impression: Perimenopausal abnormal uterine bleeding Discussion and plan: Lucy seems intent on pursuing a hysterectomy. I explained that this may not be necessary. We briefly discussed the physiology of perimenopausal abnormal bleeding. I discussed the importance of ruling out endometrial hyperplasia or cancer. We briefly discussed use of local or systemic progestins. We discussed the potential diagnostic and therapeutic benefit of hysteroscopy, D&C. We briefly discussed definitive surgical management via hysterectomy, although I have reassured her that nonoperative intervention will likely resolve her bleeding and allow her to transition fully to the post menopause. I appreciate the opportunity to participate in her care. I will contact her via the [facility] portal with results of her biopsy. documented in this encounter Plan of Treatment Not on file documented as of this encounter Procedures Procedure Name Priority Date/Time Associated Diagnosis Comments SPECIMEN TO PATHOLOGY Routine 07/01/2017 5:38 PM EST Abnormal perimenopausal bleeding SURGICAL PATHOLOGY REPORT Routine 07/01/2017 5:15 PM EST documented in this encounter Results * Specimen to Pathology (07/01/2017 5:38 PM EST) AP Specimen 07/01/2017 5:38 PM EST 07/01/2017 5:38 PM EST Narrative [facility] - 07/01/2017 5:38 PM EST Specimen requisition ordered. ??Separate Pathology report to follow Kody Toth MD PATHOLOGY/CYTOLOGY O RDERABLES [facility] [place] [address] * Surgical Pathology Report (07/01/2017 5:15 PM EST) Final Diagnosis [id number] ? Location: 5L The signing pathologist has (i) examined the relevant preparation(s) for the specimen(s) and (ii) rendered or confirmed the diagnosis(es). . ?Surgical Pathology DIAGNOSIS Endometrial biopsy: ?? 1. Fragments of benign disordered proliferative endometrium ?intermixed with blood clot. ?? 2. No evidence of hyperplasia or endometritis. CR-0 Electronically signed by: ??Gomez BLUE, John Arias Verified: ??07/07/2017 ?Pathologist Performed at: ??-[facility] Dept. of Pathology, [place], [place] CLINICAL INFORMATION Specimen Submitted: A - Endometrial biopsy Clinical History: 51-year-old with AUB Clinical Diagnosis: Same SPECIMEN PROCESSING A - Labeled/Fixative: Patient demographics, formalin. Quantity/Size: Fragments, 2.0 x 1.4 x 0.1 cm. Tissue Description: Tissue fragments and blood clot. Sections/Processi ng: (T1) ??apb 07/07/2017 1:45 PM EST [facility] ENDOMETRIAL STRUCTURE / Unknown 07/01/2017 5:15 PM EST 07/01/2017 5:15 PM EST Kody Toth MD PATHOLOGY/CYTOLOGY O RDALEVRTO [facility] [place] [address] documented in this encounter Visit Diagnoses Diagnosis Abnormal perimenopausal bleeding Premenopausal menorrhagia documented in this encounter Care Teams Communications Strategist Relationship Specialty Start Date End Date Moise Lala MD PCP - General Family Medicine 06/26/17 02/15/24 documented as of this encounter
--- OUTSIDE RECORDS SUMMARY | 2024-05-26 13:20 | XMS_ITS | Encounter Summary ---
Author Organization [facility] [place] [address] Care Team Providers Care Junior Assistant Manager Name Role Phone Moise Lala MD Primary Care Provider [phone] Reason for Visit * Reason Comments Pre-op Exam Encounter Details Date Type Department Care Team (Late st Contact Info) Description 08/08/2017 3:30 PM EDT Office Visit Obstetrics [place] [address] Nroeen Dawson MD [facility] OBSTETRICS & [place] [address] Preop testing Social History Tobacco Use Types Packs/Day Years Used Date Smoking Tobacco: Every Day Cigarettes Smokeless Tobacco: Never Sex and Gender Information Value Date Recorded Sex Assigned at Not on file Gender Identity Not on file Sexual Orientation Not on file documented as of this encounter Last Filed Vital Signs Vital Sign Reading Time Taken Comments Blood Pressure 128/76 08/08/2017 3:21 PM EDT Pulse 87 08/08/2017 3:21 PM EDT Temperature 36.9 ??C (98.4 ??F) 08/08/2017 3:21 PM ED T Respiratory Rate - - Oxygen Saturation 99% 08/08/2017 3:21 PM EDT Inhaled Oxygen Concentration - - Weight 114.5 kg (252 lb 6.4 oz) 08/08/2017 3:21 PM EDT Height 167.6 cm (5' 6) 08/08/2017 3:21 PM EDT Body Mass Index 40.74 08/08/2017 3:21 PM EDT documented in this encounter Progress Notes * Noreen Dawson M - 08/08/2017 3:30 PM EDT GYNECOLOGY PRE-OPERATIVE ASSESSMENT Date of Visit: 08/08/2017 Planned Procedure: total laparoscopic hysterectomy HPI: Nikia Denton is a 51 y.o. female with PMH of obesity, BERTA, here in preoperative consultation. She was initially evaluatd 07/01/[address] Toth for complaint of heavy and prolonged perimenopausal abnormal bleeding, with associated menorrhagia. At that visit she underwent endometrial biopsy with the following findings: ?1. Fragments of benign disordered proliferative endometrium ? intermixed with blood clot. ?2. No evidence of hyperplasia or endometritis. Recommendation was made for medical management with cyclic versus continuous progestins as a next step, either mateus, parenteral, or via LNG-IUD. Nikia's strong preference was for definitive management with TLH. Pre-op clearance obtained per her PCP Dr. Lala at [facility] on visit 08/07/2017. Briefly, all chronic medical conditions are stable, recommended continue chronic medications through surgery, ok to hold metformin; encouraged smoking cessation. She has a recent EKG 06/2017 obtained for complaint of dizziness, notable for LBBB which has been present since ~2013. REVIEW OF SYSTEMS/FUNCTIONAL STATUS: Review of Systems - Negative except as per HPI Bleeding disorder (h/o nose bleeds, excessive bleeding following a surgical procedure?): [X] No Personal or Family history of blood clots?: [X] No No LMP recorded. Patient is not currently having periods (Reason: Perimenopausal). Contraception: NA Past anesthesia problems?:[X] No HISTORY Supervising Deputy history and paps: OB History Para Term AB Living 2 0 SAB TAB Ectopic Multiple Live Births Patient Active Problem List Diagnosis Code ??? Hypertension I10 ??? Fibromyalgia M79.7 ??? Tobacco use disorder F17.200 ??? Gastroesophageal reflux K21.9 ??? Chronic anxiety with deprressed mood F41.9 ??? Obstructive sleep apnea G47.33 ??? Eczema L30.9 ??? Hyperlipidemia E78.5 ??? Alopecia L65.9 ??? Glucose intolerance (impaired glucose tolerance) R73.02 ??? Morbid obesity E66.01 ??? Abnormal uterine bleeding N93.9 History reviewed. No pertinent past medical history. History reviewed. No pertinent surgical history. FAMILY HISTORY family history is not on file. SOCIAL HISTORY Social History Occupational History ??? Not on file. Social History Main Topics ??? Smoking status: Current Every Day Smoker Packs/day: 0.50 Types: Cigarettes ??? Smokeless tobacco: Never Used ??? Alcohol use Not on file ??? Drug use: Not on file ??? Sexual activity: Not on file reports that she has been smoking Cigarettes. She has been smoking about 0.50 packs per day. She has never used smokeless tobacco. Allergies Allergen Reactions ??? Latex Rash ??? Other [Unclassified Drug] Rash Strawberries ??? Pcn [Penicillins] Causes multiple infections Outpatient Prescriptions Marked as Taking for the 08/08/17 encounter (Office Visit) with Noreen Dawson MD Medication Sig Dispense Refill ??? buPROPion (WELLBUTRIN XL) 150 mg Tablet Extended Release 24 hr 0 ??? tiZANidine (ZANAFLEX) 2 mg Tablet ??? triamcinolone (KENALOG) 0.1 % Cream apply to ECZEMA ON HANDS twice a day 0 ??? amLODIPine (NORVASC) 5 mg Tablet take 1 tablet by mouth once daily 0 ??? atorvastatin (LIPITOR) 40 mg Tablet Take 40 mg by mouth daily. 0 ??? metFORMIN (GLUCOPHAGE-XR) 500 mg Tablet Sustained Release 24 hr take 1 tablet by mouth daily 0 ??? omeprazole (PRILOSEC) 40 mg Capsule, Delayed Release(E.C.) Take 40 mg by mouth 2 times daily. 1 ??? cyanocobalamin 500 mcg Tablet Take 500 mcg by mouth daily. ??? cholecalciferol, Vitamin D3, 2,000 unit Tablet Take by mouth daily. ??? Biotin 5 mg Capsule Take by mouth daily. ??? [DISCONTINUED] DULoxetine (CYMBALTA) 30 mg Capsule, Delayed Release(E.C.) Take 30 mg by mouth daily. 0 ??? NAPROXEN ORAL Take 200 mg by mouth 2 times daily as needed. ??? acetaminophen (TYLENOL) 500 mg tablet Take 1,000 mg by mouth every 6 hours as needed. ??? traZODone (DESYREL) 50 mg tablet Take by mouth. 1-2 tablets at HS 90 tablet 0 Wt Readings from Last 3 Encounters: 08/08/17 114.5 kg (252 lb 6.4 oz) 07/01/17 112.9 kg (249 lb) 04/02/11 (!) 109.8 kg (242 lb) Body mass index is 40.74 kg/(m^2). Most Recent Vitals: 08/08/17 1521 BP: 128/76 Pulse: 87 Temp: 36.9 ??C (98.4 ??F) SpO2: 99% Physical Exam: On exam she appeared her stated age and in no acute distress. Skin:non-diaphoretic, without rash/lesions Neurological: She is alert and oriented to person, place, and time. Psychiatric: Affect is appropriate. HEENT: Normocephalic. Anicteric, normal scleral and conjunctivae. Neck is supple without thyromegaly or lymphadenopathy Lungs were clear to auscultation bilaterally. Heart regular rate and rhythm without murmurs or gallops. The abdomen was soft, non-tender, and without guarding or rebound. No masses or organomegaly. Examination of the extremities revealed no cyanosis, clubbing or edema. Pelvic Exam: Deferred to OR Lab/ Radiology Review Results for orders placed or performed in visit on 08/08/17 EKG 12 Lead Result Value Ref Range Ventricular rate 81 BPM Atrial Rate 81 BPM P-R Interval 164 ms QRS Duration 162 ms Q-T Interval 454 ms QTC Calculated (Bezet) 527 ms Calculated P [place] 50 degrees Calculated R [place] 7 degrees Calculated T [place] 121 degrees INTERPRETATION Normal sinus rhythm Left bundle branch block Abnormal ECG No previous ECGs available ASSESSMENT: 51 y.o. female seen today in preoperative consultation for laparoscopic hysterectomy for abnormal uterine bleeding. PLAN: ??? We will proceed with the above procedures ??? Anesthesia preference: per anesthesia, referred for PAT today ??? (X) Medications and herbal preparations reviewed Discussed: (X) Discontinuation of all herbal preparations, vitamin E 7-10 days preop (X) ASA, NSAIDS, Plavix: ?? (x) Discontinue Solid foods at midnight ??? (X) Clear liquids (water, apple juice, ike kaitlin, or black coffee) may be consumed until 2 hours prior to scheduled procedure. Informed consent: was obtained This procedure has been fully reviewed with the patient, including risks of bleeding, infection, damage to surrounding structures, need for conversion to open procedure, need for additional procedures including possible oophorectomy and written informed consent has been obtained. ACUTE OPIOID CONSENT AND RISK ASSESSMENT: No flowsheet data found. Opioid Risk Tool Female Male 1. Family history of Substance Abuse Alcohol [] 1 [] 3 Illegal Drugs [] 2 [] 3 Prescription Drugs [] 4 [] 4 2. Personal History of Substance Abuse Alcohol [] 3 [] 3 Illegal Drugs [] 4 [] 4 Prescription Drugs [] 5 [] 5 3. Age (candy box if 16-45) [] 1 [] 1 4. History of Preadolescent Sexual Abuse [] 3 [] 0 5. Psychological Disease Attention Deficit Disorder, Obsessive Compulsive D/o, Bipolar, Schizophrenia [] 2 [] 2 Depression [] 1 [] 1 TOTAL: 0 Opioid Risk Category: low risk 0-3 Comments about ORT in relation to this patient: I discussed the plan for acute post-operative pain management with the patient, including the use of non-narcotic medications, heat, and supportive measures. The patient did sign the [facility] acute narcotic consent form in anticipation of typical post-operative opioid therapy for approximately 3-5 days. Patient discussed and seen with Dr. Toth, attending MD Noreen Dawson MD, PGY-1 * Kody Toth MD - 08/08/2017 3:30 PM EDT I saw Nikia Denton with Dr. Dawson and was present for hackett portions of today's visit. The assessment and plan were formulated in discussion with me and I agree with them as documented in the resident's note. Kody Toth MD 08/18/2017 6:23 PM documented in this encounter Plan of Treatment Not on file documented as of this encounter Procedures Procedure Name Priority Date/Time Associated Diagnosis Comments EKG 12-LEAD Routine 08/08/2017 5:38 PM EDT Preop testing documented in this [...] abnormality. Kody Toth MD IMG DX ORDERABLES * Comprehensive metabolic panel (non-fasting) (08/08/2017 5:59 PM EDT) Glucose 101 65 - 199 mg/dL [facility] Comment:Diabetes: >=200 mg/d L plus symptoms Blood Urea Nitrogen 16 8 - 18 mg/dL [facility] Creatinine 0.82 0.70 - 1.20 mg/dL [facility] Sodium 137 135 - 145 mmol/L [facility] Potassium 4.0 3.5 - 5.0 mmol/L [facility] Comment: Please note: ??Patients with WBC >100,000 may have falsely elevated Potassium levels. ??For accurate Potassium quantification in these patients send serum separator tube (gold top) for subsequent determinations. ??Contact the Clinical Chemistry Laboratory if there are any questions. Chloride 98 98 - 107 mmol/L [facility] Carbon Dioxide 27 22 - 31 mmol/L [facility] Anion Gap 12 5 - 15 mmol/L [facility] Calcium 9.3 8.5 - 10.5 mg/dL [facility] Protein, Total 7.3 6.1 - 8.0 gm/dL [facility] Albumin 4.3 3.2 - 5.2 gm/dL [facility] Aspartate Aminotransferase 8 0 - 30 unit/L [facility] Alanine Aminotransferase 19 0 - 30 unit/L [facility] Alkaline Phosphatase 104 40 - 104 unit/L [facility] Bilirubin, Total 0.2 0.2 - 1.3 mg/dL [facility] Est Glomerular Filtration Rate >60 >=60 [facility] Comment: The reported eGFR should be multiplied by 1.2 for patients. The MDRD is not an appropriate measure of renal function for patients with body mass extremes or in patients with acute kidney failure. http://[employer]/DHnkdep http://[employer]/DHMCnkf Blood specimen (specimen) 08/08/2017 5:59 PM EDT 08/08/2017 6:03 PM EDT Narrative Resulting Agency Comment Spec In Lab Kody Toth MD CHEMISTRY ORDERABLES [facility] [place] [place] [address] * EKG 12 Lead (08/08/2017 5:38 PM EDT) Ventricular rate 81 BPM MUSE SYSTEM Atrial Rate 81 BPM MUSE SYSTEM P-R Interval 164 ms MUSE SYSTEM QRS Duration 162 ms MUSE SYSTEM Q-T Interval 454 ms MUSE SYSTEM QTC Calculated (Bezet) 527 ms MUSE SYSTEM Calculated P [place] 50 degrees MUSE SYSTEM Calculated R [place] 7 degrees MUSE SYSTEM Calculated T [place] 121 degrees MUSE SYSTEM INTERPRETATION Normal sinus rhythm Left bundle branch block Abnormal ECG No previous ECGs available Confirmed by MD Dwayne, Stan Pritchett ([id number]) on 08/09/2017 11:08:09 AM MUSE SYSTEM 08/08/2017 5:38 PM EDT 08/09/2017 11:08 AM EDT Kody Toth MD ECG ORDERABLES MUSE SYSTEM documented in this encounter Visit Diagnoses Diagnosis Preop testing Preoperative examination, unspecified Preop testing Preoperative examination, unspecified documented in this encounter Care Teams Junior Assistant Manager Relationship Specialty Start Date End Date Moise Lala MD PCP - General Family Medicine 06/26/17 02/15/24 documented as of this encounter
--- OUTSIDE RECORDS SUMMARY | 2024-05-26 13:20 | XMS_ITS | Encounter Summary ---
Author Organization [facility] [place] [address] Care Team Providers Care Nerve Specialist Name Role Phone Yumiko Barahona MD Primary Care Provider [phone] Reason for Visit * Reason Onset Date Comments Advice Only 12/30/2013 Encounter Details Date Type Department Care Team (Late Contact Info) Description 12/30/2013 [place] [address] Yvan Garner MD [facility] [place] [address] Advice Only Social History Tobacco Use Types Packs/Day Years Used Date Smoking Tobacco: Every Day Cigarettes Sex and Gender Information Value Date Recorded Sex Assigned at Not on file Gender Identity Not on file Sexual Orientation Not on file documented as of this encounter Miscellaneous Notes * Telephone Encounter - Yvan Garner - 12/30/2013 1:38 AM EDT Telephone Note Caller: Dr. Peters ([facility]) Reason: Advice Discussion: 48 yo obese female patient w/ a PMH significant for GERD and Fibromyalgia presents to [facility] with chest pains and SOB with some radiation into her back. The symptoms started at 6PM. She received nitro, a GI cocktail and ASA and her symptoms improved. She had a cardiac work up in the past for similar symptoms and was found (per her report) to have normal coronary arteries. Her ECG is aLBBB but they have no old ones to compare (and neither to we). The patient is reported has having improved symptoms when she belches. Her Trops are negative, D-Dimer is negative and the rest of labs and CXR are completely normal. His assessment is atypical CP and would like recommendations. A/P: 48 yo female patient with known prior normal coronaries with recurrent atypical CP. Labs are normal. Trops neg (pain began at 6PM so over 7 hours since pain onset). The patient is HD stable. My impressions is that this likely represents non-cardiac chest pain, however, it would not be unreasonable to treat with heparin while awaiting appropriate non-invasive testing. The presence of her LBBBcannot exclude ischemic disease. No scarbossa's criteria are present when discussed with Dr. Peters. I do not feel this represents a STEMi equivalent based on the information provided. Dr. Peters will admit to his hospital for observation and stress testing. Instructed to call back if symptoms progress or the patient declines. documented in this encounter Plan of Treatment Not on file documented as of this encounter Visit Diagnoses Not on filedocumented in this encounter Care Teams Nerve Specialist Relationship Specialty Start Date End Date Yumiko Barahona MD [address] [place] [id number] PCP - General 03/25/11 06/25/17 documented as of this encounter
--- OUTSIDE RECORDS SUMMARY | 2024-05-26 13:20 | XMS_ITS | Encounter Summary ---
Author Organization [facility] [place] [address] Care Team Providers Care Edge Glue Machine Tender Name Role Phone Moise Lala MD Primary Care Provider [phone] Encounter Details Date Type Department Care Team (Late st Contact Info) Description 08/08/2017 4:20 PM EDT Clinical [place] [address] Social History Tobacco Use Types Packs/Day Years Used Date Smoking Tobacco: Every Day Cigarettes Smokeless Tobacco: Never Sex and Gender Information Value Date Recorded Sex Assigned at Not on file Gender Identity Not on file Sexual Orientation Not on file documented as of this encounter Progress Notes * Thais Wilkerson RN - 08/08/2017 4:20 PM EDT PAT questionnaire reviewed with patient while in Pre Admission testing. Pre- operative instruction booklet reviewed. Patient verbalizes a good understanding of all information reviewed. Anesthesia cx obtained as well. PLAN: Testing: Sent for T&Sc; bloodwork; CXR Special medication instructions: Hold Metformin x 72 hours Procedure date: 08/19 Navneet documented in this encounter Plan of Treatment Not on file documented as of this encounter Visit Diagnoses Not on filedocumented in this encounter Care Teams Edge Glue Machine Tender Relationship Specialty Start Date End Date Moise Lala MD PCP - General Family Medicine 06/26/17 02/15/24 documented as of this encounter
--- OUTSIDE RECORDS SUMMARY | 2024-05-26 13:20 | XMS_ITS | Encounter Summary ---
Author Organization [facility] [place] [address] Care Team Providers Care Center Sales And Service Associate Name Role Phone Yumiko Barahona MD Primary Care Provider Reason for Visit * Reason Comments Rheumatoid Arthritis Encounter Details Date Type Department Care Team (Late st Contact Info) Description 04/02/2011 8:45 AM EST Office [place] [id number] Alexis Kamara MD [facility] [place] [address] [place] [address] Insomnia; Sleep apnea; Trochanteric bursitis Discharge Disposition: Home Social History Tobacco Use Types Packs/Day Years Used Date Smoking Tobacco: Every Day Cigarettes Tobacco Cessation:Ready to Q uit: Yes Sex and Gender Information Value Date Recorded Sex Assigned at Not on file Gender Identity Not on file Sexual Orientation Not on file documented as of this encounter Last Filed Vital Signs Vital Sign Reading Time Taken Comments Blood Pressure 118/76 04/02/2011 9:06 AM EST Pulse 92 04/02/2011 9:06 AM EST Temperature 36.8 ??C (98.2 ??F) 04/02/2011 9:06 AM ES T Respiratory Rate 18 04/02/2011 9:06 AM EST Oxygen Saturation 97% 04/02/2011 9:06 AM EST Inhaled Oxygen Concentration - - Weight 109.8 kg (242 lb) 04/02/2011 9:06 AM EST Height 167 cm (5' 5.75) 04/02/2011 9:06 AM EST Body Mass Index 39.36 04/02/2011 9:06 AM EST documented in this encounter Patient Instructions * Patient Instructions* Alexis Kamara MD - 04/02/2011 9:51 AM EST 1. Call if pain returns in hips 2. See sleep specialist for CPAP 3. Trazodone 50-75-100 mg at bedtime for sleep ~6 hours. May use 1/2 tablet if too much 4. 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 This episode began a couple of months ago, after gradual progression, began having trouble typing, writing with aching with activity. Went to see PCP, told her had normal x-rays, recommended conservative therapy without benefit. Changed to Dr. Barahona, who suggested referral. Some benefit with NSAIDs, Tylenol and tramadol. Other joint involvement involve hips, knees, left hallux numbness/pain as well as anterior chest pain, wrists. AM stiffness lasts 30+ minutes. Hip pain is with ambulation as well as limits ability to sleep. Hurts to walk. Hips keep her awake at night, has to change sides frequently. Non-restorative sleep decade plus, frequent awakening, snoring, no restless legs. Sleep study showed that she should use a CPAP in [place], 2 years ago. Mother notes apnea. Awakes tired every dose. Other Medical Problems. 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 Treated at [facility] and indomethacin worked the best, then slowlyfaded away. 2. Three adopted children: Miscarried 3 x at 3 months 3. Reported pericardial effusion after echo for chest pain, 2007, 4. D/C Review of Systems Constitutional: No fevers, chills, malaise. Skin: no rashes HEENT: no sicca sx, change in hearing, taste sinus pain, PINTO, change in taste. Respiratory: no chest pain, shortness of breath CV: no ALEJO, angina sx, claudication Back: No sciatica, pain with standing GI: no abd pain, normal bowel movements : no dysuria, normal voiding, no nocturia Neuro: no focal deficit Social History: , smokes 1/2 ppd, no alcohol, drinks 2 cups in am. No exercise. Family Hx: Father of lung cancer age 72; sibs overweight, hyperlipidemia Physical Exam: Blood pressure 118/76, pulse 92, temperature 36.8 ??C (98.2 ??F), temperature sourceOral, resp. rate 18, height 167 cm (5' 5.75), weight 109.77 kg (242 lb), SpO2 97.00%. Skin negative. HEENT: negative Neck supple. Chest/Cor/Abd normal. Back normal SLR. No trigger points. Joint exam; Absence of trigger points. Shoulders/Elbows/Wrists/Hands all normal. Sternochondral joints very tender. Hips: Full motion with marked trochanteric tenderness bilaterally. Knees/Ankles neg. Feet: left hallux limitus. Neuro non focal exam. Assess: Despite a hx of JRA and the presence of inflammatory type hand sx, the exam is unrevealing.This is likely to be mostlysleep disturbance with disordered sleep due to trochanteric pain, . Whatever features of inflammation are likely to be much less important. Plan: 1. Inject greater trochanters 2. Trial of trazodone 50-100 mg at HS 3. Sleep clinic referral and CPAP fitting: strongly urged this 4. If no response after 3-4 months of CPAP would be willing to see in follow up. Procedure notes: A time out was taken. The risks and benefits were discussed with the patient and they agreed to the procedure. The left and right greater trocanter was prepped with betadine and thenethyl chloride spray was used for local anesthesia. Each trochanter was injected with Depo Medrol 40 mg + 3 cc Marcaine 0.75% 2cc and tolerated well. The pain immediately decreased following the procedure. Level 4 consultation with 2 procedures. Alexis Kamara M.D. documented in this encounter Plan of Treatment Not on file documented as of this encounter Visit Diagnoses Diagnosis Insomnia Insomnia, unspecified Sleep apnea Unspecified sleep apnea Trochanteric bursitis Enthesopathy of hip region documented in this encounter Administered Medications Inactive Administered Medications - up to 3 most recent administrations Medication Order MAR Action Action Date Dose Rate Site BUpivacaine (PF) (MARCAINE) 0.75 % (7.5 mg/mL) injection 15 mg 15 mg (2 mL), Intra-articular, ONCE, 1 dose, On Fri04/02/11 at 1015, Routine Given 04/02/2011 10:10 AM EST 15 mg methylPREDNISolone acetate (depo-MEDROL) injection 40 mg 40 mg, Intra-articular, ONCE, 1 dose, On Fri04/02/11 at 1015, Routine Given 04/02/2011 10:39 AM EST 40 mg methylPREDNISolone acetate (depo-MEDROL) injection 40 mg 40 mg, Intra-articular, ONCE, 1 dose, On Fri04/02/11 at 1015, Routine Given 04/02/2011 10:39 AM EST 40 mg documented in this encounter Care Teams Center Sales And Service Associate Relationship Specialty Start Date End Date Yumiko Barahona MD [address] [place] [address] PCP - General 03/25/11 06/25/17 documented as of this encounter
[2024-05-26 15:40] LABS: COMMENT (LAB VIEW ONLY) 189.81 mg/dL
[2024-05-26 15:48] LABS: HCT 34.4 % (36.0-46.0); HGB 10.6 g/dL (11.2-15.7); MCH 22.9 pg (27.0-33.0); MCHC 30.8 % (32.0-36.0); MCV 74 fL (80-95); MPV 10.6 fL (8.0-11.0); Platelet Count 270 10^3/uL (130-400); RBC 4.63 10^6/uL (3.93-5.22); RDW 17.3 % (11.7-14.6); RDW-SD 46.3 fL; WBC 6.65 10^3/uL (4.4-10.8)
[2024-05-26 16:05] LABS: ALT 50 U/L (14-59); AST 26 U/L (15-37); Albumin 3.6 g/dL (3.4-5.0); Alkaline Phosphatase 162 U/L (46-116); Anion Gap 9.1 mmol/L (3-11); BUN 14 mg/dL (7-18); Bilirubin, Total 0.25 mg/dL (0.2-1.0); CO2 27.9 mmol/L (21.0-32.0); CREATININE 0.8 mg/dL (0.55-1.02); Calcium 9.5 mg/dL (8.5-10.1); Chloride 101 mmol/L (98-107); Estimated GFR 85.89 (mL/min/1.73m2); FREE T4 0.86 ng/dL (0.76-1.46); Glucose 224 mg/dL (74-106); Potassium 4.3 mmol/L (3.5-5.1); Sodium 138 mmol/L (136-145); TSH 1.37 uIU/mL (0.36-3.74); Total Protein 7.3 g/dL (6.4-8.2)
[2024-05-26 16:25] LABS: Calculated LDL 178 mg/dL (<100); Cholesterol 287 mg/dL (<200); HDL Cholesterol 62 mg/dL (40-60); Triglyceride 239 mg/dL (<150)
[2024-06-01 00:58] LABS: Pregabalin (Lyrica) 0.2 mcg/mL (2.0-5.0)
== END 2024-05-26 13:16 | disposition home or self-care (01) ==
LOC: NCHCN 13:15
PROVIDERS: PCP Student in an Organized Health Care Education/Training Program; Visit Provider Student in an Organized Health Care Education/Training Program
DX: R55 Syncope and collapse (principal); E78.5 Hyperlipidemia, unspecified
CPT/HCPCS: 80053; 80061; 85027; 82043; 82542; 82570; 84439; 84443

== ENCOUNTER 2024-06-23 16:21 | Outpatient (REF) | payer OTHER, SELFPAY ==
[2024-06-23 15:19] LABS: HGB 10.6 g/dL (11.2-15.7); MCH 22.3 pg (27.0-33.0); MCHC 29.4 % (32.0-36.0); MCV 76 fL (80-95); MPV 9.9 fL (8.0-11.0); Platelet Count 263 10^3/uL (130-400); RBC 4.76 10^6/uL (3.93-5.22); RDW 16.9 % (11.7-14.6); WBC 5.49 10^3/uL (4.4-10.8)
[2024-06-23 16:02] LABS: ALT 55 U/L (14-59); AST 22 U/L (15-37); Albumin 3.7 g/dL (3.4-5.0); Alkaline Phosphatase 155 U/L (46-116); Anion Gap 8.3 mmol/L (3-11); BUN 17 mg/dL (7-18); Bilirubin, Total 0.24 mg/dL (0.2-1.0); CO2 26.7 mmol/L (21.0-32.0); CREATININE 0.8 mg/dL (0.55-1.02); Calcium 9.4 mg/dL (8.5-10.1); Chloride 101 mmol/L (98-107); Estimated GFR 85.89 (mL/min/1.73m2); Ferritin 7 ng/mL (8-252); Folate 8.3 ng/mL (8.6-20.0); Glucose 164 mg/dL (74-106); Potassium 3.9 mmol/L (3.5-5.1); Sodium 136 mmol/L (136-145); Total Protein 7.4 g/dL (6.4-8.2); Vitamin B12 > 2000 pg/mL (193-986)
[2024-06-23 16:08] LABS: GGT 64 U/L (5-55)
--- OUTSIDE RECORDS SUMMARY | 2024-06-23 16:23 | XMS_ITS | Encounter Summary ---
Author Organization [facility] Address [address] [place] [address] Care Team Providers Care Test Center Manager Name Role Phone Unknown, Provider Primary Care Provider Unava ilable Encounter Details Date Type Department Care Team (Latest Contact Info) Description 05/04/2013 14:27 EST - 05/04/2013 23:59 EST Hospital Encounter [address] [address] Unknown, Provider, Discharge Disposition: Home or Self [...] Code Departure Means Destination Home or Self Longterm documented in this encounter Plan of Treatment Not on file documented as of this encounter Visit Diagnoses Not on filedocumented in this encounter Care Teams Test Center Manager Relationship Specialty Start Date End Date Unknown, Provider, PCP - General 03/13/12 05/05/13 documented as of this encounter
--- OUTSIDE RECORDS SUMMARY | 2024-06-23 16:23 | XMS_ITS | Encounter Summary ---
Author Organization [facility] Address [address] [place] [address] Care Team Providers Care Physical Education Specialist Name Role Phone Buster Campos APRN Primary Care Provider [phone] Encounter Details Date Type Department Care Team (Latest Contact Info) Description 06/11/2017 10:37 EST - 06/11/2017 23:59 EST Hospital Encounter [address] [address] Unknown, Provider, MD Discharge Disposition: Home or [...] Code Departure Means Destination Home or Self [facility] documented in this encounter Plan of Treatment Not on file documented as of this encounter Visit Diagnoses Not on filedocumented in this encounter Care Teams Physical Education Specialist Relationship Specialty Start Date End Date Buster Campos APRN [address] [place] [id number] PCP - General 05/06/13 07/25/19 documented as of this encounter
--- OUTSIDE RECORDS SUMMARY | 2024-06-23 16:23 | XMS_ITS | Encounter Summary ---
Author Organization [facility] Address [address] [place] [address] Care Team Providers Care Pressroom Foreman Name Role Phone Moise Lala MD Primary Care Provider [phone] Encounter Details Date Type Department Care Team (Late st Contact Info) Description 12/28/2021 Lab Requisition [facility] - Main [address] [id number] Twan Orellana MD [address] [place] [phone] Nausea with vomiting, unspecified; Right upper [...] explore management options, if applicable. 12/31/2021 11:36 [facility] Final Diagnosis A. DUODENUM, BIOPSY: - No diagnostic abnormality. - No features of sprue present. B. DUODENAL BULB, BIOPSY: - No diagnostic abnormality. - No features of sprue present. C. GASTRIC ANTRUM, BIOPSY: - Reactive gastropathy. - Negative for intestinal metaplasia and dysplasia. D. GASTRIC BODY, BIOPSY: - No diagnostic abnormality. 12/31/2021 11:36 [facility] Attestation By the signature below, the attending physician certifies that they have 1) personally conducted a gross and/or microscopic examination of the described specimen(s), and/or personally interpreted the results of laboratory testing of the described specimen(s), and 2) personally rendered or confirmed the above diagnosis. 12/31/2021 11:36 [facility] at 1136 Clinical History RUQ pain, epigastric pain, N/V GERD, diarrhea, 12/31/2021 11:36 [facility] Gross Description A. The specimen [...] Marley Meeks 12/28/2021 14:42 12/31/2021 11:36 EDT [facility] Performing Lab [facility] 12/31/2021 11:36 EDT [facility] Scanned Images 12/31/2021 11:36 EDT [facility] Tissue DUODENAL STRUCTURE / Unknown 12/27/2021 12:55 EDT 12/28/2021 12:03 EDT Tissue specimen (specimen) DUODENAL AMPULLA STRUCTURE / Unknown 12/27/2021 12:55 EDT 12/28/2021 12:03 EDT Tissue specimen (specimen) PYLORIC ANTRUM STRUCTURE / Unknown 12/27/2021 12:55 EDT 12/28/2021 12:03 EDT Tissue specimen (specimen) GASTRIC CORPUS STRUCTURE / Unknown 12/27/2021 12:55 EDT 12/28/2021 12:03 EDT us Twan Orellana MD PATHOLOGY ORDERABLES Final Result [facility] [address] [place] [address] documented in this encounter Visit Diagnoses Diagnosis Nausea with vomiting, unspecified Right upper quadrant pain Abdominal pain, right upper quadrant Epigastric pain Abdominal pain, epigastric documented in this encounter Care Teams Pressroom Foreman Relationship Specialty Start Date End Date Moise Lala MD [address] [place] [address] PCP - General 07/17/21 documented as of this encounter
--- OUTSIDE RECORDS SUMMARY | 2024-06-23 16:23 | XMS_ITS | Referral Summary ---
Author Organization [facility] Address [address] [place] [address] Care Team Providers Care Tractor Trailer Technician Name Role Phone Moise Lala MD Primary Care Provider [phone] Social History Tobacco Use Types Packs/Day Years [...] ? POLY DENTON ? Accession #: ? [id number] ? : ? 1965 (Age: 50) ??F [...] types 16,18,31,33,35, 39,45,51,52,56,58, 59,66, and 68 by business director mediated amplification. Comments Document reviewed and electronically signed by: ? System Interface ? Report date: 07/29/2016 By the signature above, the attending physician certifies that he/she has personally conducted a gross and/or microscopic examination of the described specimens and rendered or confirmed the above diagnosis. End of Report [facility] 07/23/2016 07/24/2016 us Alec SEPULVEDA PATHOLOGY ORDERABLES Final Res ult [facility] [address] [place] [address] from Last 3 Months or Most Recently Relevant to Health Maintenance Insurance [employer] [place] [id number] Care Teams Tractor Trailer Technician Relationship Specialty Start Date End Date Moise Lala MD [address] [place] [address] PCP - General 07/17/21
--- OUTSIDE RECORDS SUMMARY | 2024-06-23 16:23 | XMS_ITS | Clinical Summary ---
Author Organization [facility] Address [address] [place] [address] Care Team Providers Care Sports Commentator Name Role Phone Moise Lala MD Primary Care Provider [phone] Social History Tobacco Use Types Packs/Day Years [...] ? POLY DENTON ? Accession #: ? [id number] ? : ? 1965 (Age: 50) ??F ?Collect Date: ? 07/23/2016 ? Location: ? [facility] ? Receive Date: ? 07/24/2016 ? Provider: ALEC MERA [facility] Copy to: ? Final Report SPECIMEN ADEQUACY [...] types 16,18,31,33,35, 39,45,51,52,56,58, 59,66, and 68 by title officer mediated amplification. Comments Document reviewed and electronically signed by: ? System Interface ? Report date: 07/29/2016 By the signature above, the attending physician certifies that he/she has personally conducted a gross and/or microscopic examination of the described specimens and rendered or confirmed the above diagnosis. End of Report [facility] 07/23/2016 07/24/2016 Alec Mera [facility] PATHOLOGY ORDERABLES Final Res ult Performing Organization Address City/State/[facility] Co de Phone Number [facility] [address] [place] [address] from Last 3 Months or Most Recently Relevant to Health [id number] [place] [id number] [employer] Care Teams Sports Commentator Relationship Specialty Start Date End Date Moise Lala MD [facility] [place] [address] PCP - General 07/17/21
--- OUTSIDE RECORDS SUMMARY | 2024-06-23 16:23 | XMS_ITS | Encounter Summary ---
[place] [address] Care Team Providers Care Park Worker Supervisor Name Role Phone Twan Pruitt Primary Care Provider + Encounter Details Date Type Department Care Team (Late st Contact Info) Description 03/02/2024 10:00 AM EDT Office Visit Cardiology at [address] [id number] Malivn Russo, BLANCA HFrEF (heart failure with reduced [...] this encounter Progress Notes * Malvin Russo, PER DIEM PHYSICAL THERAPIST ASSISTANT - 03/02/2024 10:00 AM EDT Images from the original note were not included. [facility] Section of Advanced Heart Failure Cardiology [facility] [place] [address] OUTPATIENT VISIT DATE: 03/01/24 OUTPATIENT VISIT TYPE: Follow up PRIMARY CARE PHYSICIAN: OTILIA Daigle REFERRING PHYSICIAN: No primary care provider on file. HPI iNkia Denton is a 58 y.o. F who is referred by Ana Maria Hendricks MD for evaluation of cardiomyopathy. 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 She was last seen by Dr. Hendricks in 02/2023 at [facility]. She reports a history of LBBB, reportedly back [id number], when she was in [place]. She reports that she had an echo [...] a significant family history, including dad with ME at age 48. She also has cousins [...] 2.23) performed by Kody Toth MD at [facility] MAIN OR PRO ENDOSCOPIC US EXAM, ESOPH N/A 11/07/2021 UPPER EUS- ENDOSCOPIC ULTRASOUND performed by Guillermo Omer MD at [facility] ENDOSCOPY PRO ERCP, SPHINCTEROTOMY N/A 11/07/2021 ERCP W/SPHINCTEROTOMY/PAPILLOTOMY performed by Guillermo Omer MD at [facility] ENDOSCOPY PRO ERCP, W/REMOVAL STONE, PEDRO/PANCR DUCTS 11/07/2021 ERCP W/REMOVAL CALCULI/DEBRIS FROM BILARY/PANCREATIC DUCT(S) performed by Guillermo Omer MD at [facility] ENDOSCOPY PRO LAPAROSCOPY W TOT HYSTERECTUTERUS <=250 GRAM W TUBE/OVARY N/A 08/19/2017 LAPAROSCOPY, TOTAL HYST, UTERUS<250GMS, REM TUBE &/OR OVARY (WRVU 15) performed by Kody Toth MD at [facility] MAIN OR PRO UPPER GI ENDOSCOPY, BIOPSY N/A 06/23/2023 EGD WITH BIOPSY (WRVU 2.39) performed by Thomas Hawthorne MD at [facility] ENDOSCOPY FAMILY HISTORY: Does have a significant family history, including dad with ME at age 48. 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, but due to consistent fatigue, had been [...] (Bezet) 506 ms MUSE SYSTEM Calculated P [place] 70 degrees MUSE SYSTEM Calculated R [place] 35 degrees MUSE SYSTEM Calculated T [place] 102 degrees MUSE SYSTEM INTERPRETATION Normal sinus rhythm Left bundle branch block Abnormal ECG When compared with ECG of 16-FEB-2024 09:58, No significant change was found Confirmed by MD Jeff, Clay ([id number]) on 03/02/2024 3:55:15 PM MUSE SYSTEM 03/02/2024 10:0 7 AM EDT 03/02/2024 3:55 PM EDT Unknown ECG ORDERABLES MUSE SYSTEM * TSH Rankin (03/02/2024 9:06 AM EDT) Thyroid Stimulating Hormone 1.29 0.27 - 4.20 mcIU/mL 03/02/2024 11:14 AM EDT [facility] Comment: Reference Interval (mcIU/mL): ?? Females: ? First Trimester: 0.23-3.88 ? Second Trimester: 0.22-3.90 ? Third Trimester: 0.44-4.66 Blood VENOUS BLOOD SPECIMEN / Unknown Venipuncture / Unknown 03/02/2024 9:06 AM EDT 03/02/2024 9:06 AM EDT Malvin Solis Liqukrysta PER DIEM PHYSICAL THERAPIST ASSISTANT CHEMISTRY ORDERABLE S [facility] [place] [address] * pro-Brain Natriuretic Peptide (03/02/2024 9:06 AM EDT) NT-proBNP 102 <=124 pg/mL 03/02/2024 11:14 AM EDT [facility] Blood VENOUS BLOOD SPECIMEN / Unknown Venipuncture / Unknown 03/02/2024 9:06 AM EDT 03/02/2024 9:06 AM EDT Malvin Russo PER DIEM PHYSICAL THERAPIST ASSISTANT CHEMISTRY ORDERABLE S Performing Organization Address City/[facility]/ZIP Co de Phone Number [facility] [place] [address] * Magnesium (03/02/2024 9:06 AM EDT) Magnesium 0.85 0.69 - 1.07 mMol/L 03/02/2024 11:14 AM EDT [facility] Blood VENOUS BLOOD SPECIMEN / Unknown Venipuncture / Unknown 03/02/2024 9:06 AM EDT 03/02/2024 9:06 AM EDT Malvin Solis Liqukrysta PER DIEM PHYSICAL THERAPIST ASSISTANT CHEMISTRY ORDERABLE S Performing Organization Address City/[facility]/ZIP Co de Phone Number [facility] [place] [address] * (ABNORMAL) Hepatic Function Panel (03/02/2024 9:06 AM EDT) Albumin 4.4 3.2 - 5.2 g/dL 03/02/2024 11:14 AM EDT [facility] Aspartate Aminotransferase 19 <=30 unit/L 03/02/2024 11:14 AM EDT [facility] Alanine Aminotransferase 30 0 - 30 unit/L 03/02/2024 11:14 AM EDT [facility] Alkaline Phosphatase 135(H) 35 - 105 unit/L 03/02/2024 11:14 AM EDT [facility] Bilirubin, Total 0.2 <=1.3 mg/dL 03/02/2024 11:14 AM EDT [facility] Bilirubin, Direct <0.2 0.0 - 0.3 mg/dL 03/02/2024 11:14 AM EDT [facility] Protein, Total 7.5 6.1 - 8.0 g/dL 03/02/2024 11:14 AM T [facility] Blood VENOUS BLOOD SPECIMEN / Unknown Venipuncture / Unknown 03/02/2024 9:06 AM EDT 03/02/2024 9:06 AM EDT Malvin Russo PER DIEM PHYSICAL THERAPIST ASSISTANT CHEMISTRY ORDERABLE S [facility] [place] [address] * (ABNORMAL) Basic Metabolic Panel Non-fasting (03/02/2024 9:06 AM EDT) Glucose 207(H) 65 - 199 mg/dL 03/02/2024 11:34 AM EDT [facility] Comment:Glucose Concentratio n >=200 mg/dL plus symptoms is consistent with Diabetes Mellitus. Blood Urea Nitrogen 19(H) 8 - 18 mg/dL 03/02/2024 11:34 AM EDT [facility] Creatinine 0.64(L) 0.70 - 1.20 mg/dL 03/02/2024 11:34 AM EDT [facility] Sodium 138 135 - 145 mMol/L 03/02/2024 11:[address] [facility] Potassium 4.4 3.5 - 5.0 mMol/L 03/02/2024 11:[address] [facility] Chloride 100 98 - 107 mMol/L 03/02/2024 11:[address] [facility] Carbon Dioxide 25 22 - 31 mMol/L 03/02/2024 11:[address] [facility] Anion Gap 13 5 - 15 mMol/L 03/02/2024 11:[address] [facility] Calcium 9.5 8.5 - 10.5 mg/dL 03/02/2024 11:[address] [facility] Est Glomerular Filtration Rate - Female 103 mL/min/1. 73 m?? 03/02/2024 11:[address] [facility] Comment: This patient's estimated GFR was [...] Fasting Status No 03/02/2024 11:34 AM T [facility] Blood VENOUS BLOOD SPECIMEN / Unknown Venipuncture / Unknown 03/02/2024 9:06 AM EDT 03/02/2024 9:06 AM EDT Malvin Russo PER DIEM PHYSICAL THERAPIST ASSISTANT CHEMISTRY ORDERABLE S [facility] [place] [address] documented in this encounter Visit Diagnoses Diagnosis HFrEF (heart failure with reduced ejection fraction) documented in this encounter Care Teams Park Worker Supervisor Relationship Specialty Start Date End Date Twan Pruitt PA Brennan [facility] [address] PCP - General Internal Medicine 02/16/24 documented as of this encounter
--- OUTSIDE RECORDS SUMMARY | 2024-06-23 16:23 | XMS_ITS | Encounter Summary ---
Author Organization [facility] Address [address] [place] [address] Care Team Providers Care Tenter Name Role Phone Unknown, Provider Primary Care Provider Unava ilable Encounter Details Date Type Department Care Team (Late st Contact Info) Description 05/04/2013 Results Only [facility] Laboratory Services - [facility] ([facility]) [address] [place] [address] Smita Sheth MD [address] [place] [address] [place] [address] Social History Tobacco Use Types Packs/Day Years [...] ? POLY DENTON ? Accession #: ? [id number] ? : ? 1965 (Age: 47) ??F ? Collect Date: ? 05/04/2013 ? Location: ? [facility] ? Receive Date: ? 05/04/2013 ? Provider: SMITA SHETH MD Copy to: OLAF JOHNSON MD ? Final Pathologic Diagnosis: ENDOMETRIUM, BIOPSY: - ??Proliferative endometrium with syncytial metaplasia and stromal breakdown. See comment. - ??Scant fragments of benign endocervical tissue. Comment: Manager Of Supply Chain sections of this case were reviewed at [...] ORDERABLES Final Resu lt NORA CHAVEZ [address] [place] [address] documented in this encounter Visit Diagnoses Not on filedocumented in this encounter Care Teams Tenter Relationship Specialty Start Date End Date Unknown, Provider, PCP - General 03/13/12 05/05/13 documented as of this encounter
--- OUTSIDE RECORDS SUMMARY | 2024-06-23 16:23 | XMS_ITS | Encounter Summary ---
Author Organization [facility] Address [address] [place] [address] Care Team Providers Care Quality Head Name Role Phone Unknown, Provider Primary Care Provider Moise Poole MD Primary Care Provider [phone] Encounter Details Date Type Department Care Team (Late st Contact Info) Description 10/20/2020 Lab Requisition [facility] Pathology & Laboratory Medicine - [facility] [address] [place] [address] Outr Resulting Lab, Provider Social History Tobacco [...] Lyme Ab Negative Negative 10/23/2020 10:47 EDT [facility] Comment:New 3rd generation a ssay in use 10/27/2019 Blood VENOUS BLOOD / Unknown 10/20/2020 12:39 EDT 10/20/2020 20:46 EDT us Provider Outr Resulting Lab IMMUNOLOGY AND SEROL OGY ORDERABLES Final Result [facility] [address] [place] [address] documented in this encounter Visit Diagnoses Not on filedocumented in this encounter Additional Health Concerns Infection Onset Date Last Indicated Resolved Time COVID-19 05/28/2021 05/28/2021 06/17/2021 22:1 5 EST documented as of this encounter Care Teams Quality Head Relationship Specialty Start Date End Date Unknown, Provider, PCP - General 04/03/20 07/16/21 Moise Lala MD [address] [place] [address] PCP - General 07/17/21 documented as of this encounter
--- OUTSIDE RECORDS SUMMARY | 2024-06-23 16:23 | XMS_ITS | Encounter Summary ---
Author Organization [facility] [place] [address] Care Team Providers Care Casting Chipper Name Role Phone Twan Pruitt Primary Care [...] on filedocumented in this encounter Care Teams Casting Chipper Relationship Specialty Start Date End [place] [address] PCP - General Internal Medicine 02/16/24 documented as of this encounter
--- OUTSIDE RECORDS SUMMARY | 2024-06-23 16:23 | XMS_ITS | Encounter Summary ---
[place] [address] Care Team Providers Care Converting Supervisor Name Role Phone Twan Pruitt Primary Care Provider + Reason for Visit * Reason Comments Chest Pain Encounter Details Date Type Department Care Team (Late st Contact Info) Description 03/02/2024 1:09 PM EDT - 03/02/2024 1:14 PM [place]T [place] [id number] Discharge Disposition: Home Social History Tobacco Use [...] Procedure Abnormality Status --------- ------ Troponin-T, High Sensiti...[[id number]] Normal Final result Troponin-T, High Sensiti...[[id number]] Please view results for these tests on [...] who have questions please contact the health md do resident urgent care that requested your imaging first. Electronically signed by: Lisa Palmer MD, Radiology [place] ([phone]), at 03/02/2024 11:29 AM Vivi Kidd MD 03/07/24 0234 * Starr Sampson RN - 03/02/2024 1:13 PM EDT Pt called back to go to room but reported that she wants to leave AMA. IV removed by [employer] and AMA paperwork signed. * Starr Taylor [...] Lateral (Generic) (03/02/2024 11:09 AM EDT) Pathologist [employer] WORKSTATION ID [id number] DH RAD Anatomical Region Laterality Modality Chest N/A Digital Radiogra phy Impressions 03/02/2024 11:29 AM EDT No acute findings Thank you for letting us participate in the care of this patient. ??If you are a health care provider and have any questions regarding this report, please contact the number below. ??For patients who have questions please contact the health md do resident urgent care that requested your imaging first. ? [...] patients who have questions please contactthe health md do resident urgent care that requested your imaging first. Vivi Kidd MD IMG DX ORDERABLES * Gold Tube HOLD (03/02/2024 11:02 AM EDT) Pathologist [facility] Gold Hold Hold for Add-on 03/02/2024 1:02 PM EDT [facility] Blood VENOUS BLOOD SPECIMEN / Unknown Venipuncture / Unknown 03/02/2024 11:02 AM EDT 03/02/2024 11:10 AM EDT Vivi Kidd MD CHEMISTRY ORDERABLES [facility] [place] [address] * Troponin-T, High Sensitivity (03/02/2024 11:02 AM EDT) Troponin-T, High Sensitivity Initial <6 <=14 ng/L 03/02/2024 12:07 PM EDT [facility] Comment: This patient's troponin T concentration [...] troponin value can be found in the [facility] Laboratory Test Catalog Troponin - [email or web address] Reference: Fourth [place] Definition of Myocardial Infarction. Journal of the [place] College of Cardiology 2018;72:2771-2689 Blood VENOUS BLOOD SPECIMEN / Unknown Venipuncture / Unknown 03/02/2024 11:02 AM EDT 03/02/2024 11:07 AM EDT Vivi Kidd MD CHEMISTRY ORDERABLES [facility] [place] [address] * Blue Tube HOLD (03/02/2024 11:02 AM EDT) Blue Hold Hold for Add-on 03/02/2024 1:02 PM EDT [facility] Blood VENOUS BLOOD SPECIMEN / Unknown Venipuncture / Unknown 03/02/2024 11:02 AM EDT 03/02/2024 11:07 AM EDT Vivi Kidd MD HEMATOLOGY ORDERABLE S [facility] [place] [address] * (ABNORMAL) Basic Metabolic Panel (03/02/2024 11:02 AM EDT) Pathologist [facility] Glucose 271(H) 65 - 199 mg/dL 03/02/2024 1:08 PM EDT [facility] Comment:Glucose Concentratio n >=200 mg/dL plus symptoms is consistent with Diabetes Mellitus. Blood Urea Nitrogen 18 8 - 18 mg/dL 03/02/2024 1:08 PM EDT [facility] Creatinine 0.61(L) 0.70 - 1.20 mg/dL 03/02/2024 1:08 PM EDT [facility] Sodium 136 135 - 145 mMol/L 03/02/2024 1:08 PM EDT [facility] Comment:This result was prev iously suppressed from the chart. Potassium 4.3 3.5 - 5.0 mMol/L 03/02/2024 1:08 PM EDT [facility] Comment:This result was prev iously suppressed from the chart. Chloride 101 98 - 107 mMol/L 03/02/2024 1:08 PM EDT [facility] Comment:This result was prev iously suppressed from the chart. Carbon Dioxide 21(L) 22 - 31 mMol/L 03/02/2024 1:08 PM EDT [facility] Anion Gap 14 5 - 15 mMol/L 03/02/2024 1:08 PM EDT [facility] Comment:This result was prev iously suppressed from the chart. Calcium 9.5 8.5 - 10.5 mg/dL 03/02/2024 1:08 PM EDT [facility] Est Glomerular Filtration Rate - Female 104 mL/min/1. 73 m?? 03/02/2024 1:08 PM EDT [facility] Comment: This patient's estimated GFR [...] AM EDT Vivi Kidd MD CHEMISTRY ORDERABLES [facility] [place] [address] * (ABNORMAL) CBC (with Diff) (03/02/2024 11:02 AM EDT) White Blood Cell 6.72 4.00 - 9.50 x10(3)/mc L 03/02/2024 11:18 AM EDT [facility] Red Blood Cell 4.60 4.00 - 5.21 x10(6)/mc L 03/02/2024 11:18 AM EDT [facility] Hemoglobin 10.6(L) 11.7 - 15.5 g/dL 03/02/2024 11:18 AM EDT [facility] Hematocrit 35.1(L) 35.7 - 45.8 % 03/02/2024 11:18 AM EDT [facility] Mean Cell Volume 76.3(L) 82.6 - [...] 0.90 x10(3)/mc L 03/02/2024 11:18 AM EDT [facility] Eos % 1.3 % 03/02/2024 11:18 AM EDT [facility] Eos Absolute 0.09 0.00 - 0.40 x10(3)/mc L 03/02/2024 11:18 AM EDT [facility] Basophil % 0.9 % 03/02/2024 11:18 AM EDT [facility] Baso Absolute 0.06 0.00 - 0.10 x10(3)/mc L 03/02/2024 11:18 AM EDT [facility] Immature Gran % 0.3 % 11:18 AM EDT [facility] Immature Gran Absolute <0.04 0.00 - 0.04 x10(3)/mc L 03/02/2024 11:18 AM EDT [facility] Blood VENOUS BLOOD SPECIMEN / Unknown Venipuncture / Unknown 03/02/2024 11:02 AM EDT 03/02/2024 11:07 AM EDT Vivi Kidd MD HEMATOLOGY ORDERABLE S Performing Organization Address City/State/[facility] Co de Phone Number [facility] [place] [address] * EKG 12 Lead (03/02/2024 10:46 AM EDT) Ventricular rate 68 BPM MUSE SYSTEM Atrial Rate 68 BPM MUSE SYSTEM P-R Interval 170 ms MUSE SYSTEM QRS Duration 164 ms MUSE SYSTEM Q-T Interval 478 ms MUSE SYSTEM QTC Calculated (Bezet) 508 ms MUSE SYSTEM Calculated P [place] 33 degrees MUSE SYSTEM Calculated R [place] 11 degrees MUSE SYSTEM Calculated T [place] 129 degrees MUSE SYSTEM INTERPRETATION Normal sinus rhythm Left bundle branch block Abnormal ECG When compared with ECG of 02-MAR-2024 10:07, (unconfirmed) No significant change was found Confirmed by MD Jeff, Clay ([id number]) on 03/02/2024 3:55:19 PM MUSE SYSTEM 03/02/2024 10:4 6 AM EDT 03/02/2024 3:55 PM EDT Vivi Kidd MD ECG ORDERABLES [employer] documented in this encounter Visit Diagnoses Not on filedocumented in this encounter Active and Recently Administered Medications Times are shown in EDT. Scheduled Medication Order 02/29/2024 03/01/2024 03/02/2024 aspirin chewable tablet 324 mg 324 mg, Oral, ONCE, 1 dose, On Fri03/02/24 at 1050, Unless allergic or given Prior To Admission (JERKER). If partial dose administered JERKER administer remaining MG for a total dose of 325 mg/day., STAT 1050 (Due) documented in this encounter Care Teams Converting Supervisor Relationship Specialty Start Date End Date Twan Pruitt PA [address] [place] [address] PCP - General Internal Medicine 02/16/24 documented as of this encounter
--- OUTSIDE RECORDS SUMMARY | 2024-06-23 16:23 | XMS_ITS | Encounter Summary ---
Author Organization [facility] [place] [address] Care Team Providers Care Machine Driller Name Role Phone Twan Pruitt Primary Care [...] on filedocumented in this encounter Care Teams Machine Driller Relationship Specialty Start Date End [place] [address] PCP - General Internal Medicine 02/16/24 documented as of this encounter
--- OUTSIDE RECORDS SUMMARY | 2024-06-23 16:23 | XMS_ITS | Encounter Summary ---
Author Organization [facility] Address [address] [place] [address] Care Team Providers Care Furniture Finisher Helper Name Role Phone Unknown, Provider Primary Care Provider Moise Poole MD Primary Care Provider [phone] Encounter Details Date Type Department Care Team (Late st Contact Info) Description 10/18/2020 Lab Requisition [facility] Pathology & Laboratory Medicine - [facility] [address] [place] [address] Outr Resulting Lab, Provider Social History Tobacco [...] Lyme Ab Negative Negative 10/19/2020 11:09 EDT [facility] Comment:New 3rd generation a ssay in use 10/27/2019 Blood VENOUS BLOOD / Unknown 10/18/2020 11:32 EDT 10/18/2020 20:52 EDT us Provider Outr Resulting Lab IMMUNOLOGY AND SEROL OGY ORDERABLES Final Result [facility] [address] [place] [address] documented in this encounter Visit Diagnoses Not on filedocumented in this encounter Additional Health Concerns Infection Onset Date Last Indicated Resolved Time COVID-19 05/28/2021 05/28/2021 06/17/2021 22:1 5 EST documented as of this encounter Care Teams Furniture Finisher Helper Relationship Specialty Start Date End Date Unknown, Provider, PCP - General 04/03/20 07/16/21 Moise Lala MD [address] [facility] [place] [address] PCP - General 07/17/21 documented as of this encounter
--- OUTSIDE RECORDS SUMMARY | 2024-06-23 16:23 | XMS_ITS | Encounter Summary ---
[place] [address] Care Team Providers Care Baggage Clerk Name Role Phone Twan Pruitt Primary Care Provider + Encounter Details Date Type Department Care Team (Latest Contact Info) Description 03/02/2024 9:00 AM EDT Laboratory Appointment Lab [address] [place] [address] HFrEF (heart failure with reduced [...] documented in this encounter Results * TSH [place] (03/02/2024 9:06 AM EDT) Thyroid Stimulating Hormone 1.29 0.27 - 4.20 mcIU/mL 03/02/2024 11:14 AM EDT [facility] Comment: Reference Interval (mcIU/mL): ?? Females: ? First Trimester: 0.23-3.88 ? Second Trimester: 0.22-3.90 ? Third Trimester: 0.44-4.66 Blood VENOUS BLOOD SPECIMEN / Unknown Venipuncture / Unknown 03/02/2024 9:06 AM EDT 03/02/2024 9:06 AM EDT Malvin Russo WEB GRAPHIC DESIGNER CHEMISTRY ORDERABLE S [facility] [place] [address] * pro-Brain Natriuretic Peptide (03/02/2024 9:06 AM EDT) NT-proBNP 102 <=124 pg/mL 03/02/2024 11:14 AM EDT [facility] Blood VENOUS BLOOD SPECIMEN / Unknown Venipuncture / Unknown 03/02/2024 9:06 AM EDT 03/02/2024 9:06 AM EDT Malvin Russo WEB GRAPHIC DESIGNER CHEMISTRY ORDERABLE S [facility] [place] [address] * Magnesium (03/02/2024 9:06 AM EDT) Magnesium 0.85 0.69 - 1.07 mMol/L 03/02/2024 11:14 AM EDT [facility] Blood VENOUS BLOOD SPECIMEN / Unknown Venipuncture / Unknown 03/02/2024 9:06 AM EDT 03/02/2024 9:06 AM EDT Malvin Russo WEB GRAPHIC DESIGNER CHEMISTRY ORDERABLE S Performing Organization Address City/[facility]/ZIP Co de Phone Number [facility] [place] [address] * (ABNORMAL) Hepatic Function Panel (03/02/2024 9:06 AM EDT) Albumin 4.4 3.2 - 5.2 g/dL 03/02/2024 11:14 AM EDT [facility] Aspartate Aminotransferase 19 <=30 unit/L 03/02/2024 11:14 AM EDT [facility] Alanine Aminotransferase 30 0 - 30 unit/L 03/02/2024 11:14 AM EDT [facility] Alkaline Phosphatase 135(H) 35 - 105 unit/L 03/02/2024 11:14 AM EDT [facility] Bilirubin, Total 0.2 <=1.3 mg/dL 03/02/2024 11:14 AM EDT [facility] Bilirubin, Direct <0.2 0.0 - 0.3 mg/dL 03/02/2024 11:14 AM EDT [facility] Protein, Total 7.5 6.1 - 8.0 g/dL 03/02/2024 11:14 AM EDT [facility] Blood VENOUS BLOOD SPECIMEN / Unknown Venipuncture / Unknown 03/02/2024 9:06 AM EDT 03/02/2024 9:06 AM EDT Malvin Russo WEB GRAPHIC DESIGNER CHEMISTRY ORDERABLE S [facility] [place] [address] * (ABNORMAL) Basic Metabolic Panel Non-fasting (03/02/2024 9:06 AM ED) Glucose 207(H) 65 - 199 mg/dL 03/02/2024 11:34 AM [facility] Comment:Glucose Concentratio n >=200 mg/dL plus symptoms is consistent with Diabetes Mellitus. Blood Urea Nitrogen 19(H) 8 - 18 mg/dL 03/02/2024 11:34 AM [facility] Creatinine 0.64(L) 0.70 - 1.20 mg/dL 03/02/2024 11:34 AM [facility] Sodium 138 135 - 145 mMol/L 03/02/2024 11:34 AM [facility] Potassium 4.4 3.5 - 5.0 mMol/L 03/02/2024 11:34 AM [facility] Chloride 100 98 - 107 mMol/L 03/02/2024 11:34 AM [facility] Carbon Dioxide 25 22 - 31 mMol/L 03/02/2024 11:34 AM [facility] Anion Gap 13 5 - 15 mMol/L 03/02/2024 11:34 AM [facility] Calcium 9.5 8.5 - 10.5 mg/dL 03/02/2024 11:34 AM [facility] Est Glomerular Filtration Rate - Female 103 mL/min/1. 73 m?? 03/02/2024 11:34 AM [facility] Comment: This patient's estimated GFR [...] Fasting Status No 03/02/2024 11:34 AM EDT [facility] Blood VENOUS BLOOD SPECIMEN / Unknown Venipuncture / Unknown 03/02/2024 9:06 AM EDT 03/02/2024 9:06 AM EDT Malvin Russo WEB GRAPHIC DESIGNER CHEMISTRY ORDERABLE S Performing Organization Address City/State/[facility] Co de Phone Number [facility] [place] [address] documented in this encounter Visit Diagnoses Diagnosis HFrEF (heart failure with reduced ejection fraction) documented in this encounter Care Teams Baggage Clerk Relationship Specialty Start Date End Date Twan Pruitt PA Brennan [facility] [place] [address] PCP - General Internal Medicine 02/16/24 documented as of this encounter
--- OUTSIDE RECORDS SUMMARY | 2024-06-23 16:23 | XMS_ITS | Encounter Summary ---
Author Organization [facility] Address [address] [place] [address] Care Team Providers Care Safety Security Officer Name Role Phone Unavailable Primary Care Provider Unavailabl e Encounter Details Date Type Department Care Team (Late st Contact Info) Description 05/08/2006 Before PRISM Converted Visit (Maple) [facility] - Maple conversion [address] [place] [address] Irina Jones PA-C [address] [place], [place] [id number] Social History Tobacco Use Types Packs/Day Years Used Date Smoking Tobacco: Never Assessed Comments Unknown Sex and Gender Information Value Date Recorded Sex Assigned at Not on file Legal Sex Female 18:35 EST Gender Identity Not on file Sexual Orientation Not on file documented as of this encounter Consult Notes * Neel, Conv Sewer Inspector - 05/25/2009 1506 EST DIVISION OF RHEUMATOLOGY [...] anterior chest wall. She was followed at [facility] for 5 years. Her symptoms subsided [...] OTILIA Landrum A - O1 Job ID: [id number] Document ID: [id number] cc: Daniel Gutierrez MD documented in this encounter Plan of Treatment Not on file documented as of this encounter Visit Diagnoses Not on filedocumented in this encounter
--- OUTSIDE RECORDS SUMMARY | 2024-06-23 16:23 | XMS_ITS | Clinical Summary ---
Author Organization [facility] Address [facility] [place] [address] Care Team Providers Care Tube Balancer Name Role Phone Twan Pruitt Primary Care [...] cigarettes 07/11/2017 07/11/2017 Abnormal uterine bleeding 07/11/2017 Social History Tobacco Use Types Packs/Day Years [...] year) with FIT yearly 1966 Sigmoidoscopy 1966 Pneumoccocal Vaccine: 50+ (1 of 2 - PCV) 1985 Tetanus/Diphtheria/Pertussis [...] Procedure Name Priority Date/Time Associated Diagnosis Comments BASIC METABOLIC PANEL Routine 03/02/2024 9:06 AM EDT HFrEF (heart failure with reduced ejection fraction) HIV SCREEN, 4TH GENERATION ([facility]/CGP/APD/NLH)PE RFORMABLE Routine 04/08/2023 10:57 AM EST Elevated liver enzymes HEPATITIS C ANTIBODY Routine 04/08/2023 10:57 AM EST Elevated liver enzymes from Last 3 Months or Most Recently Relevant to Health Maintenance Results * (ABNORMAL) Basic Metabolic Panel Non-fasting (03/02/2024 9:06 AM EDT) Glucose 207(H) 65 - 199 mg/dL 03/02/2024 11:34 AM EDT [facility] Comment:Glucose Concentratio n >=200 mg/dL plus symptoms is consistent with Diabetes Mellitus. Blood Urea Nitrogen 19(H) 8 - 18 mg/dL 03/02/2024 11:34 AM [facility] Creatinine 0.64(L) 0.70 - 1.20 mg/dL 03/02/2024 11:34 AM [facility] Sodium 138 135 - 145 mMol/L 03/02/2024 11:34 AM [facility] Potassium 4.4 3.5 - 5.0 mMol/L 03/02/2024 11:34 AM [facility] Chloride 100 98 - 107 mMol/L 03/02/2024 11:34 AM [facility] Carbon Dioxide 25 22 - 31 mMol/L 03/02/2024 11:34 AM [facility] Anion Gap 13 5 - 15 mMol/L 03/02/2024 11:34 AM [facility] Calcium 9.5 8.5 - 10.5 mg/dL 03/02/2024 11:34 AM [facility] Est Glomerular Filtration Rate - Female 103 mL/min/1. 73 m?? 03/02/2024 11:34 AM [facility] Comment: This patient's estimated GFR [...] Foundation Fasting Status No 03/02/2024 11:34 AM [facility] Blood VENOUS BLOOD SPECIMEN / Unknown Venipuncture / Unknown 03/02/2024 9:06 AM EDT 03/02/2024 9:06 AM EDT Malvin Russo BLANCA CHEMISTRY ORDERABLE S [facility] [place] [address] * Hepatitis C Antibody (04/08/2023 10:57 AM EST) Hepatitis C Antibody Negative Negative [facility] Blood 04/08/2023 10:5 7 AM EST 04/08/2023 11:02 AM EST Narrative Resulting Agency Comment Spec In Lab Ana Maria Zacarias MD CHEMISTRY ORDERABLES Performing Organization Address City/[facility]/ZIP Co de Phone Number [facility] [place] [address] * HIV Screen, 4th Generation ([facility]/CGP/APD/NLH) (04/08/2023 10:57 AM EST) HIV Ab/Ag Screen Negative Negative [facility] Comment: This 4th Generation HIV test [...] HIV Comment Low Risk of HIV Infection [facility] Blood 04/08/2023 10:5 7 AM EST 04/08/2023 11:02 AM EST Narrative Resulting Agency Comment Spec In Lab Ana Maria Zacarias MD CHEMISTRY ORDERABLES [facility] [place] [address] from Last 3 Months or Most Recently [...] capacity to make decision: Yes Care Teams Tube Balancer Relationship Specialty Start Date End Date Twan Pruitt [place] [facility] [place] [address] PCP - General Internal Medicine 02/16/24
--- OUTSIDE RECORDS SUMMARY | 2024-06-23 16:23 | XMS_ITS | Encounter Summary ---
Author Organization [facility] Address [address] [place] [address] Care Team Providers Care Fence Repairman Name Role Phone Unknown, Provider Primary Care Provider Moise Poole MD Primary Care Provider [phone] Encounter Details Date Type Department Care Team (Late st Contact Info) Description 10/18/2020 Lab Requisition [facility] Pathology & Laboratory Medicine - [facility] [address] [place] [address] Outr Resulting Lab, Provider Social History Tobacco [...] MICROBIOLOGY - GENER AL ORDERABLES Final Result [facility] [address] [place] [address] * COVID-19 TESTING (10/18/2020 11:30 EDT) COVID-19 rt-PCR Result Negative Negative 10/19/2020 13:32 EDT [facility] Comment: This test has [...] developed and its performance characteristics determined by [facility]. It has not been cleared or approved [...] testing. This test is based on the [facility] COVID-19 Emergency Use Authorization (EUA) assay, with minor modification as defined by the FDA Performed on the BiBCOMo 7 Pro RT-PCR System. Performing Lab [facility] Lab 10/19/2020 13:32 EDT [facility] Swab 10/18/2020 11:3 0 EDT 10/18/2020 20:38 EDT us Provider Outr Resulting Lab MICROBIOLOGY - GENER AL ORDERABLES Final Result [facility] [address] [place] [address] documented in this encounter Visit Diagnoses Not on filedocumented in this encounter Additional Health Concerns Infection Onset Date Last Indicated Resolved Time COVID-19 05/28/2021 05/28/2021 06/17/2021 22:1 5 EST documented as of this encounter Care Teams Fence Repairman Relationship Specialty Start Date End Date Unknown, Provider, PCP - General 04/03/20 07/16/21 Moise Lala MD [facility] [place] [address] PCP - General 07/17/21 documented as of this encounter
--- OUTSIDE RECORDS SUMMARY | 2024-06-23 16:23 | XMS_ITS | Encounter Summary ---
Author Organization [facility] Address [address] [place] [address] Care Team Providers Care Hatchery Manager Name Role Phone Unavailable Primary Care Provider Unavailabl e Encounter Details Date Type Department Care Team (Late st Contact Info) Description 05/08/2006 8:03 EST Hospital Encounter [facility] [address] [place] [address] Irina Jones PA-C [address] [place], [place] [address] Social History Tobacco Use Types Packs/Day Years [...] PANEL (CMP) Routine 05/08/2006 10:53 EST HIPS PDERO W/AP PEL 2+ VIEWS 05/08/2006 10:22 EST documented in this encounter Results * UA REFLEX (05/08/2006 10:54 EST) UA Billing Microscopic not indicated. [facility] 05/08/2006 10:5 4 EST 05/08/2006 10:55 EST Irina BINGHAM-C URINALYSIS ORDERABLES Final Resu lt Performing Organization Address City/[facility] Co de Phone Number [facility] [address] [place] [address] * (ABNORMAL) URINALYSIS (05/08/2006 10:54 EST) Color, UA Yellow [facility] Clarity, UA Hazy [facility] Glucose, UA Norm NORM [facility] Bilirubin, UA Neg NEG [facility] Ketones, UA Neg NEG [facility] Specific [place], Urine >1.030(H) 1.005 - 1.02 [facility] [...] ORDERABLES Final Resu lt Performing Organization Address City/State/[facility] Co de Phone Number [facility] [address] [place] [address] * TSH (05/08/2006 10:53 EST) Pathologist [facility] TSH 1.66 0.35 - 5.00 uIU/mL [facility] 05/08/2006 10:5 3 EST 05/08/2006 10:54 EST Irina Jones PA-C CHEMISTRY & BLOOD GAS ORDERABLES Final Result Performing Organization Address [facility] de Phone Number [facility] [address] [place] [address] * SS-B/LA ANTIBODY, IGG, SERUM (05/08/2006 10:53 EST) [facility] Autoantibodies to SS B/La 2.1Unit: U(Note) -- EXPECTED VALUES -- ? (Ref Range) <25.0 ? Test Performed by: ? [facility] Dpt of Lab Med and Pathology ? [address] , [place] [address] ? Director [facility]: He Kyle III, M.D. ? [facility] 05/08/2006 10:5 3 EST 05/08/2006 10:54 EST us Irina Jones PA-C IMMUNOLOGY AND SEROLOGY ORDERABL ES Final Result [facility] [address] [place] [address] * SS-A/RO ANTIBODY, IGG, SERUM (05/08/2006 10:53 EST) Autoantibodies to SS A/Ro 1.5Unit: U(Note) -- EXPECTED VALUES -- ? (Ref Range) <25.0 ? Test Performed by: ? [facility] Dpt of Lab Med and Pathology ? [address] [place] [address] ? Director [facility]: He Kyle III, M.D. ? [facility] 05/08/2006 10:5 3 EST 05/08/2006 10:54 EST us Irina Jones PA-C IMMUNOLOGY AND SEROLOGY ORDERABL ES Final Result [facility] [address] [place] [address] * (ABNORMAL) COMPREHENSIVE METABOLIC PANEL (05/08/2006 10:53 [...] LAB ALT 48 9 - 52 U/L [facility] Albumin 4.2 3.4 - 4.9 g/dl [facility] Total Protein 7.3 6.5 - 8.3 g/dl [facility] Creatinine 0.79 0.7 - 1.5 mg/dl [facility] GFR, Calculated >60 ml/min/1.7 3m2 [facility] BUN 16 10 - 26 mg/dl [facility] Calcium 9.6 8.5 - 10.5 mg/dl [facility] Calculated Calcium 9.8 8.5 - 10.5 mg/dl [facility] Glucose, Serum 91 70 - 100 mg/dl [facility] Fasting? No [facility] Albumin/Globulin Ratio 1.4 [facility] 05/08/2006 10:5 3 EST 05/08/2006 10:54 EST Irina Jones PA-C CHEMISTRY & BLOOD GAS ORDERABLES Final Result Performing Organization Address [facility] de Phone Number [facility] [address] [place] [address] * CK (05/08/2006 10:53 EST) CK 68 30 - 135 U/L [facility] 05/08/2006 10:5 3 EST 05/08/2006 10:54 EST Irina BINGHAM-C CHEMISTRY & BLOOD GAS ORDERABLES Final Result Performing Organization Address City/[facility]/ZIP Co de Phone Number [facility] [address] [place] [address] * (ABNORMAL) HEMAGRAM AND DIFFERENTIAL (05/08/2006 10:53 EST) Pathologist [facility] WBC 10.17 4.0 - 12.4 K/cmm [facility] [...] ORDERABLES Final Result [facility] [address] [place] [address] * HLA B27 (05/08/2006 10:53 EST) Pathologist [facility] HLA B27 HLA B27 not identified [facility] 05/08/2006 10:5 3 EST 05/08/2006 10:54 EST Irina Jones PA-C TISSUE TYPING ORDERABLES Final R esult [facility] [address] [place] [address] * HIPS PEDRO W/AP PEL 2+ VIEWS (05/08/2006 10:22 EST) Anatomical Region Laterality Modality Other 05/08/2006 10:2 2 EST Narrative 11/26/2008 2:34 EDT HIP PAIN PROBLEM STATEMENT: ??Hip pain. EXAMINATION: ??BILATERAL HIPS WITH AP PELVIS, FIVE VIEWS: 05/08/2006 IMPRESSION: ??Negative. DESCRIPTION: ??An AP view of the pelvis and AP and frog-leg lateral views of each hip. ??Normal. [id number] D: ??05/09/2006 15:17 T: ??05/13/2006 07:41 Procedure Note Yosvany Trevino MD - 11/26/2008 HIP PAIN PROBLEM STATEMENT: Hip pain. EXAMINATION: BILATERAL HIPS WITH AP PELVIS, FIVE VIEWS: 05/08/2006 IMPRESSION: Negative. DESCRIPTION: An AP view of the pelvis and AP and frog-leg lateral views of each hip. Normal. [id number] [id number] Irina Jones PA-C IMG DIAGNOSTIC IMAGING ORDERABLE S Final Result documented in this encounter Visit Diagnoses Not on filedocumented in this encounter Additional Health Concerns Infection Onset Date Last Indicated Resolved Time COVID-19 05/28/2021 05/28/2021 06/17/2021 22:1 5 EST documented as of this encounter
--- OUTSIDE RECORDS SUMMARY | 2024-06-23 16:23 | XMS_ITS | Encounter Summary ---
Author Organization [facility] Address [address] [place] [address] Care Team Providers Care Ergonomist Name Role Phone Unavailable Primary Care Provider Unavailabl e Encounter Details Date Type Department Care Team (Late st Contact Info) Description 05/08/2006 Before PRISM Converted Visit (Maple) [facility] - Maple conversion [address] [place], [place] [address] Mayela Khoury MD [address] [facility] [address] [place] [address] Social History Tobacco Use Types Packs/Day Years Used Date Smoking Tobacco: Never Assessed Comments Unknown Sex and Gender Information Value Date Recorded Sex Assigned at Not on file Legal Sex Female 18:35 EST Gender Identity Not on file Sexual Orientation Not on file documented as of this encounter Progress Notes * Mayela Khoury MD - 05/22/2009 5861 EST DIVISION OF RHEUMATOLOGY - 05/08/2006 Daniel Gutierrez MD [address] Gutierrez: I had the great pleasure of seeing Ms. Nikia Steele in consultation for you today. I saw her with my physicians patent legal assistant, Irina Jones, and I confirmed the [...] Khoury MD P - mr Job ID: [id number] Document ID: [id number] cc: MD Irina Fernandez PA documented in this encounter Plan of Treatment Not on file documented as of this encounter Visit Diagnoses Not on filedocumented in this encounter
--- OUTSIDE RECORDS SUMMARY | 2024-06-23 16:23 | XMS_ITS | Encounter Summary ---
Author Organization [facility] Address [address] [place] [address] Care Team Providers Care Radio Tester Name Role Phone Moise Lala MD Primary Care Provider [phone] Encounter Details Date Type Department Care Team (Late st Contact Info) Description 09/19/2022 Lab Requisition [facility] Pathology & Laboratory Medicine - [facility] [address] [place], [place] [id number] Outr Resulting Lab, Provider Social History Tobacco [...] IGA <1.2 <4.0 U/mL 09/23/2022 13:[address] [facility] Comment: A negative result may be due to IgA deficiency and does not rule out celiac disease. ? Negative: ??<4.0 U/mL ? Weak Positive: ??4.0 - 10.0 U/mL ? Positive: ??>10.0 U/mL Results were obtained with the cWyze QUANTA Lite R h-tTG IgA JAME assay on the Neuravi DSX. IgA 233 85 - 499 mg/dL 09/23/2022 13:[address] [facility] Celiac Disease Interpretation Negative Serology. Celiac disease unlikely. Approximately 10% of patients with celiac disease are seronegative. Patients who are already adhering to a gluten-free diet may also be seronegative. If celiac disease is highly clinically suspected, referral to gastroenterology for additional evaluation is recommended. 09/23/2022 13:[address] [facility] Blood VENOUS BLOOD / Unknown 09/18/2022 9:45 EDT 09/19/2022 17:24 EDT us Provider Outr Resulting Lab IMMUNOLOGY AND SEROL OGY ORDERABLES Final Result Performing Organization Address City/State/[facility] Co de Phone Number [facility] [address] [place] [address] documented in this encounter Visit Diagnoses Not on filedocumented in this encounter Care Teams Radio Tester Relationship Specialty Start Date End Date Moise Lala MD [facility] [place] [address] PCP - General 07/17/21 documented as of this encounter
--- OUTSIDE RECORDS SUMMARY | 2024-06-23 16:23 | XMS_ITS | Encounter Summary ---
Author Organization [facility] Address [address] [place] [address] Care Team Providers Care Graduating Machine Operator Name Role Phone Unknown, Provider Primary Care Provider Unava ilable Encounter Details Date Type Department Care Team (Late st Contact Info) Description 03/11/2012 Results Only [facility] [phone] Buster Eduardo, [employer] [address] [place] [address] Social History Tobacco Use Types [...] ? POLY DENTON ? Accession #: ? [id number] : ? 1965 (Age: 46) ??F ?Collect Date: ? 03/11/2012 Location: ? [facility] ? Receive Date: ? 03/13/2012 Provider: ?BUSTER EDUARDO INVOICE MACHINE OPERATOR Copy to: ? Specimen/Source: ?Pap Test, Cervix/Endocervix, [...] [facility] 03/11/2012 03/13/2012 us Buster Eduardo [employer] MERCH[employer] PATHOLOGY ORDERABLES Final Re sult [facility] [address] [place] [address] documented in this encounter Visit Diagnoses Not on filedocumented in this encounter Care Teams Graduating Machine Operator Relationship Specialty Start Date End Date Unknown, Provider, PCP - General 03/13/12 05/05/13 documented as of this encounter
--- OUTSIDE RECORDS SUMMARY | 2024-06-23 16:23 | XMS_ITS | Encounter Summary ---
[place] [address] Care Team Providers Care Pharmacy Aide Name Role Phone Moise Lala MD Primary [...] on filedocumented in this encounter Care Teams Pharmacy Aide Relationship Specialty Start Date End Date Moise Lala MD PCP - General Family Medicine 06/26/17 02/15/24 documented as of this encounter
--- OUTSIDE RECORDS SUMMARY | 2024-06-23 16:23 | XMS_ITS | Encounter Summary ---
Author Organization [facility] [place] [address] Care Team Providers Care Auto Salvage Worker Name Role Phone Twan Pruitt Primary Care Provider + Reason for Referral * Diagnostic Test (Routine) - Closed Specialty Diagnoses / Procedures Referred By Contac t Referred To Contact Radiology Diagnoses HFrEF (heart failure with reduced ejection fraction) Family history of premature CAD Procedures MRI Cardiac Morphology Function and Stress wwo Contrast Shane Romano MD [facility] [place] [address] [place] [address] Referral ID Status Reason Start Date Expiration Date V isits Requested Visits Authorized [id number] Closed Specialty Service Requested 04/16/2023 10/14/2024 1 1 Reason for Visit * Diagnostic Test (Routine) - Closed Specialty Diagnoses / Procedures Referred By Contac t Referred To Contact Radiology Diagnoses HFrEF (heart failure with reduced ejection fraction) Family history of premature CAD Procedures MRI Cardiac Morphology Function and Stress wwo Contrast Shane Romano MD [facility] [place] [address] [place] [address] Referral ID Status Reason Start Date Expiration Date V isits Requested Visits Authorized [id number] Closed Specialty Service Requested 04/16/2023 10/14/2024 1 1 Encounter Details Date Type Department Care Team (Late st Contact Info) Description 02/16/2024 8:41 AM EDT - 02/16/2024 11:59 PM EDT Hospital Encounter MRI [facility] [place] [address] Giselle Nelson MD LBBB (left bundle branch [...] Stress wwo Contrast (02/16/2024 11:32 AM EDT) [employer] WORKSTATION ID [id number] DH RAD Anatomical Region Laterality Modality Chest, [...] who have questions please contact the health health care manager that requested your imaging first. ? Electronically signed by: Jp Schofield MD, [facility] ([phone]), at 02/16/2024 11:59 AM Narrative 02/16/2024 11:59 [...] previous infarct or resting myocardial ischemia. TI Manager Of Construction: TI Manager Of Construction demonstrates normal nulling patterns. Delayed enhancement: Delayed [...] suggest previous infarct or resting myocardialischemia. TI Manager Of Construction: TI Manager Of Construction demonstrates normal nulling patterns. Delayed enhancement: Delayed [...] patients who have questions please contactthe health health care manager that requested your imaging first. Giselle Nelson MD IMG MRI ORDERABLE S * EKG 12 Lead (02/16/2024 9:58 AM EDT) Ventricular rate 77 BPM MUSE SYSTEM Atrial Rate 77 BPM MUSE SYSTEM P-R Interval 174 ms MUSE SYSTEM QRS Duration 158 ms MUSE SYSTEM Q-T Interval 432 ms MUSE SYSTEM QTC Calculated (Bezet) 488 ms MUSE SYSTEM Calculated P [place] 55 degrees MUSE SYSTEM Calculated R [place] 16 degrees MUSE SYSTEM Calculated T [place] 141 degrees MUSE SYSTEM INTERPRETATION Normal sinus rhythm Left bundle branch block Abnormal ECG When compared with ECG of 08-AUG-2017 17:38, No significant change was found Confirmed by MD Cohen Jose ([id number]) on 02/17/2024 5:58:06 AM MUSE SYSTEM 02/16/2024 9:58 AM EDT 02/17/2024 5:58 AM EDT Jp Schofield MD ECG ORDERABLES MUSE SYSTEM documented [...] mLs documented in this encounter Care Teams Auto Salvage Worker Relationship Specialty Start Date End Date Twan Pruitt PA [facility] [place] [address] [address] PCP - General Internal Medicine 02/16/24 documented as of this encounter
--- OUTSIDE RECORDS SUMMARY | 2024-06-23 16:23 | XMS_ITS | Encounter Summary ---
Author Organization [facility] Address [address] [place] [address] Care Team Providers Care Commercial Instructor Supervisor Name Role Phone Moise Lala MD Primary Care Provider Encounter Details Date Type Department Care Team (Late st Contact Info) Description 07/11/2022 Lab Requisition [facility] Pathology & Laboratory Medicine - [facility] [address] [place] [address] Moise Lala MD [address] [place] [address] [place] [address] Encounter for other general examination [...] management options, if applicable. 07/15/2022 15:31 EST [facility] Final Diagnosis A. SKIN OF BUTTOCK, LEFT, EXCISION: - Follicular cyst, infundibular type. 07/15/2022 15:31 [facility] Attestation By the signature below, the attending physician certifies that they have 1) personally conducted a gross and/or microscopic examination of the described specimen(s), and/or personally interpreted the results of laboratory testing of the described specimen(s), and 2) personally rendered or confirmed the above diagnosis. 07/15/2022 15:31 [facility] at 1531 Microscopic Description There is a dermal cyst that is lined by stratified squamous epithelium that matures through a granular layer. The cyst is filled with laminated orthokeratin. 07/15/2022 15:31 [facility] Clinical History Slightly purple growing dermal nodule, no head, cyst not obviously sebaceous; punctured after removal 07/15/2022 15:31 [facility] Gross Description A. Received in [...] wall thickness less than 0.1 cm. Two senior customer service representative sections are submitted in A1. OTILIA SAUER(ASCP) 07/12/2022 8:43 07/15/2022 15:31 [facility] Performing Lab [facility] 07/15/2022 15:31 [facility] Scanned Images 07/15/2022 15:31 [facility] Tissue TISSUE SPECIMEN FROM SKIN / Unknown 07/10/2022 15:25 EST 07/11/2022 17:04 EST Moise Lala MD PATHOLOGY ORDERABLES Final Resul t [facility] [address] [place] [address] documented in this encounter Visit Diagnoses Diagnosis Encounter for other general examination documented in this encounter Care Teams Commercial Instructor Supervisor Relationship Specialty Start Date End Date Moise Lala MD [address] [place] [address] PCP - General 07/17/21 documented as of this encounter
--- OUTSIDE RECORDS SUMMARY | 2024-06-23 16:23 | XMS_ITS | Encounter Summary ---
Author Organization [facility] Address [address] [place] [address] Care Team Providers Care Shoe Caser Name Role Phone Buster Campos APRN Primary Care Provider [phone] Encounter Details Date Type Department Care Team (Late st Contact Info) Description 06/11/2017 Results Only [facility] [phone] Eamon Lala MD [address] [place] [id number] Social History Tobacco Use Types Packs/Day Years [...] ? POLY DENTON ? Accession #: ? [id number] ? : ? 1965 (Age: 51) ??F [...] (ASCP) 06/12/2017 4:50 PM End of Report [facility] 06/11/2017 16:2 4 EST 06/12/2017 16:24 EST us Eamon Lala MD PATHOLOGY ORDERABLES Final Resul t [facility] [address] [place] [address] documented in this encounter Visit Diagnoses Not on filedocumented in this encounter Care Teams Shoe Caser Relationship Specialty Start Date End Date Buster Campos APRN [address] [place] [phone] PCP - General 05/06/13 07/25/19 documented as of this encounter
--- OUTSIDE RECORDS SUMMARY | 2024-06-23 16:23 | XMS_ITS | Encounter Summary ---
Author Organization [facility] Address [address] [place] [address] Care Team Providers Care Batting Machine Operator Insulation Name Role Phone Moise Lala MD Primary Care Provider [phone] Encounter Details Date Type Department Care Team (Late st Contact Info) Description 08/30/2021 Lab Requisition [facility] Pathology & Laboratory Medicine - [facility] [address] [place] [address] Jen Duran MD [address] [place] [address] [place] [address] Encounter for other general examination Social [...] management options, if applicable. 09/03/2021 18:08 EDT [facility] Final Diagnosis A. GALLBLADDER, CHOLECYSTECTOMY: - Chronic cholecystitis. - Cholelithiasis. 09/03/2021 18:08 EDT [facility] Attestation There was significant resident/fellow involvement in the diagnostic evaluation of this case. By the signature below, the attending physician certifies that they have personally conducted a gross and/or microscopic examination of the described specimens and rendered or confirmed the above diagnosis. 09/03/2021 18:08 T [facility] at 1808 Clinical History Cholecystitis 09/03/2021 18:08 EDT [facility] Gross Description A. Received [...] 3.1 x 1.0 cm in aggregate). Two financial representative sections and the en face cystic duct margin are submitted in A1. OTILIA HILL([facility]) 08/30/2021 10:35 09/03/2021 18:08 T [facility] Resident/Kee w: Gely Mcleod MD PhD 09/03/2021 18:08 T [facility] Performing Lab [facility] 09/03/2021 18:08 T [facility] Scanned Images 09/03/2021 18:08 T [facility] Tissue ENTIRE GALLBLADDER / Unknown 08/29/2021 14:29 EDT 08/30/2021 8:50 EDT us Jen Duran MD PATHOLOGY ORDERABLES Fin al Result [facility] [address] [place] [address] documented in this encounter Visit Diagnoses Diagnosis Encounter for other general examination documented in this encounter Care Teams Batting Machine Operator Insulation Relationship Specialty Start Date End Date Moise Lala MD [address] [place] [address] PCP - General 07/17/21 documented as of this encounter
--- OUTSIDE RECORDS SUMMARY | 2024-06-23 16:23 | XMS_ITS | Encounter Summary ---
Author Organization [facility] Address [address] [place] [address] Care Team Providers Care Internal Combustion Engine Assembler Name Role Phone Moise Lala MD Primary Care Provider [phone] Encounter Details Date Type Department Care Team (Late st Contact Info) Description 03/28/[address] [facility] Lab - Main [address] [address] Twan Orellana MD [address] [place] [phone] Noninfective gastroenteritis and colitis, unspecified; Lower [...] explore management options, if applicable. 03/29/2022 9:49 [facility] Final Diagnosis A. COLON, RANDOM BIOPSIES: - Colonic mucosa with no diagnostic abnormality. B. RECTUM, BIOPSY: - Hyperplastic polyp. 03/29/2022 9:49 [facility] Attestation By the signature below, the attending physician certifies that they have 1) personally conducted a gross and/or microscopic examination of the described specimen(s), and/or personally interpreted the results of laboratory testing of the described specimen(s), and 2) personally rendered or confirmed the above diagnosis. 03/29/2022 9:49 [facility] at 0949 Clinical History h/o chronic diarrhea, diverticulosis 03/29/2022 9:49 [facility] Gross Description A. Received in [...] B1. MARKEL MORGAN 03/28/2022 8:58 03/29/2022 9:49 [facility] Performing Lab [facility] 03/2022 9:49 [facility] Scanned Images 03/29/2022 9:49 [facility] Tissue ENTIRE RECTUM / Unknown 03/27/2022 7:37 EST 03/28/2022 7:35 EST Tissue specimen (specimen) ENTIRE RECTUM / Unknown 03/27/2022 7:37 EST 03/28/2022 7:36 EST us Twan Orellana MD PATHOLOGY ORDERABLES Final Result [facility] [address] [place] [address] documented in this encounter Visit Diagnoses Diagnosis Noninfective gastroenteritis and colitis, unspecified Lower abdominal pain, unspecified documented in this encounter Care Teams Internal Combustion Engine Assembler Relationship Specialty Start Date End Date Moise Lala MD [address] [place] [address] PCP - General 07/17/21 documented as of this encounter
--- OUTSIDE RECORDS SUMMARY | 2024-06-23 16:23 | XMS_ITS | Encounter Summary ---
Author Organization [facility] Address [address] [place] [address] Care Team Providers Care Stonemason Apprentice Name Role Phone Unknown, Provider MD Primary Care Provider Unava ilable Encounter Details Date Type Department Care Team (Late st Contact Info) Description 04/03/2020 Results Only [facility] Lab - Main [address] [id number] Unknown, Provider, Social History Tobacco Use Types [...] (04/03/2020) 04/03/2020 04/04/2020 13: 42 EST Narrative [facility] - 04/05/2020 13:55 EST ----- ------- Name: POLY DENTON ? : [birth year] ?Age/Sex: 54/F ?Unit#: [id number] ? Loc: LAB.POP ? Status: REG REF ?? Reg Date: 04/03/20 ? Pt.Phone Number: ? ----- ------- Specimen: [id number] ? STATUS: SOUT ?Spec Date:04/03/20 ? Physician Copies: ?NONE,NONE ? Tissues: A ?? Endoscopy specimen (RECTAL POLYP) ?ELMA TIRADO ? B ?? Endoscopy specimen (CECUM POLYP X 2) ? EAMON COLON ? C ?? Endoscopy specimen (SIGMOID POLYP X 3) ? CPT: 86401 ?? Units: ??3 ?FINAL DIAGNOSIS ? A. RECTUM, POLYP, BIOPSY: ? - Hyperplastic polyp. ? B. COLON, CECUM, POLYPS X2, BIOPSY: ? - Tubular adenomas. ? C. COLON, SIGMOID, POLYPS X3, BIOPSY; ? - Hyperplastic polyps. ----- ------- ?COMMENT ? [id number] ? GROSS DESCRIPTION ? Received in formalin [...] confirmed the above diagnosis. Test Performed by [facility], [address] [place] [address] Sql Server Architect: Ginger Pierre MD PHD ----- ------- us Provider Unknown PATHOLOGY ORDERABLES Final R esult [facility] [address] [place] [address] documented in this encounter Visit Diagnoses Not on filedocumented in this encounter Care Teams Stonemason Apprentice Relationship Specialty Start Date End Date Unknown, Provider, PCP - General 04/03/20 07/16/21 documented as of this encounter
--- OUTSIDE RECORDS SUMMARY | 2024-06-23 16:23 | XMS_ITS | Encounter Summary ---
Author Organization [facility] Address [address] [place] [address] Care Team Providers Care Inpatient Services Director Name Role Phone Unavailable Primary Care Provider Unavailabl e Encounter Details Date Type Department Care Team (Late st Contact Info) Description 01/17/2005 Results Only [facility] conversion [address] [place] [address] Laly Ramirez PA-C [address] [place] [address] [place] [address] Social History Tobacco Use Types Packs/Day [...] when reading/interpreti ng unformatted reports. Name: ? YESSENIA POLY ? Accession #: ? [id number] ? : ? 1965 (Age: 39) ??F ? Collect Date: ? 01/17/2005 ? Location: ? [facility] ? Receive Date: ? 01/18/2005 ? Provider: [...] a variable amount of melanin pigment. ??(Dr. Bacon)/[facility] Document reviewed and electronically signed by: LUKE [...] Gross Description: ? Received in formalin labelled [place] and lesion/pubis is a 1.5 x 0.8 [...] Fin al Result [facility] [address] [place] [address] documented in this encounter Visit Diagnoses Not on filedocumented in this encounter
--- OUTSIDE RECORDS SUMMARY | 2024-06-23 16:23 | XMS_ITS | Encounter Summary ---
Author Organization [facility] Address [address] [place] [address] Care Team Providers Care Installer Apprentice Name Role Phone Unavailable Primary Care Provider Unavailabl e Encounter Details Date Type Department Care Team (Late st Contact Info) Description 09/24/2004 Results Only [facility] conversion [address] [place] [address] Eamon Fernandez, DMD [address] [place] [address] Social History Tobacco Use Types Packs/Day Years [...] Name: ? IVETTEPOLY ? Accession #: ? [id number] ? : ? 1965 (Age: 38) ??F [...] ? Received in formalin labelled [place] and right lower lip/vestibule is an unoriented [...] ORDERABLES Final Resu lt [facility] [address] [place] [address] documented in this encounter Visit Diagnoses Not on filedocumented in this encounter
--- OUTSIDE RECORDS SUMMARY | 2024-06-23 16:23 | XMS_ITS | Encounter Summary ---
Author Organization [facility] Address [address] [place] [address] Care Team Providers Care Marine Pipefitter Helper Name Role Phone Unknown, Provider Primary Care Provider Moise Poole MD Primary Care Provider [phone] Encounter Details Date Type Department Care Team (Late st Contact Info) Description 05/28/2021 Lab Requisition [facility] Pathology & Laboratory Medicine - [address] [address] Outr Resulting Lab, Provider Social History Tobacco [...] MICROBIOLOGY - GENER AL ORDERABLES Final Result [facility] [address] [place] [address] * (ABNORMAL) COVID-19 TESTING (05/28/2021 13:40 EST) COVID-19 rt-PCR Result Positive(AA ) Negative 05/29/2021 13:23 EST [facility] Comment: This test has not [...] terminated or revoked sooner. Performed on the Charity Engineher Fusion instrument Performing Lab [facility] 05/29/2021 13:23 EST [facility] Swab 05/28/2021 13:4 0 EST 05/28/2021 21:47 EST us Provider Outr Resulting Lab MICROBIOLOGY - GENER AL ORDERABLES Final Result [facility] [address] [place] [address] documented in this encounter Visit Diagnoses Not on filedocumented in this encounter Additional Health Concerns Infection Onset Date Last Indicated Resolved Time COVID-19 05/28/2021 05/28/2021 06/17/2021 22:1 5 EST documented as of this encounter Care Teams Marine Pipefitter Helper Relationship Specialty Start Date End Date Unknown, Provider, PCP - General 04/03/20 07/16/21 [place] [address] PCP - General 07/17/21 documented as of this encounter
--- OUTSIDE RECORDS SUMMARY | 2024-06-23 16:23 | XMS_ITS | Encounter Summary ---
Author Organization [facility] Address [address] [place] [address] Care Team Providers Care Vocational Coordinator Name Role Phone Buster Campos APRN Primary Care Provider [phone] Encounter Details Date Type Department Care Team (Late st Contact Info) Description 07/23/2016 Results Only [facility] - [address] [address] Alec Mera FNP [address] [place], [place] [id number] Social History Tobacco Use Types Packs/Day Years [...] ? POLY DENTON ? Accession #: ? [id number] ? : ? 1965 (Age: 50) ??F ?Collect Date: ? 07/23/2016 ? Location: ? [facility] ? Receive Date: ? 07/24/2016 ? Provider: ALEC MERA ROUNDING AND BACKING MACHINE OPERATOR Copy to: ? Final Report SPECIMEN ADEQUACY [...] types 16,18,31,33,35, 39,45,51,52,56,58, 59,66, and 68 by instructional leader mediated amplification. Comments Document reviewed and electronically signed by: ? System Interface ? Report date: 07/29/2016 By the signature above, the attending physician certifies that he/she has personally conducted a gross and/or microscopic examination of the described specimens and rendered or confirmed the above diagnosis. End of Report [facility] 07/23/2016 07/24/2016 us Alec Ede ROUNDING AND BACKING MACHINE OPERATOR PATHOLOGY ORDERABLES Final Res ult [facility] [address] [place] [address] documented in this encounter Visit Diagnoses Not on filedocumented in this encounter Care Teams Vocational Coordinator Relationship Specialty Start Date End Date Buster Campos APRN [address] [place] [address] PCP - General 05/06/13 07/25/19 documented as of this encounter
--- OUTSIDE RECORDS SUMMARY | 2024-06-23 16:24 | XMS_ITS | Encounter Summary ---
Author Organization [facility] Address [facility] [address] Care Team Providers Care Bolt Machine Operator Name Role Phone Moise Lala MD Primary Care Provider [phone] Reason for Referral * Consultation (Routine) - [...] next step. Ana Maria Hendricks MD [address] [place] [address] Giselle Nelson MD [facility] [place] [address] Referral ID Status Reason Start Date Expiration Date V isits Requested Visits Authorized [id number] Closed Consult, Test & Treat PCP Updated and/or Approved 03/13/2023 03/12/2024 6 6 Encounter Details Date Type Department Care Team (Latest Contact Info) Description 03/13/2023 Transcribe Orders eDH Incoming Referrals [phone] Ana Maria Hendricks MD Cardiomyopathy, unspecified type; [...] block documented in this encounter Care Teams Bolt Machine Operator Relationship Specialty Start Date End Date Moise Lala MD PCP - General Family Medicine 06/26/17 02/15/24 documented as of this encounter
--- OUTSIDE RECORDS SUMMARY | 2024-06-23 16:24 | XMS_ITS | Encounter Summary ---
[place] [address] Care Team Providers Care Vp Respiratory Name Role Phone Moise Lala MD Primary [...] on filedocumented in this encounter Care Teams Vp Respiratory Relationship Specialty Start Date End Date Moise Lala MD PCP - General Family Medicine 06/26/17 02/15/24 documented as of this encounter
--- OUTSIDE RECORDS SUMMARY | 2024-06-23 16:24 | XMS_ITS | Encounter Summary ---
[place] [address] Care Team Providers Care Art Framing Manager Name Role Phone Moise Lala MD Primary Care Provider [phone] Encounter Details Date Type Department Care Team (Latest Contact Info) Description 04/08/2023 11:40 AM EST Laboratory Appointment Lab [address]L [place] [address] Diarrhea, unspecified type; Elevated liver [...] liver enzymes HIV SCREEN, 4TH GENERATION ([facility] [place]/CGP/APD/NLH)PERF ORMABLE Routine 04/08/2023 10:57 AM EST Elevated liver [...] 10:57 AM EST) Neutrophil % 58.6 % [facility] Neutrophil Absolute 4.01 1.70 - 6.10 x10(3)/[facility] LAB[facility]ATORY Lymph % 30.8 % [facility] Lymphocytes Abs 2.1 0.9 - 3.2 x10(3)/[facility] LABORATORY Monocyte % 7.4 % [facility] Monocyte Abs 0.5 0.3 - 0.9 x10(3)/[facility] LABORATORY Eos % 2.0 % [facility] Eosinophils Abs 0.1 0.0 - 0.4 x10(3)/[facility] LABORATORY Basophil % 0.9 % [facility] Baso Absolute 0.1 0.0 - 0.1 x10(3)/[facility] LABORATORY Immature Gran % 0.30 % [facility] Comment: Immature granulocytes(IG's)percentage and absolute count will include metamyelocytes, myelocytes, and promyelocytes. Blood smears from CBCs yielding IG's will be scanned manually for concordance. If this scan disagrees with the automated IG or if promyelocytes are noted, a manual differential will be performed. Immature Gran Absolute 0.02 0.00 - 0.04 x10(3)/[facility] LABORATORY Blood 04/08/2023 10:5 7 AM EST 04/08/2023 11:02 AM EST Narrative Resulting Agency Comment Spec In Lab Ana Maria Zacarias MD HEMATOLOGY ORDERABLE S Performing Organization Address City/State/[facility] Co de Phone Number [facility] [place] [address] * (ABNORMAL) Hemogram (04/08/2023 10:57 AM EST) White Blood Cell 6.8 4.0 - 9.5 x10(3)/mc L [facility] Red Blood Cell 4.66 4.00 - 5.21 x10(6)/mc L [facility] Hemoglobin 12.8 11.7 - 15.5 g/dL [facility] Hematocrit 39.1 35.7 - 45.8 % [facility] Mean Cell Volume 83.9 82.6 - 94.4 fL [facility] Mean Cell Hemoglobin 27.5 27.1 - 32.0 pg [facility] Mean Cell Hemoglobin Concentration 32.7 31.7 - 35.0 g/dL [facility] Platelet 243 145 - 357 x10(3)/mc L [facility] RDW Standard Deviation 46.7(H) 37.0 - 46.0 fL [facility] RDW coefficient of variation 15.3(H) 11.5 - 14.1 % [facility] Mean Platelet Volume 10.0 7.6 - 12.9 fL [facility] NRBC% auto 0.0 % [facility] NRBC Absolute 0.000 0.000 - 0.000 x10(3)/mc L [facility] Blood 04/08/2023 10:5 7 AM EST 04/08/2023 11:02 AM EST Narrative Resulting Agency Comment Spec In Lab Ana Maria Zacarias MD HEMATOLOGY ORDERABLE S [facility] [address] [place] [address] * (ABNORMAL) Comprehensive metabolic panel (non-fasting) (04/08/2023 10:57 AM EST) Glucose 126 65 - 199 mg/dL [facility] Comment:Diabetes: >=200 mg/d L plus symptoms Blood Urea Nitrogen 17 8 - 18 mg/dL [facility] Creatinine 0.68(L) 0.70 - 1.20 mg/dL [facility] Sodium 138 135 - 145 mmol/L [facility] Potassium 3.8 3.5 - 5.0 mmol/L [facility] Comment: Please note: ??Patients with WBC >100,000 may have falsely elevated Potassium levels. ??For accurate Potassium quantification in these patients send serum separator tube (gold top) for subsequent determinations. ??Contact the Clinical Chemistry Laboratory if there are any questions. Chloride 103 98 - 107 mmol/L [facility] Carbon Dioxide 23 22 - 31 mmol/L [facility] Anion Gap 12 5 - 15 mmol/L [facility] Calcium 9.0 8.5 - 10.5 mg/dL [facility] Protein, Total 6.8 6.1 - 8.0 g/dL [facility] Albumin 4.1 3.2 - 5.2 g/dL [facility] Aspartate Aminotransferase 20 0 - 30 unit/L [facility] Alanine Aminotransferase 24 0 - 30 unit/L [facility] Alkaline Phosphatase 137(H) 35 - 105 unit/L [facility] Bilirubin, Total 0.2 0.2 - 1.3 mg/dL [facility] Est Glomerular Filtration Rate 102 >=60 mL/min/1. 73 m?? [facility] Comment: This patient's estimated GFR was [...] Zacarias MD CHEMISTRY ORDERABLES Performing Organization Address [facility] Co de Phone Number [facility] [place] [address] * Prothrombin Time (04/08/2023 10:57 AM EST) Prothrombin Time 11.0 9.4 - 12.5 sec [facility] International Normalization Ratio 1.0 [facility] Comment: An INR <2.0 indicates adequate [...] MD HEMATOLOGY ORDERABLE S Performing Organization Address City/[facility]/ZIP Co de Phone Number [facility] [place] [address] * Hepatitis A Antibody, Total (04/08/2023 10:57 AM EST) Hepatitis A ANTIBODY, TOTAL Negative Negative [facility] Blood 04/08/2023 10:5 7 AM EST 04/08/2023 11:02 AM EST Narrative Resulting Agency Comment Spec In Lab Ana Maria Zacarias MD CHEMISTRY ORDERABLES Performing Organization Address City/[facility] Co de Phone Number [facility] [place] [address] * Hepatitis B Surface Antibody (04/08/2023 10:57 AM EST) Hepatitis B Surface Antibody, Quantitative 43.0 IU/L [facility] Comment: HepB Surface Ab Quant: Unvaccinated: < 8.5 IU/L Vaccinated: >= 11.5 IU/L Hepatitis B Surface Antibody Positive [facility] Comment: Patient is considered to be immune to HBV infection. Expected Results: Vaccinated: Positive Unvaccinated: Negative Blood 04/08/2023 10:5 7 AM EST 04/08/2023 11:02 AM EST Narrative Resulting Agency Comment Spec In Lab Ana Maria Zacarias MD CHEMISTRY ORDERABLES Performing Organization Address City/[facility] Co de Phone Number [facility] [place] [address] * Hepatitis B Surface Antigen (04/08/2023 10:57 AM EST) Hepatitis B Surface Antigen Negative Negative [facility] Blood 04/08/2023 10:5 7 AM EST 04/08/2023 11:02 AM EST Narrative Resulting Agency Comment Spec In Lab Ana Maria Zacarias MD CHEMISTRY ORDERABLES Performing Organization Address [facility] Co de Phone Number [facility] [place] [address] * Hepatitis B Core Antibody, Total (04/08/2023 10:57 AM EST) Hepatitis B Core Antibody Negative Negative [facility] Blood 04/08/2023 10:5 7 AM EST 04/08/2023 11:02 AM EST Narrative Resulting Agency Comment Spec In Lab Ana Maria Zacarias MD CHEMISTRY ORDERABLES Performing Organization Address City/[facility] Co de Phone Number [facility] [place] [address] * Hepatitis C Antibody (04/08/2023 10:57 AM EST) Hepatitis C Antibody Negative Negative [facility] Blood 04/08/2023 10:5 7 AM EST 04/08/2023 11:02 AM EST Narrative Resulting Agency Comment Spec In Lab Ana Maria Zacarias MD CHEMISTRY ORDERABLES Performing Organization Address City/[facility]/ZIP Co de Phone Number [facility] [place] [address] * HIV Screen, 4th Generation ([facility] [place]CGP/APD/NLH) (04/08/2023 10:57 AM EST) Pathologist [facility] HIV Ab/Ag Screen Negative Negative [facility] Comment: This 4th Generation HIV test [...] HIV Comment Low Risk of HIV Infection [facility] Blood 04/08/2023 10:5 7 AM EST 04/08/2023 11:02 AM EST Narrative Resulting Agency Comment Spec In Lab Ana Maria Zacarias MD CHEMISTRY ORDERABLES Performing Organization Address City/[facility] Co de Phone Number [facility] [place] [address] * (ABNORMAL) Chromogranin A (04/08/2023 10:57 AM EST) Pathologist [facility] Chromogranin A (SEPTEMBER) 575(H) <93 ng/mL [facility] Comment: Impaired renal or hepatic function or treatment with proton pump inhibitors may result in artifactual elevations of Chromogranin A. ADDITIONAL INFORMATION This test was developed and its performance characteristics determined by [facility] in a manner consistent with CLIA [...] a homogeneous time-resolved immunofluorescent assay manufactured by [employer] and performed on the [employer] Kryptor Compact Plus. Values obtained with different assay methods or kits may be different and cannot be used interchangeably. Test results cannot be interpreted as absolute evidence for the presence or absence of malignant disease. Test Performed by: [facility] [place] [address] Bottle Washer: Alexis Potter M.D. Ph.D.; CLIA# [id number] Blood 04/08/2023 10:5 7 AM EST 04/08/2023 1:21 PM EST Narrative Resulting Agency Comment Spec In Lab Ana Maria Zacarias MD LAB SEND OUT ORDERAB LES Performing Organization Address [facility] de Phone Number [facility] [place] [address] * (ABNORMAL) Gastrin (04/08/2023 10:57 AM EST) Gastrin (SEPTEMBER) 215(H) pg/mL [facility] Comment: REFERENCE VALUE <100 Reference ranges valid for >= 8 hour fast. Test Performed by: [facility] [employer] - [address] [address] Bottle Washer: Alexis Potter M.D. Ph.D.; CLIA# [id number] Blood 04/08/2023 10:5 7 AM EST 04/08/2023 1:21 PM EST Narrative Resulting Agency Comment Spec In Lab Ana Maria Zacarias MD LAB SEND OUT ORDERAB LES Performing Organization Address [facility] Co de Phone Number [facility] [place] [address] * TSH (04/08/2023 10:57 AM EST) Thyroid Stimulating Hormone 1.49 0.27 - 4.20 mcIU/mL [facility] Comment: Reference Interval (mcIU/mL): Females: ??First Trimester: 0.23-3.88 ??Second Trimester: 0.22-3.90 ??Third Trimester: 0.44-4.66 Blood 04/08/2023 10:5 7 AM EST 04/08/2023 11:02 AM EST Narrative Resulting Agency Comment Spec In Lab Ana Maria Zacarias MD CHEMISTRY ORDERABLES Performing Organization Address [facility] Co de Phone Number [facility] [place] [address] documented in this encounter Visit Diagnoses Diagnosis Diarrhea, unspecified type Elevated liver enzymes Nonspecific elevation of levels of transaminase or lactic acid dehydrogenase (LDH) documented in this encounter Care Teams Art Framing Manager Relationship Specialty Start Date End Date Moise Lala MD PCP - General Family Medicine 06/26/17 02/15/24 documented as of this encounter
--- OUTSIDE RECORDS SUMMARY | 2024-06-23 16:24 | XMS_ITS | Encounter Summary ---
[place] [address] Care Team Providers Care Medical Affairs Director Name Role Phone Moise Lala MD Primary Care Provider [phone] Reason for Referral * Diagnostic Test (Routine) - Closed Specialty Diagnoses / Procedures Referred By Contac t Referred To Contact Radiology Diagnoses Diarrhea, unspecified type Elevated gastrin level Procedures NM PET CT Neuroendocrine (DETECTNET) Ana Maria Zacarias MD [facility] [place] [address] [place] [address] Referral ID Status Reason Start Date Expiration Date V isits Requested Visits Authorized [id number] Closed Specialty Service Requested 04/11/2023 10/09/2024 1 1 Reason for Visit * Diagnostic Test (Routine) - Closed Specialty Diagnoses / Procedures Referred By Contac t Referred To Contact Radiology Diagnoses Diarrhea, unspecified type Elevated gastrin level Procedures NM PET CT Neuroendocrine (DETECTNET) Ana Maria Zacarias MD [facility] [place] [address] [place] [address] Referral ID Status Reason Start Date Expiration Date V isits Requested Visits Authorized [id number] Closed Specialty Service Requested 04/11/2023 10/09/2024 1 1 Encounter Details Date Type Department Care Team (Latest Contact Info) Description 05/09/2023 11:24 AM EST Hospital Encounter [place] [address] Ana Maria Zacarias MD [facility] [place] [address] Diarrhea, unspecified type; Elevated gastrin level Discharge [...] who have questions please contact the health career services officer that requested your imaging first. ? Narrative [...] patients who have questions please contactthe health career services officer that requested your imaging first. Ana Maria Zacarias MD IMG PET ORDERABLES documented in this encounter Visit Diagnoses Diagnosis Diarrhea, unspecified type Elevated gastrin level Abnormality of secretion of gastrin documented in this encounter Care Teams Medical Affairs Director Relationship Specialty Start Date End Date Moise Lala MD PCP - General Family Medicine 06/26/17 02/15/24 documented as of this encounter
--- OUTSIDE RECORDS SUMMARY | 2024-06-23 16:24 | XMS_ITS | Encounter Summary ---
[place] [address] Care Team Providers Care Cow Buyer Name Role Phone Moise Lala MD Primary Care Provider [phone] Encounter Details Date Type Department Care Team (Late st Contact Info) Description 06/18/2023 [place] [phone] Kami Senior Social History Tobacco Use Types [...] - 06/18/2023 11:31 AM EST Nikia Denton [id number] Diagnosis/Indication: elevated gastrin, net spot with diffuse [...] procedure? No You must have a responsible alliance party who will drive you to your procedure, stay on campus for the entire duration of your procedure, and drive you home from your procedure. Who will likely be your rear load truck driver for the procedure? *Please Verify the height [...] on filedocumented in this encounter Care Teams Cow Buyer Relationship Specialty Start Date End Date Moise Lala MD PCP - General Family Medicine 06/26/17 02/15/24 documented as of this encounter
--- OUTSIDE RECORDS SUMMARY | 2024-06-23 16:24 | XMS_ITS | Encounter Summary ---
[place] [address] Care Team Providers Care Truck Railroad And Bus Motor Mechanic Name Role Phone Moise Lala MD Primary Care Provider [phone] Encounter Details Date Type Department Care Team (Late st Contact Info) Description 10/24/2021 Telephone [place] [phone] Marya Tatum Social History Tobacco Use Types [...] - 10/24/2021 4:15 PM EDT Nikia Denton [id number] Diagnosis/Indication: EUS and possible ERCP (pending EUS [...] to patient: You must have a responsible green party who will drive you to your [...] on filedocumented in this encounter Care Teams Truck Railroad And Bus Motor Mechanic Relationship Specialty Start Date End Date Moise Lala MD PCP - General Family Medicine 06/26/17 02/15/24 documented as of this encounter
--- OUTSIDE RECORDS SUMMARY | 2024-06-23 16:24 | XMS_ITS | Encounter Summary ---
[place] [address] Care Team Providers Care Social Insurance Analyst Name Role Phone Moise Lala MD Primary Care Provider [phone] Reason for Referral * Consultation (Routine) - Closed Specialty Diagnoses / Procedures Referred By Contac t Referred To Contact Gastroenterology Diagnoses Enlarged liver Fatty liver RUQ pain Diarrhea, unspecified type fatty liver/ ruq pain/diarrhea Yasmeen Lala APRN [address] [place] [address] [facility] [address] [place] [id number] Referral ID Status Reason Start Date Expiration Date V isits Requested Visits Authorized [id number] Closed Consult, Test & Treat PCP Updated and/or Approved 01/15/2023 01/15/2024 12 12 Encounter Details Date Type Department Care Team (Latest Contact Info) Description 01/15/2023 Transcribe Orders eDH Incoming Referrals [phone] Yasmeen Lala APRN [address] [place] [address] Enlarged liver; Fatty liver; RUQ [...] type documented in this encounter Care Teams Social Insurance Analyst Relationship Specialty Start Date End Date Moise Lala MD PCP - General Family Medicine 06/26/17 02/15/24 documented as of this encounter
--- OUTSIDE RECORDS SUMMARY | 2024-06-23 16:24 | XMS_ITS | Encounter Summary ---
Author Organization [facility] [place] [address] Care Team Providers Care Accounts Executive Name Role Phone Moise Lala MD Primary Care Provider [phone] Reason for Visit * Auth/Cert (Routine) Specialty [...] 2.09) Thomas Hawthorne MD [address] [place] [address] [facility] Referral ID Status Reason Start Date Expiration Date Visits Re quested Visits Authorized [id number] 1 1 Encounter Details Date Type Department Care Team (Late st Contact Info) Description 06/23/2023 9:30 AM EST - 06/23/2023 10:00 AM EST Surgery [place] [address] Thomas Hawthorne MD [address] [place] [address] EGD WITH BIOPSY (WRVU 2.39) [...] the day after the procedure, use an tvii-fxm-hcxdksx spray to numb your throat. Sucking on [...] occurs, please contact your Doctor. Please call [phone] before 8pm Mon-Fri with problems, questions or concerns. If you call after 8pm or on weekends, call the Hospital at [phone] and ask to speak to the System Support Specialist poured concrete wall technician and the sheet metal operator will contact that person for you. When should you call for help? Call [phone] anytime you think you may need emergency [...] any problems. Where can you learn more? [facility] View your After Visit Summary and more online at [email or web address] If you would like to provide feedback about your hospital experience, please call the Office of Patient and Family Relations at . If you have received this After Visit Summary in error, please immediately return it in person to the department, or notify the [facility] Privacy Office by calling toll free at between the hours of 8AM and 5PM to arrange for our retrieval of the documents at no cost to you. Content Version: 12.2 ?? 4727-2030 [email or web address]. Care instructions adapted under license by [facility]. If you have questions about a medical condition or this instruction, always ask your healthcare professional. [email or web address] disclaims any warranty or liability for your [...] 9:57 AM EST Upper Gi Endoscopy, Biopsy ([id number]) 06/23/2023 9:40 AM EST Elevated gastrin level UPPER GI ENDOSCOPY Routine 06/23/2023 9: 21 AM EST POCT GLUCOSE Routine 06/23/2023 8:57 AM EST documented in this encounter Results * Surgical Pathology Report (06/23/2023 9:57 AM EST) Final Diagnosis [id number] ? Location: ; 07; A The signing [...] Verified: ??07/01/2023 9:20 ?? Pathologist Performed at: ??-[facility] Dept. of Pathology, [place] [address] Landscape Crew Member: Maxine Willis MD, FCAP, ??CLIA Certificate: [id number] ADDITIONAL STUDIES Immunohistochemistry Studies: Formalin-fixed, paraffin-embedded tissue [...] labeled E1. ??ajw 07/01/2023 9:20 AM EST [facility] GI Biopsy 06/23/2023 9:57 AM EST 06/23/2023 9:57 AM EST GI Biopsy 06/23/2023 9:57 AM EST 06/23/2023 9:57 AM EST GI Biopsy 06/23/2023 9:57 AM EST 06/23/2023 9:57 AM EST GI Biopsy 06/23/2023 9:57 AM EST 06/23/2023 9:57 AM EST GI Biopsy 06/23/2023 9:57 AM EST 06/23/2023 9:57 AM EST Thomas Hawthorne MD PATHOLOGY/CYTOLOGY ORDERABLES [facility] [place] [address] [facility] [place] [address] * Specimen to Pathology (06/23/2023 9:57 AM EST) AP Specimen 06/23/2023 9:57 AM EST 06/23/2023 9:57 AM EST Narrative [facility] - 06/23/2023 9:57 AM EST Specimen requisition ordered. ??Separate Pathology report to follow Thomas Hawthorne MD PATHOLOGY/CYTOLOGY ORDERABLES Performing Organization Address City/[facility] [place] [place] [address] * Specimen to Pathology (06/23/2023 9:57 AM EST) AP Specimen 06/23/2023 9:57 AM EST 06/23/2023 9:57 AM EST Narrative [facility] - 06/23/2023 9:57 AM EST Specimen requisition ordered. ??Separate Pathology report to follow Thomas Hawthorne MD PATHOLOGY/CYTOLOGY ORDERABLES Performing Organization Address [facility] [place] [place] [address] * Specimen to Pathology (06/23/2023 9:57 AM EST) AP Specimen 06/23/2023 9:57 AM EST 06/23/2023 9:57 AM EST Narrative [facility] - 06/23/2023 9:57 AM EST Specimen requisition ordered. ??Separate Pathology report to follow Thomas Hawthorne MD PATHOLOGY/CYTOLOGY ORDERABLES Performing Organization Address [facility] [place] [place] [address] * Specimen to Pathology (06/23/2023 9:57 AM EST) AP Specimen 06/23/2023 9:57 AM EST 06/23/2023 9:57 AM EST Narrative [facility] - 06/23/2023 9:57 AM EST Specimen requisition ordered. ??Separate Pathology report to follow Thomas Hawthorne MD PATHOLOGY/CYTOLOGY ORDERABLES Performing Organization Address City/[facility] Co de Phone Number [facility] [place] [address] * Specimen to Pathology (06/23/2023 9:57 AM EST) AP Specimen 06/23/2023 9:57 AM EST 06/23/2023 9:57 AM EST Narrative [facility] - 06/23/2023 9:57 AM EST Specimen requisition ordered. ??Separate Pathology report to follow Thomas Hawthorne MD PATHOLOGY/CYTOLOGY ORDERABLES Performing Organization Address City/State/[facility] Co de Phone Number [facility] [place] [address] * UPPER GI ENDOSCOPY (06/23/2023 9:21 AM EST) UPPER GI ENDOSCOPY [facility] Endoscopy Procedure Date: 06/23/2023 9:21 AM ? Patient Name: Nikia Denton ? N: [id number] ? Date of : 1965 ? Age: 57 ? Order #: [id number] ? Instrument Name: [id number] ? Procedure: ? Upper GI endoscopy Indications: ? Chronic diarrhea, elevated ? gastrin/chromogranin levels, ? diffuse gastric uptake on NetSpot Providers: ? Thomas Hawthorne, Alcon Rodriguez, ? RN, Janelle Brewer, Cdl Company Driver Referring MD: ?Ana Maria Mcgarry Medicines: ? [...] the ? physician, the nurse, the ? wool merchant and the gear technician. The ? procedure was verified in [...] care under ? the supervision of a VP CUSTOMER DEVELOPMENT was ? determined to be medically ? [...] Glucose, POC 116 65 - 199 mg/dL [facility] Comment: Supplemental ranges: <140 mg/dL before meals <180 mg/dL all other times of the day Blood 06/23/2023 8:57 AM EST 06/23/2023 8:57 AM EST Thomas Hawthorne MD POINT OF CARE TEST ORDERABLES Performing Organization Address City/[facility]/ZIP Co de Phone Number [facility] [place] [address] documented in this encounter Visit Diagnoses Diagnosis [...] CRNA) documented in this encounter Care Teams Accounts Executive Relationship Specialty Start Date End Date Moise Lala MD PCP - General Family Medicine 06/26/17 02/15/24 documented as of this encounter
--- OUTSIDE RECORDS SUMMARY | 2024-06-23 16:24 | XMS_ITS | Encounter Summary ---
Author Organization [facility] [place] [address] Care Team Providers Care Big Data Software Engineer Name Role Phone Moise Lala MD Primary Care Provider [phone] Reason for Visit * Auth/Cert Specialty Diagnoses [...] EUS- ENDOSCOPIC ULTRASOUND ERCP Guillermo Omer MD [facility] [place] [address] [facility] Referral ID Status Reason Start Date Expiration Date Visits Re quested Visits Authorized [id number] 1 1 Encounter Details Date Type Department Care Team (Late st Contact Info) Description 11/07/2021 8:30 AM EDT - 11/07/2021 10:00 AM EDT Surgery [place] [address] Guillermo Omer MD [facility] [place] [address] UPPER EUS- ENDOSCOPIC ULTRASOUND (WRVU [...] the day after the procedure, use an uxqs-aqx-qmihsmu spray to numb your throat. Sucking on [...] occurs, please contact your Doctor. Please call [phone] before 8pm Mon-Fri with problems, questions or concerns. If you call after 8pm or on weekends, call the Hospital at [phone] and ask to speak to the Keyliner motivational speaker and the tag machine operator will contact that person for you. When should you call for help? Call [phone] anytime you think you may need emergency [...] problems, like Where can you learn more? [facility] View your After Visit Summary and more online at [email or web address] If you would like to provide feedback about your hospital experience, please call the Office of Patient and Family Relations at . If you have received this After Visit Summary in error, please immediately return it in person to the department, or notify the [facility] Privacy Office by calling toll free at between the hours of 8AM and 5PM to arrange for our retrieval of the documents at no cost to you. Content Version: 12.2 ?? 8303-8350 [employer]. Care instructions adapted under license by [facility]. If you have questions about a medical condition or this instruction, always ask your healthcare professional. [employer] disclaims any warranty or liability for your [...] Omer MD - 11/07/2021 8:45 AM EDT [facility] Operative Note Patient Name: Nikia Denton : [id number] MR#: [id number] Case Date: 11/07/2021 Surgeon: Surgeon(s) and Role: [...] AM EDT Ercp, W/Removal Stone, Soto/Pancr Ducts ([id number]) 11/07/2021 8:27 AM EDT EUS and possible ERCP (pending EUS findings) within 2 weeks for possible retained gallstones suggested on outside MRI imaging in setting of abdo pain; post CCY. Ercp, Sphincterotomy ([id number]) 11/07/2021 8:27 AM EDT EUS and possible ERCP (pending EUS findings) within 2 weeks for possible retained gallstones suggested on outside MRI imaging in setting of abdo pain; post CCY. Endoscopic Us Exam, Esoph ([id number]) 11/07/2021 8:27 AM EDT EUS and possible [...] Omer MD IM FILM LIBRARY ORD ERABLES [place], [place] * UPPER EUS-ENDOSCOPIC ULTRASOUND (11/07/2021 8:19 AM EDT) UPPER ENDOSCOPIC ULTRASOUND [facility] Endoscopy Procedure Date: 11/07/2021 8:19 AM ? Patient Name: Nikia Denton ? Date of : 1965 ? Age: 55 ? Order #: [id number] ? Instrument Name: [id number] ? Procedure: ? Upper EUS Indications: ? [...] * ERCP (11/07/2021 8:06 AM EDT) ERCP [facility] Endoscopy Procedure Date: 11/07/2021 8:06 AM ? Patient Name: Nikia Denton ? N: [id number] ? Date of : 1965 ? Age: 55 ? Order #: [id number] ? Instrument Name: [id number] ? Procedure: ? ERCP Indications: ? Abnormal MRCP, Abnormal endoscopic ? ultrasound of the biliary system, ? Evaluation and possible treatment ? of bile duct stone(s) Providers: ? Guillermo Omer MD, Clau Hewitt. ? TREVA Livingston, Buster Pastrana MD: ?Moise Lala Medicines: ? General Anesthesia, Indomethacin ? 100 mg SC Complications: ? No immediate complications. Procedure: ? [...] procedure ? well. ? Findings: ? A beverage inspection machine tender film of the abdomen was obtained. Surgical [...] was made with a monofilament ? CleverCut wyxs-wxy-qnub sphincterotome using ERBE ? electrocautery. The sphincterotomy [...] RN) documented in this encounter Care Teams Big Data Software Engineer Relationship Specialty Start Date End Date Moise Lala MD PCP - General Family Medicine 06/26/17 02/15/24 documented as of this encounter
--- OUTSIDE RECORDS SUMMARY | 2024-06-23 16:24 | XMS_ITS | Encounter Summary ---
Author Organization [facility] [place] [address] Care Team Providers Care Women'S Ministry Director Name Role Phone Moise Lala MD Primary Care Provider [phone] Encounter Details Date Type Department Care Team (Latest Contact Info) Description 08/21/2023 3:30 PM EDT TH Visit (TeleHealth) [place] [id number] Ana Maria Zacarias MD [facility] [place] [address] Diarrhea, unspecified type; Metabolic dysfunction-associat ed steatotic [...] of Dr. Lala here for follow-up of [facility]. Detailed history: #[facility] Liver Fibrosis Score (Fib 4) was 0.84 at 08/21/2023 3:30 PM Risk of Fibrosis Low Intermediate High NAFLD Less than 1.3 1.3-2.67 Greater than 2.67 Hepatitis C Less than 1.45 1.45-3.25 Greater than 3.25 #IBS-D - HPI 04/08/2023 Diarrhea since her cholecystectomy and ERCP 2 years intermittently. She reports diarrhea occurs a few times per weeks, 5-7 BM, Trigg type 7, without blood, bright yellow. She [...] Final UPPER GI ENDOSCOPY 06/23/2023 Final Value:[facility] Endoscopy Procedure Date: 06/23/2023 9:21 AM Patient Name: Nikia Denton Date of : 1965 Age: 57 Order #: [id number] Instrument Name: [id number] Procedure: Upper GI endoscopy Indications: Chronic diarrhea, elevated gastrin/chromogranin levels, diffuse gastric uptake on NetSpot Providers: Alcon Cabral RN, Janelle Brewer, Carpenter Inspector Referring MD: Ana Maria Mcgarry Medicines: Monitored [...] procedure by the physician, the nurse, the upholsterer apprentice and the network support technician. The procedure was verified in the pre-procedure area in the endoscopy suite. - Pre-procedure physical examination revealed no contraindications to sedation. - ASA Grade Assessment: III - A patient with severe systemic disease. - After reviewing the risks and benefits, the patient was deemed in satisfactory condition to undergo the procedure. - Monitored anesthesia care under the supervision of a ULTRA SOUND TECHNICIAN was determined to be medically necessa ry [...] 9:21 AM Surgical Pathology Report 06/23/2023 Final Value:[id number] Location: 4T; EA07; A The signing pathologist [...] MD Verified: 07/01/2023 9:20 Pathologist Performed at: -[facility] Dept. [place]ology, [place] [address] Grocery Store Bagger: Maxine Willis MD, FCAP, [place] Certificate: [id number] ADDITIONAL STUDIES Immunohistochemistry Studies: Formalin-fixed, paraffin-embedded tissue [...] encounter: 30 minutes Ana Maria Zacarias MD [facility] [place] [address] documented in this encounter Plan of Treatment Not on file documented as of this encounter Visit Diagnoses Diagnosis Diarrhea, unspecified type Metabolic dysfunction-associated steatotic liver disease (MASLD) documented in this encounter Care Teams Women'S Ministry Director Relationship Specialty Start Date End Date Moise Lala MD PCP - General Family Medicine 06/26/17 02/15/24 documented as of this encounter
--- OUTSIDE RECORDS SUMMARY | 2024-06-23 16:24 | XMS_ITS | Encounter Summary ---
Author Organization [facility] [place] [address] Care Team Providers Care Warehouse Loader Name Role Phone Moise Lala MD Primary Care Provider [phone] Encounter Details Date Type Department Care Team (Late st Contact Info) Description 05/30/2023 Orders [place] [address] Ana Maria Zacarias MD [facility] [place] [address] Elevated gastrin level Social History Tobacco Use [...] gastrin documented in this encounter Care Teams Warehouse Loader Relationship Specialty Start Date End Date Moise Lala MD PCP - General Family Medicine 06/26/17 02/15/24 documented as of this encounter
--- OUTSIDE RECORDS SUMMARY | 2024-06-23 16:24 | XMS_ITS | Encounter Summary ---
Author Organization [facility] [place] [address] Care Team Providers Care X Ray Inspector Name Role Phone Moise Lala MD Primary Care Provider [phone] Reason for Visit * Auth/Cert Specialty Diagnoses [...] EUS- ENDOSCOPIC ULTRASOUND ERCP Guillermo Omer MD [facility] [place] [address] [facility] Referral ID Status Reason Start Date Expiration Date Visits Re quested Visits Authorized [id number] 1 1 Encounter Details Date Type Department Care Team (Latest Contact Info) Description 11/07/2021 7:33 AM EDT - 11/07/2021 12:08 PM EDT Hospital Encounter [place] [address] Guillermo Omer MD [facility] [place] [address] Discharge Disposition: Home Social History [...] the day after the procedure, use an caag-esy-vbsuwjb spray to numb your throat. Sucking on [...] occurs, please contact your Doctor. Please call [phone] before 8pm Mon-Fri with problems, questions or concerns. If you call after 8pm or on weekends, call the Hospital at [phone] and ask to speak to the Optical Manufacturing Technician refrigeration installer and the cap lining machine operator will contact that person for you. When should you call for help? Call [phone] anytime you think you may need emergency [...] problems, like Where can you learn more? [facility] View your After Visit Summary and more online at [email or web address] If you would like to provide feedback about your hospital experience, please call the Office of Patient and Family Relations at . If you have received this After Visit Summary in error, please immediately return it in person to the department, or notify the [facility] Privacy Office by calling toll free at between the hours of 8AM and 5PM to arrange for our retrieval of the documents at no cost to you. Content Version: 12.2 ?? 9131-5244 [employer]. Care instructions adapted under license by [facility]. If you have questions about a medical condition or this instruction, always ask your healthcare professional. [employer] disclaims any warranty or liability for your [...] Omer MD - 11/07/2021 8:45 AM EDT [facility] Operative Note Patient Name: Nikia Denton : [id number] MR#: [id number] Case Date: 11/07/2021 Surgeon: Surgeon(s) and Role: [...] AM EDT Ercp, W/Removal Stone, Soto/Pancr Ducts ([id number]) 11/07/2021 8:27 AM EDT EUS and possible ERCP (pending EUS findings) within 2 weeks for possible retained gallstones suggested on outside MRI imaging in setting of abdo pain; post CCY. Ercp, Sphincterotomy ([id number]) 11/07/2021 8:27 AM EDT EUS and possible ERCP (pending EUS findings) within 2 weeks for possible retained gallstones suggested on outside MRI imaging in setting of abdo pain; post CCY. Endoscopic Us Exam, Esoph ([id number]) 11/07/2021 8:27 AM EDT EUS and possible ERCP (pending EUS findings) within 2 weeks for possible retained gallstones suggested on outside MRI imaging in setting of abdo pain; post CCY. UPPER EUS-ENDOSCOPIC ULTRASOUND Routine 11/07/2021 8:19 AM EDT ERCP Routine 11/07/2021 8:06 AM EDT documented in this encounter Results * XR ERCP (11/07/2021 9:46 AM EDT) Narrative [facility] - 11/07/2021 9:47 AM EDT See PACS for result report. Guillermo Omer MD [facility] FILM LIBRARY ORD ERABLES [place], [place] * UPPER EUS-ENDOSCOPIC ULTRASOUND (11/07/2021 8:19 AM EDT) [facility] UPPER ENDOSCOPIC ULTRASOUND [facility] Endoscopy Procedure Date: 11/07/2021 8:19 AM ? Patient Name: Nikia Denton ? Date of : 1965 ? Age: 55 ? Order #: [id number] ? Instrument Name: [id number] ? Procedure: ? Upper EUS Indications: ? [...] * ERCP (11/07/2021 8:06 AM EDT) ERCP [facility] Endoscopy Procedure Date: 11/07/2021 8:06 AM ? Patient Name: Nikia Denton ? N: [id number] ? Date of : 1965 ? Age: 55 ? Order #: [id number] ? Instrument Name: [id number] ? Procedure: ? ERCP Indications: ? Abnormal MRCP, Abnormal endoscopic ? ultrasound of the biliary system, ? Evaluation and possible treatment ? of bile duct stone(s) Providers: ? Guillermo Omer MD, Clau Sagastume ? Yara, TREVA, Buster Pastrana MD: ?Moise Lala Medicines: ? General Anesthesia, Indomethacin ? 100 mg MT Complications: ? No immediate complications. Procedure: ? [...] procedure ? well. ? Findings: ? A vegetable tier film of the abdomen was obtained. Surgical [...] was made with a monofilament ? CleverCut nwst-thv-cgmj sphincterotome using ERBE ? electrocautery. The sphincterotomy [...] RN) documented in this encounter Care Teams X Ray Inspector Relationship Specialty Start Date End Date Moise Lala MD PCP - General Family Medicine 06/26/17 02/15/24 documented as of this encounter
--- OUTSIDE RECORDS SUMMARY | 2024-06-23 16:24 | XMS_ITS | Encounter Summary ---
[place] [address] Care Team Providers Care Nursing Project Coordinator Name Role Phone Moise Lala MD Primary Care Provider [phone] Encounter Details Date Type Department Care Team (Late st Contact Info) Description 06/09/2023 Telephone [place] [phone] Shantell Franco Social History Tobacco Use Types [...] - 06/09/2023 12:25 PM EST Nikia Denton [id number] Diagnosis/Indication: elevated gastrin, net spot with diffuse [...] relation to your upcoming scheduled procedure? Yes [facility] Cardiology for Cardiomyopathy, LBBB; IB sent to Cardiology for Cardiac Clearance; SEE EMBEDDED LINUX DEVELOPER NOTE IN ORDER FOR DH CARDIAC CLEARANCE You must have a responsible libertarian who will drive you to your procedure, stay on campus for the entire duration of your procedure, and drive you home from your procedure. Who will likely be your escort car driver for the procedure? Please Verify the [...] on filedocumented in this encounter Care Teams Nursing Project Coordinator Relationship Specialty Start Date End Date Moise Lala MD PCP - General Family Medicine 06/26/17 02/15/24 documented as of this encounter
--- OUTSIDE RECORDS SUMMARY | 2024-06-23 16:24 | XMS_ITS | Encounter Summary ---
Author Organization [facility] [place] [address] Care Team Providers Care Central Station Operator Name Role Phone Moise Lala MD Primary Care Provider [phone] Encounter Details Date Type Department Care Team (Late st Contact Info) Description 07/25/2023 Episode Changes [place] [address] Stan Hassan MD [facility] [place] [address] Social History Tobacco Use Types Packs/Day Years [...] on filedocumented in this encounter Care Teams Central Station Operator Relationship Specialty Start Date End Date Moise Lala MD PCP - General Family Medicine 06/26/17 02/15/24 documented as of this encounter
--- OUTSIDE RECORDS SUMMARY | 2024-06-23 16:24 | XMS_ITS | Encounter Summary ---
[place] [address] Care Team Providers Care Audit Specialist Name Role Phone Moise Lala MD Primary Care Provider [phone] Encounter Details Date Type Department Care Team [...] on filedocumented in this encounter Care Teams Audit Specialist Relationship Specialty Start Date End Date Moise Lala MD PCP - General Family Medicine 06/26/17 02/15/24 documented as of this encounter
--- OUTSIDE RECORDS SUMMARY | 2024-06-23 16:24 | XMS_ITS | Encounter Summary ---
[place] [address] Care Team Providers Care Desktop Support Manager Name Role Phone Moise Lala MD Primary Care Provider [phone] Encounter Details Date Type Department Care Team (Late st Contact Info) Description 11/12/2021 Telephone [place] [address] Thomas Hawthorne MD [facility] DR GASTROENTEROLOGY [place] [address] Social History Tobacco Use Types Packs/Day Years [...] not included. DIVISION OF GASTROENTEROLOGY & HEPATOLOGY [facility] CALL Name: Nikia Denton Date: 11/12/2021 Time: 2:46 PM Referring Location: [facility] Referring Provider: OTILIA Montemayor calls re: Ms. [...] on filedocumented in this encounter Care Teams Desktop Support Manager Relationship Specialty Start Date End Date Moise Lala MD PCP - General Family Medicine 06/26/17 02/15/24 documented as of this encounter
--- OUTSIDE RECORDS SUMMARY | 2024-06-23 16:24 | XMS_ITS | Encounter Summary ---
[place] [address] Care Team Providers Care Booker Name Role Phone Moise Lala MD Primary Care Provider [phone] Encounter Details Date Type Department Care Team (Latest Contact Info) Description 04/16/2023 9:20 AM EST Laboratory Appointment Lab [address] [place] [address] HFrEF (heart failure with reduced [...] reduced ejection fraction) HC DNA AB DS (CHITINA) Routine 04/16/2023 9:19 AM EST HFrEF (heart [...] Protein, Urine 14(H) 0 - 12 mg/dL [facility] U Albumin 38 % total [facility] Globulin, Urine 62 % total [facility] M1 Band, Urine None Detected [facility] UPEP Comments See Note [facility] Comment: There is no evidence of clonal free light chains in this patient's urine sample. Urine 04/16/2023 9:30 AM EST 04/16/2023 9:39 AM EST Narrative Resulting Agency Comment Spec In Lab Giselle Nelson MD URINE ORDERABLES [facility] [place] [address] * (ABNORMAL) Comprehensive metabolic panel (non-fasting) (04/16/2023 9:19 AM EST) Glucose 148 65 - 199 mg/dL [facility] Comment:Diabetes: >=200 mg/d L plus symptoms Blood Urea Nitrogen 16 8 - 18 mg/dL [facility] Creatinine 0.67(L) 0.70 - 1.20 mg/dL [facility] Sodium 139 135 - 145 mmol/L [facility] Potassium 4.0 3.5 - 5.0 mmol/L [facility] Comment: Please note: ??Patients with WBC >100,000 may have falsely elevated Potassium levels. ??For accurate Potassium quantification in these patients send serum separator tube (gold top) for subsequent determinations. ??Contact the Clinical Chemistry Laboratory if there are any questions. Chloride 101 98 - 107 mmol/L [facility] Carbon Dioxide 23 22 - 31 mmol/L [facility] Anion Gap 15 5 - 15 mmol/L [facility] Calcium 9.4 8.5 - 10.5 mg/dL [facility] Protein, Total 7.0 6.1 - 8.0 g/dL [facility] Albumin 4.4 3.2 - 5.2 g/dL [facility] Aspartate Aminotransferase 19 0 - 30 unit/L [facility] Alanine Aminotransferase 27 0 - 30 unit/L [facility] Alkaline Phosphatase 152(H) 35 - 105 unit/L [facility] Bilirubin, Total 0.3 0.2 - 1.3 mg/dL [facility] Est Glomerular Filtration Rate 103 >=60 mL/min/1. 73 m?? [facility] Comment: This patient's estimated GFR [...] MD CHEMISTRY ORDERAB LES Performing Organization Address City/[facility] Co de Phone Number [facility] [place] [address] * pro-Brain Natriuretic Peptide (04/16/2023 9:19 AM EST) NT-proBNP 58 <=124 pg/mL [facility] Blood 04/16/2023 9:19 AM EST 04/16/2023 9:29 AM EST Narrative Resulting Agency Comment Spec In Lab Giselle Nelson MD CHEMISTRY ORDERAB LES Performing Organization Address [facility] Co de Phone Number [facility] [place] [address] * Lipid Panel (Reflex Direct LDL) (04/16/2023 9:19 AM EST) Cholesterol, Total 180 mg/dL [facility] Comment: Lower Risk: <200 mg/dL Average Risk: 200-239 mg/dL Higher Risk: >kn=012 mg/dL Triglyceride 165 mg/dL [facility] Comment: Average Risk/Lower Risk: <150 mg/dL Borderline High Risk: 150-199 mg/dL High Risk: 200-499 mg/dL Very High Risk: >fs=714 mg/dL HDL Cholesterol 50 mg/dL [facility] Comment: Males: ?? Higher Risk: <40 mg/dL Females: ?? Higher Risk: <50 mg/dL LDL Cholesterol 97 mg/dL [facility] Comment: Lowest Risk: <100 mg/dL Lower Risk: 100-129 mg/dL Borderline High Risk: 130-159 mg/dL High Risk: 160-189 mg/dL Very High Risk: >tg=359 mg/dL Cholesterol/HDL Ratio 3.6 ratio [facility] Lipid Interpretation See Note [facility] Comment: Lipid management should be guided by a patient? s ASCVD risk, goals and preferences. ACC/AHA Guidelines recommend high intensity statin if clinical ASCVD or LDL greater than or equal to 190 mg/dL. http://MomentFeed.com/NNY-EXZ-Vndjtfgft Adults aged 40-75 with LDL 70-189 mg/dL should have their 10 year ASCVD risk estimated with the ACC/AHA ASCVD risk assembler trim http://tools.acc.org/BDGKE-Jaae-Vxynonpep/ Statin should be discussed if risk greater [...] MD CHEMISTRY ORDERAB LES Performing Organization Address City/State/[facility] Co de Phone Number [facility] [place] [address] * (ABNORMAL) Hemoglobin A1c (04/16/2023 9:19 AM EST) Hemoglobin A1c 7.7(H) 4.3 - 5.6 % [facility] Comment: Reference Range: 4.3 - 5.6% [...] Mellitus, Diabetes Care 2013; 36: Suppl. 1, F15-07 Estimated Average Glucose 173 mg/dL [facility] Comment: Note: The eAG calculation has not been proven valid for women, individuals below 18 years old or above 70 years old, or individuals with hemoglobinopathies. Estimated average glucose (eAG) is calculated from the equation described in: [employer] LEWIS, Tish J, Waqas R, et al. ??Translating the A1C assay into estimated average glucose values. ??Diabetes Care 2008:31(8):2266-0255. Additional resources are available on the ADA website (diabetes.org). Blood 04/16/2023 9:19 AM EST 04/16/2023 9:29 AM EST Narrative Resulting Agency Comment Spec In Lab Giselle Nelson MD CHEMISTRY ORDERAB LES Performing Organization Address City/[facility] Co de Phone Number [facility] [place] [address] * (ABNORMAL) Iron and TIBC (04/16/2023 9:19 AM EST) Iron 53 30 - 150 mcg/dL [facility] TIBC 442 250 - 450 mcg/dL [facility] Iron Saturation 12(L) 20 - 50 % [facility] Blood 04/16/2023 9:19 AM EST 04/16/2023 9:29 AM EST Narrative Resulting Agency Comment Spec In Lab Giselle Nelson MD CHEMISTRY ORDERAB LES Performing Organization Address [facility] Co de Phone Number [facility] [place] [address] * (ABNORMAL) Ferritin (04/16/2023 9:19 AM EST) Ferritin 13(L) 30 - 400 ng/mL [facility] Comment: Pediatric reference ranges not verified at [facility], interpret with caution. Reference ranges for females greater than 50 years of age approach values for men, i.e., 30-400 ng/mL. Blood 04/16/2023 9:19 AM EST 04/16/2023 9:29 AM EST Narrative Resulting Agency Comment Spec In Lab Giselle Nelson MD CHEMISTRY ORDERAB LES Performing Organization Address [facility] Co de Phone Number [facility] [place] [address] * Protein Electrophoresis, serum (04/16/2023 9:19 AM EST) Total Prot Electrophoresis 6.8 6.1 - 8.0 g/dL [facility] Albumin Electrophoresis 4.02 3.20 - 5.20 g/dL [facility] Alpha 1 Globulin 0.24 0.10 - 0.30 g/dL [facility] Alpha 2 Globulin 0.88 0.40 - 0.90 g/dL [facility] Beta Globulin 0.90 0.50 - 1.00 g/dL [facility] Gamma Globulin 0.77 0.50 - 1.30 g/dL [facility] M1 Band None Detected None Detected [facility] Blood 04/16/2023 9:19 AM EST 04/16/2023 9:29 AM EST Narrative Resulting Agency Comment Spec In Lab Giselle Nelson MD CHEMISTRY ORDERAB LES Performing Organization Address City/[facility] Co de Phone Number [facility] [place] [address] * Free Light Chains, Serum (04/16/2023 9:19 AM EST) [place] Free Light Chain 2.28 0.72 - 2.75 mg/dL [facility] Lambda Free Light Chain 1.72 0.57 - 2.15 mg/dL [facility] [place]/Lambda FLC Ratio 1.3256 0.4000 - 2.5800 [facility] Blood 04/16/2023 9:19 AM EST 04/16/2023 9:29 AM EST Narrative Resulting Agency Comment Spec In Lab Giselle Nelson MD CHEMISTRY ORDERAB LES Performing Organization Address City/[facility] Co de Phone Number [facility] [place] [address] * TSH [place] (04/16/2023 9:19 AM EST) Thyroid Stimulating Hormone 1.66 0.27 - 4.20 mcIU/mL [facility] Comment: Reference Interval (mcIU/mL): Females: ??First Trimester: 0.23-3.88 ??Second Trimester: 0.22-3.90 ??Third Trimester: 0.44-4.66 Blood 04/16/2023 9:19 AM EST 04/16/2023 9:29 AM EST Narrative Resulting Agency Comment Spec In Lab Giselle Nelson MD CHEMISTRY ORDERAB LES [facility] [place] [address] * FRANCES Antibody Screen (04/16/2023 9:19 AM EST) FRANCES Ab Screen Negative Negative [facility] Comment: This antinuclear antibody (FRANCES) screen is a qualitative test performed using a fluoroenzyme immunoassay on the IPNetVoicedia 250 analyzer. This screen is designed to [...] performed by the Special Chemistry Laboratory at [facility]. This change in testing location is associated with a change is testing method and reference intervals. Please review the results of this test in association with the posted reference intervals. dsDNA Ab 1.0 <=15.0 IU/mL [facility] Comment: <10 negative 10-15 [...] performed by the Special Chemistry Laboratory at [facility]. This change in testing location is associated with a change is testing method and reference intervals. Please review the results of this test in association with the posted reference intervals. Blood 04/16/2023 9:19 AM EST 04/16/2023 10:44 AM EST Narrative Resulting Agency Comment Spec In Lab Giselle Nelson MD LAB SEND OUT ORDE RABLES Performing Organization Address City/[facility] Co de Phone Number [facility] [place] [address] * Rheumatoid factor, quant (04/16/2023 9:19 AM EST) Rheumatoid Factor <10 <=14 IU/mL [facility] Blood 04/16/2023 9:19 AM EST 04/16/2023 9:29 AM EST Narrative Resulting Agency Comment Spec In Lab Giselle Nelson MD CHEMISTRY ORDERAB LES Performing Organization Address [facility] Co de Phone Number [facility] [place] [address] documented in this encounter Visit Diagnoses Diagnosis HFrEF (heart failure with reduced ejection fraction) documented in this encounter Care Teams Booker Relationship Specialty Start Date End Date Moise Lala MD PCP - General Family Medicine 06/26/17 02/15/24 documented as of this encounter
--- OUTSIDE RECORDS SUMMARY | 2024-06-23 16:24 | XMS_ITS | Encounter Summary ---
[place] [address] Care Team Providers Care Hedis Registered Nurse Rn Name Role Phone Moise Lala MD Primary Care Provider [phone] Encounter Details Date Type Department Care Team [...] on filedocumented in this encounter Care Teams Hedis Registered Nurse Rn Relationship Specialty Start Date End Date Moise Lala MD PCP - General Family Medicine 06/26/17 02/15/24 documented as of this encounter
--- OUTSIDE RECORDS SUMMARY | 2024-06-23 16:24 | XMS_ITS | Encounter Summary ---
Author Organization [facility] [place] [address] Care Team Providers Care Cheese Blender Name Role Phone Moise Lala MD Primary Care Provider [phone] Reason for Referral * Consultation (Routine) - Denied Specialty Diagnoses / Procedures Referred By Contac t Referred To Contact Infectious Diseases Diagnoses HFrEF (heart failure with reduced ejection fraction) Family history of premature CAD Post-COVID chronic dyspnea Shane Romano MD [facility] [place] [address] [facility] [address] [place] [address] Referral ID Status Reason Start Date Expiration Date V isits Requested Visits Authorized [id number] Denied Consult, Test & Treat 04/16/2023 04/15/2024 1 0 * Diagnostic Test (Routine) - Closed Specialty Diagnoses / Procedures Referred By Gael ritter Referred To Contact Radiology Diagnoses HFrEF (heart failure with reduced ejection fraction) Family history of premature CAD Procedures MRI Cardiac Morphology Function and Stress wwo Contrast Shane Romano MD [facility] [place] [address] [facility] [place] [address] Referral ID Status Reason Start Date Expiration Date V isits Requested Visits Authorized [id number] Closed Specialty Service Requested 04/16/2023 10/14/2024 1 [...] appropriate next step. Ana Maria Hendricks MD [address] [place] [id number] Giselle Nelson MD [facility] [place] [address] Referral ID Status Reason Start Date Expiration Date V isits Requested Visits Authorized [id number] Closed Consult, Test & Treat PCP Updated and/or Approved 03/13/2023 03/12/2024 6 6 Encounter Details Date Type Department Care Team ([facility] st Contact Info) Description 04/16/2023 10:20 AM EST Office Visit Cardiology at [address] [phone] Giselle Nelson MD Post-COVID chronic [...] from the original note were not included. [facility] Section of Advanced Heart Failure Cardiology [facility] [place] [id number] OUTPATIENT VISIT DATE: 04/16/23 OUTPATIENT VISIT TYPE: [...] seen by Dr. Hendricks in 02/2023 at [facility]. She reports a history of LBBB, reportedly back [id number], when she was in [place]. She reports [...] a significant family history, including dad with [place] at age 48. She also has cousins [...] 2.23) performed by Kody Toth MD at [facility] MAIN OR PRO ENDOSCOPIC US EXAM, ESOPH N/A 11/07/2021 UPPER EUS- ENDOSCOPIC ULTRASOUND performed by Guillermo Omer MD at [facility] ENDOSCOPY PRO ERCP, SPHINCTEROTOMY N/A 11/07/2021 ERCP W/SPHINCTEROTOMY/PAPILLOTOMY performed by Guillermo Omer MD at [facility] ENDOSCOPY PRO ERCP, W/REMOVAL STONE, PEDRO/PANCR DUCTS 11/07/2021 ERCP W/REMOVAL CALCULI/DEBRIS FROM BILARY/PANCREATIC DUCT(S) performed by Guillermo Omer MD at [facility] ENDOSCOPY PRO LAPAROSCOPY W TOT HYSTERECTUTERUS <=250 GRAM W TUBE/OVARY N/A 08/19/2017 LAPAROSCOPY, TOTAL HYST, UTERUS<250GMS, REM TUBE &/OR OVARY (WRVU 15) performed by Kody Toth MD at [facility] MAIN OR FAMILY HISTORY: Does have a significant family history, including dad with [place] at age 48. 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 ? Narrative [...] previous infarct or resting myocardial ischemia. TI Die Repairer Forging: TI Die Repairer Forging demonstrates normal nulling patterns. Delayed enhancement: Delayed [...] suggest previous infarct or resting myocardialischemia. TI Die Repairer Forging: TI Die Repairer Forging demonstrates normal nulling patterns. Delayed enhancement: Delayed [...] patients who have questions please contactthe health adult care provider that requested your imaging first. Giselle Nelson MD IMG MRI ORDERABLE S * (ABNORMAL) Protein Electrophoresis, urine, random (04/16/2023 9:30 AM EST) Protein, Urine 14(H) 0 - 12 mg/dL [facility] U Albumin 38 % total [facility] Globulin, Urine 62 % total [facility] M1 Band, Urine None Detected [facility] UPEP Comments See Note [facility] Comment: There is no evidence of clonal free light chains in this patient's urine sample. Urine 04/16/2023 9:30 AM EST 04/16/2023 9:39 AM EST Narrative Resulting Agency Comment Spec In Lab Giselle Nelson MD URINE ORDERABLES [facility] [address] * Rheumatoid factor, quant (04/16/2023 9:19 AM EST) Rheumatoid Factor <10 <=14 IU/mL [facility] Blood 04/16/2023 9:19 AM EST 04/16/2023 9:29 AM EST Narrative Resulting Agency Comment Spec In Lab Giselle Nelson MD CHEMISTRY ORDERAB LES [facility] [place] [address] * FRANCES Antibody Screen (04/16/2023 9:19 AM EST) FRANCES Ab Screen Negative Negative [facility] Comment: This antinuclear antibody (FRANCES) screen is a qualitative test performed using a fluoroenzyme immunoassay on the Twicedia 250 analyzer. This screen is designed to [...] reference intervals. dsDNA Ab 1.0 <=15.0 IU/mL [facility] Comment: <10 negative [...] SEND OUT ORDE MIGUEL Performing Organization Address [facility] Co de Phone Number [facility] [address] * TSH [place] (04/16/2023 9:19 AM EST) Thyroid Stimulating Hormone 1.66 0.27 - 4.20 mcIU/mL [facility] Comment: Reference Interval (mcIU/mL): Females: ??First Trimester: 0.23-3.88 ??Second Trimester: 0.22-3.90 ??Third Trimester: 0.44-4.66 Blood 04/16/2023 9:19 AM EST 04/16/2023 9:29 AM EST Narrative Resulting Agency Comment Spec In Lab Giselle Nelson MD CHEMISTRY ORDERAB LES Performing Organization Address [facility] Co de Phone Number [facility] [address] * Free Light Chains, Serum (04/16/2023 9:19 AM EST) Pathologist [facility] [place] Free Light Chain 2.28 0.72 - 2.75 mg/dL [facility] Lambda Free Light Chain 1.72 0.57 - 2.15 mg/dL [facility] [place]/Lambda FLC Ratio 1.3256 0.4000 - 2.5800 [facility] Blood 04/16/2023 9:19 AM EST 04/16/2023 9:29 AM EST Narrative Resulting Agency Comment Spec In Lab Giselle Nelson MD CHEMISTRY ORDERAB LES Performing Organization Address City/[facility] Co de Phone Number [facility] [address] * Protein Electrophoresis, serum (04/16/2023 9:19 AM EST) Total Prot Electrophoresis 6.8 6.1 - 8.0 g/dL [facility] Albumin Electrophoresis 4.02 3.20 - 5.20 g/dL [facility] Alpha 1 Globulin 0.24 0.10 - 0.30 g/dL [facility] Alpha 2 Globulin 0.88 0.40 - 0.90 g/dL [facility] Beta Globulin 0.90 0.50 - 1.00 g/dL [facility] Gamma Globulin 0.77 0.50 - 1.30 g/dL [facility] M1 Band None Detected None Detected [facility] Blood 04/16/2023 9:19 AM EST 04/16/2023 9:29 AM EST Narrative Resulting Agency Comment Spec In Lab Giselle Nelson MD CHEMISTRY ORDERAB LES Performing Organization Address City/[facility] Co de Phone Number [facility] [address] * (ABNORMAL) Ferritin (04/16/2023 9:19 AM EST) Ferritin 13(L) 30 - 400 ng/mL [facility] Comment: Pediatric reference ranges not verified at [facility], interpret with caution. Reference ranges for females greater than 50 years of age approach values for men, i.e., 30-400 ng/mL. Blood 04/16/2023 9:19 AM EST 04/16/2023 9:29 AM EST Narrative Resulting Agency Comment Spec In Lab Giselle Nelson MD CHEMISTRY ORDERAB LES Performing Organization Address [facility] Co de Phone Number [facility] [address] * (ABNORMAL) Iron and TIBC (04/16/2023 9:19 AM EST) Iron 53 30 - 150 mcg/dL [facility] TIBC 442 250 - 450 mcg/dL [facility] Iron Saturation 12(L) 20 - 50 % [facility] Blood 04/16/2023 9:19 AM EST 04/16/2023 9:29 AM EST Narrative Resulting Agency Comment Spec In Lab Giselle Nelson MD CHEMISTRY ORDERAB LES Performing Organization Address City/[facility] Co de Phone Number [facility] [address] * (ABNORMAL) Hemoglobin A1c (04/16/2023 9:19 AM EST) Hemoglobin A1c 7.7(H) 4.3 - 5.6 % [facility] Comment: Reference Range: [...] Mellitus, Diabetes Care 2013; 36: Suppl. 1, S68-33 Estimated Average Glucose 173 mg/dL [facility] Comment: Note: The eAG calculation has not been proven valid for women, individuals below 18 years old or above 70 years old, or individuals with hemoglobinopathies. Estimated average glucose (eAG) is calculated from the equation described in: [employer]lo LEWIS, Tish J, Waqas R, et al. ??Translating the A1C assay into estimated average glucose values. ??Diabetes Care 2008:31(8):6731-8633. Additional resources are available on the ADA website (diabetes.org). Blood 04/16/2023 9:19 AM EST 04/16/2023 9:29 AM EST Narrative Resulting Agency Comment Spec In Lab Giselle Nelson MD CHEMISTRY ORDERAB LES [facility] [address] * Lipid Panel (Reflex Direct LDL) (04/16/2023 9:19 AM EST) Cholesterol, Total 180 mg/dL [facility] Comment: Lower Risk: <200 mg/dL Average Risk: 200-239 mg/dL Higher Risk: >ut=030 mg/dL Triglyceride 165 mg/dL [facility] Comment: Average Risk/Lower Risk: <150 mg/dL Borderline High Risk: 150-199 mg/dL High Risk: 200-499 mg/dL Very High Risk: >gg=825 mg/dL HDL Cholesterol 50 mg/dL [facility] Comment: Males: ?? Higher Risk: <40 mg/dL Females: ?? Higher Risk: <50 mg/dL LDL Cholesterol 97 mg/dL [facility] Comment: Lowest Risk: <100 mg/dL Lower Risk: 100-129 mg/dL Borderline High Risk: 130-159 mg/dL High Risk: 160-189 mg/dL Very High Risk: >aw=218 mg/dL Cholesterol/HDL Ratio 3.6 ratio [facility] Lipid Interpretation See Note [facility] Comment: Lipid management should be guided by a patient? s ASCVD risk, goals and preferences. ACC/AHA Guidelines recommend high intensity statin if clinical ASCVD or LDL greater than or equal to 190 mg/dL. http://CogMetal.com/YID-FVI-Ddcogiloj Adults aged 40-75 with LDL 70-189 mg/dL should have their 10 year ASCVD risk estimated with the ACC/AHA ASCVD risk limerock tower loader http://tools.acc.org/BEZDA-Myrr-Xchajnnod/ Statin should be discussed if risk greater [...] Lab Giselle Nelson MD CHEMISTRY ORDERAB LES [facility] [place] [address] * pro-Brain Natriuretic Peptide (04/16/2023 9:19 AM EST) NT-proBNP 58 <=124 pg/mL [facility] Blood 04/16/2023 9:19 AM EST 04/16/2023 9:29 AM EST Narrative Resulting Agency Comment Spec In Lab Giselle Nelson MD CHEMISTRY ORDERAB LES [facility] [address] [place] [address] * (ABNORMAL) Comprehensive metabolic panel (non-fasting) (04/16/2023 9:19 AM EST) Glucose 148 65 - 199 mg/dL [facility] Comment:Diabetes: >=200 mg/d L plus symptoms Blood Urea Nitrogen 16 8 - 18 mg/dL [facility] Creatinine 0.67(L) 0.70 - 1.20 mg/dL [facility] Sodium 139 135 - 145 mmol/L [facility] Potassium 4.0 3.5 - 5.0 mmol/L [facility] Comment: Please note: ??Patients with WBC >100,000 may have falsely elevated Potassium levels. ??For accurate Potassium quantification in these patients send serum separator tube (gold top) for subsequent determinations. ??Contact the Clinical Chemistry Laboratory if there are any questions. Chloride 101 98 - 107 mmol/L [facility] Carbon Dioxide 23 22 - 31 mmol/L [facility] Anion Gap 15 5 - 15 mmol/L [facility] Calcium 9.4 8.5 - 10.5 mg/dL [facility] Protein, Total 7.0 6.1 - 8.0 g/dL [facility] Albumin 4.4 3.2 - 5.2 g/dL [facility] Aspartate Aminotransferase 19 0 - 30 unit/L [facility] Alanine Aminotransferase 27 0 - 30 unit/L [facility] Alkaline Phosphatase 152(H) 35 - 105 unit/L [facility] Bilirubin, Total 0.3 0.2 - 1.3 mg/dL [facility] Est Glomerular Filtration Rate 103 >=60 mL/min/1. 73 m?? 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
--- OUTSIDE RECORDS SUMMARY | 2024-06-23 16:24 | XMS_ITS | Encounter Summary ---
Author Organization [facility] [place] [address] Care Team Providers Care Vehicle Leasing And Rental Manager Name Role Phone Moise Lala MD Primary Care Provider [phone] Reason for Visit * Auth/Cert Specialty Diagnoses [...] EUS- ENDOSCOPIC ULTRASOUND ERCP Guillermo Omer MD [facility] [place] [address] [facility] Referral ID Status Reason Start Date Expiration Date Visits Re quested Visits Authorized [id number] 1 1 Encounter Details Date Type Department Care Team (Late st Contact Info) Description 11/07/2021 7:55 AM EDT Ancillary [place] [id number] Social History Tobacco Use Types Packs/Day Years [...] XR ERCP (11/07/2021 9:46 AM EDT) Narrative [facility] - 11/07/2021 9:47 AM EDT See PACS for result report. Guillermo Omer MD IMG FILM LIBRARY ORD ERABLES Performing Organization Address City/State/[facility] [[email or web address]] Co de Phone Number [place], [place] documented in this encounter Visit Diagnoses Not on filedocumented in this encounter Care Teams Vehicle Leasing And Rental Manager Relationship Specialty Start Date End Date Moise Lala MD PCP - General Family Medicine 06/26/17 02/15/24 documented as of this encounter
--- OUTSIDE RECORDS SUMMARY | 2024-06-23 16:24 | XMS_ITS | Encounter Summary ---
Author Organization [facility] [place] [address] Care Team Providers Care Exposure Machine Operator Name Role Phone Moise Lala MD Primary Care Provider [phone] Reason for Visit * Auth/Cert (Routine) Specialty [...] 2.09) Thomas Hawthorne MD [address] [place] [address] [facility] Referral ID Status Reason Start Date Expiration Date Visits Re quested Visits Authorized [id number] 1 1 Encounter Details Date Type Department Care Team (Latest Contact Info) Description 06/23/2023 8:31 AM EST - 06/23/2023 10:36 AM EST Hospital Encounter [place] [address] Thomas Hawthorne MD [address] [place] [address] Discharge Disposition: Home Social History [...] the day after the procedure, use an hwrn-dtp-gtcxhbv spray to numb your throat. Sucking on [...] occurs, please contact your Doctor. Please call [phone] before 8pm Mon-Fri with problems, questions or concerns. If you call after 8pm or on weekends, call the Hospital at [phone] and ask to speak to the Construction Recruiter master of ceremonies and the retouching operator will contact that person for you. When should you call for help? Call [phone] anytime you think you may need emergency [...] any problems. Where can you learn more? [facility] View your After Visit Summary and more online at [email or web address] If you would like to provide feedback about your hospital experience, please call the Office of Patient and Family Relations at . If you have received this After Visit Summary in error, please immediately return it in person to the department, or notify the [facility] Privacy Office by calling toll free at between the hours of 8AM and 5PM to arrange for our retrieval of the documents at no cost to you. Content Version: 12.2 ?? [id number] [employer] Care instructions adapted under license by [facility]. If you have questions about a medical condition or this instruction, always ask your healthcare professional. [employer] disclaims any warranty or liability for your [...] 9:57 AM EST Upper Gi Endoscopy, Biopsy ([id number]) 06/23/2023 9:40 AM EST Elevated gastrin level UPPER GI ENDOSCOPY Routine 06/23/2023 9: 21 AM EST POCT GLUCOSE Routine 06/23/2023 8:57 AM EST documented in this encounter Results * Surgical Pathology Report (06/23/2023 9:57 AM EST) Final Diagnosis [id number] ? Location: 4T; 07; A The signing [...] pylori like microorganisms seen. Electronically signed by: ?aSrah BLUE, Zhou Verified: ??07/01/2023 9:20 ?? Pathologist Performed at: ??-[facility] Dept. of Pathology, [place] [address] Piping Blocker: Maxine Willis MD, FCAP, ??CLIA Certificate: [id number] ADDITIONAL STUDIES Immunohistochemistry Studies: Formalin-fixed, paraffin-embedded tissue [...] labeled E1. ??ajw 07/01/2023 9:20 AM EST [facility] GI Biopsy 06/23/2023 9:57 AM EST 06/23/2023 9:57 AM EST GI Biopsy 06/23/2023 9:57 AM EST 06/23/2023 9:57 AM EST GI Biopsy 06/23/2023 9:57 AM EST 06/23/2023 9:57 AM EST GI Biopsy 06/23/2023 9:57 AM EST 06/23/2023 9:57 AM EST GI Biopsy 06/23/2023 9:57 AM EST 06/23/2023 9:57 AM EST Thomas Hawthorne MD PATHOLOGY/CYTOLOGY ORDERABLES [facility] [place] [address] [facility] [place] [address] * Specimen to Pathology (06/23/2023 9:57 AM EST) AP Specimen 06/23/2023 9:57 AM EST 06/23/2023 9:57 AM EST Narrative [facility] - 06/23/2023 9:57 AM EST Specimen requisition ordered. ??Separate Pathology report to follow Thomas Hawthorne MD PATHOLOGY/CYTOLOGY ORDERABLES Performing Organization Address [facility] [place] [place] [address] * Specimen to Pathology (06/23/2023 9:57 AM EST) AP Specimen 06/23/2023 9:57 AM EST 06/23/2023 9:57 AM EST Narrative [facility] - 06/23/2023 9:57 AM EST Specimen requisition ordered. ??Separate Pathology report to follow Thomas Hawthorne MD PATHOLOGY/CYTOLOGY ORDERABLES Performing Organization Address [facility] [place] [place] [address] * Specimen to Pathology (06/23/2023 9:57 AM EST) AP Specimen 06/23/2023 9:57 AM EST 06/23/2023 9:57 AM EST Narrative [facility] - 06/23/2023 9:57 AM EST Specimen requisition ordered. ??Separate Pathology report to follow Thomas Hawthorne MD PATHOLOGY/CYTOLOGY ORDERABLES Performing Organization Address [facility] [place] [address] * Specimen to Pathology (06/23/2023 9:57 AM EST) AP Specimen 06/23/2023 9:57 AM EST 06/23/2023 9:57 AM EST Narrative [facility] - 06/23/2023 9:57 AM EST Specimen requisition ordered. ??Separate Pathology report to follow Thomas Hawthorne MD PATHOLOGY/CYTOLOGY ORDERABLES Performing Organization Address [facility] [place] [address] * Specimen to Pathology (06/23/2023 9:57 AM EST) AP Specimen 06/23/2023 9:57 AM EST 06/23/2023 9:57 AM EST Narrative [facility] - 06/23/2023 9:57 AM EST Specimen requisition ordered. ??Separate Pathology report to follow Thomas Hawthorne MD PATHOLOGY/[place] [address] * UPPER GI ENDOSCOPY (06/23/2023 9:21 AM EST) UPPER GI ENDOSCOPY [facility] Endoscopy Procedure Date: 06/23/2023 9:21 AM ? Patient Name: Nikia Denton ? N: [id number] ? Date of : 1965 ? Age: 57 ? Order #: [id number] ? Instrument Name: [id number] ? Procedure: ? Upper GI endoscopy Indications: ? Chronic diarrhea, elevated ? gastrin/chromogranin levels, ? diffuse gastric uptake on NetSpot Providers: ? Thomas Hawthorne, Alcon Rodriguez, ? RN, Janelle Brewer, Tanker Driver Referring MD: ?Moise Lala, Ana Maria Zacarias [...] the ? physician, the nurse, the ? asbestos cloth inspector and the termite technician. The ? procedure was verified in [...] care under ? the supervision of a ROUGE SIFTER was ? determined to be medically ? [...] Glucose, POC 116 65 - 199 mg/dL [facility] Comment: Supplemental ranges: <140 mg/dL before meals <180 mg/dL all other times of the day Blood 06/23/2023 8:57 AM EST 06/23/2023 8:57 AM EST Thomas Hawthorne MD POINT OF CARE TEST ORDERABLES Performing Organization Address [facility] Co de Phone Number [facility] [place] [address] documented in this encounter Visit Diagnoses Not [...] CRNA) documented in this encounter Care Teams Exposure Machine Operator Relationship Specialty Start Date End Date Raser, Moise, MD PCP - General Family Medicine 06/26/17 02/15/24 documented as of this encounter
--- OUTSIDE RECORDS SUMMARY | 2024-06-23 16:24 | XMS_ITS | Encounter Summary ---
Author Organization [facility] [place] [address] Care Team Providers Care Systems Auditor Name Role Phone Moise Lala MD Primary Care Provider [phone] Reason for Visit * Auth/Cert Specialty Diagnoses [...] EUS- ENDOSCOPIC ULTRASOUND ERCP Guillermo Omer MD [facility] [place] [address] [facility] Referral ID Status Reason Start Date Expiration Date Visits Re quested Visits Authorized [id number] 1 1 Encounter Details Date Type Department Care Team (Late st Contact Info) Description 11/07/2021 8:28 AM EDT Anesthesia Event [place] [id number] Alona Holliday MD [facility] [place] [address] Anesthesia Record Procedure Summary Procedure Name Responsible Anesthesiologist Anesthesia Start Time Anesthesia Stop Time UPPER EUS- ENDOSCOPIC ULTRASOUND (WRVU 3.47) (Trunk) Alona Holliday MD 11/07/21 0828 11/07/21 0955 Events Date Time Event Comment 11/07/2021 0759 0828 AN Verify 0828 Start 0828 An Start Data 0833 An Induction 0833 Anesthesia Ready 0854 an candy now 0854 An Induction Convert to gene [facility] with ett for ERCP 0856 An [...] 0750; metacarpal vein (top of hand), right; vaeo-lii-aqzrdq catheter system; 22 gauge; intradermal injection; LDA [...] Note Patient: Nikia Denton Procedure Summary Date: 11/07/21 Room / Location: [facility] 2 / [facility] Anesthesia Start: 827 Anesthesia Stop: 954 [...] All Anesthesia Providers: Anesthesiologist: Alona Holliday MD COMBAT CONTROL MANAGER: Arnoldo Angel CRNA Vitals Value Taken Time BP 136/92 11/07/21 1030 Temp Pulse Resp 18 11/07/21 1020 SpO2 98 % 11/07/21 1040 Pain Level 0 11/07/21 1005 Vitals shown include unvalidated device data. Patient Location: PACU/[facility] Level of Consciousness: Awake and Alert Pain [...] 2.23) performed by Kody Toth MD at [facility] MA[facility] OR ? ? PRO LAPAROSCOPY W TOT HYSTERECTUTERUS <=250 GRAM W TUBE/OVARY N/A 08/19/2017 LAPAROSCOPY, TOTAL HYST, UTERUS<250GMS, REM TUBE &/OR OVARY (WRVU 15) performed by Kody Toth MD at [facility] Social History Tobacco Use [...] risks discussed with patient. Plan discussed with COMBAT CONTROL MANAGER and attending. Anesthesia Screening documented in this [...] mg documented in this encounter Care Teams Systems Auditor Relationship Specialty Start Date End Date Moise Lala MD PCP - General Family Medicine 06/26/17 02/15/24 documented as of this encounter
--- OUTSIDE RECORDS SUMMARY | 2024-06-23 16:24 | XMS_ITS | Encounter Summary ---
Author Organization [facility] [place] [address] Care Team Providers Care V Belt Skiver Name Role Phone Moise Lala MD Primary Care Provider [phone] Reason for Referral * Diagnostic Test (Routine) - Closed Specialty Diagnoses / Procedures Referred By Contac t Referred To Contact Radiology Diagnoses Diarrhea, unspecified type Elevated gastrin level Procedures NM PET CT Neuroendocrine (DETECTNET) Ana Maria Zacarias MD [facility] DR [place] [address] [place] [address] Referral ID Status Reason Start Date Expiration Date V isits Requested Visits Authorized [id number] Closed Specialty Service Requested 04/11/2023 10/09/2024 1 1 Encounter Details Date Type Department Care Team (Late st Contact Info) Description 04/11/2023 Telephone [place] [address] Ana Maria Zacarias MD [facility] [place] [address] Social History Tobacco Use Types [...] have questions please contact the health child daycare worker that requested your imaging first. ? Electronically signed by: Florentin Kitchen MD, [facility] ([phone]), at 05/16/2023 3:11 PM Narrative 05/16/2023 3:11 [...] who have questions please contactthe health child daycare worker that requested your imaging first. Electronically signed by: Florentin Kitchen MD, [facility]([phone]), at 05/16/2023 3:11 PM Ana Maria Zacarias MD IMG PET ORDERABLES documented in this encounter Visit Diagnoses Diagnosis Diarrhea, unspecified type Elevated gastrin level Abnormality of secretion of gastrin Diarrhea, unspecified type Elevated gastrin level Abnormality of secretion of gastrin documented in this encounter Care Teams V Belt Skiver Relationship Specialty Start Date End Date Moise Lala MD PCP - General Family Medicine 06/26/17 02/15/24 documented as of this encounter
--- OUTSIDE RECORDS SUMMARY | 2024-06-23 16:24 | XMS_ITS | Encounter Summary ---
Author Organization [facility] [place] [address] Care Team Providers Care Travelift Operator Name Role Phone Moise Lala MD Primary Care Provider [phone] Encounter Details Date Type Department Care Team (Late st Contact Info) Description 11/12/2021 Orders Only [place] [address] Thomas Hawthorne MD [facility] DR [place] [address] Social History Tobacco Use Types Packs/Day Years [...] on filedocumented in this encounter Care Teams Travelift Operator Relationship Specialty Start Date End Date Moise Lala MD PCP - General Family Medicine 06/26/17 02/15/24 documented as of this encounter
--- OUTSIDE RECORDS SUMMARY | 2024-06-23 16:24 | XMS_ITS | Encounter Summary ---
[place] [address] Care Team Providers Care Textile Broker Name Role Phone Moise Lala MD Primary Care Provider [phone] Reason for Referral * Consultation (Routine) - Closed Specialty Diagnoses / Procedures Referred By Contac t Referred To Contact Weight and Wellness Diagnoses Class 2 severe obesity due to excess calories with serious comorbidity and body mass index (BMI) of 37.0 to 37.9 in adult Ana Maria Zacarias MD [facility] [place] [address] [facility] [place] [address] Referral ID Status Reason Start Date Expiration Date V isits Requested Visits Authorized [id number] Closed Consult, Test & Treat 04/08/2023 04/07/2024 1 1 * Consultation (Routine) - Closed Specialty Diagnoses / Procedures Referred By Contluda t Referred To Contact Gastroenterology Diagnoses Diarrhea, unspecified type Ana Maria Zacarias MD [facility] [place] [address] Franchesca Folres, PhD [facility] [place] [address] Referral ID Status Reason Start Date Expiration Date V isits Requested Visits Authorized [id number] Closed Consult, Test & Treat 04/08/2023 04/07/2024 1 1 Reason for Visit * Consultation (Routine) - Closed Specialty Diagnoses / Procedures Referred By Gael ritter Referred To Contact Gastroenterology Diagnoses Enlarged liver Fatty liver RUQ pain Diarrhea, unspecified type fatty liver/ ruq pain/diarrhea Yasmeen Lala, SUPERVISOR SILVERING DEPARTMENT [address] [place] [address] [facility] [place] [address] [address] Referral ID Status Reason Start Date Expiration Date V isits Requested Visits Authorized [id number] Closed Consult, Test & Treat PCP Updated and/or Approved 01/15/2023 01/15/2024 12 12 Encounter Details Date Type Department Care Team (Late st Contact Info) Description 04/08/2023 9:30 AM EST Office Visit Gastroenterology at [place] [phone] Ana Maria Zacarias MD [facility] [place] [address] Insomnia; Elevated liver enzymes; Diarrhea, unspecified type; [...] not included. HEPATOLOGY CONSULTATION Nikia Denton 1965 ANATOMIC PATHOLOGY ASSISTANT: Ana Maria Zacarias MD ([id number]) PCP: Moise Lala MD Requesting Provider: Yasmeen Lala, SUPERVISOR SILVERING [employer]PARTMENT [address] [place] [address] REASON FOR CONSULTATION MASLD HISTORY OF PRESENT ILLNESS Nikia Denton is a 57 y.o. year old history of diabetes, hypertension, and hyperlipidemia. She reports having diarrhea since her cholecystectomy and ERCP 2 years intermittently. She reports diarrhea occurs a few times per weeks, 5-7 BM, Dupage type 7, without blood, bright yellow. She reports having Dupage type 6, with 2 BM per day. [...] 1-2 tablets at HS (Patient taking differently: [id number] mg by mouth nightly.) 90 tablet 0 [...] Range Status UPPER ENDOSCOPIC ULTRASOUND 11/07/2021 Final Value:[facility] Procedure Date: 11/07/2021 8:19 AM Patient Name: Nikia Denton Date of : 1965 Age: 55 Order #: [id number] Instrument Name: [id number] Procedure: Upper EUS Indications: Choledocholithiasis on MRCP, [...] the entire procedure. Guillermo Omer MD 11/07/2021 10:07:21 AM This report has been signed electronically. Number of Addenda: 0 Note Initiated On: 11/07/2021 8:19 AM ERCP 11/07/2021 Final Value:[facility] Procedure Date: 11/07/2021 8:06 AM Patient Name: Nikia Denton Date of : 1965 Age: 55 Order #: [id number] Instrument Name: [id number] Procedure: ERCP Indications: Abnormal MRCP, Abnormal endoscopic ultrasound of the biliary system, Evaluation and possible treatment of bile duct stone(s) Providers: Guillermo Omer MD, Clau Livingston RN, Buster Staton Referring MD: Moise Lala Medicines: General Anesthesia, Indomethacin 100 mg VA Complications: No immediate complications. Procedure: Pre-Anesthesia Assessment: [...] patient tolerated the procedure well. Findings: A foreign clerk film of the abdomen was obtained. Surgical [...] sphincterotomy was made with a monofilament CleverCut llhe-cac-mjsn sphincterotome using ERBE electrocautery. The sphincterotomy oozed [...] ASSESSMENT/PLAN #Elevated liver enzymes, likely MASH Reviewed [facility] risk factors. Referred to weight and wellness. [...] Ana Maria Zacarias MD Hepatology and Gastroenterology [facility] Dr. DumontVALENCIA V: [phone] Copy: Moise Lala MD [address] [place] [address] / [facility] [address] Time spent reviewing records prior to this [...] Stimulating Hormone 1.49 0.27 - 4.20 mcIU/mL [facility] Comment: Reference Interval (mcIU/mL): Females: ??First Trimester: 0.23-3.88 ??Second Trimester: 0.22-3.90 ??Third Trimester: 0.44-4.66 Blood 04/08/2023 10:5 7 AM EST 04/08/2023 11:02 AM EST Narrative Resulting Agency Comment Spec In Lab Ana Maria Zacarias MD CHEMISTRY ORDERABLES [facility] [place] [address] * (ABNORMAL) Gastrin (04/08/2023 10:57 AM EST) Gastrin (SEPTEMBER) 215(H) pg/mL [facility] Comment: REFERENCE VALUE <100 Reference ranges valid for >= 8 hour fast. Test Performed by: [facility] - [facility] [address] [place] [address] Automotive Alignment Specialist: Alexis Potter M.D. Ph.D.; CLIA# [id number] Blood 04/08/2023 10:5 7 AM EST 04/08/2023 1:21 PM EST Narrative Resulting Agency Comment Spec In Lab Ana Maria Zacarias MD LAB SEND OUT ORDERAB LES [facility] [place] [address] * (ABNORMAL) Chromogranin A (04/08/2023 10:57 AM EST) Chromogranin A (SEPTEMBER) 575(H) <93 ng/mL [facility] Comment: Impaired renal or hepatic function or treatment with proton pump inhibitors may result in artifactual elevations of Chromogranin A. ADDITIONAL INFORMATION This test was developed and its performance characteristics determined by [facility] in a manner consistent with CLIA [...] a homogeneous time-resolved immunofluorescent assay manufactured by [employer] and performed on the Remotium Kryptor Compact Plus. Values obtained with different assay methods or kits may be different and cannot be used interchangeably. Test results cannot be interpreted as absolute evidence for the presence or absence of malignant disease. Test Performed by: [facility] - [facility] [address] [place] [address] Automotive Alignment Specialist: Alexis Potter M.D. Ph.D.; CLIA# [id number] Blood 04/08/2023 10:5 7 AM EST 04/08/2023 1:21 PM EST Narrative Resulting Agency Comment Spec In Lab Ana Maria Zacarias MD LAB SEND OUT ORDERAB LES Performing Organization Address City/[facility]/ZIP Co de Phone Number [facility] [place] [address] * HIV Screen, 4th Generation ([facility]/CGP/APD/NLH) (04/08/2023 10:57 AM EST) HIV Ab/Ag Screen Negative Negative [facility] Comment: This 4th Generation HIV [...] HIV Comment Low Risk of HIV Infection [facility] Blood 04/08/2023 10:5 7 AM EST 04/08/2023 11:02 AM EST Narrative Resulting Agency Comment Spec In Lab Ana Maria Zacarias MD CHEMISTRY ORDERABLES Performing Organization Address [facility] Co de Phone Number [facility] [place] [address] * Hepatitis C Antibody (04/08/2023 10:57 AM EST) Hepatitis C Antibody Negative Negative [facility] Blood 04/08/2023 10:5 7 AM EST 04/08/2023 11:02 AM EST Narrative Resulting Agency Comment Spec In Lab Ana Maria Zacarias MD CHEMISTRY ORDERABLES Performing Organization Address [facility] Co de Phone Number [facility] [place] [address] * Hepatitis B Core Antibody, Total (04/08/2023 10:57 AM EST) Hepatitis B Core Antibody Negative Negative [facility] Blood 04/08/2023 10:5 7 AM EST 04/08/2023 11:02 AM EST Narrative Resulting Agency Comment Spec In Lab Ana Maria Zacarias MD CHEMISTRY ORDERABLES Performing Organization Address City/[facility] Co de Phone Number [facility] [place] [address] * Hepatitis B Surface Antigen (04/08/2023 10:57 AM EST) Hepatitis B Surface Antigen Negative Negative [facility] Blood 04/08/2023 10:5 7 AM EST 04/08/2023 11:02 AM EST Narrative Resulting Agency Comment Spec In Lab Ana Maria Zacarias MD CHEMISTRY ORDERABLES Performing Organization Address [facility] Co de Phone Number [facility] [place] [address] * Hepatitis B Surface Antibody (04/08/2023 10:57 AM EST) Hepatitis B Surface Antibody, Quantitative 43.0 IU/L [facility] Comment: HepB Surface Ab Quant: Unvaccinated: < 8.5 IU/L Vaccinated: >= 11.5 IU/L Hepatitis B Surface Antibody Positive [facility] Comment: Patient is considered to be immune to HBV infection. Expected Results: Vaccinated: Positive Unvaccinated: Negative Blood 04/08/2023 10:5 7 AM EST 04/08/2023 11:02 AM EST Narrative Resulting Agency Comment Spec In Lab Ana Maria Zacarias MD CHEMISTRY ORDERABLES Performing Organization Address City/[facility] Co de Phone Number [facility] [place] [address] * Hepatitis A Antibody, Total (04/08/2023 10:57 AM EST) Hepatitis A ANTIBODY, TOTAL Negative Negative [facility] Blood 04/08/2023 10:5 7 AM EST 04/08/2023 11:02 AM EST Narrative Resulting Agency Comment Spec In Lab Ana Maria Zacarias MD CHEMISTRY ORDERABLES Performing Organization Address [facility] Co de Phone Number [facility] [place] [address] * Prothrombin Time (04/08/2023 10:57 AM EST) Prothrombin Time 11.0 9.4 - 12.5 sec [facility] International Normalization Ratio 1.0 [facility] Comment: An INR <2.0 indicates [...] MD HEMATOLOGY ORDERABLE S Performing Organization Address [facility] Co de Phone Number [facility] [place] [address] * (ABNORMAL) Comprehensive metabolic panel (non-fasting) (04/08/2023 10:57 AM EST) Glucose 126 65 - 199 mg/dL [facility] Comment:Diabetes: >=200 mg/d L plus symptoms Blood Urea Nitrogen 17 8 - 18 mg/dL [facility] Creatinine 0.68(L) 0.70 - 1.20 mg/dL [facility] Sodium 138 135 - 145 mmol/L [facility] Potassium 3.8 3.5 - 5.0 mmol/L [facility] Comment: Please note: ??Patients with WBC >100,000 may have falsely elevated Potassium levels. ??For accurate Potassium quantification in these patients send serum separator tube (gold top) for subsequent determinations. ??Contact the Clinical Chemistry Laboratory if there are any questions. Chloride 103 98 - 107 mmol/L [facility] Carbon Dioxide 23 22 - 31 mmol/L [facility] Anion Gap 12 5 - 15 mmol/L [facility] Calcium 9.0 8.5 - 10.5 mg/dL [facility] Protein, Total 6.8 6.1 - 8.0 g/dL [facility] Albumin 4.1 3.2 - 5.2 g/dL [facility] Aspartate Aminotransferase 20 0 - 30 unit/L [facility] Alanine Aminotransferase 24 0 - 30 unit/L [facility] Alkaline Phosphatase 137(H) 35 - 105 unit/L [facility] Bilirubin, Total 0.2 0.2 - 1.3 mg/dL [facility] Est Glomerular Filtration Rate 102 >=60 mL/min/1. 73 m?? [facility] Comment: This patient's estimated GFR [...] Lab Ana Maria Zacarias MD CHEMISTRY ORDERABLES [facility] [place] [address] documented in this encounter Visit Diagnoses Diagnosis Insomnia Insomnia, unspecified Elevated liver enzymes Nonspecific elevation of levels of transaminase or lactic acid dehydrogenase (LDH) Diarrhea, unspecified type Class 2 severe obesity due to excess calories with serious comorbidity and body mass index (BMI) of 37.0 to 37.9 in adult documented in this encounter Care Teams Textile Broker Relationship Specialty Start Date End Date Moise Lala MD PCP - General Family Medicine 06/26/17 02/15/24 documented as of this encounter
--- OUTSIDE RECORDS SUMMARY | 2024-06-23 16:24 | XMS_ITS | Encounter Summary ---
Author Organization Formerly [facility] [place] [address] Care Team Providers Care Design Supervisor Name Role Phone Moise Lala MD Primary Care Provider [phone] Reason for Visit * Auth/Cert (Routine) Specialty [...] 2.09) Thomas Hawthorne MD [address] [place] [address] [facility] Referral ID Status Reason Start Date Expiration Date Visits Re quested Visits Authorized [id number] 1 1 Encounter Details Date Type Department Care Team (Late st Contact Info) Description 06/23/2023 9:42 AM EST Anesthesia [place] [address] Kaya Cha MD [facility] [place] [address] Anesthesia Record Procedure Summary Procedure Name Responsible [...] 0750; metacarpal vein (top of hand), right; xvno-zpa-awiqof catheter system; 22 gauge; intradermal injection; LDA [...] by Arnoldo Angel CRNA 06/23/23 1025 by Snoia Duran RN PIV 06/23/23; 0859; ycyv-ejh-fkylvs catheter system; 22 gauge; metacarpal vein (top [...] Procedure Summary Date: 06/23/23 Room / Location: [facility] 3 / [facility] Anesthesia Start: 941 Anesthesia Stop: 999 Procedure: EGD WITH BIOPSY (WRVU 2.39) (Trunk) Diagnosis: Elevated gastrin level (elevated gastrin, net spot with diffuse uptake (rads does not think cancer), bx stomach (?atrophicgastritis)) Surgeons: Thomas Hawthorne MD Responsible Provider: Kaya Cha MD Anesthesia Type: MAC ASA Status: 3 All Anesthesia Providers: Anesthesiologist: Kaya Cha MD GETTER OPERATOR: Alexis Pemberton CRNA Vitals Value Taken Time BP 104/68 06/23/23 1020 Temp Pulse Resp 9 06/23/23 1020 SpO2 98 % 06/23/23 1022 Pain Level 0 06/23/23 1020 Vitals shown include unfiled device data. Patient Location: PACU/[facility] Level of Consciousness: Conscious but Sleepy [...] 2.23) performed by Kody Toth MD at [facility] OR ??? PRO ENDOSCOPIC US EXAM, ESOPH N/A 11/07/2021 UPPER EUS- ENDOSCOPIC ULTRASOUND performed by Guillermo Omer MD at [facility] ??? PRO ERCP, SPHINCTEROTOMY N/A 11/07/2021 ERCP W/SPHINCTEROTOMY/PAPILLOTOMY performed by Guillermo Omer MD at [facility] ??? PRO ERCP, W/REMOVAL STONE, PEDRO/PANCR DUCTS 11/07/2021 ERCP W/REMOVAL CALCULI/DEBRIS FROM BILARY/PANCREATIC DUCT(S) performed by Guillermo Omer MD at [facility] ? ? PRO LAPAROSCOPY W TOT HYSTERECTUTERUS <=250 GRAM W TUBE/OVARY N/A 08/19/2017 LAPAROSCOPY, TOTAL HYST, UTERUS<250GMS, REM TUBE &/OR OVARY (WRVU 15) performed by Kody Toth MD at [facility] Social History Tobacco Use [...] risks discussed with patient. Plan discussed with GETTER OPERATOR and attending. Anesthesia Screening documented in [...] mg documented in this encounter Care Teams Design Supervisor Relationship Specialty Start Date End Date Moise Lala MD PCP - General Family Medicine 06/26/17 02/15/24 documented as of this encounter
--- OUTSIDE RECORDS SUMMARY | 2024-06-23 16:24 | XMS_ITS | Encounter Summary ---
[place] [address] Care Team Providers Care Craft Worker Name Role Phone Moise Lala MD Primary Care Provider [phone] Reason for Referral * Surgical (Urgent) - Closed Specialty Diagnoses / Procedures Referred By Contac t Referred To Contact Gastroenterology Diagnoses Calculus of common duct Calculus of common duct Procedures EUS and possible ERCP (pending EUS findings) within 2 weeks for possible retained gallstones suggested on outside MRI imaging in setting of abdo pain; post CCY. Moise Lala MD [address] [place] [address] [place] [address] [facility] [address] [place] [address] Referral ID Status Reason Start Date Expiration Date V isits Requested Visits Authorized [id number] Closed Consult, Test & Treat PCP Updated and/or Approved 10/23/2021 10/23/2022 6 6 Encounter Details Date Type Department Care Team (Late st Contact Info) Description 10/23/2021 Transcribe Orders eDH Incoming Referrals [phone] Moise Lala MD [address] [place] [address] [place] [address] Calculus of common duct Social [...] obstruction documented in this encounter Care Teams Craft Worker Relationship Specialty Start Date End Date Moise Lala MD PCP - General Family Medicine 06/26/17 02/15/24 documented as of this encounter
--- OUTSIDE RECORDS SUMMARY | 2024-06-23 16:24 | XMS_ITS | Encounter Summary ---
[place] [address] Care Team Providers Care Assistant Press Operator Offset Name Role Phone Moise Lala MD Primary Care Provider [phone] Encounter Details Date Type Department Care Team [...] on filedocumented in this encounter Care Teams Assistant Press Operator Offset Relationship Specialty Start Date End Date Moies Lala MD PCP - General Family Medicine 06/26/17 02/15/24 documented as of this encounter
--- OUTSIDE RECORDS SUMMARY | 2024-06-23 16:24 | XMS_ITS | Encounter Summary ---
Author Organization [facility] [place] [address] Care Team Providers Care Aluminum Sheet Cutter Name Role Phone Moise Lala MD Primary Care Provider [phone] Encounter Details Date Type Department Care Team (Late st Contact Info) Description 11/07/2021 Notes [place] [address] Alek Salmeron Jr. Social History Tobacco Use [...] PI: Emil Thomas MD MS Sanz # [id number] Objective of visit: Alek Lea Jr , research coordinator, and Dr. Omer met with Nikia Denton in [facility] to provide information regarding protocol [id number], answer questions or concerns about study plan, [...] will continue to be screened on study [id number] to determine if patient meets criteria during [...] on filedocumented in this encounter Care Teams Aluminum Sheet Cutter Relationship Specialty Start Date End Date Moise Lala MD PCP - General Family Medicine 06/26/17 02/15/24 documented as of this encounter
--- OUTSIDE RECORDS SUMMARY | 2024-06-23 16:24 | XMS_ITS | Encounter Summary ---
Author Organization [facility] [place] [address] Care Team Providers Care Pca Name Role Phone Moise Lala MD Primary Care Provider [phone] Reason for Visit * Diagnostic Test (Routine) - Closed Specialty Diagnoses / Procedures Referred By Contac t Referred To Contact Radiology Diagnoses Diarrhea, unspecified type Elevated gastrin level Procedures NM PET CT Neuroendocrine (DETECTNET) Ana Maria Zacarias MD [facility] [place] [address] [place] [address] Referral ID Status Reason Start Date Expiration Date V isits Requested Visits Authorized [id number] Closed Specialty Service Requested 04/11/2023 10/09/2024 1 1 Encounter Details Date Type Department Care Team (Latest Contact Info) Description 05/09/2023 11:25 AM EST - 05/09/2023 11:59 PM [facility] Encounter [place] [address] Ana Maria Zacarias MD [facility] [place] [address] Discharge Disposition: Home Social History [...] who have questions please contact the health intensive care specialist that requested your imaging first. ? Electronically signed by: Florentin Kitchen MD, [facility] ([phone]), at 05/16/2023 3:11 PM Narrative 05/16/2023 3:11 [...] patients who have questions please contactthe health intensive care specialist that requested your imaging first. Electronically signed by: Florentin Kitchen MD, [facility]([phone]), at 05/16/2023 3:11 PM Ana Maria Zacarias [...] mCi documented in this encounter Care Teams Pca Relationship Specialty Start Date End Date Moise Lala MD PCP - General Family Medicine 06/26/17 02/15/24 documented as of this encounter
--- OUTSIDE RECORDS SUMMARY | 2024-06-23 16:25 | XMS_ITS | Encounter Summary ---
[place] [address] Care Team Providers Care Membership Manager Name Role Phone Moise Lala MD Primary Care Provider [phone] Reason for Visit * Reason Comments Follow-up 08/19/17-hyst-5 week f ollow up Encounter Details Date Type Department Care Team (Late st Contact Info) Description 09/22/2017 10:45 AM EDT Office Visit Obstetrics [place] [id number] Kody Toth MD Postop check Social History [...] MD - 09/22/2017 10:45 AM EDT S: Nikia presents for a 5 week postop visit [...] surgery documented in this encounter Care Teams Membership Manager Relationship Specialty Start Date End Date Moise Lala MD PCP - General Family Medicine 06/26/17 02/15/24 documented as of this encounter
--- OUTSIDE RECORDS SUMMARY | 2024-06-23 16:25 | XMS_ITS | Encounter Summary ---
Author Organization [facility] [place] [place] [address] Care Team Providers Care Hearing Screen Coordinator Name Role Phone Moise Lala MD Primary Care Provider Reason for Visit * Reason Comments Post Op Encounter Details Date Type Department Care Team (Late st Contact Info) Description 09/01/2017 9:30 AM EDT Office Visit Obstetrics [place] [address] Melody Lindo MD [facility]ST[facility] [place] [address] Urinary frequency; Abnormal uterine bleeding Social History [...] exam and performed a bimanual confirming Dr. Lidno's findings. Physiologic discharge, no vaginal bleeding. Advised [...] RBC, Urine 6(H) 0 - 4 /HPF [facility] WBC, Urine 2 0 - 5 /HPF [facility] Squamous Epithelial Cells Raw Data, Urine 9(H) <=4 /HPF [facility] Transitional Epithelial Cells, Urine <1 <=1 /HPF [facility] Renal Epithelial Cells, Urine <1(H) <=0 /HPF [facility] Hyaline Casts, Urine 3(H) 0 - 2 /LPF [facility] Urine specimen obtained by clean catch procedure (specimen) 09/01/2017 10:15 AM EDT 09/01/2017 10:44 AM EDT Narrative Resulting Agency Comment Spec In Lab Melody Lindo MD URINE ORDERABLES [facility] [place] [address] * (ABNORMAL) Urinalysis with reflex Culture (09/01/2017 10:15 AM EDT) Glucose, Urine Dipstick Negative Negative mg/dL [facility] Protein, Urine Dipstick 30(A) Negative mg/dL [facility] Bilirubin, Urine Dipstick Negative Negative mg/dL [facility] Comment: Clinical correlation required for positive Urine Bilirubin results as false positive may occur with some drugs and drug related products. If a false positive is suspected a serum total bilirubin should be considered if clinically indicated. Urobilinogen, Urine Dipstick Normal Normal mg/dL [facility] pH, Urn (dipstick) 5.0 5.0 - 8.0 [facility] Blood, Urine Dipstick Negative Negative mg/dL [facility] Ketone, Urine Dipstick 5(A) Negative mg/dL [facility] Nitrite, Urine Dipstick Negative Negative [facility] Leukocytes, Urine Dipstick Negative Negative [facility] Appearance, Urine Dipstick Hazy(A) Clear [facility] Specific [place] Urine Automated >1.035(H) 1.002 - 1.030 [facility] Color, Urine Dipstick Yellow Yellow [facility] Reflex to Culture No [facility] Urine specimen obtained by clean catch procedure (specimen) 09/01/2017 10:15 AM EDT 09/01/2017 10:44 AM EDT Narrative Resulting Agency Comment Spec In Lab Rain Gauthier MD URINE ORDERABLES [facility] [place] [address] * Bladder Scanner (09/01/2017) Bladder Scan (mL) 32 mL Rain Gauthier MD URO PROC W/O RFL ORD ERABLES documented in this encounter Visit Diagnoses Diagnosis Urinary frequency Abnormal uterine bleeding Unspecified disorder of menstruation and other abnormal bleeding from female genital tract documented in this encounter Care Teams Hearing Screen Coordinator Relationship Specialty Start Date End Date Moise Lala MD PCP - General Family Medicine 06/26/17 02/15/24 documented as of this encounter
--- OUTSIDE RECORDS SUMMARY | 2024-06-23 16:25 | XMS_ITS | Encounter Summary ---
Author Organization [facility] [place] [address] Care Team Providers Care Clinical Rehabilitation Specialist Name Role Phone Yumiko Barahona MD Primary Care Provider Reason for Visit * Reason Comments Rheumatoid Arthritis Encounter Details Date Type Department Care Team (Late st Contact Info) Description 04/02/2011 8:45 AM EST Office [place] [phone] Alexis Kamara MD [facility] [place] [place] [address] Insomnia; Sleep apnea; Trochanteric bursitis Discharge Disposition: [...] that she should use a CPAP in [place], 2 years ago. Mother notes apnea. Awakes tired every dose. Other Medical Problems. 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
--- OUTSIDE RECORDS SUMMARY | 2024-06-23 16:25 | XMS_ITS | Encounter Summary ---
[place] [address] Care Team Providers Care Smoked Meat Preparer Name Role Phone Moise Lala MD Primary Care Provider [phone] Encounter Details Date Type Department Care Team (Late st Contact Info) Description 08/22/2017 Telephone Obstetrics [place] [phone] Kody Toth MD Social History Tobacco Use [...] Long MD Verified: ??08/22/2017 ?Pathologist Performed at: ??-[facility] Dept. of Pathology, [place], [place] She states she is feeling well, has had a bowel movement, taking mainly tylenol and ibuprofen. No fever or chills, no signs of infection at incision sites. She will follow-up as scheduled for her postop visit, sooner prn. Kody Ttoh MD documented in this encounter Plan of Treatment Not on file documented as of this encounter Visit Diagnoses Not on filedocumented in this encounter Care Teams Smoked Meat Preparer Relationship Specialty Start Date End Date Moise Lala MD PCP - General Family Medicine 06/26/17 02/15/24 documented as of this encounter
--- OUTSIDE RECORDS SUMMARY | 2024-06-23 16:25 | XMS_ITS | Encounter Summary ---
Author Organization [facility] [place] [address] Care Team Providers Care Archeologist Classical Name Role Phone Moise Lala MD Primary Care Provider [phone] Encounter Details Date Type Department Care Team (Late st Contact Info) Description 08/08/2017 4:20 PM EDT Clinical [place] [address] Social History Tobacco Use Types [...] on filedocumented in this encounter Care Teams Archeologist Classical Relationship Specialty Start Date End Date Moise Lala MD PCP - General Family Medicine 06/26/17 02/15/24 documented as of this encounter
--- OUTSIDE RECORDS SUMMARY | 2024-06-23 16:25 | XMS_ITS | Encounter Summary ---
[place] [address] Care Team Providers Care Clerical Assistant Name Role Phone Moise Lala MD Primary Care Provider Encounter Details Date Type Department Care Team (Late st Contact Info) Description 07/11/2017 Telephone Obstetrics [place] [phone] Kody Toth MD Social History Tobacco Use [...] John Arias Verified: ??07/07/2017 ?Pathologist Performed at: ??-[facility] Dept. of Pathology, [place], [place] Patient contacted with endometrial biopsy results [...] on filedocumented in this encounter Care Teams Clerical Assistant Relationship Specialty Start Date End Date Moise Lala MD PCP - General Family Medicine 06/26/17 02/15/24 documented as of this encounter
--- OUTSIDE RECORDS SUMMARY | 2024-06-23 16:25 | XMS_ITS | Encounter Summary ---
[place] [address] Care Team Providers Care Vp Training Name Role Phone Moise Lala MD Primary Care Provider [phone] Encounter Details Date Type Department Care Team (Late st Contact Info) Description 08/08/2017 3:45 PM EDT Office [place] [phone] Social History Tobacco Use Types Packs/Day Years [...] filedocumented in this encounter Care Teams Vp Training Relationship Specialty Start Date End Date Moise Lala MD PCP - General Family Medicine 06/26/17 02/15/24 documented as of this encounter
--- OUTSIDE RECORDS SUMMARY | 2024-06-23 16:25 | XMS_ITS | Encounter Summary ---
[place] [address] Care Team Providers Care Reed Or Wind Instrument Tuner Name Role Phone Moise Lala MD Primary Care Provider [phone] Encounter Details Date Type Department Care Team (Late st Contact Info) Description 08/08/2017 5:05 PM EDT [place] [phone] Social History Tobacco Use Types Packs/Day Years [...] on filedocumented in this encounter Care Teams Reed Or Wind Instrument Tuner Relationship Specialty Start Date End Date Moise Lala MD PCP - General Family Medicine 06/26/17 02/15/24 documented as of this encounter
--- OUTSIDE RECORDS SUMMARY | 2024-06-23 16:25 | XMS_ITS | Encounter Summary ---
[place] [address] Care Team Providers Care Director Of Strategic Marketing Name Role Phone Moise Lala MD Primary Care Provider [phone] Reason for Visit * Auth/Cert Specialty Diagnoses / Procedures Referred By Contluda t Referred To Contact Diagnoses Morbid (severe) obesity due to excess calories Nicotine dependence, unspecified, uncomplicated Abnormal uterine bleeding (AUB) perimenopausal AUB Procedures PRO LAPAROSCOPY W TOT HYSTERECT UTERUS 250 GRAM OR LESS LAPAROSCOPY, HYSTERECTOMY, UTERUS<250GMS (WRVU 13.36) Referral ID Status Reason Start Date Expiration Date Visits Re quested Visits Authorized [id number] 1 1 Encounter Details Date Type Department Care Team (Latest Contact Info) Description 08/19/2017 5:50 AM EDT - 08/20/2017 10:30 AM EDT Hospital Encounter [place] [address] Kody Toth MD Morbid obesity; Tobacco use [...] Nikia Denton Patient Age: 51 y.o. Language: Greek Race: White Ethnicity: Not nor Admit date: 08/19/2017 Discharge date and time: 08/20/17 8:59 AM Attending Physician: Kody Toth MD Discharge Physician: Kody Toth MD Follow-up Recommendations for Providers: -- 4-6 weeks for postoperative visit -- Final surgical pathology Inpatient Provider Contact Information: [facility] Department, Discharge Diagnoses (Hospital Problems) and Secondary [...] at Discharge: Patient Instructions PATIENT DISCHARGE INSTRUCTIONS [facility] Department: Follow Up Appointment: --Postoperative visit in [...] None Provider Contact Information: Moise Lala MD [phone] documented in this encounter Discharge Instructions * Patient Instructions* Melody Lindo - 08/19/2017 10:53 AM EDT Images from the original note were not included. PATIENT DISCHARGE INSTRUCTIONS [facility] Department: Follow Up Appointment: --Postoperative visit in [...] not included. Gynecology Daily Progress Note ID: Nikai Denton is an 51 y.o. woman with [...] home pending voiding trial. Please see s tetx-based assessment below. Neuro/Pain Control: History of fibromyalgia. [...] Dr. Toth. Melody Lindo MD PGY-1 08/20/17 FITTER HAND Service Pager: [phone] Associated attestation - Kody Toth MD - [...] Will DWA Melody Werner MD PGY-4 08/19/17 FITTER HAND Service Pager: [phone] * Kristy Deal RN - 08/19/2017 11:22 AM EDT Lunch coverage at this time. Pt c/o nausea and having apnea. CPAP currently being checked by [facility] will place on patient when nausea subsides. [...] Melody Lindo - 08/19/2017 6:38 AM EDT Budget Assistant Inpatient Admission Interval Note I have reviewed [...] -- Proceed to OR for planned procedure. Meloyd Lindo MD, PGY1 08/19/2017 Associated attestation - [...] Outcome: Ongoing (Interventions Implemented as Appropriate) 08/19/17 [id number] Interdisciplinary Rounds/Family Conf Participants family;nursing;physician * Op Note - Melisa Wilkerson MD - 08/19/2017 11:26 AM EDT Operative Note ?? Patient Name: Nikia Denton : [id number] MR#: [id number] ?? Case Date: 08/19/2017 ?? Surgeon: Surgeon(s) [...] in the dorsal lithotomy position in yellow [facility] stirrups.She was prepped and draped in [...] Operative Note Patient Name: Nikia Denton : [id number] MR#: [id number] Case Date: 08/19/2017 Surgeon: Surgeon(s) and Role: [...] POCT GLUCOSE Routine 08/19/2017 6:26 AM EDT DETECTIVE LIEUTENANT SCAN 08/19/2017 12:00 AM EDT documented in this encounter Results * POCT Glucose (08/20/2017 7:18 AM EDT) Glucose, POC 113 65 - 199 mg/dL [facility] Comment: Supplemental ranges: <140 mg/dL before meals <180 mg/dL all other times of the day Blood specimen (specimen) 08/20/2017 7:18 AM EDT 08/20/2017 7:18 AM EDT Kody Toth MD POINT OF CARE TEST Melonie QUIÑONES [facility] [place] [address] * POCT Glucose (08/20/2017 3:48 AM EDT) Glucose, POC 116 65 - 199 mg/dL [facility] Comment: Supplemental ranges: <140 mg/dL before meals <180 mg/dL all other times of the day Blood specimen (specimen) 08/20/2017 3:48 AM EDT 08/20/2017 3:48 AM EDT Kody Toth MD POINT OF CARE TEST O NURIA [facility] [place] [address] * POCT Glucose (08/19/2017 11:52 PM EDT) Glucose, POC 117 65 - 199 mg/dL [facility] Comment: Supplemental ranges: <140 mg/dL before meals <180 mg/dL all other times of the day Blood specimen (specimen) 08/19/2017 11:52 PM EDT 08/19/2017 11:52 PM EDT Kody Toth MD POINT OF CARE TEST O NURIA Performing Organization Address [facility] Co de Phone Number [facility] [place] [address] * POCT Glucose (08/19/2017 8:10 PM EDT) Glucose, POC 147 65 - 199 mg/dL [facility] Comment: Supplemental ranges: <140 mg/dL before meals <180 mg/dL all other times of the day Blood specimen (specimen) 08/19/2017 8:10 PM EDT 08/19/2017 8:10 PM EDT Kody Toth MD POINT OF CARE TEST O NURIA Performing Organization Address [facility] Co de Phone Number [facility] [place] [address] * POCT Glucose (08/19/2017 3:40 PM EDT) Glucose, POC 139 65 - 199 mg/dL [facility] Comment: Supplemental ranges: <140 mg/dL before meals <180 mg/dL all other times of the day Blood specimen (specimen) 08/19/2017 3:40 PM EDT 08/19/2017 3:40 PM EDT Kody Toth MD POINT OF CARE TEST O RDERAJESSENIA Performing Organization Address [facility] Co de Phone Number [facility] [place] [address] * Surgical Pathology Report (08/19/2017 8:59 AM EDT) Final Diagnosis [id number] ? Location: [facility]; 16; A The signing pathologist has (i) [...] Shruthi Orozco Verified: ??08/22/2017 ?Pathologist Performed at: ??-[facility] [place], [place], [place] CLINICAL INFORMATION Specimen Submitted: A - [...] nodules. (R8) nsm 08/22/2017 10:10 AM EDT [facility] Uterine Corpus 08/19/2017 8: 59 AM EDT 08/19/2017 8:59 AM EDT Kody Toth MD PATHOLOGY/CYTOLOGY O RDALVERTO Performing Organization Address City/[facility] Co de Phone Number [facility] [place] [address] * Specimen to Pathology (08/19/2017 8:59 AM EDT) AP Specimen 08/19/2017 8:59 AM EDT 08/19/2017 8:59 AM EDT Narrative [facility] - 08/19/2017 8:59 AM EDT Specimen requisition ordered. ??Separate Pathology report to follow Kody Toth MD PATHOLOGY/CYTOLOGY O NURIA Performing Organization Address [facility] Co de Phone Number [facility] [place] [address] * POCT urine (08/19/2017 7:21 AM EDT) POC Urine HCG Negative Negative - Negative POC Control Internal Controls Acceptable Urine specimen (specimen) 08/19/2017 7:21 AM EDT Kody Toth MD POINT OF CARE TEST O RDERAJESSENIA * POCT Glucose (08/19/2017 6:26 AM EDT) Glucose, POC 136 65 - 199 mg/dL [facility] Comment: Supplemental ranges: <140 mg/dL before meals <180 mg/dL all other times of the day Blood specimen (specimen) 08/19/2017 6:26 AM EDT 08/19/2017 6:26 AM EDT Kody Toth MD POINT OF CARE TEST O NURIA Performing Organization Address [facility] Co de Phone Number [facility] [place] [address] * SCAN DOC: DETECTIVE LIEUTENANT (08/19/2017 12:00 AM EDT) Anatomical Region Laterality [...] Routine documented in this encounter Care Teams Director Of Strategic Marketing Relationship Specialty Start Date End Date Moise Lala MD PCP - General Family Medicine 06/26/17 02/15/24 documented as of this encounter
--- OUTSIDE RECORDS SUMMARY | 2024-06-23 16:25 | XMS_ITS | Encounter Summary ---
Author Organization [place] [address] Care Team Providers Care Ribbon Inker Name Role Phone Moise Lala MD Primary Care Provider [phone] Reason for Visit * Reason Comments Pre-op Exam Encounter Details Date Type Department Care Team (Late st Contact Info) Description 08/08/2017 3:30 PM EDT Office Visit Obstetrics [place] [address] Noreen Dawsno MD [facility] [place] [address] Preop testing Social History Tobacco Use Types [...] obtained per her PCP Dr. Lala at [facility] on visit 08/07/2017. 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 The patient did sign the [facility] acute narcotic consent form in anticipation of [...] EDT) Glucose 101 65 - 199 mg/dL [facility] Comment:Diabetes: >=200 mg/d L plus symptoms Blood Urea Nitrogen 16 8 - 18 mg/dL [facility] Creatinine 0.82 0.70 - 1.20 mg/dL [facility] Sodium 137 135 - 145 mmol/L [facility] Potassium 4.0 3.5 - 5.0 mmol/L [facility] Comment: Please note: ??Patients with WBC >100,000 may have falsely elevated Potassium levels. ??For accurate Potassium quantification in these patients send serum separator tube (gold top) for subsequent determinations. ??Contact the Clinical Chemistry Laboratory if there are any questions. Chloride 98 98 - 107 mmol/L [facility] Carbon Dioxide 27 22 - 31 mmol/L [facility] Anion Gap 12 5 - 15 mmol/L [facility] Calcium 9.3 8.5 - 10.5 mg/dL [facility] Protein, Total 7.3 6.1 - 8.0 gm/dL [facility] Albumin 4.3 3.2 - 5.2 gm/dL [facility] Aspartate Aminotransferase 8 0 - 30 unit/L [facility] Alanine Aminotransferase 19 0 - 30 unit/L [facility] Alkaline Phosphatase 104 40 - 104 unit/L [facility] Bilirubin, Total 0.2 0.2 - 1.3 mg/dL [facility] Est Glomerular Filtration Rate >60 >=60 [facility] Comment: The reported eGFR should be multiplied by 1.2 for patients. The MDRD is not an appropriate measure of renal function for patients with body mass extremes or in patients with acute kidney failure. http://[employer]/DHnkdep http://[employer]/DHMCnkf Blood specimen (specimen) 08/08/2017 5:59 PM EDT 08/08/2017 6:03 PM EDT Narrative Resulting Agency Comment Spec In Lab Kody Toth MD CHEMISTRY ORDERABLES [facility] [place] [address] * EKG 12 Lead (08/08/2017 5:38 PM EDT) Ventricular rate 81 BPM MUSE SYSTEM Atrial Rate 81 BPM MUSE SYSTEM P-R Interval 164 ms MUSE SYSTEM QRS Duration 162 ms MUSE SYSTEM Q-T Interval 454 ms MUSE SYSTEM QTC Calculated (Bezet) 527 ms MUSE SYSTEM Calculated P [place] 50 degrees MUSE SYSTEM Calculated R [place] 7 degrees MUSE SYSTEM Calculated T [place] 121 degrees MUSE SYSTEM INTERPRETATION Normal sinus [...] unspecified documented in this encounter Care Teams Ribbon Inker Relationship Specialty Start Date End Date Moise Lala MD PCP - General Family Medicine 06/26/17 02/15/24 documented as of this encounter
--- OUTSIDE RECORDS SUMMARY | 2024-06-23 16:25 | XMS_ITS | Encounter Summary ---
[place] [address] Care Team Providers Care Facial Operator Name Role Phone Moise Lala MD Primary Care Provider [phone] Encounter Details Date Type Department Care Team (Latest Contact Info) Description 08/08/2017 5:55 PM EDT Laboratory Appointment Lab [address] [place] [address] Preop testing Social History Tobacco [...] PM EDT) ABORH Recheck Order Order Placed [facility] ABORH Type Recheck Complete [facility] Blood specimen (specimen) 08/08/2017 5:59 PM EDT 08/08/2017 6:04 PM EDT Narrative Resulting Agency Comment Spec In Lab Kody Toth MD BLOOD BANK LAB ORDER TIANA Performing Organization Address City/[facility]/ZIP Co de Phone Number [facility] [place] [address] * Antibody screen (08/08/2017 5:59 PM EDT) Ab Screen Interp Negative [facility] Expires at [id number] on: 08/22/2017 [facility] Blood specimen (specimen) 08/08/2017 5:59 PM EDT 08/08/2017 6:04 PM EDT Narrative Resulting Agency Comment Spec In Lab Kody Toth MD BLOOD BANK LAB ORDER TIANA [facility] [place] [address] * ABO/Rh Typing (08/08/2017 5:59 PM EDT) ABORH Type A Neg [facility] Blood specimen (specimen) 08/08/2017 5:59 PM EDT 08/08/2017 6:04 PM EDT Narrative Resulting Agency Comment Spec In Lab Kody Toth MD BLOOD BANK LAB ORDER TIANA Performing Organization Address City/[facility]/ZIP Co de Phone Number [facility] [place] [address] * (ABNORMAL) Differential, Automated (08/08/2017 5:59 PM EDT) Neutrophil % 53.8 % [facility] Neutrophil Absolute 5.47 1.70 - 6.10 x10(3)/ L [facility] Lymph % 36.1 % [facility] Lymphocytes Abs 3.7(H) 0.9 - 3.2 x10(3)/[facility] Monocyte % 7.9 % [facility] Monocyte Abs 0.8 0.3 - 0.9 x10(3)/[facility] LAB[facility] Eos % 1.1 % [facility] Eosinophils Abs 0.1 0.0 - 0.4 x10(3)/[facility] Basophil % 0.7 % [facility] Baso Absolute 0.1 0.0 - 0.1 x10(3)/[facility] Immature Gran % 0.40 % [facility] Comment: Immature granulocytes(IG's)percentage and absolute count will include metamyelocytes, myelocytes, and promyelocytes. Blood smears from CBCs yielding IG's will be scanned manually for concordance. If this scan disagrees with the automated IG or if promyelocytes are noted, a manual differential will be performed. Immature Gran Absolute 0.04 0.00 - 0.04 x10(3)/ L [facility] Blood specimen (specimen) 08/08/2017 5:59 PM EDT 08/08/2017 6:03 PM EDT Narrative Resulting Agency Comment Spec In Lab Kody Toth MD HEMATOLOGY ORDERABLE S Performing Organization Address City/[facility]/ZIP Co de Phone Number [facility] [place] [address] * (ABNORMAL) Hemogram (08/08/2017 5:59 PM EDT) White Blood Cell 10.2(H) 4.0 - 9.5 x10(3)/mc L [facility] Red Blood Cell 4.29 4.00 - 5.21 x10(6)/mc L [facility] Hemoglobin 12.3 11.7 - 15.5 gm/dL [facility] Hematocrit 37.4 35.7 - 45.8 % [facility] Mean Cell Volume 87.2 82.6 - 94.4 fL [facility] Mean Cell Hemoglobin 28.7 27.1 - 32.0 pg [facility] Mean Cell Hemoglobin Concentration 32.9 31.7 - 35.0 gm/dL [facility] Platelet 337 145 - 357 x10(3)/[facility]ORY RDW Standard Deviation 44.1 37.0 - 46.0 [facility] RDW coefficient of variation 14.0 11.5 - 14.1 % [facility] Mean Platelet Volume 9.7 7.6 - 12.9 fL [facility] NRBC% auto 0.0 % [facility] NRBC Absolute 0.000 0.000 - 0.000 x10(3)/[facility] Blood specimen (specimen) 08/08/2017 5:59 PM EDT 08/08/2017 6:03 PM EDT Narrative Resulting Agency Comment Spec In Lab Kody Toth MD HEMATOLOGY ORDERABLE S [facility] [place] [address] * Comprehensive metabolic panel (non-fasting) (08/08/2017 5:59 PM EDT) Glucose 101 65 - 199 mg/dL [facility] Comment:Diabetes: >=200 mg/d L plus symptoms Blood Urea Nitrogen 16 8 - 18 mg/dL [facility] Creatinine 0.82 0.70 - 1.20 mg/dL [facility] Sodium 137 135 - 145 mmol/L [facility] Potassium 4.0 3.5 - 5.0 mmol/L [facility] Comment: Please note: ??Patients with WBC >100,000 may have falsely elevated Potassium levels. ??For accurate Potassium quantification in these patients send serum separator tube (gold top) for subsequent determinations. ??Contact the Clinical Chemistry Laboratory if there are any questions. Chloride 98 98 - 107 mmol/L [facility] Carbon Dioxide 27 22 - 31 mmol/L [facility] Anion Gap 12 5 - 15 mmol/L [facility] Calcium 9.3 8.5 - 10.5 mg/dL [facility] Protein, Total 7.3 6.1 - 8.0 gm/dL [facility] Albumin 4.3 3.2 - 5.2 gm/dL [facility] Aspartate Aminotransferase 8 0 - 30 unit/L [facility] Alanine Aminotransferase 19 0 - 30 unit/L [facility] Alkaline Phosphatase 104 40 - 104 unit/L [facility] Bilirubin, Total 0.2 0.2 - 1.3 mg/dL [facility] Est Glomerular Filtration Rate >60 >=60 [facility] Comment: The reported eGFR should be multiplied by 1.2 for patients. The MDRD is not an appropriate measure of renal function for patients with body mass extremes or in patients with acute kidney failure. http://[employer].Quat-E/DHnkdep http://[employer].Quat-E/DHMCnkf Blood specimen (specimen) 08/08/2017 5:59 PM EDT 08/08/2017 6:03 PM EDT Narrative Resulting Agency Comment Spec In Lab Kody Toth MD CHEMISTRY ORDERABLES [facility] [place] [address] documented in this encounter Visit Diagnoses Diagnosis Preop testing Preoperative examination, unspecified documented in this encounter Care Teams Facial Operator Relationship Specialty Start Date End Date Moise Lala MD PCP - General Family Medicine 06/26/17 02/15/24 documented as of this encounter
--- OUTSIDE RECORDS SUMMARY | 2024-06-23 16:25 | XMS_ITS | Encounter Summary ---
[place] [address] Care Team Providers Care Powder Truck Driver Name Role Phone Moise Lala MD Primary Care Provider [phone] Reason for Visit * Auth/Cert Specialty Diagnoses / Procedures Referred By Contluda t Referred To Contact Diagnoses Morbid (severe) obesity due to excess calories Nicotine dependence, unspecified, uncomplicated Abnormal uterine bleeding (AUB) perimenopausal AUB Procedures PRO LAPAROSCOPY W TOT HYSTERECT UTERUS 250 GRAM OR LESS LAPAROSCOPY, HYSTERECTOMY, UTERUS<250GMS (WRVU 13.36) Referral ID Status Reason Start Date Expiration Date Visits Re quested Visits Authorized [id number] 1 1 Encounter Details Date Type Department Care Team (Late st Contact Info) Description 08/19/2017 7:30 AM EDT - 08/19/2017 10:45 AM EDT Surgery [place] [id number] Kody Toth MD LAPAROSCOPY, TOTAL HYST, UTERUS<250GMS, [...] Nikia Denton Patient Age: 51 y.o. Language: Italian Race: White Ethnicity: Not nor Admit date: 08/19/2017 Discharge date and time: 08/20/17 8:59 AM Attending Physician: Kody Toth MD Discharge Physician: Kody Toth MD Follow-up Recommendations for Providers: -- 4-6 weeks for postoperative visit -- Final surgical pathology Inpatient Provider Contact Information: [facility] TALENT DEVELOPMENT SPECIALIST Department, Discharge Diagnoses (Hospital Problems) and Secondary [...] at Discharge: Patient Instructions PATIENT DISCHARGE INSTRUCTIONS [facility] TALENT DEVELOPMENT SPECIALIST Department: Follow Up Appointment: --Postoperative visit in [...] None Provider Contact Information: Moise Lala MD [phone] documented in this encounter Discharge Instructions * Patient Instructions* Melody Lindo - 08/19/2017 10:53 AM EDT Images from the original note were not included. PATIENT DISCHARGE INSTRUCTIONS [facility] TALENT DEVELOPMENT SPECIALIST Department: Follow Up Appointment: --Postoperative visit in [...] home pending voiding trial. Please see s [facility]-based assessment below. Neuro/Pain Control: History [...] Dr. Toth. Melody Lindo MD PGY-1 08/20/17 OTOLARYNGOLOGY PHYSICIAN Service Pager: [phone] Associated attestation - Kody Toth MD - [...] Will DWA Melody Werner MD PGY-4 08/19/17 OTOLARYNGOLOGY PHYSICIAN Service Pager: [phone] * Kristy Deal RN - 08/19/2017 11:22 AM EDT Lunch coverage at this time. Pt c/o nausea and having apnea. CPAP currently being checked by community [facility] will place on patient when nausea [...] Melody J - 08/19/2017 6:38 AM EDT Teaching Pastor Inpatient Admission Interval Note I have reviewed [...] Outcome: Ongoing (Interventions Implemented as Appropriate) 08/19/17 7348 Interdisciplinary Rounds/Family Conf Participants family;nursing;physician * Op Note - Melisa Wilkerson MD - 08/19/2017 11:26 AM EDT Operative Note ?? Patient Name: Nikia Denton : [id number] MR#: [id number] ?? Case Date: 08/19/2017 ?? Surgeon: Surgeon(s) [...] in the dorsal lithotomy position in yellow [facility] stirrups.She was prepped and draped in [...] instruments removed and 12 mmports closed with Cristofer-Amrilyn using 0-Vicryl x 2. All skin closed [...] Operative Note Patient Name: Nikia Denton : [id number] MR#: [id number] Case Date: 08/19/2017 Surgeon: Surgeon(s) and Role: [...] POCT GLUCOSE Routine 08/19/2017 6:26 AM EDT VEST MAKER SCAN 08/19/2017 12:00 AM EDT documented in this encounter Results * POCT Glucose (08/20/2017 7:18 AM EDT) Glucose, POC 113 65 - 199 mg/dL [facility] Comment: Supplemental ranges: <140 mg/dL before meals <180 mg/dL all other times of the day Blood specimen (specimen) 08/20/2017 7:18 AM EDT 08/20/2017 7:18 AM EDT Kody Toth MD POINT OF CARE TEST Melonie QUIÑONES [facility] [place] [address] * POCT Glucose (08/20/2017 3:48 AM EDT) Glucose, POC 116 65 - 199 mg/dL [facility] Comment: Supplemental ranges: <140 mg/dL before meals <180 mg/dL all other times of the day Blood specimen (specimen) 08/20/2017 3:48 AM EDT 08/20/2017 3:48 AM EDT Kody Toth MD POINT OF CARE TEST O NURIA [facility] [place] [address] * POCT Glucose (08/19/2017 11:52 PM EDT) Glucose, POC 117 65 - 199 mg/dL [facility] Comment: Supplemental ranges: <140 mg/dL before meals <180 mg/dL all other times of the day Blood specimen (specimen) 08/19/2017 11:52 PM EDT 08/19/2017 11:52 PM EDT Kody Toth MD POINT OF CARE TEST O NURIA Performing Organization Address [facility] [[email or web address]] Co de Phone Number [facility] [place] [address] * POCT Glucose (08/19/2017 8:10 PM EDT) Glucose, POC 147 65 - 199 mg/dL [facility] Comment: Supplemental ranges: <140 mg/dL before meals <180 mg/dL all other times of the day Blood specimen (specimen) 08/19/2017 8:10 PM EDT 08/19/2017 8:10 PM EDT Kody Toth MD POINT OF CARE TEST O TYRONEERAJESSENIA Performing Organization Address [facility] [[email or web address]] Co de Phone Number [facility] [place] [address] * POCT Glucose (08/19/2017 3:40 PM EDT) Glucose, POC 139 65 - 199 mg/dL [facility] Comment: Supplemental ranges: <140 mg/dL before meals <180 mg/dL all other times of the day Blood specimen (specimen) 08/19/2017 3:40 PM EDT 08/19/2017 3:40 PM EDT Kody Toth MD POINT OF CARE TEST O RDERAJESSENIA Performing Organization Address [facility] [[email or web address]] Co de Phone Number [facility] [place] [address] * Surgical Pathology Report (08/19/2017 8:59 AM EDT) Final Diagnosis [id number] ? Location: [facility]; 16; A The signing pathologist has [...] Shruthi Orozco Verified: ??08/22/2017 ?Pathologist Performed at: ??-[facility] Dept. of Pathology, [place], [place] CLINICAL INFORMATION Specimen Submitted: A - [...] nodules. (R8) nsm 08/22/2017 10:10 AM EDT [facility] Uterine Corpus 08/19/2017 8: 59 AM EDT 08/19/2017 8:59 AM EDT Kody Toth MD PATHOLOGY/CYTOLOGY O NURIA Performing Organization Address City/[facility] [[email or web address]] Co de Phone Number [facility] [place] [address] * Specimen to Pathology (08/19/2017 8:59 AM EDT) AP Specimen 08/19/2017 8:59 AM EDT 08/19/2017 8:59 AM EDT Narrative [facility] - 08/19/2017 8:59 AM EDT Specimen requisition ordered. ??Separate Pathology report to follow Kody Toth MD PATHOLOGY/CYTOLOGY O NURIA Performing Organization Address [facility] [[email or web address]] Co de Phone Number [facility] [place] [address] * POCT urine (08/19/2017 7:21 AM EDT) POC Urine HCG Negative Negative - Negative POC Control Internal Controls Acceptable Urine specimen (specimen) 08/19/2017 7:21 AM EDT Kody Toth MD POINT OF CARE TEST O RDERAJESSENIA * POCT Glucose (08/19/2017 6:26 AM EDT) Glucose, POC 136 65 - 199 mg/dL [facility] Comment: Supplemental ranges: <140 mg/dL before meals <180 mg/dL all other times of the day Blood specimen (specimen) 08/19/2017 6:26 AM EDT 08/19/2017 6:26 AM EDT Kody Toth MD POINT OF CARE TEST O NURIA Performing Organization Address [facility] [[email or web address]] [place] [address] * SCAN DOC: VEST MAKER (08/19/2017 12:00 AM EDT) Anatomical Region Laterality [...] Routine documented in this encounter Care Teams Powder Truck Driver Relationship Specialty Start Date End Date Moise Lala MD PCP - General Family Medicine 06/26/17 02/15/24 documented as of this encounter
--- OUTSIDE RECORDS SUMMARY | 2024-06-23 16:25 | XMS_ITS | Encounter Summary ---
Author Organization [facility] [place] [address] Care Team Providers Care Works Manager Name Role Phone Moise Lala MD Primary Care Provider [phone] Encounter Details Date Type Department Care Team (Late st Contact Info) Description 09/01/2017 Telephone Obstetrics [place] [address] Melody Lindo MD [facility] DR OBSTETRICS & [place] [address] Social History Tobacco Use Types Packs/Day Years [...] on filedocumented in this encounter Care Teams Works Manager Relationship Specialty Start Date End Date Moise Lala MD PCP - General Family Medicine 06/26/17 02/15/24 documented as of this encounter
--- OUTSIDE RECORDS SUMMARY | 2024-06-23 16:25 | XMS_ITS | Encounter Summary ---
Author Organization [facility] Address One [facility] [place] [address] Care Team Providers Care Strategic Planning Analyst Name Role Phone Moise Lala MD Primary Care Provider [phone] Encounter Details Date Type Department Care Team (Latest Contact Info) Description 08/08/2017 6:08 PM EDT - 08/08/2017 11:59 PM EDT Hospital Encounter XRay at [address] [place] [phone] Kody Toth MD Preop testing Discharge Disposition: [...] unspecified documented in this encounter Care Teams Strategic Planning Analyst Relationship Specialty Start Date End Date Moise Lala MD PCP - General Family Medicine 06/26/17 02/15/24 documented as of this encounter
--- OUTSIDE RECORDS SUMMARY | 2024-06-23 16:25 | XMS_ITS | Encounter Summary ---
Author Organization [facility] [place] [address] Care Team Providers Care Goods Layer Name Role Phone Moise Lala MD Primary Care Provider [phone] Reason for Visit * Reason Onset Date Comments Disability Paperwork 09/24/2017 Encounter Details Date Type Department Care Team (Late st Contact Info) Description 09/24/2017 Telephone Obstetrics [place] [address] Naty Lovelace, RN Disability Paperwork [...] me by Dr. Lindo) and return to motion and time study teacher September 30, [address] Toth, to be faxed to insurance company. Also requests letter for work reflecting the same to be faxed to [phone] * Telephone Encounter - Naty Lovelace RN [...] on filedocumented in this encounter Care Teams Goods Layer Relationship Specialty Start Date End Date Moise Lala MD PCP - General Family Medicine 06/26/17 02/15/24 documented as of this encounter
--- OUTSIDE RECORDS SUMMARY | 2024-06-23 16:25 | XMS_ITS | Encounter Summary ---
[place] [address] Care Team Providers Care Airway Controller Name Role Phone Moise Lala MD Primary Care Provider [phone] Reason for Visit * Reason Onset Date Comments Vaginal Bleeding 08/01/2017 Encounter Details Date Type Department Care Team (Late st Contact Info) Description 08/01/2017 Telephone Obstetrics [place] [address] Naty Lovelace RN Vaginal Bleeding [...] on filedocumented in this encounter Care Teams Airway Controller Relationship Specialty Start Date End Date Moise Lala MD PCP - General Family Medicine 06/26/17 02/15/24 documented as of this encounter
--- OUTSIDE RECORDS SUMMARY | 2024-06-23 16:25 | XMS_ITS | Encounter Summary ---
[place] [address] Care Team Providers Care Boat Hoist Operator Name Role Phone Moise Lala MD Primary Care Provider [phone] Reason for Visit * Reason Comments Vaginal Bleeding Encounter Details Date Type Department Care Team (Latest Contact Info) Description 07/01/2017 4:00 PM EST Office Visit Obstetrics [place] [address] Kody Toth MD Abnormal perimenopausal [...] not included. 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 She is a less than one half packper day smoker who is not currently interested in quitting. She is a nondrinker. She and her , [employer], have been for 11 years. MECHANICAL INSULATOR history: As per the HPI. Family history [...] with no adnexal masses. Pelvic ultrasound from [facility] dated June 25, 2017: The uterus [...] care. I will contact her via the [facility] portal with results of her biopsy. documented [...] PM EST 07/01/2017 5:[address] [facility] - 07/01/2017 5:38 PM EST Specimen requisition ordered. ??Separate Pathology report to follow Kody Toth MD PATHOLOGY/CYTOLOGY O RDERABLES [facility] [place] [address] * Surgical Pathology Report (07/01/2017 5:15 PM EST) Final Diagnosis [id number] ? Location: 5L The signing pathologist has (i) examined the relevant preparation(s) for the specimen(s) and (ii) rendered or confirmed the diagnosis(es). . ?Surgical Pathology DIAGNOSIS Endometrial biopsy: ?? 1. Fragments of benign disordered proliferative endometrium ?intermixed with blood clot. ?? 2. No evidence of hyperplasia or endometritis. CR-0 Electronically signed by: ??Gomez BLUE, John Arias Verified: ??07/07/2017 ?Pathologist Performed at: ??-[facility] Dept. of Pathology, [place], [place] CLINICAL INFORMATION Specimen Submitted: A - Endometrial biopsy Clinical History: 51-year-old with AUB Clinical Diagnosis: Same SPECIMEN PROCESSING A - Labeled/Fixative: Patient demographics, formalin. Quantity/Size: Fragments, 2.0 x 1.4 x 0.1 cm. Tissue Description: Tissue fragments and blood clot. Sections/Processi ng: (T1) ??apb 07/07/2017 1:[address] [facility] ENDOMETRIAL STRUCTURE / Unknown 07/01/2017 5:15 PM EST 07/01/2017 5:15 PM EST Kody Toth MD PATHOLOGY/CYTOLOGY O RDALVERTO [facility] [place] [address] documented in this encounter Visit Diagnoses Diagnosis Abnormal perimenopausal bleeding Premenopausal menorrhagia documented in this encounter Care Teams Boat Hoist Operator Relationship Specialty Start Date End Date Moise Lala MD PCP - General Family Medicine 06/26/17 02/15/24 documented as of this encounter
--- OUTSIDE RECORDS SUMMARY | 2024-06-23 16:25 | XMS_ITS | Encounter Summary ---
Author Organization [facility] [place] [address] Care Team Providers Care Electric Meter Tester Name Role Phone Yumiko Barahona MD Primary Care Provider [phone] Reason for Visit * Reason Onset Date Comments Advice Only 12/30/2013 Encounter Details Date Type Department Care Team (Late Contact Info) Description 12/30/2013 [place] [address] Yvan Garner MD [facility] [address] Advice Only Social History Tobacco Use Types Packs/Day Years Used Date Smoking Tobacco: Every Day Cigarettes Sex and Gender Information Value Date Recorded Sex Assigned at Not on file Gender Identity Not on file Sexual Orientation Not on file documented as of this encounter Miscellaneous Notes * Telephone Encounter - Yvan Garner - 12/30/2013 1:38 AM EDT Telephone Note Caller: Dr. Peters ([facility]) Reason: Advice Discussion: 48 yo obese female patient w/ a PMH significant for GERD and Fibromyalgia presents to [facility] with chest pains and SOB with [...] on filedocumented in this encounter Care Teams Electric Meter Tester Relationship Specialty Start Date End Date Yumiko Barahona MD [address] [place] [id number] PCP - General 03/25/11 06/25/17 documented as of this encounter
--- OUTSIDE RECORDS SUMMARY | 2024-06-23 16:25 | XMS_ITS | Encounter Summary ---
Author Organization [facility] Address [facility] [place] [address] Care Team Providers Care Business Division Chair Name Role Phone Moise Lala MD Primary Care Provider [phone] Encounter Details Date Type Department Care Team (Latest Contact Info) Description 03/30/2020 4:56 PM EST - 03/30/2020 11:59 PM EST Hospital [place] [id number] Discharge Disposition: Home Social History Tobacco Use [...] EST) SARS-CoV-2 RNA Not Detected Not Detected [facility] Comment: This result should be interpreted [...] on the instructions for use provided by [employer] and additional guidance provided by CDC and FDA. Testing is performed in the Clinical Genomics and Advanced Technology Laboratory within the Department of Pathology and Laboratory Medicine at [facility], certified under the Clinical Laboratory Improvement Amendments [...] fact sheets at the following FDA website: https://www.fda.gov/medical-devices/bhnxlomzcha-xestyxu-6060-qenmf-91-kshbruwat- use-a zvszoabufftoa-awwykhs-kkzgada/cnjej-brnvuyglheq-husr SARS-CoV-2 RNA Source [facility] LABORATORY Specimen from nose (specimen) Other / Unknown 03/30/2020 10:57 AM EST 03/31/2020 12:48 AM EST Narrative Resulting Agency Comment Spec In Lab Shruthi Mars DO MOLECULAR ORDERABLES Performing Organization Address City/State/[facility] Co de Phone Number [facility] [place] [address] documented in this encounter Visit Diagnoses Not on filedocumented in this encounter Care Teams Business Division Chair Relationship Specialty Start Date End Date Moise Lala MD PCP - General Family Medicine 06/26/17 02/15/24 documented as of this encounter
--- OUTSIDE RECORDS SUMMARY | 2024-06-23 16:25 | XMS_ITS | Encounter Summary ---
Author Organization [facility] [place] [address] Care Team Providers Care Software Developer Mid Level Name Role Phone Moise Lala MD Primary Care Provider [phone] Encounter Details Date Type Department Care Team (Late st Contact Info) Description 10/18/2021 Ancillary Procedure Radiology Library at [facility] [place] [id number] Moise Lala MD [address] [place] [address] [address] [place], [place] [id number] Social History Tobacco Use Types Packs/Day Years [...] MR Abdomen (10/18/2021 12:00 AM EDT) Narrative [facility] - 10/23/2021 10:03 AM EDT This exam is auto-finalizing. It's purpose is for storage only. Moise Lala MD [facility] FILM LIBRARY ORD ERABLES Performing Organization Address City/State/[facility] Co de Phone Number [place], [place] documented in this encounter Visit Diagnoses Not on filedocumented in this encounter Care Teams Software Developer Mid Level Relationship Specialty Start Date End Date Moise Lala MD PCP - General Family Medicine 06/26/17 02/15/24 documented as of this encounter
--- OUTSIDE RECORDS SUMMARY | 2024-06-23 16:25 | XMS_ITS | Encounter Summary ---
Author Organization [facility] [place] [address] Care Team Providers Care Morgue Attendant Name Role Phone Moise Lala MD Primary Care Provider [phone] Encounter Details Date Type Department Care Team (Late st Contact Info) Description 07/21/2017 Orders Only Obstetrics [place] [phone] Kody Toth MD Abnormal uterine bleeding; Morbid [...] hysterectomy. Please call the patient back at [phone] (cell#) with any questions or to schedule [...] hypertension documented in this encounter Care Teams Morgue Attendant Relationship Specialty Start Date End Date Moise Lala MD PCP - General Family Medicine 06/26/17 02/15/24 documented as of this encounter
--- OUTSIDE RECORDS SUMMARY | 2024-06-23 16:25 | XMS_ITS | Encounter Summary ---
[place] [address] Care Team Providers Care Winderman Name Role Phone Moise Lala MD Primary Care Provider Reason for Visit * Auth/Cert Specialty Diagnoses / Procedures Referred By Gael t Referred To Contact Diagnoses Morbid (severe) obesity due to excess calories Nicotine dependence, unspecified, uncomplicated Abnormal uterine bleeding (AUB) perimenopausal AUB Procedures PRO LAPAROSCOPY W TOT HYSTERECT UTERUS 250 GRAM OR LESS LAPAROSCOPY, HYSTERECTOMY, UTERUS<250GMS (WRVU 13.36) Referral ID Status Reason Start Date Expiration Date Visits Re quested Visits Authorized [id number] 1 1 Encounter Details Date Type Department Care Team (Late st Contact Info) Description 08/19/2017 7:29 AM EDT Anesthesia [place] [address] Cathleen Knott MD Cotoi, Daniel, MD Anesthesia [...] IV Line - Single Lumen 08/19/17; 0643; ortk-vmf-mgaqnj catheter system; 20 gauge; Kalee Mason RN; [...] Knott MD - 08/19/2017 11:09 AM EDT [facility] Department of Anesthesiology Post-procedure Note Patient: Nikia [...] All Anesthesia Providers: Anesthesiologist: Cathleen Knott MD ELEMENTARY INSTRUCTIONAL COACH: Zhao Ayala CRNA; Shobha Qureshi CRNA Most Recent Vitals: 08/19/17 1100 BP: 134/79 Pulse: 67 Resp: 8 Temp: SpO2: 99% Pain 0 (08/19/17 1029) Patient Location: PACU/[facility] Level of Consciousness: Awake and Alert Pain Management: Pain Being Addressed PONV: None Cardiovascular Status: At Baseline Respiratory Status: At Baseline Postoperative Fluid Status: Intravascular EUvolemia Possible Anesthetic Complications: NONE apparent at time of evaluation Final Primary Anesthesia Type: General (The anesthetic type performed was the same as planned.) Comments: * Anesthesia Preprocedure Evaluation - Cathleen Knott MD - 08/08/2017 5:15 PM EDT Pre-Anesthesia [...] Smoker, obese, sleep apnea compliant with CPAP ([id number]). 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 Consent signed in PAT. Questions sought and answered. Region - Other Informed Consent: Anesthetic plan and risks discussed with patient. Use of blood products discussed with patient who. Plan discussed with ELEMENTARY INSTRUCTIONAL COACH. PAT Staff Note documented in this encounter [...] mg documented in this encounter Care Teams Winderman Relationship Specialty Start Date End Date Moise Lala MD PCP - General Family Medicine 06/26/17 02/15/24 documented as of this encounter
[2024-06-23 16:33] LABS: Iron 21 ug/dL (50-170); Total Iron Binding Capacity 495 ug/dL (250-450); Transferrin Sat 4 % (15-50)
== END 2024-06-23 16:22 | disposition home or self-care (01) ==
LOC: NCHCN 16:21
PROVIDERS: PCP Student in an Organized Health Care Education/Training Program; Visit Provider Student in an Organized Health Care Education/Training Program
DX: D64.9 Anemia, unspecified (principal); R74.8 Abnormal levels of other serum enzymes
CPT/HCPCS: 80053; 85027; 82607; 82728; 82746; 82977; 83540; 83550

== ENCOUNTER 2024-06-30 12:00 | Outpatient (REF) | payer OTHER, SELFPAY ==
--- OUTSIDE RECORDS SUMMARY | 2024-07-01 12:44 | XMS_ITS | Encounter Summary ---
Author Organization [facility] Address [address] [place] [address] Care Team Providers Care Head Banquet Waitress Name Role Phone Unavailable Primary Care Provider Unavailabl e Encounter Details Date Type Department Care Team (Late st Contact Info) Description 05/08/2006 8:03 EST Hospital Encounter [facility] [address] [place] [address] Irina Jones PA-C [address] [place], [place] [address] Social History Tobacco Use Types Packs/Day Years [...] ORDERABLES Final Resu lt Performing Organization Address City/[facility] Co de Phone Number [facility] [address] [place] [address] * (ABNORMAL) URINALYSIS (05/08/2006 10:54 EST) Color, UA Yellow [facility] Clarity, UA Hazy [facility] Glucose, UA Norm NORM [facility] Bilirubin, UA Neg NEG [facility] Ketones, UA Neg NEG [facility] Specific [place], Urine >1.030(H) 1.005 - 1.02 [facility] [...] ORDERABLES Final Resu lt Performing Organization Address City/State/[facility] Co de Phone Number [facility] [address] [place] [address] * TSH (05/08/2006 10:53 EST) Pathologist [facility] TSH 1.66 0.35 - 5.00 uIU/mL [facility] 05/08/2006 10:5 3 EST 05/08/2006 10:54 EST Irina Jones PA-C CHEMISTRY & BLOOD GAS ORDERABLES Final Result Performing Organization Address [facility] de Phone Number [facility] [address] [place] [address] * SS-B/LA ANTIBODY, IGG, SERUM (05/08/2006 10:53 EST) [facility] Autoantibodies to SS B/La 2.1Unit: U(Note) -- EXPECTED VALUES -- ? (Ref Range) <25.0 ? Test Performed by: ? [facility] Dpt of Lab Med and Pathology ? [address] , [place] [address] ? Crew Leader Gluing: He Kyle III, M.D. ? [facility] 05/08/2006 10:5 3 EST 05/08/2006 10:54 EST us Irina Jones PA-C IMMUNOLOGY AND SEROLOGY ORDERABL ES Final Result [facility] [address] [place] [address] * SS-A/RO ANTIBODY, IGG, SERUM (05/08/2006 10:53 EST) Autoantibodies to SS A/Ro 1.5Unit: U(Note) -- EXPECTED VALUES -- ? (Ref Range) <25.0 ? Test Performed by: ? [facility] of Lab Med and Pathology ? [address] [place] [address] ? Crew Leader Gluing: He Kyle III, M.D. ? [facility] 05/08/2006 10:5 3 EST 05/08/2006 10:54 EST us Irina Jones PA-C IMMUNOLOGY AND SEROLOGY ORDERABL ES Final Result [facility] [address] [place] [address] * (ABNORMAL) COMPREHENSIVE METABOLIC PANEL (05/08/2006 10:53 [...] GAS ORDERABLES Final Result Performing Organization Address [facility] de Phone Number [facility] [address] [place] [address] * CK (05/08/2006 10:53 EST) CK 68 30 - 135 U/L [facility] 05/08/2006 10:5 3 EST 05/08/2006 10:54 EST Irina BINGHAM-C CHEMISTRY & BLOOD GAS ORDERABLES Final Result Performing Organization Address City/[facility]/ZIP Co de Phone Number [facility] [address] [place] [address] * (ABNORMAL) HEMAGRAM AND DIFFERENTIAL (05/08/2006 10:53 EST) Pathologist [facility] WBC 10.17 4.0 - 12.4 K/cmm [facility] [...] ORDERABLES Final Result [facility] [address] [place] [address] * HLA B27 (05/08/2006 10:53 EST) Pathologist [facility] HLA B27 HLA B27 not identified [facility] 05/08/2006 10:5 3 EST 05/08/2006 10:54 EST Irina Jones PA-C TISSUE TYPING ORDERABLES Final R esult [facility] [address] [place] [address] * HIPS PEDRO W/AP PEL 2+ VIEWS (05/08/2006 10:22 EST) Anatomical Region Laterality Modality Other 05/08/2006 10:2 2 EST Narrative 11/26/2008 2:34 EDT HIP PAIN PROBLEM STATEMENT: ??Hip pain. EXAMINATION: ??BILATERAL HIPS WITH AP PELVIS, FIVE VIEWS: 05/08/2006 IMPRESSION: ??Negative. DESCRIPTION: ??An AP view of the pelvis and AP and frog-leg lateral views of each hip. ??Normal. [id number]/josé miguel/[id number] D: ??05/09/2006 15:17 T: ??05/13/2006 07:41 Procedure Note Yosvany Trevino MD - 11/26/2008 HIP PAIN PROBLEM STATEMENT: Hip pain. EXAMINATION: BILATERAL HIPS WITH AP PELVIS, FIVE VIEWS: 05/08/2006 IMPRESSION: Negative. DESCRIPTION: An AP view of the pelvis and AP and frog-leg lateral views of each hip. Normal. [id number]/josé miguel/[id number] Irina Jones PA-C IMG DIAGNOSTIC IMAGING ORDERABLE S Final Result documented in this encounter Visit Diagnoses Not on filedocumented in this encounter Additional Health Concerns Infection Onset Date Last Indicated Resolved Time COVID-19 05/28/2021 05/28/2021 06/17/2021 22:1 5 EST documented as of this encounter
--- OUTSIDE RECORDS SUMMARY | 2024-07-01 12:44 | XMS_ITS | Clinical Summary ---
Author Organization [facility] Address [address] [place] [address] Care Team Providers Care Meter Engineer Name Role Phone Moise Lala MD Primary Care Provider [phone] Social History Tobacco Use Types Packs/Day Years [...] ? POLY DENTON ? Accession #: ? [id number] ? : ? 1965 (Age: 50) ??F ?Collect Date: ? 07/23/2016 ? Location: ? [facility] ? Receive Date: ? 07/24/2016 ? Provider: ALEC MERA [facility] Copy to: ? Final Report SPECIMEN [...] types 16,18,31,33,35, 39,45,51,52,56,58, 59,66, and 68 by biochemistry professor mediated amplification. Comments Document reviewed and electronically signed by: ? System Interface ? Report date: 07/29/2016 By the signature above, the attending physician certifies that he/she has personally conducted a gross and/or microscopic examination of the described specimens and rendered or confirmed the above diagnosis. End of Report [facility] 07/23/2016 07/24/2016 Alec Mera [facility] PATHOLOGY ORDERABLES Final Res ult Performing Organization Address City/State/[facility] Co de Phone Number [facility] [address] [place] [address] from Last 3 Months or Most Recently Relevant to Health [place] [address] [place] [address] [place] [address] [employer] Care Teams Meter Engineer Relationship Specialty Start Date End Date Moise Lala MD [facility] [place] [address] PCP - General 07/17/21
--- OUTSIDE RECORDS SUMMARY | 2024-07-01 12:44 | XMS_ITS | Encounter Summary ---
Author Organization [facility] Address [address] [place] [address] Care Team Providers Care Termite Control Servicer Name Role Phone Moise Lala MD Primary Care Provider [phone] Encounter Details Date Type Department Care Team (Late st Contact Info) Description 08/30/2021 Lab Requisition [facility] Pathology & Laboratory Medicine - [facility] [address] [place] [address] Jen Duran MD [address] [place] [address] [place] [address] Encounter for other general examination Social [...] management options, if applicable. 09/03/2021 18:[address] [facility] Final Diagnosis A. GALLBLADDER, CHOLECYSTECTOMY: - Chronic cholecystitis. - Cholelithiasis. 09/03/2021 18:[address] [facility] Attestation There was significant resident/fellow involvement in the diagnostic evaluation of this case. By the signature below, the attending physician certifies that they have personally conducted a gross and/or microscopic examination of the described specimens and rendered or confirmed the above diagnosis. 09/03/2021 18:[address] [facility] at 1808 Clinical History Cholecystitis 09/03/2021 18:[address] [facility] Gross Description A. Received [...] 3.1 x 1.0 cm in aggregate). Two group sales representative sections and the en face cystic duct margin are submitted in A1. [place]IA [place]([facility]) 08/30/2021 10:35 09/03/2021 18:[address] [facility] Resident/Kee w: Gely Mcleod MD PhD 09/03/2021 18:[address] [facility] Performing Lab [facility] 09/03/2021 18:[address] [facility] Scanned Images 09/03/2021 18:[address] [facility] Tissue ENTIRE GALLBLADDER / Unknown 08/29/2021 14:29 EDT 08/30/2021 8:50 EDT us Jen Duran MD PATHOLOGY ORDERABLES Fin al Result [facility] [address] [place] [address] documented in this encounter Visit Diagnoses Diagnosis Encounter for other general examination documented in this encounter Care Teams Termite Control Servicer Relationship Specialty Start Date End Date Moise Lala MD [address] [place] [address] PCP - General 07/17/21 documented as of this encounter
--- OUTSIDE RECORDS SUMMARY | 2024-07-01 12:44 | XMS_ITS | Encounter Summary ---
Author Organization [facility] Address [address] [place] [address] Care Team Providers Care Warehouse Delivery Manager Name Role Phone Unknown, Provider Primary Care Provider Unava ilable Encounter Details Date Type Department Care Team (Late st Contact Info) Description 05/04/2013 Results Only [facility] ([facility]) [address] [place] [address] Smita Sheth MD [address] [place] [address] [place] [address] Social History Tobacco Use Types Packs/Day Years [...] ? POLY DENTON ? Accession #: ? [id number] ? : ? 1965 (Age: 47) ??F ? Collect Date: ? 05/04/2013 ? Location: ? [facility] ? Receive Date: ? 05/04/2013 ? Provider: SMITA SHETH MD Copy to: OLAF JOHNSON MD ? Final Pathologic Diagnosis: ENDOMETRIUM, BIOPSY: - ??Proliferative endometrium with syncytial metaplasia and stromal breakdown. See comment. - ??Scant fragments of benign endocervical tissue. Comment: Hearings Reporter sections of this case were reviewed at [...] ORDERABLES Final Resu lt [facility] [address] [place] [address] documented in this encounter Visit Diagnoses Not on filedocumented in this encounter Care Teams Warehouse Delivery Manager Relationship Specialty Start Date End Date Unknown, Provider, PCP - General 03/13/12 05/05/13 documented as of this encounter
--- OUTSIDE RECORDS SUMMARY | 2024-07-01 12:44 | XMS_ITS | Encounter Summary ---
Author Organization [facility] Address [address] [place] [address] Care Team Providers Care Pet Food Deboner Name Role Phone Unknown, Provider Primary Care Provider Moise Poole MD Primary Care Provider [phone] Encounter Details Date Type Department Care Team (Late st Contact Info) Description 10/18/2020 Lab Requisition [facility] Pathology & Laboratory Medicine - [facility] [address] [place] [address] Outr Resulting Lab, Provider Social History Tobacco [...] Lyme Ab Negative Negative 10/19/2020 11:09 EDT [facility] Comment:New 3rd generation a ssay in use 10/27/2019 Blood VENOUS BLOOD / Unknown 10/18/2020 11:32 EDT 10/18/2020 20:52 EDT us Provider Outr Resulting Lab IMMUNOLOGY AND SEROL OGY ORDERABLES Final Result [facility] [address] [place] [address] documented in this encounter Visit Diagnoses Not on filedocumented in this encounter Additional Health Concerns Infection Onset Date Last Indicated Resolved Time COVID-19 05/28/2021 05/28/2021 06/17/2021 22:1 5 EST documented as of this encounter Care Teams Pet Food Deboner Relationship Specialty Start Date End Date Unknown, Provider, PCP - General 04/03/20 07/16/21 Moise Lala MD [address] [place] [facility] [address] PCP - General 07/17/21 documented as of this encounter
--- OUTSIDE RECORDS SUMMARY | 2024-07-01 12:44 | XMS_ITS | Encounter Summary ---
Author Organization [facility] Address [address] [place] [address] Care Team Providers Care Aircraft Mechanic Armament Name Role Phone Unavailable Primary Care Provider Unavailabl e Encounter Details Date Type Department Care Team (Late st Contact Info) Description 05/08/2006 Before PRISM Converted Visit (Maple) [facility] conversion [address] [place] [address] Irina Jones PA-C [address] [place], [place] [id number] Social History Tobacco Use Types Packs/Day Years Used Date Smoking Tobacco: Never Assessed Comments Unknown Sex and Gender Information Value Date Recorded Sex Assigned at Not on file Legal Sex Female 18:35 EST Gender Identity Not on file Sexual Orientation Not on file documented as of this encounter Consult Notes * Neel, Conv Senior Data Architect - 05/25/2009 1506 EST DIVISION OF RHEUMATOLOGY [...] anterior chest wall. She was followed at [facility] for 5 years. Her symptoms subsided [...] OTILIA Landrum A - O1 Job ID: [id number] Document ID: [id number] cc: Daniel Gutierrez MD documented in this encounter Plan of Treatment Not on file documented as of this encounter Visit Diagnoses Not on filedocumented in this encounter
--- OUTSIDE RECORDS SUMMARY | 2024-07-01 12:44 | XMS_ITS | Encounter Summary ---
Author Organization [facility] Address [address] [place] [address] Care Team Providers Care Construction Equipment Mechanic Helper Name Role Phone Buster Campos APRN Primary Care Provider [phone] Encounter Details Date Type Department Care Team (Latest Contact Info) Description 06/11/2017 10:37 EST - 06/11/2017 23:59 EST Hospital Encounter [address] [address] Unknown, Provider, MD Discharge Disposition: Home or [...] Code Departure Means Destination Home or Self Snf documented in this encounter Plan of Treatment Not on file documented as of this encounter Visit Diagnoses Not on filedocumented in this encounter Care Teams Construction Equipment Mechanic Helper Relationship Specialty Start Date End Date Buster Campos APRN [address] [place] [address] PCP - General 05/06/13 07/25/19 documented as of this encounter
--- OUTSIDE RECORDS SUMMARY | 2024-07-01 12:44 | XMS_ITS | Encounter Summary ---
Author Organization [facility] Address [address] [place] [address] Care Team Providers Care Tool Smith Name Role Phone Buster Campos APRN Primary Care Provider [phone] Encounter Details Date Type Department Care Team (Late st Contact Info) Description 07/23/2016 Results Only [facility] Adult Primary Care - [address] [address] Alec Mera FNP [address] [place], [place] [id number] Social History Tobacco Use Types Packs/Day Years [...] ? POLY DENTON ? Accession #: ? [id number] ? : ? 1965 (Age: 50) ??F ?Collect Date: ? 07/23/2016 ? Location: ? [facility] ? Receive Date: ? 07/24/2016 ? Provider: ALEC MERA DISTRIBUTION FIELD TECHNICIAN Copy to: ? Final Report SPECIMEN ADEQUACY [...] types 16,18,31,33,35, 39,45,51,52,56,58, 59,66, and 68 by printed circuit boards contact printer mediated amplification. Comments Document reviewed and electronically signed by: ? System Interface ? Report date: 07/29/2016 By the signature above, the attending physician certifies that he/she has personally conducted a gross and/or microscopic examination of the described specimens and rendered or confirmed the above diagnosis. End of Report [facility] 07/23/2016 07/24/2016 us Alec Ede DISTRIBUTION FIELD TECHNICIAN PATHOLOGY ORDERABLES Final Res ult [facility] [address] [place] [address] documented in this encounter Visit Diagnoses Not on filedocumented in this encounter Care Teams Tool Smith Relationship Specialty Start Date End Date Buster Campos APRN [address] [place] [address] PCP - General 05/06/13 07/25/19 documented as of this encounter
--- OUTSIDE RECORDS SUMMARY | 2024-07-01 12:44 | XMS_ITS | Encounter Summary ---
Author Organization [facility] Address [address] [place] [address] Care Team Providers Care Apprentice Instrument Technician Name Role Phone Unavailable Primary Care Provider Unavailabl e Encounter Details Date Type Department Care Team (Late st Contact Info) Description 01/17/2005 Results Only [facility] conversion [address] [place] [address] Laly Ramirez PA-C [address] [place] [address] [place] [address] Social History Tobacco Use Types Packs/Day [...] ? YESSENIA POLY ? Accession #: ? [id number] ? : ? 1965 (Age: 39) ??F ? Collect Date: ? 01/17/2005 ? Location: ? [facility] ? Receive Date: ? 01/18/2005 ? Provider: [...] a variable amount of melanin pigment. ??(Dr. Bacon)/[facility] Document reviewed and electronically signed by: [...] Gross Description: ? Received in formalin labelled [place] and lesion/pubis is a 1.5 x 0.8 [...] Fin al Result [facility] [address] [place] [address] documented in this encounter Visit Diagnoses Not on filedocumented in this encounter
--- OUTSIDE RECORDS SUMMARY | 2024-07-01 12:44 | XMS_ITS | Encounter Summary ---
Author Organization [facility] Address [address] [place] [address] Care Team Providers Care Kidney Puller Name Role Phone Unknown, Provider Primary Care Provider Unava ilable Encounter Details Date Type Department Care Team (Late st Contact Info) Description 03/11/2012 Results Only [facility] [phone] Buster Eduardo, FELTING MACHINE OPERATOR [address] [place] [address] Social History Tobacco Use Types [...] ? POLY DENTON ? Accession #: ? [id number] : ? 1965 (Age: 46) ??F ?Collect Date: ? 03/11/2012 Location: ? [facility] ? Receive Date: ? 03/13/2012 Provider: ?BUSTER EDUARDO PROTOTYPE ENGINEER Copy to: ? Specimen/Source: ?Pap Test, Cervix/Endocervix, [...] [facility] 03/11/2012 03/13/2012 us Buster Eduardo FELTING MACHINE OPERATOR PATHOLOGY ORDERABLES Final Re sult [facility] [address] [place] [address] documented in this encounter Visit Diagnoses Not on filedocumented in this encounter Care Teams Kidney Puller Relationship Specialty Start Date End Date Unknown, Provider, PCP - General 03/13/12 05/05/13 documented as of this encounter
--- OUTSIDE RECORDS SUMMARY | 2024-07-01 12:44 | XMS_ITS | Encounter Summary ---
Author Organization [facility] Address [address] [place] [address] Care Team Providers Care Court Abstractor Name Role Phone Unknown, Provider MD Primary Care Provider Unava ilable Encounter Details Date Type Department Care Team (Late st Contact Info) Description 04/03/2020 Results Only [facility] - Main [address] [phone] Unknown, Provider, Social History Tobacco Use Types [...] (04/03/2020) 04/03/2020 04/04/2020 13: 42 EST Narrative [facility] - 04/05/2020 13:55 EST ----- ------- Name: POLY DENTON ? : [birth year] ?Age/Sex: 54/F ?Unit#: [id number] ? Loc: LAB.POP ? Status: REG REF ?? Reg Date: 04/03/20 ? Pt.Phone Number: ? ----- ------- Specimen: [id number] ? STATUS: SOUT ?Spec Date:04/03/20 ? Physician Copies: ?NONE,NONE ? Tissues: A ?? Endoscopy specimen (RECTAL POLYP) ?ELMA TIRADO ? B ?? Endoscopy specimen (CECUM POLYP X 2) ? EAMON COLON ? C ?? Endoscopy specimen (SIGMOID POLYP X 3) ? CPT: 49629 ?? Units: ??3 ?FINAL DIAGNOSIS ? A. RECTUM, POLYP, BIOPSY: ? - Hyperplastic polyp. ? B. COLON, CECUM, POLYPS X2, BIOPSY: ? - Tubular adenomas. ? C. COLON, SIGMOID, POLYPS X3, BIOPSY; ? - Hyperplastic polyps. ----- ------- ?COMMENT ? [id number] ? GROSS DESCRIPTION ? Received in formalin [...] confirmed the above diagnosis. Test Performed by [facility], [address] [place] [address] Youth Worker: Ginger Pierre MD PHD ----- ------- us Provider Unknown PATHOLOGY ORDERABLES Final R esult [facility] [address] [place] [address] documented in this encounter Visit Diagnoses Not on filedocumented in this encounter Care Teams Court Abstractor Relationship Specialty Start Date End Date Unknown, Provider, PCP - General 04/03/20 07/16/21 documented as of this encounter
--- OUTSIDE RECORDS SUMMARY | 2024-07-01 12:44 | XMS_ITS | Encounter Summary ---
Author Organization [facility] Address [address] [place] [address] Care Team Providers Care Heading Pinner Name Role Phone Buster Campos APRN Primary Care Provider [phone] Encounter Details Date Type Department Care Team (Late st Contact Info) Description 06/11/2017 Results Only [place] [phone] Eamon Lala MD [address] [place], [place] [id number] Social History Tobacco Use Types Packs/Day Years [...] ? POLY DENTON ? Accession #: ? [id number] ? : ? 1965 (Age: 51) ??F [...] (ASCP) 06/12/2017 4:50 PM End of Report [facility] 06/11/2017 16:2 4 EST 06/12/2017 16:24 EST us Eamon Lala MD PATHOLOGY ORDERABLES Final Resul t [facility] [address] [place] [address] documented in this encounter Visit Diagnoses Not on filedocumented in this encounter Care Teams Heading Pinner Relationship Specialty Start Date End Date Buster Campos APRN [address] [place] [phone] PCP - General 05/06/13 07/25/19 documented as of this encounter
--- OUTSIDE RECORDS SUMMARY | 2024-07-01 12:44 | XMS_ITS | Encounter Summary ---
Author Organization [facility] Address [address] [place] [address] Care Team Providers Care Senior Tax Analyst Name Role Phone Unknown, Provider Primary Care Provider Moise Poole MD Primary Care Provider [phone] Encounter Details Date Type Department Care Team (Late st Contact Info) Description 05/28/2021 Lab Requisition [facility] Pathology & Laboratory Medicine - [address] [address] Outr Resulting Lab, Provider Social History Tobacco [...] MICROBIOLOGY - GENER AL ORDERABLES Final Result [facility] [address] [place] [address] * (ABNORMAL) COVID-19 TESTING (05/28/2021 13:40 EST) COVID-19 rt-PCR Result Positive(AA ) Negative 05/29/2021 13:23 EST [facility] Comment: This test [...] terminated or revoked sooner. Performed on the Aunt [employer] Fusion instrument Performing Lab [place] [facility] 05/29/2021 13:23 EST [facility] Swab 05/28/2021 13:4 0 EST 05/28/2021 21:47 EST us Provider Outr Resulting Lab MICROBIOLOGY - GENER AL ORDERABLES Final Result [facility] [address] [place] [address] documented in this encounter Visit Diagnoses Not on filedocumented in this encounter Additional Health Concerns Infection Onset Date Last Indicated Resolved Time COVID-19 05/28/2021 05/28/2021 06/17/2021 22:1 5 EST documented as of this encounter Care Teams Senior Tax Analyst Relationship Specialty Start Date End Date Unknown, Provider, PCP - General 04/03/20 07/16/21 [place] [address] PCP - General 07/17/21 documented as of this encounter
--- OUTSIDE RECORDS SUMMARY | 2024-07-01 12:44 | XMS_ITS | Encounter Summary ---
Author Organization [facility] Address [address] [place] [address] Care Team Providers Care Desktop Support Consultant Name Role Phone Unknown, Provider Primary Care Provider Moise Poole MD Primary Care Provider [phone] Encounter Details Date Type Department Care Team (Late st Contact Info) Description 10/18/2020 Lab Requisition [facility] Pathology & Laboratory Medicine - [facility] [address] [place] [address] Outr Resulting Lab, Provider Social History Tobacco [...] MICROBIOLOGY - GENER AL ORDERABLES Final Result [facility] [address] [place] [address] * COVID-19 TESTING (10/18/2020 11:30 EDT) COVID-19 rt-PCR Result Negative Negative 10/19/2020 13:32 EDT [facility] Comment: This test has [...] developed and its performance characteristics determined by [facility]. It has not been cleared or approved [...] testing. This test is based on the [facility] COVID-19 Emergency Use Authorization (EUA) assay, with minor modification as defined by the FDA Performed on the MBM Solutionso 7 Pro RT-PCR System. Performing Lab [facility] 10/19/2020 13:32 EDT [facility] Swab 10/18/2020 11:3 0 EDT 10/18/2020 20:38 EDT us Provider Outr Resulting Lab MICROBIOLOGY - GENER AL ORDERABLES Final Result [facility] [address] [place] [address] documented in this encounter Visit Diagnoses Not on filedocumented in this encounter Additional Health Concerns Infection Onset Date Last Indicated Resolved Time COVID-19 05/28/2021 05/28/2021 06/17/2021 22:1 5 EST documented as of this encounter Care Teams Desktop Support Consultant Relationship Specialty Start Date End Date Unknown, Provider, PCP - General 04/03/20 07/16/21 Moise Lala MD [facility] [place] [address] PCP - General 07/17/21 documented as of this encounter
--- OUTSIDE RECORDS SUMMARY | 2024-07-01 12:44 | XMS_ITS | Encounter Summary ---
Author Organization [facility] Address [address] [place] [address] Care Team Providers Care Event Av Operator Name Role Phone Unknown, Provider Primary Care Provider Unava ilable Encounter Details Date Type Department Care Team (Latest Contact Info) Description 05/04/2013 14:27 EST - 05/04/2013 23:59 EST Hospital Encounter [address] [address] Unknown, Provider, Discharge Disposition: Home or Self [...] Code Departure Means Destination Home or Self Jail documented in this encounter Plan of Treatment Not on file documented as of this encounter Visit Diagnoses Not on filedocumented in this encounter Care Teams Event Av Operator Relationship Specialty Start Date End Date Unknown, Provider, PCP - General 03/13/12 05/05/13 documented as of this encounter
--- OUTSIDE RECORDS SUMMARY | 2024-07-01 12:44 | XMS_ITS | Encounter Summary ---
Author Organization [facility] Address [address] [place] [address] Care Team Providers Care Maintenance Job Titles Name Role Phone Unavailable Primary Care Provider Unavailabl e Encounter Details Date Type Department Care Team (Late st Contact Info) Description 09/24/[address] [facility] [place] conversion [address] [place] [address] Eamon Fernandez, DMD [address] [place] [address] Social History Tobacco Use Types Packs/Day Years [...] Name: ? YESSENIAPOLY ? Accession #: ? [id number] ? : ? 1965 (Age: 38) ??F [...] Gross Description: ? Received in formalin labelled [place] and right lower lip/vestibule is an unoriented [...] ORDERABLES Final Resu lt [facility] [address] [place] [address] documented in this encounter Visit Diagnoses Not on filedocumented in this encounter
--- OUTSIDE RECORDS SUMMARY | 2024-07-01 12:44 | XMS_ITS | Encounter Summary ---
Author Organization [facility] Address [address] [place] [address] Care Team Providers Care Manager Renewable Energy Name Role Phone Unavailable Primary Care Provider Unavailabl e Encounter Details Date Type Department Care Team (Late st Contact Info) Description 05/08/2006 Before [facility] Converted Visit ([facility]) [facility] conversion [address] [place], [place] [address] Mayela Khoury MD [address] [facility] [address] [place] [address] Social History Tobacco Use Types Packs/Day Years Used Date Smoking Tobacco: Never Assessed Comments Unknown Sex and Gender Information Value Date Recorded Sex Assigned at Not on file Legal Sex Female 18:35 EST Gender Identity Not on file Sexual Orientation Not on file documented as of this encounter Progress Notes * Mayela Khoury MD - 05/22/2009 9000 EST DIVISION OF RHEUMATOLOGY - 05/08/2006 Daniel Gutierrez MD [address] Gutierrez: I had the great pleasure of seeing Ms. Nikia Steele in consultation for you today. I saw her with my physicians chemistry research assistant, Irina Jones, and I confirmed the [...] Khoury MD P - mr Job ID: [id number] Document ID: [id number] cc: MD Irina Fernandez PA documented in this encounter Plan of Treatment Not on file documented as of this encounter Visit Diagnoses Not on filedocumented in this encounter
--- OUTSIDE RECORDS SUMMARY | 2024-07-01 12:44 | XMS_ITS | Encounter Summary ---
Author Organization [facility] Address [address] [place] [address] Care Team Providers Care Religion Teacher Name Role Phone Unknown, Provider Primary Care Provider Moise Poole MD Primary Care Provider [phone] Encounter Details Date Type Department Care Team (Late st Contact Info) Description 10/20/2020 Lab Requisition [facility] Pathology & Laboratory Medicine - [facility] [address] [place] [address] Outr Resulting Lab, Provider Social History Tobacco [...] Lyme Ab Negative Negative 10/23/2020 10:47 EDT [facility] Comment:New 3rd generation a ssay in use 10/27/2019 Blood VENOUS BLOOD / Unknown 10/20/2020 12:39 EDT 10/20/2020 20:46 EDT us Provider Outr Resulting Lab IMMUNOLOGY AND SEROL OGY ORDERABLES Final Result [facility] [address] [place] [address] documented in this encounter Visit Diagnoses Not on filedocumented in this encounter Additional Health Concerns Infection Onset Date Last Indicated Resolved Time COVID-19 05/28/2021 05/28/2021 06/17/2021 22:1 5 EST documented as of this encounter Care Teams Religion Teacher Relationship Specialty Start Date End Date Unknown, Provider, PCP - General 04/03/20 07/16/21 Moise Lala MD [address] [facility] [place] [address] PCP - General 07/17/21 documented as of this encounter
--- OUTSIDE RECORDS SUMMARY | 2024-07-01 12:44 | XMS_ITS | Encounter Summary ---
Author Organization [facility] Address [address] [place] [address] Care Team Providers Care Psychological Assistant Name Role Phone Moise Lala MD Primary Care Provider [phone] Encounter Details Date Type Department Care Team (Late st Contact Info) Description 03/28/2022 Lab Requisition [facility] - Main [address] [address] Twan Orellana MD [address] [place] [phone] Noninfective gastroenteritis and colitis, unspecified; Lower [...] 9:49 [facility] Performing Lab [facility] 03/2022 9:49 [facility] Scanned Images 03/29/2022 9:49 [facility] Tissue ENTIRE RECTUM / Unknown 03/27/2022 7:37 EST 03/28/2022 7:35 EST Tissue specimen (specimen) ENTIRE RECTUM / Unknown 03/27/2022 7:37 EST 03/28/2022 7:36 EST us Twan Orellana MD PATHOLOGY ORDERABLES Final Result [facility] [address] [place] [address] documented in this encounter Visit Diagnoses Diagnosis Noninfective gastroenteritis and colitis, unspecified Lower abdominal pain, unspecified documented in this encounter Care Teams Psychological Assistant Relationship Specialty Start Date End Date Moise Lala MD [address] [place] [address] PCP - General 07/17/21 documented as of this encounter
--- OUTSIDE RECORDS SUMMARY | 2024-07-01 12:44 | XMS_ITS | Referral Summary ---
Author Organization [facility] Address [address] [place] [address] Care Team Providers Care Senior It Recruiter Name Role Phone Moise Lala MD Primary Care Provider [phone] Social History Tobacco Use Types Packs/Day Years [...] ? POLY DENTON ? Accession #: ? [id number] ? : ? 1965 (Age: 50) ??F [...] types 16,18,31,33,35, 39,45,51,52,56,58, 59,66, and 69 by ski patrol director mediated amplification. Comments Document reviewed and electronically signed by: ? System Interface ? Report date: 07/29/2016 By the signature above, the attending physician certifies that he/she has personally conducted a gross and/or microscopic examination of the described specimens and rendered or confirmed the above diagnosis. End of Report [facility] 07/23/2016 07/24/2016 us Alec SEPULVEDA PATHOLOGY ORDERABLES Final Res ult [facility] [address] [place] [address] from Last 3 Months or Most Recently Relevant to Health Maintenance Insurance [employer] [place] [place] [id number] Care Teams Senior It Recruiter Relationship Specialty Start Date End Date Moise Lala MD [address] [place] [address] PCP - General 07/17/21
--- OUTSIDE RECORDS SUMMARY | 2024-07-01 12:44 | XMS_ITS | Encounter Summary ---
Author Organization [facility] Address [address] [place] [address] Care Team Providers Care Business Manager College [employer] Name Role Phone Moise Lala MD Primary Care Provider Encounter Details Date Type Department Care Team (Late st Contact Info) Description 12/28/2021 Lab Requisition [facility] - Main [address] [phone] Twan Orellana MD [address] [place] [phone] Nausea with vomiting, unspecified; Right upper [...] explore management options, if applicable. 12/31/2021 11:36 [facility] Final Diagnosis A. DUODENUM, BIOPSY: - No diagnostic abnormality. - No features of sprue present. B. DUODENAL BULB, BIOPSY: - No diagnostic abnormality. - No features of sprue present. C. GASTRIC ANTRUM, BIOPSY: - Reactive gastropathy. - Negative for intestinal metaplasia and dysplasia. D. GASTRIC BODY, BIOPSY: - No diagnostic abnormality. 12/31/2021 11:36 [facility] Attestation By the signature below, the attending physician certifies that they have 1) personally conducted a gross and/or microscopic examination of the described specimen(s), and/or personally interpreted the results of laboratory testing of the described specimen(s), and 2) personally rendered or confirmed the above diagnosis. 12/31/2021 11:36 [facility] at 1136 Clinical History RUQ pain, epigastric pain, N/V GERD, diarrhea, 12/31/2021 11:36 [facility] Gross Description A. The specimen is [...] Marley Meeks 12/28/2021 14:42 12/31/2021 11:36 EDT [facility] Performing Lab [facility] 12/31/2021 11:36 EDT [facility] Scanned Images 12/31/2021 11:36 EDT [facility] Tissue DUODENAL STRUCTURE / [...] Twan Orellana MD PATHOLOGY ORDERABLES Final Result [facility] [address] [place] [address] documented in this encounter Visit Diagnoses Diagnosis Nausea with vomiting, unspecified Right upper quadrant pain Abdominal pain, right upper quadrant Epigastric pain Abdominal pain, epigastric documented in this encounter Care Teams Business Manager College [employer] Relationship Specialty Start Date End Date Moise Lala MD [address] [place] [address] PCP - General 07/17/21 documented as of this encounter
--- OUTSIDE RECORDS SUMMARY | 2024-07-01 12:44 | XMS_ITS | Encounter Summary ---
Author Organization [facility] Address [address] [place] [address] Care Team Providers Care Petal Shaper Hand Name Role Phone Moise Lala MD Primary Care Provider Encounter Details Date Type Department Care Team (Late st Contact Info) Description 07/11/2022 Lab Requisition [facility] Pathology & Laboratory Medicine - [facility] [address] [place] [address] Moise Lala MD [address] [place] [address] [place] [address] Encounter for other general examination [...] management options, if applicable. 07/15/2022 15:31 EST [facility] Final Diagnosis A. SKIN OF BUTTOCK, LEFT, EXCISION: - Follicular cyst, infundibular type. 07/15/2022 15:31 [facility] Attestation By the signature below, the attending physician certifies that they have 1) personally conducted a gross and/or microscopic examination of the described specimen(s), and/or personally interpreted the results of laboratory testing of the described specimen(s), and 2) personally rendered or confirmed the above diagnosis. 07/15/2022 15:31 [facility] at 1531 Microscopic Description There is a dermal cyst that is lined by stratified squamous epithelium that matures through a granular layer. The cyst is filled with laminated orthokeratin. 07/15/2022 15:31 [facility] Clinical History Slightly purple growing dermal nodule, no head, cyst not obviously sebaceous; punctured after removal 07/15/2022 15:31 [facility] Gross Description A. Received in [...] wall thickness less than 0.1 cm. Two renewals representative sections are submitted in A1. OTILIA SAUER(ASCP) 07/12/2022 8:43 07/15/2022 15:31 [facility] Performing Lab [facility] 07/15/2022 15:31 [facility] Scanned Images 07/15/2022 15:31 [facility] Tissue TISSUE SPECIMEN FROM SKIN / Unknown 07/10/2022 15:25 EST 07/11/2022 17:04 EST Moise Lala MD PATHOLOGY ORDERABLES Final Resul t [facility] [address] [place] [address] documented in this encounter Visit Diagnoses Diagnosis Encounter for other general examination documented in this encounter Care Teams Petal Shaper Hand Relationship Specialty Start Date End Date Moise Lala MD [address] [place] [address] PCP - General 07/17/21 documented as of this encounter
--- OUTSIDE RECORDS SUMMARY | 2024-07-01 12:44 | XMS_ITS | Encounter Summary ---
Author Organization [facility] Address [address] [place] [address] Care Team Providers Care Gamb Cutter Name Role Phone Moise Lala MD Primary Care Provider [phone] Encounter Details Date Type Department Care Team (Late st Contact Info) Description 09/19/2022 Lab Requisition [facility] Pathology & Laboratory Medicine - [facility] [address] [place], [place] [id number] Outr Resulting Lab, Provider Social History Tobacco [...] IGA <1.2 <4.0 U/mL 09/23/2022 13:16 EDT [facility] Comment: A negative result may be due to IgA deficiency and does not rule out celiac disease. ? Negative: ??<4.0 U/mL ? Weak Positive: ??4.0 - 10.0 U/mL ? Positive: ??>10.0 U/mL Results were obtained with the [employer] QUANTA Lite R h-tTG IgA JAME assay on the Pro Player Connect DSX. IgA 233 85 - 499 mg/dL 09/23/2022 13:16 EDT [facility] Celiac Disease Interpretation Negative Serology. Celiac disease unlikely. Approximately 10% of patients with celiac disease are seronegative. Patients who are already adhering to a gluten-free diet may also be seronegative. If celiac disease is highly clinically suspected, referral to gastroenterology for additional evaluation is recommended. 09/23/2022 13:16 EDT [facility] Blood VENOUS BLOOD / Unknown 09/18/2022 9:45 EDT 09/19/2022 17:24 EDT us Provider Outr Resulting Lab IMMUNOLOGY AND SEROL OGY ORDERABLES Final Result Performing Organization Address City/State/[facility] Co de Phone Number [facility] [address] [place] [address] documented in this encounter Visit Diagnoses Not on filedocumented in this encounter Care Teams Gamb Cutter Relationship Specialty Start Date End Date Moise Lala MD [facility] [place] [address] PCP - General 07/17/21 documented as of this encounter
--- OUTSIDE RECORDS SUMMARY | 2024-07-01 12:45 | XMS_ITS | Encounter Summary ---
Author [facility] [place] [address] Care Team Providers Care Cost Accountant Name Role Phone Twan Pruitt Primary Care [...] on filedocumented in this encounter Care Teams Cost Accountant Relationship Specialty Start Date End Date [place] [address] PCP - General Internal Medicine 02/16/24 documented as of this encounter
--- OUTSIDE RECORDS SUMMARY | 2024-07-01 12:45 | XMS_ITS | Encounter Summary ---
[place] [address] Care Team Providers Care Utility Worker Name Role Phone Moise Lala MD Primary Care Provider [phone] Encounter Details Date Type Department Care Team [...] on filedocumented in this encounter Care Teams Utility Worker Relationship Specialty Start Date End Date Moise Lala MD PCP - General Family Medicine 06/26/17 02/15/24 documented as of this encounter
--- OUTSIDE RECORDS SUMMARY | 2024-07-01 12:45 | XMS_ITS | Encounter Summary ---
[place] [address] Care Team Providers Care Interface Engineer Name Role Phone Moise Lala MD Primary Care Provider [phone] Reason for Referral * Diagnostic Test (Routine) - Closed Specialty Diagnoses / Procedures Referred By Contac t Referred To Contact Radiology Diagnoses Diarrhea, unspecified type Elevated gastrin level Procedures NM PET CT Neuroendocrine (DETECTNET) Ana Maria Zacarias MD [facility] [place] [address] [place] [address] Referral ID Status Reason Start Date Expiration Date V isits Requested Visits Authorized [id number] Closed Specialty Service Requested 04/11/2023 10/09/2024 1 1 Reason for Visit * Diagnostic Test (Routine) - Closed Specialty Diagnoses / Procedures Referred By Contac t Referred To Contact Radiology Diagnoses Diarrhea, unspecified type Elevated gastrin level Procedures NM PET CT Neuroendocrine (DETECTNET) Ana Maria Zacarias MD [facility] [place] [address] [place] [address] Referral ID Status Reason Start Date Expiration Date V isits Requested Visits Authorized [id number] Closed Specialty Service Requested 04/11/2023 10/09/2024 1 1 Encounter Details Date Type Department Care Team (Latest Contact Info) Description 05/09/2023 11:24 AM EST Hospital Encounter [place] [address] Ana Maria Zacarias MD [facility] [place] [address] Diarrhea, unspecified type; Elevated gastrin level Discharge [...] have questions please contact the health care manager that requested your imaging first. ? Narrative [...] who have questions please contactthe health care manager that requested your imaging first. Ana Maria Zacarias MD IMG PET ORDERABLES documented in this encounter Visit Diagnoses Diagnosis Diarrhea, unspecified type Elevated gastrin level Abnormality of secretion of gastrin documented in this encounter Care Teams Interface Engineer Relationship Specialty Start Date End Date Moise Lala MD PCP - General Family Medicine 06/26/17 02/15/24 documented as of this encounter
--- OUTSIDE RECORDS SUMMARY | 2024-07-01 12:45 | XMS_ITS | Encounter Summary ---
[place] [address] Care Team Providers Care Fingerprint Expert Name Role Phone Moise Lala MD Primary Care Provider [phone] Encounter Details Date Type Department Care Team (Late st Contact Info) Description 06/18/2023 Telephone [place] [phone] Kami Senior Social History Tobacco Use Types [...] - 06/18/2023 11:31 AM EST Nikia Denton [id number] Diagnosis/Indication: elevated gastrin, net spot with diffuse [...] procedure? No You must have a responsible republican who will drive you to your procedure, stay on campus for the entire duration of your procedure, and drive you home from your procedure. Who will likely be your funeral limousine driver for the procedure? *Please Verify the [...] on filedocumented in this encounter Care Teams Fingerprint Expert Relationship Specialty Start Date End Date Moise Lala MD PCP - General Family Medicine 06/26/17 02/15/24 documented as of this encounter
--- OUTSIDE RECORDS SUMMARY | 2024-07-01 12:45 | XMS_ITS | Encounter Summary ---
[place] [address] Care Team Providers Care Cattle Rancher Name Role Phone Twan Pruitt Primary Care Provider + Reason for Visit * Reason Comments Chest Pain Encounter Details Date Type Department Care Team (Late st Contact Info) Description 03/02/2024 1:09 PM EDT - 03/02/2024 1:14 PM EDT [place] [phone] Discharge Disposition: Home Social History Tobacco Use [...] Procedure Abnormality Status --------- ------ Troponin-T, High Sensiti...[[id number]] Normal Final result Troponin-T, High Sensiti...[[id number]] Please view results for these tests on [...] have questions please contact the health career development manager that requested your imaging first. Vivi Kidd MD 03/07/24 0234 * Starr Sampson RN - 03/02/2024 1:13 PM EDT Pt called back to go to room but reported that she wants to leave AMA. IV removed by CUSTOMS GUARD and AMA paperwork signed. * Starr Taylor [...] Lateral (Generic) (03/02/2024 11:09 AM EDT) Pathologist [facility] WORKSTATION ID [id number] DH RAD Anatomical Region Laterality Modality Chest N/A Digital Radiogra phy Impressions 03/02/2024 11:29 AM EDT No acute findings Thank you for letting us participate in the care of this patient. ??If you are a health care provider and have any questions regarding this report, please contact the number below. ??For patients who have questions please contact the health career development manager that requested your imaging first. ? Electronically signed by: Lisa Palmer MD, [facility] ([phone]), at 03/02/2024 11:29 AM Narrative 03/02/2024 11:29 [...] who have questions please contactthe health career development manager that requested your imaging first. Electronically signed by: Lisa Palmer MD, [facility]([phone]), at 03/02/2024 11:29 AM Vivi Kidd MD IMG DX ORDERABLES * Gold Tube HOLD (03/02/2024 11:02 AM EDT) Pathologist [facility] Gold Hold Hold for Add-on 03/02/2024 1:02 PM EDT [facility] Blood VENOUS BLOOD SPECIMEN / Unknown Venipuncture / Unknown 03/02/2024 11:02 AM EDT 03/02/2024 11:10 AM EDT Vivi Kidd MD CHEMISTRY ORDERABLES [facility] [place] [address] * Troponin-T, High Sensitivity (03/02/2024 11:02 AM EDT) Troponin-T, High Sensitivity Initial <6 <=14 ng/L 03/02/2024 12:07 PM EDT [facility] Comment: This patient's troponin T [...] troponin value can be found in the Replaced By [facility] Test Catalog Troponin - [email or web address]/[email or web address] Reference: Fourth Theodore Definition of Myocardial Infarction. Journal of the [place] [employer] 2018;72:4418-2605 Blood VENOUS BLOOD SPECIMEN / Unknown Venipuncture / Unknown 03/02/2024 11:02 AM EDT 03/02/2024 11:07 AM EDT Vivi Kidd MD CHEMISTRY ORDERABLES [facility] [place] [address] * Blue Tube HOLD (03/02/2024 11:02 AM EDT) Blue Hold Hold for Add-on 03/02/2024 1:02 PM EDT [facility] Blood VENOUS BLOOD SPECIMEN / Unknown Venipuncture / Unknown 03/02/2024 11:02 AM EDT 03/02/2024 11:07 AM EDT Vivi Kidd MD HEMATOLOGY ORDERABLE S [facility] [place] [address] * (ABNORMAL) Basic Metabolic Panel (03/02/2024 11:02 AM EDT) Pathologist [facility] Glucose 271(H) 65 - 199 mg/dL 03/02/2024 1:08 PM EDT [facility] Comment:Glucose Concentratio n >=200 mg/dL plus symptoms is consistent with Diabetes Mellitus. Blood Urea Nitrogen 18 8 - 18 mg/dL 03/02/2024 1:08 PM EDT [facility] Creatinine 0.61(L) 0.70 - 1.20 mg/dL 03/02/2024 1:08 PM EDT [facility] Sodium 136 135 - 145 mMol/L 03/02/2024 1:08 PM EDT [facility] Comment:This result was prev iously suppressed from the chart. Potassium 4.3 3.5 - 5.0 mMol/L 03/02/2024 1:08 PM EDT [facility] Comment:This result was prev iously suppressed from the chart. Chloride 101 98 - 107 mMol/L 03/02/2024 1:08 PM EDT [facility] Comment:This result was prev iously suppressed from the chart. Carbon Dioxide 21(L) 22 - 31 mMol/L 03/02/2024 1:08 PM EDT [facility] Anion Gap 14 5 - 15 mMol/L 03/02/2024 1:08 PM EDT [facility] Comment:This result was prev iously suppressed from the chart. Calcium 9.5 8.5 - 10.5 mg/dL 03/02/2024 1:08 PM EDT [facility] Est Glomerular Filtration Rate - Female 104 mL/min/1. 73 m?? 03/02/2024 1:08 PM EDT [facility] Comment: This patient's estimated GFR [...] AM EDT Vivi Kidd MD CHEMISTRY ORDERABLES [facility] [place] [address] * (ABNORMAL) CBC (with Diff) (03/02/2024 11:02 AM EDT) White Blood Cell 6.72 4.00 - 9.50 x10(3)/mc L 03/02/2024 11:18 AM EDT [facility] Red Blood Cell 4.60 4.00 - 5.21 x10(6)/mc L 03/02/2024 11:18 AM EDT [facility] Hemoglobin 10.6(L) 11.7 - 15.5 g/dL 03/02/2024 11:18 AM EDT [facility] Hematocrit 35.1(L) 35.7 - 45.8 % 03/02/2024 11:18 AM EDT [facility] Mean Cell Volume 76.3(L) 82.6 - 94.4 fL 03/02/2024 11:18 AM [facility] Mean Cell Hemoglobin 23.0(L) 27.1 - 32.0 pg 03/02/2024 11:18 AM [facility] Mean Cell Hemoglobin Concentration 30.2(L) 31.7 - 35.0 g/dL 03/02/2024 11:18 AM [facility] Platelet 268 145 - 357 x10(3)/mc L 03/02/2024 11:18 AM [facility] Mean Platelet Volume 10.1 7.6 - 12.9 fL 03/02/2024 11:18 AM [facility] RDW Standard Deviation 47.3(H) 37.0 - 46.0 fL 03/02/2024 11:18 AM [facility] RDW coefficient of variation 17.3(H) 11.5 - 14.1 % 03/02/2024 11:18 AM [facility] NRBC% auto 0.0 % 03/02/2024 11:18 AM [facility] NRBC Absolute <0.01 <0.01 x10(3)/mc L 03/02/2024 11:18 AM [facility] Neutrophil % 60.7 % 03/02/2024 11:18 AM [facility] Neutrophil Absolute (ANC) - Automated 4.08 1.70 - 6.10 x10(3)/mc L 03/02/2024 11:18 AM [facility] Lymph % 29.8 % 03/02/2024 11:18 AM [facility] Lymph Absolute 2.00 0.90 - 3.20 x10(3)/mc L 03/02/2024 11:18 AM [facility] Monocyte % 7.0 % 03/02/2024 11:18 AM [facility] Monocyte Absolute 0.47 0.30 - 0.90 x10(3)/mc L 03/02/2024 11:18 AM EDT [facility] Eos % 1.3 % 03/02/2024 11:18 AM EDT [facility] Eos Absolute 0.09 0.00 - 0.40 x10(3)/mc L 03/02/2024 11:18 AM EDT [facility] Basophil % 0.9 % 03/02/2024 11:18 AM EDT [facility] Baso Absolute 0.06 0.00 - 0.10 x10(3)/mc L 03/02/2024 11:18 AM EDT [facility] Immature Gran % 0.3 % 11:18 AM EDT [facility] Immature Gran Absolute <0.04 0.00 - 0.04 x10(3)/mc L 03/02/2024 11:18 AM EDT [facility] Blood VENOUS BLOOD SPECIMEN / Unknown Venipuncture / Unknown 03/02/2024 11:02 AM EDT 03/02/2024 11:07 AM EDT Vivi Kidd MD HEMATOLOGY ORDERABLE S Performing Organization Address City/State/[facility] Co de Phone Number [facility] [place] [address] * EKG 12 Lead (03/02/2024 10:46 AM EDT) Ventricular rate 68 BPM MUSE SYSTEM Atrial Rate 68 BPM MUSE SYSTEM P-R Interval 170 ms MUSE SYSTEM QRS Duration 164 ms MUSE SYSTEM Q-T Interval 478 ms MUSE SYSTEM QTC Calculated (Bezet) 508 ms MUSE SYSTEM Calculated P [place] 33 degrees MUSE SYSTEM Calculated R [place] 11 degrees MUSE SYSTEM Calculated T [place] 129 degrees MUSE SYSTEM INTERPRETATION Normal sinus rhythm Left bundle branch block Abnormal ECG When compared with ECG of 02-MAR-2024 10:07, (unconfirmed) No significant change was found Confirmed by MD Jeff, Clay ([id number]) on 03/02/2024 3:55:19 PM MUSE SYSTEM 03/02/2024 10:4 6 AM EDT 03/02/2024 3:55 PM EDT Vivi Kidd MD ECG ORDERABLES [employer] documented in this encounter Visit Diagnoses Not on filedocumented in this encounter Active and Recently Administered Medications Times are shown in EDT. Scheduled Medication Order 02/29/2024 03/01/2024 03/02/2024 aspirin chewable tablet 324 mg 324 mg, Oral, ONCE, 1 dose, On Fri03/02/24 at 1050, Unless allergic or given Prior To Admission (PLANNING ENGINEER). If partial dose administered PLANNING ENGINEER administer remaining MG for a total dose of 325 mg/day., STAT 1050 (Due) documented in this encounter Care Teams Cattle Rancher Relationship Specialty Start Date End Date Twan Pruitt [place] [address] [place] [address] PCP - General Internal Medicine 02/16/24 documented as of this encounter
--- OUTSIDE RECORDS SUMMARY | 2024-07-01 12:45 | XMS_ITS | Encounter Summary ---
[place] [address] Care Team Providers Care Reference Services Head Name Role Phone Moise Lala MD Primary Care Provider [phone] Encounter Details Date Type Department Care Team (Latest Contact Info) Description 04/08/2023 11:40 AM EST Laboratory Appointment Lab [address] [place] [address] Diarrhea, unspecified type; Elevated liver [...] Elevated liver enzymes HIV SCREEN, 4TH GENERATION ([facility]CGP/APD/NLH)PERF ORMABLE Routine 04/08/2023 10:57 AM EST [...] 10:57 AM EST) Neutrophil % 58.6 % [facility] Neutrophil Absolute 4.01 1.70 - 6.10 x10(3)/[facility] Lymph % 30.8 % [facility] Lymphocytes Abs 2.1 0.9 - 3.2 x10(3)/[facility] Monocyte % 7.4 % [facility] Monocyte Abs 0.5 0.3 - 0.9 x10(3)/[facility] Eos % 2.0 % [facility] Eosinophils Abs 0.1 0.0 - 0.4 x10(3)/[facility] Basophil % 0.9 % [facility] Baso Absolute 0.1 0.0 - 0.1 x10(3)/[facility]AT[facility] Immature Gran % 0.30 % [facility] Comment: Immature granulocytes(IG's)percentage and absolute count will include metamyelocytes, myelocytes, and promyelocytes. Blood smears from CBCs yielding IG's will be scanned manually for concordance. If this scan disagrees with the automated IG or if promyelocytes are noted, a manual differential will be performed. Immature Gran Absolute 0.02 0.00 - 0.04 x10(3)/[facility] Blood 04/08/2023 10:5 7 AM EST 04/08/2023 11:02 AM EST Narrative Resulting Agency Comment Spec In Lab Ana Maria Zacarias MD HEMATOLOGY ORDERABLE S Performing Organization Address City/State/[facility] Co de Phone Number [facility] [address] * (ABNORMAL) Hemogram (04/08/2023 10:57 AM EST) White Blood Cell 6.8 4.0 - 9.5 x10(3)/mc L [facility] Red Blood Cell 4.66 4.00 - 5.21 x10(6)/mc L [facility] Hemoglobin 12.8 11.7 - 15.5 g/dL [facility] Hematocrit 39.1 35.7 - 45.8 % [facility] Mean Cell Volume 83.9 82.6 - 94.4 fL [facility] Mean Cell Hemoglobin 27.5 27.1 - 32.0 pg [facility] Mean Cell Hemoglobin Concentration 32.7 31.7 - 35.0 g/dL [facility] Platelet 243 145 - 357 x10(3)/mc L [facility] RDW Standard Deviation 46.7(H) 37.0 - 46.0 fL [facility] RDW coefficient of variation 15.3(H) 11.5 - 14.1 % [facility] Mean Platelet Volume 10.0 7.6 - 12.9 fL [facility] NRBC% auto 0.0 % [facility] NRBC Absolute 0.000 0.000 - 0.000 x10(3)/mc L [facility] Blood 04/08/2023 10:5 7 AM EST 04/08/2023 11:02 AM EST Narrative Resulting Agency Comment Spec In Lab Ana Maria Zacarias MD HEMATOLOGY ORDERABLE S [facility] [address] [place] [address] * (ABNORMAL) Comprehensive metabolic panel (non-fasting) (04/08/2023 10:57 AM EST) Glucose 126 65 - 199 mg/dL [facility] Comment:Diabetes: >=200 mg/d L plus symptoms Blood Urea Nitrogen 17 8 - 18 mg/dL [facility] Creatinine 0.68(L) 0.70 - 1.20 mg/dL [facility] Sodium 138 135 - 145 mmol/L [facility] Potassium 3.8 3.5 - 5.0 mmol/L [facility] Comment: Please note: ??Patients with WBC >100,000 may have falsely elevated Potassium levels. ??For accurate Potassium quantification in these patients send serum separator tube (gold top) for subsequent determinations. ??Contact the Clinical Chemistry Laboratory if there are any questions. Chloride 103 98 - 107 mmol/L [facility] Carbon Dioxide 23 22 - 31 mmol/L [facility] Anion Gap 12 5 - 15 mmol/L [facility] Calcium 9.0 8.5 - 10.5 mg/dL [facility] Protein, Total 6.8 6.1 - 8.0 g/dL [facility] Albumin 4.1 3.2 - 5.2 g/dL [facility] Aspartate Aminotransferase 20 0 - 30 unit/L [facility] Alanine Aminotransferase 24 0 - 30 unit/L [facility] Alkaline Phosphatase 137(H) 35 - 105 unit/L [facility] Bilirubin, Total 0.2 0.2 - 1.3 mg/dL [facility] Est Glomerular Filtration Rate 102 >=60 mL/min/1. 73 m?? [facility] Comment: This patient's estimated GFR [...] Zacarias MD CHEMISTRY ORDERABLES Performing Organization Address [facility] Co de Phone Number [place] [address] * Prothrombin Time (04/08/2023 10:57 AM EST) Prothrombin Time 11.0 9.4 - 12.5 sec [facility] International Normalization Ratio 1.0 [facility] Comment: An INR <2.0 indicates adequate [...] MD HEMATOLOGY ORDERABLE S Performing Organization Address City/[facility]/ZIP Co de Phone Number [place] [address] * Hepatitis A Antibody, Total (04/08/2023 10:57 AM EST) Hepatitis A ANTIBODY, TOTAL Negative Negative [facility] Blood 04/08/2023 10:5 7 AM EST 04/08/2023 11:02 AM EST Narrative Resulting Agency Comment Spec In Lab Ana Maria Zacarias MD CHEMISTRY ORDERABLES Performing Organization Address City/[facility] Co de Phone Number [place] [address] * Hepatitis B Surface Antibody (04/08/2023 10:57 AM EST) Hepatitis B Surface Antibody, Quantitative 43.0 IU/L [facility] Comment: HepB Surface Ab Quant: Unvaccinated: < 8.5 IU/L Vaccinated: >= 11.5 IU/L Hepatitis B Surface Antibody Positive [facility] Comment: Patient is considered to be immune to HBV infection. Expected Results: Vaccinated: Positive Unvaccinated: Negative Blood 04/08/2023 10:5 7 AM EST 04/08/2023 11:02 AM EST Narrative Resulting Agency Comment Spec In Lab Ana Maria Zacarias MD CHEMISTRY ORDERABLES Performing Organization Address City/[facility] Co de Phone Number [place] [address] * Hepatitis B Surface Antigen (04/08/2023 10:57 AM EST) Hepatitis B Surface Antigen Negative Negative [facility] Blood 04/08/2023 10:5 7 AM EST 04/08/2023 11:02 AM EST Narrative Resulting Agency Comment Spec In Lab Ana Maria Zacarias MD CHEMISTRY ORDERABLES Performing Organization Address [facility] Co de Phone Number [place] [address] * Hepatitis B Core Antibody, Total (04/08/2023 10:57 AM EST) Hepatitis B Core Antibody Negative Negative [facility] Blood 04/08/2023 10:5 7 AM EST 04/08/2023 11:02 AM EST Narrative Resulting Agency Comment Spec In Lab Ana Maria Zacarias MD CHEMISTRY ORDERABLES Performing Organization Address City/[facility] Co de Phone Number [place] [address] * Hepatitis C Antibody (04/08/2023 10:57 AM EST) Hepatitis C Antibody Negative Negative [facility] Blood 04/08/2023 10:5 7 AM EST 04/08/2023 11:02 AM EST Narrative Resulting Agency Comment Spec In Lab Ana Maria Zacarias MD CHEMISTRY ORDERABLES Performing Organization Address City/[facility]/ZIP Co de Phone Number [place] [address] * HIV Screen, 4th Generation ([facility]/CGP/APD/NLH) (04/08/2023 10:57 AM EST) Pathologist [facility] HIV Ab/Ag Screen Negative Negative [facility] Comment: This 4th Generation HIV test [...] HIV Comment Low Risk of HIV Infection [facility] Blood 04/08/2023 10:5 7 AM EST 04/08/2023 11:02 AM EST Narrative Resulting Agency Comment Spec In Lab Ana Maria Zacarias MD CHEMISTRY ORDERABLES Performing Organization Address City/[facility] Co de Phone Number [place] [address] * (ABNORMAL) Chromogranin A (04/08/2023 10:57 AM EST) Pathologist [facility] Chromogranin A (SEPTEMBER) 575(H) <93 ng/mL [facility] Comment: Impaired renal or hepatic function or treatment with proton pump inhibitors may result in artifactual elevations of Chromogranin A. ADDITIONAL INFORMATION This test was developed and its performance characteristics determined by [facility] in a manner consistent with CLIA requirements. [...] a homogeneous time-resolved immunofluorescent assay manufactured by [employer] and performed on the [employer] Kryptor Compact Plus. Values obtained with different assay methods or kits may be different and cannot be used interchangeably. Test results cannot be interpreted as absolute evidence for the presence or absence of malignant disease. Test Performed by: [facility] [place] [place] [address] Garden Equipment Mechanic: Alexis Potter M.D. Ph.D.; CLIA# [id number] Blood 04/08/2023 10:5 7 AM EST 04/08/2023 1:21 PM EST Narrative Resulting Agency Comment Spec In Lab Ana Maria Zacarias MD LAB SEND OUT ORDERAB LES Performing Organization Address [facility] de Phone Number [place] [address] * (ABNORMAL) Gastrin (04/08/2023 10:57 AM EST) Gastrin (SEPTEMBER) 215(H) pg/mL [facility] Comment: REFERENCE VALUE <100 Reference ranges valid for >= 8 hour fast. Test Performed by: [facility] - [address] [address] Garden Equipment Mechanic: Alexis Potter M.D. Ph.D.; CLIA# [id number] Blood 04/08/2023 10:5 7 AM EST 04/08/2023 1:21 PM EST Narrative Resulting Agency Comment Spec In Lab Ana Maria Zacarias MD LAB SEND OUT ORDERAB LES Performing Organization Address [facility] Co de Phone Number [place] [address] * TSH (04/08/2023 10:57 AM EST) Thyroid Stimulating Hormone 1.49 0.27 - 4.20 mcIU/mL [facility] Comment: Reference Interval (mcIU/mL): Females: ??First Trimester: 0.23-3.88 ??Second Trimester: 0.22-3.90 ??Third Trimester: 0.44-4.66 Blood 04/08/2023 10:5 7 AM EST 04/08/2023 11:02 AM EST Narrative Resulting Agency Comment Spec In Lab Ana Maria Zacarias MD CHEMISTRY ORDERABLES Performing Organization Address [facility] Co de Phone Number [place] [address] documented in this encounter Visit Diagnoses Diagnosis Diarrhea, unspecified type Elevated liver enzymes Nonspecific elevation of levels of transaminase or lactic acid dehydrogenase (LDH) documented in this encounter Care Teams Reference Services Head Relationship Specialty Start Date End Date Moise Lala MD PCP - General Family Medicine 06/26/17 02/15/24 documented as of this encounter
--- OUTSIDE RECORDS SUMMARY | 2024-07-01 12:45 | XMS_ITS | Encounter Summary ---
[place] [address] Care Team Providers Care Crate Tier Name Role Phone Moise Lala MD Primary Care Provider [phone] Encounter Details Date Type Department Care Team [...] on filedocumented in this encounter Care Teams Crate Tier Relationship Specialty Start Date End Date Moise Lala MD PCP - General Family Medicine 06/26/17 02/15/24 documented as of this encounter
--- OUTSIDE RECORDS SUMMARY | 2024-07-01 12:45 | XMS_ITS | Encounter Summary ---
[place] [address] Care Team Providers Care Purse Maker Name Role Phone Twan Pruitt Primary Care Provider + Encounter Details Date Type Department Care Team (Late st Contact Info) Description 03/02/2024 10:00 AM EDT Office Visit Cardiology at [address] [phone] Malvin Russo, BLANCA HFrEF (heart failure with [...] this encounter Progress Notes * Malvin Russo, WEB MARKETING ANALYST - 03/02/2024 10:00 AM EDT Images from the original note were not included. [facility] Section of Advanced Heart Failure Cardiology [facility] [address] [place] [address] OUTPATIENT VISIT DATE: 03/01/24 OUTPATIENT VISIT TYPE: [...] seen by Dr. Hendricks in 02/2023 at [facility]. She reports a history of LBBB, reportedly back [id number], when she was in [place]. She reports that she had an echo [...] 2.23) performed by Kody Toth MD at [facility] MAIN OR PRO ENDOSCOPIC US EXAM, ESOPH N/A 11/07/2021 UPPER EUS- ENDOSCOPIC ULTRASOUND performed by Guillermo Omer MD at [facility] ENDOSCOPY PRO ERCP, SPHINCTEROTOMY N/A 11/07/2021 ERCP W/SPHINCTEROTOMY/PAPILLOTOMY performed by Guillermo Omer MD at [facility] ENDOSCOPY PRO ERCP, W/REMOVAL STONE, PEDRO/PANCR DUCTS 11/07/2021 ERCP W/REMOVAL CALCULI/DEBRIS FROM BILARY/PANCREATIC DUCT(S) performed by Guillermo Omer MD at [facility] ENDOSCOPY PRO LAPAROSCOPY W TOT HYSTERECTUTERUS <=250 GRAM W TUBE/OVARY N/A 08/19/2017 LAPAROSCOPY, TOTAL HYST, UTERUS<250GMS, REM TUBE &/OR OVARY (WRVU 15) performed by Kody Toth MD at [facility] MAIN OR PRO UPPER GI ENDOSCOPY, BIOPSY N/A 06/23/2023 EGD WITH BIOPSY (WRVU 2.39) performed by Thomas Hawthorne MD at [facility] ENDOSCOPY FAMILY HISTORY: Does have a significant family history, including dad with ME at age 48. 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, but due to consistent fatigue, had been [...] (Bezet) 506 ms MUSE SYSTEM Calculated P Belden 70 degrees MUSE SYSTEM Calculated R Belden 35 degrees MUSE SYSTEM Calculated T Belden 102 degrees MUSE SYSTEM INTERPRETATION Normal sinus rhythm Left bundle branch block Abnormal ECG When compared with ECG of 16-FEB-2024 09:58, No significant change was found Confirmed by MD Jeff, Clay ([id number]) on 03/02/2024 3:55:15 PM MUSE SYSTEM 03/02/2024 10:0 7 AM EDT 03/02/2024 3:55 PM EDT Unknown ECG ORDERABLES MUSE SYSTEM * TSH [place] (03/02/2024 9:06 AM EDT) Thyroid Stimulating Hormone 1.29 0.27 - 4.20 mcIU/mL 03/02/2024 11:14 AM EDT [facility] Comment: Reference Interval (mcIU/mL): ?? Females: ? First Trimester: 0.23-3.88 ? Second Trimester: 0.22-3.90 ? Third Trimester: 0.44-4.66 Blood VENOUS BLOOD SPECIMEN / Unknown Venipuncture / Unknown 03/02/2024 9:06 AM EDT 03/02/2024 9:06 AM EDT Malvin Solis Liqukrysta WEB MARKETING ANALYST CHEMISTRY ORDERABLE S [facility] [place] [address] * pro-Brain Natriuretic Peptide (03/02/2024 9:06 AM EDT) NT-proBNP 102 <=124 pg/mL 03/02/2024 11:14 AM EDT [facility] Blood VENOUS BLOOD SPECIMEN / Unknown Venipuncture / Unknown 03/02/2024 9:06 AM EDT 03/02/2024 9:06 AM EDT Malvin Russo WEB MARKETING ANALYST CHEMISTRY ORDERABLE S Performing Organization Address City/[facility]/ZIP Co de Phone Number [facility] [place] [address] * Magnesium (03/02/2024 9:06 AM EDT) Magnesium 0.85 0.69 - 1.07 mMol/L 03/02/2024 11:14 AM EDT [facility] Blood VENOUS BLOOD SPECIMEN / Unknown Venipuncture / Unknown 03/02/2024 9:06 AM EDT 03/02/2024 9:06 AM EDT Malvin Solis Liqukrysta WEB MARKETING ANALYST CHEMISTRY ORDERABLE S Performing Organization Address City/[facility]/ZIP Co de Phone Number [facility] [place] [address] * (ABNORMAL) Hepatic Function Panel (03/02/2024 9:06 AM EDT) Albumin 4.4 3.2 - 5.2 g/dL 03/02/2024 11:14 AM EDT [facility] Aspartate Aminotransferase 19 <=30 unit/L 03/02/2024 11:14 AM EDT [facility] Alanine Aminotransferase 30 0 - 30 unit/L 03/02/2024 11:14 AM EDT [facility] Alkaline Phosphatase 135(H) 35 - 105 unit/L 03/02/2024 11:14 AM EDT [facility] Bilirubin, Total 0.2 <=1.3 mg/dL 03/02/2024 11:14 AM EDT [facility] Bilirubin, Direct <0.2 0.0 - 0.3 mg/dL 03/02/2024 11:14 AM EDT [facility] Protein, Total 7.5 6.1 - 8.0 g/dL 03/02/2024 11:14 AM T [facility] Blood VENOUS BLOOD SPECIMEN / Unknown Venipuncture / Unknown 03/02/2024 9:06 AM EDT 03/02/2024 9:06 AM EDT Malvin Russo WEB MARKETING ANALYST CHEMISTRY ORDERABLE S [facility] [place] [address] * (ABNORMAL) Basic Metabolic Panel Non-fasting (03/02/2024 9:06 AM EDT) Glucose 207(H) 65 - 199 mg/dL 03/02/2024 11:34 AM EDT [facility] Comment:Glucose Concentratio n >=200 mg/dL plus symptoms is consistent with Diabetes Mellitus. Blood Urea Nitrogen 19(H) 8 - 18 mg/dL 03/02/2024 11:34 AM EDT [facility] Creatinine 0.64(L) 0.70 - 1.20 mg/dL 03/02/2024 11:34 AM EDT [facility] Sodium 138 135 - 145 mMol/L 03/02/2024 11:34 AM [facility] Potassium 4.4 3.5 - 5.0 mMol/L 03/02/2024 11:34 AM [facility] Chloride 100 98 - 107 mMol/L 03/02/2024 11:34 AM [facility] Carbon Dioxide 25 22 - 31 mMol/L 03/02/2024 11:34 AM [facility] Anion Gap 13 5 - 15 mMol/L 03/02/2024 11:34 AM [facility] Calcium 9.5 8.5 - 10.5 mg/dL 03/02/2024 11:34 AM [facility] Est Glomerular Filtration Rate - Female 103 mL/min/1. 73 m?? 03/02/2024 11:34 AM [facility] Comment: This patient's estimated GFR [...] Fasting Status No 03/02/2024 11:34 AM T [facility] Blood VENOUS BLOOD SPECIMEN / Unknown Venipuncture / Unknown 03/02/2024 9:06 AM EDT 03/02/2024 9:06 AM EDT Malvin Russo WEB MARKETING ANALYST CHEMISTRY ORDERABLE S [facility] [place] [address] documented in this encounter Visit Diagnoses Diagnosis HFrEF (heart failure with reduced ejection fraction) documented in this encounter Care Teams Purse Maker Relationship Specialty Start Date End Date Twan Pruitt PA [facility] [place] [address] PCP - General Internal Medicine 02/16/24 documented as of this encounter
--- OUTSIDE RECORDS SUMMARY | 2024-07-01 12:45 | XMS_ITS | Encounter Summary ---
[place] [address] Care Team Providers Care Electrical Accessories Ii Assembler Name Role Phone Twan Pruitt Primary Care Provider + Encounter Details Date Type Department Care Team (Latest Contact Info) Description 03/02/2024 9:00 AM EDT Laboratory Appointment Lab [address] [place] [address] HFrEF (heart failure with reduced [...] documented in this encounter Results * TSH [place] (03/02/2024 9:06 AM EDT) Thyroid Stimulating Hormone 1.29 0.27 - 4.20 mcIU/mL 03/02/2024 11:14 AM EDT [facility] Comment: Reference Interval (mcIU/mL): ?? Females: ? First Trimester: 0.23-3.88 ? Second Trimester: 0.22-3.90 ? Third Trimester: 0.44-4.66 Blood VENOUS BLOOD SPECIMEN / Unknown Venipuncture / Unknown 03/02/2024 9:06 AM EDT 03/02/2024 9:06 AM EDT Malvin Russo ENVIRONMENTAL PROFESSIONAL CHEMISTRY ORDERABLE S [facility] [place] [address] * pro-Brain Natriuretic Peptide (03/02/2024 9:06 AM EDT) NT-proBNP 102 <=124 pg/mL 03/02/2024 11:14 AM EDT [facility] Blood VENOUS BLOOD SPECIMEN / Unknown Venipuncture / Unknown 03/02/2024 9:06 AM EDT 03/02/2024 9:06 AM EDT Mlavin Russo ENVIRONMENTAL PROFESSIONAL CHEMISTRY ORDERABLE S [facility] [place] [address] * Magnesium (03/02/2024 9:06 AM EDT) Magnesium 0.85 0.69 - 1.07 mMol/L 03/02/2024 11:14 AM EDT [facility] Blood VENOUS BLOOD SPECIMEN / Unknown Venipuncture / Unknown 03/02/2024 9:06 AM EDT 03/02/2024 9:06 AM EDT Malvin Russo ENVIRONMENTAL PROFESSIONAL CHEMISTRY ORDERABLE S Performing Organization Address City/[facility]/ZIP Co de Phone Number [facility] [place] [address] * (ABNORMAL) Hepatic Function Panel (03/02/2024 9:06 AM EDT) Albumin 4.4 3.2 - 5.2 g/dL 03/02/2024 11:14 AM EDT [facility] Aspartate Aminotransferase 19 <=30 unit/L 03/02/2024 11:14 AM EDT [facility] Alanine Aminotransferase 30 0 - 30 unit/L 03/02/2024 11:14 AM EDT [facility] Alkaline Phosphatase 135(H) 35 - 105 unit/L 03/02/2024 11:14 AM EDT [facility] Bilirubin, Total 0.2 <=1.3 mg/dL 03/02/2024 11:14 AM EDT [facility] Bilirubin, Direct <0.2 0.0 - 0.3 mg/dL 03/02/2024 11:14 AM EDT [facility] Protein, Total 7.5 6.1 - 8.0 g/dL 03/02/2024 11:14 AM EDT [facility] Blood VENOUS BLOOD SPECIMEN / Unknown Venipuncture / Unknown 03/02/2024 9:06 AM EDT 03/02/2024 9:06 AM EDT Malvin Russo ENVIRONMENTAL PROFESSIONAL CHEMISTRY ORDERABLE S [facility] [place] [address] * (ABNORMAL) Basic Metabolic Panel Non-fasting (03/02/2024 9:06 AM ED) Glucose 207(H) 65 - 199 mg/dL 03/02/2024 11:34 AM [facility] Comment:Glucose Concentratio n >=200 mg/dL plus symptoms is consistent with Diabetes Mellitus. Blood Urea Nitrogen 19(H) 8 - 18 mg/dL 03/02/2024 11:34 AM [facility] Creatinine 0.64(L) 0.70 - 1.20 mg/dL 03/02/2024 11:34 AM [facility] Sodium 138 135 - 145 mMol/L 03/02/2024 11:34 AM [facility] Potassium 4.4 3.5 - 5.0 mMol/L 03/02/2024 11:34 AM [facility] Chloride 100 98 - 107 mMol/L 03/02/2024 11:34 AM [facility] Carbon Dioxide 25 22 - 31 mMol/L 03/02/2024 11:34 AM [facility] Anion Gap 13 5 - 15 mMol/L 03/02/2024 11:34 AM [facility] Calcium 9.5 8.5 - 10.5 mg/dL 03/02/2024 11:34 AM [facility] Est Glomerular Filtration Rate - Female 103 mL/min/1. 73 m?? 03/02/2024 11:34 AM [facility] Comment: This patient's estimated GFR [...] Fasting Status No 03/02/2024 11:34 AM EDT [facility] Blood VENOUS BLOOD SPECIMEN / Unknown Venipuncture / Unknown 03/02/2024 9:06 AM EDT 03/02/2024 9:06 AM EDT Malvin Russo ENVIRONMENTAL PROFESSIONAL CHEMISTRY ORDERABLE S Performing Organization Address City/State/[facility] Co de Phone Number [facility] [place] [address] documented in this encounter Visit Diagnoses Diagnosis HFrEF (heart failure with reduced ejection fraction) documented in this encounter Care Teams Electrical Accessories Ii Assembler Relationship Specialty Start Date End Date Twan Pruitt PA [place] [address] PCP - General Internal Medicine 02/16/24 documented as of this encounter
--- OUTSIDE RECORDS SUMMARY | 2024-07-01 12:45 | XMS_ITS | Encounter Summary ---
[place] [address] Care Team Providers Care Cardiovascular Surgeon Name Role Phone Moise Lala MD Primary Care Provider [phone] Encounter Details Date Type Department Care Team [...] on filedocumented in this encounter Care Teams Cardiovascular Surgeon Relationship Specialty Start Date End Date Moise Lala MD PCP - General Family Medicine 06/26/17 02/15/24 documented as of this encounter
--- OUTSIDE RECORDS SUMMARY | 2024-07-01 12:45 | XMS_ITS | Encounter Summary ---
Author Organization [place] [address] Care Team Providers Care Sleeping Car Porter Name Role Phone Moise Lala MD Primary Care Provider [phone] Reason for Referral * Consultation (Routine) - Denied Specialty Diagnoses / Procedures Referred By Contac t Referred To Contact Infectious Diseases Diagnoses HFrEF (heart failure with reduced ejection fraction) Family history of premature CAD Post-COVID chronic dyspnea Shane Romano MD [facility] [place] [address] [facility] Infectious Dis [address] [place] [address] Referral ID Status Reason Start Date Expiration Date V isits Requested Visits Authorized [id number] Denied Consult, Test & Treat 04/16/2023 04/15/2024 1 0 * Diagnostic Test (Routine) - Closed Specialty Diagnoses / Procedures Referred By Gael ritter Referred To Contact Radiology Diagnoses HFrEF (heart failure with reduced ejection fraction) Family history of premature CAD Procedures MRI Cardiac Morphology Function and Stress wwo Contrast Shane Romano MD [facility] [address] [facility] [place] [address] Referral ID Status Reason Start Date Expiration Date V isits Requested Visits Authorized [id number] Closed Specialty Service Requested 04/16/2023 10/14/2024 1 [...] appropriate next step. Ana Maria Hendricks MD [address] [place] [id number] Giselle Nelson MD [facility] [place] [address] Referral ID Status Reason Start Date Expiration Date V isits Requested Visits Authorized [id number] Closed Consult, Test & Treat PCP Updated and/or Approved 03/13/2023 03/12/2024 6 6 Encounter Details Date Type Department Care Team ([facility] st Contact Info) Description 04/16/2023 10:20 AM EST Office Visit Cardiology at [address] [address] Giselle Nelson MD Post-COVID chronic [...] from the original note were not included. [facility] [place] Section of Advanced Heart Failure Cardiology [facility] [place] [address] OUTPATIENT VISIT DATE: 04/16/23 OUTPATIENT VISIT TYPE: [...] seen by Dr. Hendricks in 02/[address] [facility]. She reports a history of LBBB, reportedly back as6022, when she was in [place]. She reports that she had an echo [...] a significant family history, including dad with NV at age 48. She also has cousins [...] 2.23) performed by Kody Toth MD at [facility] PRO ENDOSCOPIC US EXAM, ESOPH N/A 11/07/2021 UPPER EUS- ENDOSCOPIC ULTRASOUND performed by Guillermo Omer MD at [facility] ENDOSCOPY PRO ERCP, SPHINCTEROTOMY N/A 11/07/2021 ERCP W/SPHINCTEROTOMY/PAPILLOTOMY performed by Guillermo Omer MD at [facility] ENDOSCOPY PRO ERCP, W/REMOVAL STONE, PEDRO/PANCR DUCTS 11/07/2021 ERCP W/REMOVAL CALCULI/DEBRIS FROM BILARY/PANCREATIC DUCT(S) performed by Guillermo Omer MD at [facility] ENDOSCOPY PRO LAPAROSCOPY W TOT HYSTERECTUTERUS <=250 GRAM W TUBE/OVARY N/A 08/19/2017 LAPAROSCOPY, TOTAL HYST, UTERUS<250GMS, REM TUBE &/OR OVARY (WRVU 15) performed by Kody Toth MD at [facility] MA[facility] OR FAMILY HISTORY: Does have a significant family history, including dad with NV at age 48. 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 ? Electronically signed by: Jp Schofield MD, [facility] ([phone]), at 02/16/2024 11:59 AM Narrative 02/16/2024 11:59 [...] previous infarct or resting myocardial ischemia. TI Batchmaker: TI Batchmaker demonstrates normal nulling patterns. Delayed enhancement: Delayed [...] suggest previous infarct or resting myocardialischemia. TI Batchmaker: TI Batchmaker demonstrates normal nulling patterns. Delayed enhancement: Delayed [...] patients who have questions please contactthe health chiropractic care that requested your imaging first. Electronically signed by: Jp Schofield MD, [facility]([phone]), at 02/16/2024 11:59 AM Giselle Nelson MD IMG MRI ORDERABLE S * (ABNORMAL) Protein Electrophoresis, urine, random (04/16/2023 9:30 AM EST) Protein, Urine 14(H) 0 - 12 mg/dL [facility] U Albumin 38 % total [facility] Globulin, Urine 62 % total [facility] M1 Band, Urine None Detected [facility] UPEP Comments See Note [facility] Comment: There is no evidence of clonal free light chains in this patient's urine sample. Urine 04/16/2023 9:30 AM EST 04/16/2023 9:39 AM EST Narrative Resulting Agency Comment Spec In Lab Giselle Nelson MD URINE ORDERABLES [facility] [place] [address] * Rheumatoid factor, quant (04/16/2023 9:19 AM EST) Rheumatoid Factor <10 <=14 IU/mL [facility] Blood 04/16/2023 9:19 AM EST 04/16/2023 9:29 AM EST Narrative Resulting Agency Comment Spec In Lab Giselle Nelson MD CHEMISTRY ORDERAB LES [facility] [place] [address] * FRANCES Antibody Screen (04/16/2023 9:19 AM EST) FRANCES Ab Screen Negative Negative [facility] Comment: This antinuclear antibody (FRANCES) screen is a qualitative test performed using a fluoroenzyme immunoassay on the [employer] Softwaredia 250 analyzer. This screen is designed to [...] performed by the Special Chemistry Laboratory at [facility]. This change in testing location is associated with a change is testing method and reference intervals. Please review the results of this test in association with the posted reference intervals. dsDNA Ab 1.0 <=15.0 IU/mL [facility] Comment: <10 negative 10-15 [...] performed by the Special Chemistry Laboratory at [facility]. This change in testing location is associated with a change is testing method and reference intervals. Please review the results of this test in association with the posted reference intervals. Blood 04/16/2023 9:19 AM EST 04/16/2023 10:44 AM EST Narrative Resulting Agency Comment Spec In Lab Giselle Nelson MD LAB SEND OUT ORDE MIGUEL Performing Organization Address [facility] Co de Phone Number [facility] [place] [address] * TSH [place] (04/16/2023 9:19 AM EST) Thyroid Stimulating Hormone 1.66 0.27 - 4.20 mcIU/mL [facility] Comment: Reference Interval (mcIU/mL): Females: ??First Trimester: 0.23-3.88 ??Second Trimester: 0.22-3.90 ??Third Trimester: 0.44-4.66 Blood 04/16/2023 9:19 AM EST 04/16/2023 9:29 AM EST Narrative Resulting Agency Comment Spec In Lab Giselle Nelson MD CHEMISTRY ORDERAB LES Performing Organization Address [facility] Co de Phone Number [facility] [place] [address] * Free Light Chains, Serum (04/16/2023 9:19 AM EST) Pathologist [facility] [place] Free Light Chain 2.28 0.72 - 2.75 mg/dL [facility] Lambda Free Light Chain 1.72 0.57 - 2.15 mg/dL [facility] [place]/Lambda FLC Ratio 1.3256 0.4000 - 2.5800 [facility] Blood 04/16/2023 9:19 AM EST 04/16/2023 9:29 AM EST Narrative Resulting Agency Comment Spec In Lab Giselle Nelson MD CHEMISTRY ORDERAB LES Performing Organization Address City/[facility] Co de Phone Number [facility] [place] [address] * Protein Electrophoresis, serum (04/16/2023 9:19 AM EST) Total Prot Electrophoresis 6.8 6.1 - 8.0 g/dL [facility] Albumin Electrophoresis 4.02 3.20 - 5.20 g/dL [facility] Alpha 1 Globulin 0.24 0.10 - 0.30 g/dL [facility] Alpha 2 Globulin 0.88 0.40 - 0.90 g/dL [facility] Beta Globulin 0.90 0.50 - 1.00 g/dL [facility] Gamma Globulin 0.77 0.50 - 1.30 g/dL [facility] M1 Band None Detected None Detected [facility] Blood 04/16/2023 9:19 AM EST 04/16/2023 9:29 AM EST Narrative Resulting Agency Comment Spec In Lab Giselle Nelson MD CHEMISTRY ORDERAB LES Performing Organization Address City/[facility] Co de Phone Number [facility] [place] [address] * (ABNORMAL) Ferritin (04/16/2023 9:19 AM EST) Ferritin 13(L) 30 - 400 ng/mL [facility] Comment: Pediatric reference ranges not verified at [facility], interpret with caution. Reference ranges for females greater than 50 years of age approach values for men, i.e., 30-400 ng/mL. Blood 04/16/2023 9:19 AM EST 04/16/2023 9:29 AM EST Narrative Resulting Agency Comment Spec In Lab Giselle Nelson MD CHEMISTRY ORDERAB LES Performing Organization Address [facility] Co de Phone Number [facility] [place] [address] * (ABNORMAL) Iron and TIBC (04/16/2023 9:19 AM EST) Iron 53 30 - 150 mcg/dL [facility] TIBC 442 250 - 450 mcg/dL [facility] Iron Saturation 12(L) 20 - 50 % [facility] Blood 04/16/2023 9:19 AM EST 04/16/2023 9:29 AM EST Narrative Resulting Agency Comment Spec In Lab Giselle Nelson MD CHEMISTRY ORDERAB LES Performing Organization Address City/[facility] Co de Phone Number [facility] [place] [address] * (ABNORMAL) Hemoglobin A1c (04/16/2023 9:19 AM EST) Hemoglobin A1c 7.7(H) 4.3 - 5.6 % [facility] Comment: Reference Range: 4.3 - [...] Mellitus, Diabetes Care 2013; 36: Suppl. 1, S69-27 Estimated Average Glucose 173 mg/dL [facility] Comment: Note: The eAG calculation has not been proven valid for women, individuals below 18 years old or above 70 years old, or individuals with hemoglobinopathies. Estimated average glucose (eAG) is calculated from the equation described in: [employer] LEWIS, Tish J, Waqas R, et al. ??Translating the A1C assay into estimated average glucose values. ??Diabetes Care 2008:31(8):9091-4031. Additional resources are available on the ADA website (diabetes.org). Blood 04/16/2023 9:19 AM EST 04/16/2023 9:29 AM EST Narrative Resulting Agency Comment Spec In Lab Giselle Nelson MD CHEMISTRY ORDERAB LES [facility] [place] [address] * Lipid Panel (Reflex Direct LDL) (04/16/2023 9:19 AM EST) Cholesterol, Total 180 mg/dL [facility] Comment: Lower Risk: <200 mg/dL Average Risk: 200-239 mg/dL Higher Risk: >oc=717 mg/dL Triglyceride 165 mg/dL [facility] Comment: Average Risk/Lower Risk: <150 mg/dL Borderline High Risk: 150-199 mg/dL High Risk: 200-499 mg/dL Very High Risk: >rm=868 mg/dL HDL Cholesterol 50 mg/dL [facility] Comment: Males: ?? Higher Risk: <40 mg/dL Females: ?? Higher Risk: <50 mg/dL LDL Cholesterol 97 mg/dL [facility] Comment: Lowest Risk: <100 mg/dL Lower Risk: 100-129 mg/dL Borderline High Risk: 130-159 mg/dL High Risk: 160-189 mg/dL Very High Risk: >zp=762 mg/dL Cholesterol/HDL Ratio 3.6 ratio [facility] Lipid Interpretation See Note [facility] Comment: Lipid management should be guided by a patient? s ASCVD risk, goals and preferences. ACC/AHA Guidelines recommend high intensity statin if clinical ASCVD or LDL greater than or equal to 190 mg/dL. http://[employer].com/HUM-GWJ-Tndrevank Adults aged 40-75 with LDL 70-189 mg/dL should have their 10 year ASCVD risk estimated with the ACC/AHA ASCVD risk paperboard boxes estimator http://tools.acc.org/DTADA-Isbg-Ssbaqwhmj/ Statin should be discussed if risk greater [...] Lab Giselle Nelson MD CHEMISTRY ORDERAB LES [facility] [place] [address] * pro-Brain Natriuretic Peptide (04/16/2023 9:19 AM EST) NT-proBNP 58 <=124 pg/mL [facility] Blood 04/16/2023 9:19 AM EST 04/16/2023 9:29 AM EST Narrative Resulting Agency Comment Spec In Lab Giselle Nelson MD CHEMISTRY ORDERAB LES [facility] [address] [facility] [place] [address] * (ABNORMAL) Comprehensive metabolic panel (non-fasting) (04/16/2023 9:19 AM EST) Glucose 148 65 - 199 mg/dL [facility] Comment:Diabetes: >=200 mg/d L plus symptoms Blood Urea Nitrogen 16 8 - 18 mg/dL [facility] Creatinine 0.67(L) 0.70 - 1.20 mg/dL [facility] Sodium 139 135 - 145 mmol/L [facility] Potassium 4.0 3.5 - 5.0 mmol/L [facility] Comment: Please note: ??Patients with WBC >100,000 may have falsely elevated Potassium levels. ??For accurate Potassium quantification in these patients send serum separator tube (gold top) for subsequent determinations. ??Contact the Clinical Chemistry Laboratory if there are any questions. Chloride 101 98 - 107 mmol/L [facility] Carbon Dioxide 23 22 - 31 mmol/L [facility] Anion Gap 15 5 - 15 mmol/L [facility] Calcium 9.4 8.5 - 10.5 mg/dL [facility] Protein, Total 7.0 6.1 - 8.0 g/dL [facility] Albumin 4.4 3.2 - 5.2 g/dL [facility] Aspartate Aminotransferase 19 0 - 30 unit/L [facility] Alanine Aminotransferase 27 0 - 30 unit/L [facility] Alkaline Phosphatase 152(H) 35 - 105 unit/L [facility] Bilirubin, Total 0.3 0.2 - 1.3 mg/dL [facility] Est Glomerular Filtration Rate 103 >=60 mL/min/1. 73 m?? [facility] Comment: This patient's estimated GFR [...] MD CHEMISTRY ORDERAB LES Performing Organization Address City/State/[facility] Co de Phone Number [facility] [place] [address] documented in this encounter Visit Diagnoses Diagnosis Post-COVID chronic dyspnea- Primary HFrEF (heart failure with reduced ejection fraction) Family history of premature CAD Family history of ischemic heart disease LBBB (left bundle branch block) Other left bundle branch block HFrEF (heart failure with reduced ejection fraction) Family history of premature CAD Family history of ischemic heart disease documented in this encounter Care Teams Sleeping Car Porter Relationship Specialty Start Date End Date Moise Lala MD PCP - General Family Medicine 06/26/17 02/15/24 documented as of this encounter
--- OUTSIDE RECORDS SUMMARY | 2024-07-01 12:45 | XMS_ITS | Encounter Summary ---
Author Organization [facility] [place] [address] Care Team Providers Care Certified Composites Technician Name Role Phone Moise Lala MD Primary Care Provider [phone] Encounter Details Date Type Department Care Team (Late st Contact Info) Description 07/25/2023 Episode [place] [address] Stan Hassan MD [facility] [place] [address] Social History Tobacco Use Types Packs/Day Years [...] filedocumented in this encounter Care Teams Certified Composites Technician Relationship Specialty Start Date End Date Moise Lala MD PCP - General Family Medicine 06/26/17 02/15/24 documented as of this encounter
--- OUTSIDE RECORDS SUMMARY | 2024-07-01 12:45 | XMS_ITS | Encounter Summary ---
[place] [address] Care Team Providers Care Operations Supervisor Chemical Cleaning Name Role Phone Moise Lala MD Primary Care Provider [phone] Encounter Details Date Type Department Care Team (Late st Contact Info) Description 06/09/2023 Telephone [place] [phone] Shantell Franco Social History Tobacco Use Types [...] - 06/09/2023 12:25 PM EST Nikia Denton [phone] Diagnosis/Indication: elevated gastrin, net spot with diffuse [...] relation to your upcoming scheduled procedure? Yes [facility] Card[facility] for Cardiomyopathy, LBBB; IB sent to Cardiology for Cardiac Clearance; SEE IRRIGATOR SPRINKLING SYSTEM NOTE IN ORDER FOR DH CARDIAC CLEARANCE You must have a responsible green party who will drive you to your procedure, stay on campus for the entire duration of your procedure, and drive you home from your procedure. Who will likely be your class a truck driver for the procedure? Please Verify [...] on filedocumented in this encounter Care Teams Operations Supervisor Chemical Cleaning Relationship Specialty Start Date End Date Moise Lala MD PCP - General Family Medicine 06/26/17 02/15/24 documented as of this encounter
--- OUTSIDE RECORDS SUMMARY | 2024-07-01 12:45 | XMS_ITS | Encounter Summary ---
Author Organization [facility] [place] [address] Care Team Providers Care Store Promoter Name Role Phone Moise Lala MD Primary Care Provider [phone] Reason for Referral * Diagnostic Test (Routine) - Closed Specialty Diagnoses / Procedures Referred By Contac t Referred To Contact Radiology Diagnoses Diarrhea, unspecified type Elevated gastrin level Procedures NM PET CT Neuroendocrine (DETECTNET) Ana Maria Zacarias MD [facility] [place] [address] [place] [address] Referral ID Status Reason Start Date Expiration Date V isits Requested Visits Authorized [id number] Closed Specialty Service Requested 04/11/2023 10/09/2024 1 1 Encounter Details Date Type Department Care Team (Late st Contact Info) Description 04/11/2023 Telephone [place] [address] Ana Maria Zacarias MD [facility] [place] [address] Social History Tobacco Use Types [...] resident's interpretation and agree with the findings, Flroentin Kitchen MD at 05/16/2023 3:11 PM Thank you for letting us participate in the care of this patient. ??If you are a health care provider and have any questions regarding this report, please contact the number below. ??For patients who have questions please contact the health school child care attendant that requested your imaging first. ? Electronically signed by: Florentin Kitchen MD, [facility] ([phone]), at 05/16/2023 3:11 PM Narrative 05/16/2023 3:11 [...] patients who have questions please contactthe health school child care attendant that requested your imaging first. Electronically signed by: Florentin Kitchen MD, [facility]([phone]), at 05/16/2023 3:11 PM Ana Maria Zacarias MD IMG PET ORDERABLES documented in this encounter Visit Diagnoses Diagnosis Diarrhea, unspecified type Elevated gastrin level Abnormality of secretion of gastrin Diarrhea, unspecified type Elevated gastrin level Abnormality of secretion of gastrin documented in this encounter Care Teams Store Promoter Relationship Specialty Start Date End Date Moise Lala MD PCP - General Family Medicine 06/26/17 02/15/24 documented as of this encounter
--- OUTSIDE RECORDS SUMMARY | 2024-07-01 12:45 | XMS_ITS | Encounter Summary ---
Author Organization [facility] [place] [address] Care Team Providers Care Front Office Medical Assistant Name Role Phone Moise Lala MD Primary Care Provider [phone] Encounter Details Date Type Department Care Team (Late st Contact Info) Description 05/30/2023 Orders [place] [address] Ana Maria Zacarias MD [facility] [place] [address] Elevated gastrin level Social History Tobacco Use [...] gastrin documented in this encounter Care Teams Front Office Medical Assistant Relationship Specialty Start Date End Date Moise Lala MD PCP - General Family Medicine 06/26/17 02/15/24 documented as of this encounter
--- OUTSIDE RECORDS SUMMARY | 2024-07-01 12:45 | XMS_ITS | Encounter Summary ---
Author Organization [facility] [place] [address] Care Team Providers Care Plow Mechanic Name Role Phone Moise Lala MD Primary Care Provider [phone] Reason for Visit * Auth/Cert (Routine) Specialty [...] 2.09) Thomas Hawthorne MD [address] [place] [address] [facility] Referral ID Status Reason Start Date Expiration Date Visits Re quested Visits Authorized [id number] 1 1 Encounter Details Date Type Department Care Team (Late st Contact Info) Description 06/23/2023 9:30 AM EST - 06/23/2023 10:00 AM EST Surgery [place] [address] Thomas Hawthorne MD [address] [place] [address] EGD WITH BIOPSY (WRVU 2.39) [...] the day after the procedure, use an msto-yhu-kqbqahq spray to numb your throat. Sucking on [...] occurs, please contact your Doctor. Please call [phone] before 8pm Mon-Fri with problems, questions or concerns. If you call after 8pm or on weekends, call the Hospital at [phone] and ask to speak to the [employer] cisco unified communications engineer and the wet crown blocking operator will contact that person for you. When should you call for help? Call 666 anytime you think you may need emergency [...] any problems. Where can you learn more? [facility] View your After Visit Summary and more online at [email or web address] If you would like to provide feedback about your hospital experience, please call the Office of Patient and Family Relations at . If you have received this After Visit Summary in error, please immediately return it in person to the department, or notify the [facility] Privacy Office by calling toll free at between the hours of 8AM and 5PM to arrange for our retrieval of the documents at no cost to you. Content Version: 12.2 ?? [id number] [employer]. Care instructions adapted under license by [facility]. If you have questions about a medical condition or this instruction, always ask your healthcare professional. [employer] disclaims any warranty or liability for your [...] 9:57 AM EST Upper Gi Endoscopy, Biopsy ([id number]) 06/23/2023 9:40 AM EST Elevated gastrin level UPPER GI ENDOSCOPY Routine 06/23/2023 9: 21 AM EST POCT GLUCOSE Routine 06/23/2023 8:57 AM EST documented in this encounter Results * Surgical Pathology Report (06/23/2023 9:57 AM EST) Final Diagnosis [id number] ? Location: ; 07; A The signing [...] Verified: ??07/01/2023 9:20 ?? Pathologist Performed at: ??[place], [place] [address] Em Physician: Maxine [place] MD, FCAP, ??CLIA Certificate: [id number] ADDITIONAL STUDIES Immunohistochemistry Studies: Formalin-fixed, paraffin-embedded tissue [...] labeled E1. ??ajw 07/01/2023 9:20 AM EST [facility] GI Biopsy 06/23/2023 9:57 AM EST 06/23/2023 9:57 AM EST GI Biopsy 06/23/2023 9:57 AM EST 06/23/2023 9:57 AM EST GI Biopsy 06/23/2023 9:57 AM EST 06/23/2023 9:57 AM EST GI Biopsy 06/23/2023 9:57 AM EST 06/23/2023 9:57 AM EST GI Biopsy 06/23/2023 9:57 AM EST 06/23/2023 9:57 AM EST Thomas Hawthorne MD PATHOLOGY/CYTOLOGY ORDERABLES [facility] [place] [address] [facility] [place] [address] * Specimen to Pathology (06/23/2023 9:57 AM EST) AP Specimen 06/23/2023 9:57 AM EST 06/23/2023 9:57 AM EST Narrative [facility] - 06/23/2023 9:57 AM EST Specimen requisition ordered. ??Separate Pathology report to follow Thomas Hawthorne MD PATHOLOGY/CYTOLOGY ORDERABLES Performing Organization Address City/[facility] [place] [address] * Specimen to Pathology (06/23/2023 9:57 AM EST) AP Specimen 06/23/2023 9:57 AM EST 06/23/2023 9:57 AM EST Narrative [facility] - 06/23/2023 9:57 AM EST Specimen requisition ordered. ??Separate Pathology report to follow Thomas Hawthorne MD PATHOLOGY/CYTOLOGY ORDERABLES Performing Organization Address [facility] [place] [address] * Specimen to Pathology (06/23/2023 9:57 AM EST) AP Specimen 06/23/2023 9:57 AM EST 06/23/2023 9:57 AM EST Narrative [facility] - 06/23/2023 9:57 AM EST Specimen requisition ordered. ??Separate Pathology report to follow Thomas Hawthorne MD PATHOLOGY/CYTOLOGY ORDERABLES Performing Organization Address [facility] [place] [address] * Specimen to Pathology (06/23/2023 9:57 AM EST) AP Specimen 06/23/2023 9:57 AM EST 06/23/2023 9:57 AM EST Narrative [facility] - 06/23/2023 9:57 AM EST Specimen requisition ordered. ??Separate Pathology report to follow Thomas Hawthorne MD PATHOLOGY/CYTOLOGY ORDERABLES Performing Organization Address City/[facility] Co de Phone Number [facility] [place] [address] * Specimen to Pathology (06/23/2023 9:57 AM EST) AP Specimen 06/23/2023 9:57 AM EST 06/23/2023 9:57 AM EST Narrative [facility] - 06/23/2023 9:57 AM EST Specimen requisition ordered. ??Separate Pathology report to follow Thomas Hawthorne MD PATHOLOGY/CYTOLOGY ORDERABLES Performing Organization Address City/State/[facility] Co de Phone Number [facility] [place] [address] * UPPER GI ENDOSCOPY (06/23/2023 9:21 AM EST) UPPER GI ENDOSCOPY [facility] Endoscopy Procedure Date: 06/23/2023 9:21 AM ? Patient Name: Nikia Denton ? N: [id number] ? Date of : 1965 ? Age: 57 ? Order #: [id number] ? Instrument Name: [id number] ? Procedure: ? Upper GI endoscopy Indications: ? Chronic diarrhea, elevated ? gastrin/chromogranin levels, ? diffuse gastric uptake on NetSpot Providers: ? Thomas Hawthorne, Alcon Rodriguez, ? RN, Janelle Brewer, Hospital Pharmacy Technician Referring MD: ?Ana Maria Mcgarry Medicines: ? [...] the ? physician, the nurse, the ? fermentation manager and the coffee machine technician. The ? procedure was verified in [...] care under ? the supervision of a SPECIAL EDUCATION PARAEDUCATOR was ? determined to be medically ? [...] Glucose, POC 116 65 - 199 mg/dL [facility] Comment: Supplemental ranges: <140 mg/dL before meals <180 mg/dL all other times of the day Blood 06/23/2023 8:57 AM EST 06/23/2023 8:57 AM EST Thomas Hawthorne MD POINT OF CARE TEST ORDERABLES Performing Organization Address City/[facility]/ZIP Co de Phone Number [facility] [place] [address] documented in this encounter Visit Diagnoses Diagnosis [...] CRNA) documented in this encounter Care Teams Plow Mechanic Relationship Specialty Start Date End Date Moise Lala MD PCP - General Family Medicine 06/26/17 02/15/24 documented as of this encounter
--- OUTSIDE RECORDS SUMMARY | 2024-07-01 12:45 | XMS_ITS | Encounter Summary ---
Author Organization [facility] [place] [address] Care Team Providers Care Retail Loan Officer Name Role Phone Moise Lala MD Primary Care Provider [phone] Encounter Details Date Type Department Care Team (Latest Contact Info) Description 08/21/2023 3:30 PM EDT TH Visit (TeleHealth) [place] [id number] Ana Maria Zacarias MD [facility] [place] [address] Diarrhea, unspecified type; Metabolic dysfunction-associat ed steatotic [...] this encounter Progress Notes * Ana Maria Zacarisa MD - 08/21/2023 3:30 PM EDT GASTROENTEROLOGY TELEMEDICINE PROGRAM - ESTABLISHED PATIENT VISIT Chief Complaint: Nikia Denton is a [address] Lala here for follow-up of [facility]. Detailed history: #[facility] Liver Fibrosis Score (Fib 4) was 0.84 at 08/21/2023 3:30 PM Risk of Fibrosis Low Intermediate High NAFLD Less than 1.3 1.3-2.67 Greater than 2.67 Hepatitis C Less than 1.45 1.45-3.25 Greater than 3.25 #IBS-D - HPI 04/08/2023 Diarrhea since her cholecystectomy and ERCP 2 years intermittently. She reports diarrhea occurs a few times per weeks, 5-7 BM, [place] type 7, without blood, bright yellow. She [...] mg/dL Final UPPER GI ENDOSCOPY 06/23/2023 Final Value:[facility] Endoscopy Procedure Date: 06/23/2023 9:21 AM Patient Name: Nikia Denton Date of : 1965 Age: 57 Order #: [id number] Instrument Name: [id number] Procedure: Upper GI endoscopy Indications: Chronic diarrhea, elevated gastrin/chromogranin levels, diffuse gastric uptake on NetSpot Providers: Alcon Cabral RN, Janelle Brewer, Track Inspector Referring MD: Ana Maria Mcgarry Medicines: [...] procedure by the physician, the nurse, the edging catcher and the combination technician. The procedure was verified in the pre-procedure area in the endoscopy suite. - Pre-procedure physical examination revealed no contraindications to sedation. - ASA Grade Assessment: III - A patient with severe systemic disease. - After reviewing the risks and benefits, the patient was deemed in satisfactory condition to undergo the procedure. - Monitored anesthesia care under the supervision of a WELL LOGGING CAPTAIN MUD ANALYSIS was determined to be medically necessa ry [...] 9:21 AM Surgical Pathology Report 06/23/2023 Final Value:[id number] Location: 4T; EA07; A The signing pathologist [...] MD Verified: 07/01/2023 9:20 Pathologist Performed at: -[facility] Dept. of Pathology, [place] [address] Yarn Sizer: Maxine [place] MD, FCAP, [place] Certificate: [id number] ADDITIONAL STUDIES Immunohistochemistry Studies: Formalin-fixed, paraffin-embedded tissue [...] telemedicine visit. The patient was located in [place] at the time of their visit. Approximate time in review of records and documentation 10 minutes. Approximate total time devoted to this single encounter on the day of the encounter: 30 minutes Ana Maria Zacarias MD [facility] [place] [address] documented in this encounter Plan of Treatment Not on file documented as of this encounter Visit Diagnoses Diagnosis Diarrhea, unspecified type Metabolic dysfunction-associated steatotic liver disease (MASLD) documented in this encounter Care Teams Retail Loan Officer Relationship Specialty Start Date End Date Moise Lala MD PCP - General Family Medicine 06/26/17 02/15/24 documented as of this encounter
--- OUTSIDE RECORDS SUMMARY | 2024-07-01 12:45 | XMS_ITS | Encounter Summary ---
[place] [address] Care Team Providers Care Major Assembly Inspector Name Role Phone Moise Lala MD Primary Care Provider [phone] Encounter Details Date Type Department Care Team [...] on filedocumented in this encounter Care Teams Major Assembly Inspector Relationship Specialty Start Date End Date Moise Lala MD PCP - General Family Medicine 06/26/17 02/15/24 documented as of this encounter
--- OUTSIDE RECORDS SUMMARY | 2024-07-01 12:45 | XMS_ITS | Encounter Summary ---
[place] [address] Care Team Providers Care Cable Armorer Name Role Phone Moise Lala MD Primary Care Provider [phone] Encounter Details Date Type Department Care Team (Latest Contact Info) Description 04/16/2023 9:20 AM EST Laboratory Appointment Lab [address] [place] [address] HFrEF (heart failure with reduced [...] reduced ejection fraction) HC DNA AB DS ([place]) Routine 04/16/2023 9:19 AM EST HFrEF (heart [...] Protein, Urine 14(H) 0 - 12 mg/dL [facility] U Albumin 38 % total [facility] Globulin, Urine 62 % total [facility] M1 Band, Urine None Detected [facility] UPEP Comments See Note [facility] Comment: There is no evidence of clonal free light chains in this patient's urine sample. Urine 04/16/2023 9:30 AM EST 04/16/2023 9:39 AM EST Narrative Resulting Agency Comment Spec In Lab Giselle Nelson MD URINE ORDERABLES [facility] [place] [address] * (ABNORMAL) Comprehensive metabolic panel (non-fasting) (04/16/2023 9:19 AM EST) Glucose 148 65 - 199 mg/dL [facility] Comment:Diabetes: >=200 mg/d L plus symptoms Blood Urea Nitrogen 16 8 - 18 mg/dL [facility] Creatinine 0.67(L) 0.70 - 1.20 mg/dL [facility] Sodium 139 135 - 145 mmol/L [facility] Potassium 4.0 3.5 - 5.0 mmol/L [facility] Comment: Please note: ??Patients with WBC >100,000 may have falsely elevated Potassium levels. ??For accurate Potassium quantification in these patients send serum separator tube (gold top) for subsequent determinations. ??Contact the Clinical Chemistry Laboratory if there are any questions. Chloride 101 98 - 107 mmol/L [facility] Carbon Dioxide 23 22 - 31 mmol/L [facility] Anion Gap 15 5 - 15 mmol/L [facility] Calcium 9.4 8.5 - 10.5 mg/dL [facility] Protein, Total 7.0 6.1 - 8.0 g/dL [facility] Albumin 4.4 3.2 - 5.2 g/dL [facility] Aspartate Aminotransferase 19 0 - 30 unit/L [facility] Alanine Aminotransferase 27 0 - 30 unit/L [facility] Alkaline Phosphatase 152(H) 35 - 105 unit/L [facility] Bilirubin, Total 0.3 0.2 - 1.3 mg/dL [facility] Est Glomerular Filtration Rate 103 >=60 mL/min/1. 73 m?? [facility] Comment: This patient's estimated GFR [...] Resulting Agency Comment Spec In Lab Giselle eNlson MD CHEMISTRY ORDERAB LES Performing Organization Address City/[facility] Co de Phone Number [facility] [place] [address] * pro-Brain Natriuretic Peptide (04/16/2023 9:19 AM EST) NT-proBNP 58 <=124 pg/mL [facility] Blood 04/16/2023 9:19 AM EST 04/16/2023 9:29 AM EST Narrative Resulting Agency Comment Spec In Lab Giselle Nelson MD CHEMISTRY ORDERAB LES Performing Organization Address [facility] Co de Phone Number [facility] [place] [address] * Lipid Panel (Reflex Direct LDL) (04/16/2023 9:19 AM EST) Cholesterol, Total 180 mg/dL [facility] Comment: Lower Risk: <200 mg/dL Average Risk: 200-239 mg/dL Higher Risk: >tu=612 mg/dL Triglyceride 165 mg/dL [facility] Comment: Average Risk/Lower Risk: <150 mg/dL Borderline High Risk: 150-199 mg/dL High Risk: 200-499 mg/dL Very High Risk: >hf=459 mg/dL HDL Cholesterol 50 mg/dL [facility] Comment: Males: ?? Higher Risk: <40 mg/dL Females: ?? Higher Risk: <50 mg/dL LDL Cholesterol 97 mg/dL [facility] Comment: Lowest Risk: <100 mg/dL Lower Risk: 100-129 mg/dL Borderline High Risk: 130-159 mg/dL High Risk: 160-189 mg/dL Very High Risk: >xy=262 mg/dL Cholesterol/HDL Ratio 3.6 ratio [facility] Lipid Interpretation See Note [facility] Comment: Lipid management should be guided by a patient? s ASCVD risk, goals and preferences. ACC/AHA Guidelines recommend high intensity statin if clinical ASCVD or LDL greater than or equal to 190 mg/dL. http://Bitbrains.com/MZH-NYA-Tnsvwbcvy Adults aged 40-75 with LDL 70-189 mg/dL should have their 10 year ASCVD risk estimated with the ACC/AHA ASCVD risk fabric and accessories estimator http://tools.acc.org/NPSIR-Qmyg-Tybouwqww/ Statin should be discussed if risk greater [...] MD CHEMISTRY ORDERAB LES Performing Organization Address City/State/[facility] Co de Phone Number [facility] [place] [address] * (ABNORMAL) Hemoglobin A1c (04/16/2023 9:19 AM EST) Hemoglobin A1c 7.7(H) 4.3 - 5.6 % [facility] Comment: Reference Range: 4.3 - [...] Mellitus, Diabetes Care 2013; 36: Suppl. 1, A24-28 Estimated Average Glucose 173 mg/dL [facility] Comment: Note: The eAG calculation has not been proven valid for women, individuals below 18 years old or above 70 years old, or individuals with hemoglobinopathies. Estimated average glucose (eAG) is calculated from the equation described in: Diallo LEWIS, Tish J, Waqas R, et al. ??Translating the A1C assay into estimated average glucose values. ??Diabetes Care 2008:31(8):8313-9265. Additional resources are available on the ADA website (diabetes.org). Blood 04/16/2023 9:19 AM EST 04/16/2023 9:29 AM EST Narrative Resulting Agency Comment Spec In Lab Giselle Nelson MD CHEMISTRY ORDERAB LES Performing Organization Address City/[facility] Co de Phone Number [facility] [place] [address] * (ABNORMAL) Iron and TIBC (04/16/2023 9:19 AM EST) Iron 53 30 - 150 mcg/dL [facility] TIBC 442 250 - 450 mcg/dL [facility] Iron Saturation 12(L) 20 - 50 % [facility] Blood 04/16/2023 9:19 AM EST 04/16/2023 9:29 AM EST Narrative Resulting Agency Comment Spec In Lab Giselle Nelson MD CHEMISTRY ORDERAB LES Performing Organization Address [facility] Co de Phone Number [facility] [place] [address] * (ABNORMAL) Ferritin (04/16/2023 9:19 AM EST) Ferritin 13(L) 30 - 400 ng/mL [facility] Comment: Pediatric reference ranges not verified at [facility] interpret with caution. Reference ranges for females greater than 50 years of age approach values for men, i.e., 30-400 ng/mL. Blood 04/16/2023 9:19 AM EST 04/16/2023 9:29 AM EST Narrative Resulting Agency Comment Spec In Lab Giselle Nelson MD CHEMISTRY ORDERAB LES Performing Organization Address [facility] Co de Phone Number [facility] [place] [address] * Protein Electrophoresis, serum (04/16/2023 9:19 AM EST) Total Prot Electrophoresis 6.8 6.1 - 8.0 g/dL [facility] Albumin Electrophoresis 4.02 3.20 - 5.20 g/dL [facility] Alpha 1 Globulin 0.24 0.10 - 0.30 g/dL [facility] Alpha 2 Globulin 0.88 0.40 - 0.90 g/dL [facility] Beta Globulin 0.90 0.50 - 1.00 g/dL [facility] Gamma Globulin 0.77 0.50 - 1.30 g/dL [facility] M1 Band None Detected None Detected [facility] Blood 04/16/2023 9:19 AM EST 04/16/2023 9:29 AM EST Narrative Resulting Agency Comment Spec In Lab Giselle Nelson MD CHEMISTRY ORDERAB LES Performing Organization Address City/[facility] Co de Phone Number [facility] [place] [address] * Free Light Chains, Serum (04/16/2023 9:19 AM EST) [place] Free Light Chain 2.28 0.72 - 2.75 mg/dL [facility] Lambda Free Light Chain 1.72 0.57 - 2.15 mg/dL [facility] [place]/Lambda FLC Ratio 1.3256 0.4000 - 2.5800 [facility] Blood 04/16/2023 9:19 AM EST 04/16/2023 9:29 AM EST Narrative Resulting Agency Comment Spec In Lab Giselle Nelson MD CHEMISTRY ORDERAB LES Performing Organization Address City/[facility] Co de Phone Number [facility] [place] [address] * TSH [place] (04/16/2023 9:19 AM EST) Thyroid Stimulating Hormone 1.66 0.27 - 4.20 mcIU/mL [facility] Comment: Reference Interval (mcIU/mL): Females: ??First Trimester: 0.23-3.88 ??Second Trimester: 0.22-3.90 ??Third Trimester: 0.44-4.66 Blood 04/16/2023 9:19 AM EST 04/16/2023 9:29 AM EST Narrative Resulting Agency Comment Spec In Lab Giselle Nelson MD CHEMISTRY ORDERAB LES [facility] [place] [address] * FRANCES Antibody Screen (04/16/2023 9:19 AM EST) FRANCES Ab Screen Negative Negative [facility] Comment: This antinuclear antibody (FRANCES) screen is a qualitative test performed using a fluoroenzyme immunoassay on the [employer] Therapydia 250 analyzer. This screen is designed to [...] performed by the Special Chemistry Laboratory at [facility]. This change in testing location is associated with a change is testing method and reference intervals. Please review the results of this test in association with the posted reference intervals. dsDNA Ab 1.0 <=15.0 IU/mL [facility] Comment: <10 negative [...] performed by the Special Chemistry Laboratory at [facility]. This change in testing location is associated with a change is testing method and reference intervals. Please review the results of this test in association with the posted reference intervals. Blood 04/16/2023 9:19 AM EST 04/16/2023 10:44 AM EST Narrative Resulting Agency Comment Spec In Lab Giselle Nelson MD LAB SEND OUT ORDE RABLES Performing Organization Address City/[facility] Co de Phone Number [facility] [place] [address] * Rheumatoid factor, quant (04/16/2023 9:19 AM EST) Rheumatoid Factor <10 <=14 IU/mL [facility] Blood 04/16/2023 9:19 AM EST 04/16/2023 9:29 AM EST Narrative Resulting Agency Comment Spec In Lab Giselle Nelson MD CHEMISTRY ORDERAB LES Performing Organization Address [facility] Co de Phone Number [facility] [place] [address] documented in this encounter Visit Diagnoses Diagnosis HFrEF (heart failure with reduced ejection fraction) documented in this encounter Care Teams Cable Armorer Relationship Specialty Start Date End Date Moise Lala MD PCP - General Family Medicine 06/26/17 02/15/24 documented as of this encounter
--- OUTSIDE RECORDS SUMMARY | 2024-07-01 12:45 | XMS_ITS | Encounter Summary ---
Author Organization [facility] [place] [address] Care Team Providers Care Drive Away Driver Name Role Phone Moise Lala MD Primary Care Provider Reason for Visit * Auth/Cert (Routine) Specialty [...] 2.09) Thomas Hawthorne MD [address] [place] [address] [facility] Referral ID Status Reason Start Date Expiration Date Visits Re quested Visits Authorized [id number] 1 1 Encounter Details Date Type Department Care Team (Late st Contact Info) Description 06/23/2023 9:42 AM EST Anesthesia [place] [address] Kaya Cha MD [facility] [place] [address] Anesthesia Record Procedure Summary Procedure Name Responsible [...] 0750; metacarpal vein (top of hand), right; tqoa-tpx-efjtda catheter system; 22 gauge; intradermal injection; LDA [...] by Sonia Duran RN PIV 06/23/23; 0859; thtx-zgg-fpxgcr catheter system; 22 gauge; metacarpal vein (top [...] Procedure Summary Date: 06/23/23 Room / Location: [facility] / [facility] Anesthesia Start: 941 Anesthesia Stop: 999 Procedure: EGD WITH BIOPSY (WRVU 2.39) (Trunk) Diagnosis: Elevated gastrin level (elevated gastrin, net spot with diffuse uptake (rads does not think cancer), bx stomach (?atrophicgastritis)) Surgeons: Thomas Hawthorne MD Responsible Provider: Kaya Cha MD Anesthesia Type: MAC ASA Status: 3 All Anesthesia Providers: Anesthesiologist: Kaya Cha MD GOVERNMENT AFFAIRS DIRECTOR: Alexis Pemberton CRNA Vitals Value Taken Time BP 104/68 06/23/23 1020 Temp Pulse Resp 9 06/23/23 1020 SpO2 98 % 06/23/23 1022 Pain Level 0 06/23/23 1020 Vitals shown include unfiled device data. Patient Location: PACU/[facility] Level of Consciousness: Conscious but Sleepy [...] 2.23) performed by Kody Toth MD at [facility] ??? PRO ENDOSCOPIC US EXAM, ESOPH N/A 11/07/2021 UPPER EUS- ENDOSCOPIC ULTRASOUND performed by Guillermo Omer MD at [facility] ??? PRO ERCP, SPHINCTEROTOMY N/A 11/07/2021 ERCP W/SPHINCTEROTOMY/PAPILLOTOMY performed by Guillermo Omer MD at [facility] ??? PRO ERCP, W/REMOVAL STONE, PEDRO/PANCR DUCTS 11/07/2021 ERCP W/REMOVAL CALCULI/DEBRIS FROM BILARY/PANCREATIC DUCT(S) performed by Guillermo Omer MD at [facility] ? ? PRO LAPAROSCOPY W TOT HYSTERECTUTERUS <=250 GRAM W TUBE/OVARY N/A 08/19/2017 LAPAROSCOPY, TOTAL HYST, UTERUS<250GMS, REM TUBE &/OR OVARY (WRVU 15) performed by Kody Toth MD at [facility] Social History Tobacco Use [...] risks discussed with patient. Plan discussed with GOVERNMENT AFFAIRS DIRECTOR and attending. Anesthesia Screening documented in this [...] mg documented in this encounter Care Teams Drive Away Driver Relationship Specialty Start Date End Date Moise Lala MD PCP - General Family Medicine 06/26/17 02/15/24 documented as of this encounter
--- OUTSIDE RECORDS SUMMARY | 2024-07-01 12:45 | XMS_ITS | Encounter Summary ---
[facility] Organization [facility] [place] [address] Care Team Providers Care Manager Fine Name Role Phone Twan Pruitt Primary Care Provider + Reason for Referral * Diagnostic Test (Routine) - Closed Specialty Diagnoses / Procedures Referred By Contac t Referred To Contact Radiology Diagnoses HFrEF (heart failure with reduced ejection fraction) Family history of premature CAD Procedures MRI Cardiac Morphology Function and Stress wwo Contrast Shane Romano MD [facility] [place] [address] [place] [address] Referral ID Status Reason Start Date Expiration Date V isits Requested Visits Authorized [id number] Closed Specialty Service Requested 04/16/2023 10/14/2024 1 1 Reason for Visit * Diagnostic Test (Routine) - Closed Specialty Diagnoses / Procedures Referred By Contac t Referred To Contact Radiology Diagnoses HFrEF (heart failure with reduced ejection fraction) Family history of premature CAD Procedures MRI Cardiac Morphology Function and Stress wwo Contrast Shane Romano MD [facility] [place] [address] [place] [address] Referral ID Status Reason Start Date Expiration Date V isits Requested Visits Authorized [id number] Closed Specialty Service Requested 04/16/2023 10/14/2024 1 1 Encounter Details Date Type Department Care Team (Late st Contact Info) Description 02/16/2024 8:41 AM EDT - 02/16/2024 11:59 PM EDT Hospital Encounter [facility] [place] [address] Giselle Nelson MD LBBB (left bundle branch [...] Stress wwo Contrast (02/16/2024 11:32 AM EDT) [employer] WORKSTATION ID [id number] DH RAD Anatomical Region Laterality Modality Chest, [...] who have questions please contact the health customer care specialist that requested your imaging first. ? Electronically signed by: Jp Schofield MD, [facility] ([phone]), at 02/16/2024 11:59 AM Narrative 02/16/2024 11:59 [...] previous infarct or resting myocardial ischemia. TI Search Director: TI Search Director demonstrates normal nulling patterns. Delayed enhancement: Delayed [...] suggest previous infarct or resting myocardialischemia. TI Search Director: TI Search Director demonstrates normal nulling patterns. Delayed enhancement: Delayed [...] patients who have questions please contactthe health customer care specialist that requested your imaging first. Electronically signed by: Jp Schofield MD, [facility]([phone]), at 02/16/2024 11:59 AM Giselle Nelson MD IMG MRI ORDERABLE S * EKG 12 Lead (02/16/2024 9:58 AM EDT) Ventricular rate 77 BPM MUSE SYSTEM Atrial Rate 77 BPM MUSE SYSTEM P-R Interval 174 ms MUSE SYSTEM QRS Duration 158 ms MUSE SYSTEM Q-T Interval 432 ms MUSE SYSTEM QTC Calculated (Bezet) 488 ms MUSE SYSTEM Calculated P [place] 55 degrees MUSE SYSTEM Calculated R [place] 16 degrees MUSE SYSTEM Calculated T [place] 141 degrees MUSE SYSTEM INTERPRETATION Normal sinus [...] mLs documented in this encounter Care Teams Manager Fine Relationship Specialty Start Date End Date Twan Pruitt PA [facility] [place] [address] PCP - General Internal Medicine 02/16/24 documented as of this encounter
--- OUTSIDE RECORDS SUMMARY | 2024-07-01 12:45 | XMS_ITS | Clinical Summary ---
Author Organization [facility] Address [facility] [place] [address] Care Team Providers Care Scientific Informatics Analyst Name Role Phone Twan Pruitt Primary Care [...] reduced ejection fraction) HIV SCREEN, 4TH GENERATION ([facility]/CGP/APD/NLH)PE RFORMABLE Routine 04/08/2023 10:57 AM EST Elevated liver enzymes HEPATITIS C ANTIBODY Routine 04/08/2023 10:57 AM EST Elevated liver enzymes from Last 3 Months or Most Recently Relevant to Health Maintenance Results * (ABNORMAL) Basic Metabolic Panel Non-fasting (03/02/2024 9:06 AM EDT) Glucose 207(H) 65 - 199 mg/dL 03/02/2024 11:34 AM EDT [facility] Comment:Glucose Concentratio n >=200 mg/dL plus symptoms is consistent with Diabetes Mellitus. Blood Urea Nitrogen 19(H) 8 - 18 mg/dL 03/02/2024 11:34 AM [facility] Creatinine 0.64(L) 0.70 - 1.20 mg/dL 03/02/2024 11:34 AM [facility] Sodium 138 135 - 145 mMol/L 03/02/2024 11:34 AM [facility] Potassium 4.4 3.5 - 5.0 mMol/L 03/02/2024 11:34 AM [facility] Chloride 100 98 - 107 mMol/L 03/02/2024 11:34 AM [facility] Carbon Dioxide 25 22 - 31 mMol/L 03/02/2024 11:34 AM [facility] Anion Gap 13 5 - 15 mMol/L 03/02/2024 11:34 AM [facility] Calcium 9.5 8.5 - 10.5 mg/dL 03/02/2024 11:34 AM [facility] Est Glomerular Filtration Rate - Female 103 mL/min/1. 73 m?? 03/02/2024 11:34 AM [facility] Comment: This patient's estimated GFR was [...] Foundation Fasting Status No 03/02/2024 11:34 AM [facility] Blood VENOUS BLOOD SPECIMEN / Unknown Venipuncture / Unknown 03/02/2024 9:06 AM EDT 03/02/2024 9:06 AM EDT Malvin Russo BLANCA CHEMISTRY ORDERABLE S [facility] [place] [address] * Hepatitis C Antibody (04/08/2023 10:57 AM EST) Hepatitis C Antibody Negative Negative [facility] Blood 04/08/2023 10:5 7 AM EST 04/08/2023 11:02 AM EST Narrative Resulting Agency Comment Spec In Lab Ana Maria Zacarias MD CHEMISTRY ORDERABLES Performing Organization Address City/[facility]/ZIP Co de Phone Number [facility] [place] [address] * HIV Screen, 4th Generation ([facility]/CGP/APD/NLH) (04/08/2023 10:57 AM EST) HIV Ab/Ag Screen Negative Negative [facility] Comment: This 4th Generation HIV [...] HIV Comment Low Risk of HIV Infection [facility] Blood 04/08/2023 10:5 7 AM EST 04/08/2023 11:02 AM EST Narrative Resulting Agency Comment Spec In Lab Ana Maria Zacarias MD CHEMISTRY ORDERABLES [facility] [place] [address] from Last 3 Months or Most Recently [...] capacity to make decision: Yes Care Teams Scientific Informatics Analyst Relationship Specialty Start Date End Date Twan Pruitt [place] [facility] [place] [address] PCP - General Internal Medicine 02/16/24
--- OUTSIDE RECORDS SUMMARY | 2024-07-01 12:45 | XMS_ITS | Encounter Summary ---
[place] [address] Care Team Providers Care Presales Consultant Name Role Phone Moise Lala MD Primary Care Provider [phone] Encounter Details Date Type Department Care Team [...] on filedocumented in this encounter Care Teams Presales Consultant Relationship Specialty Start Date End Date Moise Lala MD PCP - General Family Medicine 06/26/17 02/15/24 documented as of this encounter
--- OUTSIDE RECORDS SUMMARY | 2024-07-01 12:45 | XMS_ITS | Encounter Summary ---
[facility] [place] [address] Care Team Providers Care Institutional Aide Name Role Phone Twan Pruitt Primary Care [...] on filedocumented in this encounter Care Teams Institutional Aide Relationship Specialty Start Date End Date [place] [address] PCP - General Internal Medicine 02/16/24 documented as of this encounter
--- OUTSIDE RECORDS SUMMARY | 2024-07-01 12:45 | XMS_ITS | Encounter Summary ---
Author Organization [facility] [place] [address] Care Team Providers Care Pole Truck Driver Name Role Phone Moise Lala MD Primary Care Provider [phone] Reason for Visit * Auth/Cert (Routine) Specialty [...] 2.09) Thomas Hawthorne MD [address] [place] [address] [facility] Referral ID Status Reason Start Date Expiration Date Visits Re quested Visits Authorized [id number] 1 1 Encounter Details Date Type Department Care Team (Latest Contact Info) Description 06/23/2023 8:31 AM EST - 06/23/2023 10:36 AM EST Hospital En[place] [address] Thomas Hawthorne MD [address] [place] [address] Discharge Disposition: Home Social History [...] the day after the procedure, use an wstv-swh-evjkari spray to numb your throat. Sucking on [...] occurs, please contact your Doctor. Please call [phone] before 8pm Mon-Fri with problems, questions or concerns. If you call after 8pm or on weekends, call the Hospital at [phone] and ask to speak to the Natural Resource Technician patient companion and the fiber drier operator will contact that person for you. When should you call for help? Call [phone] anytime you think you may need emergency [...] any problems. Where can you learn more? [facility] View your After Visit Summary and more online at [email or web address] If you would like to provide feedback about your hospital experience, please call the Office of Patient and Family Relations at . If you have received this After Visit Summary in error, please immediately return it in person to the department, or notify the [facility] Privacy Office by calling toll free at between the hours of 8AM and 5PM to arrange for our retrieval of the documents at no cost to you. Content Version: 12.2 ?? [id number] [employer]. Care instructions adapted under license by [facility]. If you have questions about a medical condition or this instruction, always ask your healthcare professional. [employer] disclaims any warranty or liability for your [...] 9:57 AM EST Upper Gi Endoscopy, Biopsy ([id number]) 06/23/2023 9:40 AM EST Elevated gastrin level UPPER GI ENDOSCOPY Routine 06/23/2023 9: 21 AM EST POCT GLUCOSE Routine 06/23/2023 8:57 AM EST documented in this encounter Results * Surgical Pathology Report (06/23/2023 9:57 AM EST) Final Diagnosis [id number] ? Location: 4T; 07; A The signing [...] Verified: ??07/01/2023 9:20 ?? Pathologist Performed at: ??-[facility] Dept. of Pathology, [place] [address] Qualified Craft Worker Electrician: Maxine Willis MD, FCAP, ??CLIA Certificate: [id number] ADDITIONAL STUDIES Immunohistochemistry Studies: Formalin-fixed, paraffin-embedded tissue [...] labeled E1. ??ajw 07/01/2023 9:20 AM EST [facility] GI Biopsy 06/23/2023 9:57 AM EST 06/23/2023 9:57 AM EST GI Biopsy 06/23/2023 9:57 AM EST 06/23/2023 9:57 AM EST GI Biopsy 06/23/2023 9:57 AM EST 06/23/2023 9:57 AM EST GI Biopsy 06/23/2023 9:57 AM EST 06/23/2023 9:57 AM EST GI Biopsy 06/23/2023 9:57 AM EST 06/23/2023 9:57 AM EST Thomas Hawthorne MD PATHOLOGY/CYTOLOGY ORDERABLES [facility] [address] [facility] [place] [address] * Specimen to Pathology (06/23/2023 9:57 AM EST) AP Specimen 06/23/2023 9:57 AM EST 06/23/2023 9:57 AM EST Narrative [facility] - 06/23/2023 9:57 AM EST Specimen requisition ordered. ??Separate Pathology report to follow Thomas Hawthorne MD PATHOLOGY/CYTOLOGY ORDERABLES Performing Organization Address [facility] [place] [address] * Specimen to Pathology (06/23/2023 9:57 AM EST) AP Specimen 06/23/2023 9:57 AM EST 06/23/2023 9:57 AM EST Narrative [facility] - 06/23/2023 9:57 AM EST Specimen requisition ordered. ??Separate Pathology report to follow Thomas Hawthorne MD PATHOLOGY/CYTOLOGY ORDERABLES Performing Organization Address [facility] [place] [address] * Specimen to Pathology (06/23/2023 9:57 AM EST) AP Specimen 06/23/2023 9:57 AM EST 06/23/2023 9:57 AM EST Narrative [facility] - 06/23/2023 9:57 AM EST Specimen requisition ordered. ??Separate Pathology report to follow Thomas Hawthorne MD PATHOLOGY/CYTOLOGY ORDERABLES Performing Organization Address [facility] [place] [address] * Specimen to Pathology (06/23/2023 9:57 AM EST) AP Specimen 06/23/2023 9:57 AM EST 06/23/2023 9:57 AM EST Narrative [facility] - 06/23/2023 9:57 AM EST Specimen requisition ordered. ??Separate Pathology report to follow Thomas Hawthorne MD PATHOLOGY/CYTOLOGY ORDERABLES Performing Organization Address [facility] [place] [address] * Specimen to Pathology (06/23/2023 9:57 AM EST) AP Specimen 06/23/2023 9:57 AM EST 06/23/2023 9:57 AM EST Narrative [facility] - 06/23/2023 9:57 AM EST Specimen requisition ordered. ??Separate Pathology report to follow Thomas Hawthorne MD PATHOLOGY/[place] [address] * UPPER GI ENDOSCOPY (06/23/2023 9:21 AM EST) UPPER GI ENDOSCOPY [facility] Procedure Date: 06/23/2023 9:21 AM ? Patient Name: Nikia Denton ? N: [id number] ? Date of : 1965 ? Age: 57 ? Order #: [id number] ? Instrument Name: [id number] ? Procedure: ? Upper GI endoscopy Indications: ? Chronic diarrhea, elevated ? gastrin/chromogranin levels, ? diffuse gastric uptake on NetSpot Providers: ? Thomas Hawthorne, Alcon Rodriguez, ? RN, Janelle Brewer, Manager Core Referring MD: ?Moise Lala, Ana Maria Zacarias [...] the ? physician, the nurse, the ? floor coverer apprentice and the engineering specialist technician. The ? procedure was verified in [...] care under ? the supervision of a ELECTRONIC WIRER was ? determined to be medically ? [...] Glucose, POC 116 65 - 199 mg/dL [facility] Comment: Supplemental ranges: <140 mg/dL before meals <180 mg/dL all other times of the day Blood 06/23/2023 8:57 AM EST 06/23/2023 8:57 AM EST Thomas Hawthorne MD POINT OF CARE TEST ORDERABLES Performing Organization Address City/[facility] Co de Phone Number [facility] [address] documented in this encounter Visit Diagnoses Not [...] CRNA) documented in this encounter Care Teams Pole Truck Driver Relationship Specialty Start Date End Date Raser, Moise, MD PCP - General Family Medicine 06/26/17 02/15/24 documented as of this encounter
--- OUTSIDE RECORDS SUMMARY | 2024-07-01 12:45 | XMS_ITS | Encounter Summary ---
Author Organization [facility] [place] [address] Care Team Providers Care Embedded Nurse Name Role Phone Moise Lala MD Primary Care Provider [phone] Reason for Visit * Diagnostic Test (Routine) - Closed Specialty Diagnoses / Procedures Referred By Contac t Referred To Contact Radiology Diagnoses Diarrhea, unspecified type Elevated gastrin level Procedures NM PET CT Neuroendocrine (DETECTNET) Ana Maria Zacarias MD [facility] [place] [address] [place] [address] Referral ID Status Reason Start Date Expiration Date V isits Requested Visits Authorized [id number] Closed Specialty Service Requested 04/11/2023 10/09/2024 1 1 Encounter Details Date Type Department Care Team (Latest Contact Info) Description 05/09/2023 11:25 AM EST - 05/09/2023 11:59 PM [facility] Hospital Encounter [place] [address] Ana Maria Zacarias MD [facility] [place] [address] Discharge Disposition: Home Social History [...] questions please contact the health career services representative that requested your imaging first. ? Electronically signed by: Florentin Kitchen MD, [facility] ([phone]), at 05/16/2023 3:11 PM Narrative 05/16/2023 3:11 [...] have questions please contactthe health career services representative that requested your imaging first. Electronically signed by: Florentin Kitchen MD, [facility]([phone]), at 05/16/2023 3:11 PM Ana Maria Zacarias [...] mCi documented in this encounter Care Teams Embedded Nurse Relationship Specialty Start Date End Date Moise Lala MD PCP - General Family Medicine 06/26/17 02/15/24 documented as of this encounter
--- OUTSIDE RECORDS SUMMARY | 2024-07-01 12:46 | XMS_ITS | Encounter Summary ---
Author Organization [facility] [place] [address] Care Team Providers Care Senior Program Manager Name Role Phone Moise Lala MD Primary Care Provider [phone] Encounter Details Date Type Department Care Team (Late st Contact Info) Description 09/01/2017 Telephone Obstetrics [place] [address] Melody Lindo MD [facility] [address] OBSTETRICS & [place] [address] Social History Tobacco Use Types Packs/Day Years [...] on filedocumented in this encounter Care Teams Senior Program Manager Relationship Specialty Start Date End Date Moise Lala MD PCP - General Family Medicine 06/26/17 02/15/24 documented as of this encounter
--- OUTSIDE RECORDS SUMMARY | 2024-07-01 12:46 | XMS_ITS | Encounter Summary ---
[place] [address] Care Team Providers Care Greenhouse Superintendent Name Role Phone Moise Lala MD Primary Care Provider [phone] Reason for Visit * Auth/Cert Specialty Diagnoses / Procedures Referred By Gael t Referred To Contact Diagnoses Morbid (severe) obesity due to excess calories Nicotine dependence, unspecified, uncomplicated Abnormal uterine bleeding (AUB) perimenopausal AUB Procedures PRO LAPAROSCOPY W TOT HYSTERECT UTERUS 250 GRAM OR LESS LAPAROSCOPY, HYSTERECTOMY, UTERUS<250GMS (WRVU 13.36) Referral ID Status Reason Start Date Expiration Date Visits Re quested Visits Authorized [id number] 1 1 Encounter Details Date Type Department Care Team (Late st Contact Info) Description 08/19/2017 7:29 AM EDT Anesthesia Event [place] [address] Cathleen Knott MD Cotoi, Daniel, MD Anesthesia [...] IV Line - Single Lumen 08/19/17; 0643; vgpz-cle-pjrpnd catheter system; 20 gauge; Kalee Mason RN; [...] at Teeth: 21 cm; Inserted by: JAMIE Qrueshi; Removal Date: 08/19/17; Removal Time: 1027 08/19/17 [...] Knott MD - 08/19/2017 11:09 AM EDT [facility] Department of Anesthesiology Post-procedure Note Patient: Nikia [...] All Anesthesia Providers: Anesthesiologist: Cathleen Knott MD MDM DEVELOPER: Zhao Ayala CRNA; Shobha Qureshi CRNA Most Recent Vitals: 08/19/17 1100 BP: 134/79 Pulse: 67 Resp: 8 Temp: SpO2: 99% Pain 0 (08/19/17 1029) [facility] Level of Consciousness: Awake and Alert [...] Smoker, obese, sleep apnea compliant with CPAP ([id number]). 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 Consent signed in PAT. Questions sought and answered. Region - Other Informed Consent: Anesthetic plan and risks discussed with patient. Use of blood products discussed with patient who. Plan discussed with MDM DEVELOPER. PAT Staff Note documented in this encounter [...] mg documented in this encounter Care Teams Greenhouse Superintendent Relationship Specialty Start Date End Date Moise Lala MD PCP - General Family Medicine 06/26/17 02/15/24 documented as of this encounter
--- OUTSIDE RECORDS SUMMARY | 2024-07-01 12:46 | XMS_ITS | Encounter Summary ---
[place] [address] Care Team Providers Care Overcoil Stepper Name Role Phone Moise Lala MD Primary Care Provider [phone] Reason for Visit * Auth/Cert Specialty Diagnoses / Procedures Referred By Contluda t Referred To Contact Diagnoses Morbid (severe) obesity due to excess calories Nicotine dependence, unspecified, uncomplicated Abnormal uterine bleeding (AUB) perimenopausal AUB Procedures PRO LAPAROSCOPY W TOT HYSTERECT UTERUS 250 GRAM OR LESS LAPAROSCOPY, HYSTERECTOMY, UTERUS<250GMS (WRVU 13.36) Referral ID Status Reason Start Date Expiration Date Visits Re quested Visits Authorized [id number] 1 1 Encounter Details Date Type Department Care Team (Latest Contact Info) Description 08/19/2017 5:50 AM EDT - 08/20/2017 10:30 AM EDT Hospital Encounter [place] [address] Kody Toth MD Morbid obesity; Tobacco use [...] Nikia Denton Patient Age: 51 y.o. Language: Hong Konger Race: White Ethnicity: Not nor Admit date: 08/19/2017 Discharge date and time: 08/20/17 8:59 AM Attending Physician: Kody Toth MD Discharge Physician: Kody Toth MD Follow-up Recommendations for Providers: -- 4-6 weeks for postoperative visit -- Final surgical pathology Inpatient Provider Contact Information: [facility] [place] [facility] Department, Discharge Diagnoses (Hospital Problems) and Secondary [facility] [place] [facility] Department: Follow Up Appointment: --Postoperative visit in [...] None Provider Contact Information: Moise Lala MD [phone] documented in this encounter Discharge Instructions * Patient Instructions* Melody Lindo - 08/19/2017 10:53 AM EDT Images from the original note were not included. PATIENT DISCHARGE INSTRUCTIONS [facility] [place] [facility] Department: Follow Up Appointment: --Postoperative visit in [...] home pending voiding trial. Please see s tetn-based assessment below. Neuro/Pain Control: History of fibromyalgia. [...] Dr. Toth. Melody Lindo MD PGY-1 08/20/17 ENGINEERING INSTRUCTOR Service Pager: [phone] Associated attestation - Kody Toth MD - [...] Will DWA Melody Werner MD PGY-4 08/19/17 ENGINEERING INSTRUCTOR Service Pager: [phone] * Kristy Deal RN - 08/19/2017 11:22 AM EDT Lunch coverage at this time. Pt c/o nausea and having apnea. CPAP currently being checked by [facility] will place on patient when nausea subsides. [...] Melody Lindo - 08/19/2017 6:38 AM EDT Call Center Operator Inpatient Admission Interval Note I have reviewed [...] Outcome: Ongoing (Interventions Implemented as Appropriate) 08/19/17 3048 Interdisciplinary Rounds/Family Conf Participants family;nursing;physician * Op Note - Melisa Wilkerson MD - 08/19/2017 11:26 AM EDT Operative Note ?? Patient Name: Nikia Denton : [id number] MR#: [id number] ?? Case Date: 08/19/2017 ?? Surgeon: Surgeon(s) [...] in the dorsal lithotomy position in [facility] stirrups.She was prepped and draped in the [...] Operative Note Patient Name: Nikia Denton : [id number] MR#: [id number] Case Date: 08/19/2017 Surgeon: Surgeon(s) and Role: [...] POCT GLUCOSE Routine 08/19/2017 6:26 AM EDT HAM STRIPPER SCAN 08/19/2017 12:00 AM EDT documented in this encounter Results * POCT Glucose (08/20/2017 7:18 AM EDT) Glucose, POC 113 65 - 199 mg/dL [facility] Comment: Supplemental ranges: <140 mg/dL before meals <180 mg/dL all other times of the day Blood specimen (specimen) 08/20/2017 7:18 AM EDT 08/20/2017 7:18 AM EDT Kody Toth MD POINT OF CARE TEST Melonie QUIÑONES [facility] [place] [address] * POCT Glucose (08/20/2017 3:48 AM EDT) Glucose, POC 116 65 - 199 mg/dL [facility] Comment: Supplemental ranges: <140 mg/dL before meals <180 mg/dL all other times of the day Blood specimen (specimen) 08/20/2017 3:48 AM EDT 08/20/2017 3:48 AM EDT Kody Toth MD POINT OF CARE TEST O NURIA [facility] [place] [address] * POCT Glucose (08/19/2017 11:52 PM EDT) Glucose, POC 117 65 - 199 mg/dL [facility] Comment: Supplemental ranges: <140 mg/dL before meals <180 mg/dL all other times of the day Blood specimen (specimen) 08/19/2017 11:52 PM EDT 08/19/2017 11:52 PM EDT Kody Toth MD POINT OF CARE TEST O NURIA Performing Organization Address [facility] [address]/[facility] Co de Phone Number [facility] [place] [address] * POCT Glucose (08/19/2017 8:10 PM EDT) Glucose, POC 147 65 - 199 mg/dL [facility] Comment: Supplemental ranges: <140 mg/dL before meals <180 mg/dL all other times of the day Blood specimen (specimen) 08/19/2017 8:10 PM EDT 08/19/2017 8:10 PM EDT Kody Toth MD POINT OF CARE TEST O NURIA Performing Organization Address [facility] Co de Phone Number [facility] [place] [address] * POCT Glucose (08/19/2017 3:40 PM EDT) Glucose, POC 139 65 - 199 mg/dL [facility] Comment: Supplemental ranges: <140 mg/dL before meals <180 mg/dL all other times of the day Blood specimen (specimen) 08/19/2017 3:40 PM EDT 08/19/2017 3:40 PM EDT Kody Toth MD POINT OF CARE TEST O RDERAJESSENIA Performing Organization Address [facility] [address]/[facility] Co de Phone Number [facility] [place] [address] * Surgical Pathology Report (08/19/2017 8:59 AM EDT) Final Diagnosis [id number] ? Location: [facility]; 16; A The signing pathologist has (i) [...] [place], [place], [place] CLINICAL INFORMATION Specimen Submitted: A - [...] nodules. (R8) nsm 08/22/2017 10:10 AM EDT [facility] Uterine Corpus 08/19/2017 8: 59 AM EDT 08/19/2017 8:59 AM EDT Kody Toth MD PATHOLOGY/CYTOLOGY O RDALVERTO Performing Organization Address City/[facility] [address]/[facility] Co de Phone Number [facility] [place] [address] * Specimen to Pathology (08/19/2017 8:59 AM EDT) AP Specimen 08/19/2017 8:59 AM EDT 08/19/2017 8:59 AM EDT Narrative [facility] - 08/19/2017 8:59 AM EDT Specimen requisition ordered. ??Separate Pathology report to follow Kody Toth MD PATHOLOGY/CYTOLOGY O NURIA Performing Organization Address [facility] Co de Phone Number [facility] [place] [address] * POCT urine (08/19/2017 7:21 AM EDT) POC Urine HCG Negative Negative - Negative POC Control Internal Controls Acceptable Urine specimen (specimen) 08/19/2017 7:21 AM EDT Kody Toth MD POINT OF CARE TEST O RDERAJESSENIA * POCT Glucose (08/19/2017 6:26 AM EDT) Glucose, POC 136 65 - 199 mg/dL [facility] Comment: Supplemental ranges: <140 mg/dL before meals <180 mg/dL all other times of the day Blood specimen (specimen) 08/19/2017 6:26 AM EDT 08/19/2017 6:26 AM EDT Kody Toth MD POINT OF CARE TEST O NURIA Performing Organization Address [facility] [address]/[facility] Co de Phone Number [facility] [place] [address] * SCAN DOC: HAM STRIPPER (08/19/2017 12:00 AM EDT) Anatomical Region Laterality [...] Routine documented in this encounter Care Teams Overcoil Stepper Relationship Specialty Start Date End Date Moise Lala MD PCP - General Family Medicine 06/26/17 02/15/24 documented as of this encounter
--- OUTSIDE RECORDS SUMMARY | 2024-07-01 12:46 | XMS_ITS | Encounter Summary ---
Author Organization [facility] [place] [address] Care Team Providers Care Display Director Name Role Phone Moise Lala MD Primary Care Provider [phone] Reason for Visit * Reason Comments Post Op Encounter Details Date Type Department Care Team (Late st Contact Info) Description 09/01/2017 9:30 AM EDT Office Visit Obstetrics [place] [address] Melody Lindo MD [facility] OBSTETRICS & [place] [address] Urinary frequency; Abnormal uterine bleeding Social History [...] RBC, Urine 6(H) 0 - 4 /HPF [facility] WBC, Urine 2 0 - 5 /HPF [facility] Squamous Epithelial Cells Raw Data, Urine 9(H) <=4 /HPF [facility] Transitional Epithelial Cells, Urine <1 <=1 /HPF [facility] Renal Epithelial Cells, Urine <1(H) <=0 /HPF [facility] Hyaline Casts, Urine 3(H) 0 - 2 /LPF [facility] Urine specimen obtained by clean catch procedure (specimen) 09/01/2017 10:15 AM EDT 09/01/2017 10:44 AM EDT Narrative Resulting Agency Comment Spec In Lab Melody Lindo MD URINE ORDERABLES [facility] [place] [address] * (ABNORMAL) Urinalysis with reflex Culture (09/01/2017 10:15 AM EDT) Glucose, Urine Dipstick Negative Negative mg/dL [facility] Protein, Urine Dipstick 30(A) Negative mg/dL [facility] Bilirubin, Urine Dipstick Negative Negative mg/dL [facility] Comment: Clinical correlation required for positive Urine Bilirubin results as false positive may occur with some drugs and drug related products. If a false positive is suspected a serum total bilirubin should be considered if clinically indicated. Urobilinogen, Urine Dipstick Normal Normal mg/dL [facility] pH, Urn (dipstick) 5.0 5.0 - 8.0 [facility] Blood, Urine Dipstick Negative Negative mg/dL [facility] Ketone, Urine Dipstick 5(A) Negative mg/dL [facility] Nitrite, Urine Dipstick Negative Negative [facility] Leukocytes, Urine Dipstick Negative Negative [facility] Appearance, Urine Dipstick Hazy(A) Clear [facility] Specific [place] Urine Automated >1.035(H) 1.002 - 1.030 [facility] Color, Urine Dipstick Yellow Yellow [facility] Reflex to Culture No [facility] Urine specimen obtained by clean catch procedure (specimen) 09/01/2017 10:15 AM EDT 09/01/2017 10:44 AM EDT Narrative Resulting Agency Comment Spec In Lab Rain Gauthier MD URINE ORDERABLES [facility] [place] [address] * Bladder Scanner (09/01/2017) Bladder Scan (mL) 32 mL Rain Gauthier MD URO PROC W/O RFL ORD ERABLES documented in this encounter Visit Diagnoses Diagnosis Urinary frequency Abnormal uterine bleeding Unspecified disorder of menstruation and other abnormal bleeding from female genital tract documented in this encounter Care Teams Display Director Relationship Specialty Start Date End Date Moise Lala MD PCP - General Family Medicine 06/26/17 02/15/24 documented as of this encounter
--- OUTSIDE RECORDS SUMMARY | 2024-07-01 12:46 | XMS_ITS | Encounter Summary ---
Author Organization [facility] [place] [address] Care Team Providers Care Resident Care Aide Name Role Phone Moise Lala MD Primary Care Provider [phone] Reason for Visit * Auth/Cert Specialty Diagnoses [...] Guillermo Omer MD [facility] [place] [address] [facility] Referral ID Status Reason Start Date Expiration Date Visits Re quested Visits Authorized [id number] 1 1 Encounter Details Date Type Department Care Team (Late st Contact Info) Description 11/07/2021 7:55 AM EDT Ancillary [place] [id number] Social History Tobacco Use Types Packs/Day Years [...] XR ERCP (11/07/2021 9:46 AM EDT) Narrative [facility] [place] - 11/07/2021 9:47 AM EDT See PACS for result report. Guillermo Omer MD IMG FILM LIBRARY ORD ERABLES Performing Organization Address City/State/[facility] Co de Phone Number [place], [place] documented in this encounter Visit Diagnoses Not on filedocumented in this encounter Care Teams Resident Care Aide Relationship Specialty Start Date End Date Moise Lala MD PCP - General Family Medicine 06/26/17 02/15/24 documented as of this encounter
--- OUTSIDE RECORDS SUMMARY | 2024-07-01 12:46 | XMS_ITS | Encounter Summary ---
Author Organization [facility] [place] [address] Care Team Providers Care Process Laboratory Specialist Name Role Phone Moise Lala MD Primary Care Provider [phone] Encounter Details Date Type Department Care Team (Late st Contact Info) Description 10/18/2021 Ancillary Procedure Radiology Library at [facility] [place] [phone] Moise Lala MD [address] [place] [address] [address] [place] [id number] Social History Tobacco Use Types Packs/Day Years [...] MR Abdomen (10/18/2021 12:00 AM EDT) Narrative [facility] - 10/23/2021 10:03 AM EDT This exam is auto-finalizing. It's purpose is for storage only. Moise Lala MD [facility] [place]RARY [place]D ERABLES Performing Organization Address City/State/[facility] Co de Phone Number [place], [place] documented in this encounter Visit Diagnoses Not on filedocumented in this encounter Care Teams Process Laboratory Specialist Relationship Specialty Start Date End Date Moise Lala MD PCP - General Family Medicine 06/26/17 02/15/24 documented as of this encounter
--- OUTSIDE RECORDS SUMMARY | 2024-07-01 12:46 | XMS_ITS | Encounter Summary ---
Author Organization [facility] [place] [address] Care Team Providers Care [employer] Assistant Manager Name Role Phone Moise Lala MD Primary Care Provider [phone] Encounter Details Date Type Department Care Team (Late st Contact Info) Description 07/21/2017 Orders Only Obstetrics [place] [phone] Kody Toth MD Abnormal uterine bleeding; Morbid [...] hysterectomy. Please call the patient back at [phone] (cell#) with any questions or to schedule [...] hypertension documented in this encounter Care Teams [employer] Assistant Manager Relationship Specialty Start Date End Date Moise Lala MD PCP - General Family Medicine 06/26/17 02/15/24 documented as of this encounter
--- OUTSIDE RECORDS SUMMARY | 2024-07-01 12:46 | XMS_ITS | Encounter Summary ---
[place] [address] Care Team Providers Care Nib Adjuster Name Role Phone Moise Lala MD Primary Care Provider [phone] Reason for Visit * Reason Comments Follow-up 08/19/17-hyst-5 week f ollow up Encounter Details Date Type Department Care Team (Late st Contact Info) Description 09/22/2017 10:45 AM EDT Office Visit Obstetrics [place] [phone] Kody Toth MD Postop check Social History [...] surgery documented in this encounter Care Teams Nib Adjuster Relationship Specialty Start Date End Date Moise Lala MD PCP - General Family Medicine 06/26/17 02/15/24 documented as of this encounter
--- OUTSIDE RECORDS SUMMARY | 2024-07-01 12:46 | XMS_ITS | Encounter Summary ---
Author Organization [facility] [place] [address] Care Team Providers Care Tax Representative Name Role Phone Moise Lala MD Primary Care Provider [phone] Encounter Details Date Type Department Care Team (Late st Contact Info) Description 11/12/2021 Orders Only [place] [address] Thomas Hawthorne MD [facility] [place] [address] Social History Tobacco Use Types Packs/Day Years [...] on filedocumented in this encounter Care Teams Tax Representative Relationship Specialty Start Date End Date Moise Lala MD PCP - General Family Medicine 06/26/17 02/15/24 documented as of this encounter
--- OUTSIDE RECORDS SUMMARY | 2024-07-01 12:46 | XMS_ITS | Encounter Summary ---
Author Organization [facility] [place] [address] Care Team Providers Care Test Lab Technician Name Role Phone Moise Lala MD Primary Care Provider [phone] Encounter Details Date Type Department Care Team (Late st Contact Info) Description 11/07/2021 Notes [place] [address] Alek Salmeron Jr. Social History Tobacco Use [...] PI: Emil Thomas MD MS Sanz # [id number] Objective of visit: Alek Lea Jr , research coordinator, and Dr. Omer met with Nikia Denton in [facility] to provide information regarding protocol [id number], answer questions or concerns about study plan, [...] will continue to be screened on study [id number] to determine if patient meets criteria during [...] filedocumented in this encounter Care Teams Test Lab Technician Relationship Specialty Start Date End Date Moise Lala MD PCP - General Family Medicine 06/26/17 02/15/24 documented as of this encounter
--- OUTSIDE RECORDS SUMMARY | 2024-07-01 12:46 | XMS_ITS | Encounter Summary ---
Author Organization [facility] [place] [address] Care Team Providers Care Bagger And Stock Handler Helper Name Role Phone Moise Lala MD Primary Care Provider [phone] Reason for Visit * Reason Comments Pre-op Exam Encounter Details Date Type Department Care Team (Late st Contact Info) Description 08/08/2017 3:30 PM EDT Office Visit Obstetrics [place] [address] Noreen Dawson MD [facility] OBSTETRICS & [place] [address] Preop testing Social History Tobacco Use Types [...] obtained per her PCP Dr. Lala at [facility] on visit 08/07/2017. 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 The patient did sign the [facility] acute narcotic consent form in anticipation of [...] EDT) Glucose 101 65 - 199 mg/dL [facility] Comment:Diabetes: >=200 mg/d L plus symptoms Blood Urea Nitrogen 16 8 - 18 mg/dL [facility] Creatinine 0.82 0.70 - 1.20 mg/dL [facility] Sodium 137 135 - 145 mmol/L [facility] Potassium 4.0 3.5 - 5.0 mmol/L [facility] Comment: Please note: ??Patients with WBC >100,000 may have falsely elevated Potassium levels. ??For accurate Potassium quantification in these patients send serum separator tube (gold top) for subsequent determinations. ??Contact the Clinical Chemistry Laboratory if there are any questions. Chloride 98 98 - 107 mmol/L [facility] Carbon Dioxide 27 22 - 31 mmol/L [facility] Anion Gap 12 5 - 15 mmol/L [facility] Calcium 9.3 8.5 - 10.5 mg/dL [facility] Protein, Total 7.3 6.1 - 8.0 gm/dL [facility] Albumin 4.3 3.2 - 5.2 gm/dL [facility] Aspartate Aminotransferase 8 0 - 30 unit/L [facility] Alanine Aminotransferase 19 0 - 30 unit/L [facility] Alkaline Phosphatase 104 40 - 104 unit/L [facility] Bilirubin, Total 0.2 0.2 - 1.3 mg/dL [facility] Est Glomerular Filtration Rate >60 >=60 [facility] Comment: The reported eGFR should be multiplied by 1.2 for patients. The MDRD is not an appropriate measure of renal function for patients with body mass extremes or in patients with acute kidney failure. http://[employer]/DHnkdep http://[employer]/DHMCnkf Blood specimen (specimen) 08/08/2017 5:59 PM EDT 08/08/2017 6:03 PM EDT Narrative Resulting Agency Comment Spec In Lab Kody Toth MD CHEMISTRY ORDERABLES [facility] [place] [place] [address] * EKG 12 Lead (08/08/2017 5:38 PM EDT) Ventricular rate 81 BPM MUSE SYSTEM Atrial Rate 81 BPM MUSE SYSTEM P-R Interval 164 ms MUSE SYSTEM QRS Duration 162 ms MUSE SYSTEM Q-T Interval 454 ms MUSE SYSTEM QTC Calculated (Bezet) 527 ms MUSE SYSTEM Calculated P [place] 50 degrees MUSE SYSTEM Calculated R [place] 7 degrees MUSE SYSTEM Calculated T [place] 121 degrees MUSE SYSTEM INTERPRETATION Normal sinus [...] unspecified documented in this encounter Care Teams Bagger And Stock Handler Helper Relationship Specialty Start Date End Date Moise Lala MD PCP - General Family Medicine 06/26/17 02/15/24 documented as of this encounter
--- OUTSIDE RECORDS SUMMARY | 2024-07-01 12:46 | XMS_ITS | Encounter Summary ---
Author Organization [facility] Address [facility] [place] [address] Care Team Providers Care Meter Supervisor Name Role Phone Moise Lala MD Primary Care Provider [phone] Reason for Referral * Consultation (Routine) - [...] next step. Ana Maria Hendricks MD [address] [place] [address] Giselle Nelson MD [facility] [place] [address] Referral ID Status Reason Start Date Expiration Date V isits Requested Visits Authorized [id number] Closed Consult, Test & Treat PCP Updated and/or Approved 03/13/2023 03/12/2024 6 6 Encounter Details Date Type Department Care Team (Latest Contact Info) Description 03/13/2023 Transcribe Orders eDH Incoming Referrals [phone] Ana Maria Hendricks MD Cardiomyopathy, unspecified type; [...] block documented in this encounter Care Teams Meter Supervisor Relationship Specialty Start Date End Date Moise Lala MD PCP - General Family Medicine 06/26/17 02/15/24 documented as of this encounter
--- OUTSIDE RECORDS SUMMARY | 2024-07-01 12:46 | XMS_ITS | Encounter Summary ---
Author Organization [facility] Address [facility] [place] [address] Care Team Providers Care Stuffer Name Role Phone Moise Lala MD Primary Care Provider [phone] Encounter Details Date Type Department Care Team (Latest Contact Info) Description 08/08/2017 6:08 PM EDT - 08/08/2017 11:59 PM EDT Hospital Encounter XRay at [address] [place] [phone] Kody Toth MD Preop testing Discharge Disposition: [...] unspecified documented in this encounter Care Teams Stuffer Relationship Specialty Start Date End Date Miose Lala MD PCP - General Family Medicine 06/26/17 02/15/24 documented as of this encounter
--- OUTSIDE RECORDS SUMMARY | 2024-07-01 12:46 | XMS_ITS | Encounter Summary ---
[place] [address] Care Team Providers Care Press Service Reader Name Role Phone Moise Lala MD Primary Care Provider [phone] Encounter Details Date Type Department Care Team (Late st Contact Info) Description 07/11/2017 Telephone Obstetrics [place] [phone] Kody Toth MD Social History Tobacco Use [...] John Arias Verified: ??07/07/2017 ?Pathologist Performed at: ??-[facility] Dept. of Pathology, [place], [place] Patient contacted with endometrial biopsy results [...] on filedocumented in this encounter Care Teams Press Service Reader Relationship Specialty Start Date End Date Moise Lala MD PCP - General Family Medicine 06/26/17 02/15/24 documented as of this encounter
--- OUTSIDE RECORDS SUMMARY | 2024-07-01 12:46 | XMS_ITS | Encounter Summary ---
Author Organization [facility] Address [facility] [address] Care Team Providers Care Edge Burnisher Name Role Phone Moise Lala MD Primary Care Provider [phone] Encounter Details Date Type Department Care Team (Latest Contact Info) Description 03/30/2020 4:56 PM EST - 03/30/2020 11:59 PM EST Hospital [place] [phone] Discharge Disposition: Home Social History Tobacco Use [...] EST) SARS-CoV-2 RNA Not Detected Not Detected [facility] Comment: This result should [...] on the instructions for use provided by [employer] and additional guidance provided by CDC and FDA. Testing is performed in the Clinical [facility] Laboratory within the Department of Pathology and Laboratory Medicine at [facility], certified under the Clinical Laboratory [...] fact sheets at the following FDA website: https://www.fda.gov/medical-devices/mppdozeqazh-xwyrfiy-4409-vzaxd-51-eckkupowk- use-a olkwgetqzhsai-giiifrz-rzolbvx/eurtz-qqhwiyrgvti-wdjr SARS-CoV-2 RNA Source [facility] Specimen from nose (specimen) Other / Unknown 03/30/2020 10:57 AM EST 03/31/2020 12:48 AM EST Narrative Resulting Agency Comment Spec In Lab Shruthi Mars DO MOLECULAR ORDERABLES Performing Organization Address City/State/[facility] Co de Phone Number [facility] [place] [address] documented in this encounter Visit Diagnoses Not on filedocumented in this encounter Care Teams Edge Burnisher Relationship Specialty Start Date End Date Moise Lala MD PCP - General Family Medicine 06/26/17 02/15/24 documented as of this encounter
--- OUTSIDE RECORDS SUMMARY | 2024-07-01 12:46 | XMS_ITS | Encounter Summary ---
Author Organization [facility] [place] [address] Care Team Providers Care Supervisor Title Name Role Phone Moise Lala MD Primary Care Provider [phone] Reason for Visit * Auth/Cert Specialty Diagnoses [...] EUS- ENDOSCOPIC ULTRASOUND ERCP Guillermo Omer MD [facility] [place] [address] [facility] Referral ID Status Reason Start Date Expiration Date Visits Re quested Visits Authorized [id number] 1 1 Encounter Details Date Type Department Care Team (Late st Contact Info) Description 11/07/2021 8:28 AM EDT Anesthesia [place] [phone] Alona Holliday MD [facility] [place] [address] Anesthesia Record Procedure Summary Procedure Name Responsible Anesthesiologist Anesthesia Start Time Anesthesia Stop Time UPPER EUS- ENDOSCOPIC ULTRASOUND (WRVU 3.47) (Trunk) Alona Holliday MD 11/07/21 0828 11/07/21 0955 Events Date Time Event Comment 11/07/2021 0759 0828 AN Verify 0828 Start 0828 An Start Data 0833 An Induction 0833 Anesthesia Ready 0854 an candy now 0854 An Induction Convert to gene [facility] with ett for ERCP 0856 An Intubation [...] 0750; metacarpal vein (top of hand), right; waoe-deb-cwvtcw catheter system; 22 gauge; intradermal injection; LDA [...] Procedure Summary Date: 11/07/21 Room / Location: [facility] ENDO 2 / [facility] Anesthesia Start: 827 Anesthesia Stop: 954 [...] All Anesthesia Providers: Anesthesiologist: Alona Holliday MD REDEVELOPMENT SPECIALIST: Arnoldo Angel CRNA Vitals Value Taken Time BP 136/92 11/07/21 1030 Temp Pulse Resp 18 11/07/21 1020 SpO2 98 % 11/07/21 1040 Pain Level 0 11/07/21 1005 Vitals shown include unvalidated device data. Patient Location: PACU/[facility] Level of Consciousness: Awake and Alert [...] 2.23) performed by Kody Toth MD at [facility] MA[facility] OR ? ? PRO LAPAROSCOPY W TOT HYSTERECTUTERUS <=250 GRAM W TUBE/OVARY N/A 08/19/2017 LAPAROSCOPY, TOTAL HYST, UTERUS<250GMS, REM TUBE &/OR OVARY (WRVU 15) performed by Kody Toth MD at [facility] MAIN OR Social History Tobacco Use ??? [...] risks discussed with patient. Plan discussed with REDEVELOPMENT SPECIALIST and attending. Anesthesia Screening documented in this [...] mg documented in this encounter Care Teams Supervisor Title Relationship Specialty Start Date End Date Moise Lala MD PCP - General Family Medicine 06/26/17 02/15/24 documented as of this encounter
--- OUTSIDE RECORDS SUMMARY | 2024-07-01 12:46 | XMS_ITS | Encounter Summary ---
[place] [address] Care Team Providers Care Biology Instructor Name Role Phone Moise Lala MD Primary Care Provider [phone] Reason for Referral * Consultation (Routine) - Closed Specialty Diagnoses / Procedures Referred By Contac t Referred To Contact Weight and Wellness Diagnoses Class 2 severe obesity due to excess calories with serious comorbidity and body mass index (BMI) of 37.0 to 37.9 in adult Ana Maria Zacarias MD [facility] [place] [address] [facility] [place] [address] Referral ID Status Reason Start Date Expiration Date V isits Requested Visits Authorized [id number] Closed Consult, Test & Treat 04/08/2023 04/07/2024 1 1 * Consultation (Routine) - Closed Specialty Diagnoses / Procedures Referred By Contluda t Referred To Contact Gastroenterology Diagnoses Diarrhea, unspecified type Ana Maria Zacarias MD [facility] [place] [address] Franchesca Flores, PhD [facility] [place] [address] Referral ID Status Reason Start Date Expiration Date V isits Requested Visits Authorized [id number] Closed Consult, Test & Treat 04/08/2023 04/07/2024 1 1 Reason for Visit * Consultation (Routine) - Closed Specialty Diagnoses / Procedures Referred By Gael ritter Referred To Contact Gastroenterology Diagnoses Enlarged liver Fatty liver RUQ pain Diarrhea, unspecified type fatty liver/ ruq pain/diarrhea Yasmeen Lala, CAPACITY PLANNING ENGINEER [address] [place] [address] [facility] [place] [address] [address] Referral ID Status Reason Start Date Expiration Date V isits Requested Visits Authorized [id number] Closed Consult, Test & Treat PCP Updated and/or Approved 01/15/2023 01/15/2024 12 12 Encounter Details Date Type Department Care Team (Late st Contact Info) Description 04/08/2023 9:30 AM EST Office Visit Gastroenterology at [place] [phone] Ana Maria Zacarias MD [facility] [place] [address] Insomnia; Elevated liver enzymes; Diarrhea, unspecified type; [...] not included. HEPATOLOGY CONSULTATION Nikia Denton 1965 [address] OPERATOR: Ana Maria Zacarias MD ([id number]) PCP: Moise Lala MD Requesting Provider: Yasmeen Lala, CAPACITY PLANNING ENGINEER [address] [place] [address] REASON FOR CONSULTATION MASLD HISTORY OF PRESENT ILLNESS Nikia Denton is a 57 y.o. year old history of diabetes, hypertension, and hyperlipidemia. She reports having diarrhea since her cholecystectomy and ERCP 2 years intermittently. She reports diarrhea occurs a few times per weeks, 5-7 BM, Maxwell type 7, without blood, bright yellow. She reports having Maxwell type 6, with 2 BM per day. [...] 1-2 tablets at HS (Patient taking differently: [id number] mg by mouth nightly.) 90 tablet 0 [...] Range Status UPPER ENDOSCOPIC ULTRASOUND 11/07/2021 Final Value:[facility] Procedure Date: 11/07/2021 8:19 AM Patient Name: Nikia Denton Date of : 1965 Age: 55 Order #: [id number] Instrument Name: [id number] Procedure: Upper EUS Indications: Choledocholithiasis on MRCP, [...] On: 11/07/2021 8:19 AM ERCP 11/07/2021 Final Value:[facility] Procedure Date: 11/07/2021 8:06 AM Patient Name: Nikia Denton Date of : 1965 Age: 55 Order #: [id number] Instrument Name: [id number] Procedure: ERCP Indications: Abnormal MRCP, Abnormal endoscopic ultrasound of the biliary system, Evaluation and possible treatment of bile duct stone(s) Providers: Guillermo Omer MD, Clau Livingston RN, Buster Staton Referring MD: Moise Lala Medicines: General Anesthesia, Indomethacin 100 mg MI Complications: No immediate complications. Procedure: Pre-Anesthesia Assessment: [...] patient tolerated the procedure well. Findings: A wood crafter film of the abdomen was obtained. Surgical [...] sphincterotomy was made with a monofilament [employer] cxxe-nld-kaof sphincterotome using ERBE electrocautery. The sphincterotomy oozed [...] ASSESSMENT/PLAN #Elevated liver enzymes, likely MASH Reviewed [facility] risk factors. Referred to weight and [...] Ana Maria Zacarias MD Hepatology and Gastroenterology [facility] Dr. [place] V: [phone] Copy: Moise Lala MD [address] [place] [address] / [facility] [id number] Time spent reviewing records prior to this [...] Hormone 1.49 0.27 - 4.20 mcIU/mL [facility] Comment: Reference Interval (mcIU/mL): Females: ??First Trimester: 0.23-3.88 ??Second Trimester: 0.22-3.90 ??Third Trimester: 0.44-4.66 Blood 04/08/2023 10:5 7 AM EST 04/08/2023 11:02 AM EST Narrative Resulting Agency Comment Spec In Lab Ana Maria Zacarias MD CHEMISTRY ORDERABLES [facility] [place] [address] * (ABNORMAL) Gastrin (04/08/2023 10:57 AM EST) Gastrin (SEPTEMBER) 215(H) pg/mL [facility] Comment: REFERENCE VALUE <100 Reference ranges valid for >= 8 hour fast. Test Performed by: [facility] - [facility] [address] [place] [address] Commercial Loan Assistant: Alexis Potter M.D. Ph.D.; CLIA# [id number] Blood 04/08/2023 10:5 7 AM EST 04/08/2023 1:21 PM EST Narrative Resulting Agency Comment Spec In Lab Ana Maria Zacarias MD LAB SEND OUT ORDERAB LES [facility] [place] [address] * (ABNORMAL) Chromogranin A (04/08/2023 10:57 AM EST) Chromogranin A (SEPTEMBER) 575(H) <93 ng/mL [facility] Comment: Impaired renal or hepatic function or treatment with proton pump inhibitors may result in artifactual elevations of Chromogranin A. ADDITIONAL INFORMATION This test was developed and its performance characteristics determined by [facility] in a manner consistent with CLIA [...] a homogeneous time-resolved immunofluorescent assay manufactured by [employer] and performed on the [employer] Kryptor Compact Plus. Values obtained with different assay methods or kits may be different and cannot be used interchangeably. Test results cannot be interpreted as absolute evidence for the presence or absence of malignant disease. Test Performed by: [facility] - [facility] [address] [place] [address] Commercial Loan Assistant: Alexis Potter M.D. Ph.D.; CLIA# [id number] Blood 04/08/2023 10:5 7 AM EST 04/08/2023 1:21 PM EST Narrative Resulting Agency Comment Spec In Lab Ana Maria Zacarias MD LAB SEND OUT ORDERAB LES Performing Organization Address City/[facility]/ZIP Co de Phone Number [facility] [place] [address] * HIV Screen, 4th Generation ([facility]/CGP/APD/NLH) (04/08/2023 10:57 AM EST) HIV Ab/Ag Screen Negative Negative [facility] Comment: This 4th Generation [...] Comment Low Risk of HIV Infection [facility] Blood 04/08/2023 10:5 7 AM EST 04/08/2023 11:02 AM EST Narrative Resulting Agency Comment Spec In Lab Ana Maria Zacarias MD CHEMISTRY ORDERABLES Performing Organization Address [facility] Co de Phone Number [facility] [place] [address] * Hepatitis C Antibody (04/08/2023 10:57 AM EST) Hepatitis C Antibody Negative Negative [facility] Blood 04/08/2023 10:5 7 AM EST 04/08/2023 11:02 AM EST Narrative Resulting Agency Comment Spec In Lab Ana Maria Zacarias MD CHEMISTRY ORDERABLES Performing Organization Address [facility] Co de Phone Number [facility] [place] [address] * Hepatitis B Core Antibody, Total (04/08/2023 10:57 AM EST) Hepatitis B Core Antibody Negative Negative [facility] Blood 04/08/2023 10:5 7 AM EST 04/08/2023 11:02 AM EST Narrative Resulting Agency Comment Spec In Lab Ana Maria Zacarias MD CHEMISTRY ORDERABLES Performing Organization Address City/[facility] Co de Phone Number [facility] [place] [address] * Hepatitis B Surface Antigen (04/08/2023 10:57 AM EST) Hepatitis B Surface Antigen Negative Negative [facility] Blood 04/08/2023 10:5 7 AM EST 04/08/2023 11:02 AM EST Narrative Resulting Agency Comment Spec In Lab Ana Maria Zacarias MD CHEMISTRY ORDERABLES Performing Organization Address [facility] Co de Phone Number [facility] [place] [address] * Hepatitis B Surface Antibody (04/08/2023 10:57 AM EST) Hepatitis B Surface Antibody, Quantitative 43.0 IU/L [facility] Comment: HepB Surface Ab Quant: Unvaccinated: < 8.5 IU/L Vaccinated: >= 11.5 IU/L Hepatitis B Surface Antibody Positive [facility] Comment: Patient is considered to be immune to HBV infection. Expected Results: Vaccinated: Positive Unvaccinated: Negative Blood 04/08/2023 10:5 7 AM EST 04/08/2023 11:02 AM EST Narrative Resulting Agency Comment Spec In Lab Ana Maria Zacarias MD CHEMISTRY ORDERABLES Performing Organization Address City/[facility] Co de Phone Number [facility] [place] [address] * Hepatitis A Antibody, Total (04/08/2023 10:57 AM EST) Hepatitis A ANTIBODY, TOTAL Negative Negative [facility] Blood 04/08/2023 10:5 7 AM EST 04/08/2023 11:02 AM EST Narrative Resulting Agency Comment Spec In Lab Ana Maria Zacarias MD CHEMISTRY ORDERABLES Performing Organization Address [facility] Co de Phone Number [facility] [place] [address] * Prothrombin Time (04/08/2023 10:57 AM EST) Prothrombin Time 11.0 9.4 - 12.5 sec [facility] International Normalization Ratio 1.0 [facility] Comment: An INR <2.0 indicates adequate [...] MD HEMATOLOGY ORDERABLE S Performing Organization Address [facility] Co de Phone Number [facility] [address] * (ABNORMAL) Comprehensive metabolic panel (non-fasting) (04/08/2023 10:57 AM EST) Glucose 126 65 - 199 mg/dL [facility] Comment:Diabetes: >=200 mg/d L plus symptoms Blood Urea Nitrogen 17 8 - 18 mg/dL [facility] Creatinine 0.68(L) 0.70 - 1.20 mg/dL [facility] Sodium 138 135 - 145 mmol/L [facility] Potassium 3.8 3.5 - 5.0 mmol/L [facility] Comment: Please note: ??Patients with WBC >100,000 may have falsely elevated Potassium levels. ??For accurate Potassium quantification in these patients send serum separator tube (gold top) for subsequent determinations. ??Contact the Clinical Chemistry Laboratory if there are any questions. Chloride 103 98 - 107 mmol/L [facility] Carbon Dioxide 23 22 - 31 mmol/L [facility] Anion Gap 12 5 - 15 mmol/L [facility] Calcium 9.0 8.5 - 10.5 mg/dL [facility] Protein, Total 6.8 6.1 - 8.0 g/dL [facility] Albumin 4.1 3.2 - 5.2 g/dL [facility] Aspartate Aminotransferase 20 0 - 30 unit/L [facility] Alanine Aminotransferase 24 0 - 30 unit/L [facility] Alkaline Phosphatase 137(H) 35 - 105 unit/L [facility] Bilirubin, Total 0.2 0.2 - 1.3 mg/dL [facility] Est Glomerular Filtration Rate 102 >=60 mL/min/1. 73 m?? [facility] Comment: This patient's estimated [...] Ana Maria Zacarias MD CHEMISTRY ORDERABLES [facility] [place] [address] documented in this encounter Visit Diagnoses Diagnosis Insomnia Insomnia, unspecified Elevated liver enzymes Nonspecific elevation of levels of transaminase or lactic acid dehydrogenase (LDH) Diarrhea, unspecified type Class 2 severe obesity due to excess calories with serious comorbidity and body mass index (BMI) of 37.0 to 37.9 in adult documented in this encounter Care Teams Biology Instructor Relationship Specialty Start Date End Date Moise Lala MD PCP - General Family Medicine 06/26/17 02/15/24 documented as of this encounter
--- OUTSIDE RECORDS SUMMARY | 2024-07-01 12:46 | XMS_ITS | Encounter Summary ---
[place] [address] Care Team Providers Care Structural Steel Ironworker Name Role Phone Moise Lala MD Primary Care Provider [phone] Encounter Details Date Type Department Care Team (Late st Contact Info) Description 08/08/2017 3:45 PM EDT [place] [phone] Social History Tobacco Use Types Packs/Day Years [...] on filedocumented in this encounter Care Teams Structural Steel Ironworker Relationship Specialty Start Date End Date Moise Lala MD PCP - General Family Medicine 06/26/17 02/15/24 documented as of this encounter
--- OUTSIDE RECORDS SUMMARY | 2024-07-01 12:46 | XMS_ITS | Encounter Summary ---
[place] [address] Care Team Providers Care Backup Administrative Coordinator Name Role Phone Moise Lala MD Primary Care Provider [phone] Encounter Details Date Type Department Care Team (Late st Contact Info) Description 11/12/2021 Telephone [place] [address] Thomas Hawthorne MD [facility] DR GASTROENTER[place] [address] Social History Tobacco Use Types Packs/Day Years [...] not included. DIVISION OF GASTROENTEROLOGY & HEPATOLOGY [facility] CALL Name: Nikia Denton Date: 11/12/2021 Time: 2:46 PM Referring Location: [facility] Referring Provider: OTILIA Montemayor calls re: Ms. [...] on filedocumented in this encounter Care Teams Backup Administrative Coordinator Relationship Specialty Start Date End Date Moise Lala MD PCP - General Family Medicine 06/26/17 02/15/24 documented as of this encounter
--- OUTSIDE RECORDS SUMMARY | 2024-07-01 12:46 | XMS_ITS | Encounter Summary ---
[place] [address] Care Team Providers Care Trucking Supervisor Name Role Phone Moise Lala MD Primary Care Provider [phone] Reason for Visit * Auth/Cert Specialty Diagnoses / Procedures Referred By Contluda t Referred To Contact Diagnoses Morbid (severe) obesity due to excess calories Nicotine dependence, unspecified, uncomplicated Abnormal uterine bleeding (AUB) perimenopausal AUB Procedures PRO LAPAROSCOPY W TOT HYSTERECT UTERUS 250 GRAM OR LESS LAPAROSCOPY, HYSTERECTOMY, UTERUS<250GMS (WRVU 13.36) Referral ID Status Reason Start Date Expiration Date Visits Re quested Visits Authorized [id number] 1 1 Encounter Details Date Type Department Care Team (Late st Contact Info) Description 08/19/2017 7:30 AM EDT - 08/19/2017 10:45 AM EDT [place] [id number] Kody Toth MD LAPAROSCOPY, TOTAL HYST, UTERUS<250GMS, [...] Nikia Denton Patient Age: 51 y.o. Language: Gambian Race: White Ethnicity: Not nor Admit date: 08/19/2017 Discharge date and time: 08/20/17 8:59 AM Attending Physician: Kody Toth MD Discharge Physician: Kody Toth MD Follow-up Recommendations for Providers: -- 4-6 weeks for postoperative visit -- Final surgical pathology Inpatient Provider Contact Information: [facility] ASSOCIATE CREATIVE DIRECTOR Department, Discharge Diagnoses (Hospital Problems) and Secondary [...] at Discharge: Patient Instructions PATIENT DISCHARGE INSTRUCTIONS [facility] ASSOCIATE CREATIVE DIRECTOR Department: Follow Up Appointment: --Postoperative visit in [...] None Provider Contact Information: Moise Lala MD [phone] documented in this encounter Discharge Instructions * Patient Instructions* Melody Lindo - 08/19/2017 10:53 AM EDT Images from the original note were not included. PATIENT DISCHARGE INSTRUCTIONS [facility] ASSOCIATE CREATIVE DIRECTOR Department: Follow Up Appointment: --Postoperative visit in [...] home pending voiding trial. Please see s [facility]-based assessment below. Neuro/Pain Control: History of fibromyalgia. [...] Dr. Toth. Melody Lindo MD PGY-1 08/20/17 SHANK PAPERER Service Pager: [phone] Associated attestation - Kody Toth MD - [...] Will DWA Melody Werner MD PGY-4 08/19/17 SHANK PAPERER Service Pager: [phone] * Kristy Deal RN - 08/19/2017 11:22 AM EDT Lunch coverage at this time. Pt c/o nausea and having apnea. CPAP currently being checked by [facility] will place on patient when [...] Melody J - 08/19/2017 6:38 AM EDT Recreation Aide Inpatient Admission Interval Note I have reviewed [...] Outcome: Ongoing (Interventions Implemented as Appropriate) 08/19/17 0098 Interdisciplinary Rounds/Family Conf Participants family;nursing;physician * Op Note - Melisa Wilkerson MD - 08/19/2017 11:26 AM EDT Operative Note ?? Patient Name: Nikia Denton : [id number] MR#: [id number] ?? Case Date: 08/19/2017 ?? Surgeon: Surgeon(s) [...] in the dorsal lithotomy position in [facility] stirrups.She was prepped and draped in [...] Operative Note Patient Name: Nikia Denton : [id number] MR#: [id number] Case Date: 08/19/2017 Surgeon: Surgeon(s) and Role: [...] POCT GLUCOSE Routine 08/19/2017 6:26 AM EDT SALESPERSON HOSIERY SCAN 08/19/2017 12:00 AM EDT documented in this encounter Results * POCT Glucose (08/20/2017 7:18 AM EDT) Glucose, POC 113 65 - 199 mg/dL [facility] Comment: Supplemental ranges: <140 mg/dL before meals <180 mg/dL all other times of the day Blood specimen (specimen) 08/20/2017 7:18 AM EDT 08/20/2017 7:18 AM EDT Kody Toth MD POINT OF CARE TEST Melonie QUIÑONES [facility] [place] [address] * POCT Glucose (08/20/2017 3:48 AM EDT) Glucose, POC 116 65 - 199 mg/dL [facility] Comment: Supplemental ranges: <140 mg/dL before meals <180 mg/dL all other times of the day Blood specimen (specimen) 08/20/2017 3:48 AM EDT 08/20/2017 3:48 AM EDT Kody Toth MD POINT OF CARE TEST O NURIA [facility] [place] [address] * POCT Glucose (08/19/2017 11:52 PM EDT) Glucose, POC 117 65 - 199 mg/dL [facility] Comment: Supplemental ranges: <140 mg/dL before meals <180 mg/dL all other times of the day Blood specimen (specimen) 08/19/2017 11:52 PM EDT 08/19/2017 11:52 PM EDT Kody Toth MD POINT OF CARE TEST O NURIA Performing Organization Address [facility] Co de Phone Number [facility] [place] [address] * POCT Glucose (08/19/2017 8:10 PM EDT) Glucose, POC 147 65 - 199 mg/dL [facility] Comment: Supplemental ranges: <140 mg/dL before meals <180 mg/dL all other times of the day Blood specimen (specimen) 08/19/2017 8:10 PM EDT 08/19/2017 8:10 PM EDT Kody Toth MD POINT OF CARE TEST O TYRONEERAJESSENIA Performing Organization Address [facility] Co de Phone Number [facility] [place] [address] * POCT Glucose (08/19/2017 3:40 PM EDT) Glucose, POC 139 65 - 199 mg/dL [facility] Comment: Supplemental ranges: <140 mg/dL before meals <180 mg/dL all other times of the day Blood specimen (specimen) 08/19/2017 3:40 PM EDT 08/19/2017 3:40 PM EDT Kody Toth MD POINT OF CARE TEST O RDERAJESSENIA Performing Organization Address [facility] Co de Phone Number [facility] [place] [address] * Surgical Pathology Report (08/19/2017 8:59 AM EDT) Final Diagnosis [id number] ? Location: [facility]; 16; A The signing pathologist [...] Shruthi Orozco Verified: ??08/22/2017 ?Pathologist Performed at: ??-[facility] Dept. of Pathology, [place], [place] CLINICAL INFORMATION Specimen Submitted: A - [...] nodules. (R8) nsm 08/22/2017 10:10 AM EDT [facility] Uterine Corpus 08/19/2017 8: 59 AM EDT 08/19/2017 8:59 AM EDT Kody Toth MD PATHOLOGY/CYTOLOGY O NURIA Performing Organization Address City/[facility] Co de Phone Number [facility] [place] [address] * Specimen to Pathology (08/19/2017 8:59 AM EDT) AP Specimen 08/19/2017 8:59 AM EDT 08/19/2017 8:59 AM EDT Narrative [facility] - 08/19/2017 8:59 AM EDT Specimen requisition ordered. ??Separate Pathology report to follow Kody Toth MD PATHOLOGY/CYTOLOGY O NURIA Performing Organization Address [facility] Co de Phone Number [facility] [place] [address] * POCT urine (08/19/2017 7:21 AM EDT) POC Urine HCG Negative Negative - Negative POC Control Internal Controls Acceptable Urine specimen (specimen) 08/19/2017 7:21 AM EDT Kody Toth MD POINT OF CARE TEST O RDERAJESSENIA * POCT Glucose (08/19/2017 6:26 AM EDT) Glucose, POC 136 65 - 199 mg/dL [facility] Comment: Supplemental ranges: <140 mg/dL before meals <180 mg/dL all other times of the day Blood specimen (specimen) 08/19/2017 6:26 AM EDT 08/19/2017 6:26 AM EDT Kody Toth MD POINT OF CARE TEST O NURIA Performing Organization Address [facility] [place] [address] * SCAN DOC: SALESPERSON HOSIERY (08/19/2017 12:00 AM EDT) Anatomical Region Laterality [...] Shobha Qureshi CRNA)1006 (Stopped - Provider: Zhao Aayla CRNA) lactated Ringers infusion 1,000 mL 1,000 [...] Routine documented in this encounter Care Teams Trucking Supervisor Relationship Specialty Start Date End Date Moise Lala MD PCP - General Family Medicine 06/26/17 02/15/24 documented as of this encounter
--- OUTSIDE RECORDS SUMMARY | 2024-07-01 12:46 | XMS_ITS | Encounter Summary ---
[place] [address] Care Team Providers Care Bead Supervisor Name Role Phone Moise Lala MD Primary Care Provider [phone] Encounter Details Date Type Department Care Team (Late st Contact Info) Description 10/24/2021 Telephone [place] [phone] Marya Tatum Social History Tobacco Use Types [...] - 10/24/2021 4:15 PM EDT Nikia Denton [id number] Diagnosis/Indication: EUS and possible ERCP (pending EUS [...] on filedocumented in this encounter Care Teams Bead Supervisor Relationship Specialty Start Date End Date Moise Lala MD PCP - General Family Medicine 06/26/17 02/15/24 documented as of this encounter
--- OUTSIDE RECORDS SUMMARY | 2024-07-01 12:46 | XMS_ITS | Encounter Summary ---
[place] [address] Care Team Providers Care Joint Special Operations Name Role Phone Moise Lala MD Primary Care Provider [phone] Reason for Referral * Consultation (Routine) - Closed Specialty Diagnoses / Procedures Referred By Contac t Referred To Contact Gastroenterology Diagnoses Enlarged liver Fatty liver RUQ pain Diarrhea, unspecified type fatty liver/ ruq pain/diarrhea Yasmeen Lala APRN [address] [place] [address] [facility] [address] [place] [phone] Referral ID Status Reason Start Date Expiration Date V isits Requested Visits Authorized [id number] Closed Consult, Test & Treat PCP Updated and/or Approved 01/15/2023 01/15/2024 12 12 Encounter Details Date Type Department Care Team (Latest Contact Info) Description 01/15/2023 Transcribe Orders eDH Incoming Referrals [phone] Yasmeen Lala APRN [address] [place] [address] Enlarged liver; Fatty liver; RUQ [...] type documented in this encounter Care Teams Joint Special Operations Relationship Specialty Start Date End Date Moise Lala MD PCP - General Family Medicine 06/26/17 02/15/24 documented as of this encounter
--- OUTSIDE RECORDS SUMMARY | 2024-07-01 12:46 | XMS_ITS | Encounter Summary ---
Author Organization [facility] [place] [address] Care Team Providers Care Ostomy Rn Name Role Phone Moise Lala MD Primary Care Provider [phone] Reason for Visit * Auth/Cert Specialty Diagnoses [...] EUS- ENDOSCOPIC ULTRASOUND ERCP Guillermo Omer MD [facility] [place] [address] [facility] Referral ID Status Reason Start Date Expiration Date Visits Re quested Visits Authorized [id number] 1 1 Encounter Details Date Type Department Care Team (Latest Contact Info) Description 11/07/2021 7:33 AM EDT - 11/07/2021 12:08 PM EDT Hospital Encounter [place] [address] Guillermo Omer MD [facility] [place] [address] Discharge Disposition: Home Social History [...] the day after the procedure, use an mlsv-anf-rjdmrpz spray to numb your throat. Sucking on [...] occurs, please contact your Doctor. Please call [phone] before 8pm Mon-Fri with problems, questions or concerns. If you call after 8pm or on weekends, call the Hospital at [phone] and ask to speak to the Billet Sawyer alteration specialist and the harvester operator will contact that person for you. When should you call for help? Call [phone] anytime you think you may need emergency [...] like Where can you learn more? [facility] View your After Visit Summary and more online at [email or web address] If you would like to provide [...] cost to you. Content Version: 12.2 ?? 5231-8720 [employer]. Care instructions adapted under license by [facility]. If you have questions about a medical condition or this instruction, always ask your healthcare professional. [employer] disclaims any warranty or liability for your [...] Omer MD - 11/07/2021 8:45 AM EDT [facility] Operative Note Patient Name: Nikia Denton : [id number] MR#: [id number] Case Date: 11/07/2021 Surgeon: Surgeon(s) and Role: [...] AM EDT Ercp, W/Removal Stone, Soto/Pancr Ducts ([id number]) 11/07/2021 8:27 AM EDT EUS and possible ERCP (pending EUS findings) within 2 weeks for possible retained gallstones suggested on outside MRI imaging in setting of abdo pain; post CCY. Ercp, Sphincterotomy ([id number]) 11/07/2021 8:27 AM EDT EUS and possible ERCP (pending EUS findings) within 2 weeks for possible retained gallstones suggested on outside MRI imaging in setting of abdo pain; post CCY. Endoscopic Us Exam, Esoph ([id number]) 11/07/2021 8:27 AM EDT EUS and possible ERCP (pending EUS findings) within 2 weeks for possible retained gallstones suggested on outside MRI imaging in setting of abdo pain; post CCY. UPPER EUS-ENDOSCOPIC ULTRASOUND Routine 11/07/2021 8:19 AM EDT ERCP Routine 11/07/2021 8:06 AM EDT documented in this encounter Results * XR ERCP (11/07/2021 9:46 AM EDT) Narrative [facility] - 11/07/2021 9:47 AM EDT See PACS for result report. Guillermo Omer MD [facility] FILM LIBRARY ORD ERABLES [place], [place] * UPPER EUS-ENDOSCOPIC ULTRASOUND (11/07/2021 8:19 AM EDT) [facility] UPPER ENDOSCOPIC ULTRASOUND [facility] Endoscopy Procedure Date: 11/07/2021 8:19 AM ? Patient Name: Nikia Denton ? Date of : 1965 ? Age: 55 ? Order #: [id number] ? Instrument Name: [id number] ? Procedure: ? Upper EUS Indications: ? [...] * ERCP (11/07/2021 8:06 AM EDT) ERCP [facility] Endoscopy Procedure Date: 11/07/2021 8:06 AM ? Patient Name: Nikia Denton ? N: [id number] ? Date of : 1965 ? Age: 55 ? Order #: [id number] ? Instrument Name: [id number] ? Procedure: ? ERCP Indications: ? Abnormal MRCP, Abnormal endoscopic ? ultrasound of the biliary system, ? Evaluation and possible treatment ? of bile duct stone(s) Providers: ? Guillermo Omer MD, Clau Sagastume ? Yara, TREVA, Buster Pastrana MD: ?Moise Lala Medicines: ? General Anesthesia, Indomethacin ? 100 mg [place] Complications: ? No immediate complications. Procedure: ? [...] procedure ? well. ? Findings: ? A administration intern film of the abdomen was obtained. Surgical [...] was made with a monofilament ? CleverCut eghu-kky-lftw sphincterotome using ERBE ? electrocautery. The sphincterotomy [...] RN) documented in this encounter Care Teams Ostomy Rn Relationship Specialty Start Date End Date Moise Lala MD PCP - General Family Medicine 06/26/17 02/15/24 documented as of this encounter
--- OUTSIDE RECORDS SUMMARY | 2024-07-01 12:46 | XMS_ITS | Encounter Summary ---
[place] [address] Care Team Providers Care Pilot Control Operator Helper Name Role Phone Moise Lala MD Primary Care Provider Reason for Referral * Surgical (Urgent) - Closed Specialty Diagnoses / Procedures Referred By Contac t Referred To Contact Gastroenterology Diagnoses Calculus of common duct Calculus of common duct Procedures EUS and possible ERCP (pending EUS findings) within 2 weeks for possible retained gallstones suggested on outside MRI imaging in setting of abdo pain; post CCY. Moise Lala MD [address] [place] [address] [place] [address] [facility]oscopy [address] [place] [address] Referral ID Status Reason Start Date Expiration Date V isits Requested Visits Authorized [id number] Closed Consult, Test & Treat PCP Updated and/or Approved 10/23/2021 10/23/2022 6 6 Encounter Details Date Type Department Care Team (Late st Contact Info) Description 10/23/2021 Transcribe Orders eDH Incoming Referrals [phone] Moise Lala MD [address] [place] [address] [place] [address] Calculus of common duct Social [...] obstruction documented in this encounter Care Teams Pilot Control Operator Helper Relationship Specialty Start Date End Date Moise Lala MD PCP - General Family Medicine 06/26/17 02/15/24 documented as of this encounter
--- OUTSIDE RECORDS SUMMARY | 2024-07-01 12:46 | XMS_ITS | Encounter Summary ---
Author Organization [facility] [place] [address] Care Team Providers Care Processor Grain Name Role Phone Moise Lala MD Primary Care Provider [phone] Reason for Visit * Auth/Cert Specialty Diagnoses [...] EUS- ENDOSCOPIC ULTRASOUND ERCP Guillermo Omer MD [facility] [place] [address] [facility] Referral ID Status Reason Start Date Expiration Date Visits Re quested Visits Authorized [id number] 1 1 Encounter Details Date Type Department Care Team (Late st Contact Info) Description 11/07/2021 8:30 AM EDT - 11/07/2021 10:00 AM EDT [place] [address] Guillermo Omer MD [facility] [place] [address] UPPER EUS- ENDOSCOPIC ULTRASOUND (WRVU [...] this encounter Discharge Instructions * Discharge Instructions* iVvi Maldonado RN - 11/07/2021 10:08 AM EDT [...] the day after the procedure, use an tqbv-ucx-kogstvf spray to numb your throat. Sucking on [...] occurs, please contact your Doctor. Please call [phone] before 8pm Mon-Fri with problems, questions or concerns. If you call after 8pm or on weekends, call the Hospital at [phone] and ask to speak to the Director On Air earth observations chief scientist and the dixonac operator will contact that person for you. When should you call for help? Call [phone] anytime you think you may need emergency [...] problems, like Where can you learn more? [facility] View your After Visit Summary and more online at [email or web address] If you would like to provide feedback about your hospital experience, please call the Office of Patient and Family Relations at . If you have received this After Visit Summary in error, please immediately return it in person to the department, or notify the [facility] Privacy Office by calling toll free at between the hours of 8AM and 5PM to arrange for our retrieval of the documents at no cost to you. Content Version: 12.2 ?? 6587-3902 [employer]. Care instructions adapted under license by [facility]. If you have questions about a medical condition or this instruction, always ask your healthcare professional. [employer] disclaims any warranty or liability for your [...] Omer MD - 11/07/2021 8:45 AM EDT [facility] Operative Note Patient Name: Nikia Denton : [id number] MR#: [id number] Case Date: 11/07/2021 Surgeon: Surgeon(s) and Role: [...] AM EDT Ercp, W/Removal Stone, Soto/Pancr Ducts ([id number]) 11/07/2021 8:27 AM EDT EUS and possible ERCP (pending EUS findings) within 2 weeks for possible retained gallstones suggested on outside MRI imaging in setting of abdo pain; post CCY. Ercp, Sphincterotomy ([id number]) 11/07/2021 8:27 AM EDT EUS and possible ERCP (pending EUS findings) within 2 weeks for possible retained gallstones suggested on outside MRI imaging in setting of abdo pain; post CCY. Endoscopic Us Exam, Esoph ([id number]) 11/07/2021 8:27 AM EDT EUS and possible [...] Omer MD IM FILM LIBRARY ORD ERABLES [place], [place] * UPPER EUS-ENDOSCOPIC ULTRASOUND (11/07/2021 8:19 AM EDT) UPPER ENDOSCOPIC ULTRASOUND [facility] Endoscopy Procedure Date: 11/07/2021 8:19 AM ? Patient Name: Nikia Denton ? Date of : 1965 ? Age: 55 ? Order #: [id number] ? Instrument Name: [id number] ? Procedure: ? Upper EUS Indications: ? [...] * ERCP (11/07/2021 8:06 AM EDT) ERCP [facility] Endoscopy Procedure Date: 11/07/2021 8:06 AM ? Patient Name: Nikia Denton ? N: [id number] ? Date of : 1965 ? Age: 55 ? Order #: [id number] ? Instrument Name: [id number] ? Procedure: ? ERCP Indications: ? Abnormal MRCP, Abnormal endoscopic ? ultrasound of the biliary system, ? Evaluation and possible treatment ? of bile duct stone(s) Providers: ? Guillermo Omer MD, Clau Hewitt. ? TREVA Livingston, Buster Pastrana MD: ?Moise Lala Medicines: ? General Anesthesia, Indomethacin ? 100 mg [place] Complications: ? No immediate complications. Procedure: ? [...] procedure ? well. ? Findings: ? A fairground operator film of the abdomen was obtained. Surgical [...] was made with a monofilament ? CleverCut svbe-mkh-jfpt sphincterotome using ERBE ? electrocautery. The sphincterotomy [...] RN) documented in this encounter Care Teams Processor Grain Relationship Specialty Start Date End Date Moise Lala MD PCP - General Family Medicine 06/26/17 02/15/24 documented as of this encounter
--- OUTSIDE RECORDS SUMMARY | 2024-07-01 12:46 | XMS_ITS | Encounter Summary ---
Author Organization [facility] [place] [address] Care Team Providers Care Director Card Name Role Phone Moise Lala MD Primary Care Provider [phone] Encounter Details Date Type Department Care Team (Late st Contact Info) Description 08/08/2017 4:20 PM EDT Clinical [place] [address] Social History Tobacco Use Types [...] on filedocumented in this encounter Care Teams Director Card Relationship Specialty Start Date End Date Moise Lala MD PCP - General Family Medicine 06/26/17 02/15/24 documented as of this encounter
--- OUTSIDE RECORDS SUMMARY | 2024-07-01 12:46 | XMS_ITS | Encounter Summary ---
[place] [address] Care Team Providers Care Assistance Specialist Name Role Phone Moise Lala MD Primary Care Provider [phone] Reason for Visit * Reason Comments Vaginal Bleeding Encounter Details Date Type Department Care Team (Latest Contact Info) Description 07/01/2017 4:00 PM EST Office Visit Obstetrics [place] [address] Kody Toth MD Abnormal perimenopausal [...] not included. 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 She is a less than one half packper day smoker who is not currently interested in quitting. She is a nondrinker. She and her , [facility], have been for 11 years. FINGERPRINT CLASSIFIER history: As per the HPI. Family history [...] with no adnexal masses. Pelvic ultrasound from [facility] dated June 25, 2017: The uterus [...] care. I will contact her via the [facility] portal with results of her biopsy. documented [...] PM EST 07/01/2017 5:[address] [facility] - 07/01/2017 5:38 PM EST Specimen requisition ordered. ??Separate Pathology report to follow Kody Toth MD PATHOLOGY/CYTOLOGY O RDERABLES [facility] [place] [address] * Surgical Pathology Report (07/01/2017 5:15 PM EST) Final Diagnosis [id number] ? Location: 5L The signing pathologist has (i) examined the relevant preparation(s) for the specimen(s) and (ii) rendered or confirmed the diagnosis(es). . ?Surgical Pathology DIAGNOSIS Endometrial biopsy: ?? 1. Fragments of benign disordered proliferative endometrium ?intermixed with blood clot. ?? 2. No evidence of hyperplasia or endometritis. CR-0 Electronically signed by: ??Gomez BLUE, John Arias Verified: ??07/07/2017 ?Pathologist Performed at: ??-[facility] Dept. of Pathology, [place], [place] CLINICAL INFORMATION Specimen Submitted: A - Endometrial biopsy Clinical History: 51-year-old with AUB Clinical Diagnosis: Same SPECIMEN PROCESSING A - Labeled/Fixative: Patient demographics, formalin. Quantity/Size: Fragments, 2.0 x 1.4 x 0.1 cm. Tissue Description: Tissue fragments and blood clot. Sections/Processi ng: (T1) ??apb 07/07/2017 1:[address] [facility] ENDOMETRIAL STRUCTURE / Unknown 07/01/2017 5:15 PM EST 07/01/2017 5:15 PM EST Kody Toth MD PATHOLOGY/CYTOLOGY O RDALVERTO [facility] [place] [address] documented in this encounter Visit Diagnoses Diagnosis Abnormal perimenopausal bleeding Premenopausal menorrhagia documented in this encounter Care Teams Assistance Specialist Relationship Specialty Start Date End Date Moise Lala MD PCP - General Family Medicine 06/26/17 02/15/24 documented as of this encounter
--- OUTSIDE RECORDS SUMMARY | 2024-07-01 12:46 | XMS_ITS | Encounter Summary ---
[place] [address] Care Team Providers Care Industrial Maintenance Manager Name Role Phone Moise Lala MD Primary Care Provider [phone] Encounter Details Date Type Department Care Team (Latest Contact Info) Description 08/08/2017 5:55 PM EDT Laboratory Appointment Lab [address] [place] [address] Preop testing Social History Tobacco [...] PM EDT) ABORH Recheck Order Order Placed [facility] ABORH Type Recheck Complete [facility] Blood specimen (specimen) 08/08/2017 5:59 PM EDT 08/08/2017 6:04 PM EDT Narrative Resulting Agency Comment Spec In Lab Kody Toth MD BLOOD BANK LAB ORDER TIANA Performing Organization Address City/[facility]/ZIP Co de Phone Number [facility] [place] [address] * Antibody screen (08/08/2017 5:59 PM EDT) Ab Screen Interp Negative [facility] Expires at [id number] on: 08/22/2017 [facility] Blood specimen (specimen) 08/08/2017 5:59 PM EDT 08/08/2017 6:04 PM EDT Narrative Resulting Agency Comment Spec In Lab Kody Toth MD BLOOD BANK LAB ORDER TIANA [facility] [place] [address] * ABO/Rh Typing (08/08/2017 5:59 PM EDT) ABORH Type A Neg [facility] Blood specimen (specimen) 08/08/2017 5:59 PM EDT 08/08/2017 6:04 PM EDT Narrative Resulting Agency Comment Spec In Lab Kody Toth MD BLOOD BANK LAB ORDER TIANA Performing Organization Address City/[facility]/ZIP Co de Phone Number [facility] [place] [address] * (ABNORMAL) Differential, Automated (08/08/2017 5:59 PM EDT) Neutrophil % 53.8 % [facility] Neutrophil Absolute 5.47 1.70 - 6.10 x10(3)/ L [facility] Lymph % 36.1 % [facility] Lymphocytes Abs 3.7(H) 0.9 - 3.2 x10(3)/[facility] Monocyte % 7.9 % [facility] Monocyte Abs 0.8 0.3 - 0.9 x10(3)/[facility] Eos % 1.1 % [facility] Eosinophils Abs 0.1 0.0 - 0.4 x10(3)/[facility] Basophil % 0.7 % [facility] Baso Absolute 0.1 0.0 - 0.1 x10(3)/[facility] Immature Gran % 0.40 % [facility] Comment: Immature granulocytes(IG's)percentage and absolute count will include metamyelocytes, myelocytes, and promyelocytes. Blood smears from CBCs yielding IG's will be scanned manually for concordance. If this scan disagrees with the automated IG or if promyelocytes are noted, a manual differential will be performed. Immature Gran Absolute 0.04 0.00 - 0.04 x10(3)/ L [facility] Blood specimen (specimen) 08/08/2017 5:59 PM EDT 08/08/2017 6:03 PM EDT Narrative Resulting Agency Comment Spec In Lab Kody Toth MD HEMATOLOGY ORDERABLE S Performing Organization Address City/[facility]/ZIP Co de Phone Number [facility] [place] [address] * (ABNORMAL) Hemogram (08/08/2017 5:59 PM EDT) White Blood Cell 10.2(H) 4.0 - 9.5 x10(3)/mc L [facility] Red Blood Cell 4.29 4.00 - 5.21 x10(6)/mc L [facility] Hemoglobin 12.3 11.7 - 15.5 gm/dL [facility] Hematocrit 37.4 35.7 - 45.8 % [facility] Mean Cell Volume 87.2 82.6 - 94.4 fL [facility] Mean Cell Hemoglobin 28.7 27.1 - 32.0 pg [facility] Mean Cell Hemoglobin Concentration 32.9 31.7 - 35.0 gm/dL [facility] Platelet 337 145 - 357 x10(3)/[facility] RDW Standard Deviation 44.1 37.0 - 46.0 [facility] RDW coefficient of variation 14.0 11.5 - 14.1 % [facility] Mean Platelet Volume 9.7 7.6 - 12.9 fL [facility] NRBC% auto 0.0 % [facility] NRBC Absolute 0.000 0.000 - 0.000 x10(3)/[facility] Blood specimen (specimen) 08/08/2017 5:59 PM EDT 08/08/2017 6:03 PM EDT Narrative Resulting Agency Comment Spec In Lab Kody Toth MD HEMATOLOGY ORDERABLE S [facility] [place] [place] [address] * Comprehensive metabolic panel (non-fasting) (08/08/2017 5:59 PM EDT) Glucose 101 65 - 199 mg/dL [facility] Comment:Diabetes: >=200 mg/d L plus symptoms Blood Urea Nitrogen 16 8 - 18 mg/dL [facility] Creatinine 0.82 0.70 - 1.20 mg/dL [facility] Sodium 137 135 - 145 mmol/L [facility] Potassium 4.0 3.5 - 5.0 mmol/L [facility] Comment: Please note: ??Patients with WBC >100,000 may have falsely elevated Potassium levels. ??For accurate Potassium quantification in these patients send serum separator tube (gold top) for subsequent determinations. ??Contact the Clinical Chemistry Laboratory if there are any questions. Chloride 98 98 - 107 mmol/L [facility] Carbon Dioxide 27 22 - 31 mmol/L [facility] Anion Gap 12 5 - 15 mmol/L [facility] Calcium 9.3 8.5 - 10.5 mg/dL [facility] Protein, Total 7.3 6.1 - 8.0 gm/dL [facility] Albumin 4.3 3.2 - 5.2 gm/dL [facility] Aspartate Aminotransferase 8 0 - 30 unit/L [facility] Alanine Aminotransferase 19 0 - 30 unit/L [facility] Alkaline Phosphatase 104 40 - 104 unit/L [facility] Bilirubin, Total 0.2 0.2 - 1.3 mg/dL [facility] Est Glomerular Filtration Rate >60 >=60 [facility] Comment: The reported eGFR should be multiplied by 1.2 for patients. The MDRD is not an appropriate measure of renal function for patients with body mass extremes or in patients with acute kidney failure. http://[email or web address]DHnkdep http://[email or web address]DHMCnkf Blood specimen (specimen) 08/08/2017 5:59 PM EDT 08/08/2017 6:03 PM EDT Narrative Resulting Agency Comment Spec In Lab Kody Toth MD CHEMISTRY ORDERABLES [facility] [place] [address] documented in this encounter Visit Diagnoses Diagnosis Preop testing Preoperative examination, unspecified documented in this encounter Care Teams Industrial Maintenance Manager Relationship Specialty Start Date End Date Moise Lala MD PCP - General Family Medicine 06/26/17 02/15/24 documented as of this encounter
--- OUTSIDE RECORDS SUMMARY | 2024-07-01 12:46 | XMS_ITS | Encounter Summary ---
[place] [address] Care Team Providers Care Burner Hand Name Role Phone Moise Lala MD Primary Care Provider [phone] Reason for Visit * Reason Onset Date Comments Vaginal Bleeding 08/01/2017 Encounter Details Date Type Department Care Team (Late st Contact Info) Description 08/01/2017 Telephone Obstetrics [place] [address] Naty Lovelace RN Vaginal Bleeding [...] on filedocumented in this encounter Care Teams Burner Hand Relationship Specialty Start Date End Date Moise Lala MD PCP - General Family Medicine 06/26/17 02/15/24 documented as of this encounter
--- OUTSIDE RECORDS SUMMARY | 2024-07-01 12:46 | XMS_ITS | Encounter Summary ---
[place] [address] Care Team Providers Care Hide Shaker Name Role Phone Moise Lala MD Primary Care Provider [phone] Encounter Details Date Type Department Care Team (Late st Contact Info) Description 08/08/2017 5:05 PM EDT Laboratory [place] [phone] Social History Tobacco Use Types Packs/Day Years [...] on filedocumented in this encounter Care Teams Hide Shaker Relationship Specialty Start Date End Date Moise Lala MD PCP - General Family Medicine 06/26/17 02/15/24 documented as of this encounter
--- OUTSIDE RECORDS SUMMARY | 2024-07-01 12:46 | XMS_ITS | Encounter Summary ---
Author Organization [facility] [place] [address] Care Team Providers Care Aws Software Development Engineer Name Role Phone Moise Lala MD Primary Care Provider [phone] Reason for Visit * Reason Onset Date Comments Disability Paperwork 09/24/2017 Encounter Details Date Type Department Care Team (Late st Contact Info) Description 09/24/2017 Telephone Obstetrics [place] [address] Naty Lovelace, RN Disability Paperwork [...] me by Dr. Lindo) and return to americ[employer] board certified orthotist September 30, [address] Toth, to be faxed to insurance company. Also requests letter for work reflecting the same to be faxed to [phone] * Telephone Encounter - Naty Lovelace RN [...] on filedocumented in this encounter Care Teams Aws Software Development Engineer Relationship Specialty Start Date End Date Moise Lala MD PCP - General Family Medicine 06/26/17 02/15/24 documented as of this encounter
--- OUTSIDE RECORDS SUMMARY | 2024-07-01 12:46 | XMS_ITS | Encounter Summary ---
[place] [address] Care Team Providers Care Fax Machine Operator Name Role Phone Moise Lala MD Primary Care Provider [phone] Encounter Details Date Type Department Care Team (Late st Contact Info) Description 08/22/2017 Telephone Obstetrics [place] [phone] Kody Toth MD Social History Tobacco Use [...] Long MD Verified: ??08/22/2017 ?Pathologist Performed at: ??-[facility] Dept. [place]ology, [place], [place] She states she is feeling well, [...] on filedocumented in this encounter Care Teams Fax Machine Operator Relationship Specialty Start Date End Date Moise Lala MD PCP - General Family Medicine 06/26/17 02/15/24 documented as of this encounter
--- OUTSIDE RECORDS SUMMARY | 2024-07-01 12:47 | XMS_ITS | Encounter Summary ---
Author Organization [facility] [place] [address] Care Team Providers Care Transmission Engineer Name Role Phone Yumiko Barahona MD Primary Care Provider [phone] Reason for Visit * Reason Comments Rheumatoid Arthritis Encounter Details Date Type Department Care Team (Late st Contact Info) Description 04/02/2011 8:45 AM EST Office [place] [phone] Alexis Kamara MD [facility] [place] [place] [address] Insomnia; Sleep apnea; Trochanteric bursitis Discharge Disposition: [...] that she should use a CPAP in [place], 2 years ago. Mother notes apnea. Awakes tired every dose. Other Medical Problems. 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 Treated at [facility] and indomethacin worked the best, [...] mg documented in this encounter Care Teams Transmission Engineer Relationship Specialty Start Date End Date Yumiko Barahona MD [address] [place] [address] PCP - General 03/25/11 06/25/17 documented as of this encounter
--- OUTSIDE RECORDS SUMMARY | 2024-07-01 12:47 | XMS_ITS | Encounter Summary ---
Author Organization [facility] [place] [address] Care Team Providers Care Experimental Machinist Name Role Phone Yumiko Barahona MD Primary Care Provider [phone] Reason for Visit * Reason Onset Date Comments Advice Only 12/30/2013 Encounter Details Date Type Department Care Team (Late Contact Info) Description 12/30/2013 Telephone [place] [address] Yvan Garner MD [facility] [address] Advice Only Social History Tobacco Use Types Packs/Day Years Used Date Smoking Tobacco: Every Day Cigarettes Sex and Gender Information Value Date Recorded Sex Assigned at Not on file Gender Identity Not on file Sexual Orientation Not on file documented as of this encounter Miscellaneous Notes * Telephone Encounter - Yvan Garner - 12/30/2013 1:38 AM EDT Telephone Note Caller: Dr. Peters ([facility]) Reason: Advice Discussion: 48 yo obese female patient w/ a PMH significant for GERD and Fibromyalgia presents to [facility] with chest pains and SOB with [...] on filedocumented in this encounter Care Teams Experimental Machinist Relationship Specialty Start Date End Date Yumiko Barahona MD [address] [place] [address] PCP - General 03/25/11 06/25/17 documented as of this encounter
== END 2024-06-30 12:01 | disposition home or self-care (01) ==
LOC: NCHCN 12:00
PROVIDERS: PCP Student in an Organized Health Care Education/Training Program; Visit Provider Student in an Organized Health Care Education/Training Program
DX: D64.9 Anemia, unspecified (principal)
CPT/HCPCS: 82272

== ENCOUNTER 2025-02-22 10:08 | Outpatient (REF) | payer OTHER, SELFPAY ==
[2025-02-22 18:01] LABS: COMMENT (LAB VIEW ONLY) 84.87 mg/dL; Microalb ug/mg Crea 69.3 ug/mg Cr
[2025-02-22 20:26] LABS: Hemoglobin A1C 11.8 % (<5.7)
== END 2025-02-22 10:09 | disposition home or self-care (01) ==
LOC: NCHCN 10:08
PROVIDERS: PCP Student in an Organized Health Care Education/Training Program; Visit Provider Student in an Organized Health Care Education/Training Program
DX: E11.9 Type 2 diabetes mellitus without complications (principal)
CPT/HCPCS: 82043; 82570; 83036

== ENCOUNTER 2025-03-10 18:39 | Emergency (ER) | payer OTHER, SELFPAY ==
[2025-03-10 18:41] VITALS: BP 156/98; PULSE 106; RESP 20; TEMP 36.9; O2SAT 96
--- NOTE | 2025-03-10 18:45 | RT.EKG_ITS ---
APPROVED REPORT Exam: Resting ECG Reason for Exam: QTc Screening Patient Location: E HR:89 bpm ECG Measurements Heart Rate 89 AXIS FL 176 P 45 QRSd 158 QRS -13 QT 422 T 149 QTc 513 Conclusion Sinus rhythm...normal P axis, V-rate 60- 99 Probable left atrial enlargement...P >50mS, <-0.10mV V1 Left bundle branch block...QRSd>120, broad/notched R ST elevation secondary to IVCD...Multiple VCG criteria No STEMI
--- NOTE | 2025-03-10 19:38 | NUR.NOTE ---
Belongings in Zone B locker #3Nursing Note:
--- NOTE | 2025-03-10 19:40 | W.ED.GENAD ---
Discharge Plan Disposition Patient Disposition: Transfer-Acute Inpatient Care Discharge Details Clinical Impression: Suicide ideation Primary Care Provider: Twan Pruitt ED Provider: Raul Tello Home Meds and New Rx's Prescriptions: No Action albuterol sulfate 90 mcg/actuation HFA aerosol inhaler 2 puff inhalation Q6H PRN (Reason: shortness of breath or wheezing) Qty: 8.5 0RF amlodipine 5 MG tablet 5 mg PO DAILY metformin 500 mg tablet 500 mg PO DAILY hydroxyzine HCl 25 mg tablet 25 mg PO TID PRN losartan 25 mg tablet 25 mg PO DAILY pregabalin 100 mg capsule 150 mg PO BID pantoprazole 40 mg tablet,delayed release (DR/EC) 40 mg PO DAILY sertraline 100 mg tablet 200 mg PO DAILY ondansetron 4 mg tablet,disintegrating 4 mg PO Q8H PRN ferrous sulfate 325 mg (65 mg iron) tablet 325 mg PO DAILY pregabalin 75 mg capsule 75 mg PO .AM aripiprazole 2 mg tablet 6 mg PO DAILY mecobalamin (vitamin B12) 1,000 mcg tablet,disintegrating 1,000 mcg sublingual DAILY Rx Instructions: place tablet under tongue and allow to dissolve for at least30 secs before swallowing loperamide [Imodium A-D] 2 mg capsule 2 mg PO Q6H PRN prazosin 1 mg capsule 3 mg PO QHS insulin glargine-yfgn [Semglee(insulin glarg-yfgn)Pen] 100 unit/mL (3 mL) insulin pen 22 unit subcut DAILY Patient Comments: inject 22 units per day and increase by 2 units every 3 days until morning BG <140, max dose 26 units acetaminophen [Tylenol] 325 mg tablet 650 mg PO TID PRN HPI General Date/Time Provider Initiated Documentation: 03/10/25 18:48. HPI Narrative: MDM/Narrative: Initial Assessment: 59-year-old female with diabetes, chronic depression, hypertension, presents with suicidal ideation. ED Course: - Screening blood work obtained - EKG obtained Labs without significant acute abnormality; patient medically cleared. Case discussed with [facility] who is in agreement with voluntary inpatient admission and will begin bed search Clinical Impression: - Suicidal ideation Disposition: Inpatient psychiatric admission, pending bed search This document was created with assistance from [employer]. The patient consented to its use. HPI: The patient is a 59-year-old female with a medical history significant for diabetes mellitus, chronic major depressive disorder, and fibromyalgia, presenting with acute suicidal ideation. Over the past several days, she has experienced hypersomnia and recurrent dreams involving suicide. On the day of presentation, she actively searched for methods to end her life, including insulin overdose and hanging. Upon her 's return home, she disclosed her suicidal thoughts, and her family persuaded her to seek medical evaluation. She continues to experience thoughts of self-harm. No additional medical complaints are reported. ROS: Negative besides as mentioned above Exam: Vital signs: Reviewed. General Appearance: Tearful middle-aged female. HEENT: NCAT, EOMI, not icteric. External ears normal. No rhinorrhea. Moist mucous membranes. Neck: Supple, full range of motion, no observable masses, No meningeal sign. Respiratory: No Respiratory distress. No tachypnea. Cardiovascular: RRR, no edema. Gastrointestinal: Soft, nondistended, No rebound tenderness. Back: No midline tenderness to palpation or palpable step-offs of the C/T/L spine. Skin: Warm and dry, no rash. Neurological: Normal Gait, Grossly intact. Psychiatric: Appropriate for situation. Rhythm: NSR Rate: 89 bpm [place]: Leftward axis axis Intervals: Normal intervals Other findings: No acute ST segment or T wave changes to suggest acute ischemia. Left bundle branch block Labs: Laboratory Tests Range/Units 03/10/25 19:20 WBC (4.4-10.8) 10^3/uL 6.64 RBC (3.93-5.22) 10^6/uL 4.76 Hgb (11.2-15.7) g/dL 14.4 Hct (36.0-46.0) % 42.9 MCV (80-95) fL 90 MCH (27.0-33.0) pg 30.3 MCHC (32.0-36.0) % 33.6 RDW (11.7-14.6) % 12.7 Plt Count (130-400) 10^3/uL 223 MPV (8.0-11.0) fL 10.2 Immature Gran % % 0.3 Neutrophils % % 68.2 Lymphocytes % % 22.3 Monocytes % % 7.5 Eosinophils % % 1.1 Basophils % % 0.6 Nucleated RBC % (0.0-0.3) % 0.0 Absolute Neutrophils (1.2-6.7) 10^3/uL 4.53 Absolute Lymphocytes (1.2-3.4) 10^3/uL 1.48 Absolute Monocytes (0.1-0.8) 10^3/uL 0.50 Absolute Eosinophils (0.0-0.7) 10^3/uL 0.07 Absolute Basophils (0.0-0.2) 10^3/uL 0.04 Sodium (136-145) mmol/L 134 L Potassium (3.5-5.1) mmol/L 4.1 Chloride (98-107) mmol/L 97 L Carbon Dioxide (21.0-32.0) mmol/L 25.3 Anion Gap (3-11) mmol/L 11.7 H BUN (7-18) mg/dL 15 Creatinine (0.55-1.02) mg/dL 0.8 Est GFR (CKD-EPI 2020) (mL/min/1.73m2) 85.35 Glucose (74-106) mg/dL 232 H Calcium (8.5-10.1) mg/dL 9.6 Total Bilirubin (0.2-1.0) mg/dL 0.4 AST (15-37) U/L 38 H ALT (14-59) U/L 94 H Alkaline Phosphatase (46-116) U/L 157 H Total Protein (6.4-8.2) g/dL 8.1 Albumin (3.4-5.0) g/dL 3.8 Lipase (<78) U/L 20 TSH (0.36-3.74) uIU/mL 1.98 Urine Color (Yellow) Yellow Urine Clarity (Clear) Clear Urine pH (5-8) 7.0 Ur Specific [place] (1.005-1.025) 1.020 Urine Protein (Neg-Trace) mg/dL 30 H Urine Ketones (Negative) mg/dL Trace H Urine Blood (Negative) Negative Urine Nitrite (Negative) Negative Urine Bilirubin (Negative) Negative Urine Urobilinogen (Up to 0.2) mg/dL 0.2 Ur Leukocyte Esterase (Negative) Negative Urine RBC (0-2) HPF 0-2 Urine WBC (0-5) HPF 5-10 Ur Epithelial Cells (Negative) HPF Moderate Urine Crystals (Negative) HPF Negative Urine Bacteria (Negative) HPF Packed Urine Casts (Negative) LPF Negative Urine Mucus (Negative) Negative Ur Culture Indicated? No Urine Glucose (Negative) mg/dL >=1000 H Urine Opiates Screen (Negative) Negative Urine Methadone Screen (Negative) Negative Ur Barbiturates Screen (Negative) Negative Ur Tricyclics Screen (Negative) Negative Ur Amphetamines Screen (Negative) Negative U Benzodiazepines Scrn (Negative) Negative Urine Cocaine Screen (Negative) Negative Ur THC Screen (Negative) Negative Related Data Home Medications ?Medication ?Instructions ?Recorded ?Confirmed amlodipine 5 mg tablet 5 mg PO DAILY 05/26/17 03/10/25 metformin 500 mg tablet 500 mg PO DAILY 07/13/19 03/10/25 hydroxyzine HCl 25 mg tablet 25 mg PO TID PRN 08/23/21 03/10/25 losartan 25 mg tablet 25 mg PO DAILY 08/23/21 03/10/25 pantoprazole 40 mg tablet,delayed 40 mg PO DAILY 05/23/22 03/10/25 release pregabalin 100 mg capsule 150 mg PO BID 05/23/22 03/10/25 ondansetron 4 mg disintegrating 4 mg PO Q8H PRN 02/21/23 03/10/25 tablet sertraline 100 mg tablet 200 mg PO DAILY 02/21/23 03/10/25 albuterol sulfate 90 mcg/actuation 2 puff inhalation Q6H PRN 07/05/24 03/10/25 aerosol inhaler shortness of breath or wheezing #8.5 grams aripiprazole 2 mg tablet 6 mg PO DAILY 07/26/24 03/10/25 ferrous sulfate 325 mg (65 mg 325 mg PO DAILY 07/26/24 03/10/25 iron) tablet insulin glargine-yfgn 100 unit/mL 22 unit subcut DAILY 07/26/24 03/10/25 (3 mL) subcutaneous pen (Semglee (insulin glargine-yfgn) Pen) loperamide 2 mg capsule (Imodium 2 mg PO Q6H PRN 07/26/24 03/10/25 A-D) mecobalamin (vitamin B12) 1,000 1,000 mcg sublingual DAILY 07/26/24 03/10/25 mcg disintegrating tablet,sublingual prazosin 1 mg capsule 3 mg PO QHS 07/26/24 03/10/25 pregabalin 75 mg capsule 75 mg PO .AM 07/26/24 03/10/25 acetaminophen 325 mg tablet 650 mg PO TID PRN 08/05/24 03/10/25 (Tylenol) Previous Rx's ?Medication ?Instructions ?Recorded albuterol sulfate 90 mcg/actuation 2 puff inhalation Q6H PRN 07/05/24 aerosol inhaler shortness of breath or wheezing #8.5 grams Allergies Allergy/AdvReac Type Severity Reaction Status Date / Time latex Allergy Severe Skin Rash Verified 03/10/25 18:45 duloxetine (From Cymbalta) Allergy Intermediate dizziness Verified 03/10/25 18:45 Penicillins AdvReac Severe Skin Rash Unverified 03/10/25 18:45 General Stated Complaint: PsychEval RIGOBERTO: 2 Course Vital Signs Vital signs: Vital Signs Temperature 36.9 C 03/10/25 18:41 Pulse 106 H 03/10/25 18:41 Respiratory Rate 20 03/10/25 18:41 Blood Pressure 156/98 H 03/10/25 18:41 Pulse Oximetry 96 03/10/25 18:41 Temperature 36.9 C 03/10/25 18:41 Pulse 106 H 03/10/25 18:41 Respiratory Rate 20 03/10/25 18:41 Blood Pressure 156/98 H 03/10/25 18:41 Blood Pressure Position Sitting 03/10/25 18:41 Pulse Oximetry 96 03/10/25 18:41 Oxygen Delivery Method Room Air 03/10/25 18:41 Oxygen Flow Rate 0 03/10/25 18:41 PFSH All Active Problems (Updated 03/10/25 @ 21:17 by Raul Tello MD) Suicide ideation (Acute) Smoker (Acute) Poorly controlled diabetes mellitus (Acute) Iron deficiency anemia (Acute) Chronic headache (Acute) Insomnia (Acute) Follow up (Acute) Hyperglycemia (Acute) Abdominal pain (Acute) Gall stones (Acute) Diarrhea (Acute) History of colon polyps (Acute) Cholecystitis with cholelithiasis (Acute) Medical History (Updated 03/10/25 @ 21:17 by Raul Tello MD) Hepatomegaly Digestive system disorder Bundle branch block Essential hypertension Adjustment disorder with depressed mood Nicotine dependence Acute perichondritis Major depression Right upper quadrant pain Dyspnea Acute vaginitis Intestinal malabsorption Steatosis of liver Disorder of tendon of left shoulder region LBBB (left bundle branch block) Cardiomyopathy BMI 35.0-35.9,adult Adjustment disorder with anxious mood Menopausal disorder Trochanteric bursitis Corneal ulcer of right eye Bile acid malabsorption syndrome Anemia Tremor Grief at loss of child COVID-19 virus infection 05/2021-symptomatic Hyperplastic colon polyp Tubular adenoma of colon Tendinitis of long head of biceps brachii of left shoulder Arthritis of left acromioclavicular joint Bursitis of left shoulder SLAP lesion of left shoulder (~12/30/19) Type 2 diabetes mellitus Gallstones Trochanteric bursitis, left hip HTN (hypertension) Alopecia GERD (gastroesophageal reflux disease) Abnormal uterine bleeding Hyperlipidemia Fibromyalgia Morbid obesity Obstructive sleep apnea Anxiety associated with depression Tobacco dependence History of juvenile rheumatoid arthritis Depression Chest pain Per pt. stated this was a couple of years ago and had it worked up-negative work up Surgical History (Updated 05/13/23 @ 11:02 by Ellie Seymour) Acquired absence of both cervix and uterus S/P laparoscopic cholecystectomy (~08/29/21) H/O: hysterectomy Dilation and curettage History of Surgical Procedure a. D/C x1. Family History (Updated 05/13/23 @ 11:02 by Ellie Seymour) Mother Rheumatoid arthritis Hypercholesterolemia Father Heart disease Neoplasm lung ca Social History Smoking/Tobacco Use Status: Current every day Tobacco Type: cigarettes Tobacco: How many years used: 41 Smoking risk assessment performed?: Yes Alcohol Intake: never Drug use: Occasionally Substance use type: marijuana and other Details: Edibles for pain associated with her fibromyalgia. Last used weeks ago. 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
[2025-03-10 19:49] LABS: Abs Immature Grans 0.02 10^3/uL (0.0-0.06); HCT 42.9 % (36.0-46.0); HGB 14.4 g/dL (11.2-15.7); Immature Grans % 0.3 %; MCH 30.3 pg (27.0-33.0); MCHC 33.6 % (32.0-36.0); MCV 90 fL (80-95); MPV 10.2 fL (8.0-11.0); Platelet Count 223 10^3/uL (130-400); RBC 4.76 10^6/uL (3.93-5.22); RDW 12.7 % (11.7-14.6); RDW-SD 42.0 fL; WBC 6.64 10^3/uL (4.4-10.8)
[2025-03-10 19:50] LABS: Glucose >=1000 mg/dL (Negative)
[2025-03-10 19:51] LABS: ALT 94 U/L (14-59); AST 38 U/L (15-37); Albumin 3.8 g/dL (3.4-5.0); Alkaline Phosphatase 157 U/L (46-116); Anion Gap 11.7 mmol/L (3-11); BUN 15 mg/dL (7-18); Bilirubin, Total 0.4 mg/dL (0.2-1.0); CO2 25.3 mmol/L (21.0-32.0); Calcium 9.6 mg/dL (8.5-10.1); Chloride 97 mmol/L (98-107); Estimated GFR 85.35 (mL/min/1.73m2); Glucose 232 mg/dL (74-106); Lipase 20 U/L (<78); Potassium 4.1 mmol/L (3.5-5.1); Sodium 134 mmol/L (136-145); Total Protein 8.1 g/dL (6.4-8.2)
[2025-03-10 20:01] LABS: Cannabinoids THC Negative (Negative); METHADONE URINE SCREEN Negative (Negative)
[2025-03-10 20:03] LABS: C & S Indicated? No; RBC 0-2 HPF (0-2)
[2025-03-10 20:11] LABS: TSH (W/Ref FT4) 1.98 uIU/mL (0.36-3.74)
[2025-03-10] MEDS: Insulin Glargine 100 UNITS/ML UNIT 22 UNITS SC (22:44)
[2025-03-10 22:50] VITALS: BP 110/77; PULSE 100; O2SAT 96
[2025-03-10] MEDS: hydrOXYzine PAMOATE 25 MG CAP PO (22:51)
[2025-03-10] MEDS: Pregabalin 150 MG CAP PO (22:51)
[2025-03-10] MEDS: Prazosin 1 MG CAP PO (22:51)
[2025-03-11] MEDS: Sertraline 100 MG TAB 200 MG PO (08:36)
[2025-03-11] MEDS: Pantoprazole 40 MG TABCR PO (08:36)
[2025-03-11] MEDS: Losartan 25 MG TAB PO (08:36)
[2025-03-11] MEDS: Pregabalin 150 MG CAP PO (08:36)
[2025-03-11] MEDS: amLODIPine 5 MG TAB PO (08:36)
[2025-03-11] MEDS: Ferrous Sulfate 325 MG TAB PO (08:36)
[2025-03-11 08:46] VITALS: BP 120/68; PULSE 85; RESP 18; TEMP 35.7; O2SAT 97
--- NOTE | 2025-03-11 10:12 | ED.PSYCHBOAR ---
Date of service: 03/11/25 Time of Service: 10:12 Psychiatric [facility] Handoff Update Brief Story: 59-year-old female with history of diabetes presenting with suicidal thoughts. 10:10 AM I spoke w/Opal Gaytan from the [facility] who graciously agreed to accept the patient for hospitalization. 4:15 PM I signed transfer paperwork and patient was transferred to the [facility]. Status: voluntary Able to leave: would need physician/LEORA and crisis evaluation prior to leaving Mediation Reconciliation performed: Yes Code Status ordered: Yes Diet ordered: Yes Discharge Plan Disposition Patient Disposition: Psychiatric Hospital/Unit Specific Psychiatric Facility: [facility] Discharge Details Clinical Impression: Suicide ideation Primary Care Provider: Twan Pruitt ED Provider: Moise Dubose [facility] Meds and New Rx's Prescriptions: Continued albuterol sulfate 90 mcg/actuation HFA aerosol inhaler 2 puff inhalation Q6H PRN (Reason: shortness of breath or wheezing) Qty: 8.5 0RF amlodipine 5 MG tablet 5 mg PO DAILY metformin 500 mg tablet 500 mg PO DAILY hydroxyzine HCl 25 mg tablet 25 mg PO TID PRN losartan 25 mg tablet 25 mg PO DAILY pregabalin 100 mg capsule 150 mg PO BID pantoprazole 40 mg tablet,delayed release (DR/EC) 40 mg PO DAILY sertraline 100 mg tablet 200 mg PO DAILY ondansetron 4 mg tablet,disintegrating 4 mg PO Q8H PRN ferrous sulfate 325 mg (65 mg iron) tablet 325 mg PO DAILY pregabalin 75 mg capsule 75 mg PO .AM aripiprazole 2 mg tablet 6 mg PO DAILY mecobalamin (vitamin B12) 1,000 mcg tablet,disintegrating 1,000 mcg sublingual DAILY Rx Instructions: place tablet under tongue and allow to dissolve for at least30 secs before swallowing loperamide [Imodium A-D] 2 mg capsule 2 mg PO Q6H PRN prazosin 1 mg capsule 3 mg PO QHS insulin glargine-yfgn [Semglee(insulin glarg-yfgn)Pen] 100 unit/mL (3 mL) insulin pen 22 unit subcut DAILY Patient Comments: inject 22 units per day and increase by 2 units every 3 days until morning BG <140, max dose 26 units acetaminophen [Tylenol] 325 mg tablet 650 mg PO TID PRN Discharge Instructions Additional Instructions: You were seen for your thoughts of self-harm. You are excepted to the [facility]. No medications were changed.
--- NOTE | 2025-03-11 10:54 | PDOC.MHCN ---
Mental Health Emergency Note Facilities contacted if Applicable [facility] Not accepted,
== END 2025-03-11 16:11 ==
PROVIDERS: General Practice; Emergency Provider Emergency Medicine; PCP Student in an Organized Health Care Education/Training Program
DX: R45.851 Suicidal ideations (principal); F32.A Depression, unspecified; I44.7 Left bundle-branch block, unspecified; I10 Essential (primary) hypertension; E11.9 Type 2 diabetes mellitus without complications; E78.5 Hyperlipidemia, unspecified; Z79.4 Long term (current) use of insulin; Z79.84 Long term (current) use of oral hypoglycemic drugs
CPT/HCPCS: 00123; 80053; 80307; 82962; 83690; 93005; 99285; J3490; 81003; 81015; 84443; 85025; 93010; J1815